=== PATIENT | male | born 1985 | race Caucasian/White ===

== ENCOUNTER 2022-01-20 22:51 | Emergency (ER) | payer MEDICARE, SELFPAY ==
[2022-01-20 23:08] VITALS: BP 113/83; PULSE 111; RESP 20; TEMP 36.9; O2SAT 97; BMI 24.3
--- NOTE | 2022-01-20 23:35 | CRLHL7_ITS ---
For Patients: As a result of the Cures Act, medical imaging exams and procedure reports are released immediately into your electronic medical record. You may view this report before your referring provider. If you have questions, please contact your health care provider. INDICATION: Knee swelling, pain TECHNIQUE: Knee radiograph 3 views COMPARISON: None FINDINGS: Bone: No acute fractures or aggressive bone lesions are identified. Remote fracture deformity of the distal femur with intramedullary mylene and distal interlocking screw are noted. Joint: The medial, lateral, and patellofemoral compartments are unremarkable. Large knee effusion is present. Soft tissue: Unremarkable. No radiopaque foreign bodies are seen. IMPRESSIONS: 1. No acute osseous injuries or abnormalities are noted. 2. Large knee effusion is present. Dictated by Andres Tripathi MD @ 01/21/2022 12:05:58 AM Dictated by: Andres Tripathi MD @ 01/21/2022 00:06:04 (Electronically Signed)
[2022-01-20] MEDS: KETOROLAC 60 MG/2 ML inj IM (23:55)
[2022-01-21 01:10] VITALS: BP 128/87; PULSE 95; RESP 18; O2SAT 98
[2022-01-21] MEDS: KETAMINE HCL 20 MG in 0.9 % SODIUM CHLORIDE 100 ml 100 ML 300.6 MG IVPB (01:12)
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
--- NOTE | 2022-01-21 04:05 | PC.NURSE ---
Patient now reporting poor pain control and is requesting medication for pain. Dr. Norris notified.
[2022-01-21 04:10] VITALS: BP 110/88; PULSE 88; RESP 18; O2SAT 98
[2022-01-21] MEDS: HYDROmorphone 0.5 mg/0.5 ml inj IVP (04:22)
--- NOTE | 2022-01-21 04:29 | PC.NURSE ---
Dilauded given. Patient placed on continuous pulse oximetry.
--- NOTE | 2022-01-21 06:21 | ED.NURSE ---
Patient c/o increasing knee pain. MD notified.
--- NOTE | 2022-01-21 07:00 | PC.NURSE ---
Patient discharged. Patient is in agreement and requests to wait in the waiting room for a taxi to bring him home.
== END 2022-01-21 07:05 | disposition home or self-care (01) ==
PROVIDERS: Emergency Provider Family Medicine
DX: M25.461 Effusion, right knee (principal); M25.561 Pain in right knee
CPT/HCPCS: 73562; 96365; 96372; 96375; 99283; 99284; J1170; J1885; J3490

== ENCOUNTER 2022-02-27 10:19 | Outpatient (CLI) | payer MEDICARE, SELFPAY | END 2022-02-27 10:20 | disposition home or self-care (01) | LOC: AMB 03-29 10:18 | PROVIDERS: Visit Provider Family Medicine | DX: S09.90XA Unspecified injury of head, initial encounter (principal); V49.9XXA Car occupant (driver) (passenger) injured in unspecified traffic accident, initial encounter; Y92.413 State road as the place of occurrence of the external cause | CPT/HCPCS: A0425; A0427 ==

== ENCOUNTER 2022-05-10 03:27 | Emergency (ER) | payer MEDICARE, SELFPAY ==
[2022-05-10 03:33] VITALS: BP 132/78; PULSE 87; RESP 18; TEMP 36.7; O2SAT 99; BMI 24.3
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
[2022-05-10 04:05] VITALS: BP 135/84; PULSE 85; RESP 18; O2SAT 99
[2022-05-10] MEDS: LIDOCAINE 1% MDV 3 ML INJECTION (04:10)
[2022-05-10 04:11] VITALS: BP 132/78; PULSE 87; RESP 18; TEMP 36.7
--- OUTSIDE RECORDS SUMMARY | 2022-05-10 04:12 | XMS_ITS | Encounter Summary ---
:1985 Author Organization [facility] Address [address] [place] [address] Care Team Providers Name Role Phone Meng Conner MD Primary Care Provider Unavailable Reason for Visit Procedure/Equipment (Routine) - Incomplete Specialty Diagnoses / Procedures Referred By Contact Refer red To Contact Diagnoses Effusion of right knee Fidencio Yuen, DO Procedures MR Knee Rt WO IV Cont W Metal Suppression [place] [id number] [place] [address] Referral ID Status Reason Start Date Expiration Date Visits V isits Requested Authorized [id number] Incomplete 01/21/2022 04/22/2023 1 1 Encounter Details Date Type Department Care Team Description 01/21/2022 [facility] [place] Fidencio Benítez Effusion of right Procedure [place] [address] J, DO knee Radiology [place] [address] [address] [place], [place] [address] [address] [place], [place] [phone] (Work) [phone] Social History Tobacco Use Types Packs/Day Years Used Date Smoking Tobacco: Unknown Alcohol Use Standard Drinks/Week Comments No 0 (1 standard drink = 0.6 oz pure alcoho l) Sex Assigned at Date Recorded Not on file documented as of this encounter Plan of Treatment Upcoming Encounters Date Type Specialty Care Team Description 05/16/2022 Appointment Orthopedics Derrell Lei MD [address] [place] [phone] (Wo rk) documented as of this encounter Procedures Procedure Name Priority Date/Time Associated Comments Diagnosis MR KNEE RT WO IV CONT STAT 01/21/2022 8:48 PM Effusion of r ight Results for this W METAL SUPPRESSION CDT knee procedur e are in the results section. documented in this encounter Results MR Knee Rt WO IV Cont W Metal Suppression (01/21/2022 8:48 PM CDT) Anatomical Region Laterality Modality Lower Extremity, Knee, MSK Right Magnetic Reso nance Specimen (Source) Anatomical Collection Method Collection Time Re ceived Time Location / / Volume Laterality 01/21/2022 8:11 PM CDT Impressions 01/22/2022 8:06 AM CDT TECHNIQUE: ??Routine MRI of the right knee was performed without contrast using metal suppression technique. COMPARISON: ??12/16/2021. FINDINGS: MEDIAL COMPARTMENT: ??There are no focal cartilage defects. The medial meniscus is normal without evidence of tear. LATERAL COMPARTMENT: ??There are no foca l cartilage defects. There is subtle blunting and irregularity involving the apical free edge of the mid body of the lateral meniscus on one image only (image 10 of series 6), equivocal for small area o f fraying. 3 mm osteochondral body in the posterior aspect of the lateral compartment is unchanged. PATELLOFEMORAL JOINT: ??Previously seen chondral flap tear in the cartilage of the inferior aspect of the central trochlea is not definitely identified on today's examination. There is minimal superfici al fissuring in the cartilage of the med ial patellar facet. There is a new large joint effusion. There are multiple lobulated areas of intermediate signal intensity throughout the joint which may repres ent hemorrhagic debris. Given that this finding was not present on the previous MRI from one month ago, this is unlikely to represent pigmented villonodular synovitis. LIGAMENTS AND TENDONS: ??The anterior an d posterior cruciate ligaments, medial collateral ligament, iliotibial band, fibular collateral ligament and biceps femoris tendons are intact. The popliteus musc le and tendon are normal. There is no ev idence of injury to the posterolateral corner supporting structures. EXTENSOR MECHANISM: The quadriceps and p atellar tendons are normal. The medial retinaculum, medial patellofemoral ligament, and lateral retinaculum are normal. MARROW AND SOFT TISSUES: ??There is intr amedullary mylene and screw fixation of the distal femur. Moderate soft tissue edema about the joint is likely related to the large joint effusion. IMPRESSION: ?? 1.New large joint effusion with multiple lobulated areas of intermediate signal intensity throughout the joint which may represent proteinaceous or hemorrhagic debris. Given that this is a new finding f rom the prior MRI from one month ago, pi gmented villonodular synovitis wouldn't be less likely. Septic arthritis would not be excluded. 2. Subtle blunting and irregularity invo lving the apical free edge of the mid body of the lateral meniscus on one image only is equivocal for small area of fraying. The meniscus is otherwise intact. 3. No change in 3 mm osteochondral body in the posterior aspect of the lateral compartment. 4. Previously seen chondral flap tear in the central trochlea inferiorly is not definitely identified on today's examination. Procedure Note Orestes Rosa MD - 01/22/2022 IMPRESSION TECHNIQUE: Routine MRI of the right knee was performed without contrast using metal suppression technique. COMPARISON: 12/16/2021. FINDINGS: MEDIAL COMPARTMENT: There are no focal c artilage defects. The medial meniscus is normal without evidence of tear. LATERAL COMPARTMENT: There are no focal cartilage defects. There is subtle blunting and irregularity involving the apical free edge of the mid body of the lateral meniscus on one image only (image 10 of series 6), equivocal for small area of fraying. 3 m m osteochondral body in the posterior aspect of the lateral compartment is unchanged. PATELLOFEMORAL JOINT: Previously seen ch ondral flap tear in the cartilage of the inferior aspect of the central trochlea is not definitely identified on today's examination. There is minimal superficial fissuring in the cartilage of the medial patellar facet. There is a new large joint effusion. There are multiple lobulated areas of intermediate signal intensity throughout the joint which may represent hemorrhagic debris. Given that this finding was not present on the previous MRI from one month ago, this is unlikely to represent pigmented villonodular synovitis. LIGAMENTS AND TENDONS: The anterior and posterior cruciate ligaments, medial collateral ligament, iliotibial band, fibular collateral ligament and biceps femoris tendons are intact. The popliteus muscle and tendon are normal. There is no evidence of injury t o the posterolateral corner supporting structures. EXTENSOR MECHANISM: The quadriceps and p atellar tendons are normal. The medial retinaculum, medial patellofemoral ligament, and lateral retinaculum are normal. MARROW AND SOFT TISSUES: There is intram edullary mylene and screw fixation of the distal femur. Moderate soft tissue edema about the joint is likely related to the large joint effusion. IMPRESSION: 1.New large joint effusion with multiple lobulated areas of intermediate signal intensity throughout the joint which may represent proteinaceous or hemorrhagic debris. Given that this is a new finding from the prior MRI from one month ago, pigmented villonodul ar synovitis wouldn't be less likely. Septic arthritis would not be excluded. 2. Subtle blunting and irregularity invo lving the apical free edge of the mid body of the lateral meniscus on one image only is equivocal for small area of fraying. The meniscus is otherwise intact. 3. No change in 3 mm osteochondral body in the posterior aspect of the lateral compartment. 4. Previously seen chondral flap tear in the central trochlea inferiorly is not definitely identified on today's examination. 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
--- OUTSIDE RECORDS SUMMARY | 2022-05-10 04:12 | XMS_ITS | Encounter Summary ---
:1985 Author Organization Replaced by [facility] Address [address] [place] [address] Care Team Providers Name Role Phone Meng Conner MD Primary Care Provider Unavailable Reason for Visit Procedure/Equipment (Routine) - Incomplete Specialty Diagnoses / Procedures Referred By Contact Refer red To Contact Diagnoses Right knee pain, unspecified chronicity Right knee injury, sequela Demarcus Brunner MD Procedures MR Knee Rt WO IV Cont W Metal Suppression [address] [place] [place] [address] Referral ID Status Reason Start Date Expiration Date Visits V isits Requested Authorized [id number] Incomplete 12/13/2021 03/14/2023 1 1 Encounter Details Date Type Department Care Team Description 12/16/2021 Ancillary [facility] Radiology MRI Demarcus Brunner, Right knee pain, unspecified chronicity; Procedure [address] Right knee injury, sequela Drive [address] [facility] [place] [address] [phone] Social History Tobacco Use Types Packs/Day Years Used Date Smoking Tobacco: Unknown Alcohol Use Standard Drinks/Week Comments No 0 (1 standard drink = 0.6 oz pure alcoho l) Sex Assigned at Date Recorded Not on file documented as of this encounter Plan of Treatment Upcoming Encounters Date Type Specialty Care Team Description 05/16/2022 Appointment Orthopedics Derrell Lei MD [address] [place] [phone] (Wo rk) documented as of this encounter Procedures Procedure Name Priority Date/Time Associated Diagnosis Comme nts MR KNEE RT WO IV STAT 12/16/2021 9:02 AM Right knee pain, R esults for this CONT W METAL CDT unspecified procedure are i n SUPPRESSION chronicity the results Right knee injury, section. sequela documented in this encounter Results MR Knee Rt WO IV Cont W Metal Suppression (12/16/2021 9:02 AM CDT) Anatomical Region Laterality Modality Lower Extremity, Knee, MSK Right Magnetic Reso nance Specimen (Source) Anatomical Collection Method Collection Time Re ceived Time Location / / Volume Laterality 12/16/2021 8:19 AM CDT Impressions 12/16/2021 9:08 AM CDT TECHNIQUE: ??Routine MRI of the right knee was performed without contrast. COMPARISON: ??Radiographs dated FINDINGS: MEDIAL COMPARTMENT: ??There are no focal cartilage defects. The medial meniscus is normal without evidence of tear. LATERAL COMPARTMENT: ??There are no foca l cartilage defects. The lateral meniscus is normal without evidence of tear. PATELLOFEMORAL JOINT: ??There is a 3 mm chondral flap tear at the inferior aspect of the central trochlear groove (series 5 slice 19). There is mild adjacent chondral thinning. There is no significant j oint effusion or popliteal cyst. There i s a 3 mm ossicle cartilaginous body at the posterior aspect of the lateral compartment (sagittal slice 18). LIGAMENTS AND TENDONS: ??The anterior an d [...] normal. MARROW AND SOFT TISSUES: ??There is no e vidence of stress reaction, fracture or avascular necrosis. There is intramedullary mylene with interlocking screw in the distal femur, resulting in susceptibility a rtifact. There is no evidence of a soft tissue mass. There is post surgical scarring in Hoffa's fat. IMPRESSION: ?? 1. Mild chondromalacia of the trochlear groove. 2. 3 mm intra-articular body at the post erior aspect of the lateral compartment. 3. No evidence of a meniscal or ligament tear. Procedure Note Justen Coelho MD - 12/16/2021Fo rmatting of this note might be different from the original. IMPRESSION TECHNIQUE: Routine MRI of the right knee was performed without contrast. COMPARISON: Radiographs dated 11/13/2021 FINDINGS: MEDIAL COMPARTMENT: There are no focal c artilage defects. The medial meniscus is normal without evidence of tear. LATERAL COMPARTMENT: There are no focal cartilage defects. The lateral meniscus is normal without evidence of tear. PATELLOFEMORAL JOINT: There is a 3 mm ch ondral flap tear at the inferior aspect of the central trochlear groove (series 5 slice 19). There is mild adjacent chondral thinning. There is no significant joint effusion or popliteal cyst. There is a 3 mm ossicle cartilaginous body at the posterior aspect of the lateral compartment (sagittal slice 18). LIGAMENTS AND TENDONS: The anterior and posterior [...] normal. MARROW AND SOFT TISSUES: There is no mary carmen dence of stress reaction, fracture or avascular necrosis. There is intramedullary mylene with interlocking screw in the distal femur, resulting in susceptibility artifact. There is no evidence of a soft tissue mass. There is post surgical scarring in Hoffa's fat. IMPRESSION: 1. Mild chondromalacia of the trochlear groove. 2. 3 mm intra-articular body at the post erior aspect of the lateral compartment. 3. No evidence of a meniscal or ligament tear. Demarcus Brunner MD RAD MRI documented in this encounter Visit Diagnoses Diagnosis Right knee pain, unspecified chronicity Right knee injury, sequela documented in this encounter Care Teams Motor Coach Bus Driver Relationship Specialty Start Date End Date Meng Conner MD PCP - General 02/03/[address] [facility], [address] documented as of this encounter
--- OUTSIDE RECORDS SUMMARY | 2022-05-10 04:12 | XMS_ITS | Encounter Summary ---
:1985 Author Organization Formerly [facility], [facility] Address [address], [place] [address] Care Team Providers Name Role Phone Meng Conner MD Primary Care Provider Unavailable Reason for Visit Reason Comments Follow-up Right knee Encounter Details Date Type Department Care Team Description 02/25/2022 Office Visit Sy Goinsart hrosis, right knee (Primary Dx); Orthopedic Urgent Marquita Ceballos MD Pain and swelling of right knee Care [id number] [place] [address] [place] [address] [phone] Social History Tobacco Use Types Packs/Day Years Used Date Smoking Tobacco: Unknown Alcohol Use Standard Drinks/Week Comments No 0 (1 standard drink = 0.6 oz pure alcoho l) Sex Assigned at Date Recorded Not on file documented as of this encounter Last Filed Vital Signs Vital Sign Reading Time Taken Comments Blood Pressure - - Pulse - - Temperature 36.7 ??C (98 ??F) 02/25/2022 3:09 PM CDT Respiratory Rate - - Oxygen Saturation - - Inhaled Oxygen Concentration - - Weight - - Height - - Body Mass Index - - documented in this encounter Patient Instructions Patient InstructionsSchLee Ann lu, ATC - 02/25/2022 2:30 PM CDT Thank you for choosing [facility] for your health care visit today. Sy Beal MD Imaging Bus Attendant: [facility] [id number] [place] [address]. Call [phone] to schedule. Medication Requests: Prescriptions are filled on Weekdays before 3:00PM For all medication refills: Request a refill using [facility] or contact your Pharmacy Paperwork Requests: FMLA or disability paperwork can be faxed to: [phone] Please allow 7-10 business days for completion of all paperwork. [employer] Work[employer]'s [employer] Services: E-mail Address: [email or web address] What is Know Your Cost? Know Your Cost is a service for patients and patient/members to call and receive personalized cost information and estimates across our care group. The phone number is (COST) Sunday - Sunday 8 AM to 5 PM To request copies of your medical records, call: [phone] (option 4) Diagnosis: R knee effusion Plan: Follow Up: With Dr. García. Medications: Your physician has sent a prescription for Hydrocodone- Acetaminophen ([place]) and Indocin to your preferred pharmacy. Take this medication as instructed. Please be sure to review all information provided on your prescription regarding this drug and any potential side effects you may experience. Ask your pharmacist if any questions arise. RICE: - No weight-bearing with the affected limb. - Gentle range of motion. Brace/DME: You were provided a Knee sleeve and Crutches in clinic today. Please use and care according to instructions given today. This item will be billed to your insurance. If insurance does not cover this item, you will be billed for any uncovered amount. You should wear your items as directed in clinic. If you have any questions regarding your visit or next steps, please contact us at [phone]. documented in this encounter Progress Notes Sy Beal MD - 02/25/2022 2:30 PM CDT Clinic Progress Note Patient Name: Landon Lerma : 1985 Date of Service: 02/25/2022 CC: Chief Complaint Patient presents with Follow-up Right knee HPI: Landon Lerma is a 36 y.o. male presenting for follow-up evaluation and treatment of right knee injury. He has been seen multiple at essentially all of our urgent cares and most recently Dr. Darby at the Orthopedic clinic. Note from 01/25/2022 was review. He had hemarthrosis at that time. Notes he took 2 weeks off of work. He was helping his girlfriend move today and exacerbated his knee pain. 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 Looks very uncomfortable. Neuro: Neurovascular status is normal. MSK/Extremities: Right knee: positive for a large effusion, no redness or warmth. Tender on palpation on medial and lateral joint lines. Able to actively extend the knee although guarding because of pain. tenderness onpalpation of the entire knee. range of motion limited to about 30-90 degrees. Gait: antalgic IMAGING: MRI right knee 01/21/2022 IMPRESSION: 1.New large joint effusion with multiple lobulated areas of intermediate signal intensity throughoutthe joint which may represent proteinaceous or hemorrhagic debris. Given that this is a new finding from the prior MRI from one month ago, pigmented villonodular synovitis wouldn't be less likely. Septic arthritis would not be excluded. 2. Subtle blunting and irregularity involving the apical free [...] is not definitely identified on today's examination. ASSESSMENT: 1. Pain and swelling of right knee 2. Hemarthrosis, right knee PLAN: I recommended an aspiration procedure and possibly cortisone injection if the aspirate is not bloody. I also recommended an orthopedic surgery consult. He has seen Dr. Darby in the past. It looks like labs were ordered by Dr. Darby but not completed. There is a question of PVS of his last MRI although the official report was somewhat vague. Pain management: I think opioids at this point is appropriate. On review of his history he has a past history of methamphetamine use. No concerning findings on the PDMP report. Indomethacin was also given. He was also given crutches. I also encouraged range of motion exercises for the knee as tolerated. Landon agrees with the above treatment plan and advised to call the clinic with worsening symptoms or other concerns. All questions answered. PROCEDURE: The risk and benefits of knee joint aspiration was explained to the patient. Verbal informed consentwas obtained. After sterile prep with iodine follow by alcohol wipes, the right knee joint was aspirated and yielded 10 mL of bloody synovial joint fluid. A steroid injection was not given because of this. A sterile compression dressing was applied. Scribe Disclosure: Scribed for Sy Beal MD by elle Caraballo, on 02/26/2022 at 1:42 PM. I, Sy Beal MD, have personally reviewed and agreed with the information entered by the scribe. documented in this encounter Plan of Treatment Upcoming Encounters Date Type Specialty Care Team Description 05/16/2022 Appointment Orthopedics Derrell Lei MD [address] [place], [place] [address] (Wo rk) documented as of this encounter Visit Diagnoses Diagnosis Hemarthrosis, right knee - Primary Pain and swelling of right knee documented in this encounter Care Teams Cod Clerk Relationship Specialty Start Date End Date Meng Conner MD PCP - General 02/03/[address] [facility], [address] documented as of this encounter
--- OUTSIDE RECORDS SUMMARY | 2022-05-10 04:12 | XMS_ITS | Encounter Summary ---
:1985 Author Organization [facility] Address [address] [place] [address] Care Team Providers Name Role Phone Meng oCnner MD Primary Care Provider Unavailable Encounter Details Date Type Department Care Team Description 03/04/2022 Lab Visit [facility] Hemarthrosis [address] [place] [address] Social History Tobacco Use Types Packs/Day Years Used Date Smoking Tobacco: Unknown Alcohol Use Standard Drinks/Week Comments No 0 (1 standard drink = 0.6 oz pure alcoho l) Sex Assigned at Date Recorded Not on file documented as of this encounter Plan of Treatment Upcoming Encounters Date Type Specialty Care Team Description 05/16/2022 Appointment Orthopedics Derrell Lei MD [address] [place] [address] (Wo rk) documented as of this encounter Procedures Procedure Name Priority Date/Time Associated Diagnosis Comme nts CBC AND DIFFERENTIAL Routine 03/04/2022 3:42 Hemarthrosis Resu lts for this PANEL PM CDT procedure are i n the results section. ANTI-CCP AB Routine 03/04/2022 3:42 Hemarthrosis Results for this PM CDT procedure are i n the results section. COMPLETE BLOOD Routine 03/04/2022 3:42 Hemarthrosis Results fo r this COUNT-W/DIFF PM CDT procedure are i n the results section. BASIC METABOLIC PANEL Routine 03/04/2022 3:42 Hemarthrosis Res ults for this PM CDT procedure are i n the results section. APTT (ACTIVATED Routine 03/04/2022 3:42 Hemarthrosis Results f or this PARTIAL THROMBOPLASTIN PM CDT proce dure are in TIME the results section. RHEUMATOID FACTOR, Routine 03/04/2022 3:42 Hemarthrosis Result s for this QUANT PM CDT procedure are i n the results section. C-REACTIVE PROTEIN Routine 03/04/2022 3:42 Hemarthrosis Result s for this PM CDT procedure are i n the results section. MARLINE, QUANT (TITER) Routine 03/04/2022 3:42 Hemarthrosis Result s for this PM CDT procedure are i n the results section. URIC ACID Routine 03/04/2022 3:42 Hemarthrosis Results for this PM CDT procedure are i n the results section. INR/PROTIME Routine 03/04/2022 3:42 Hemarthrosis Results for this PM CDT procedure are i n the results section. ESR Routine 03/04/2022 3:42 Hemarthrosis Results for this PM CDT procedure are i n the results section. documented in this encounter Results Complete Blood Count-W/Diff (03/04/2022 3:42 PM CDT) P athologist Signature WBC 7.8 3.5 - 10.5 03/04/2022 [facility] x10(9)/L 3:47 PM CDT LABORATORY RBC 4.81 4.32 - 03/04/2022 [facility] 5.72 3:47 PM CDT LABORATORY x10(12)/L Hemoglobin 14.0 13.5 - 03/04/2022 [facility] 17.5 g/dL 3:47 PM CDT LABORATORY HCT 43.2 38.8 - 03/04/2022 [facility] 50.0 % 3:47 PM CDT LABORATORY MCV 89.8 80.0 - 03/04/2022 [facility] 100.0 fL 3:47 PM CDT LABORATORY MCH 29.1 27.6 - 03/04/2022 [facility] 33.3 pg 3:47 PM CDT LABORATORY MCHC 32.4 31.5 - 03/04/2022 [facility] 35.2 g/dL 3:47 PM CDT LABORATORY RDW 12.8 11.9 - 03/04/2022 [facility] 15.5 % 3:47 PM CDT LABORATORY Platelets 313 150 - 450 03/04/2022 [facility] x10(9)/L 3:47 PM CDT LABORATORY Automated NRBC 0 <=0 /100 03/04/2022 [facility] WBC 3:47 PM CDT LABORATORY Neutrophil 5.2 1.7 - 7.0 03/04/2022 [facility] Absolute 10(9)/L 3:47 PM CDT LABORATORY Lymphocyte 1.5 1.0 - 4.8 03/04/2022 [facility] Absolute 10(9)/L 3:47 PM CDT LABORATORY Monocytes 0.6 0.2 - 0.9 03/04/2022 [facility] Absolute 10(9)/L 3:47 PM CDT LABORATORY Eosinophil 0.4 0.0 - 0.5 03/04/2022 [facility] Absolute 10(9)/L 3:47 PM CDT LABORATORY Basophil 0.1 0.0 - 0.3 03/04/2022 [facility] Absolute 10(9)/L 3:47 PM CDT LABORATORY Immature Gran % 0.3 0.0 - 0.5 03/04/2022 [facility] % 3:47 PM CDT LABORATORY Specimen Anatomical Collection Method / Collection Time Recei marysol Time (Source) Location / Volume Laterality Blood Venipuncture / 03/04/2022 3:42 03/04/2022 3:44 Unknown PM CDT PM CDT Alonzo García MD LAB_1 Performing Organization Address City/[facility]/ZIP Code Phon e Number [facility] [address] [place] [phone] INR/Protime (03/04/2022 3:42 PM CDT) P athologist Signature Protime 12.8 11.8 - 14.6 03/04/2022 [facility] Seconds 3:57 PM CDT LABORATORY INR 1.0 0.9 - 1.1 03/04/2022 [facility] 3:57 PM CDT LABORATORY Specimen Anatomical Collection Method / Collection Time Recei marysol Time (Source) Location / Volume Laterality Blood Venipuncture / 03/04/2022 3:42 03/04/2022 3:44 Unknown PM CDT PM CDT Narrative [facility] - 03/04/2022 3:57 PM CDT Therapeutic range determined by protocol established by anticoagulation provider. Alonzo García MD LAB_1 Performing Organization Address City/[facility]/ZIP Code Phon e Number [facility] [address] [place] [address] APTT (Activated Partial Thromboplastin Time) (03/04/2022 3:42 PM CDT) P athologist Signature APTT 30.4 22.5 - 36.5 03/05/2022 [facility] Seconds 5:46 PM CDT LABORATORY Specimen Anatomical Collection Method / Collection Time Recei marysol Time (Source) Location / Volume Laterality Blood Venipuncture / 03/04/2022 3:42 03/04/2022 3:44 Unknown PM CDT PM CDT Alonzo García MD LAB_1 Performing Organization Address [facility] Phon e Number [facility] [address] [place] [address] Uric Acid (03/04/2022 3:42 PM CDT) athologist Signature Uric Acid 5.9 3.5 - 7.2 03/04/2022 [facility] mg/dL 4:12 PM CDT LABORATORY Specimen Anatomical Collection Method / Collection Time Recei marysol Time (Source) Location / Volume Laterality Blood Venipuncture / 03/04/2022 3:42 03/04/2022 3:44 Unknown PM CDT PM CDT Alonzo García MD LAB_1 Performing Organization Address [facility] Phon e Number [facility] [address] [place] [address] Rheumatoid Factor, Quant (03/04/2022 3:42 PM CDT) Analysis Performed At Path logist Time Signature Rheumatoid <15 <=30 IU/mL 03/04/2022 [facility] Factor, 8:13 PM CDT LABORATORY Quantitative Specimen Anatomical Collection Method / Collection Time Recei marysol Time (Source) Location / Volume Laterality Blood Venipuncture / 03/04/2022 3:42 03/04/2022 3:44 Unknown PM CDT PM CDT Alonzo García MD LAB_1 Performing Organization Address [facility] Phon e Number [facility] [address] [place] [address] (ABNORMAL) C-Reactive Protein (03/04/2022 3:42 PM CDT) athologist [facility] C-Reactive 1.5 (H) 0.0 - 0.7 03/04/2022 [facility] Protein mg/dL 4:12 PM CDT LABORATORY Specimen Anatomical Collection Method / Collection Time Recei marysol Time (Source) Location / Volume Laterality Blood Venipuncture / 03/04/2022 3:42 03/04/2022 3:44 Unknown PM CDT PM CDT Alonzo García MD LAB_1 Performing Organization Address [facility]/ZIP Code Phon e Number [facility] [address] [place], [place] [phone] ESR (03/04/2022 3:42 PM CDT) [facility] gist Method Time Signature Sedimentation Rate 13 0 - 15 03/04/2022 [facility] mm/hr 4:20 PM CDT LABORATORY Specimen Anatomical Collection Method / Collection Time Recei marysol Time (Source) Location / Volume Laterality Blood Venipuncture / 03/04/2022 3:42 03/04/2022 3:44 Unknown PM CDT PM CDT Alonzo García MD LAB_1 Performing Organization Address City/[facility] Phon e Number [facility] [address] [place] [address] Basic Metabolic Panel (03/04/2022 3:42 PM CDT) athologist [facility] Sodium 142 136 - 145 03/04/2022 [facility] mmol/L 4:12 PM CDT LABORATORY Potassium 4.5 3.5 - 5.1 03/04/2022 [facility] mmol/L 4:12 PM CDT LABORATORY Chloride 107 98 - 109 03/04/2022 [facility] mmol/L 4:12 PM CDT LABORATORY CO2 26 20 - 29 03/04/2022 [facility] mmol/L 4:12 PM CDT LABORATORY Anion Gap 9 7 - 16 03/04/2022 [facility] mmol/L 4:12 PM CDT LABORATORY Calcium 9.6 8.4 - 10.4 03/04/2022 [facility] mg/dL 4:12 PM CDT LABORATORY BUN 13 7 - 26 03/04/2022 [facility] mg/dL 4:12 PM CDT LABORATORY Creatinine 0.90 0.73 - 03/04/2022 [facility] 1.18 mg/dL 4:12 PM CDT LABORATORY GFR, Estimated >60 >60 03/04/2022 [facility] mL/min/1.7 4:12 PM CDT LABORATORY 3m2 Glucose 94 70 - 100 03/04/2022 [facility] mg/dL 4:12 PM CDT LABORATORY Comment: The given reference range is fo r the fasting state. Non-fasting reference range for glucose is 70 - 180 mg/dL. Hours Fasting 19 03/04/2022 4:12 PM CDT [facility] Specimen Anatomical Collection Method / Collection Time Recei marysol Time (Source) Location / Volume Laterality Blood Venipuncture / 03/04/2022 3:42 03/04/2022 3:44 Unknown PM CDT PM CDT Alonzo García MD LAB_1 Performing Organization Address City/[facility]/ZIP Code Phon e Number [facility] [address] [place] [address] CCP Antibody (03/04/2022 3:42 PM CDT) [facility] Method Time Signature Anti-CCP Antibody 3 <7 U/mL 03/06/2022 [facility] 2:20 PM CDT [facility] Anti-CCP Antibody Negative Negative 03/06/2022 [facility] Interpretation 2:20 PM CDT [facility] Specimen Anatomical Collection Method / Collection Time Recei marysol Time (Source) Location / Volume Laterality Blood Venipuncture / 03/04/2022 3:42 03/04/2022 3:44 Unknown PM CDT PM CDT Narrative [facility] - 03/06/2022 2:20 PM CDT This result was obtained with the [employer]hadia 250. Quantitative results cannot be directly compared to other manufacturers' methods . Alonzo García MD LAB_1 Performing Organization Address City/[facility]/ZIP Code Phon e Number [facility] [address] [address] (ABNORMAL) MARLINE by IFA with Pattern (03/04/2022 3:42 PM CDT) P athologist Signature MARLINE Titer 1:160 (A) <1:80 03/06/2022 [facility] 1:26 PM CDT LABORATORY MARLINE Pattern Speckled 03/06/2022 [facility] 1:26 PM CDT LABORATORY Comment: A positive MARLINE in isolation car dali a low specificity for autoimmune rheumatic disease. A positive MARLINE is fou nd in 3-15% of healthy individuals. If MARLINE is positive consider following up with extr actable nuclear antigens and dsDNA antibody testing. MARLINE Interpretation Positive (A) Negative 03/06/2022 1:26 PM [facility] CDT Specimen Anatomical Collection Method / Collection Time Recei marysol Time (Source) Location / Volume Laterality Blood Venipuncture / 03/04/2022 3:42 03/04/2022 3:44 Unknown PM CDT PM CDT Alonzo García MD LAB_1 Performing Organization Address City/State/ZIP Code Phon e Number [facility] [address] [place] [address] documented in this encounter Visit Diagnoses Diagnosis Hemarthrosis Hemarthrosis, site unspecified documented in this encounter Care Teams Floor Worker Relationship Specialty Start Date End Date Meng Conner MD PCP - General 02/03/[address] [facility], [address] documented as of this encounter
--- OUTSIDE RECORDS SUMMARY | 2022-05-10 04:12 | XMS_ITS | Encounter Summary ---
:1985 Author Organization [facility] Address [address] [place] [address] Care Team Providers Name Role Phone Meng Conner MD Primary Care Provider Unavailable Reason for Visit Reason Comments Other Paperwork to be excused for missing work Encounter Details Date Type Department Care Team Description 03/04/2022 Office Visit [facility] Right knee p ain, Orthopedic Urgent Ca re unspecified chronicity [id number] (Primary Dx) [place] [address] Social History Tobacco Use Types Packs/Day Years Used Date Smoking Tobacco: Unknown Alcohol Use Standard Drinks/Week Comments No 0 (1 standard drink = 0.6 oz pure alcoho l) Sex Assigned at Date Recorded Not on file documented as of this encounter Progress Notes Ashley Duffy RN - 03/04/2022 3:50 PM CDT Patient showed to [facility] for work 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 Patient requested to be excused from work for 03/04/22 and 03/05/22. Dr. Yuen wrote and signed the note per patient's request. Ashley Duffy RN documented in this encounter Plan of Treatment Upcoming Encounters Date Type Specialty Care Team Description 05/16/2022 Appointment Orthopedics Derrell Lei MD [address] [place] [address] (Wo rk) documented as of this encounter Visit Diagnoses Diagnosis Right knee pain, unspecified chronicity - Primary documented in this encounter Care Teams Electrical Systems Design Engineer Relationship Specialty Start Date End Date Meng Conner MD PCP - General 02/03/[address] [facility], [address] documented as of this encounter
--- OUTSIDE RECORDS SUMMARY | 2022-05-10 04:12 | XMS_ITS | Encounter Summary ---
:1985 Author Organization [facility] Address [address] [address] Care Team Providers Name Role Phone Meng Conner MD Primary Care Provider Unavailable Reason for Visit Reason Comments Knee Pain or Injury Follow-up Follow up Right Knee Encounter Details Date Type Department Care Team Description 04/14/2022 Office Visit TRIFidencio Amaya Villon odular synovitis Orthopedic Urgent DO (pigmented), right Care [address] DEARY knee (Primary Dx) [id number] [place] [phone] Social History Tobacco Use Types Packs/Day Years Used Date Smoking Tobacco: Unknown Alcohol Use Standard Drinks/Week Comments No 0 (1 standard drink = 0.6 oz pure alcoho l) Sex Assigned at Date Recorded Not on file documented as of this encounter Last Filed Vital Signs Vital Sign Reading Time Taken Comments Blood Pressure - - Pulse - - Temperature 36.8 ??C (98.2 ??F) 04/14/2022 7:06 PM COFFEE MAKER Respiratory Rate - - Oxygen Saturation - - Inhaled Oxygen Concentration - - Weight - - Height - - Body Mass Index - - documented in this encounter Patient Instructions Patient InstructionsClara Flower, ATC - 04/14/2022 7:00 PM CST Thank you for choosing [facility] for your health care visit today. Fidencio Yuen DO Imaging Supervisor Drilling And Shooting: [facility] [address] [place] [address]. Call [phone] to schedule. Medication Requests: Prescriptions are filled on Weekdays before 3:00PM For all medication refills: Request a refill using MyChart or contact your Pharmacy Paperwork Requests: FMLA or disability paperwork can be faxed to: [phone] Please allow 7-10 business days for completion of all paperwork. [facility] Worker's Compensation Services: E-mail Address: [email or web address] What is Know Your Cost? Know Your Cost is a service for patients and patient/members to call and receive personalized cost information and estimates across our care group. The phone number is (COST) Sunday - Sunday 8 AM to 5 PM To request copies of your medical records, call: [phone] (option 4) Diagnosis: Right Knee pain Plan: Follow Up: as scheduled The following medications were prescribed at your visit : Orders Placed This Encounter Medications predniSONE (DELTASONE) 20 MG tablet Sig: Take 2 Tablets (40 mg) by mouth daily for 3 days, THEN 1 Tablet (20 mg) daily for 4 days. Dispense: 10 Tablet Refill: 0 Medication Refill Requests: Prescription Refill Requests are not filled on Weekends or on Weekdays after 3:00PM For all medication refills: Request a refill using MyChart or contact your Pharmacy If you have any questions regarding your visit or next steps, please contact us at [phone]. EE MAKER documented in this encounter Progress Notes Fidencio Yuen, DO - 04/14/2022 12:00 AM CST NAME: MISSY LOVE CSN: [id number] CLINIC NOTE DATE OF SERVICE: 04/14/2022 : 1985 CHIEF COMPLAINT: Acute on chronic right knee pain and swelling. HPI: This is a 37-year-old man, coming in with acute on chronic right knee pain and swelling. He wasseen by me in the past as well as other physicians here including Dr. García and Dr. Emigdio casas last visit. He has ongoing pain. He was wanting a second surgical opinion and he has an appointment next week at [facility] with Dr. Derrell Lei, but he said he was unable to work yesterday ortoday due to the pain, so he feels he needs a work note. He additionally wants the really good anti-inflammatory medications that I got here before. After looking in the chart and more discussing, itsounds like that is prednisone, which had been prescribed by me and possibly someone else in the past. His pain level is 6 to 7/10. He wondered about doing aspiration today as well. PHYSICAL EXAM: GENERAL: This is a pleasant, healthy-appearing 37-year-old man, who is nondistressed.PSYCH: Normal affect. CARDIOVASCULAR: Pulses regular and equal in the lower extremities. NEURO: Sensation preserved in the right leg. RHEUM: No deformities suggesting autoimmune disease. RESPIRATORY: Patient is breathing normally. SKIN: No ecchymosis or lesions visualized. MSK: Exam reveals large suprapatellar effusion, similar to when I saw him in the past. He is nontender at the joint line to palpation. IMAGING: I reviewed MRI done previously in January with findings consistent of villonodular synovitis. I also reviewed laboratory work done by Dr. García including both blood and aspirate workup thatshowed no signs of infection, a positive MARLINE, as well as a positive CRP. Other testing negative. 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 PLAN: I discussed everything with Missy including going over the laboratory work with him. He might benefit from archives specialist referral as well but for now we will leave him with 1 specialist referral and see what Dr. Lei's recommendations would be for him. Additionally, I prescribed him a prednisone taper over 1 week as it helped him before with the pain and swelling. Work note given to beout of work until the visit with Dr. Lei. He is agreeable to the plan and we did discuss aspiration, but given his upcoming visit and the small volume of aspirate that was obtained in the past, wedeferred this for now. He is in agreement with that as well. DO NOLVIA MORAN/VALENT[place] /[id number] EE MAKER documented in this encounter Plan of Treatment Upcoming Encounters Date Type Specialty Care Team Description 05/16/2022 Appointment Orthopedics Derrell Lei MD [address] [place], [place] [address] (Wo rk) documented as of this encounter Visit Diagnoses Diagnosis Villonodular synovitis (pigmented), righ t knee - Primary documented in this encounter Care Teams Transactional Paralegal Relationship Specialty Start Date End Date Meng Conner MD PCP - General 02/03/[address] [facility], [address] documented as of this encounter
--- OUTSIDE RECORDS SUMMARY | 2022-05-10 04:12 | XMS_ITS | Encounter Summary ---
:1985 Author [facility] Address [address] [place] [address] Care Team Providers Name Role Phone Meng Conner MD Primary Care Provider Unavailable Reason for Visit Reason Comments Knee Pain or Injury Encounter Details Date Type Department Care Team Description 05/03/2022 Telephone [facility] Derrell Lei, [facility] [address] [place] [address] [place] [address] [phone] (Wo rk) Social History Tobacco Use Types Packs/Day Years Used Date Smoking Tobacco: Never Smokeless Tobacco: Never Alcohol Use Standard Drinks/Week Comments No 0 (1 standard drink = 0.6 oz pure alcoho l) Sex Assigned at Date Recorded Not on file documented as of this encounter Nursing Notes Derrell Lei MD - 05/05/2022 5:15 PM CST I was able to speak with the patient. We are going to bring him back to clinic on May 16 and will obtain full right femur x-rays. We discussed going ahead with surgery to remove the retrograde nail and 2 take a biopsy of the synovium. I would probably plan to do an arthroscopy at that time as well to evaluate for any loose bodies as these would be easier to identify through an arthroscopy rather than an arthrotomy. Plan for full femur x-rays at follow-up on 05/16. 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 HER EDGER Derrell Lei MD - 05/03/2022 5:05 PM CST Attempted to contact the patient both yesterday and today and got his voicemail both times. He has brody difficult situation. I reviewed his case with 1 of our orthopedic oncologists who do not feel that the MRI has classic appearance for PVNS. If he is continuing to swell, we may need to consider doing a diagnostic arthroscopy with biopsy. We would also take cultures at that time. He had an aspiration previously done in January which did not have any growth. In March his CRP was slightly elevatedhowever he had a normal ESR. I have made the recommendation that he be referred to Rheumatology because he also had a positive MARLINE but I do not see as though this has been completed at least in the [facility] system. HER EDGER documented in this encounter Plan of Treatment Upcoming Encounters Date Type Specialty Care Team Description 05/16/2022 Appointment Orthopedics Derrell Lei MD [address] [place], [place] [phone] (Wo rk) documented as of this encounter Visit Diagnoses Not on filedocumented in this encounter Care Teams Bottom Saw Operator Relationship Specialty Start Date End Date Meng Conner MD PCP - General 02/03/[address] [facility], [address] documented as of this encounter
--- OUTSIDE RECORDS SUMMARY | 2022-05-10 04:12 | XMS_ITS | Encounter Summary ---
:1985 Author Organization [facility] Address [address] [place] [address] Care Team Providers Name Role Phone Meng Conner MD Primary Care Provider Unavailable Reason for Visit Reason Comments Prescription Psych Sales Specialist Encounter Details Date Type Department Care Team Description 02/25/2022 Telephone [facility] Hubbard Prescr iption Psych Sales Specialist [place] [address] [place], [place] [phone] Social History Tobacco Use Types Packs/Day Years Used Date Smoking Tobacco: Unknown Alcohol Use Standard Drinks/Week Comments No 0 (1 standard drink = 0.6 oz pure alcoho l) Sex Assigned at Date Recorded Not on file documented as of this encounter Nursing Notes Ashley Duffy RN - 02/25/2022 6:49 PM CDT Patient notified prescription sent to requested pharmacy. Sy Beal MD - 02/25/2022 6:46 PM CDT Done. Sy Beal MD 02/25/2022, 6:46 PM Ashley Duffy RN - 02/25/2022 6:24 PM CDT Patient called requesting his prescriptions transferred over to [facility] in [place] on [address] Patient will be notified once prescription is transferred over. documented in this encounter Plan of Treatment Upcoming Encounters Date Type Specialty Care Team Description 05/16/2022 Appointment Orthopedics Derrell Lei MD [address] [place], [place] [address] (Wo rk) documented as of this encounter Visit Diagnoses Not on filedocumented in this encounter Care Teams Contemporary Or Modern Dancer Relationship Specialty Start Date End Date Meng Conner MD PCP - General 02/03/[address] [facility], [address] documented as of this encounter
--- OUTSIDE RECORDS SUMMARY | 2022-05-10 04:12 | XMS_ITS | Encounter Summary ---
:1985 Author Organization [facility] Address [address] [place] [address] Care Team Providers Name Role Phone Meng Conner MD Primary Care Provider Unavailable Encounter Details Date Type Department Care Team Description 01/22/2022 Telephone [place] Ethel Meng Barroso MD Urgent Care [address] [place] [address] [phone] Social History Tobacco Use Types [...] Derrell Lei MD [address] [place] [address] (Wo rk) documented as of this encounter Visit Diagnoses Not on filedocumented in this encounter Care Teams Relationship Associate Relationship Specialty Start Date End Date Meng Conner MD PCP - General 02/03/[address] [place] [address] documented as of this encounter
--- OUTSIDE RECORDS SUMMARY | 2022-05-10 04:12 | XMS_ITS | Clinical Summary ---
:[address] [facility] Address [address] [place] [address] Care Team Providers Name Role Phone Meng Conner MD Primary Care Provider Unavailable Source Comments You are receiving this document as you are listed as the primary care provider,follow-up provider, or the patient has been referred to you for consultation.This is in compliance with the Medicare and Medicaid EHR Incentive Program,which states Providers who transition their patient to another setting of careor provider of care or refers their patient to another provider of care shouldprovide summarycare record for each transition of care or referral. [employer] Allergies No known active allergies Medications Medication Sig Dispensed Refills Start Date End Date Status clindamycin (AKA Take 150 mg by 0 Active CLEOCIN) 150 MG capsule mouth three times a day. unknown medication Indications: PN: 0 08/14/2007 Active HYDROcodone-acetaminoph Take 1 Tablet by 15 Tablet 0 2 Active en (NORCO) 5-325 MG mouth every 6 tablet hours as needed for Pain. Additional Information Patient not taking. Reported on 04/18/2022 indomethacin (INDOCIN) 50 MG Take 1 Capsule (50 mg) 30 Capsule 0 02/25/2022 Active capsule by mouth three times a day with meals. As needed for pain Additional Information Patient not taking. Reported on 04/18/2022 celecoxib (CELEBREX) 200 Take 1 Capsule 60 Capsule 1 2 Active MG capsule (200 mg) by mouth two times daily as needed for Pain. predniSONE (DELTASONE) Take 2 Tablets (40 10 Tablet 0 04/14/20 22 04/21/2022 20 MG tabletIndications: mg) by mouth daily Villonodular synovitis for 3 days, THEN 1 (pigmented), right knee Tablet (20 mg) daily for 4 days. Active Problems Problem Noted Date Altered mental status 07/21/2013 Hypotension 07/21/2013 Hypokalemia 07/21/2013 Drug overdose, intentional 07/21/2013 Schizoaffective disorder 07/20/2013 Ingestion of substance 07/20/2013 Suicide attempt by drug ingestion 07/20/2013 OCD (obsessive compulsive disorder) 07/20/2013 Bipolar 1 disorder, mixed 07/20/2013 Depressive disorder 06/23/2013 Anxiety state 12/27/2011 Combinations of drug dependence excluding opioid type drug, in remission 12/27/2011 Abnormal weight gain 09/23/2007 Encounters Date Type Specialty Care Team Description 05/03/2022 Telephone Orthopedics Derrell Lei MD Knee Pa in or Injury 05/02/2022 Notes/Orders Orthopedics Derrell Lei MD 04/18/2022 Office Visit Orthopedics Derrell Lei MD Chronic pain of right knee (Primary Dx); Effusion of rig ht knee 04/14/2022 Office Visit Sports Medicine Fidencio Yuen Villon odular synovitis DO (pigmented), ri ght knee (Primary Dx) 03/04/2022 Office Visit Sports Medicine Right knee p ain, unspecified chr onicity (Primary Dx) 03/04/2022 Lab Visit Laboratory Hemarthrosis 02/25/2022 Office Visit Sports Medicine Sy Beal Hemart hrosis, right knee (Primary Dx); Marquita Ceballos MD Pain and swelli ng of right knee 02/25/2022 Telephone Sports Medicine Sy Beal Prescr iption Trading Specialist Marquita Ceballos MD from Last 3 Months Social History Tobacco Use Types Packs/Day Years Used Date Smoking Tobacco: Never Smokeless Tobacco: Never Tobacco Cessation: Counseling Given: Not Answered Alcohol Use Standard Drinks/Week Comments No 0 (1 standard drink = 0.6 oz pure alcoho l) Sex Assigned at Date Recorded Not on file Last Filed Vital Signs Vital Sign Reading Time Taken Comments Blood Pressure 119/96 03/11/2015 8:04 PM CDT Pulse 89 03/11/2015 8:04 PM CDT Temperature 36.8 ??C (98.2 ??F) 04/14/2022 7:06 PM COLLECTION CORRESPONDENT Respiratory Rate 16 03/11/2015 8:04 PM CDT Oxygen Saturation 98% 03/11/2015 8:04 PM CDT Inhaled Oxygen Concentration - - Weight 70.3 kg (155 lb) 01/21/2022 6:50 PM CDT Height 172.7 cm (5' 8) 01/21/2022 6:50 PM CDT Body Mass Index 23.57 01/21/2022 6:50 PM CDT Plan of Treatment Upcoming Encounters Date Type Specialty Care Team Description 05/16/2022 Appointment Orthopedics Derrell Lei MD [address] [place], [place] [address] (Wo rk) Health Maintenance Due Date Last Done Comments Hep C Screening (Preventive 1985 Services) HepB (1) 1985 Medicare Welcome Visit 1985 COVID-19 Vaccine (#1) 1985 HIV Screening (Preventive 1999 Services) Cholesterol 2018 Influenza (#1) 2022 03/14/2015, 08/22/2013, 04/11/2007 DTaP/Tdap/Td (3 - Tdap) 02/22/2025 02/22/2015, 02/13/2007 Zoster/Shingles (1 of 2) 2033 Pneumococcal Aged Out 08/22/2013 No longer eligib le based on patient's age to complete this to pic HPV Vaccine Aged Out No longer eligib le based on patient's age to complete this to pic HepA Aged Out No longer eligib le based on patient's age to complete this to pic Hib Aged Out No longer eligib le based on patient's age to complete this to pic IPV (Polio) Aged Out No longer eligib le based on patient's age to complete this to pic MCV4 Aged Out No longer eligib le based on patient's age to complete this to pic Procedures Procedure Name Priority Date/Time Associated Diagnosis Comme nts COMPLETE BLOOD Routine 03/04/2022 3:42 Hemarthrosis Results fo r this COUNT-W/DIFF PM CDT procedure are i n the results section. INR/PROTIME Routine 03/04/2022 3:42 Hemarthrosis Results for this PM CDT procedure are i n the results section. APTT (ACTIVATED Routine 03/04/2022 3:42 Hemarthrosis Results f or this PARTIAL THROMBOPLASTIN PM CDT proce dure are in TIME the results section. URIC ACID Routine 03/04/2022 3:42 Hemarthrosis Results for this PM CDT procedure are i n the results section. RHEUMATOID FACTOR, Routine 03/04/2022 3:42 Hemarthrosis Result s for this QUANT PM CDT procedure are i n the results section. C-REACTIVE PROTEIN Routine 03/04/2022 3:42 Hemarthrosis Result s for this PM CDT procedure are i n the results section. ESR Routine 03/04/2022 3:42 Hemarthrosis Results for this PM CDT procedure are i n the results section. CBC AND DIFFERENTIAL Routine 03/04/2022 3:42 Hemarthrosis [...] procedure are i n the results section. from Last 3 Months Results CCP Antibody (03/04/2022 3:42 PM CDT) [facility] Method Time Signature Anti-CCP Antibody 3 <7 U/mL [facility] 2:20 PM CDT CENTRAL LAB Anti-CCP Antibody Negative Negative 03/06/2022 [facility] ERS Interpretation 2:20 PM CDT CENTRAL LAB Specimen Anatomical Collection Method / Collection Time Recei marysol Time (Source) Location / Volume Laterality Blood Venipuncture / 03/04/2022 3:42 03/04/2022 3:44 Unknown PM CDT PM CDT Narrative [facility]AL [facility] - 03/06/2022 2:20 PM CDT This result was obtained with the Virtuixa 250. Quantitative results cannot be directly compared to other manufacturers' methods . Alonzo García MD LAB_1 Performing Organization Address City/State/ZIP Code Phon e Number [facility] [address] [address] Complete Blood Count-W/Diff (03/04/2022 3:42 PM CDT) P athologist Signature WBC 7.8 3.5 - 10.5 03/04/2022 [place] x10(9)/L 3:47 PM CDT LABORATORY RBC 4.81 4.32 - 03/04/2022 [place] 5.72 3:47 PM CDT LABORATORY x10(12)/L Hemoglobin 14.0 13.5 - 03/04/2022 [place] 17.5 g/dL 3:47 PM CDT LABORATORY HCT 43.2 38.8 - 03/04/2022 [place] 50.0 % 3:47 PM CDT LABORATORY MCV 89.8 80.0 - 03/04/2022 [place] 100.0 fL 3:47 PM CDT LABORATORY MCH 29.1 27.6 - 03/04/2022 [place] 33.3 pg 3:47 PM CDT LABORATORY MCHC 32.4 31.5 - 03/04/2022 [place] 35.2 g/dL 3:47 PM CDT LABORATORY RDW 12.8 11.9 - 03/04/2022 [place] 15.5 % 3:47 PM CDT LABORATORY Platelets 313 150 - 450 03/04/2022 [place] x10(9)/L 3:47 PM CDT LABORATORY Automated NRBC 0 <=0 /100 03/04/2022 [place] WBC 3:47 PM CDT LABORATORY Neutrophil 5.2 1.7 - 7.0 03/04/2022 [place] Absolute 10(9)/L 3:47 PM CDT LABORATORY Lymphocyte 1.5 1.0 - 4.8 03/04/2022 [place] Absolute 10(9)/L 3:47 PM CDT LABORATORY Monocytes 0.6 0.2 - 0.9 03/04/2022 [place] Absolute 10(9)/L 3:47 PM CDT LABORATORY Eosinophil 0.4 0.0 - 0.5 03/04/2022 [place] Absolute 10(9)/L 3:47 PM CDT LABORATORY Basophil 0.1 0.0 - 0.3 03/04/2022 [place] Absolute 10(9)/L 3:47 PM CDT LABORATORY Immature Gran % 0.3 0.0 - 0.5 03/04/2022 [place] % 3:47 PM CDT LABORATORY Specimen Anatomical Collection Method / Collection Time Recei marysol Time (Source) Location / Volume Laterality Blood Venipuncture / 03/04/2022 3:42 03/04/2022 3:44 Unknown PM CDT PM CDT Alonzo García MD LAB_1 Performing Organization Address City/State/ZIP Code Phon e Number [place] [facility] [address] [place] [phone] Basic Metabolic Panel (03/04/2022 3:42 PM CDT) P athologist Signature Sodium 142 136 - 145 03/04/2022 [place] mmol/L 4:12 PM CDT LABORATORY Potassium 4.5 3.5 - 5.1 03/04/2022 [place] mmol/L 4:12 PM CDT LABORATORY Chloride 107 98 - 109 03/04/2022 [place] mmol/L 4:12 PM CDT LABORATORY CO2 26 20 - 29 03/04/2022 [place] mmol/L 4:12 PM CDT LABORATORY Anion Gap 9 7 - 16 03/04/2022 [place] mmol/L 4:12 PM CDT LABORATORY Calcium 9.6 8.4 - 10.4 03/04/2022 [place] mg/dL 4:12 PM CDT LABORATORY BUN 13 7 - 26 03/04/2022 [place] mg/dL 4:12 PM CDT LABORATORY Creatinine 0.90 0.73 - 03/04/2022 [place] 1.18 mg/dL 4:12 PM CDT LABORATORY GFR, Estimated >60 >60 03/04/2022 [place] mL/min/1.7 4:12 PM CDT LABORATORY 3m2 Glucose 94 70 - 100 03/04/2022 [place] mg/dL 4:12 PM CDT LABORATORY Comment: The given reference range is fo r the fasting state. Non-fasting reference range for glucose is 70 - 180 mg/dL. Hours Fasting 19 03/04/2022 4:12 PM CDT [facility] Specimen Anatomical Collection Method / Collection Time Recei marysol Time (Source) Location / Volume Laterality Blood Venipuncture / 03/04/2022 3:42 03/04/2022 3:44 Unknown PM CDT PM CDT Alonzo García MD LAB_1 Performing Organization Address [facility]/ZIP Code Phon e Number [place] [facility] [address] [place] [phone] APTT (Activated Partial Thromboplastin Time) (03/04/2022 3:42 PM CDT) P athologist Signature APTT 30.4 22.5 - 36.5 03/05/2022 [facility] 5:46 PM CDT LABORATORY Specimen Anatomical Collection Method / Collection Time Recei marysol Time (Source) Location / Volume Laterality Blood Venipuncture / 03/04/2022 3:42 03/04/2022 3:44 Unknown PM CDT PM CDT Alonzo García MD LAB_1 Performing Organization Address [facility] Code Phon e Number [facility] [address] [place] [address] Rheumatoid Factor, Quant (03/04/2022 3:42 PM CDT) Analysis Performed At Patho logist Time Signature Rheumatoid <15 <=30 IU/mL 03/04/2022 [facility] Factor, 8:13 PM CDT LABORATORY Quantitative Specimen Anatomical Collection Method / Collection Time Recei marysol Time (Source) Location / Volume Laterality Blood Venipuncture / 03/04/2022 3:42 03/04/2022 3:44 Unknown PM CDT PM CDT Alonzo García MD LAB_1 Performing Organization Address [facility] Phon e Number [facility] [address] [place] [address] (ABNORMAL) C-Reactive Protein (03/04/2022 3:42 PM CDT) P athologist Signature C-Reactive 1.5 (H) 0.0 - 0.7 03/04/2022 [place] Protein mg/dL 4:12 PM CDT LABORATORY Specimen Anatomical Collection Method / Collection Time Recei marysol Time (Source) Location / Volume Laterality Blood Venipuncture / 03/04/2022 3:42 03/04/2022 3:44 Unknown PM CDT PM CDT Alonzo García MD LAB_1 Performing Organization Address [facility]/ZIP Code Phon e Number [facility] [address] [place] [address] (ABNORMAL) MARLINE by IFA with Pattern (03/04/2022 3:42 PM CDT) athologist Signature MARLINE Titer 1:160 (A) <1:80 03/06/2022 [facility] 1:26 PM CDT LABORATORY MARLINE Pattern Speckled 03/06/2022 [facility] 1:26 PM CDT LABORATORY Comment: A positive MARLINE in isolation car dali a low specificity for autoimmune rheumatic disease. A positive MARLINE is fou nd in 3-15% of healthy individuals. If MARLINE is positive consider following up with extr actable nuclear antigens and dsDNA antibody testing. [facility] Interpretation Positive (A) Negative 03/06/2022 1:26 PM [facility] CDT Specimen Anatomical Collection Method / Collection Time Recei marysol Time (Source) Location / Volume Laterality Blood Venipuncture / 03/04/2022 3:42 03/04/2022 3:44 Unknown PM CDT PM CDT Alonzo García MD LAB_1 Performing Organization Address City/[facility]/ZIP Code Phon e Number [facility] [address] [place] [address] Uric Acid (03/04/2022 3:42 PM CDT) athologist Signature Uric Acid 5.9 3.5 - 7.2 03/04/2022 [place] mg/dL 4:12 PM CDT LABORATORY Specimen Anatomical Collection Method / Collection Time Recei marysol Time (Source) Location / Volume Laterality Blood Venipuncture / 03/04/2022 3:42 03/04/2022 3:44 Unknown PM CDT PM CDT Alonzo García MD LAB_1 Performing Organization Address City/[facility]/ZIP Code Phon e Number [facility] [address] [place], [place] [phone] INR/Protime (03/04/2022 3:42 PM CDT) athologist Signature Protime 12.8 11.8 - 14.6 03/04/2022 [place] Seconds 3:57 PM CDT LABORATORY INR 1.0 0.9 - 1.1 03/04/2022 [place] 3:57 PM CDT LABORATORY Specimen Anatomical Collection Method / Collection Time Recei marysol Time (Source) Location / Volume Laterality Blood Venipuncture / 03/04/2022 3:42 03/04/2022 3:44 Unknown PM CDT PM CDT Narrative [facility] [facility] - 03/04/2022 3:57 PM CDT Therapeutic range determined by protocol established by anticoagulation provider. Alonzo García MD LAB_1 Performing Organization Address [facility]/ZIP Code Phon e Number [facility] [address] [place], [place] [phone] ESR (03/04/2022 3:42 PM CDT) [facility] gist Method Time Signature Sedimentation Rate 13 0 - 15 03/04/2022 [place] mm/hr 4:20 PM CDT LABORATORY Specimen Anatomical Collection Method / Collection Time Recei marysol Time (Source) Location / Volume Laterality Blood Venipuncture / 03/04/2022 3:42 03/04/2022 3:44 Unknown PM CDT PM CDT Alonzo García MD LAB_1 Performing Organization Address [facility]/ZIP Code Phon e Number [facility] [address] [place] [address] from Last 3 Months Landon Lerma Personal/Famil Self 1985 [address] (Home) [place] [address] Landon Lerma Personal/Famil Self 1985 [address] (Home) [place] [address] Advance Directives Latest Code Status on File Code Status Date Activated Date Inactivated Comments Full Code 12/28/2014 2:27 AM 12/29/2014 5:03 PM Code Status History Code Status Date Activated Date Inactivated Comments Full Code 07/21/2013 12:29 AM 07/22/2013 2:01 PM Care Teams Hand Straightener Relationship Specialty Start Date End Date Meng Conner MD PCP - General 02/03/[address] [facility], [address]
--- OUTSIDE RECORDS SUMMARY | 2022-05-10 04:12 | XMS_ITS | Encounter Summary ---
:1985 Author Organization [facility] Address [address] [place] [address] Care Team Providers Name Role Phone Meng Conner MD Primary Care Provider Unavailable Reason for Visit Reason Comments MRI Results Encounter Details Date Type Department Care Team Description 01/22/2022 Office Visit Fidencio Jiménez Villon odular synovitis (pigmented), right knee (Primary Dx); Orthopedic Urgent DO Effusion of right knee Care [address] [facility] [id number] [place] [phone] Social History Tobacco Use Types Packs/Day Years Used Date Smoking Tobacco: Unknown Alcohol Use Standard Drinks/Week Comments No 0 (1 standard drink = 0.6 oz pure alcoho l) Sex Assigned at Date Recorded Not on file documented as of this encounter Last Filed Vital Signs Vital Sign Reading Time Taken Comments Blood Pressure - - Pulse - - Temperature 36.2 ??C (97.1 ??F) 01/22/2022 11:04 AM CDT Respiratory Rate - - Oxygen Saturation - - Inhaled Oxygen Concentration - - Weight - - Height - - Body Mass Index - - documented in this encounter Patient Instructions Patient InstructionsSchLee Ann lu ATC - 01/22/2022 11:00 AM CDT Thank you for choosing [facility] for your health care visit today. Fidencio Yuen DO Imaging Cashier And Salesperson[facility] [address] [place] [address]. Call [phone] to schedule. Medication Requests: Prescriptions are filled on Weekdays before 3:00PM For all medication refills: Request a refill using MaxVision[employer] or contact your Pharmacy Paperwork Requests: FMLA or disability paperwork can be faxed to: [phone] Please allow 7-10 business days for completion of all paperwork. [facility] Worker's Compensation Services: E-mail Address: [email or web address] What is Know Your Cost? Know Your Cost is a service for patients and patient/members to call and receive personalized cost information and estimates across our care group. The phone number is (COST) Sunday - Sunday 8 AM to 5 PM To request copies of your medical records, call: [phone] (option 4) Diagnosis: Knee effusion Plan: Medications: Your physician has sent a prescription for Prednisone to your preferred pharmacy. Take this medication as instructed. Please be sure to review all information provided on your prescriptionregarding this drug and any potential side effects you may experience. Ask your pharmacist if any questions arise. Brace/DME: You were provided a Knee sleeve in clinic today. Please use and care according to instructions given today. This item will be billed to your insurance. If insurance does not cover this item,you will be billed for any uncovered amount. You should wear your items as directed in clinic. Referral(s): You are being referred to orthopedics for further care. Our office will help coordinatethat appointment. Will call with a detailed plan. Notes: Return to Work: You were provided a copy of a Return to Work letter today detailing recommendations regarding your ability to work. Please provide copies to your employer. If you have any questions regarding your visit or next steps, please contact us at [phone]. documented in this encounter Progress Notes Fidencio Yuen DO - 01/22/2022 12:00 AM CDT NAME: MISSY LOVE CSN: [id number] CLINIC NOTE DATE OF SERVICE: 01/22/2022 : 1985 CHIEF COMPLAINT: Here for right knee MRI results. HISTORY OF PRESENT ILLNESS: This is a 36-year-old man seen by me yesterday for acute right knee swelling. Please see that note for details. Additionally, he had been seen by a few other physicians at [facility] prior to this and had, had a cortisone injection less than 3 months prior. He says his pain levelat rest now is 2, it is an 8/10 with ambulation. Patient continues to deny any fever, chills, nausea, vomiting, or other signs of systemic illness. PHYSICAL EXAM: GENERAL: Healthy-appearing, nondistressed 36-year-old man, seated comfortably in the exam room. RESPIRATORY: Patient is breathing normally. CARDIOVASCULAR: Patient is well perfused. MSK:Patient has swelling of the right knee with Vicente bandage around it. Antalgic gait, utilizing cane forassisted ambulation. IMAGING: MRI report read by Orestes Rosa MD: 1.New large joint effusion with multiple lobulated areas of intermediate signal intensity throughoutthe joint, which may represent proteinaceous or hemorrhagic debris. Given that this is a new findingfrom the prior MRI from 1 month ago, pigmented villonodular synovitis would not be less likely. Septic arthritis would not be excluded. 2.Subtle blunting and irregularity involving the apical free edge of the midbody of the lateral meniscus on 1 image only, is equivocal for small area of fraying. The meniscus is otherwise intact. 3.No change in 3 mm OCD body posterior aspect of the lateral compartment. 4.Previously seen chondral flap tear in the central trochlea inferiorly is not definitely identifiedon today's exam. 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 PLAN: I did go over the MRI report and the images with Missy and talked about treatment from here. He is fitted with a knee sleeve per his request. He is given a work note to reduce standing and walking at work. He is referred to Dr. García for further evaluation. I appreciate his care of this patient. Additionally, a prescription of prednisone is given to potentially reduce swelling within the knee. He is in agreement with the plan. DO NOLVIA MORAN/AQS /[id number] documented in this encounter Plan of Treatment Upcoming Encounters Date Type Specialty Care Team Description 05/16/2022 Appointment Orthopedics Derrell Lei MD [address] [place], [place] [address] (Wo rk) documented as of this encounter Visit Diagnoses Diagnosis Villonodular synovitis (pigmented), righ t knee - Primary Effusion of right knee Effusion of lower leg joint documented in this encounter Care Teams Reinsurance Accountant Relationship Specialty Start Date End Date Meng Conner MD PCP - General 02/03/[address] [facility], [address] documented as of this encounter
--- OUTSIDE RECORDS SUMMARY | 2022-05-10 04:12 | XMS_ITS | Encounter Summary ---
:1985 Author Organization [facility] Address [address] [place] [address] Care Team Providers Name Role Phone Meng Conner MD Primary Care Provider Unavailable Encounter Details Date Type Department Care Team Description 05/02/2022 Notes/Orders [facility] ORTHOPAEDIC Derrell May MD [place] [address] [place] [address] [place], [place] [phone] Social History Tobacco Use Types Packs/Day Years Used Date Smoking Tobacco: Never Smokeless Tobacco: Never Alcohol Use Standard Drinks/Week Comments No 0 (1 standard drink = 0.6 oz pure alcoho l) Sex Assigned at Date Recorded Not on file documented as of this encounter Plan of Treatment Upcoming Encounters Date Type Specialty Care Team Description 05/16/2022 Appointment Orthopedics Derrell Lei MD [address] [place], [place] [address] (Wo rk) documented as of this encounter Visit Diagnoses Not on filedocumented in this encounter Care Teams Bus Company Manager Relationship Specialty Start Date End Date Meng Conner MD PCP - General 02/03/[address] [place], [address] documented as of this encounter
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
--- OUTSIDE RECORDS SUMMARY | 2022-05-10 04:12 | XMS_ITS | Encounter Summary ---
:1985 Author Organization [facility] Address [address], [place] [address] Care Team Providers Name Role Phone Meng Conner MD Primary Care Provider Unavailable Reason for Visit Reason Comments KNEE PAIN Right knee effusion Encounter Details Date Type Department Care Team Description 01/25/[address] [facility] Alonzo Plunkett, Acute pain of right knee (Primary Dx); Orthopaedics & Sports Hemarthrosis Medicine [address] [place] [address] [place] [phone] Social History Tobacco Use Types Packs/Day Years Used Date Smoking Tobacco: Unknown Alcohol Use Standard Drinks/Week Comments No 0 (1 standard drink = 0.6 oz pure alcoho l) Sex Assigned at Date Recorded Not on file documented as of this encounter Progress Notes Alonzo Mcfadden MD - 01/25/2022 3:40 PM CDT Addended by: ALONZO MCFADDEN on: 01/26/2022 09:29 AM Modules accepted: Orders Alonzo Mcfadden MD - 01/25/2022 12:00 AM CDT NAME: MISSY LOVE CSN: [id number] CLINIC NOTE DATE OF SERVICE: 01/25/2022 : 1985 ID: A 36-year-old male, who presents today for a 5-day history of knee swelling and pain. HPI: Missy Love is a pleasant 36-year-old male, who presents today for evaluation of his right knee. The patient states that he was initially having some anterior knee pain and underwent an injection on December 16, 2021. He states this did not provide significant relief. He was using a knee brace while at work. On January 20 after a long day at work, he developed significant swelling and pain in his knee. He had a difficult time bearing weight. He initially presented to the [facility], where they obtained x-rays and sent him home. He then later presented to the [facility]. They attempted an aspiration, but only obtained a small amount of blood. He had an MRI performed concerning for possible PVNS or other inflammatory disease. He was subsequently referred here urgently. The patient states that he has significant pain in his knee. He is unable to bear weight without discomfort and utilizing multiple braces. His pain is localized deep in the joint in the back of the knee. He denies any specific injury that occurred while at work or recently. He denies anyfevers or chills. No systemic illnesses, no history of inflammatory conditions, no rashes, no exposure to ticks. PAST MEDICAL HISTORY, PAST SURGICAL HISTORY, MEDICATIONS, ALLERGIES, FAMILY HISTORY, SOCIAL HISTORY,REVIEW OF SYSTEMS: Documented with the patient today in the new patient questionnaire. The patient has a history of a retrograde femoral mylene for a femur fracture in 2014. No problems with infection during that procedure. History of substance abuse. EXAM: The patient is alert, oriented, in no acute distress. He has nonlabored breathing at rest. On examination of the patient's right knee, he has a large effusion. It is mildly warm, but there is no erythema. He has 2+ medial and lateral patellar glide with a negative patellar grind test. He has generalized tenderness to palpation along the medial and lateral joint lines with no localizing tenderness. Range of motion from 10 degrees to 90 degrees. IMAGING: Previous x-rays and MRI scan were reviewed today with the patient. He has a well-seated retrograde femoral nail, no acute fracture. MRI scan demonstrates a new large joint effusion with hemorrhagic debris. No evidence of clear pigmented villonodular synovitis. The remaining ligaments and menisci appear intact. ASSESSMENT: A 36-year-old male with acute right knee swelling and pain, including difficulty bearingweight. Concern for traumatic hemarthrosis without clear etiology as opposed to septic arthritis. PLAN: I discussed with the patient his above diagnosis and treatment options. I have recommended we first find a diagnosis for his knee. I have recommended a repeat attempted aspiration as well as laboratory tests to better determine the source of his swelling. Based on these lab results, we will further direct care. I have written him a work note to remain off work for the next 7 days while we are evaluating this. He will continue to use Vicente wraps or knee sleeves as needed to help with swelling andpain. ASPIRATION: After verbal consent was obtained, the patient's right knee was sterilely prepped with alcohol and chlorhexidine. I first injected 3 mL of 1% lidocaine into the subcutaneous tissues over the superolateral knee. I then introduced an 18-gauge needle and was able to withdraw 8 mL of bloody fluid. This was sterilely capped and sent to the lab. The patient tolerated the procedure well. The injection site was covered with a Band-Aid. Greater than 30 minutes was spent on this visit including non [id number] time. ALONZO MCFADDEN MD ADDENDUM: Aspirate results reviewed, bloody tap, no acute concern for infection. Pt did not go to lab yesterday, but will today. Will call if concerns based on labs, otherwise will treat as traumatic hemarthrosis with rest, ice, elevation, and compression wraps. QUINTIN/VALENTINA /[id number] cc: CHERELLE DEMPSEY, [address] [address] [place] [address] documented in this encounter Plan of Treatment Upcoming Encounters Date Type Specialty Care Team Description 05/16/2022 Appointment Orthopedics Derrell Lei MD [address] [place] [phone] (Wo rk) documented as of this encounter Procedures Procedure Name Priority Date/Time Associated Comments Diagnosis BODY FLUID CELL COUNT Routine 01/25/2022 4:25 PM Acute pain of right Results for this AND DIFFERENTIAL CDT knee procedure a re in the results section. BODY FLUID, Routine 01/25/2022 4:25 PM Acute pain of right Re sults for this DIFFERENTIAL CDT knee procedure are i n the results section. AEROBIC CULTURE Routine 01/25/2022 4:25 PM Acute pain of right Results for this EXTENDED INCUBATION CDT knee procedur e are in 14 DAYS the results section. CRYSTALS,SYNOVIAL Routine 01/25/2022 4:25 PM Acute pain of rig ht Results for this CDT knee procedure are i n the results section. CELL COUNT & DIFF, Routine 01/25/2022 4:25 PM Acute pain of ri ght Results for this BODY FLUID CDT knee procedure are i n the results section. documented in this encounter Results Body Fluid, Differential (01/25/2022 4:25 PM CDT) athologist Signature Body Fluid 65 % 01/25/2022 [facility] Neutrophils % 10:49 PM CDT LABORATORY Body Fluid 12 % 01/25/2022 [facility] Lymphocytes % 10:49 PM CDT LABORATORY Body Fluid 21 % 01/25/2022 [facility] Mononuclear 10:49 PM CDT LABORATORY Cells % Body Fluid 2 % 01/25/2022 [facility] Eosinophils % 10:49 PM CDT LABORATORY TOTAL CELLS 100 01/25/2022 [facility] COUNTED IN BODY 10:49 PM CDT LABORATORY FLUID Specimen Anatomical Collection Method Collection Time Receive d Time (Source) Location / / Volume Laterality Synovial Fluid ENTIRE KNEE REGION 01/25/2022 4:25 PM 0 01/25/2022 5:19 / Unknown CDT PM CDT Alonzo Mcfadden MD LAB_1 Performing Organization Address City/State/ZIP Code Phon e Number [facility] [address] [place] [address] (ABNORMAL) Cell Count, Body Fluid (01/25/2022 4:25 PM CDT) [facility] gist Method Time Signature Body Fluid Synovial 01/25/2022 [facility] Type Fluid 10:49 PM CDT LABORATORY BF Source Knee, right 01/25/2022 [facility] 10:49 PM CDT LABORATORY Body Fluid Bloody (A) Clear 01/25/2022 [facility] Appearance 10:49 PM CDT LABORATORY Body Fluid RBC 6,075,000 /uL 01/25/2022 [facility] 10:49 PM CDT LABORATORY Comment: The reference interval is unava ilable for this body fluid. Comparison of the result with concentration in the blood i s recommended. Body Fluid WBC 3,775 (H) 0 - 200 /ul 01/25/2022 10:49 PM CDT [facility] Specimen Anatomical Collection Method Collection Time Receive d Time (Source) Location / / Volume Laterality Synovial Fluid ENTIRE KNEE REGION 01/25/2022 4:25 PM 0 01/25/2022 5:19 / Unknown CDT PM CDT Alonzo Mcfadden MD LAB_1 Performing Organization Address City/[facility] Phon e Number [facility] [address] [place] [address] Crystals,Synovial (01/25/2022 4:25 PM CDT) [facility] Method Time Signature Synovial Knee, right 01/25/2022 [facility] Source 11:56 PM LABORATORY CDT Crystals, No Crystals No Crystals 01/25/2022 [facility] Synovial Seen Seen 11:56 PM LABORATORY CDT Specimen Anatomical Collection Method Collection Time Receive d Time (Source) Location / / Volume Laterality Synovial Fluid ENTIRE KNEE REGION 01/25/2022 4:25 PM 0 01/25/2022 5:19 / Unknown CDT PM CDT Alonzo Mcfadden MD LAB_1 Performing Organization Address [facility] Phon e Number [facility] [address] [place] [address] Aerobic Culture Extended Incubation 14 Days (01/25/2022 4:25 PM CDT) [facility] Method Time Signature Aerobic No Growth 02/08/2022 [facility] Culture 7:51 AM CDT HOSPITAL Extended Incubation Gram Smear No PMN's 02/08/2022 [facility] Present 7:51 AM CDT HOSPITAL Gram Smear No Organisms 02/08/2022 [facility] Seen 7:51 AM CDT HOSPITAL Specimen Anatomical Collection Method Collection Time Receive d Time (Source) Location / / Volume Laterality Aspirate ENTIRE KNEE REGION Non-blood 01/25/2022 4:25 PM 5:19 / Unknown Collection / CDT PM CDT Unknown Alonzo Mcfadden MD LAB_1 Performing Organization Address City/State/ZIP Code Phon e Number [address] [address] documented in this encounter Visit Diagnoses Diagnosis Acute pain of right knee - Primary Hemarthrosis Hemarthrosis, site unspecified documented in this encounter Care Teams Cobbler Upper Relationship Specialty Start Date End Date Meng Conner MD PCP - General 02/03/[address] [place], [address] documented as of this encounter
--- OUTSIDE RECORDS SUMMARY | 2022-05-10 04:12 | XMS_ITS | Encounter Summary ---
:1985 Author Organization [facility] Address [address], [place] [address] Care Team Providers Name Role Phone Meng Conner MD Primary Care Provider Unavailable Reason for Visit Reason Comments Knee Pain or Injury BRENDA:Right Knee pain and swel ling began this morning with no known injury Encounter Details Date Type Department Care Team Description 01/21/2022 Office Visit Fidencio Jiménez Effusi on of right Orthopedic Urgent DO knee (Primary Dx) Care [address] [address] [place] [address] [phone] Social History Tobacco Use Types Packs/Day Years Used Date Smoking Tobacco: Unknown Alcohol Use Standard Drinks/Week Comments No 0 (1 standard drink = 0.6 oz pure alcoho l) Sex Assigned at Date Recorded Not on file documented as of this encounter Last Filed Vital Signs Vital Sign Reading Time Taken Comments Blood Pressure - - Pulse - - Temperature 36.7 ??C (98 ??F) 01/21/2022 6:50 PM CDT Respiratory Rate - - Oxygen Saturation - - Inhaled Oxygen Concentration - - Weight 70.3 kg (155 lb) 01/21/2022 6:50 PM CDT Height 172.7 cm (5' 8) 01/21/2022 6:50 PM CDT Body Mass Index 23.57 01/21/2022 6:50 PM CDT documented in this encounter Patient Instructions Patient InstructionsSchLee Ann lu ATC - 01/21/2022 6:30 PM CDT Thank you for choosing [facility] for your health care visit today. Fidencio Yuen DO Imaging Meat Butcher: [place] [address]. Call [phone] to schedule. Medication Requests: Prescriptions are filled on Weekdays before 3:00PM For all medication refills: Request a refill using MyChart or contact your Pharmacy Paperwork Requests: FMLA or disability paperwork can be faxed to: [phone] Please allow 7-10 business days for completion of all paperwork. [facility] Worker's Compensation Services: E-mail Address: [email or web address] What is Know Your Cost? Know Your Cost is a service for patients and patient/members to call and receive personalized cost information and estimates across our care group. The phone number is (COST) Sunday - Sunday 8 AM to 5 PM To request copies of your medical records, call: [phone] (option 4) Diagnosis: R knee effusion Plan: Follow Up: After MRI results. You may walk-in after your MRI scan, or schedule an appointment for follow-up. Medications: Use pain meds from [facility] Injection(s): The right knee was aspirated and injected with Kenalog-40 and lidocaine. Brace/DME: You were provided a VICENTE wrap and crutches in clinic today. Please use and care according to instructions given today. This item will be billed to your insurance. If insurance does not cover this item, you will be billed for any uncovered amount. You should wear your items as directed in clinic. Imaging: You will be scheduled for an MRI of your right knee. - Return to clinic immediately following your imaging exam to obtain results. Reports are generally read within 60 minutes of exam completion. If you have any questions regarding your visit or next steps, please contact us at [phone]. documented in this encounter Progress Notes Fidencio Yuen DO - 01/21/2022 12:00 AM CDT NAME: MISSY LOVE [facility]: [id number] CLINIC NOTE DATE OF SERVICE: 01/21/2022 : 1985 CHIEF COMPLAINT: Right knee swelling and pain. DATE OF INJURY: Non-injurious, started January 20, yesterday. HPI: This is a 36-year-old man complaining of painful, swollen right knee with no known injury. He has a history of right knee cortisone injection done by Dr. Hargrove in mid December. He had been seen a few times in [facility] prior to that and that was an MRI visit. He says he never had any swelling of the knee during that time. This is new to him. He says it hurts to weightbear, but he does not know of any injury that occurred. He works at [employer] in [place] and lives in [place]. Pain level 9/10. 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 He said an x-ray was taken. He was given [place] for pain relief. He was also given indomethacin. He says no laboratory work was done at that point and he came here because he did not feel he got anything treated at the hospital. He was told there was no fracture on the x-ray. The patient denies any history of fever, chills, sick contacts, nausea, or vomiting. He also denies family history of rheumatoid arthritis or gout or personal history of those. PHYSICAL EXAM: VITAL SIGNS: Patient's height 68 inches, weight 155 pounds, temp 98 degrees Fahrenheit. GENERAL: This is an overall healthy-appearing, pleasant 36-year-old man, who is nondistressed. PSYCH: Normal affect. CARDIOVASCULAR: Pulses are normal in the lower extremities. NEURO: Sensation preserved in the right leg. RHEUM: No deformities suggesting autoimmune disease. RESPIRATORY: Patient is breathing normally. SKIN: No ecchymosis or lesions or erythema on the knee. MSK: Exam of the right knee reveals a large ballotable suprapatellar effusion. Extension and flexion are intact, but limited bypain and swelling. Weightbearing is painful. His gait is antalgic. IMAGING: I reviewed MRI report from initial visit. DVD from [place] of x-rays malfunctioned today. ASSESSMENT: Large right knee effusion, hemarthrosis. PLAN: I talked to Srikanth about options today and we agree on an aspiration and potential injection. The procedure note is below. Only 2 mL of grossly bloody fluid were able to be aspirated and then there was some additional bloody seepage after that. Area was bandaged and an MRI is ordered. He plans to do the MRI tomorrow and will follow up for results. Suspect ligament tear, meniscal tear, or occultfracture. PROCEDURE NOTE: Right knee aspiration: Patient is in supine position and the right knee is marked for superior lateral aspiration. The area is cleansed sterilely with chlorhexidine. Then, approximately2 mL of 1% lidocaine were injected in the subcutaneous tissue for local anesthesia. Waiting one minute, then an 18-gauge needle is inserted into the knee and immediately 2 mL of grossly bloody fluid are aspirated. Needle is redirected three times and no additional fluid is aspirated. So, using steriletechnique, the syringe was swapped out for the one containing an additional 2 to 3 mL of 1% lidocaine and that is injected into the suprapatellar space for pain relief. Needle withdrawn. The area is bandaged and Vicente wrapped and patient is discharged home. DO MARITZA MORANH/AQGeovanna /[id number] documented in this encounter Plan of Treatment Upcoming Encounters Date Type Specialty Care Team Description 05/16/2022 Appointment Orthopedics Derrell Lei MD [address] [place] [phone] (Wo rk) documented as of this encounter Visit Diagnoses Diagnosis Effusion of right knee - Primary Effusion of lower leg joint documented in this encounter Care Teams Historic Sites Supervisor Relationship Specialty Start Date End Date Meng Conner MD PCP - General 02/03/[address] [facility], [address] documented as of this encounter
--- OUTSIDE RECORDS SUMMARY | 2022-05-10 04:12 | XMS_ITS | Encounter Summary ---
:1985 Author Organization [facility] Address [address] [place] [address] Care Team Providers Name Role Phone Meng Conner MD Primary Care Provider Unavailable Reason for Referral Procedure/Equipment (Routine) - Incomplete Specialty Diagnoses / Procedures Referred By Contact Refer red To Contact Diagnoses Right knee pain, unspecified chronicity Right knee injury, sequela Jayshree Brunner MD Procedures MR Knee Rt WO IV Cont W Metal Suppression [address] [facility] [address] [place] [address] Referral ID Status Reason Start Date Expiration Date Visits V isits Requested Authorized [id number] Incomplete 12/13/2021 03/14/2023 1 1 Reason for Visit Reason Comments Follow-up Right knee pain Encounter Details Date Type Department Care Team Description 12/13/2021 Office Visit [facility] Jayshree Brunner, Right k nee injury, sequela (Primary Dx); Urgent Care Right knee pain, unspecified chronicity [address] [facility] [address] [place] [phone] (Wo rk) Social History Tobacco Use Types Packs/Day Years Used Date Smoking Tobacco: Unknown Alcohol Use Standard Drinks/Week Comments No 0 (1 standard drink = 0.6 oz pure alcoho l) Sex Assigned at Date Recorded Not on file documented as of this encounter Last Filed Vital Signs Vital Sign Reading Time Taken Comments Blood Pressure - - Pulse - - Temperature 36.6 ??C (97.8 ??F) 12/13/2021 2:29 PM CDT Respiratory Rate - - Oxygen Saturation - - Inhaled Oxygen Concentration - - Weight - - Height - - Body Mass Index - - documented in this encounter Patient Instructions Patient InstructionsTToby rivera ATC - 12/13/2021 3:[address] Jayshree Brunner MD Sports & Orthopaedic Medicine Orthopedic Ur[facility], [place] [facility] Nurse Line: [phone] Please contact Orthopedic Urgent Care line for all requests and questions. Medication Requests: Prescriptions are not filled on Weekends or on Weekdays after 3:00PM For all medication refills: Request a refill using MyChart or contact your Pharmacy To schedule appointments: [phone] Paperwork Requests: FMLA or disability paperwork can be faxed to: [phone] Medical records: [phone] (option 4) [facility] Worker's Compensation Services E-mail Address: [email or web address] MRI Follow up here in [facility] for results about 1 hour after test documented in this encounter Progress Notes Jayshree Brunner MD - 12/13/2021 12:00 AM CDT NAME: MISSY LOVE CSN: [id number] CLINIC NOTE DATE OF SERVICE: 12/13/2021 : 1985 SUBJECTIVE: This is a 36-year-old male, who returns to [facility] for his right knee. He was last seen at [facility] in [place] on 11/13/2021. Please refer to the note from that date for further history and exam findings. He has had persistent pain and limited motion and feelings of giving way in the right knee. X-rays were obtained at his last visit and an MRI was discussed. He is hoping to get his MRI done today and discuss a cortisone injection. He has to work tomorrow and cannot miss any work. He has had previous intramedullary mylene placement of the femur and it was suggested that he see his orthopedic trauma specialist, but the patient brings himself in through the Ortho Urgent Care here at [facility] instead. I had a brief discussion with the patient. As he has had ongoing pain in the right knee with mechanical symptoms concerning for a meniscal tear or chondral injury, I would like him to get a right knee MRI. He will return after the study to review results and discuss his options. I would consider an intra-articular cortisone injection versus followup with one of our knee specialist given his history depending on the MRI results. This is a documentation visit only. JAYSHREE BRUNNER MD SDW/AQS /[id number] documented in this encounter Plan of Treatment Upcoming Encounters Date Type Specialty Care Team Description 05/16/2022 Appointment Orthopedics Derrell Lei MD [address] [place], [place] [address] (Wo rk) documented as of this encounter Results MR Knee Rt WO [...] was performed without contrast. COMPARISON: ??Radiographs dated 2 FINDINGS: MEDIAL COMPARTMENT: ??There are no focal [...] evidence of a meniscal or ligament tear. Jayshree Brunner MD RAD MRI documented in this encounter Visit Diagnoses Diagnosis Right knee injury, sequela - Primary Right knee pain, unspecified chronicity Right knee pain, unspecified chronicity Right knee injury, sequela documented in this encounter Care Teams Occupancy Specialist Relationship Specialty Start Date End Date Meng Conner MD PCP - General 02/03/[address] [facility], [address] documented as of this encounter
--- OUTSIDE RECORDS SUMMARY | 2022-05-10 04:12 | XMS_ITS | Encounter Summary ---
:1985 Author Organization [facility] Address [address] [place] [address] Care Team Providers Name Role Phone Meng Conner MD Primary Care Provider Unavailable Reason for Referral Therapies (Routine) - New Request Specialty Diagnoses / Procedures Referred By Contact Refer red To Contact Physical Therapy Diagnoses Chondromalacia of patellofemoral joint, right Isiah Hargrove DO [facility] Physical [address] [facility] [place] [address] [facility] [address] [address] Phone: Fax: Referral ID Status Reason Start Date Expiration Date Visits V isits Requested Authorized [id number] New Request 12/16/2021 12/16/2022 999 999 Scheduling Instructions Your provider has recommended an appoint ment with [facility]. You can quickly make your appointment online at [employer]/schedule. You can also call [phone] for help scheduling yo ur appointment. We suggest you call your health insurance company about your cove rage and benefits for this appointment. Reason for Visit Reason Comments MRI Results knee Encounter Details Date Type Department Care Team Description 12/16/2021 Office Visit [facility] Orthopedic Isiah Hargrove, Chondro malacia of Urgent Care DO patellofemoral joint, [address] [facility] right (Primary Dx) [place], [place] [address] [facility] [place] [phone] [address] Social History Tobacco Use Types Packs/Day Years Used Date Smoking Tobacco: Unknown Alcohol Use Standard Drinks/Week Comments No 0 (1 standard drink = 0.6 oz pure alcoho l) Sex Assigned at Date Recorded Not on file documented as of this encounter Last Filed Vital Signs Vital Sign Reading Time Taken Comments Blood Pressure - - Pulse - - Temperature 35.8 ??C (96.4 ??F) 12/16/2021 9:18 AM CDT Respiratory Rate - - Oxygen Saturation - - Inhaled Oxygen Concentration - - Weight - - Height - - Body Mass Index - - documented in this encounter Patient Instructions Patient InstructionsThClara osullivan, ATC - 12/16/2021 9:[address] Debbie Hargrove, DO Sports & Orthopaedic Medicine Orthopedic Urgent [facility], [place] [facility] Nurse Line: [phone] Please contact Orthopedic Urgent Care line for all requests and questions. Medication Requests: Prescriptions are not filled on Weekends or on Weekdays after 3:00PM For all medication refills: Request a refill using InstaEDUhart or contact your Pharmacy To schedule appointments: [phone] Paperwork Requests: FMLA or disability paperwork can be faxed to: [phone] Medical records: [phone] (option 4) [facility] Worker's Compensation Services E-mail Address: [email or web address] Diagnosis: Right knee patellofemoral chondromalacia Plan: - Physical therapy to schedule - Follow up as needed - The right knee was injected with Kenalog-40 and lidocaine. Avoid Strenuous Activity for the remainder of the day and avoid activities that cause pain for one to two weeks following the injection. Signs and Symptoms to watch for: If you have any redness, warmth or increasing pain at the site of the injection or develop a fever, please call [phone] - You've just had a steroid (cortisone) injection: Steroid injections are among the most frequently used treatments in orthopedics. Steroid injections are used for a wide range of conditions from arthritis, to bursitis, to tennis elbow, etc. The two most common side-effects of steroid shots called ???steroid flare??? and ???steroid flush. Steroid flare can cause an increase in symptoms in the first 24-48 hours after a steroid injection. This will usually subside within a few days, and is a cause from the additional fluid in your joint, and the trauma to the joint lining from the injection. This pain usually subsides quickly and can be aided with an ice pack and over the counter anti-inflammatory medication. Steroid flush is a flushing sensation and redness of their face. This reaction is more common in women, but can occur in men as well, and is seen into up to 15 percent of patients. This can begin within a few hours of the injection and may last for a few days. It is not dangerous, and will resolve itself. Diabetic patients also can have their blood sugar levels affected. Patients with diabetes should carefully monitor their blood sugar as steroid can cause a temporary rise in their levels. Patients taking insulin should be especially careful, checking their blood sugar often and adjusting the insulin doses, if necessary. Steroid injections can only be repeated every 3 or 4 months. For some conditions there may also be alimited total number of times it is safe to repeat an injection. RISKS: Infection Whenever there is a break in the skin, like when a needle is used to administer steroid, there is a chance of infection this is very unlikely to happen, usually would occur days after the injection. Signs and symptoms to watch for: fever, streaking redness, pus, drainage, foul odor, localized redness that continues to get worse, come to the office if symptoms are recognized during business hours, or proceed to the emergency room if symptoms are recognized after office hours. Skin Pigment Changes Patients should also be aware that steroid may cause skin around the injection site to lighten. Thisis not harmful or long lasting. Loss of Fatty Tissue This is one reason we limit the number of steroid injections administered. High doses of steroid canhave detrimental effects on some tissues in the body, though due to the dosage we use the risk is extremely rare. When injected into fatty tissue, steroid can lead to a problem called fat atrophy. Fat atrophy causes loss of fatty tissue, which can lead to dimpling of the skin or the thinning out of fat. Skin will feel thin. Patients who get steroid injections in the heel to treat plantar fasciitis may find walking painful as fat that usually cushions their steps may thin out. Tendon Rupture Steroid can also cause weakening of tendons. This is one reason to limit the number of steroid injections administered. documented in this encounter Progress Notes Isiah Hargrove, - 12/16/2021 12:00 AM CDT NAME: MISSY LOVE CSN: [id number] CLINIC NOTE DATE OF SERVICE: 12/16/2021 : 1985 HPI: This is a 36-year-old male, who presents for followup regarding a recent MRI. He was last seen by my colleague, Dr. Demarcus Brunner, regarding some ongoing right knee discomfort. He has a history ofa femur fracture and an intramedullary mylene placed back in 2014. He has had some ongoing issues involving his right knee. Given his ongoing discomfort, an MRI of his right knee was ordered. He presents today to discuss his results. MRI report of his right knee is as follows: 1. Mild chondromalacia of the trochlear groove. 2. 3 mm intra-articular body at the posterior aspect of the lateral compartment. 3. No evidence of a meniscal or ligament tear. ASSESSMENT: Right knee patellofemoral chondromalacia. PLAN: We discussed his current findings. We discussed his MRI which shows no evidence of ligament ormeniscal injury and reassurance is provided. He does have some mild chondromalacia to the patellofemoral joint, likely bringing on his anterior knee discomfort with full extension. I did recommend a Physical Therapy referral, and he plans to schedule this in the near future. He was also provided a [employer] knee brace upon patient request. I offered a corticosteroid injection in clinic and he is in favor of this. Risks and benefits were discussed and the patient elected to proceed. Using an aseptic technique, the patient was placed in a seated position. Using an anterolateral approach, he was injected to his right knee using 4 mL of 1% plain lidocaine and 1 mL of 40 mg triamcinolone. He tolerated this well and no immediate complications were noted. He will closely monitor his symptoms over the next few weeks, and he will follow up in our clinic if he is not improving with his course of physical therapy. DO VESTA TEIXEIRA/VALENTINA /[id number] documented in this encounter Plan of Treatment Upcoming Encounters Date Type Specialty Care Team Description 05/16/2022 Appointment Orthopedics Derrell Lei MD [address] [place], [place] [address] (Wo rk) Scheduled Referrals Name Type Priority Associated Diagnoses Order S chedule Physical Therapy Referral Routine Chondromalacia of Ordere d: 12/16/2021 patellofemoral joint, right documented as of this encounter Visit Diagnoses Diagnosis Chondromalacia of patellofemoral joint, right - Primary documented in this encounter Care Teams Admissions Clerk Relationship Specialty Start Date End Date Meng Conner MD PCP - General 02/03/[address] [facility], [address] documented as of this encounter
--- OUTSIDE RECORDS SUMMARY | 2022-05-10 04:13 | XMS_ITS | Encounter Summary ---
:1985 Author Organization [facility]ly [facility] Address [address] [place] [address] Care Team Providers Name Role Phone Unassigned, Provider Primary Care Provider Unavailable Encounter Details Date Type Department Care Team Description 03/01/2003 Office Visit MIANO DIAZ DEFAULT Unassigned, MALAISE AND FATIGUE (OTHER); Provider UNSPECIFIED VIRAL INFECTION [address] [place] [address] Social History Tobacco Use Types Packs/Day Years Used Date Smoking Tobacco: Never Assessed Sex Assigned at Date Recorded Not on file documented as of this encounter ED Notes Chris Bermudez - 03/01/2003 12:00 AM CDTLog Number: [id number] CHIEF COMPLAINT: Weakness. HISTORY OF PRESENT ILLNESS: This is a 18-year-old male with no significant past medical history who reports to the [facility] Emergency Department complaining of weakness. The patient tells me that this all started approximately a week and a half ago. He tells me at that time he started out with rhinorrhea, cough and a sore throat. This continued through approximately a vyqx-miv-q-half duration. He says sometimes he feels better in the morning and sometimes he feels worse. He tells me he is occasionally nauseated and has had 2 to 3 episodes of vomiting within the past week and a half. He also tells me that he has had an episode of diarrhea approximately 3 days ago. He denies any fevers or chills. He denies any sick contacts at home. He is a bwbl-i-nlqg-a-day smoker. PAST MEDICAL HISTORY: None. MEDICATIONS: None. ALLERGIES: NO KNOWN DRUG ALLERGIES. REVIEW OF SYSTEMS/SOCIAL HISTORY/FAMILY HISTORY: Please see emergency department shingle. PHYSICAL EXAMINATION: Vital signs: Blood purse 118/61, pulse 94, respiratory rate 18, temperature 99.0 and O2 sats 98%. General: Patient's alert, oriented x 4 and in no apparent distress. HEENT: Pupils equal, round and reactive to light. Extraocular muscles intact. Oropharynx is clear. Tympanic membranes are translucent. Scalp is atraumatic. Neck: Supple and nontender with no anterior adenopathy to palpation. No cervical spine tenderness to palpation. Cardiovascular: Rate and rhythm regular. No murmurs, rubs or gallops. Pulmonary: Lung alford clear bilateral to auscultation. Abdomen: Patient nontender and nondistended with no organomegaly to palpation. Positive bowel sounds. Neurologic: Cranial nerves II through XII are intact. He displays 5/5 upper and lower extremity strength. EMERGENCY DEPARTMENT COURSE: This patient remained afebrile with stable vital signs while here in the emergency department. Upon completion of the history and physical exam, we did not feel it was appropriate to initiate a workup. I have no findings to suggest that this patient is acutely infected. It does appear that he has had an ongoing viral illness and is having some systemic effects from that pathology. I am suggesting that he orally hydrate aggressively with juices, Gatorade and water. He should also take Tylenol as needed. If he develops any increased fevers, chills, nausea or vomiting, he should return to the emergency department. Otherwise, I will give him a number to primary care with which he can follow up. FINAL IMPRESSION 1. Weakness, not otherwise specified. 2. Viral illness. DISPOSITION: Patient will be discharged home in stable condition. tdm Dictated: 03/01/2003 01:57:05 Chris Bermudez MD Transcribed: 03/02/2003 04:31:47 Staff: Zelda Ibrahim MD Doc #: [id number] Page 2 Patient Name: MISSY LOVE Visit Date: 03/01/2003 EMERGENCY MEDICINE NOTE CONFIDENTIAL MEDICAL RECORD [address] [id number] Page 1 Patient: MISSY LOVE Location: [facility] HPN: Date of : 1985 Visit Date: 03/01/2003 EMERGENCY MEDICINE NOTE documented in this encounter Plan of Treatment Upcoming Encounters Date Type Specialty Care Team Description 05/16/2022 Appointment Orthopedics Derrell Lei MD [address] [phone] (Wo rk) documented as of this encounter Visit Diagnoses Diagnosis Other malaise and fatigue Unspecified viral infection, in conditio ns classified elsewhere and of unspecified site documented in this encounter Care Teams Commercial Credit Lead Relationship Specialty Start Date End Date Unassigned, Provider PCP - General 04/23/01 12/19/10 [address] [place] [address] documented as of this encounter
--- OUTSIDE RECORDS SUMMARY | 2022-05-10 04:13 | XMS_ITS | Encounter Summary ---
:1985 Author Organization [facility] Address [address] [place] [address] Care Team Providers Name Role Phone Meng Conner MD Primary Care Provider Unavailable Reason for Visit Procedure/Equipment (Routine) - Incomplete Specialty Diagnoses / Procedures Referred By Contact Refer red To Contact Diagnoses Right knee pain, unspecified chronicity Franco Juares MD Procedures XR Knee Lt 1-2 Views Comparison [address] [facility] [address] [place] [address] Referral ID Status Reason Start Date Expiration Date Visits V isits Requested Authorized [id number] Incomplete 11/13/2021 02/12/2023 1 1 Encounter Details Date Type Department Care Team Description 11/13/2021 [facility] Franco Gamboa Right kn ee pain, Procedure Specialty Center - MD Geovanna unspecified Radiology [address] [facility] chronicity [address] [place] [address] [phone] Social History Tobacco Use Types Packs/Day Years [...] Name Priority Date/Time Associated Diagnosis Comme nts XR KNEE LT 1-2 VIEWS Routine 11/13/2021 8:56 AM Right knee kenn n, Results for this COMPARISON CDT unspecified procedure are i n chronicity the results section. documented in this encounter Results XR Knee Lt 1-2 Views Comparison (11/13/2021 8:56 AM CDT) Anatomical Region Laterality Modality Lower Extremity, Knee Digital Radiograph y Specimen (Source) Anatomical Collection Method Collection Time Re ceived Time Location / / Volume Laterality 11/13/2021 8:45 AM CDT Impressions 11/13/2021 9:05 AM CDT COMPARISON: ??None. FINDINGS: ??Three views were obtained of the right knee. 2 views of the left knee for comparison purposes. Intramedullary mylene with distal interlock ing screw partially visualized in the distal femur. There is chronic deformity of the distal femoral shaft. The hardware is intact where seen. The joint spaces of the right knee are preserved. No malali gnment. No joint effusion. Well corticated small ossicle just media l to the left medial femoral condyle could be sequela of prior injury or other nonspecific soft tissue ossification. Procedure Note Aureliano Bowling MD - 11/13/2021Formatt ing of this note might be different from the original. IMPRESSION COMPARISON: None. FINDINGS: Three views were obtained of t he right knee. 2 views of the left knee for comparison purposes. Intramedullary mylene with distal interlock ing screw partially visualized in the distal femur. There is chronic deformity of the distal femoral shaft. The hardware is intact where seen. The joint spaces of the right knee are preserved. No malalignment. No joint eff usion. Well corticated small ossicle just media l to the left medial femoral condyle could be sequela of prior injury or other nonspecific soft tissue ossification. Franco Juares MD RAD GD XR Knee Rt 3 Views (11/13/2021 8:55 AM CDT) Anatomical Region Laterality Modality Lower Extremity, Knee Digital Radiograph y Specimen (Source) Anatomical Collection Method Collection Time Re ceived Time Location / / Volume Laterality 11/13/2021 8:45 AM CDT Impressions 11/13/2021 9:05 AM CDT COMPARISON: ??None. FINDINGS: ??Three views were obtained of the right knee. 2 views of the left knee for comparison purposes. Intramedullary mylene with distal interlock ing screw partially visualized in the distal femur. There is chronic deformity of the distal femoral shaft. The hardware is intact where seen. The joint spaces of the right knee are preserved. No malali gnment. No joint effusion. Well corticated small ossicle just media l to the left medial femoral condyle could be sequela of prior injury or other nonspecific soft tissue ossification. Procedure Note Aureliano Bowling MD - 11/13/2021Formatt ing of this note might be different from the original. IMPRESSION COMPARISON: None. FINDINGS: Three views were obtained of t he right knee. 2 views of the left knee for comparison purposes. Intramedullary mylene with distal interlock ing screw partially visualized in the distal femur. There is chronic deformity of the distal femoral shaft. The hardware is intact where seen. The joint spaces of the right knee are preserved. No malalignment. No joint eff usion. Well corticated small ossicle just media l to the left medial femoral condyle could be sequela of prior injury or other nonspecific soft tissue ossification. Franco Juares MD RAD GD documented in this encounter Visit Diagnoses Diagnosis Right knee pain, unspecified chronicity Right knee pain, unspecified chronicity documented in this encounter Care Teams City Sanitarian Relationship Specialty Start Date End Date Meng Conner MD PCP - General 02/03/[address] [facility], [address] documented as of this encounter
--- OUTSIDE RECORDS SUMMARY | 2022-05-10 04:13 | XMS_ITS | Encounter Summary ---
:1985 Author Organization [facility] Address [address] [address] Care Team Providers Name Role Phone Unassigned, Provider Primary Care Provider Unavailable Encounter Details Date Type Department Care Team Description 08/14/2007 Office Visit [facility] [address] [address] [place] [address] [place], [place] [id number] (Wo rk) Social History Tobacco Use Types Packs/Day Years Used Date Smoking Tobacco: Never Assessed Sex Assigned at Date Recorded Not on file documented as of this encounter Last Filed Vital Signs Vital Sign Reading Time Taken Comments Blood Pressure 117/75 08/14/2007 8:42 AM CDT Pulse 83 08/14/2007 8:42 AM CDT Temperature 36.9 ??C (98.4 ??F) 08/14/2007 8:42 AM CDT C: 36 .9 C Respiratory Rate 12 08/14/2007 8:42 AM CDT Oxygen Saturation - - Inhaled Oxygen Concentration - - Weight - - Height - - Body Mass Index - - documented in this encounter Progress Notes Lourdes Sarabia MD - 08/14/2007 12:01 AM CDT Progress Notes signed by Lourdes Sarabia MD at 09/16/07 0805 Author: Lourdes Sarabia MD Service: (none) Author Type: Physician Filed: 09/24/10 0131 Note Time: 08/14/07 0001 Status: Signed Refrigeration Installer: Lourdes Sarabia MD (Physician) NAME: MISSY LOVE MR#: [id number] ACCT: [id number] VISIT: [id number] DICTATING CLINICIAN: LOURDES SARABIA MD JOB: [id number] LOC: 520 CLINIC PROGRESS NOTE DATE OF VISIT: 08/14/2007 SUBJECTIVE: CHIEF COMPLAINT: Sinus pressure. HPI: This is a 22-year-old, comes in with a 1-day history of throat pain and sinus pressure. The patient says he woke up this morning, he had a lot of sinus pressure, a runny nose, sore throat. He looked in the back of his throat and thinks that he seen something growing back there. He feels tired and rundown. He says it is incredibly painful for him. He still can breathe fine. His neck is not so swollen. He has no trouble eating or drinking. He says that it is just very painful for him. Has not eaten anything or scratched his throat as far as he knows. PAST MEDICAL HISTORY: None. PAST SURGICAL HISTORY: None. MEDICATIONS: None. ADR/ALLERGIES: NO KNOWN DRUG ALLERGIES. OBJECTIVE: VS: BP: 117/75. T: 98.5. P: 83. R: 12. GENERAL: Alert and orientated, in no apparent distress, sitting very comfortably. Tympanic membranes and sinuses are nontender. Oropharynx is pink and moist. Both of his tonsils are enlarged and erythematous. There actually looks like there is some swelling between his uvula and his left tonsil. It almost has somewhat of a spiky appearance to it. It is very small, probably less than 1 cm, but when he does say ah, it does come down somewhat. NECK: Reveals no lymphadenopathy. LUNGS: Clear. HEART: Regular. ABDOMEN: Soft, nontender. EXTREMITIES: No rash or cyanosis. Strep screen is negative. ASSESSMENT: 1. Tonsillitis. 2. Abnormal swelling in the back of his throat. PLAN: Augmentin 875 1 p.o. b.i.d. x10 days, ibuprofen 800 mg 1 p.o. t.i.d. x10 days, Vicodin 1 to 2 every 6 hours p.r.n. pain. Patient says that he is in an incredible amount of pain and he says he wants whatever that is cut out immediately. I told him that it is not affecting his breathing, he is able to eat. It may be that this was just always present, and now that everything is swollen, you can see it more prominently. He was quite concerned about the fact that I did not know 100% what it was, and he wanted to go over to ENT immediately and have them cut it out. I told him at this point I think we certainly should try some antibiotic treatments and anti-inflammatories, treat his pain, and he can call me back within 48 hours to let me know how he is doing. If he still is having significant discomfort, with no improvement, I will call ENT for their opinion. It is quite small and it just really looks like it is part of the rest of the pharyngeal tissue, it just looks like it is swollen to me. It obviously is quite distressing to the patient and painful, but I think this is due to the infection, so we will treat this, and then I gave him my number to call me in 48 hours to let me know how he is doing, and if it is not significantly improved, we will refer him to ENT. In the meantime, if it seems like it is growing or if he has trouble eating or breathing, he is to go to the emergency room, and he understands that. KMM:[id number] C: 08/14/07 19:09 DOCUMENT: [id number] documented in this encounter Plan of Treatment Upcoming Encounters Date Type Specialty Care Team Description 05/16/2022 Appointment Orthopedics Derrell Lei MD [address] [phone] (Wo rk) documented as of this encounter Visit Diagnoses Not on filedocumented in this encounter Care Teams Cable Tool Driller Relationship Specialty Start Date End Date Unassigned, Provider PCP - General 04/23/01 12/19/[address] [place] [address] documented as of this encounter
--- OUTSIDE RECORDS SUMMARY | 2022-05-10 04:13 | XMS_ITS | Encounter Summary ---
:1985 Author Organization [facility] Address [address] [place] [address] Care Team Providers Name Role Phone Gene Laws MD Primary Care Provider Reason for Visit Reason Comments CYST--ED Encounter Details Date Type Department Care Team Description 10/31/2014 Emergency [facility] Rell Louie, Cyst of skin of breast, left (Primary Dx); [address] Michel MD Person with feared complaint in whom [place] [address] [address] [phone] [place], [place] [address] (Wo rk) Social History Tobacco Use Types Packs/Day Years Used Date Smoking Tobacco: Never Assessed Sex Assigned at Date Recorded Not on file documented as of this encounter Medications at Time of Discharge Medication Sig Dispensed Refills Start Date End Date unknown medication Indications: PN: 0 08/14/2007 benztropine (AKA Take 0.5 mg by 0 07/11/201312/03 COGENTIN) 0.5 MG tablet mouth. Take 1 tablet (0.5 mg) by mouth 2 times daily escitalopram oxalate (AKA Take 10 mg by mouth. 0 06/26/2013 12/27/2014 LEXAPRO) 10 MG tablet Take 1 tablet (10 mg) by mouth At Bedtime haloperidol (AKA HALDOL) Take 10 mg by mouth. 0 0 07/11/2013 12/27/2014 10 MG tablet Take 1 tablet (10 mg) by mouth 2 times daily hydrOXYzine HCl (AKA Take 50-100 mg by 0 07/11/19 14 12/27/2014 ATARAX) 50 MG tablet mouth. Take 1-2 tablets (50-100 mg) by mouth every 4 hours as needed (Anxiety) RISPERIDONE OR 0 12/27/2014 traZODone (AKA DESYREL) Take 1 Tab by mouth 30 Tab 0 07/201312/27/2014 100 MG tabletIndications: at bedtime as needed Insomnia for Sleep. Indications: Trouble Sleeping documented as of this encounter ED Notes Rell Louie MD - 10/31/2014 2:08 PM CDT Called for patient in triage and no response. Not seen by MD staff. Please see nursing notes. - Rell Louie MD Heidy Sanon RN - 10/31/2014 12:30 PM CDT Pt called in triage, no answer. Heidy Sanon RN - 10/31/2014 12:16 PM CDT Pt called in triage, no answer documented in this encounter Plan of Treatment Upcoming Encounters Date Type Specialty Care Team Description 05/16/2022 Appointment Orthopedics Derrell Lei MD [address] [place] [phone] (Wo rk) documented as of this encounter Visit Diagnoses Diagnosis Cyst of skin of breast, left - Primary Person with feared complaint in whom no diagnosis was made documented in this encounter Care Teams Numerical Control Machine Machinist Relationship Specialty Start Date End Date Gene Laws MD PCP - General Psychiatry 09/02/13 12/25/[address] [place] [address] [place] [address] documented as of this encounter
--- OUTSIDE RECORDS SUMMARY | 2022-05-10 04:13 | XMS_ITS | Encounter Summary ---
:1985 Author Organization [facility] Address [address] [place] [address] Care Team Providers Name Role Phone Unassigned, Provider Primary Care Provider Unavailable Encounter Details Date Type Department Care Team Description 12/20/2005 Office Visit [facility] Ophthalmo logy Adriano Louie, REBECCA [address] [place] [address] [place] [address] [phone] Social History Tobacco Use Types Packs/Day Years Used Date Smoking Tobacco: Never Assessed Sex Assigned at Date Recorded Not on file documented as of this encounter Progress Notes Adriano Louie OD - 12/20/2005 12:01 AM CDT Progress Notes signed by Adriano Louie OD at 12/20/05 1117 Author: Adriano Louie OD Service: (none) Author Type: Precipitator Operator Filed: 09/23/10 1316 Note Time: 12/20/05 0001 Status: Signed Fast Food Delivery Driver: Adriano Louie OD (Precipitator Operator) Ophthalmology / Optometry: Consultation Summary IMPRESSION: Left Eye: Hordeolum, Chief Complaint: Left Eye: Painful eye / eyelid. Evaluation request by: mitch taylor ASSESSMENT/DIAGNOSIS Left Eye: Hordeolum, TREATMENT hot pack QID X 7 days PLAN / RECOMMENDATIONS: Patient is to schedule follow-up visit in the ophthalmology department: PRN. CC: message sent to: mitch taylor *SH~EYE~CONSUM ~[place] Note completed on: 12/20/2005 11:19 AM documented in this encounter Plan of Treatment Upcoming Encounters Date Type Specialty Care Team Description 05/16/2022 Appointment Orthopedics Derrell Lei MD [address] [phone] (Wo rk) documented as of this encounter Visit Diagnoses Not on filedocumented in this encounter Care Teams Benchroom Shop Optician Relationship Specialty Start Date End Date Unassigned, Provider PCP - General 04/23/01 12/19/[address] [place] [address] documented as of this encounter
--- OUTSIDE RECORDS SUMMARY | 2022-05-10 04:13 | XMS_ITS | Encounter Summary ---
:1985 Author Organization [facility] Address [address] [place] [address] Care Team Providers Name Role Phone Meng Conner MD Primary Care Provider Unavailable Encounter Details Date Type Department Care Team Description 12/28/2014 Consent for [facility] Department [facility] INFORM ED CONSENT Procedure/Treatment NEUROLEP TIC MEDICATIONS Social History Tobacco Use Types Packs/Day Years Used Date Smoking Tobacco: Unknown Alcohol Use Standard Drinks/Week Comments No 0 (1 standard drink = 0.6 oz pure alcoho l) Sex Assigned at Date Recorded Not on file documented as of this encounter Plan of Treatment Upcoming Encounters Date Type Specialty Care Team Description 05/16/2022 Appointment Orthopedics Derrell Lei MD [address] [place] [phone] (Wo rk) documented as of this encounter Visit Diagnoses Not on filedocumented in this encounter Care Teams Acquisition Specialist Relationship Specialty Start Date End Date Meng Conner MD PCP - General 02/03/[address] [facility], [address] documented as of this encounter
--- OUTSIDE RECORDS SUMMARY | 2022-05-10 04:13 | XMS_ITS | Encounter Summary ---
:1985 Author Organization [facility] Address [address] [place] [address] Care Team Providers Name Role Phone No Primary/Referring, Phy Primary Care Provider Unavailable Reason for Referral Consult/Transfer Care (Routine) - Closed Specialty Diagnoses / Procedures Referred By Contact Elizabeth orta To Contact Lesia Abbasi DO [address] [place] [address] Referral ID Status Reason Start Date Expiration Date Visits Requ ested Visits Authorized [id number] Closed 12/29/2014 01/29/2015 1 1 Scheduling Instructions Your provider has recommended you to fol low up with your Primary Partner Marketing Manager. If you are currently seeing a [facility] provider for your primary care needs, a rehabilitation aide/scheduler will contact you within the ne xt 3 business days to assist you in setting up this appointment. To schedule your ap pointment you may call [phone]. We suggest you call your [employer] about your coverage and benefits for this service. Procedure/Equipment (Routine) - Incomplete Specialty Diagnoses / Procedures Referred By Contact Elizabeth orta To Contact Lesia Abbasi DO [address] [place] [address] Referral ID Status Reason Start Date Expiration Date Visits V isits Requested Authorized [id number] Incomplete 12/29/2014 1 1 Scheduling Instructions If scheduling assistance is needed, keshav small inquire with the Hospital staff upon discharge. (Routine) Specialty Diagnoses / Procedures Referred By Kevin orta To Contact Lesia Abbasi DO [address] [place] [id number] Referral ID Status Reason Start Date Expiration Date Visits Requ ested Visits Authorized Reason for Visit Reason Comments Suicidal Auth/Cert - Closed Specialty Diagnoses / Procedures Referred By Contact Refer red To Contact Diagnoses Suicidal ideation Suicidal ideation Referral ID Status Reason Start Date Expiration Date Visits Requ ested Visits Authorized [id number] Closed 1 1 Encounter Details Date Type Department Care Team Description 12/26/2014 - Hospital NE8 Martha Coyle MD [address] [place] [id number] Suicidal ideation (Primary Dx); 12/29/[address] [place] [address] Amparo Walker MD [address] [place] [id number] Anxiety state; [place], [place] Anupam Bacon MD [address] [place] [id number] Bipolar 1 disorder, mixed; [id number] Lesia Abbasi DO [address] [place] [id number] 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, in remission; [phone] Schizoaffective disorder, unspecified type; Bipolar disorde r, unspecified; Nondependent am phetamine or related acting sympathomimetic abuse, unspecified; Depressive diso rder; Personal histor y of noncompliance with medical treatment, presenting hazards to health Social History Tobacco Use Types Packs/Day Years Used Date Smoking Tobacco: Unknown Alcohol Use Standard Drinks/Week Comments No 0 (1 standard drink = 0.6 oz pure alcoho l) Sex Assigned at Date Recorded Not on file documented as of this encounter Last Filed Vital Signs Vital Sign Reading Time Taken Comments Blood Pressure 114/79 12/28/2014 2:19 AM CDT Pulse 67 12/28/2014 2:19 AM CDT Temperature 36.4 ??C (97.6 ??F) 12/28/2014 2:19 AM CDT Respiratory Rate 16 12/28/2014 2:19 AM CDT Oxygen Saturation 98% 12/28/2014 2:19 AM CDT Inhaled Oxygen Concentration - - Weight 87.7 kg (193 lb 6.4 oz) 12/28/2014 2:19 AM CDT Height 175.3 cm (5' 9) 12/28/2014 2:19 AM CDT Body Mass Index 28.56 12/28/2014 2:19 AM CDT documented in this encounter Discharge Summaries Lesia Abbasi - 12/29/2014 2:08 PM CDT [facility] PSYCHIATRY DISCHARGE SUMMARY Admit Date: 12/26/2014 7:36 PM Discharge Date: 12/29/2014 Attending Psychiatrist: Lesia Abbasi Discharge Diagnoses Principle DSM V Disorders: 1. Bipolar Disorder Mixed Substance Use Disorders: 1. Methamphetamine Use Disorder Reason for Hospitalization Problem that led to hospitalization: Landon Lerma is a 29 y.o. old male who was admitted for Acute Psychiatric Decompensation. History of Present Illness taken from admission note by Dr. Anupam Bacon 12/28/2014: CHIEF COMPLAINT: Fuck off and let me sleep. HISTORY OF PRESENT ILLNESS per APRIL's note in the Emergency Department, Narrative: The patient is a 29 y.o. male who comes to the ED with medics. Patient called crisis line tonight feeling suicidal. Patient reports he began using meth a few days ago. He reports a bunch of stuff has been going on and building up. Patient states I don't want to live in this world anymore and I wasn't built for this. He reports he would choke himself but that his body won't physically allow himself to do it. Patient reports if he could find a sharp enough knife I would cut myself. He reports he tried kill himself by getting into his car and letting it run, he also tried to OD on pills but that someone got there in the dejon of time. Patient appears angry. He admits to sleeping poorly and waking up often. He reports his thoughts are racing. He also stated he saw a shadow glide out of the room during interview. He also reported that a shadow just waved at me. Patient reports he sees all sorts of weird things and that he is not sure if it is real. Patient admits to auditory hallucinations and seeing shapes and people. Patient reports that shadows at night keep him awake. Denies HI, but states if someone were to get in my way this time...no one needs to stop me. On interview with the patient, This seems to be patient's second hospitalization for suicidal attempt. Last time, he was admitted in 07/2013 for toxic encephalopathy secondary to Risperdal overdose and was admitted to medicine. Today, Patient was irritable on approach. He dismissed interview stating that he is tired and that he willnot be able to answer any questions. However, he confirmed the above [COMPOSITE LAMINATOR's note]. He confirmed that he was using meth and was suicidal. He attempted suicide by carbon monoxide poisoning and overdosing but was not successful. He admitted to seeing shadows occasionally and auditory hallucinations. Hedenies homicidal ideation. Asked him where he was living, he said that he lost his place in [place]. Did not elaborate further. He denied alcohol and other drug use apart from meth. At this time, he reports that he is still suicidal but feels safe in the hospital. He is agreeable to being started on medications in the hospital. Access to Firearms? Yes. Patient states his step-dad [place] guns [place]. Patient states he thinks he is biding time here until step-dad gets back to town. Attending: He was seen the next day and he remains angry and uncooperative. He refused to work with nurses for assessment or orientation. He was approached in his room but faced away and mumbled his replies. He angrily assures me he is still suicidal. He will not try to hurt himself here because we will prevent him, but he has plans for when he leaves. He remains voluntary but is not asking to leave.His behavior is not yet a behavioral emergency. Chemical Dependency History, Past Psychiatric History, Family History and Past Medical History: See Admission Note completed by Dr. Anupam Bacon on 12/16/2014. Lab Studies, EKG & other diagnostic testing Results for orders placed or performed during the hospital encounter of 12/26/14 BASIC METABOLIC PANEL Result Value Ref Range SODIUM 139 135 - 145 mmol/L POTASSIUM 3.5 3.5 - 5.3 mmol/L CHLORIDE 105 95 - 106 mmol/L CO2 25 22 - 30 mmol/L ANION GAP (CALC.) 9 7 - 16 mmol/L GLUCOSE 109 70 - 180 mg/dl CALCIUM 8.5 8.4 - 10.2 mg/dl BUN 10 7 - 20 mg/dl CREATININE 0.89 0.66 - 1.25 mg/dl GFR, ESTIMATED >60 >60 ml/min/1.73m2 GFR EST IF >60 >60 ml/min/1.73m2 HEMOGRAM/PLTS Result Value Ref Range WBC 6.6 4.0 - 11.0 k/ul RBC 4.81 4.5 - 5.9 M/ul HGB 13.7 13.5 - 17.5 g/dl HCT 40.2 (L) 41.0 - 53.0 % MCV 83.6 80 - 100 fl MCH 28.5 26 - 34 pg MCHC 34.1 32 - 36 g/dl RDW 12.8 11.5 - 14.5 % PLTS 243 150 - 450 k/ul MPV 10.9 9.4 - 12.4 fl URINE DRUGS OF ABUSE SCREEN (WITH CONFIRMATION IF POSITIVE) Result Value Ref Range AMPHETAMINES SCREEN Presumptive Positive (A) NEG BARBITURATES SCREEN Negative NEG BENZODIAZEPINES SCREEN Negative NEG COCAINE METABOLITE SCREEN Negative NEG METHADONE SCREEN Negative NEG OPIATES SCREEN Negative NEG OXYCODONE SCREEN Negative NEG PHENCYCLIDINE (PCP) SCREEN Negative NEG THC(MARIJUANA) METAB SCREEN Negative NEG CREATININE URINE,TOX 199.8 mg/dL UA CONDITIONAL UC Result Value Ref Range URINE COLOR Yellow URINE CLARITY Hazy SPECIFIC GRAVITY,UR 1.018 1.005 - 1.030 PH, URINE 6.0 4.5 - 8.0 PROTEIN, URINE QUAL Negative NEG mg/dl GLUCOSE, URINE QUAL Negative NEG mg/dl KETONES, URINE Negative NEG mg/dl UROBIL, URINE QUAL <2.0 <2.0 mg/dl BILIRUBIN, URINE Negative NEG BLOOD, URINE Negative NEG NITRITE, URINE Negative NEG LEUKOCYTE EST., UR Negative NEG RBC'S 1 0 - 3 /hpf WBC'S 3 0 - 5 /hpf EPITH, SQUAMOUS Occ /hpf MUCOUS, URINE Present CRYSTALS, AMORPHOUS Present URINE DRUGS OF ABUSE CONFIRMATION Result Value Ref Range COMMENT Confirmed by Definitive Method AMPHETAMINES CONFIRM (A) NEG Confirmed Positive Amphetamine and Methamphetamine Hospital Course 1. Medication Trials and Changes: Agreed to resume medications, apparently had not taken medicationsfor six months prior to this hospitalization, however, started on nicotine replacement, comfort medications and as needed anti-anxiety medications such as Hydroxyzine which he accepted infrequently. Had zyprexa zydis 10 mg once in the ED. Exceedingly irritable at the beginning of treatment, stating suicide risk, but voluntary, hostile, isolated and slept quite a bit without sleep aides. He was not actually resumed on any prior to admission medications; this may have been inadvertent or planned to start later. He was initially so hostile and not forthcoming with information that the most recent medication list was not certain. There was concern of suicide risk based on his initial presentation. However, after he slept, , and his 2. Legal Status: voluntary 3. Group Attendance: none 4. Level of cooperation and Medication adherence: Initially hostile towards staff. Not violent. Cooperated with medications. He became cooperative, engaged in therapeutic dialogue, demonstrated flexibility and provided his most recent and plausible medication list. 5. 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 States it was a very short-lived relapse, so is confident he is already back on track in terms of relapse prevention skills. Moved out, all belongings in his car, asked to discharge today, and engaged in therapeutic dialogue with psychiatrist and SW re treatment options. He was quite flexible. He has recently conferred with his [place] (orprobation) officer too. Allowed psychiatrist to challenge his psychiatric symptomatology. He is not suicidal. He frequently speaks of hope and future plans. He is very assertive about obtaining necessary placement so he can remain sober. He seemed very honest about his most recent med regimen. He was f lexible about the likelihood he would need to change housing and clinicians a few times in the near future before he obtains his desired outcomes. Demonstrated mood stability, no paranoia, or misperceptions. 6. Discharge planning and coordination of care: Had a lengthy discharge meeting with SW, patient andpsychiatrist to ensure patient's readiness for discharge, assess reduced risks and relapse prevention skills, his medications and other issues described above. The multidisciplinary treatment team met (RN, OT, elementary school social worker, Physician) on a daily basis to discuss patient care and treatment planning. The psychiatric inpatient setting provided close nursing supervision and access to multiple treatment modalities and programming (group therapy, OT, one-to-one therapy.) Patient support systems such as family, caseworker intake, and other care providers were contacted as appropriate for collateral information and treatment planning. At the time of discharge, there appeared to be no evidence that the patient posed an imminent threatto self or others and a reasonable discharge plan was in place, we determined that the patient had achieved optimal medical benefit from hospitalization and was discharged with follow-up as detailed below. Consults none Mental Status Exam on Discharge BP 114/79 mmHg Pulse 67 Temp(Src) 97.6 ??F (36.4 ??C) (Oral) Resp 16 Ht 5' 9 (1.753 m) Wt87.726 kg (193 lb 6.4 oz) BMI 28.55 kg/m2 SpO2 98% Appearance: alert, rested, good eye contact, neatly groomed Behavior: engaged, cooperative Motor: normal Gait and Station: normal Speech: normal in rate and loudness Language: intact Thought process: logical and goal-directed and future oriented Thought content: without delusions, hallucinations or suicidal ideation, conveys hope Associations: intact Mood: neutral Affect: normal range, slightly intense Orientation: intact Attention: intact Memory: intact Fund of Knowledge: avg Insight: limited to fair Judgment: limited to fair Discharge Plans Condition at discharge:fair. Discharge destination: care home with longer term plans for sober living Labs or testing which should be done or considered in the outpatient setting: will need to establishwith psychiatric services at shelters in order to obtain refills and obtain [facility] related testing Appointments and Follow Up: Discharge Procedure Orders Specialty Referral Order Comments: [facility] Adult [facility] Health crisis Mobile crisis teams will respond to crises in [facility], 24 hours a day, 7 days a week. To reach our mobile team, call [phone]. Call Community Outreach for Psychiatric Emergencies (COPE) when a severe disturbance of mood or thinking threatens a person's safety or the safety of others. COPE professionals are available to manage the immediate crisis and provide a clinical assessment. Telephone consultations also are available. This service is available to all adults 18 and older, [place]. [facility]. Rule 25 Assessment Walk-in Hours: M-F 7am-2pm [phone] Scheduling Instructions: If scheduling assistance is needed, please inquire with the Hospital staff upon discharge. Order Specific Question Answer Comments Reason for visit? Crisis Information Appointment Urgency? Non-Urgent Primary Care follow up - [facility] location Order Comments: Thursday January 08, [address] Chambers [facility]: [place]; [phone]; [address] [place] [address] We ask that you bring your insurance card, picture ID and a list of medications and dose are currently taking including vitamins. Scheduling Instructions: Your provider has recommended you to follow up with your Primary Partner Marketing Manager. If you are currently seeing a [facility] provider for your primary care needs, a rehabilitation aide/scheduler will contact you within the next 3 business days to assist you in setting up this appointment. To scheduleyour appointment you may call [phone]. We suggest you call your health insurance company about your coverage and benefits for this service. Order Specific Question Answer Comments What type of follow up? IP Discharge Reason for visit? Hospital Follow up Appointment Urgency? Non-Urgent DISCHARGE MD NAME Order Comments: I, Lesia Abbasi, DO, take responsibility for the discharge of this patient and havereviewed the transfer orders report for accuracy. If any other questions occur regarding this patient's orders or the plan of care, I can be reached at [phone] . DISCHARGE INSTRUCTIONS TO PATIENT Order Comments: No illicit drug use, keep all appointments - should be psychiatric services at the shelters - will need routine lab work for [facility] use, follow instructions and recommendations provided by [employer] Office Technician, call crisis line(s) and/or go to an Emergency room if you experience psychiatric distress and/or suicidal thoughts When to Resume Normal Activities: Order Comments: You may resume normal activities at the time you are discharged Discharge Diagnosis Order Comments: Bipolar Affective disorder Mixed, Methamphetamine Use disorder Regular Diet Discharge Medications Upon discharge, patient is on no antipsychotic medications. Current Discharge Medication List START taking these medications Details hydrOXYzine HCl (AKA ATARAX) 50 MG tablet Take 1 Tab by mouth every 6 hours as needed for Anxiety (anxiety). Qty: 30 Tab, Refills: 0 LITHium carbonate (AKA LITHOBID) 300 MG controlled release tablet Take 2 Tabs by mouth daily at bedtime. Qty: 60 Tab, Refills: 0 mirtazapine (AKA REMERON) 45 MG tablet Take 1 Tab by mouth every evening. Qty: 30 Tab, Refills: 0 STOP taking these medications ARIPiprazole (AKA ABILIFY) 5 MG tablet Comments: Reason for Stopping: benztropine (AKA COGENTIN) 1 MG tablet Comments: Reason for Stopping: fluoxetine (AKA PROZAC) 40 MG capsule Comments: Reason for Stopping: gabapentin (AKA NEURONTIN) 300 MG capsule Comments: Reason for Stopping: prazosin (AKA MINIPRESS) 1 MG capsule Comments: Reason for Stopping: traZODone (AKA DESYREL) 50 MG tablet Comments: Reason for Stopping: Discharge Summary and Discharge Coordination of Care is 50 minutes. Report completed and signed by: Lesia Abbasi DO 12/29/2014, 2:08 PM NE8 . documented in this encounter Discharge Instructions Discharge InstructionsArianNanZelda A - 12/29/2014 2:25 PM CDT General Information Discharging physician: Dr. Abbasi Discharge date: 01/29/15 Discharge Disposition [facility] Immunization There is no immunization history for the selected administration types on file for this patient. There is documentation in the Immunization/Injection section and/or the MAR (NOT in the notes) that the patient: Pneumonia:did not meet the criteria to receive pneumococcal vaccine. Influenza:did not receive the influenza (seasonal flu) vaccine because it is not flu season. Home Medications Do not drink alcohol. Talk to your doctor before taking other medications. Talk to your doctor before taking any herbal medications or supplements. Contact your outpatient doctor with any questions about your medications. This information has been faxed or sent to: ANDREWS Date: NA, Time:NA Home Care Instructions Be sure to keep all of your outpatient appointments. NONE Valuables/Medications Patient and/or family verified that all valuables have been returned: Yes Patient and/or family verified that all valuables removed from room safe: Yes [employer] Symptoms Call your clinic or seek medical help if you have any sudden change in your condition or if you haveany of the following danger signs: Suicidal or homicidal thoughts, increase or decrease in appetitive or sleep pattern, alcohol and/or drug use, increase in anxiety or agitation or paranoia, feelings of depression or hopelessness, voices becoming bothersome, medication side effects that are not tolerable. Resources 1. [employer] [facility] [address], [address], [place] [address] [facility] ([employer]) improves the lives of children and adults with mental illnesses and their families by providing free classes on mental illnesses and support groups for adults with mental illnesses, parents and family members. For more information: Toll free: 3-493-YIMI-ScoreStreak Website: www.[employer].org 2. Online go to: www.[place]Help.info 3 [facility] (serving [facility]) [address] [place] [address] Crisis Line Numbers 1. [facility] [phone] 2. Community Outreach Psychiatric Emergencies (COPE) [phone] 3. [facility] [phone] 4. [facility] [phone] or [phone] Contact Information [address] [address] For questions about your discharge instructions call the nursing unit : [facility], Emergency & Urgently Needed Care: For emergencies call 911 and/or get medical help right away. If you are a [facility] member and have medical needs after clinic hours you may call the CareLineat [phone] or . All medical devices (telemetry/IV/etc) unless otherwise ordered, have been removed before discharge. Smoking and Second-hand Smoke Exposure: Smoking damages blood vessels, reduces the oxygen in your blood and makes your heart beat too fast. If you smoke you should quit. Everyone should avoid second- hand smoke. If you would like further assistance after your discharge, please contact [phone] or visit www.Funinhand and [facility] [employer] can offer further information and assistance. We hope you had a positive experience and that you can definitely recommend [facility] to yourfamily and friends. You may receive a survey in the mail in about 2 weeks and we look forward to hearing your feedback. When leaving your room at discharge, please stop at the nursing unit desk to check out. documented in this encounter Medications at Time of Discharge Medication Sig Dispensed Refills Start Date End Date unknown medication Indications: PN: 0 08/14/2007 hydrOXYzine HCl (AKA Take 1 Tab by mouth 30 Tab 0 201401/21/2022 ATARAX) 50 MG tablet every 6 hours as needed for Anxiety (anxiety). LITHium carbonate (AKA Take 2 Tabs by mouth 60 Tab 0 01/21/2022 LITHOBID) 300 MG daily at bedtime. controlled release tablet mirtazapine (AKA REMERON) Take 1 Tab by mouth 30 Tab 0 0 12/29/2014 01/21/2022 45 MG tablet every evening. documented as of this encounter OR Notes H&P - Anupam Bacon MD - 12/28/2014 2:03 PM CDT [facility] INPATIENT PSYCHIATRIC HISTORY & PHYSICAL Landon Lerma 29 y.o. male ADMISSION DATE/TIME: 12/26/2014 7:36 PM DATE OF SERVICE: 12/28/2014 PRIMARY MENTAL HEALTH PROVIDER: none (he has dropped out of care) INFORMANTS: patient and portions of the medical record CHIEF COMPLAINT: Fuck off and let me sleep. HISTORY OF PRESENT ILLNESS per COMPOSITE LAMINATOR's note in the Emergency Department, Narrative: The patient is a 29 y.o. male who comes to the ED with medics. Patient called crisis line tonight feeling suicidal. Patient reports he began using meth a few days ago. He reports a bunch of stuff has been going on and building up. Patient states I don't want to live in this world anymore and I wasn't built for this. He reports he would choke himself but that his body won't physically allow himself to do it. Patient reports if he could find a sharp enough knife I would cut myself. He reports he tried kill himself by getting into his car and letting it run, he also tried to OD on pills but that someone got there in the dejon of time. Patient appears angry. He admits to sleeping poorly and waking up often. He reports his thoughts are racing. He also stated he saw a shadow glide out of the room during interview. He also reported that a shadow just waved at me. Patient reports he sees all sorts of weird things and that he is not sure if it is real. Patient admits to auditory hallucinations and seeing shapes and people. Patient reports that shadows at night keep him awake. Denies HI, but states if someone were to get in my way this time...no one needs to stop me. On interview with the patient, This seems to be patient's second hospitalization for suicidal attempt. Last time, he was admitted in 07/2013 for toxic encephalopathy secondary to Risperdal overdose and was admitted to medicine. Today, Patient was irritable on approach. He dismissed interview stating that he is tired and that he willnot be able to answer any questions. However, he confirmed the above [COMPOSITE LAMINATOR's note]. He confirmed that he was using meth and was suicidal. He attempted suicide by carbon monoxide poisoning and overdosing but was not successful. He admitted to seeing shadows occasionally and auditory hallucinations. Hedenies homicidal ideation. Asked him where he was living, he said that he lost his place in [place]. Did not elaborate further. He denied alcohol and other drug use apart from meth. At this time, he reports that he is still suicidal but feels safe in the hospital. He is agreeable to being started on medications in the hospital. Access to Firearms? Yes. Patient states his step-dad has guns [place]. Patient states he thinks he is biding time here until step-dad gets back to town. Attending: He was seen the next day and he remains angry and uncooperative. He refused to work with nurses for assessment or orientation. He was approached in his room but faced away and mumbled his replies. He angrily assures me he is still suicidal. He will not try to hurt himself here because we will prevent him, but he has plans for when he leaves. He remains voluntary but is not asking to leave.His behavior is not yet a behavioral emergency. PAST PSYCHIATRIC HISTORY: Inpatient Treatment: [facility], discharged AMA August 2013 Multiple prior psychiatric hospitalizations, previous commitments, and many at [facility] Outpatient Treatment: he has a case maager through [facility] Past Medication Trials: per [facility] records -- Prozac, Paxil, Zoloft, Effexor, Cymbalta, Wellbutrin, Remeron. Seroquel, Abilify, Risperdal, Geodon, Haldol, Zyprexa, Latuda. Xanax, Klonopin, Ativan, Valium, BuSpar, Vistaril, Cogentin. Depakote, Lamictal, lithium. ECT History: multiple series, most recent Aug, finds these helpful SUBSTANCE USE EVALUATION: The patient has a long history of polysubstance dependence and he abused amphetamines particularly. CD treatments: One prior chemical dependency treatment. Drug of choice is methamphetamine. He would not discuss withdrawal problems with me, including nictoine. SOCIAL HISTORY: per [facility] -- The patient was born and raised in [place], [place]. He was kicked out of his house when he was 12 years old and lived with friends. He did not graduate from high school. He has never been able to hold a job. He has a long extensive legal history. Chart says he has 3 children, patient says he only has 2, it is hard to tell which he has. He says he does not see his kids. In previous dictations, he has denied legal history, but the rn field case manager's thorough history indicates he has a long extensive legal history. See dictation. FAMILY HISTORY: Father suicided at age 44. He had multiple sclerosis. Polysubstance PAAT MEDICAL HISTORY Per ED note, He reports having a recent left retinal surgery. He has poor vision in that eye and hisdr is aware. He has an upcoming retinal surgery in Jan 19. No other medical concerns. Past Medical History Diagnosis Date ??? Schizoaffective disorder, chronic condition with acute exacerbation No past surgical history on file. ALLERGIES: No Known Allergies PRIOR MEDICATIONS: Prescriptions prior to admission Medication Sig Dispense Refill ??? ARIPiprazole (AKA ABILIFY) 5 MG tablet Take 5 mg by mouth daily. ??? benztropine (AKA COGENTIN) 1 MG tablet Take 1 mg by mouth two times a day. ??? fluoxetine (AKA PROZAC) 40 MG capsule Take 40 mg by mouth daily. ??? gabapentin (AKA NEURONTIN) 300 MG capsule Take 300 mg by mouth three times a day. ??? prazosin (AKA MINIPRESS) 1 MG capsule Take 2 mg by mouth every evening. ??? traZODone (AKA DESYREL) 50 MG tablet Take 50 mg by mouth daily at bedtime. REVIEW OF SYSTEMS: please see note dated 12/26/2014 by SCOTTIE Villegas CONSTITUTIONAL: 10 point ROS is reviewed and negative aside from what is mentioned in HPI. PSYCHIATRIC ROS: Could not be assessed at this time because of patient's noncooperation, but from the history that weknow from the Emergency Department, Patient seems to be having symptoms of depression such as hopelessness, worthlessness, decreased sleep and active suicidal ideation with a plan. Symptoms of yunier such as racing thoughts, although this could be anxiety Symptoms of psychosis such as auditory or visual hallucinations. ADMISSION PHYSICAL EXAM: Physical Exam: As per [facility]'s note in the Emergency Department: Constitutional: Well-developed, well-nourished. Nondiaphoretic. No distress. HENT: Normocephalic, atraumatic. Nose normal. Eyes: Pupils equal round reactive to light. Conjunctiva normal. No scleral icterus. EOM intact. Neck: Normal, non-tender range of motion. Supple. Cardiovascular: Regular rate and rhythm. No murmurs rubs or gallops appreciated. Radial and dorsalispedis pulses are strong and symmetric. Pulmonology/chest wall: No tenderness to palpation of chest wall. No respiratory distress. Breath sounds equal bilaterally. No wheezes, rales, or crackles noted. Abdominal: Soft, nondistended. Normal active bowel sounds. No tenderness, rebound or guarding. Musculoskeletal: Normal range of motion of all four extremities. No tenderness palpation of any extremities. No edema. Neuro: Alert and oriented x3. No cranial nerve deficits. Tone is normal. Skin: Warm and dry. No rashes. Psych: The patient is alert and dressed in hospital garb. Patient behaved in a cooperative manner during the interview. Mood: depressed. Affect is flat. He is lying on his back with poor eye contact. Speech is soft. Language use is intact. Motor: normal. Gait/Station: lying in bed. Thought processing: linear. LABS & STUDIES: Hospital Encounter on 12/26/14 (from the past 72 hour(s)) BASIC METABOLIC PANEL Result Value Ref Range SODIUM 139 135 - 145 mmol/L POTASSIUM 3.5 3.5 - 5.3 mmol/L CHLORIDE 105 95 - 106 mmol/L CO2 25 22 - 30 mmol/L ANION GAP (CALC.) 9 7 - 16 mmol/L GLUCOSE 109 70 - 180 mg/dl CALCIUM 8.5 8.4 - 10.2 mg/dl BUN 10 7 - 20 mg/dl CREATININE 0.89 0.66 - 1.25 mg/dl GFR, ESTIMATED >60 >60 ml/min/1.73m2 GFR EST IF >60 >60 ml/min/1.73m2 Narrative Performed at [facility], [address] [place] [id number] HEMOGRAM/PLTS Result Value Ref Range WBC 6.6 4.0 - 11.0 k/ul RBC 4.81 4.5 - 5.9 M/ul HGB 13.7 13.5 - 17.5 g/dl HCT 40.2 (L) 41.0 - 53.0 % MCV 83.6 80 - 100 fl MCH 28.5 26 - 34 pg MCHC 34.1 32 - 36 g/dl RDW 12.8 11.5 - 14.5 % PLTS 243 150 - 450 k/ul MPV 10.9 9.4 - 12.4 fl Narrative Performed at [facility], [address] [place] [id number] URINE DRUGS OF ABUSE SCREEN (WITH CONFIRMATION IF POSITIVE) Result Value Ref Range AMPHETAMINES SCREEN Presumptive Positive (A) NEG BARBITURATES SCREEN Negative NEG BENZODIAZEPINES SCREEN Negative NEG COCAINE METABOLITE SCREEN Negative NEG METHADONE SCREEN Negative NEG OPIATES SCREEN Negative NEG OXYCODONE SCREEN Negative NEG PHENCYCLIDINE (PCP) SCREEN Negative NEG THC(MARIJUANA) METAB SCREEN Negative NEG CREATININE URINE,TOX 199.8 mg/dL Narrative Performed at [facility], [address] [place] [id number] UA CONDITIONAL UC Result Value Ref Range URINE COLOR Yellow URINE CLARITY Hazy SPECIFIC GRAVITY,UR 1.018 1.005 - 1.030 PH, URINE 6.0 4.5 - 8.0 PROTEIN, URINE QUAL Negative NEG mg/dl GLUCOSE, URINE QUAL Negative NEG mg/dl KETONES, URINE Negative NEG mg/dl UROBIL, URINE QUAL <2.0 <2.0 mg/dl BILIRUBIN, URINE Negative NEG BLOOD, URINE Negative NEG NITRITE, URINE Negative NEG LEUKOCYTE EST., UR Negative NEG RBC'S 1 0 - 3 /hpf WBC'S 3 0 - 5 /hpf EPITH, SQUAMOUS Occ /hpf MUCOUS, URINE Present CRYSTALS, AMORPHOUS Present Narrative Performed at [facility], [address] [place] [id number] VITAL SIGNS: BP 114/79 mmHg Pulse 67 Temp(Src) 97.6 ??F (36.4 ??C) (Oral) Resp 16 Ht 5' 9 (1.753 m) Wt 87.726 kg (193 lb 6.4 oz) BMI 28.55 kg/m2 SpO2 98% MENTAL STATUS EXAM: Appearance: alert, distressed, reduced eye contact, disheveled with poor hygiene Behavior: dismissive, hostile Motor: normal Gait and Station: lying in bed Speech: normal in rate and loudness Language: intact Thought process: unable to assess Thought content: denies delusions, hallucinations or suicidal ideation Associations: intact Mood: angry Affect: irritable Orientation: intact Attention: intact Memory: intact Fund of Knowledge: intact Insight: poor Judgement: poor RISK ASSESSMENT: Risk factors: psychosis, substance use, previous attempt, plan with lethal intent, anger Protective factors: survivor SUICIDAL/HOMICIDAL IDEATION: he says he is still suicidal but safe on unti ASSESSMENT AND DIAGNOSES: Patient is a 29-year-old male with schizoaffective disorder, recent methamphetamine use, polysubstance dependence, antisocial personality disorder, numerous hospitalizations, numerous previous treatments, numerous medications. He presents with active suicidal ideation with a plan to kill himself usinga knife, gun, or carbon monoxide poisoning or overdosing in context of depression and recent meth use and auditory visual hallucinations . He has been off of his medications for six months and is beingadmitted voluntarily for safety concerns. Patient is agreeable to be started on medications. From [facility] 2014 -- indicated we had to stop the revolving door. The patient was committed in clearly has potential for serious and significant danger to himself. The patient needs inpatient psychiatric treatment for diagnostic assessment and treatment of the following symptoms: suicidal ideation, despair, anger, impulsivity This treatment can reasonably be expected to improve the patient???s condition. Estimated length of stay is 1-2 weeks DSM V DIAGNOSES ?? schizoaffective disorder, bipolar type. ?? Methamphetamine use disorder ?? R/o drug-induced psychosis and mood sx ?? History of previous suicide attempt. ?? Obsessive-compulsive disorder by hx MEDICAL DECISION MAKING: complex TREATMENT PLAN: Admit to: [facility]8 Legal status: Voluntary (recent dangerous behavior but just sleeping on unit so far; please put on hold if he asks to leave) Acuity Level: Red (caution - at risk, monitored for safety) NCF signed? No Diagnostic tests: Urinalysis, UDS, CBC, BMP done in the Emergency Department TREATMENT PLAN: # mood/psychosis A large portion of this is likely related to recent meth use. His severe fatigue and dysphoria should resolve substantially in a few days even without meds. He may request supportive prns for anxiety, sleep, agitation. His underlying diagnosis is unclear because he has not been clean and sober for very long. If he were to have extended sobriety, he may benefit from maintenance mood stabilizers and/or antipsychotics. # substance use disorder This appears to be a primary and fairly intractable problem. I do not see a clear pattern of use, such as self-medication of trauma or mood, enjoying getting high, or avoiding withdrawal. The antisocial PD diagnosis is unreliable until we know what he is like away from drugs and users. # risky behavior He has been struggling with drug use, psychosis, and dysphoria for long periods. When he is able to give consent, get routine tests for health, such as TSH, lipids, Hgb A1c, HIV, HCV # disposition He is unable to participate in discharge planning now. This note completed by attending MD: Anupam Bacon MD H&P - Erika Gutierrez MD - 12/28/2014 2:28 AM CDT [facility] Department of Psychiatry Brief Admission Date/Time of this exam: 12/28/2014 2:29 AM Brief subjective: As per [facility]'s note in the Emergency Department, Narrative: The patient is a 29 y.o. male who comes to the ED with medics. Patient called crisis line tonight feeling suicidal. Patient reports he began using meth a few days ago. He reports a bunch of stuff has been going on and building up. Patient states I don't want to live in this world anymore and I wasn't built for this. He reports he would choke himself but that his body won't physically allow himself to do it. Patient reports if he could find a sharp enough knife I would cut myself. He reports he tried kill himself by getting into his car and letting it run, he also tried to OD on pills but that someone got there in the dejon of time. Patient appears angry. He admits to sleeping poorly and waking up often. He reports his thoughts are racing. He also stated he saw a shadow glide out of the room during interview. He also reported that a shadow just waved at me. Patient reports he sees all sorts of weird things and that he is not sure if it is real. Patient admits to auditory hallucinations and seeing shapes and people. Patient reports that shadows at night keep him awake. Denies HI, but states if someone were to get in my way this time...no one needs to stop me. On interview with the patient, This seems to be patient's second hospitalization for suicidal attempt. Last time, he was admitted in 07/2013 for toxic encephalopathy secondary to Risperdal overdose and was admitted to medicine. Today, Patient was irritable on approach. He dismissed interview stating that he is tired and that he willnot be able to answer any questions. However, he confirmed the above [COMPOSITE LAMINATOR's note]. He confirmed that he was using meth and was suicidal. He attempted suicide by carbon monoxide poisoning and overdosing but was not successful. He admitted to seeing shadows occasionally and auditory hallucinations. Hedenies homicidal ideation. Asked him where he was living, he said that he lost his place in [place]. Did not elaborate further. He denied alcohol and other drug use apart from meth. At this time, he reports that he is still suicidal but feels safe in the hospital. He is agreeable to being started on medications in the hospital. Psychiatric Review of Systems Could not be assessed at this time because of patient's noncooperation, but from the history that weknow from the Emergency Department, Patient seems to be having symptoms of depression such as hopelessness, worthlessness, decreased sleep and active suicidal ideation with a plan. Symptoms of yunier such as racing thoughts, although this could be anxiety Symptoms of psychosis such as auditory or visual hallucinations. Past Medical History: Schizoaffective disorder. History of previous suicide attempt. Obsessive-compulsive disorder. Bipolar. Depression. Anxiety. PAST SURGICAL HISTORY: None. Review of systems: Could not be assessed as patient is not cooperative Current Medications: Current Facility-Administered Medications Medication Dose Route Frequency ??? hydrOXYzine HCl (aka ATARAX) tablet 50 mg 50 mg Oral Q6H PRN ??? nicotine (aka NICODERM) 14 MG/24HR 1 Patch 1 Patch Transdermal Daily ??? nicotine (aka NICORETTE) gum 2 mg 2 mg Oral Q1H PRN Allergies: Review of patient's allergies indicates no known allergies. Exam: Mental Status Exam: Patient is irritable, dismissive although seemed to calm down when I talked him about what I already know. He maintains no eye contact, appears disheveled and dressed in hospital garb. No motor abnormalities were noted. He did not speak much but his speech is fluent and soft. He did not tell me how his mood was and affect seems anxious/subdued/angry. Thought process could not be assessed as he was minimally verbal. Thought content centers around active suicidal ideation. He denies homicidal thoughts. Unknown if he is paranoid or delusional. He was easily distractible. Did not answer orientation questions. Could not assess insight at this time. Judgment is limited. Vitals: Patient Vitals for the past 24 hrs: BP Temp Temp src Pulse Resp SpO2 Height Weight 12/28/14 0219 114/79 mmHg 97.6 ??F (36.4 ??C) Oral 67 16 98 % 5' 9 (1.753 m) 87.726 kg (193 lb 6.4 oz) 12/27/14 1533 101/54 mmHg - - 58 16 98 % - - 12/27/14 1121 106/56 mmHg 98 ??F (36.7 ??C) Oral 63 16 98 % - - 12/27/14 0702 127/88 mmHg 97.8 ??F (36.6 ??C) Oral 50 16 99 % - - Association: Physical Exam: As per [facility]'s note in the Emergency Department: Constitutional: Well-developed, well-nourished. Nondiaphoretic. No distress. HENT: Normocephalic, atraumatic. Nose normal. Eyes: Pupils equal round reactive to light. Conjunctiva normal. No scleral icterus. EOM intact. Neck: Normal, non-tender range of motion. Supple. Cardiovascular: Regular rate and rhythm. No murmurs rubs or gallops appreciated. Radial and dorsalispedis pulses are strong and symmetric. Pulmonology/chest wall: No tenderness to palpation of chest wall. No respiratory distress. Breath sounds equal bilaterally. No wheezes, rales, or crackles noted. Abdominal: Soft, nondistended. Normal active bowel sounds. No tenderness, rebound or guarding. Musculoskeletal: Normal range of motion of all four extremities. No tenderness palpation of any extremities. No edema. Neuro: Alert and oriented x3. No cranial nerve deficits. Tone is normal. Skin: Warm and dry. No rashes. Psych: The patient is alert and dressed in hospital garb. Patient behaved in a cooperative manner during the interview. Mood: depressed. Affect is flat. He is lying on his back with poor eye contact. Speech is soft. Language use is intact. Motor: normal. Gait/Station: lying in bed. Thought processing: linear. Lab results: Component Latest Ref Rng 12/27/2014 COLOR (U) Yellow URINE CLARITY Hazy SPECIFIC GRAVITY, UR REGIONS 1.005 - 1.030 1.018 PH, URINE HP AND R 4.5 - 8.0 6.0 PROTEIN, URINE QUAL REGIONS NEG mg/dl Negative GLUCOSE, URINE QUAL REGIONS NEG mg/dl Negative KETONES, URINE REGIONS NEG mg/dl Negative UROBIL, URINE QUAL <2.0 mg/dl <2.0 BILIRUBIN, URINE NEG Negative BLOOD, URINE NEG Negative NITRITE, URINE NEG Negative LEUKOCYTE EST., UR NEG Negative URBC 0 - 3 /hpf 1 UWBC 0 - 5 /hpf 3 EPITH, SQUAMOUS Occ MUCOUS, URINE Present CRYSTALS, AMORPHOUS Present SODIUM 135 - 145 mmol/L 139 POTASSIUM 3.5 - 5.3 mmol/L 3.5 CHLORIDE 95 - 106 mmol/L 105 CARBON DIOXIDE 22 - 30 mmol/L 25 ANION GAP (CALC.) CENTRAL 7 - 16 mmol/L 9 GLUCOSE 70 - 180 mg/dl 109 CALCIUM, TOTAL 8.4 - 10.2 mg/dl 8.5 BUN 7 - 20 mg/dl 10 CREATININE 0.66 - 1.25 mg/dl 0.89 GFR, ESTIMATED >60 ml/min/1.73m2 >60 GFR EST IF >60 ml/min/1.73m2 >60 WBC 4.0 - 11.0 k/ul 6.6 RBC 4.5 - 5.9 M/ul 4.81 HGB 13.5 - 17.5 g/dl 13.7 HCT 41.0 - 53.0 % 40.2 (L) MCV 80 - 100 fl 83.6 MCH 26 - 34 pg 28.5 MCHC 32 - 36 g/dl 34.1 RDW 11.5 - 14.5 % 12.8 PLTS 150 - 450 k/ul 243 MPV 9.4 - 12.4 fl 10.9 AMPHETAMINES SCREEN NEG Presumptive Positive (A) BARBITURATES SCREEN NEG Negative BENZODIAZEPINES SCREEN NEG Negative COCAINE METABOLITE SCREEN NEG Negative METHADONE SCREEN NEG Negative OPIATES SCREEN NEG Negative OXYCODONE SCREEN NEG Negative PHENCYCLIDINE (PCP) SCREEN NEG Negative THC(MARIJUANA) METAB SCREEN NEG Negative CREATININE URINE, TOX 199.8 Impression: Patient is a 29-year-old male with schizoaffective disorder, methamphetamine use and history of OCD. He presents with active suicidal ideation with a plan to kill himself using a knife or carbon monoxide poisoning or overdosing in context of depression and recent meth use and auditory visual hallucinations . He has been off of his medications for six months and is being admitted voluntarily for safety concerns. Patient is agreeable to be started on medications. History of schizoaffective disorder, bipolar type. Methamphetamine use disorder History of obsessive-compulsive disorder Plan Admit to: NE8 Legal status: Voluntary Acuity Level: Red (caution - at risk, monitored for safety) NCF signed? No Diagnostic tests: Urinalysis, UDS, CBC, BMP done in the Emergency Department Medications: Patient has not been on any medications in the last six months. Ordered PRNs for tonight. He is agreeable to being started on medication. Further medication management defer to the primaryteam. Erika Broussardragini PGY-3 --- End of Report --- Associated attestation - Anupam Bacon MD - 12/28/2014 8:32 AM CDT Date of service: 12/28/2014 I saw and evaluated the patient. I agree with Dr. Gutierrez's (resident) note. documented in this encounter ED Notes Anitha Bloom RN - 12/27/2014 7:24 PM CDT Report given to Kristopher Thakur RN and care assumed by same. Anitha Bloom RN - 12/27/2014 6:28 PM CDT Pt remains asleep on bed, respirations even, breathing non-labored, skin appears warm, dry, pink. Anitha Bloom RN - 12/27/2014 5:48 PM CDT Pt given dinner tray and did wake up to eat this. Anitha Bloom RN - 12/27/2014 3:36 PM CDT Pt resting on bed, cooperative with VS, brief with RN, affect flat, denies any needs at this time. Karen Mccoy PA-C - 12/27/2014 3:13 PM CDT [facility] Emergency Department Sign Out Note Transfer of care from Srikanth Mares PA-C. See separate Emergency Department note. The patient, with a PMH of Bipolar Disorder and Schizoaffective Disorder, was evaluated by the previous provider for increased depression and suicidal ideations. Relapse on methamphetamines 2 corona ago. C/o auditory hallucinations. Off medication for 6 months. Workup Completed: Screening labs wnl. Plan for admission to psychiatry. Status voluntary. ED Shift Course: Stayed in room all shift. Sleeping much of the time. Reevaluated. Continues to have AH. Dose of Risperidone given. Disposition: Pt. on extended stay status. Pending psychiatry bed availability. Signed out to oncoming resident physician. Amparo Stout MD - 12/27/2014 9:47 AM CDT [facility] Emergency Department Sign Out Note Transfer of care from Dr. Slime Lai at 7am. See separate Emergency Department note. Patient has been depressed for the past four months. However, over the past few days it has gotten worse. He has been having suicidal ideation and feels very unsafe at home. Plan is to admit to psychiatry. Please see the mid-level note for further details of his course of treatment. Diagnoses: 1. Suicidal ideation Karen Barnes, RN - 12/27/2014 8:49 AM CDT Recieved report from chairman & chief executive officer nurse. Pt sleeping to this time and now awake for breakfast. Ate all. Up to BR independantly. Calm and cooperative. Srikanth Mares PA-C - 12/27/2014 8:49 AM CDT Signed out to me from overnight team at 0700. Filed Vitals: 12/27/14 0702 BP: 127/88 Pulse: 50 Temp: 97.8 ??F (36.6 ??C) Resp: 16 In brief, Landon Lerma is a 29 y.o. old male with past medical history bipolar disorder, schizoaffective disorder, hypertension here with complaint of increasing depression, suicidal ideation. Off medications for many years. [place] to need hospitalization. He is currently voluntary. He is medically cleared by previous providers for inpatient admission. U tox positive for amphetamines. He is pending bed assignment on sign out. 0910: resting in room. No complaints or questions. No further issues or events during ED course. Signed out to evening team at 1500 pending bed assignment. 1. Suicidal ideation 2. Bipolar 3. Medication non-compliance This note created using speech-recognition software and may contain unintended word substitutions. Anju Petersen RN - 12/27/2014 7:23 AM CDT Report given to Karen MORA. Anju Petersen RN - 12/27/2014 1:57 AM CDT Patient states that he hasn't eaten in 4 days and requested another boxed lunch. He was given crackers and peanut butter. Anju Petersen RN - 12/26/2014 11:35 PM CDT Patient requested another boxed lunch and was given on. Patient did not make any eye contact with this publications writer. He has a very flat affect. Dannielle Mcghee, [facility] - 12/26/2014 11:30 PM CDT [facility] ED Crisis Assessment Current Diagnosis: Schizoaffective Disorder, Bipolar, Drug Use Historical Diagnosis: Bipolar, Schizoaffective, Drug Use, OCD Narrative: The patient is a 29 y.o. male who comes to the ED with medics. Patient called crisis line marlene feeling suicidal. Patient reports he began using meth a few days ago. He reports a bunch of stuff has been going on and building up. Patient states I don't want to live in this world anymore and I wasn't built for this. He reports he would choke himself but that his body won't physically allow himself to do it. Patient reports if he could find a sharp enough knife I would cut myself. He reports he tried kill himself by getting into his car and letting it run, he also tried to OD on pills but that someone got there in the dejon of time. Patient appears angry. He admits to sleeping poorly and waking up often. He reports his thoughts are racing. He also stated he saw a shadow glide out of the room during interview. He also reported that a shadow just waved at me. Patient reports he sees all sorts of weird things and that he is not sure if it is real. Patient admits to auditory hallucinations and seeing shapes and people. Patient reports that shadows at night keep him awake. Denies HI, but states if someone were to get in my way this time...no one needs to stop me. Information from collateral (include names and phone numbers) none Does patient have legal guardian? (include names, phone numbers, and document contact with guardian)no Access to Firearms? Yes. Patient states his step-dad [place]. Patient states he thinks he is biding time here until step-dad gets back to town. Trauma History: unknown Clinical Symptoms: DEPRESSION: Helpless, Hopeless, Worthless and Decreased sleep YUNIER: Racing thoughts PSYCHOSIS: Auditory hallucinations and Visual hallucinations (consider organicty) Dangerousness: Suicidal: Attempt patient has made at least 3 prior attempts Homicidal: Thoughts denies, but does state that if anyone gets in his way this time no one needs to stop me Current Stressors and Relevant History: Patient will only report that a bunch of stuff has been going on and that it has been building up. Family History: unknown Mental Health Care: Hospitalizations ECT treatment at [facility], [facility] Chemical use/abuse: PRIMARY DRUG(S) OF ABUSE: methamphetamines Behavior in ED: Minimally cooperative Mental Status: Appearance: Unremarkable Eye Contact: Intense and Avoidant Mood: Angry Affect: Restricted and Flat Thought Process: Coherent Speech: Slow and Soft Insight: Intact Orientation: Person: Yes , Situation: Yes, Place: Yes and Time: Yes Intellectual Functioning: Within Normal Limits Clinical decision making/rationale: Patient brought to ED with suicidal ideations. Also reports auditory and visual hallucinations. Patient to be admitted to inpatient psychiatry for safety and evaluation. Patient is agreeable to this. Plan: Patient will be admitted to inpatient psychiatry for safety and further evaluation. Legal Status: Voluntary Discussed with: Orestes Nam AND Patient seen with: Dr. Martha Johnson, [facility] 12/26/2014, 11:30 PM Fernando Smith RN - 12/26/2014 11:25 PM CDT Report given to Anju MORA. Orestes Nam MD - 12/26/2014 11:20 PM CDT [facility] Emergency Department Sign Out Note Transfer of care from SCOTTIE Villegas and Martha Coyle MD. See their separate Emergency Department notes for further details. The patient was evaluated by the previous provider for Suicidal Ideation In brief, Mr. Lerma is a 29 y.o. old male with hx of depression. Relapsed 2d ago on meth, feeling depressed and suicidal for months. No trigger today but tonight not feeling safe at home so called the crisis line, and they told him to come here. Feeling hopeless about the relapse. Does have a rn field case manager, but says he doesn't have therapist or psychiatrist. Off of his meds for months. Awaiting DARLENE ruano, but anticipate mental health admission. Current vitals: BP 115/74 mmHg Pulse 66 Temp(Src) 97.5 ??F (36.4 ??C) (Oral) Resp 16 SpO2 99% Workup Completed: - Initial evaluation - Labs: CBC (WBC 6.6, Hgb 13.7, Plts 243), BMP (all WNL), UA (clean), UDS (presumptive positive for amphetamines) Workup Pending (follow-up): Awaiting Social Work evaluation Further Management: Patient was evaluated by social work and felt appropriate for inpatient mental health admission. Placed on the bed board. Patient remained calm and cooperative throughout the night. No further acute concerns. Patient is signed out to the day team for further management pending availability of an inpatient psychiatric bed. Disposition: Anticipate admission to Psychiatry. Signed out to the day team pending bed availability. Orestes Nam MD Emergency Medicine PGY2 Anju Petersen RN - 12/26/2014 11:19 PM CDT Received report and assumed care from Fernando MORA. Martha Coyle MD - 12/26/2014 9:14 PM CDT [facility] Emergency Department Attending Supervision Note [facility] Care under my supervision. Chief Complaint Patient presents with ??? Suicidal Patient is 29 yo male with depression who was sober until relapsed with meth x1 and feels horrible. I threw it all away. Sober for >1 year. Not sleeping. Feels suicidal but won't share plan with me. Patient Vitals for the past 12 hrs: BP Temp Temp src Pulse Resp SpO2 12/26/14 1940 138/92 mmHg - - 81 18 98 % 12/26/14 1931 141/94 mmHg 97.7 ??F (36.5 ??C) Oral 87 16 98 % Alert. Very depressed and poor eye contact and hygiene. Poor judgment. No signs of intoxication or trauma. Plan: Business Office Technician to see. Voluntary admission likely. Signed out to chairman & chief executive officer. Martha Coyle MD Fernando Smith RN - 12/26/2014 7:45 PM CDT Agree with triage note. Pt reports depression and SI, related to recent relapse into using Meth after being sober for one year. Pt states I can't do anything right, I'm not good at anything. When asked about plan r/t SI, pt states no, but I'll figure out a way, I have before. He then references anattempt one year ago, when he attempted suicide using car exhaust. He also reports eloping when being brought in for treatment here at [facility]. He states he has not been taking any medication, and alsostates he has history of multiple ECT treatments at [facility] and [facility]. A/Ox4, denies pain. Provider notified. Marlen Villegas PA-C - 12/26/2014 7:38 PM CDT [facility] Emergency Department Visit Note Chief Complaint: Chief Complaint Patient presents with ??? Suicidal History of Present Illness Patient is a 29 y.o. old male with a PMH of schizoaffective disorder, OCD, bipolar disorder who presents to the ED for evaluation of suicidal ideation. He called the crisis line marlene and they advised him to come here. He reports he doesn't feel safe. He has had suicidal ideation for months. He feels like he cannot function anymore. He states I just really wish there was no way I could . When asked if he had a plan he is stated, whatever I could take. He states he has been trying to fight off depression for weeks. He reports he is been off his medications for a long time. He has a rn field case manager through [facility]. His rn field case manager is not aware that he is not taking his medications. He states he is not taking his medications because I do not have any structure in my life. He denies having an outpatient psychiatrist or therapist. He reports the other day he thought he heard someone that was not there, so he is having auditory hallucinations. He sometimes sees people that are not there. He reports smoking half pack a day. He uses alcohol sparingly. He reports using meth once a few days ago. He was sober for over a year prior to that. He is feeling very hopeless and worthless becausehe relapsed. He reports having a recent left retinal surgery. He has poor vision in that eye and his dr is aware.He has an upcoming retinal surgery in Jan 19. No other medical concerns. No current facility-administered medications for this encounter. Current Outpatient Prescriptions Medication ??? benztropine ??? escitalopram oxalate ??? haloperidol ??? hydrOXYzine HCl ??? RISPERIDONE OR ??? traZODone No Known Allergies Past Medical History Diagnosis Date ??? Schizoaffective disorder, chronic condition with acute exacerbation Patient Active Problem List Diagnosis ??? Schizoaffective disorder ??? Ingestion of substance ??? Suicide attempt by drug ingestion ??? OCD (obsessive compulsive disorder) ??? Bipolar 1 disorder, mixed ??? Abnormal weight gain ??? Anxiety state ??? Combinations of drug dependence excluding opioid type drug, in remission ??? Depressive disorder ??? Altered mental status ??? Hypotension ??? Hypokalemia ??? Drug overdose, intentional No past surgical history on file. History Substance Use Topics ??? Smoking status: Not on file ??? Smokeless tobacco: Not on file ??? Alcohol Use: Not on file Review of Systems 10 point ROS is reviewed and negative aside from what is mentioned in HPI. Physical Exam BP 141/94 mmHg Pulse 87 Temp(Src) 97.7 ??F (36.5 ??C) (Oral) Resp 16 SpO2 98% Vital signs reviewed. Nursing notes reviewed. Physical Exam Constitutional: Well-developed, well-nourished. Nondiaphoretic. No distress. HENT: Normocephalic, atraumatic. Nose normal. Eyes: Pupils equal round reactive to light. Conjunctiva normal. No scleral icterus. EOM intact. Neck: Normal, non-tender range of motion. Supple. Cardiovascular: Regular rate and rhythm. No murmurs rubs or gallops appreciated. Radial and dorsalispedis pulses are strong and symmetric. Pulmonology/chest wall: No tenderness to palpation of chest wall. No respiratory distress. Breath sounds equal bilaterally. No wheezes, rales, or crackles noted. Abdominal: Soft, nondistended. Normal active bowel sounds. No tenderness, rebound or guarding. Musculoskeletal: Normal range of motion of all four extremities. No tenderness palpation of any extremities. No edema. Neuro: Alert and oriented x3. No cranial nerve deficits. Tone is normal. Skin: Warm and dry. No rashes. Psych: The patient is alert and dressed in hospital garb. Patient behaved in a cooperative manner during the interview. Mood: depressed. Affect is flat. He is lying on his back with poor eye contact. Speech is soft. Language use is intact. Motor: normal. Gait/Station: lying in bed. Thought processing: linear. Medical Decision Making & ED Course Patient is a 29 y.o. old male who presents to the ED for evaluation of worsening depression and suicidal ideation. She has been off his medications for a long time. He does not feel safe. Social work evaluation pending. Likely admission. Case discussed with Dr. Coyle. Patient signed out to the oncoming team pending SW eval. Diagnosis & Disposition Diagnosis: Schizoaffective disorder Bipolar disorder Meth use Marlen Villegas PA-C. Gabby Polanco RN - 12/26/2014 7:30 PM CDT Report suicidal thoughts, no specific plan. Hx of suicidal attempt in past. Minimal eye contact. denies any self harm today. documented in this encounter Plan of Treatment Upcoming Encounters Date Type Specialty Care Team Description 05/16/2022 Appointment Orthopedics Derrell Lei MD [address] [place], [place] [phone] (Wo rk) Scheduled Referrals Name Type Priority Associated Diagnoses Order S chedule Referrals already Referral Routine Once today starting now addressed / No for 1 Occurre nces additional referrals startin g 12/29/2014 needed until 5 Specialty Referral Referral Routine Ordered: 12/29/2014 Primary Care follow up Referral Routine Order ed: 12/29/2014 - [facility] [place] location documented as of this encounter Procedures Procedure Name Priority Date/Time Associated Comments Diagnosis URINE DRUGS OF ABUSE Routine 12/27/2014 1:15 AM R esults for this CONFIRMATION CDT procedure are i n the results section. RAPID DRUG PANEL, Routine 12/27/2014 1:15 AM Resu lts for this URINE (WITH CDT procedure are i n CONFIRMATION) the results section. UA CONDITIONAL UC STAT 12/27/2014 1:15 AM Resu lts for this CDT procedure are i n the results section. BASIC METABOLIC PANEL STAT 12/27/2014 12:12 Re sults for this AM CDT procedure are i n the results section. COMPLETE BLOOD STAT 12/27/2014 12:12 Results f or this COUNT-NO DIFF AM CDT procedure are in the results section. documented in this encounter Results (ABNORMAL) URINE DRUGS OF ABUSE CONFIRMATION (12/27/2014 1:15 AM CDT) Component Value Ref Test Analysis Performed Pathologis t Range Method Time At Signature Comment Confirmed by [facility] Definitive Method HOSPITAL Amphetamines Confirmed Positive NEG [facility] Confirm Amphetamine and HOSPITAL Methamphetamine (A) Specimen Anatomical Collection Method Collection Time Receive d Time (Source) Location / / Volume Laterality 12/27/2014 1:15 AM 201 5 1:22 CDT AM CDT [facility] - 12/29/2014 1:59 PM CD T Performed at [facility] , [address] [place] [id number] Martha Coyle MD LAB_1 Performing Organization Address [facility] Phon e Number [address] [address] UA CONDITIONAL UC (12/27/2014 1:15 AM CDT) athologist Signature Urine Color Yellow [facility] HOSPITAL Urine Clarity Hazy [facility] HOSPITAL Specific 1.018 1.005 - [facility] Musella,Ur 1.030 HOSPITAL pH, Urine 6.0 4.5 - 8.0 [facility] Protein, Urine Negative NEG mg/dl [facility] Glucose, Urine Negative NEG mg/dl [facility] Ketones, Urine Negative NEG mg/dl [facility] HOSPITAL Urobil, Urine <2.0 <2.0 mg/dl [facility] Bilirubin, Negative NEG [facility] Urine HOSPITAL Blood, Urine Negative NEG [facility] HOSPITAL Nitrite, Urine Negative NEG [facility] Leukocyte Negative NEG [facility] Est., Ur HOSPITAL RBC'S 1 0 - 3 /hpf [facility] HOSPITAL WBC'S 3 0 - 5 /hpf [facility] HOSPITAL Epith, Occ /hpf [facility] Mucous, Urine Present [facility] Crystals, Present [facility] Amorphous [facility]OSPITAL Specimen Anatomical Collection Method Collection Time Receive d Time (Source) Location / / Volume Laterality Urine specimen 12/27/2014 1:15 AM 2 015 1:22 (specimen) CDT AM CDT [facility] - 12/27/2014 1:38 AM CD T Performed at [facility] , [address] [place] [id number] Martha Coyle MD LAB_1 Performing Organization Address [facility] Phon e Number [address] [id number] (ABNORMAL) URINE DRUGS OF ABUSE SCREEN (WITH CONFIRMATION IF POSITIVE) (12/27/2014 1:15 AM CDT) Component Value Ref Test Analysis Performed At Patholo gist Range Method Time Signature Amphetamines Presumptive NEG [facility] Positive (A) HOSPITAL Barbiturates Negative NEG [facility] Benzodiazepines Negative NEG [facility] Cocaine Metabolite Negative NEG [facility] Methadone Negative NEG [facility] Opiates Negative NEG [facility] Oxycodone, Urine Negative NEG [facility] P.C.P. Negative NEG [facility] THC(Marijuana) Negative NEG [facility] Creatinine 199.8 mg/dL [facility] Urine,Tox HOSPITAL Specimen Anatomical Collection Method Collection Time Receive d Time (Source) Location / / Volume Laterality Urine specimen 12/27/2014 1:15 AM 015 1:22 (specimen) CDT AM CDT [facility] - 12/27/2014 2:17 AM CD T Performed at [facility] , [address] [place] [id number] Martha Coyle MD LAB_1 Performing Organization Address City/State/ZIP Code Phon e Number [address] [address] (ABNORMAL) HEMOGRAM/PLTS (12/27/2014 12:12 AM CDT) P athologist Signature WBC 6.6 4.0 - 11.0 [facility] RBC 4.81 4.5 - 5.9 [facility] Hemoglobin 13.7 13.5 - 17.5 [facility] g/dl [facility] HCT 40.2 (L) 41.0 - 53.0 [facility] MCV 83.6 80 - 100 [facility] MCH 28.5 26 - 34 pg [facility] MCHC 34.1 32 - 36 [facility] g/dl HOSPITAL RDW 12.8 11.5 - 14.5 [facility] Platelets 243 150 - 450 [facility] MPV 10.9 9.4 - 12.4 [facility] Specimen Anatomical Collection Method Collection Time Receive d Time (Source) Location / / Volume Laterality 12/27/2014 12:12 12/27/2014 AM CDT 12:21 AM CDT [facility] - 12/27/2014 12:26 AM C DT Performed at [facility] , [address] [place] [id number] Martha Coyle MD LAB_1 Performing Organization Address [facility]/ZIP [facility] Phon e Number [address] [address] BASIC METABOLIC PANEL (12/27/2014 12:12 AM CDT) athologist Signature Sodium 139 135 - 145 [facility] mmol/L [facility]OSPITAL Potassium 3.5 3.5 - 5.3 [facility] mmol/L [facility] Chloride 105 95 - 106 [facility] mmol/L [facility] CO2 25 22 - 30 [facility] mmol/L [facility] Anion Gap 9 7 - 16 [facility] (calc.) mmol/L [facility] Glucose 109 70 - 180 [facility] mg/dl [facility] Calcium 8.5 8.4 - 10.2 [facility] mg/dl [facility] BUN 10 7 - 20 [facility] mg/dl [facility] Creatinine 0.89 0.66 - [facility] 1.25 mg/dl [facility]OSPITAL GFR, Estimated >60 >60 [facility] ml/min/1.7 [facility] 3m2 GFR, Est., If >60 >60 [facility] Black ml/min/1.7 [facility] 3m2 Specimen Anatomical Collection Method Collection Time Receive d Time (Source) Location / / Volume Laterality 12/27/2014 12:12 12/27/2014 AM CDT 12:21 AM CDT Narrative [facility] - 12/27/2014 12:43 AM C DT Performed at [facility] , [address] [place] [id number] Martha Coyle MD LAB_1 Performing Organization Address [facility]/ZIP [facility] Phon e Number [address] [address] documented in this encounter Visit Diagnoses Diagnosis Schizoaffective disorder (HRC) - Primary Schizoaffective disorder, unspecified co ndition Suicidal ideation Anxiety state (HRC) Anxiety state, unspecified Bipolar 1 disorder, mixed (HRC) Bipolar I disorder, most recent episode (or current) mixed, unspecified 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, in remission (HRC) 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, in remission Schizoaffective disorder, unspecified ty pe (HRC) Bipolar disorder, unspecified (HRC) Bipolar disorder, unspecified Nondependent amphetamine or related acti ng sympathomimetic abuse, unspecified Depressive disorder Depressive disorder, not elsewhere class ified Personal history of noncompliance with m edical treatment, presenting hazards to health Anxiety state (HRC) Anxiety state, unspecified 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, in remission (HRC) 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, in remission Altered mental status Suicide attempt by drug ingestion (HRC) Poisoning by unspecified drug or medicin al substance Plan of Care - Balbina Padron - 12/29/2014 4:30 PM CDT [facility] Social Work Progress Note Data: MD and SW met w pt. Pt reports that he is stable and requests to leave. Pt reports no SI/HI/VH/AH. Pt reports he would like assistance with housing. Pt reports that he is interested in MICD. Discussed cd evaluation needed to refer to MICD tx, pt declined cd assessment. SW met w pt. SW gave pt care home resources. SW left with [employer] [facility] w pt's phone number. Pt also given information of location of [employer] drop in center and how to contact them. DARLENE reviewed that CM can assist pt in housing searches as pt meets LTH criteria. SW offered to also call [employer], pt declined and reports he can call. DARLENE reviewed that Access is at [facility] and pt given information on how to contact them. DARLENE also reviewed w pt where pt can obtain cd assessment, if needed in future. DARLENE unable to make any other IRTS referrals and/or MICD tx options as pt requested to leave and reports stable enough to leave. Per records, pt does not meet CM criteria as pt has not been admitted twice/one year. Collateral Contacts Plan: Primary Disposition: [facility] Alternative Disposition Options: [facility] Action Plan(s) in Place: Pt given resources. Barriers or Problems Identified: N/A Notified the following Staff Regarding Identified Barrier/Problem: N/A ELOS: 1 day Report completed by Balbina Padron, DENTIST ATTENDANT,COMPOSITE LAMINATOR, Pager Number --- End of Report --- Plan of Care - Gutierrez Stafford RN - 12/29/2014 3:13 PM CDT [facility] Discharge Note - Nursing Admission Date/Time: 12/26/2014 7:36 PM Attending MD: Lesia Abbasi Patient discharged: to Home. Discharge Date: 12/29/14 Discharge Time: 1501 Patient accompanied by: self . Transported by: Walked Valuables were taken home by patient: Yes Discharge instructions given and explained to patient: Yes Discharge Patient Education Plan completed, taught, and provided to patient/caregiver at discharge: Yes ?? Discussed medication risks with patient ?? Patient understands medications usage and side effects ?? Patient understands diagnosis ?? Action Plan for management of symptoms/side effects/complications requiring medical attention established and shared with patient/caregiver Was patient discharged on Warfarin? {(Do not delete line; Warfarin documentation is required) No Patients general condition on discharge: Pt is future focused, denies SI, self harm thoughts and is able to contract for safety. Pt is medically stable. Pt acknowledges discharge teaching and states understanding. Pt acknowledges receiving all belongings for discharge. All medical devices (telemetry/IV/etc) unless otherwise ordered, have been removed and stored: N/A Report Completed by: Gutierrez Stafford RN --- End of Report --- Plan of Care - Gutierrez Stafford RN - 12/29/2014 3:12 PM CDT General Plan of Care ??? Plan of Care Review Met ??? Individualization and Mutuality Met ??? Discharge Needs Assessment Met ??? Safety and Fall Prevention Met Thought Process Alteration (Adult, Obstetrics) ??? Identify Signs and Symptoms and Related Risk Factors Met [facility] Plan of Care Note Assessment: Pt isolative to room most of morning; out for meals. Out on unit waiting to see Dr thacker. Encouraged to attend groups without success. Affect appears anxious with periods of being tense and appropriate eye contact. Showered. Plan: Continue to monitor and assess. Maintain safety. Subjective: Pt brief and superficial. Denies auditory or visual hallucinations. Denies current suicidal thoughts. Admits negative thoughts yesterday; gone now. Denies pain. Denies thoughts of self harm or of harming others. States readiness for discharge. Doctor notified. Pt happy after meeting r/t upcoming discharge. Pt is future focused, denies SI, self harm thoughts and is able to contract for safety. Pt is medically stable. Pt acknowledges discharge teaching and states understanding. Pt acknowledges receiving all belongings for discharge. Declined green discharge folder. Objective: Medication compliant. --- End of Report --- Plan of Care - Balbina Padron - 12/29/2014 2:33 PM CDT [facility] Social Work Discharge Note Admission Date/Time: 12/26/2014 7:36 PM Attending MD: Lesia Abbasi Disposition: [facility] Anticipated Discharge Date/Time: 2 pm 12/29 Transportation Arrangements: Pt has car at Discharge Collateral Contact: SW left for [employer] [facility] per pt request, received verbal SUE. Legal Status at Discharge: [facility]: [place] Insurance: Medicare, Discharge letter signed? yes CD Assessment Completed: Pt refused Integrated Treatment Plan: PT Refused Safety Issues: Pt denies SI/HI/AH/VH. Discharge Summary: and DARLENE met w pt prior to d/c. (See notes). Pt verbalized understanding of d/c plan. Report completed by TEENA Sparks,COMPOSITE LAMINATOR, Pager Number --- End of Report --- Initial Assessments - Zelda Don - 12/29/2014 2:25 PM CDT [facility] Programming Discharge Summary Note Stage of Mental Health Treatment: Stage 1: Pre-Contemplation/Pre-Engagement (Engagement, Irregular or no contact with community provider, does not identify as having KS, No readiness to engage in treatment) KS Treatment Recommendations for Inpatient/Outpatient: Invite to educational group (stage 1);Refer to community provider (stage 1) Stage of Substance Use Treatment: Stage 1: Pre-Contemplation/Pre-Engagement, Engagement (Irregular or no contact with community provider, does not identify as having CD, no readiness to engage in treatment) CD Treatment Recommendations for Inpatient/Outpatient: Invite to educational group (stage 1) IM&R topics the patient was introduced to in the programming groups at [facility]: Chemical Health Education/KS/CD - IDDT: No data found. Programming Therapist/Social Work (CBT, DBT, IMR): No data found. Diagnostic Education Group:No data found. Diagnostic Education 1:1:No data found. Nursing Group:No data found. MH OT 1:1 Session: No data found. MH OT IMR, Life Skills Group: No data found. Reasons for not developing patient recovery goals during initial interview: Refused Patient was discharged to the following placement to continue with their IMR and IDDT programming: [facility]. ELOS: (not recorded) Disposition: (not recorded) Services Needed: (not recorded) Stages of Mental Health Treatment Stage 1: Pre-Contemplation/Pre-Engagement (Engagement, Irregular or no contact with community provider, does not identify as having KS, No readiness to engage in treatment) Stage 2: Contemplation/Early Persuasion (Regular contact with community provider, ambivalence about accepting treatment for KS, some readiness to consider impact of KS on quality of life, addressing needs in community has not reduced symptoms in last month) Stage 3: Preparation/Late Persuasion (Engaged in relationship with community provider, willing to participate in discussion about KS, evidence of symptom reduction for at least 2-4 weeks) Stage 4: Action/Active Treatment (Engaged in treatment, active working relationship with a communityprovider, discussed KS symptoms openly with providers, reduction in KS symptoms for 1-6 months) Stage 5: Maintenance/Relapse Prevention (Engaged in treatment, acknowledgement that psychiatric symptoms are problematic, management of KS symptoms for more than six months) Stages of Substance Use Treatment Stage 1: Pre-Contemplation/Pre-Engagement, Engagement (Irregular or no contact with community provider, does not identify as having CD, no readiness to engage in treatment) Stage 2: Contemplation/Early Persuasion (Regular contact with community provider, ambivalence about accepting treatment for CD, some readiness to consider impact of CD on quality of life, addressing needs in community has not reduced substance use in last month) Stage 3:

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
--- OUTSIDE RECORDS SUMMARY | 2022-05-10 04:13 | XMS_ITS | Encounter Summary ---
:1985 [facility] Address [address] [place] [address] Care Team Providers Name Role Phone Unassigned, Provider Primary Care Provider Unavailable Encounter Details Date Type Department Care Team Description 08/14/2007 PN Conversion Only [place] [address] [employer] [address] [place] [address] [place] [address] (Wo rk) Social History Tobacco Use Types Packs/Day Years Used Date Smoking Tobacco: Never Assessed Sex Assigned at Date Recorded Not on file documented as of this encounter Plan of Treatment Upcoming Encounters Date Type Specialty Care Team Description 05/16/2022 Appointment Orthopedics Derrell Lei MD [address] [place] [phone] (Wo rk) documented as of this encounter Procedures Procedure Name Priority Date/Time Associated Diagnosis Comme nts STREP GROUP A Routine 08/14/2007 10:52 AM Results for this ANTIGEN TEST CDT procedure are i n the results section. BETA STREP FOLLOWUP Routine 08/14/2007 10:52 AM R esults for this CDT procedure are i n the results section. documented in this encounter Results Strep Group A Antigen Test (08/14/2007 10:52 AM CDT) Analysis Performed At Patho logist Time Signature Strep Group A Negative Negative HP CONVERSION Antigen Test Comment: Culture to follow. Specimen (Source) Anatomical Collection Method Collection Time Re ceived Time Location / / Volume Laterality 08/14/2007 10:52 AM CDT Pippa Adkins MD LAB_1 Performing Organization Address City/[facility] Code Phon e Number HP CONVERSION Beta Strep Followup (08/14/2007 10:52 AM CDT) P athologist Signature Strep Screen SEE TEXT HP CONVERSION Comment: Patient: MISSY LOVE Rapid Strep Follow up Culture ? Collected: ??[id number] ??[id number] Source: Throat ?Processed: ??[id number] ??[id number] ? V Final Report ------ ?[id number] ??[id number] No beta hemolytic Strep group A isolated . Specimen (Source) Anatomical Collection Method Collection Time Re ceived Time Location / / Volume Laterality 08/14/2007 10:52 AM CDT Pippa Adkins MD LAB_1 Performing Organization Address City/[facility] Phon e Number HP CONVERSION documented in this encounter Visit Diagnoses Not on filedocumented in this encounter Care Teams Electrical Manufacturing Technician Relationship Specialty Start Date End Date Unassigned, Provider PCP - General 04/23/01 12/19/[address] [place] [id number] documented as of this encounter
--- OUTSIDE RECORDS SUMMARY | 2022-05-10 04:13 | XMS_ITS | Encounter Summary ---
:1985 Author Organization [facility] Address [address] [place] [address] Care Team Providers Name Role Phone Unassigned, Provider Primary Care Provider Unavailable Encounter Details Date Type Department Care Team Description 10/05/2010 PN Conversion Only CONVERSION CONVERSION Pippa Adkins MD [address] [place], [place] [phone] (Wo rk) Social History Tobacco Use Types [...] on filedocumented in this encounter Care Teams Magazine Keeper Relationship Specialty Start Date End Date Unassigned, Provider PCP - General 04/23/01 12/19/[address] [place] [id number] documented as of this encounter
--- OUTSIDE RECORDS SUMMARY | 2022-05-10 04:13 | XMS_ITS | Encounter Summary ---
:1985 Author Organization [facility] Address [address] [place] [address] Care Team Providers Name Role Phone Gene Laws MD Primary Care Provider Reason for Visit Reason Comments CRISIS EVALUATION--ED Encounter Details Date Type Department Care Team Description 09/02/2013 - Emergency [facility] Sherwin Henning MD Bipolar disorder (Primary Dx ); 09/03/[address] [place], [place] [address]Sherwin MD [address] [place] [address] Drug use; [place] [address] Schizoaffective disorder, un specified condition; [phone] Amphetamine and other psychostimulant dependence, unspecified; Antisocial pers onality disorder; Suicidal ideati on Social History Tobacco Use Types Packs/Day Years Used Date Smoking Tobacco: Never Assessed Sex Assigned at Date Recorded Not on file documented as of this encounter Last Filed Vital Signs Vital Sign Reading Time Taken Comments Blood Pressure 133/93 09/02/2013 9:52 PM CDT Pulse 118 09/02/2013 9:52 PM CDT Temperature 37 ??C (98.6 ??F) 09/02/2013 9:52 PM CDT Respiratory Rate 18 09/02/2013 9:52 PM CDT Oxygen Saturation 98% 09/02/2013 9:52 PM CDT Inhaled Oxygen Concentration - - Weight - - Height - - Body Mass Index - - documented in this encounter Discharge Instructions Discharge InstructionsAmparo Stout MD - 09/03/2013 12:13 AM CDT Images from the original note were not included. Bipolar Disorder: After Your Visit Your Care Instructions Bipolar disorder is an illness that causes extreme mood changes, from times of very high energy (manic episodes) to times of depression. But many people with bipolar disorder show only the symptoms of depression. These moods may cause problems with your work, school, family life, friendships, and how well you function. This disease is also called manic-depression. There is no cure for bipolar disorder, but it can be helped with medicines. Counseling may also help. It is important to take your medicines exactly as prescribed, even when you feel well. You may needlifelong treatment. Follow-up care is a luis part of your treatment and safety. Be sure to make and go to all appointments, and call your doctor if you are having problems. It's also a good idea to know your test results and keep a list of the medicines you take. How can you care for yourself at home? ?? Be safe with medicines. Take your medicines exactly as prescribed. Do not stop or change a medicine without talking to your doctor first. You and your doctor may need to try different combinations of medicines to find what works for you. ?? Take your medicines on schedule to keep your moods even. When you feel good, you may think that you do not need your medicines. But it is important to keep taking them. ?? Go to your counseling sessions. Call and talk with your counselor if you can't go to a session orif you don't think the sessions are helping. Do not just stop going. ?? Get at least 30 minutes of activity on most days of the week. Walking is a good choice. You also may want to do other things, such as running, swimming, or cycling. ?? Get enough sleep. Keep your room dark and quiet. Try to go to bed at the same time every night. ?? Eat a healthy diet. This includes whole grains, dairy, fruits, vegetables, and protein. Eat foodsfrom each of these groups. ?? Try to lower your stress. Manage your time, build a strong support system, and lead a healthy lifestyle. To lower your stress, try physical activity, slow deep breathing, or getting a massage. ?? Do not use alcohol or illegal drugs. ?? Learn the early signs of your mood changes. You can then take steps to help yourself feel better. ?? Ask for help from friends and family when you need it. You may need help with daily chores when you are depressed. When you are manic, you may need support to control your high energy levels. What should you do if someone in your family has bipolar disorder? ?? Learn about the disease and the signs that it is getting worse. ?? Remind your family member that you love him or her. ?? Make a plan with all family members about how to take care of your loved one when his or her symptoms are bad. ?? Talk about your fears and concerns and those of other family members. Seek counseling if needed. ?? Do not focus attention only on the person who is in treatment. ?? Remind yourself that it will take time for changes to occur. ?? Do not blame yourself for the disease. ?? Know your legal rights and the legal rights of your family member. Support groups or counselors can help you with this information. ?? Take care of yourself. Keep up with your own interests, such as your career, hobbies, and friends. Use exercise, positive self-talk, deep breathing, and other relaxing exercises to help lower your stress. ?? Give yourself time to grieve. You may need to deal with emotions such as anger, fear, and frustration. After you work through your feelings, you will be better able to care for yourself and your family. ?? If you are having a hard time with your feelings or with your relationship with your family member, talk with a counselor. When should you call for help? Call 911 anytime you think you may need emergency care. For example, call if: ?? You feel like hurting yourself or someone else. ?? Someone who has bipolar disorder displays dangerous behavior, and you think the person might hurthimself or herself or someone else. Call your doctor now or seek immediate medical care if: ?? You hear voices. ?? Someone you know has bipolar disorder and talks about suicide. If a suicide threat seems real, with a specific plan and a way to carry it out, stay with the person, or ask someone you trust to stay with the person, until you can get help. ?? Someone you know has bipolar disorder and: ?? Starts to give away possessions. ?? Is using illegal drugs or drinking alcohol heavily. ?? Talks or writes about , including writing suicide notes or talking about guns, knives, or pills. ?? Talks or writes about hurting someone else. ?? Starts to spend a lot of time alone. ?? Acts very aggressively or suddenly appears calm. ?? Talks about beliefs that are not based in reality (delusions). Watch closely for changes in your health, and be sure to contact your doctor if: ?? You cannot go to your counseling sessions. Where can you learn more? Go to [employer]/MyMedMatch and enter K052 in the search box. Last Revised: October 18, 2012 ?? [id number] [employer] . documented in this encounter Medications at Time of Discharge Medication Sig Dispensed Refills Start Date End Date unknown medication Indications: PN: 0 08/14/2007 benztropine (AKA Take 1 Tab by mouth 60 Tab 0 09/03/2013 10/03/2013 COGENTIN) 0.5 MG tablet two times a day for 30 days. haloperidol (AKA HALDOL) Take 1 Tab by mouth 120 Tab 0 10/03/2013 10 MG tablet 4 times a day for 30 days. benztropine (AKA Take 0.5 mg by 0 [...] documented as of this encounter ED Notes Sherwin Shore MD - 09/03/2013 11:58 PM CDT [facility] Emergency Department Sign Out Note Transfer of care from Dr. Henning. See separate Emergency Department note. Assessment and Plan: The patient was evaluated by the previous provider for passive suicidal ideation. Not active and notholdable per social work. Stable for discharge per patient request. Disposition: Home Sherwin Henning MD - 09/03/2013 10:33 AM CDT [facility] Emergency Department Attending Supervision Note PA-C care under my supervision. Katja Guillaume RN - 09/03/2013 12:38 AM CDT [facility] ED Nursing Discharge Note Vital Signs: BP: 133/93 mmHg Temp: 98.6 ??F (37 ??C)Temp src: Oral Pulse: 118 Resp: 18 SpO2: 98 % Pain Scale (0-10): 0 Admission Date/Time: 09/02/2013 9:56 PM Attending MD: Sherwin Shore MD Patient discharged: to Home. Patient accompanied by: self. Transported by: Walked Valuables were taken home by patient: Yes Work/School Slip given: N/A Discharge instructions given and explained to patient: Yes Discharge prescriptions given and explained to patient: Yes: New Prescriptions BENZTROPINE (AKA COGENTIN) 0.5 MG TABLET Take 1 Tab by mouth two times a day for 30 days. HALOPERIDOL (AKA HALDOL) 10 MG TABLET Take 1 Tab by mouth 4 times a day for 30 days. TRAZODONE (AKA DESYREL) 100 MG TABLET Take 1 Tab by mouth at bedtime as needed for Sleep. Indications: Trouble Sleeping Patient verbalized understanding. Yes Patient level of pain on discharge: none Patients condition on discharge related to chief complaint and treatment in ED: stable ---End of Report--- Gerri German - 09/03/2013 12:24 AM CDT [facility] ED Crisis Assessment Current Diagnosis: Schizoaffective Kczbnsay=200.70, Methamphetamine Edvwcjrbce=874.40 & Antisocial Personality Wvxhjakk=810.70 Historical Diagnosis: Per Dr. Longoria from [facility] admission from 08/20/13-09/01/13: [place] I: Schizoaffective disorder, polysubstance dependence. [place] II: Antisocial personality disorder. [place] III: See medical dictation. [place] IV: Psychosocial stressors severe. [place] V: Global Assessment of Functioning currently of 32. Per Care Everywhere, the patient signed a 12 hour intent to leave request and was discharged AMA. The UTOX for his admission was positive for amphetamines. He received ECT Treatments while IP but was not discharged with medication since he left AMA. The patient was informed that he was not to drive for a week after his last ECT Treatment on 09/01/13. Narrative: The patient is a 28 yr old male who comes to the ED alone. The patient reports that he drove to the hospital for preventive maintenance. He states that he was at [facility] in July, after an overdose on his risperdal medication; he was admitted medically but eloped prior to being transferred to [facility]. The patient presents as quite manipulative; he provides limited responses that aren't completely true. When asked how we can help him in the ED, the patient said help fix my head. He reports diagnoses of major depression, schizoaffective, bipolar and said I dabble in drugs. When asked what dabgeo m eans, he states that he used methamphetamines a couple hours ago. He reports that he has been off medications for a couple days. When asked for more information, the patient states that he was just discharged from [facility] on 09/01/13. When asked if his medications were changed and if he was discharged with them, the patient reported that his medications were changed during that admission and he said they probably had prescriptions for me but I didn't take them. He had previously told this public relations writer that he had prescriptions but didn't get them filled. He had not reported that he left [facility] 09/01/13. When asked what had happened since his discharge that made him come back to the hospital, the patient said my kids mom is manipulating them. She is trying to make it so that I can't see them. When asked if he has current visitation with his kids or if there has been any recent changes, the patient said no, he doesn't currently have any visitation. When asked if anything in particular has happened, he said no, I just know that my thought processes aren't where they should be. He was unable to provide any other specific information. When asked if he had contacted [facility] since he wasjust there, he said no. The patient denies SI/HI, plan or intent. No evidence of psychosis. He reports that he sometimes hears whispers. He reports on-going methamphetamine use; last use was a couple hours before driving to the ED. When informed that we don't have any available MH beds, the patient said that it was ok, he would contact a friend. The patient appears to be homeless, he said that he has been bouncing around but he made a call to a friend and said that he can stay there. He states that he continues to see Dr. Gene Laws for psychiatry at [facility]. He denies any current Case Management or therapist. Per Chart Review, the patient is on probation through [facility]. Information from collateral (include names and phone numbers) none Does patient have legal guardian? (include names, phone numbers, and document contact with guardian)no Access to Firearms? no Trauma History: none reported Clinical Symptoms: None identified; the patient denies SI/HI, plan or intent. No evidence of psychosis. Dangerousness: Legal Issues: Probation yes, [place] no [facility], Name and Phone of MARISOL Sosa, gyjhk=[phone]. Current Stressors and Relevant History: Family/children/friends The patient reports that he is upsetthat he can't see his children but nothing has changed recently in regard to visitation. Family History: Mental Health Per Care Everywhere, the pt's father suicided. Mental Health Care: Hospitalizations [facility] from 08/20/13-09/01/13; the pt received ECT while IP and was discharged AMA on 09/01/13. Community Providers: Medication prescriber: Name: Dr. Gene Laws, Clinic: [facility], Psychiatric Medications: Intermittent Chemical use/abuse: PRIMARY DRUG(S) OF ABUSE: Methamphetamines; The patient reports that he used methamphetamines a couple hours before driving to the Hospital. INTERESTED IN PURSUING CD TX AND/OR AA? no Behavior in ED: Cooperative Mental Status: Appearance: Unremarkable Eye Contact: Variable Mood: Euthymic/neutral Affect: Flat Thought Process: Coherent and Vague Speech: Regular rate and rhythm Insight: Intact Orientation: Person: Yes , Situation: Yes, Place: Yes and Time: Yes Clinical decision making/rationale: The patient presents to the ED reporting that he is here for preventive maintenance. He denied SI, plan or intent. He is a limited historian and appears to be quite manipulative. He reported that he was just discharged from [facility] on 09/01/13 and he denies any particular stressors since discharge; he did not report that he was discharged AMA. He reports that he has been off his medications since 09/01/13 but Chart Review indicated that he has historically taken his medications only on an intermittent basis. There is a history of polysubstance abuse and the patient reports using methamphetamines a couple hours before driving to the ED. When informed that we had not available MH beds, the patient said that that was ok and he would call a friend to stay with. He was given information about [facility] Adult MH services; a referral for Crisis Stabilization was not done because the patient stated that his phone is currently turned off due to an unpaid bill. He was vague about wanting to get any specific help and wasn't interested in a CD assessment or treatment. No evidence of psychosis. The patient did not appear altered despite reporting that he had used methamphetamines. Plan: Pt will be discharged to a friends home.. Discussed with: Emmie Arana PA-C AND Patient seen with: Dr. Sherwin Shore Referrals: the pt was given information about [facility] for Adult MH. Gerri German MA,FABRIC SOURCER 09/03/2013, 12:24 AM Katja Guillaume RN - 09/03/2013 12:17 AM CDT Assuming care for Pepe RN while he is on break. Emmie Arana PA-C - 09/02/2013 11:16 PM CDT [facility] Emergency Department Visit Note Chief Complaint: CRISIS EVALUATION--ED History of Present Illness HPI 28 yo M, hx of anxiety, Bipolar DO, depression, drug abuse, OCD, schizoaffective DO. Pt brings self into ER for crisis evaluation. Pt feeling suicidal with thoughts to OD. Reports hx of OD 6 weeks ago that required hospital admission. Pt feeling he is getting close to that point again. Pt sporadically taking medications. I have a hard time dealing with the thought that I need to take medicationsfor the rest of my life, I'm stronger than that. Has been having ECT treatment in the [facility] system. Using meth and THC frequently. Upset with the mother of his children not allowing pt to see them. Has no physical complaints. Used meth today. AH of whispers. Previous Medications BENZTROPINE (AKA COGENTIN) 0.5 MG TABLET Take 0.5 mg by mouth. Take 1 tablet (0.5 mg) by mouth 2 times daily ESCITALOPRAM OXALATE (AKA LEXAPRO) 10 MG TABLET Take 10 mg by mouth. Take 1 tablet (10 mg) by mouthAt Bedtime HALOPERIDOL (AKA HALDOL) 10 MG TABLET Take 10 mg by mouth. Take 1 tablet (10 mg) by mouth 2 times daily HYDROXYZINE HCL (AKA ATARAX) 50 MG TABLET Take 50-100 mg by mouth. Take 1-2 tablets (50-100 mg) by mouth every 4 hours as needed (Anxiety) RISPERIDONE OR Allergies: Review of patient's allergies indicates no known allergies. Patient Active Problem List Diagnosis ??? Schizoaffective disorder ??? Ingestion of substance ??? Suicide attempt by drug ingestion ??? OCD (obsessive compulsive disorder) ??? Bipolar 1 disorder, mixed ??? Abnormal weight gain ??? Anxiety state ??? Combinations of drug dependence excluding opioid type drug, in remission ??? Depressive disorder ??? Altered mental status ??? Hypotension ??? Hypokalemia ??? Drug overdose, intentional History Substance Use Topics ??? Smoking status: Not on file ??? Smokeless tobacco: Not on file ??? Alcohol Use: Not on file Review of Systems Psychiatric/Behavioral: Positive for suicidal ideas, hallucinations, dysphoric mood and decreased concentration. Negative for self-injury. The patient is nervous/anxious. All other systems reviewed and are negative. Physical Exam Vital signs: BP 133/93 Pulse 118 Temp(Src) 98.6 ??F (37 ??C) (Oral) Resp 18 SpO2 98% Physical Exam Vitals reviewed. Constitutional: He is oriented to person, place, and time. He appears well- developed and well-nourished. No distress. HENT: Head: Normocephalic and atraumatic. Cardiovascular: Regular rhythm and normal heart sounds. No murmur heard. Tachycardic, 112 Pulmonary/Chest: Effort normal and breath sounds normal. No respiratory distress. Neurological: He is alert and oriented to person, place, and time. Skin: Skin is warm and dry. Psychiatric: Good eye contact Normal rate and tone of speech Does not appear psychotic or paranoid Intact judgment and insight Medical Decision Making & ED Course 28yo M, hx of anxiety, Bipolar DO, depression, drug abuse, OCD, schizoaffective DO. Here stating he is feeling like he is losing control and needing to be admitted. Sporadically taking medication and does not like the thought of needing to take medications. Cont to abuse street drugs; meth and THC. Ptis tachycardic, but using meth today. No CP, sob. Will ask to see. I dont not know if pt would benefit from inpt care since he is not interested inmedications. Pt will be signed out night staff pending alden. Diagnosis & Disposition Diagnosis: 1. Depression 2. Polysubstance abuse Dispo: pending DARLENE ruano. Amparo Stout MD - 09/02/2013 11:12 PM CDT [facility] Emergency Department Sign Out Note Transfer of care from Emmie Arana PA-C at 11:12 PM. See separate Emergency Department note. The patient was evaluated by the previous provider for feeling anxious and depressed. He has historyof bipolar disorder, anxiety and depression. He has also been using meth and marijuana. He uses an e-cigarette to use these drugs in public. He is feeling passively suicidal but here for preventative m aintenance. Awaiting social services assistant evaluation. Workup Completed: No results found for this or any previous visit (from the past 24 hour(s)). Workup Pending (follow-up): ?? SW evaluation Disposition: Pending Shift Update: Patient was evaluated by the social services assistant. Please see their note for further details of their assessment. He was given resources [facility] adult mental health services and he was not interested inchemical dependency treatment. He did not want to stay in the emergency department as the wait for an inpatient psychiatric bed is going to be quite long. He is not holdable at this point and as he requested discharge, he was sent home with a friend. Discharged in stable condition. Diagnoses: 1. Bipolar disorder 2. Drug use 3. Schizoaffective disorder, unspecified condition 4. Amphetamine and other psychostimulant dependence, unspecified 5. Antisocial personality disorder Mervat Villatoro RN - 09/02/2013 9:46 PM CDT I was here a month to a month and a half ago for overdosing on my meds and I ran from here... I feel it getting to that point again. Denies being suicidal at this time. this is preventative maintenance... I'm not to that point yet. Denies HI. Reports frequent auditory hallucinations, last being 2 days ago. Describes as whispers. Reports history of PTSD, major depressive disorder, bipolar disorder, schizoaffective disorder. Admits to not taking medications on regular basis. documented in this encounter Miscellaneous Notes Media - [facility], PROVIDER - 09/02/2013 12:00 AM CDT documented in this encounter Plan of Treatment Upcoming Encounters Date Type Specialty Care Team Description 05/16/2022 Appointment Orthopedics Derrell Lei MD [address] [phone] (Wo rk) documented as of this encounter Visit Diagnoses Diagnosis Bipolar disorder ([facility]) - Primary Bipolar disorder, unspecified Drug use Other, mixed, or unspecified nondependen t drug abuse, unspecified Schizoaffective disorder, unspecified co ndition Amphetamine and other psychostimulant de pendence, unspecified Antisocial personality disorder ([facility]) Antisocial personality disorder Suicidal ideation documented in this encounter Care Teams Signals Intelligence Analysis Manager Relationship Specialty Start Date End Date Gene Laws MD PCP - General Psychiatry 09/02/13 12/25/[address] [place] [address] [address] [place] [address] documented as of this encounter
--- OUTSIDE RECORDS SUMMARY | 2022-05-10 04:13 | XMS_ITS | Encounter Summary ---
:1985 Author Organization [facility] Address [address] [place] [address] Care Team Providers Name Role Phone Meng Conner MD Primary Care Provider Unavailable Reason for Referral Consult/Transfer Care (Routine) - New Request Specialty Diagnoses / Procedures Referred By Contact Refer red To Contact Diagnoses Right knee pain, unspecified chronicity Franco Juares MD [address] [facility] [place] [address] Referral ID Status Reason Start Date Expiration Date Visits V isits Requested Authorized [id number] New Request 11/13/2021 02/12/2023 1 1 Scheduling Instructions Your provider has recommended an appoint ment with [facility]. You can quickly make your appointment online at [facility]/schedule. You can also call [phone] for help scheduling yo ur appointment. We suggest you call your health insurance company about your cove rage and benefits for this appointment. Procedure/Equipment (Routine) - Incomplete Specialty Diagnoses / Procedures Referred By Contact Refer red To Contact Diagnoses Right knee pain, unspecified chronicity Franco Juares MD Procedures XR Knee Lt 1-2 Views Comparison [address] [facility] [place] [address] Referral ID Status Reason Start Date Expiration Date Visits V isits Requested Authorized [id number] Incomplete 11/13/2021 02/12/2023 1 1 Procedure/Equipment (Routine) - Incomplete Specialty Diagnoses / Procedures Referred By Contact Refer red To Contact Diagnoses Right knee pain, unspecified chronicity Franco Juares MD Procedures XR Knee Rt 3 Views [address] [facility] [address] [place] [address] Referral ID Status Reason Start Date Expiration Date Visits V isits Requested Authorized [id number] Incomplete 11/13/2021 02/12/2023 1 1 Reason for Visit Reason Comments CONSULT Encounter Details Date Type Department Care Team Description 11/13/2021 [place] [facility] [place] Righ t knee pain, Orthopedic Urgent MD unspecified Care [address] [facility] chronicity (Primary [address] [facility] [address] [place] [address]) [place], [place] [phone] (Wo rk) Social History Tobacco Use Types Packs/Day Years Used Date Smoking Tobacco: Unknown Alcohol Use Standard Drinks/Week Comments No 0 (1 standard drink = 0.6 oz pure alcoho l) Sex Assigned at Date Recorded Not on file documented as of this encounter Last Filed Vital Signs Vital Sign Reading Time Taken Comments Blood Pressure - - Pulse - - Temperature 36.2 ??C (97.2 ??F) 11/13/2021 8:34 AM CDT Respiratory Rate - - Oxygen Saturation - - Inhaled Oxygen Concentration - - Weight 72.6 kg (160 lb) 11/13/2021 8:34 AM CDT Height 172.7 cm (5' 8) 11/13/2021 8:34 AM CDT Body Mass Index 24.33 11/13/2021 8:34 AM CDT documented in this encounter Patient Instructions Patient InstructionsRegina Frye MA - 11/13/2021 9:12 AM CDT Sports & Orthopedic Medicine [facility] [place] Please fax all paperwork correspondence to [phone] [facility] Nurse Line: [phone] Please contact Acute Injury Clinic Nurse line for all requests and questions. Medication Requests: Prescriptions are not filled on Weekends or on Weekdays after 3:00PM For all medication refills: Request a refill using [employer] or contact your Pharmacy To schedule appointments: [phone] Medical records: [phone] (option 4) Radiology records: [phone] [facility] Worker's Compensation Services E-mail Address: [email or web address] There was the question of ligamentous issues at the time of your injury. Dr Roger German was your previous orthopedics provider. [place] seeing if he is still in the [facility] system. We can also refer you to an orthopedics provider with us. Dr Choudhury referral placed Wear your knee brace documented in this encounter Progress Notes Franco Juares MD - 11/13/2021 8:30 AM CDT Dictated using medical coding specialist software. There may be kiss setter hand abnormalities. HPI: Landon Lerma is a 36 y.o. male who presents for Chief Complaint Patient presents with ??? CONSULT He has a history of a previous femoral fracture with IM mylene placement in 2014. Over the past few weeks and days he has had a worsening and right knee pain. He describes he feels like something is torn laterally. He will also have paresthesia type sensations along his anterior leg. Allergies: No Known Allergies OBJECTIVE: Vitals: Temp 36.2 ??C (97.2 ??F) Ht 1.727 m (5' 8) Wt 72.6 kg (160 lb) BMI 24.33 kg/m?? General: Alert. Well appearing. No acute distress. Left knee: No erythema edema ecchymosis or increased warmth. Palpable screw of over the lateral knee, he is most tender over this area. Full extension and strength with this. Xray: I independently reviewed and interpreted the imaging studies. IMPRESSION COMPARISON: None. ?? FINDINGS: Three views were obtained of the right knee. 2 views of the left knee for comparison purposes. ?? Intramedullary mylene with distal interlocking screw partially visualized in the distal femur. There ischronic deformity of the distal femoral shaft. The hardware is intact where seen. The joint spaces of the right knee are preserved. No malalignment. No joint effusion. ?? Well corticated small ossicle just medial to the left medial femoral condyle could be sequela of prior injury or other nonspecific soft tissue ossification. ASSESSMENT/PLAN: Landon was seen today for consult. Diagnoses and all orders for this visit: Right knee pain, unspecified chronicity - XR Knee Rt 3 Views; Future - XR Knee Lt 1-2 Views Comparison; Future - Orthopaedic Consult Adult/Peds - Brandon Knee hinged brace(1820) He is a 36-year-old who has had acute worsening chronic knee pain. He has not had any new trauma. Inin EMR review (the discharge summary for the 02/22/2015 admission) it looks like Dr. Roger German inthe [facility] system did his femur IM myelne placement. The patient was also recommended to see Dr. Mitchell due to a multi ligamentous injury however I am not sure if he ever followed up for this. We reviewed x-rays today and although I do not have any previous comparison views I am not convincedthat there is any displacement of his right thigh and knee hardware. Since I am not sure if Dr. German his still in the [facility] system we will have him follow-up with [facility] for further discussion. The patient did ask for a supportive knee brace and a hinged knee brace was provided. He can follow-up with us as needed in the acute injury clinic. Dictated using medical coding specialist software. There may be kiss setter hand abnormalities. Franco Juares MD 11/13/2021 documented in this encounter Plan of Treatment Upcoming Encounters Date Type Specialty Care Team Description 05/16/2022 Appointment Orthopedics Derrell Lei MD [address] [place] [phone] (Wo rk) Scheduled Referrals Name Type Priority Associated Diagnoses Order S chedule Orthopaedic Consult Referral Routine Right knee pain, Orde red: 11/13/2021 Adult/Peds unspecified chronicity documented as of this encounter Results XR Knee Lt 1-2 [...] Right knee pain, unspecified chronicity - Primary Right knee pain, unspecified chronicity Right knee pain, unspecified chronicity documented in this encounter Care Teams Pharmaceutical Sales Specialist Relationship Specialty Start Date End Date Meng Conner MD PCP - General 02/03/[address] [facility], [address] documented as of this encounter
--- OUTSIDE RECORDS SUMMARY | 2022-05-10 04:13 | XMS_ITS | Encounter Summary ---
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 documented in this encounter Care Teams Director Of Agriculture Relationship Specialty Start Date End Date No Primary/Referring, Phy PCP - General 07/20/13 documented as of this encounter
--- OUTSIDE RECORDS SUMMARY | 2022-05-10 04:13 | XMS_ITS | Encounter Summary ---
:1985 Author Organization [facility] Address [address] [place] [address] Care Team Providers Name Role Phone Mneg Conner MD Primary Care Provider Unavailable Reason for Visit Reason Comments Rash Encounter Details Date Type Department Care Team Description 12/20/2010 Emergency [facility] Demarcus Mccoy, He rpes zoster; Center Herpes zoster without mention of complic ation [address] [facility] [address] [address] [facility] [phone] [place] [address] (Wo rk) Social History Tobacco Use Types Packs/Day Years Used Date Smoking Tobacco: Never Assessed Sex Assigned at Date Recorded Not on file documented as of this encounter Last Filed Vital Signs Vital Sign Reading Time Taken Comments Blood Pressure 124/85 12/20/2010 8:35 PM CDT Pulse - - Temperature 36.8 ??C (98.2 ??F) 12/20/2010 8:35 PM CDT Respiratory Rate 18 12/20/2010 8:35 PM CDT Oxygen Saturation 98% 12/20/2010 8:35 PM CDT Inhaled Oxygen Concentration - - Weight - - Height - - Body Mass Index - - documented in this encounter Medications at Time of Discharge Medication Sig Dispensed Refills Start Date End Date unknown medication Indications: PN: 0 08/14/2007 acyclovir (aka ZOVIRAX) Take 1 tablet by 40 tablet 0 201012/30/2010 tablet mouth 4 times daily for 10 days. predniSONE (aka Take 2 tablets by 12 tablet 0 12/20/2010 DELTASONE) tablet mouth daily (every 24 hours) for 6 days. Take with food. documented as of this encounter Progress Notes Sue SherAPRIL - 12/20/2010 9:49 PM CDT This Bag Machine Tender was asked by the Physician to see if the patient would be able to get his prescriptions filled at [facility] as his shingles condition necessitates ongoing treatment as such. I contacted the O/P Pharmacist and she agreed to have him sign a promissory note with his prescriptions. Patient discharged to his home with his medications in hand. documented in this encounter ED Notes Bennie Ponce RN - 12/20/2010 9:49 PM CDT BP 124/85 Temp(Src) 36.8 ??C (98.3 ??F) (Oral) Resp 18 SpO2 98% 1st dose of antivirals and steroids given in EC. Reassured pt on self care. Verbalized an understanding of home care instructions. Will use ice packs and calamine lotion PRN. Will take meds as perscribed. Demarcus Mccoy MD - 12/20/2010 12:00 PM CDT ED Provider Notes signed by Demarcus Mccoy MD at 12/31/102232 Author: Demarcus Mccoy MD Service: (none) Author Type: Physician Filed: 12/31/102232 Note Time: 12/20/102221 Status: Signed Thread Checker: Demarcus Mccoy MD (Physician) NAME: MISSY LOVE MR#: [id number] CSN: [id number] AUTHENTICATING CLINICIAN: Demarcus Mccoy MD CONFIRM #: [id number] LOC: 1 EMERGENCY CENTER REPORT DATE OF SERVICE: 12/20/2010 DATE OF : 1985 CHIEF COMPLAINT: Painful rash. HISTORY OF PRESENT ILLNESS: This 25-year-old male presents to the emergency department complaining of a painful rash that started between his shoulder blades a few days ago. The patient stated that 2 days ago he had a couple of small red bumps and these have been increasing in size and are quite painful. There is now a circular area approximately 2 inches in diameter between the shoulder blades that is quite painful. He has not noticed rash anywhere else on his body. Never had an episode like this before. He has been under a fair amount of stress lately because of economic concerns. He is not currently being treated for HIV or cancer. REVIEW OF SYSTEMS: See HPI. All other systems are negative. PAST MEDICAL HISTORY: No chronic conditions. MEDICATIONS: None. ALLERGIES: None. SOCIAL HISTORY: Patient just started a new job and does not currently have health insurance. PHYSICAL EXAM: VITAL SIGNS: Temperature is 98.3, respirations 18, blood pressure 124/85, pulse ox 98% on room air. GENERAL: This is a very pleasant heavily tattooed 25-year-old white male who is resting comfortably on the gurney, he is not in respiratory distress. Head: Normal. Eyes: Normal. ENT: Normal. CARDIOVASCULAR: Normal. RESPIRATORY: Normal. SKIN: The patient has a circular area of erythema with vesicles consistent with herpes zoster. This is directly between his shoulder blades. The rash does not extend to one side or the other. There is no hyperesthesia of the skin. NEUROLOGIC: Normal. EMERGENCY DEPARTMENT COURSE: The patient was given his first dose of acyclovir and prednisone here in the emergency department. He expressed concern about being able to pay for his prescriptions. ironworker apprentice was contacted. Sue Sher advised the patient that he could add the medications to his bill. The patient was advised of the risk of postherpetic neuralgia if he does not take his medicines. Patient was then discharged to home. IMPRESSION: Herpes zoster. DISPOSITION: Patient will be discharged home with information from [facility]. He got prescriptions for acyclovir and prednisone. He is to follow up with us primary care doctor within 5-7 days. SFM:TRACIE C: CONFIRM #: [id number] documented in this encounter Miscellaneous Notes Medication History - Nakul Etienne MD - 12/20/2010 9:49 PM CDT INPATIENT MEDS Encounter Date: 12/20/10 acyclovir (ZOVIRAX) 400 mg tablet Start Date:12/20/10, End Date:12/30/10, Frequency:4 TIMES DAILY *No Administrations Recorded predniSONE (DELTASONE) 20 mg tablet Start Date:12/20/10, End Date:12/26/10, Frequency:DAILY *No Administrations Recorded acyclovir (ZOVIRAX) capsule 800 mg Start Date:12/20/10, End Date:12/20/10, Frequency:ONCE Taken Dose Action User Route Site Recorded Comment Reason 12/20/10 214 800 mg Given Bennie Ponce RN Oral - 12/20/102144 - - predniSONE (DELTASONE) tablet 60 mg Start Date:12/20/10, End Date:12/20/10, Frequency:ONCE Taken Dose Action User Route Site Recorded Comment Reason 12/20/102142 60 mg Given Bennie Ponce RN Oral - 12/20/102143 - - documented in this encounter Plan of Treatment Upcoming Encounters Date Type Specialty Care Team Description 05/16/2022 Appointment Orthopedics Derrell Lei MD [address] [place], [place] [address] (Wo rk) documented as of this encounter Visit Diagnoses Diagnosis Herpes zoster without mention of complic ation Triage Assessment Note - Kelly Moreno RN - 12/20/2010 8:38 PM CDT 2 days ago noted a couple of small reddened bumps in between scapula. Increasing in size and painful. Now a circular area of approximately 2 x 2 . No drainage. No where else on body. No known exposure. documented in this encounter Care Teams Meeting Coordinator Relationship Specialty Start Date End Date Meng Conner MD PCP - General 12/20/10 07/19/[address] [facility], [address] documented as of this encounter
--- OUTSIDE RECORDS SUMMARY | 2022-05-10 04:13 | XMS_ITS | Encounter Summary ---
:1985 Author Organization [facility] Address [address] [place] [address] Care Team Providers Name Role Phone Unassigned, Provider Primary Care Provider Unavailable Encounter Details Date Type Department Care Team Description 08/15/2006 PN Conversion Only [place] [address] [place] [address] Social History Tobacco Use Types Packs/Day Years Used Date Smoking Tobacco: Never Assessed Sex Assigned at Date Recorded Not on file documented as of this encounter Last Filed Vital Signs Vital Sign Reading Time Taken Comments Blood Pressure 129/80 08/15/2006 5:44 PM CDT Pulse 76 08/15/2006 5:44 PM CDT Temperature 36.4 ??C (97.5 ??F) 08/15/2006 5:44 PM ORAL C: 3 6.4 C CDT Respiratory Rate 20 08/15/2006 5:44 PM CDT Oxygen Saturation - - Inhaled Oxygen Concentration - - Weight - - Height - - Body Mass Index - - documented in this encounter Plan of Treatment Upcoming Encounters Date Type Specialty Care Team Description 05/16/2022 Appointment Orthopedics Derrell Lei MD [address] [place] [address] (Wo rk) documented as of this encounter Visit Diagnoses Not on filedocumented in this encounter Care Teams Fire Equipment Repairer Inspector Relationship Specialty Start Date End Date Unassigned, Provider PCP - General 04/23/01 12/19/10 [address] [place] [address] documented as of this encounter
--- OUTSIDE RECORDS SUMMARY | 2022-05-10 04:13 | XMS_ITS | Encounter Summary ---
:1985 Author Organization [facility] Address [address] [place] [address] Care Team Providers Name Role Phone Unassigned, Provider Primary Care Provider Unavailable Encounter Details Date Type Department Care Team Description 12/19/2005 PN Conversion Only [place] [address] [address] [place] [address] Social History Tobacco Use Types Packs/Day Years Used Date Smoking Tobacco: Never Assessed Sex Assigned at Date Recorded Not on file documented as of this encounter Plan of Treatment Upcoming Encounters Date Type Specialty Care Team Description 05/16/2022 Appointment Orthopedics Derrell eLi MD [address] [place] [address] (Wo rk) documented as of this encounter Visit Diagnoses Not on filedocumented in this encounter Care Teams Threat Analyst Relationship Specialty Start Date End Date Unassigned, Provider PCP - General 04/23/01 12/19/10 [address] [place] [address] documented as of this encounter
--- OUTSIDE RECORDS SUMMARY | 2022-05-10 04:13 | XMS_ITS | Encounter Summary ---
:1985 Author Organization [facility] Address [address] [address] Care Team Providers Name Role Phone Unassigned, Provider Primary Care Provider Unavailable Encounter Details Date Type Department Care Team Description 12/19/2005 Office Visit [facility] [place] [address] [address] [place] [address] [place] [address] [place], [place] [phone] (Wo rk) Social History Tobacco Use Types Packs/Day Years Used Date Smoking Tobacco: Never Assessed Sex Assigned at Date Recorded Not on file documented as of this encounter Last Filed Vital Signs Vital Sign Reading Time Taken Comments Blood Pressure 127/68 12/19/2005 3:21 PM CDT Pulse 73 12/19/2005 3:21 PM CDT Temperature 36.8 ??C (98.2 ??F) 12/19/2005 3:21 PM CDT C: 36 .8 C Respiratory Rate 16 12/19/2005 3:21 PM CDT Oxygen Saturation - - Inhaled Oxygen Concentration - - Weight - - Height - - Body Mass Index - - documented in this encounter Progress Notes Lourdes Sarabia MD - 12/19/2005 12:01 AM CDT Progress Notes signed by Lourdes Sarabia MD at 01/26/06 1301 Author: Lourdes Sarabia MD Service: (none) Author Type: Physician Filed: 09/23/10 1316 Note Time: 12/19/05 0001 Status: Signed Cushion Cover Inspector: Lourdes Sarabia MD (Physician) NAME: MISSY LOVE MR: [id number] ACCT: [id number] VISIT: [id number] DICTATING CLINICIAN: LOURDES SARABIA MD JOB: [id number] CLINIC PROGRESS NOTE DATE OF VISIT: 12/19/2005 SUBJECTIVE: Chief Complaint: Eyelid infection. HPI: This pleasant 20-year-old comes in today complaining of an eyelid infection. Apparently, patient got something in his eye yesterday, and he got it out and his eye is feeling fine, but then he noticed that his upper eyelid on the left-side started to get very swollen. He tried to pinch it today, and a little bit of discharge came out, and now it is very red and swollen. He says it is so painful he cannot take it anymore. He does not have any fevers or chills. His vision is intact. PAST MEDICAL HISTORY: None. PAST SURGICAL HISTORY: None. MEDICATIONS: None. ADR/ALLERGIES: NONE. SOCIAL HISTORY: Patient is a smoker. OBJECTIVE: VS: BP: 127/68. T: 98.2. P: 73. R: 15. Vision: 20/20 on the left, and 20/13 on the right. GENERAL: Alert and oriented. No apparent distress. Extraocular muscles are intact. Pupil equal round and reactive to light accommodation. Conjunctivitis is not present. Patient's left upper eyelid is swollen. There is an area of fluctuance, but there is no evident area where I can see that I can open this up. There is no evidence where if things have come to a head. It is mildly swollen and erythematous. LUNGS: Clear. HEART: Regular. ASSESSMENT: Blepharitis. Possible early stye, left upper eyelid. PLAN: 1. Keflex 500 mg 3 times a day. 2. Tylenol #3, once every 6 hours for pain, ? #15. 3. Patient has a follow up appointment with ophthalmology in approximately 2 days. Patient really wanted me to vincenzo the area, but I was not able to really see an area where we could vincenzo it and drain anything out. I just think, generally, it is swollen and red. I told him to just put hot packs on it, to not squeeze it anymore, as I think he is somewhat irritating it. He understands and will follow up with ophthalmology. He certainly can work. [id number] C: 12/20/05 13:59 DOCUMENT: [id number] documented in this encounter Plan of Treatment Upcoming Encounters Date Type Specialty Care Team Description 05/16/2022 Appointment Orthopedics Derrell Lei MD [address] [place] [phone] (Wo rk) documented as of this encounter Visit Diagnoses Not on filedocumented in this encounter Care Teams Mini Shifter Relationship Specialty Start Date End Date Unassigned, Provider PCP - General 04/23/01 12/19/[address] [place] [id number] documented as of this encounter
--- OUTSIDE RECORDS SUMMARY | 2022-05-10 04:13 | XMS_ITS | Encounter Summary ---
:1985 Author Organization [facility] Address [address] [place] [address] Care Team Providers Name Role Phone Unassigned, Provider Primary Care Provider Unavailable Encounter Details Date Type Department Care Team Description 08/15/2006 PN Conversion Only [place] [address] [address] [place] [address] Social History Tobacco Use Types Packs/Day Years Used Date Smoking Tobacco: Never Assessed Sex Assigned at Date Recorded Not on file documented as of this encounter Plan of Treatment Upcoming Encounters Date Type Specialty Care Team Description 05/16/2022 Appointment Orthopedics Derrell Lei MD [address] [place] [address] (Wo rk) documented as of this encounter Visit Diagnoses Not on filedocumented in this encounter Care Teams Regulator Assembler Relationship Specialty Start Date End Date Unassigned, Provider PCP - General 04/23/01 12/19/10 [address] [place] [address] documented as of this encounter
--- OUTSIDE RECORDS SUMMARY | 2022-05-10 04:13 | XMS_ITS | Encounter Summary ---
:1985 Author Organization [facility] Address [address] [place] [address] Care Team Providers Name Role Phone Unassigned, Provider Primary Care Provider Unavailable Encounter Details Date Type Department Care Team Description 12/26/[address] [facility] [address] Sue Rowley MD Health Testing [address] [place] [address] [place] [address] [place] [address] (Wo rk) Social History Tobacco Use Types [...] on filedocumented in this encounter Care Teams Wash Operator Relationship Specialty Start Date End Date Unassigned, Provider PCP - General 04/23/01 12/19/[address] [place] [address] documented as of this encounter
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
--- OUTSIDE RECORDS SUMMARY | 2022-05-10 04:13 | XMS_ITS | Encounter Summary ---
:1985 Author Organization [facility] Address [address] [place] [address] Care Team Providers Name Role Phone Unassigned, Provider Primary Care Provider Unavailable Encounter Details Date Type Department Care Team Description 12/26/2004 PN Conversion Only CANE PUSHER [address] [place] [address] Social History Tobacco Use Types Packs/Day Years Used Date Smoking Tobacco: Never Assessed Sex Assigned at Date Recorded Not on file documented as of this encounter Plan of Treatment Upcoming Encounters Date Type Specialty Care Team Description 05/16/2022 Appointment Orthopedics Derrell Lei MD [address] [place] [address] (Wo rk) documented as of this encounter Visit Diagnoses Not on filedocumented in this encounter Care Teams Sole Rounder Relationship Specialty Start Date End Date Unassigned, Provider PCP - General 04/23/01 12/19/[address] [place] [address] documented as of this encounter
--- OUTSIDE RECORDS SUMMARY | 2022-05-10 04:13 | XMS_ITS | Encounter Summary ---
:1985 Author Organization [facility] Address [address] [place] [address] Care Team Providers Name Role Phone No Primary/Referring, Phy Primary Care Provider Unavailable Reason for Visit Reason Comments FOLLOW-UP,HOSPITAL Encounter Details Date Type Department Care Team Description 12/30/2014 Telephone NE8 Aarti Conway RN FOLLOW-UP,[id number] [place] [address] [phone] (Wo rk) Social History Tobacco Use Types [...] on filedocumented in this encounter Care Teams Radius Grinder Relationship Specialty Start Date End Date No Primary/Referring, Miranda PCP - General 12/26/14 documented as of this encounter
--- OUTSIDE RECORDS SUMMARY | 2022-05-10 04:13 | XMS_ITS | Encounter Summary ---
:1985 Author Organization [facility] Address [address] [place] [address] Care Team Providers Name Role Phone Meng Conner MD Primary Care Provider Unavailable Reason for Visit Procedure/Equipment (Routine) - Incomplete Specialty Diagnoses / Procedures Referred By Contact Refer red To Contact Diagnoses Right knee pain, unspecified chronicity Franco Juares MD Procedures XR Knee Rt 3 Views [address] [place] [address] Referral ID Status Reason Start Date Expiration Date Visits V isits Requested Authorized [id number] Incomplete 11/13/2021 02/12/2023 1 1 Encounter Details Date Type Department Care Team Description 11/13/2021 Ancillary Franco Forman Right kn ee pain, Procedure Specialty Center - MD Geovanna unspecified Radiology [address] chronicity [address] [place] [address] [phone] Social History Tobacco Use Types Packs/Day Years [...] Date/Time Associated Diagnosis Comme nts XR KNEE RT 3 VIEWS STAT 11/13/2021 8:55 AM Right knee pain, Results for this CDT unspecified procedure are i n chronicity [...] injury or other nonspecific soft tissue ossification. Frnaco Juares MD RAD GD XR Knee Rt [...] chronicity documented in this encounter Care Teams Snow Ranger Relationship Specialty Start Date End Date Meng Conner MD PCP - General 02/03/[address] [facility], [address] documented as of this encounter
--- OUTSIDE RECORDS SUMMARY | 2022-05-10 04:14 | XMS_ITS | Encounter Summary ---
:1985 Author Organization [facility] Address [address] [place] [address] Care Team Providers Name Role Phone Unavailable Primary Care Provider Unavailable Encounter Details Date Type Department Care Team Description 09/24/2000 Office Visit HOSPITALIST PROGRAM Carlos, CELLULITIS NOS; [address] [place] MD Vivek ASTHMA W/O STATUS ASTHMATICUS; [address] [place] [address] [place] [address] [facility] N [id number] Social History Tobacco Use Types Packs/Day Years Used Date Smoking Tobacco: Never Assessed Sex Assigned at Date Recorded Not on file documented as of this encounter Plan of Treatment Upcoming Encounters Date Type Specialty Care Team Description 05/16/2022 Appointment Orthopedics Derrell Lei MD [address] [place] [address] (Wo rk) documented as of this encounter Visit Diagnoses Diagnosis Cellulitis and abscess of unspecified si te Unspecified asthma(493.90) (C) Unspecified asthma Hypopotassemia documented in this encounter
--- OUTSIDE RECORDS SUMMARY | 2022-05-10 04:14 | XMS_ITS | Encounter Summary ---
:1985 Author Organization [facility] Address [address] [place] [address] Care Team Providers Name Role Phone No Primary/Referring, Phy Primary Care Provider Unavailable Encounter Details Date Type Department Care Team Description 04/11/2001 Orders Only Cj Fox MD [address] [place], [place] [address] [place] [address] (Wo rk) Social History Tobacco Use Types Packs/Day Years Used Date Smoking Tobacco: Never Assessed Sex Assigned at Date Recorded Not on file documented as of this encounter Plan of Treatment Upcoming Encounters Date Type Specialty Care Team Description 05/16/2022 Appointment Orthopedics Derrell Lei MD [address] [place] [address] (Wo rk) documented as of this encounter Procedures Procedure Name Priority Date/Time Associated Comments Diagnosis DIFFERENTIAL Waiting 04/11/2001 7:35 AM Results f or this MANAGER FUNCTIONAL procedure are i n the results section. COMPLETE BLOOD Waiting 04/11/2001 7:35 AM Results for this COUNT-NO DIFF MANAGER FUNCTIONAL procedure are in the results section. documented in this encounter Results DIFFERENTIAL (04/11/2001 7:35 AM MANAGER FUNCTIONAL) P athologist Signature PMN/Band 65 43 - 72 % [facility] Lymph 21 17 - 43 % [facility] Lucas 8 4 - 12 % [facility] Eos 5 0 - 8 % [facility] Baso 1 0 - 1 % [facility] Neutrophil 5.3 1.8 - 8.0 [facility] Absolute k/ul Lymph Absolute 1.7 1.2 - 5.2 [facility] k/ul Lucas Absolute 0.6 0.1 - 0.7 [facility] k/ul Eos Absolute 0.4 0.0 - 0.5 [facility] k/ul Baso Absolute 0.1 0.0 - 0.2 [facility] k/ul Specimen Anatomical Collection Method Collection Time Receive d Time (Source) Location / / Volume Laterality 04/11/2001 7:35 AM 1 7:36 MANAGER FUNCTIONAL AM MANAGER FUNCTIONAL Cj Delarosa MD LAB_1 Performing Organization Address City/[facility] Phon e Number [facility] [phone] [address] HEMOGRAM/PLTS (04/11/2001 7:35 AM MANAGER FUNCTIONAL) P athologist Signature WBC 8.2 3.6 - 11.0 [facility] k/ul RBC 5.22 4.5 - 5.9 [facility] M/ul Hemoglobin 15.8 13.5 - 17.5 [facility] g/dl HCT 45.4 41.0 - 53.0 [facility] % MCV 86.9 80 - 100 fl [facility] MCH 30.3 26 - 34 pg [facility] MCHC 34.8 32 - 36 % [facility] RDW 13.1 11.5 - 14.5 [facility] % Platelets 354 150 - 450 [facility] k/ul Specimen Anatomical Collection Method Collection Time Receive d Time (Source) Location / / Volume Laterality 04/11/2001 7:35 AM 1 7:36 MANAGER FUNCTIONAL AM MANAGER FUNCTIONAL Cj Delarosa MD LAB_1 Performing Organization Address [facility] Phon e Number [facility] [phone] [address] documented in this encounter Visit Diagnoses Not on filedocumented in this encounter Care Teams Contract Technical Writer Relationship Specialty Start Date End Date No Primary/Referring, Phy PCP - General 12/26/14 documented as of this encounter
--- OUTSIDE RECORDS SUMMARY | 2022-05-10 04:14 | XMS_ITS | Encounter Summary ---
:1985 Author Organization [facility] Address [address] [place] [address] Care Team Providers Name Role Phone Unassigned, Provider Primary Care Provider Unavailable Encounter Details Date Type Department Care Team Description 04/09/2001 Office Visit [facility] Cj Delarosa, NONSP ECIF SKIN ERUPT Medicine [facility] [address] [facility] [address] [place] [address] [place], [place] [phone] Social History Tobacco Use Types Packs/Day Years Used Date Smoking Tobacco: Never Assessed Sex Assigned at Date Recorded Not on file documented as of this encounter Progress Notes Cj Delarosa - 04/09/2001 12:00 AM CSTS: The patient reports that since 04/02/01 he has had an occasionally pruritic rash. The area of involvement includes his upper extremities, back, chest, abdomen, and lower extremities with patient reporting that the rash is worsening. He tells me he is generally healthy. He's on no prescription or oubg-iki-gbbiwsf medications and he denies use of street drugs. He reports that he works in [employer] and has not been exposed to dust or chemicals. The patient has a dog and two cats and a snake, but these are not new pets. We discussed a long list of possible new exposures, but this was unrevealing. He denies a prior history of similar problems. O: BP: 106/80. P: 108. Skin: The patient has a diffuse but not confluent palpable mildly erythematous rash which involves the areas described above. Between the fourth and fifth toe on his left foot there is mild maceration of the skin without signs of secondary infection and on the plantar aspect of the foot near the fourth and fifth toe there are changes present suggestive of dyshidrotic eczema. A/P: Rash, etiology is not clear. I discussed the case with Dr. Dominique from Dermatology. She requests that the patient have CBC with differential checked and she is going to see him on , 04/11/01. The patient was advised to call sooner with any questions or problems he might have. cc: IN SUMMARY: Rash, etiology is not clear. 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
--- OUTSIDE RECORDS SUMMARY | 2022-05-10 04:14 | XMS_ITS | Encounter Summary ---
:1985 Author Organization [facility] Address [address] [place] [address] Care Team Providers Name Role Phone Unassigned, Provider Primary Care Provider Unavailable Reason for Visit Reason Comments RASH Encounter Details Date Type Department Care Team Description 04/09/2001 Telephone Careline Nirmal Sanon RN RASH 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 Contact: Pt is calling and stating he has a rash to whole body for a week and he has had chicken pox in past. Red and slightly raised to whole body with some itching. No new foods, so aps , detergents or meds recently. PT did have a st earlier this week. Pt has [employer] insurance and won dering about having sx looked at. TRIAGE REFERENCE: RASH - Adult CNG (b)2000 STAT SX: none per guideline ASSESSMENT: location (body), duration (1 week), description (red rasied), itching (yes), fever (no), other symptoms (no), st (had one), behavior (pesistent rash), history (no), current medication (notasked ). Home Treatment: not discussed. documented in this encounter Plan of Treatment Upcoming Encounters Date Type Specialty Care Team Description 05/16/2022 Appointment Orthopedics Derrell Lei MD [address] [place] [phone] (Wo rk) documented as of this encounter Visit Diagnoses Not on filedocumented in this encounter Care Teams Interstate Bus Dispatcher Relationship Specialty Start Date End Date Unassigned, Provider PCP - General 10/26/00 04/22/[address] [place] [id number] documented as of this encounter
--- OUTSIDE RECORDS SUMMARY | 2022-05-10 04:14 | XMS_ITS | Encounter Summary ---
:1985 Author Organization Count includes the [facility] Address [address] [place] [address] Care Team Providers Name Role Phone Unassigned, Provider Primary Care Provider Unavailable Encounter Details Date Type Department Care Team Description 01/20/2002 Office Visit [facility] MENDEZ CHRONIC SINUSITIS NOS; ASTHMA, UNSPECI FIED; RESPIRATORY ABN ORM NOS Social History Tobacco Use Types Packs/Day Years Used Date Smoking Tobacco: Never Assessed Sex Assigned at Date Recorded Not on file documented as of this encounter ED Notes Jo Kellogg - 01/20/2002 12:00 AM CDTLog Number: [id number] COMPLAINT: Short of breath and lightheaded. HISTORY OF PRESENT ILLNESS: The patient is an 16-year-old who has been out of his inhalers for about a month. He's here with complaints of head congestion, headache, lightheadedness and some nausea. He has also had some shortness of breath. He's not had any the fevers. He does have some sore throat and has some chest pain with deep inspiration. REVIEW OF SYSTEMS, PAST MEDICAL HISTORY, MEDICATIONS, ALLERGIES, SOCIAL HISTORY, FAMILY HISTORY: Please see her shingle. PHYSICAL EXAMINATION: Vitals; blood pressure 109/64, pulse 88, respiratory rate 22, temp 97.5, oxygen saturations 99% on room air. In general the patient is alert, oriented. He is currently having a nap when I entered the room. His pupils are round equal and reactive to light. His extraocular movements intact. He has tenderness over the frontal and bilateral maxillary sinuses. Nasal mucosa appears boggy. Oropharynx is clear. There is no anterior-posterior cervical adenopathy. Lungs are clear to auscultation with equal breath sounds bilaterally and good air movement. Cardiac: Regular rate and rhythm. No murmur, gallop, rub. The patient has good pulses. Abdomen is soft and nontender. Bowel sounds are present. The patient has no rashes noted. He has full range of motion of all his extremities. He is good strength throughout. His mental status is intact. MEDICAL DECISION MAKING EMERGENCY DEPARTMENT COURSE: Patient received albuterol neb here. He also received 2 puffs from albuterol metered dose inhaler and this was sent home with the patient. He was treated with Flonase nasal spray. This was also sent home with the patient. He is to use this until his sinus headaches have resolved. IMPRESSION: Sinusitis. Asthma. DISPOSITION: Home. Condition stable. glt Dictated: 01/20/2002 05:58:27 Jo Kellogg MD Transcribed: 01/21/2002 08:13:10 Doc #: [id number] cc: Page 1 Patient Name: MISSY LOVE Visit Date: 01/20/2002 EMERGENCY MEDICINE NOTE CONFIDENTIAL MEDICAL RECORD [address] [phone] Page 1 Patient: MISSY LOVE Location: [facility] HPN: Date of : 1985 Visit Date: 01/20/2002 EMERGENCY MEDICINE NOTE documented in this encounter Plan of Treatment Upcoming Encounters Date Type Specialty Care Team Description 05/16/2022 Appointment Orthopedics Derrell Lei MD [address] [place] [phone] (Wo rk) documented as of this encounter Visit Diagnoses Diagnosis Unspecified sinusitis (chronic) Unspecified asthma(493.90) ([facility]) Unspecified asthma Respiratory abnormality, unspecified documented in this encounter Care Teams Miniature Set Designer Relationship Specialty Start Date End Date Unassigned, Provider PCP - General 04/23/01 12/19/[address] [place] [phone] documented as of this encounter
--- OUTSIDE RECORDS SUMMARY | 2022-05-10 04:14 | XMS_ITS | Encounter Summary ---
:1985 Author Organization [facility] Address [address] [place] [address] Care Team Providers Name Role Phone Unassigned, Provider Primary Care Provider Unavailable Encounter Details Date Type Department Care Team Description 04/11/2001 Office Visit [facility] Mason Dominique MD ERYTHEMATOUS COND NOS [address] [place] [address] Social History Tobacco Use Types Packs/Day Years Used Date Smoking Tobacco: Never Assessed Sex Assigned at Date Recorded Not on file documented as of this encounter Progress Notes Sabrina Dominique - 04/11/2001 12:00 AM CSTS: The patient is an 16-year-old boy who is a consult from Dr. Delarosa. The patient has an eight-day history of a mildly pruritic red scaly rash that is over much of his body, especially the arms and back. The patient has had no treatment for it. He can't think of anything that triggered this, and it's been persistent. Two days ago, he had some symptoms of what he calls a cold with some chest discomfort, but no sore throat. He takes no medications and apparently no street drugs. He is unemployed and lives at home with his family. REVIEW OF SYSTEMS: He has no additional skin problems. He has had no fevers or chills. He has had no rash on his penis or no ulcers. He had a CBC and diff today and they were within normal limits. O: The patient has a faintly erythematous slightly scaly eruption on his proximal upper arms, some scattered areas on the chest that are both discrete and confluent. His palms, face and neck and oral cavity are clear, and his legs are clear. A: Diagnostic possibilities would include a reactive erythema, possibly secondary to food or a viral infection, slight possibility of pityriasis rosea. P: The patient can take Benadryl 25 mg at night as needed for itching. He will apply 0.1% Triamcinolone cream bid to the rash. Since he is having some problem with chest discomfort, I suggested he follow up with primary care physician. If his rash doesn't not completely clear within one to two weeks, he will contact me. IN SUMMARY: RASH cc: Cj Delarosa MD CIATE DIRECTOR QA documented in this encounter Plan of Treatment Upcoming Encounters Date Type Specialty Care Team Description 05/16/2022 Appointment Orthopedics Derrell Lei MD [address] [place] [phone] (Wo rk) documented as of this encounter Visit Diagnoses Diagnosis Unspecified erythematous condition documented in this encounter Care Teams Tube Room Supervisor Relationship Specialty Start Date End Date Unassigned, Provider PCP - General 10/26/00 04/22/[address] [place] [phone] documented as of this encounter
--- OUTSIDE RECORDS SUMMARY | 2022-05-10 04:14 | XMS_ITS | Encounter Summary ---
:1985 [address] [facility] Address [address] [place] [address] Care Team Providers Name Role Phone Unavailable Primary Care Provider Unavailable Encounter Details Date Type Department Care Team Description 05/27/2000 Office Visit [facility] INSECT BITE FOREARM-INFEC; [address] [place] [address] Social History Tobacco Use Types Packs/Day Years Used Date Smoking Tobacco: Never Assessed Sex Assigned at Date Recorded Not on file documented as of this encounter Plan of Treatment Upcoming Encounters Date Type Specialty Care Team Description 05/16/2022 Appointment Orthopedics Derrell Lei MD [address] [place] [phone] (Wo rk) documented as of this encounter Visit Diagnoses Diagnosis Elbow, forearm, and wrist, insect bite, nonvenomous, infected(913.5) Elbow, forearm, and wrist, insect bite, nonvenomous, infected Bite of nonvenomous arthropod(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
--- OUTSIDE RECORDS SUMMARY | 2022-05-10 04:14 | XMS_ITS | Encounter Summary ---
:1985 Author Organization [facility] Address [address] [place] [address] Care Team Providers Name Role Phone Unavailable Primary Care Provider Unavailable Encounter Details Date Type Department Care Team Description 05/30/2000 Office Visit [facility] Price Kellogg, CELLULITIS OF ARM; [address] Michel MD FOLLOW-UP EXAM NOS [place], [place] [id number] Social History Tobacco Use Types Packs/Day Years Used Date Smoking Tobacco: Never Assessed Sex Assigned at Date Recorded Not on file documented as of this encounter Plan of Treatment Upcoming Encounters Date Type Specialty Care Team Description 05/16/2022 Appointment Orthopedics Derrell Lei MD [address] [place] [phone] (Wo rk) documented as of this encounter Visit Diagnoses Diagnosis Cellulitis and abscess of upper arm and forearm Unspecified follow-up examination documented in this encounter
--- OUTSIDE RECORDS SUMMARY | 2022-05-10 04:14 | XMS_ITS | Encounter Summary ---
:1985 Author Organization [facility] Address [address] [place] [address] Care Team Providers Name Role Phone Unassigned, Provider Primary Care Provider Unavailable Reason for Visit Reason Comments BREATHING PROBLEM Encounter Details Date Type Department Care Team Description 01/20/2002 Telephone Careline Aureliano Rao, RN BREATHING PROBLEM [address] [place], [place] [address] [phone] [place] [address] Social History Tobacco Use Types Packs/Day Years Used Date Smoking Tobacco: Never Assessed Sex Assigned at Date Recorded Not on file documented as of this encounter Nursing Notes 01/20/2002 11:59 PM CDT >> AURELIANO RAO Mon Jan 20, 2002 1:13 AM >> CALL RECEIVED. Contact: self TRIAGE REFERENCE: SORE THROAT - ADULT CNG (c) 2001 CONCERN: ST. Sx x2 hrs, feeling light headaed and passing out, chest and throat is painful with lanette thing. SOB heard over the phone, speech is broken. Plan: call 911 documented in this encounter Plan of Treatment Upcoming Encounters Date Type Specialty Care Team Description 05/16/2022 Appointment Orthopedics Derrell Lei MD [address] [phone] (Wo rk) documented as of this encounter Visit Diagnoses Not on filedocumented in this encounter Care Teams Stock Layer Relationship Specialty Start Date End Date Unassigned, Provider PCP - General 04/23/01 12/19/10 [address] [place] [address] documented as of this encounter
--- OUTSIDE RECORDS SUMMARY | 2022-05-10 04:14 | XMS_ITS | Encounter Summary ---
:1985 Author Organization [facility] Address [address] [place] [address] Care Team Providers Name Role Phone No Primary/Referring, Phy Primary Care Provider Unavailable Encounter Details Date Type Department Care Team Description 09/24/2000 Orders Only [facility], Internal [address] [place] [place] [address] [facility] [phone] [place] [address] Social History Tobacco Use Types Packs/Day Years Used Date Smoking Tobacco: Never Assessed Sex Assigned at Date Recorded Not on file documented as of this encounter Plan of Treatment Upcoming Encounters Date Type Specialty Care Team Description 05/16/2022 Appointment Orthopedics Derrell Lei MD [address] [place] [phone] (Wo rk) documented as of this encounter Procedures Procedure Name Priority Date/Time Associated Diagnosis Comme nts MR ORBIT FACE NECK Routine 09/24/2000 9:03 AM Res ults for this W/O CONTRAST CDT procedure are i n the results section. MR ORBIT FACE NECK Routine 09/24/2000 9:03 AM Res ults for this W/O CONTRAST CDT procedure are i n the results section. CT SPECIAL MIDFACE Routine 09/23/2000 11:06 PM Re sults for this CDT procedure are i n the results section. CT SPECIAL MIDFACE Routine 09/23/2000 11:06 PM Re sults for this CDT procedure are i n the results section. ORTHOPANTOMOGRAM/PA Routine 09/23/2000 9:15 PM Re sults for this NOREX CDT procedure are i n the results section. documented in this encounter Results MR ORBIT FACE NECK W/O CONTRAST (09/24/2000 9:03 AM CDT) Anatomical Region Laterality Modality Other Specimen (Source) Anatomical Collection Method Collection Time Re ceived Time Location / / Volume Laterality 09/24/2000 9:03 AM CDT Narrative 09/24/2000 11:04 PM CDT Ordered by DONNA LAMBERT MD PATIENT DOES SPEAK ENGLISHCLINICAL HX:-P AIN AND SWELLING LET LOWER JAW MRI NECK 09/24/00: INDICATIONS: ??Pain and swelling of the left lower jaw. ??Evaluate for abscess. TECHNIQUE: ??T1 weighted and fast spin e cho T2 axial and coronal images were obtained through the mandibl e. ??T1 weighted fat sat axial and coronal images were obtained f ollowing the intravenous administration of 14 ml Magnevist. COMPARISONS: ??None. FINDINGS: ??There is abnormal signal and enhancement in the subcutaneous fat in the region of the le ft mandibular angle. ??A linear area of low signal is seen extending to the skin surface consistent with a surgical drain. ??No drainable fl uid collection is identified. No abnormal signal in adjacent muscles. ??No abnormal marrow signal. Retention cyst versus polyp in sphenoid sinus. IMPRESSION: ??Cellulitis adjacent to lef t mandibular angle. ??No evidence of abscess or osteomyelitis. Internal Processing [facility] MRI/ MR ORBIT FACE NECK (09/24/2000 9:03 AM CDT) Component Value Ref Test Analysis Performed Pathologis t Range Method Time At Signature MR MRI NECK 09/24/00: [facility] ORBIT,FACE, INDICATIONS: Pain and swelling of the left lower jaw. RADIOLOGY NECK Evaluatefor abscess. TECHNIQUE: T1 weighted and fast spin echo T2 axial and coronalimages were obtained through the mandible. T1 weighted fat sat axial and coronal images were obtained following the intravenousadministration of 14 ml Magnevist. COMPARISONS: None. FINDINGS: There is abnormal signal and enhancement in thesubcutaneous fat in the region of the left mandibular angle. A linear area of low signal is seen extending to the skin surface consistent with a surgical drain. No drainable fluid collection is identified. No abnormal signal in adjacent muscles. No abnormal marrow signal. Retention cyst versus polyp in sphenoid sinus. IMPRESSION: Cellulitis adjacent to left mandibular angle. No evidence of abscess or osteomyelitis. 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 PROCEDURE: ??1 mm thick axial images wer e obtained at 1 mm intervals through the mandible. Coronal reconstruc tions performed. FINDINGS: ??No evidence for a mandibular fracture. There is diffuse soft tissue swelling noted on the left, but no focal abscess. The diffuse soft tissue swelling could be se condary to trauma, or could represent inflammation (cellulitis). The re is a minimal amount of gas/air immediately adjacent to the oute r margin of the mandible and teeth, which more likely represents minimal normal air in the mouth as opposed to gas in the subcutane ous soft tissues. CONCLUSION: ?? No fractures seen. There is diffuse soft tissue swelling along the left side of the cherry ible, but no focal soft tissue mass/abscess. Gerda Osei MD RAD CT/RH CT SPECIAL MIDFACE (09/23/2000 11:06 PM CDT) Component Value Ref Test Analysis Performed At [facility] Range Method Time Signature CT Special CT OF THE MANDIBLE 09/23/00, 2240 HOURS: [facility] Max Face WO INDICATIONS: Patient fell on stairs yesterday, and now RADIOLOGY IV has pain and swelling along the left side of the jaw. PROCEDURE: 1 mm thick axial images were obtained at 1 mm intervals through the mandible. Coronal reconstructions performed.FINDINGS: No evidence for a mandibular fracture. There is diffuse soft tissue swelling noted on the left, but no focal abscess. The diffuse soft tissue swelling could be secondary to trauma, or could represent inflammation (cellulitis). There is a minimal amount of gas/air immediately adjacent to the outer margin of the mandible and teeth, which more likely represents minimal normal air in the mouth as opposed to gas in the subcutaneous soft tissues.CONCLUSION: No fractures seen. There is diffuse soft tissue swelling along the left side of the mandible, but no focal soft tissue mass/abscess. Anatomical Region Laterality Modality Other Specimen (Source) Anatomical Collection Method Collection Time Re ceived Time Location / / Volume Laterality 09/23/2000 11:06 PM CDT Narrative 09/25/2000 2:08 AM CDT Ordered by GERDA OSEI Internal Processing Epic RAD CT/RH ORTHOPANTOMOGRAM/PANOREX (09/23/2000 9:15 PM CDT) Component Value Ref Test Analysis Performed Pathologis t Range Method Time At Signature ORTHOPANTOMOGRAM ORTHOPANTOMOGRAM MANDIBLE 09/23/00: [facility] INDICATIONS: Pain. Fall. RADIO LOGY FINDINGS: Panorex views of the mandible are normal. No evidence of fracture. Anatomical Region Laterality Modality Other Specimen (Source) Anatomical Collection Method Collection Time Re ceived Time Location / / Volume Laterality 09/23/2000 9:15 PM CDT Narrative 09/25/2000 5:17 PM CDT Ordered by GERDA OSEI Internal Processing [employer] RAD GENERAL DIAGNOSTIC/RH documented in this encounter Visit Diagnoses Not on filedocumented in this encounter Care Teams Tube Cleaner Relationship Specialty Start Date End Date No Primary/Referring, Phy PCP - General 12/26/14 documented as of this encounter
--- OUTSIDE RECORDS SUMMARY | 2022-05-10 04:14 | XMS_ITS | Encounter Summary ---
:1985 Author Organization [facility] Address [address] [place] [address] Care Team Providers Name Role Phone Unavailable Primary Care Provider Unavailable Encounter Details Date Type Department Care Team Description 09/23/2000 Office Visit Emergency Dept Vivek Gonzalez, CELLULITIS OF FACE; [facility] Andres Michel MD UNSPECIFIED ASTHMA, WITH ACUTE EXACERBAT ION; [place] [address] [address] FROM SLIPPING, TRIPPING, OR STUMBLI [phone] [place], [place] [address] Social History Tobacco Use Types Packs/Day Years Used Date Smoking Tobacco: Never Assessed Sex Assigned at Date Recorded Not on file documented as of this encounter Discharge Summaries Unmatched, Results - 09/23/2000 12:00 AM CDTPRIMARY DIAGNOSIS: Left mandibular cellulitis. ADVERSE DRUG REACTION CEFAZOLIN-WHEEZING. PROCEDURES PERFORMED DURING THIS ADMISSION: 1. CT scan of head in emergency room 09/23/2000. 2. Incision and drainage of left mandibular area of fluctuation with no pus return. 3. MRI of neck 09/24/2000 demonstrating no fluid pockets and left mandibular cellulitis. HISTORY OF PRESENT ILLNESS: The patient is a 15-year-old male with a past medical history significant for asthma, who was in his usual state of health until 1 day prior to admission when he slipped running up some stairs and fell onto the left side of his face. He immediately had pain over the left mandible and noticed some swelling. The pain has progressed over time and has been associated with increased swelling, warmth and erythema. He describes the pain as being throbbing and rated as a 9/10. There is some relief with morphine. He has minimal pain in the maxillary area on the left, as well as the inframandibular area and left side of his neck. He has not noticed any lymph nodes, nor has he noted any fevers, chills, night sweats, shortness of breath or chest pain. Mandibular pain is worse with any palpation. For details of the patient's past medical history, medications, allergies, family history, social history, review of systems, admission physical and admission laboratory data, please see the dictated history and physical. HOSPITAL COURSE: 1. Facial cellulitis. The patient was afebrile with a normal white count, but his physical exam was concerning for infection given his pronounced tenderness. The CT scan initially gave a suggestion of air and subcutaneous tissue. Despite being performed before the incision and drainage. He did undergo incision and drainage which was unremarkable and had only blood return. He subsequently was treated with Ancef in the emergency department. HE DID HAVE WHEEZING IN ASSOCIATION WITH ANCEF. The patient had an MRI which was unremarkable, except for the possibility of left mandibular cellulitis. THE PATIENT IS DISCHARGED ON A TREATMENT COURSE OF AZITHROMYCIN GIVEN HIS POSSIBLE REACTION TO CEFAZOLIN. 2. Asthma. The patient did have an episode of wheezing in association with antibiotics; however, during the rest of his course, he did not have any evidence of wheezing. Moreover, his asthma had been quiescent for several years prior to the dose of antibiotics. 3. Hypokalemia. The patient did have an initial potassium of 2.8; however, this was felt to be due to the nebulizers that he received. 4. Discharge. The patient is discharged with instructions to follow up with his regular MD in 2 weeks. Activities ad. lolis. Azithromycin 250 mg p.o. q.d. x 4 days. Initially the patient has albuterol MDIs, 2 puffs q.4h. p.r.n. mgd Dictated: 09/25/2000 13:50:00 Justen Zuniga MD Transcribed: 09/26/2000 16:12:40 Doc #: [id number] cc: Vivek Gonzalez MD, Attending 1 Page 1 Patient Name: MISSY LOVE DISCHARGE SUMMARY CONFIDENTIAL MEDICAL RECORD [address] [address] Page 1 Patient: MISSY LOVE [id number] Admit Date: 09/23/2000 Date of : 1985 Discharge Date: 09/25/2000 DISCHARGE SUMMARY documented in this encounter OR Notes H&P - Unmatched, Results - 09/23/2000 12:00 AM CDTCHIEF COMPLAINT: Pain in the left lower jaw. HISTORY OF PRESENT ILLNESS: This is a 15-year-old male with a history of asthma whose condition started 1 day prior to admission when patient was running to a trailer home, where he suddenly slipped and hit his left lower jaw on the steel doorsteps of the trailer home. The patient did not have any wound on the injury site, either outside the left lower jaw or inside the mouth, because he did not feel any wounds inside his mouth. No other injuries were sustained at this time. The patient's left jaw then swelled and on the morning of admission, the patient had some fever, running around 99.3, and had nausea and vomiting x 1. His left jaw continued to swell so that his foster father decided to bring him to the emergency room for further treatment. In the emergency room, the patient's left jaw was checked out and showed some fluctuation in the area and so they did incision and drainage if there was pus in there, but only blood came out. X-ray of the jaw was also done which showed no fractures and CT of the left lower jaw was also done. The patient was then given Ancef 1 gram IV x 1 and then patient experienced some wheezing, wherein the patient was given nebulizers and wheezing went away. The patient was then admitted to medicine for observation of the left lower jaw and there was an incision and drainage done on the left lower jaw with drain on the left lower jaw. The patient will have an MRI in the morning to check for any possible seepage of pus in the soft tissues. PAST MEDICAL HISTORY: Asthma. MEDICATIONS: None. ALLERGIES: NO KNOWN DRUG ALLERGIES. REVIEW OF SYSTEMS: The patient generally feels fine other than left jaw pain. On the heart, denies any chest pains at the moment, but earlier had some tightness in his chest when he had the IV antibiotic Ancef. Lungs: Had some shortness of breath, but this was relieved by his nebulizer treatment and feels fine at the moment of interview. Abdomen: No pain. Extremities: Has pain on the right knee, graded 3/10, which he had because of wrestling in high school. Neurological: The patient has no focal weakness in any part of his body. SOCIAL HISTORY: The patient has tobacco use of [id number] of smoking. Denies any alcohol or drug use. The patient is a student and in the 12th grade. FAMILY HISTORY: Father is still known by the patient and has MS. Mother has hypertension. PHYSICAL EXAMINATION: VITAL SIGNS: Temperature 96.4, pulse 78, respiratory rate 24, oxygen saturation 100% on room air and blood pressure of 124/67. GENERAL: The patient is awake, alert, no in any respiratory distress. HEENT: Pupils are reactive to light and accommodation. The left jaw has swelling and tenderness on palpation. There is incision on the left lower jaw with a drain coming out. There is no purulent discharge coming from the or the drain. Inside of the buccal cavity, there are no signs of lacerations in the mouth-either in the cheek area or in the floor of the tongue area. No wounds were seen. NECK: Nontender, supple. There are no palpable nodes. HEART: Regular rate and rhythm, no murmurs, no gallops. LUNGS: Clear to auscultation. ABDOMEN: Positive for bowel sounds, no tenderness, no organomegaly. KIDNEYS: No flank tenderness. EXTREMITIES: There is no edema on any extremities and there is no tenderness also in the knee areas. NEUROLOGIC: The patient is alert and oriented x 3. Cranial nerves II-XII are all intact and symmetrical. Motor is 5/5 in all extremities. Sensory is intact and symmetrical. Reflexes are +2 in all extremities. The patient was able to do [id number] quite well and patient can walk with good balance. Negative Babinski. LABORATORY DATA: X-ray of the jaw showed no signs of fracture. CT scan of lower jaw is still pending. Sodium 139, potassium 2.8, chloride 108, bicarb 25, BUN 9, creatinine 0.9, glucose 92, calcium 7.7, anion gap 6, WBC 8.4, hemoglobin 13.5, hematocrit of 39.3, and platelets of 250,000. MCV of 86.1. ASSESSMENT AND PLAN: This is a 15-year-old male who incurred trauma on the left lower jaw, causing some inflammation and tenderness with possibility of cellulitis in the area. THE PATIENT ALSO HAD SOME SIGNS OF ASTHMA DURING IV ADMINISTRATION OF ANCEF. 1. Cellulitis. The patient will be shifted to azithromycin p.o. for his infection of the left lower jaw and the patient will have an MRI in the morning to check for any seepage of pus in the soft tissues in the lower jaw and in the neck area as suggested by radiology. 2. Asthma. The patient has no signs of asthma right now, but will be put on albuterol MDI p.r.n. to relieve him of his asthma. 3. Electrolyte imbalance. The patient's potassium is 2.8 and will replace this with p.o. potassium chloride. mgd Dictated: 09/24/2000 02:43:02 Edy Barragan MD Transcribed: 09/24/2000 04:19:57 Patient seen with: Vivek Gonzalez MD Doc #: [id number] cc: Vivek Gonzalez MD, Attending 2 Page 2 Patient Name: MISSY LOVE HISTORY ~ PHYSICAL CONFIDENTIAL MEDICAL RECORD [address] [address] Page 1 Patient: MISSY LOVE Location: HPN: [id number] Admit Date: 09/23/2000 Date of : 1985 HISTORY ~ PHYSICAL Lillian - Vivek Gonzalez - 09/23/2000 12:00 AM CDTThe patient was seen and examined by me with Dr Edy Barragan. Please refer to his dictated history and physical dated 09/24/2000 for details. Nava components were repeated and are as follows: CHIEF COMPLAINT: Left jaw pain. HISTORY OF PRESENT ILLNESS: The patient is a 15-year-old male with a past medical history most significant for asthma, who was in his usual state of health until one day prior to admission when he slipped running up some stairs and fell onto the left side of his face. He immediately had pain over the left mandible and noticed some swelling. The pain has progressed over time and has been associated with increased swelling, warmth and erythema. He describes the pain as being throbbing and rated as a 9/10. There is some relief with morphine. He has minimal pain in the maxillary area on the left, as well as the inframandibular area and left side of his neck. He has not noticed any lymph nodes, nor has he noted any fevers, chills, nightsweats, shortness of breath, or chest pain. The mandibular pain is worse with any palpation. REVIEW OF SYSTEMS: Positive only for some shortness of breath after receiving Ancef in the emergency department. He also has chronic right knee pain from high school wrestling. Otherwise, a complete systems review negative. For details regarding past medical history, medications, allergies, social history, family history, physical examination, laboratory data: Please refer to Dr Barragan's note. PHYSICAL EXAMINATION: Nava components of physical examination performed with Dr Barragan: GENERAL: He is a young, healthy-appearing male who was nontoxic. VITAL SIGNS: Blood pressure is 124/67, pulse 78, temperature 96.4. HEENT: There is marked erythema, warmth and swelling over the inferior aspect of the left mandible. There was also soft tissue swelling without much erythema extending superiorly to the mandibular angle. It is tender to palpation but not fluctuant. There are no tender lymph nodes in the cervical region, and there is no fluctuans over the maxillary area. There is a drain in place from an incision and drainage performed in the emergency department. There is no purulent drainage from the area. CARDIOVASCULAR: Regular rate and rhythm without murmurs, gallops or rubs. LUNGS: Clear to auscultation without wheezes, rhonchi or rales. LABORATORY DATA: Potassium 2.8, creatinine 0.9, white blood cell count 8.4. X-ray of the mandible did not reveal any fractures (per report). CT scan of the mandible did not reveal any mandibular fractures but showed diffuse soft tissue swelling without any focal abscess. There was minimal gas adjacent to the mandible that most likely represents normal air pattern in the mouth and not gas in the subcutaneous tissue (discussed with performing radiologist). IMPRESSION 1. Possible facial cellulitis. The patient is afebrile with a normal white blood cell count, but the physical exam is concerning for infection. The CT scan gives a suggestion of air in the subcutaneous tissue and we will follow this finding up with an MRI to obtain better definition. He was treated with a dose of Ancef in the emergency department but had some wheezing afterward and thus the Ancef was discontinued. He was started on azithromycin last evening and seems to be tolerating it just fine. There are no other signs of systemic illness at this time. He is still in a considerable amount of pain which has been controlled with intravenous morphine. We will be careful to watch his respiratory status with him on intravenous morphine. Another possibility with regard to etiology is a hematoma. Hopefully, the MRI will help clarify our diagnostic dilemma. 2. Asthma. It currently appears to be quiescent. The episode in the emergency department sounds like an allergic reaction to Ancef and will be noted in his chart. He will be given beta agonist p.r.n. 3. Hypokalemia. May be related to beta agonist received in the emergency department. Will replace with 40 mEq of KCl. PLAN: As above. [facility] Dictated: 09/24/2000 12:32:08 Vivek Gonzalez MD Transcribed: 09/24/2000 16:10:53 Doc #: [id number] Page 2 Patient Name: MISSY LOVE HISTORY ~ PHYSICAL CONFIDENTIAL MEDICAL RECORD [address] [address] Page 1 Patient: MISSY LOVE Location: HPN: [id number] Admit Date: 09/23/2000 Date of : 1985 HISTORY ~ PHYSICAL documented in this encounter ED Notes James Villegas - 09/23/2000 12:00 AM CDTLog Number: [id number] CHIEF COMPLAINT: My jaw hurts. This 15-year-old boy comes in via himself. He is complaining of left jaw pain. He says approximately 2 mornings ago he slipped in the rain and he fell the height of his own height which is approximately 5 feet 6 inches. He struck his left jaw on some stairs. He had no loss of consciousness. He did go to bed after this and when he awoke his face was swollen and red in his lower jaw. He comes in today because it has become increasingly difficult for him to open his mouth. He does complain of one episode where he felt slightly short of breath but this passed on his own. He has had no vomiting but he has been slightly nauseated. He is able to swallow well and still is breathing well but he says it is very hard to open his mouth primarily because of pain. He denies any previous episodes like this. He has had no further headache, no change in vision or hearing. He denies having any fevers, he says he felt slightly warm but has not been chilled or sweaty since this happened. He did have some acne in this area with an old scab being present but the redness and swelling is all new. He says his teeth are fine, they fit together normally. He has no sensations that any are loose and no known dental problems. He specifically denies any other rashes, chest pain, shortness of breath, back pain, abdominal pain, changes in bowel or bladder, joint pains or any other significant changes in his health recently. The patient states his last tetanus shot was the beginning of 8th grade which was within 5 years. PAST MEDICAL HISTORY: Asthma as a child that has since resolved, he is currently on no medications, otherwise unremarkable. MEDICATIONS: None. ALLERGIES: NONE. REVIEW OF SYSTEMS: Unremarkable except for above. SOCIAL SITUATION: He denied any drug use, drinking or smoking. He goes to high school and is in a stable living condition. FAMILY HISTORY: Noncontributory. PHYSICAL EXAMINATION: Please see ED anie. VITAL SIGNS: He is afebrile. GENERAL: In no acute distress, alert and oriented times 3. HEENT: Normal TMs bilaterally and equal and reactive pupils. Extraocular movements intact, no conjunctival pallor. Nose is unremarkable. Mid face is stable. Mouth is unable to be assessed well because the patient has trismus and is unable to open slightly more than 1 finger with wide. He has obvious left mandible swelling and erythema just lateral to the chin. On the left side there is a scab there, it does not appear to be a sinus tract. He has an area of fluctuants anterior to the jaw here. There is no obvious swelling or redness in the neck or behind the teeth. He is slightly tender below the mandible. It dos not clearly involve the neck at this point. NECK: Supple, range of motion is intact. LUNGS: Clear initially. HEART: Normal sounding. ABDOMEN: Soft. SKIN: Unremarkable. Rest of exam is unremarkable. EMERGENCY ROOM COURSE: This gentleman presents with what appears to be, by visual exam, a cellulitis but what sounds like by history may be a fracture. To this end, I give him a Percocet for some pain control and send him over for Panorex which shows no fracture. I then proceed with a CT of his mandible that shows a large area of inflammation that corresponds to physical exam. There are no obvious abscesses present, however. I do give him IV antibiotics, 1 gram of Ancef and some IV morphine which helps him with his pain and in preparation for an I~D, I take him over to the East side for monitoring. Once we are there, he does become wheezy, this corresponds roughly to a couple minutes after the end of his Ancef, also associated with some slight tightness in his chest similar to his previous breathing difficulty. It responds very nicely to an albuterol neb and afterwards he is complaining of no further respiratory problems and his wheezing is absolutely gone. His sats throughout this are 100%. He is placed on an O2 cannula and given approximately 50 mcg of fentanyl and 2 mg of versed. His left chin is then sterilely prepped and draped, using a #11 blade, I stab from the lower line of the mandible up into the area of fluctuans resulting in bleeding. I then, with curved Slime, introduced this into the area in attempt to break up any fluctuans, I am not able to express any pus or find any distinct areas with exploration. I do place a wick in there without packing and then hold some direct pressure to control bleeding. This was all done after the area was anesthetized with 1% lidocaine. The patient tolerated the procedure well with no problems. Given his trismus which improved slightly with pain medication, however, not normal by any means, I feel that this patient would be best served by admission for close observation and follow up in the morning. I discussed with his team and with maxillofacial surgeons who agree to see him in the morning. After reviewing his CT scan with radiology, they do recommend an MRI of his mandible and upper neck tomorrow to further elucidate if there are any hidden pockets that are not obvious on CT scan. Discussed with the patient and he has no questions at the time of discharge. He is admitted to the floor. FINAL DIAGNOSIS: Left jaw cellulitis, possible Shane's angina. Dr. Gonzales was present for nava parts of the I~D. [facility] Dictated: 09/24/2000 02:23:51 James Villegas MD Transcribed: 09/24/2000 14:48:06 Patient seen with Aunpam Gonzales MD Doc #: [id number] cc: Vivek Gonzalez MD, Attending Physician 2 Page 2 Patient Name: MISSY LOVE Visit Date: 09/23/2000 EMERGENCY MEDICINE NOTE CONFIDENTIAL MEDICAL RECORD [address] [address] Page 1 Patient: MISSY LOVE Location: HPN: [id number] Date of : 1985 Visit Date: 09/23/2000 EMERGENCY MEDICINE NOTE documented in this encounter Plan of Treatment Upcoming Encounters Date Type Specialty Care Team Description 05/16/2022 Appointment Orthopedics Derrell Lei MD [address] [place] [phone] (Wo rk) documented as of this encounter Visit Diagnoses Diagnosis Cellulitis and abscess of face Asthma with acute exacerbation ([facility]) Unspecified asthma, with exacerbation Fall from other slipping, tripping, or s tumbling documented in this encounter
--- OUTSIDE RECORDS SUMMARY | 2022-05-10 04:14 | XMS_ITS | Encounter Summary ---
:1985 Author Organization [facility] Address [address] [place] [address] Care Team Providers Name Role Phone Unavailable Primary Care Provider Unavailable Encounter Details Date Type Department Care Team Description 09/25/2000 Office Visit HOSPITALIST PROGRAM Vivek Gonzalez MD CELLULITIS NOS [address] [place] [id number] [address] [place] [address] (Wo rk) Social History Tobacco Use Types [...] Cellulitis and abscess of unspecified si te documented in this encounter
== END 2022-05-10 04:11 | disposition home or self-care (01) ==
LOC: ED 04:09
PROVIDERS: Emergency Provider Family Medicine
DX: S61.211A Laceration without foreign body of left index finger without damage to nail, initial encounter (principal); W23.0XXA Caught, crushed, jammed, or pinched between moving objects, initial encounter; Y93.9 Activity, unspecified; Y92.9 Unspecified place or not applicable; Y99.9 Unspecified external cause status
CPT/HCPCS: 12001; 99281

== ENCOUNTER 2023-10-14 12:33 | Emergency (ER) | payer MEDICARE, SELFPAY ==
[2023-10-14 12:36] VITALS: BP 117/84; PULSE 75; RESP 18; TEMP 36.6; O2SAT 96; BMI 29.8
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
[2023-10-14] MEDS: NAPROXEN 250 MG TABLET 500 MG PO (13:12)
--- OUTSIDE RECORDS SUMMARY | 2023-10-14 13:16 | XMS_ITS | Clinical Summary ---
[facility] Address [address] [place] [address] Care Team Providers Care Self Sealing Fuel Tank Builder Name Role Phone Meng Conner MD Primary Care Provider Unavailab le Source Comments You are receiving this document as you are listed as the primary care provider,follow-up provider, or the patient has been referred to you for consultation.This is in compliance with the Medicare and[facility] EHR Incentive Program,which states Providers who transition their patient to another setting of careor provider of care or refers their patient to another provider of care shouldprovide summary care record for each transition of care or referral. [facility] Active Allergy Reactions Criticality Noted Date Comments Cefazolin Other, see comments,Unknown 03/10/2015 Childhood rx- pt does not remember Medications Medication Sig Dispensed Refills Start Date End Date Status levETIRAcetam (KEPPRA) 500 MG tablet Take 1 Tablet (500 mg) by mouth daily. 12/26/2022 Active escitalopram oxalate (LEXAPRO) 20 MG tablet Take 1 Tablet (20 mg) by mouth daily. 12/26/2022 Active varenicline (CHANTIX) 1 MG tablet Take 1 Tablet (1 mg) by mouth. 10/19/2022 Active ketorolac (TORADOL) 10 MG tablet Take 1 Tablet (10 mg) by mouth every 6 hours as needed for Pain. 9 Tablet 01/15/2023 Active oxyCODONE-acetaminoph en (PERCOCET) 5-325 MG tablet Take 1-2 Tablets by mouth every 4 hours as needed for Pain (severe pain). 20 Tablet 01/24/2023 Active carisoprodol (SOMA) 350 MG tablet Take 1 Tablet (350 mg) by mouth 4 times daily as needed for Muscle Spasms. 28 Tablet 01/24/2023 Active Active Problems Problem Noted Date Diagnosed Date Loose body in knee, right knee 07/26/2022 Overview: Added automatically from request for surgery [id number] Chronic pain of right knee 05/24/2022 Overview: Added automatically from request for surgery [id number] Effusion of right knee 05/24/2022 Overview: Added automatically from request for surgery [id number] Painful orthopaedic hardware 05/24/2022 Overview: Added automatically from request for surgery [id number] Multiple fractures of pelvis with stable disruption of pelvic eyak with routine healing 03/13/2015 Femur fracture, right 02/22/2015 Stimulant use disorder 01/11/2015 Cough 01/08/2015 Tobacco use disorder 01/08/2015 Psychopathic personality (disorder) 09/21/2013 Hyperlipidemia 09/10/2013 Methamphetamine addiction 07/24/2013 Alcohol dependence 07/24/2013 Nicotine dependence 07/24/2013 Altered mental status 07/21/2013 Hypotension 07/21/2013 Hypokalemia 07/21/2013 Drug overdose, intentional 07/21/2013 Schizoaffective disorder 07/20/2013 Ingestion of substance 07/20/2013 Suicide attempt by drug ingestion 07/20/2013 OCD (obsessive compulsive disorder) 07/20/2013 Bipolar 1 disorder, mixed 07/20/2013 Depressive disorder 06/23/2013 Anxiety state 12/27/2011 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, in remission 12/27/2011 Drug-induced mood disorder 06/11/2011 Major depression, recurrent 06/11/2011 Polysubstance dependence 06/11/2011 Major depressive disorder, recurrent episode, mo derate 04/11/2011 Adjustment disorder with disturbance of conduct 02/15/2011 Attention or concentration deficit 02/15/2011 Esophagitis 11/19/2009 Overview: EGD 11/2008 esophageal ulcer Abnormal weight gain 09/23/2007 Immunizations Name Administration Dates Next Due 9vHPV (Gardasil 9) 06/08/2022 Flu Vac (3+ yrs) 04/11/2007 Fluzone Qiv Multidose Vial 0.25 (6-35 Mos) 04/29 Influenza IIV4 (Quadrivalent) 0.5mL (26761) 03/04,08/22/2013 PPSV23 (Pneumovax) 08/22/2013 Tdap 02/22/2015,02/13/2007 Social History Tobacco Use Types Packs/Day Years Used Date Smoking Tobacco: Former Cigarettes Q uit: 01/2023 Smokeless Tobacco: Never Alcohol Use Standard Drinks/Week Comments No 0 (1 standard drink = 0.6 oz pur e alcohol) Sex and Gender Information Value Date Recorded Sex Assigned at Not on file Gender Identity Not on file Sexual Orientation Not on file Last Filed Vital Signs Vital Sign Reading Time Taken Comments Blood Pressure 109/67 01/15/2023 3:00 PM CDT Pulse 72 01/15/2023 3:00 PM CDT Temperature 36.1 ??C (97 ??F) 01/15/2023 2:4 5 PM CDT Respiratory Rate 19 01/15/2023 3:00 PM CDT Oxygen Saturation 99% 01/15/2023 3:1 5 PM CDT pt took off BP cuff and refused another BP before leaving Inhaled Oxygen Concentration - - Weight 75.6 kg (166 lb 9.6 oz) 01/03/2023 3:36 PM CDT Height 172.7 cm (5' 8) 01/12/2023 2:14 PM CDT Body Mass Index 25.33 06/26/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 Plan of Treatment Health Maintenance Due Date Last Done Comments Hep C Screening (Preventive Services) 1983 Medicare Annual Wellness Visit 1983 HIV Screening (Preventive Services) 1999 HepB (1) 2002 Cholesterol 2018 HPV Vaccine (2 - 3-dose SCDM series) 07/06/2022 06/08/2022 COVID-19 Vaccine (1 - season) 2023 Influenza (Season Ended) 2024 022, 03/14/2015, 08/22/2013, Additional history exists DTaP/Tdap/Td (3 - Tdap) 02/22/2025 02/22/2015, 02/13 Diabetes Screening- (based on age and BMI) 01/03/2026 01/03/2023, 06/26/2022, 03/04/2022 Zoster/Shingles (1 of 2) 2033 Pneumococcal Aged Out 08/22/2013 No longer eligi ble based on patient's age to complete this topic HepA Aged Out No longer eligi ble based on patient's age to complete this topic Hib Aged Out No longer eligi ble based on patient's age to complete this topic IPV (Polio) Aged Out No longer eligi ble based on patient's age to complete this topic MCV4 Aged Out No longer eligi ble based on patient's age to complete this topic Advance Directives * Full Code (Latest Code Status on File) Date Activated Date Inactivated Comments 08/02/2022 10:12 AM 08/02/2022 2:09 PM * Full Code Date Activated Date Inactivated Comments 12/28/2014 2:27 AM 12/29/2014 5:03 PM * Full Code Date Activated Date Inactivated Comments 07/21/2013 12:29 AM 07/22/2013 2:01 PM Care Teams Self Sealing Fuel Tank Builder Relationship Specialty Start Date End Date Meng Conner MD [address] [facility], [address] PCP - General 02/03/16
--- OUTSIDE RECORDS SUMMARY | 2023-10-14 13:17 | XMS_ITS | Encounter Summary ---
Author Name Unknown Organization [facility] Address [address] [place] [address] Care Team Providers Care Under Seal Operator Name Role Phone Meng Conner MD Primary Care Provider Unavailab le Encounter Details Date Type Department Care Team (Late st Contact Info) Description 12/28/2014 Consent for Procedure/Treatme nt [facility] INFORMED CONSENT NEUROLEPTIC MEDICATIONS Social History Tobacco Use Types Packs/Day Years Used Date Smoking Tobacco: Unknown Alcohol Use Standard Drinks/Week Comments No 0 (1 standard drink = 0.6 oz pur e alcohol) Sex and Gender Information Value Date Recorded Sex Assigned at Not on file Gender Identity Not on file Sexual Orientation Not on file documented as of this encounter Plan of Treatment Not on file documented as of this encounter Visit Diagnoses Not on filedocumented in this encounter Care Teams Under Seal Operator Relationship Specialty Start Date End Date Meng Conner MD [address] [place], [address] PCP - General 02/03/16 documented as of this encounter
--- OUTSIDE RECORDS SUMMARY | 2023-10-14 13:17 | XMS_ITS | Clinical Summary ---
Author Name Unknown Organization [facility] Address [place], [place] [address] Care Team Providers Care Planner Chief Name Role Phone Pcp, No Primary Care Provider Unavailabl e Allergies Active Allergy Reactions Criticality Noted Date Comments Cefazolin *Unknown - Childhood Rxn 03/10/2015 Medications Medication Sig Dispensed Refills Start Date End Date Status varenicline (CHANTIX DOSEPAK) 0.5 mg (11)- 1 mg (42) tabletIndications:Abhilash otine dependence due to vaping tobacco product Days 1-3 take 0.5mg once daily; Days 4-7 take 0.5mg twice daily; then increase to 1mg twice daily. Take with meals. 1 Packet 09/28/2022 Active varenicline (CHANTIX) 1 mg tabletIndications:Abhilash otine dependence due to vaping tobacco product Take 1 mg by mouth two times daily with meals. 84 Tablet 1 10/19/2022 Active ibuprofen (ADVIL; MOTRIN) 600 mg tabletIndications:Dane k pain, unspecified back location, unspecified back pain laterality, unspecified chronicity Take 1 Tablet (600 mg) by mouth every 6 hours if needed for Pain. Maximum of 3200 mg in 24 hours. 40 Tablet 12/09/2022 Active Active Problems Problem Noted Date Diagnosed Date Schizoaffective disorder, unspecified type 10/20 Stimulant use disorder 01/11/2015 Tobacco use disorder 01/08/2015 Cough 01/08/2015 Unspecified episodic mood disorder 06/11/2011 Polysubstance dependence 06/11/2011 Drug-induced mood disorder(292.84) 06/11/2011 Depressive disorder, not elsewhere classified Major depression, recurrent 06/11/2011 Unspecified psychosis 06/11/2011 Esophagitis, unspecified 11/19/2009 Overview: EGD 11/2008 esophageal ulcer Immunizations Name Administration Dates Next Due HPV 9 (Gardasil 9) 06/08/2022 Influenza, IIV3 (Age >=3 years) 04/11/2007 Influenza, IIV4 03/14/2015,08/22/2013 Influenza, IIV4 (=>6mos) MDV 04/29/2022 Pneumococcal Poly,23-Valent (Pneumovax) 08/23/19 14 Tdap 02/22/2015,02/13/2007 Family History Medical History Relation Name Comments Other Father muscular dystro phy Unknown Maternal Grandfather Unknown Maternal Grandmother Other Mother Unknown Paternal Grandmother Relation Name Status Comments Brother Alive Daughter 1 Alive Daughter 2 Alive Father Maternal Grandfather Maternal Grandmother Mother Paternal Grandfather Alive Paternal Grandmother Son Alive Social History Tobacco Use Types Packs/Day Years Used Date Smoking Tobacco: Former Cigarettes Q uit: 02/02/2013 Passive Smoke Exposure: Never Smokeless Tobacco: Never Tobacco Cessation:Counseling Given: Not Answered Comments:now smokes E-cigs Alcohol Use Standard Drinks/Week Comments Not Currently 0.8 (1 standard drink = 0.6 oz p ure alcohol) occ PHQ-2 Answer Date Recorded PHQ-2 TOTAL SCORE 0 09/28/2022 Social Connections Answer Date Recorded Frequency of Communication with Friends and Fami ly Not on file 08/03/2023 Financial Resource Strain Answer Date R ecorded Difficulty of Paying Living Expenses 3 09/28/2022 Difficulty of Paying Living Expenses Not on file 09/28/2022 Food Insecurity Answer Date Recorded Worried About Running Out of Food in the Last Ye ar 1 09/28/2022 Transportation Needs Answer Date Record ed Lack of Transportation (Medical) 1 09/28/2022 Housing Stability Answer Date Recorded Unable to Pay for Housing in the Last Year 1 09/28/2022 Sex and Gender Information Value Date Recorded Sex Assigned at Not on file Gender Identity Not on file Sexual Orientation Not on file Obstetrics History Last Filed Vital Signs Vital Sign Reading Time Taken Comments Blood Pressure 122/82 01/19/2023 1:53 AM CDT Pulse 82 01/19/2023 1:53 AM CDT Temperature 36.3 ??C (97.3 ??F) 01/19/2023 1:53 AM CD T Respiratory Rate 14 01/19/2023 1:53 AM CDT Oxygen Saturation 98% 01/19/2023 1:53 AM CDT Inhaled Oxygen Concentration - - Weight 74.8 kg (165 lb) 01/19/2023 1:52 AM CDT Height 170.2 cm (5' 7) 01/19/2023 1:52 AM CDT Body Mass Index 25.84 01/19/2023 1:52 AM CDT Plan of Treatment Health Maintenance Due Date Last Done Comments COVID-19 vaccine series ( season) 2023 BMI (ht and wt on same day) for age 18+ 09/29/2023 09/28/2022, 07/05/2022 Depression screening for age 12+ 09/29/2023 09/28/2022 Influenza for age 9-49 02/03/2024 , 03/14/2015, 08/22/2013, Additional history exists Tetanus booster 02/22/2025 02/22/2015, 02/13/2007 Lipids for age 35-44 09/29/2027 09/28/2022 Pneumococcal series for age 6-64 Aged Out 08/22/2013 No longer eligible based on patient's age to complete this topic Tdap Completed 02/22/2015, 02/13/2007 HIV for age 15-65 Completed 09/28/2022 Hepatitis C screening for age 18-79 Completed 09/28/2022 Procedures Procedure Name Priority Date/Time Associated Diagnosis Comments LC HIV-1/O/2, 4TH GENERATION Routine 09/28/2022 8:27 AM CDT Screening for HIV (human immunodeficiency virus) LC HCV ANTIBODY RFX TO QUANT PCR Routine 09/28/2022 8:27 AM CDT Need for hepatitis C screening test LC LIPID PANEL AND CHOL/HDL RATIO Routine 09/28/2022 8:27 AM CDT Screening for lipid disorders from Last 3 Months or Most Recently Relevant to Health Maintenance Results * (ABNORMAL) LC LIPID PANEL AND CHOL/HDL RATIO (09/28/2022 8:27 AM [facility]) [facility] Cholesterol, Total 182 100 - 199 mg/dL 09/30/2022 10:09 AM [facility] Triglycerides 69 0 - 149 mg/dL 09/30/2022 10:09 AM [facility] HDL Cholesterol 56 >39 mg/dL 10:09 AM [facility] VLDL Cholesterol Markel 13 5 - 40 mg/dL 09/30/2022 10:09 AM [facility] LDL Chol Calc ([facility]) 113(H) 0 - 99 mg/dL 09/30/2022 10:09 AM [facility] T. Chol/HDL Ratio 3.3 0.0 - 5.0 ratio 09/30/2022 10:09 AM [facility] Comment: ?T. Chol/HDL Ratio ?Men ??Women ?1/2 Avg.Risk ??3.4 ?3.3 ?Avg.Risk ??5.0 ?4.4 ? 2X Avg.Risk ??9.6 ?7.1 ? 3X Avg.Risk 23.4 ?? 11.0 Blood BLOOD SPECIMEN / Unknown Venipuncture / Unknown 09/28/2022 8:27 AM CDT 09/28/2022 8:[address] [facility]) - 09/30/2022 10:09 AM CDT Performed at: ??[address] ??[id number] Artificial Breeding Distributor: Vin Hensley MD, Phone: ??[phone] Lamont Mccoy MD SEND OUTS Performing Organization Address [facility] de Phone Number [facility] ([facility]) [address] [place] [address], * LC HCV ANTIBODY RFX TO QUANT PCR (09/28/2022 8:27 AM CDT) Pathologist [facility] HCV Ab Non Reactive Non Reactive 09/30/2022 2:[address] [facility] ([facility]) Blood BLOOD SPECIMEN / Unknown Venipuncture / Unknown 09/28/2022 8:27 AM CDT 09/28/2022 8:29 AM CDT Narrative [facility] ([facility]) - 09/30/2022 2:08 PM CDT Performed at: ??[address] ??[id number] Artificial Breeding Distributor: Vin Hensley MD, Phone: ??[phone] Lamont Mccoy MD LABORATORY Performing Organization Address [facility] de Phone Number [facility] [address] [place] [address] * LC HIV-1/O/2, 4TH GENERATION (09/28/2022 8:27 AM CDT) Pathologist [facility] HIV Scr 4th Gen Non Reactive Non Reactive 09/30/2022 12:[address] [facility] Comment: HIV Negative HIV-1/HIV-2 antibodies and HIV-1 p24 antigen were NOT detected. There is no laboratory evidence of HIV infection. Blood BLOOD SPECIMEN / Unknown Venipuncture / Unknown 09/28/2022 8:27 AM CDT 09/28/2022 8:29 AM CDT Narrative [facility] - 09/30/2022 12:07 PM CDT Performed at: ??01 - [facility] [place] [address] ??[id number] Artificial Breeding Distributor: Vin Hensley MD, Phone: ??[phone] Lamont Mccoy MD LABORATORY [facility] [address] [place] [address] from Last 3 Months or Most Recently Relevant to Health Maintenance Advance Directives * Full Code (Latest Code Status on File) Date Activated Date Inactivated Comments 01/08/2015 2:10 AM 01/11/2015 4:08 PM Question Answer Comments Code Status Discussion: Not Discussed * Full Code Date Activated Date Inactivated Comments 06/10/2011 10:53 PM 06/13/2011 3:00 PM Care Teams Planner Chief Relationship Specialty Start Date End Date Pcp, No . PCP - General 06/15/13
== END 2023-10-14 13:31 | disposition home or self-care (01) ==
LOC: ED 13:15
PROVIDERS: Emergency Provider Family Medicine
DX: S60.221A Contusion of right hand, initial encounter (principal); S60.222A Contusion of left hand, initial encounter; W23.0XXA Caught, crushed, jammed, or pinched between moving objects, initial encounter
CPT/HCPCS: 73130; 99283; 99284; A9270

== ENCOUNTER 2023-11-01 21:31 | Emergency (ER) | payer MEDICARE, SELFPAY ==
[2023-11-01 21:49] VITALS: BP 105/68; PULSE 83; RESP 18; TEMP 36.8; O2SAT 99; BMI 29.6
--- NOTE | 2023-11-01 22:11 | CRLHL7_ITS ---
For Patients: As a result of the Century Cures Act, medical imaging exams and procedure reports are released immediately into your electronic medical record. You may view this report before your referring provider. If you have questions, please contact your health care provider. INDICATION: Right lower quadrant abdominal pain, history of blood in stool. TECHNIQUE: CT of the abdomen and pelvis acquired with 95 cc Isovue 370 IV contrast. Coronal and sagittal reconstructions. COMPARISON: None. FINDINGS: There is a 1.0 cm subcapsular lesion in the posterior right hepatic lobe with focus of internal enhancement (series 2, image 23). This may represent a hemangioma. The gallbladder, spleen, pancreas, and adrenal glands are negative. No biliary dilation. Hepatic and portal veins are patent. Symmetric enhancement of the kidneys. Small right renal cyst. No hydronephrosis or ureteral dilation. No obstructing urinary calculi identified. Mild circumferential bladder wall thickening. Nonenlarged prostate gland. No small bowel dilation. There is mild wall thickening of proximal to mid small bowel loops which may represent a nonspecific enteritis. Moderate amount of stool throughout the colon. Redundant sigmoid colon. No signs of colonic inflammation. Negative appendix. No intraperitoneal free air or fluid. No lymphadenopathy. Multiple calcified granulomas in the lung bases. Calcified distal paraesophageal lymph node likely related to prior granulomatous disease. Linear atelectasis or scarring right lower lobe. Old fracture deformity of the right pubic bone. Prior screw tract in the right femur. IMPRESSION: 1. Findings suggestive of a nonspecific enteritis. 2. Mild bladder wall thickening. Correlate with urinalysis. 3. Small indeterminate liver lesion. This could be further evaluated with nonemergent ultrasound or MRI. Please note that all CT scans at this facility use dose modulation, iterative reconstruction, and/or weight-based dosing when appropriate to reduce radiation dose to as low as reasonably achievable. Dictated by Florencia Conn MD @ 11/01/2023 11:03:29 PM (Electronically Signed)
[2023-11-01 22:15] VITALS: O2SAT 99
[2023-11-01 22:25] LABS: Basophils Absolute Auto 0.01 K/uL (0.00-0.30); Basophils Percent Auto 0.1 % (0.0-3.0); Eosinophils Absolute Auto 0.18 K/uL (0.00-0.50); Eosinophils Percent Auto 2.5 % (0.0-7.0); Hemoglobin* 13.3 gm/dL (13.5-17.5); Immature Granulocytes Abs Auto 0.02 K/uL (0.00-0.30); Immature Granulocytes Pct Auto 0.3 %; Lymphocytes Absolute Auto 1.66 K/uL (0.90-2.90); Lymphocytes Percent Auto 23.4 % (20-44); Mean Corpuscular HGB Conc 32 gm/dL (32-36); Mean Corpuscular Hemoglobin 29 pg (26-34); Mean Corpuscular Volume 88 fL (80-100); Monocytes Percent Auto 11.8 % (0.0-11.0); Neutrophils Absolute Auto 4.38 K/uL (1.7-7.0); Neutrophils Percent Auto 61.9 % (42.0-72.0); Platelet Count* 276 K/uL (140-440); RDW Coefficient of Variation % 12.1 % (11.5-15.5); Red Blood Count 4.67 m/uL (4.30-5.90); White Blood Count* 7.09 K/uL (4.50-11.00)
[2023-11-01 22:27] LABS: Slide Review Reflex No
[2023-11-01 22:34] LABS: Appearance Urine Cloudy (Clear); Bilirubin Urine Negative (Negative); Blood Urine Trace-intact (Negative); Color Urine Yellow (Yellow); Glucose Urine Negative (Negative); Ketones Urine Trace (Negative); Leukocyte Esterase Urine Negative (Negative); Nitrite Urine Negative (Negative); Protein Urine Negative (Negative); Specific Gravity Urine 1.025 (1.000-1.030); Urobilinogen Urine 0.2 (0.2-1.0)
[2023-11-01 22:37] LABS: Albumin* 4.1 g/dL (3.3-5.0); Chloride* 108 mmol/L (96-114); Potassium* 4.3 mmol/L (3.6-5.1); Sodium* 144 mmol/L (135-149)
[2023-11-01 22:39] LABS: Creatinine* 1.1 mg/dL (0.5-1.5); Est. Creatinine Clearance* 86.36; Estimated Glomerular Filt Rate 87 ml/min
[2023-11-01 22:40] LABS: Alanine Aminotransferase* 17 U/L (4-50); Alkaline Phosphatase* 54 U/L (40-150); Anion Gap 4 mEq/L (7-15); Aspartate Amino Transferase* 23 U/L (12-35); Bilirubin Total* 0.5 mg/dL (0.1-1.5); Blood Urea Nitrogen* 20 mg/dL (5-24); Calcium* 9.6 mg/dL (8.4-10.6); Carbon Dioxide* 32 mmol/L (20-32); Glucose* 100 mg/dL (60-115); Total Protein* 7.4 g/dL (6.0-8.3)
[2023-11-01 22:43] LABS: Amorphous Sediment Urine Moderate; Bacteria Urine Few; RBC Urine 0-2 (0-2); Squamous Epithelial Cell Urine Few (None-Few); WBC Urine 0-2 (0-5)
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
[2023-11-01 23:53] VITALS: BP 110/70; PULSE 89; RESP 18; TEMP 36.8; O2SAT 99
[2023-11-01] MEDS: LIDOCAINE 1% 5 ml (pf) 5 ML VIAL 1 ML IM (23:54)
[2023-11-01] MEDS: cefTRIAXone 500 MG VIAL IM (23:54)
[2023-11-01] MEDS: DOXYCYCLINE HYCLATE 100 MG PO (23:54)
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
--- OUTSIDE RECORDS SUMMARY | 2023-11-01 23:56 | XMS_ITS | Encounter Summary ---
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 Content: Denies SI or thoughts of SIB currently. Reports AH are improved. Denies CAH. Insight: Limited Judgment: Limited Oriented to: Person, place, and time Attention Span and Concentration: Limited Recent and Remote Memory: Limited Language: Turkish with appropriate syntax and vocabulary Fund of Knowledge: Average Muscle Strength and Tone: Grossly normal Gait and Station: Grossly normal LABS No results found for this or any previous visit (from the past 24 hour(s)). IMPRESSION This is a 38 year old male with a PMH of schizoaffective disorder, bipolar type, MDD, PTSD, and polysubstance abuse (THC, meth, possibly others) who presents with psychosis occurring in the setting of general stressors. The patient has a history of hospitalization in 2007. He has a previous diagnosis of a schizophrenia spectrum disorder but validity questioned while in custodial. He has not been engaged in treatment recently. He is signs of dissociation and quite graphic visual hallucinations likefaces in toast with him making contradictory statements at times with some concern there may be an element of malingering. He does report being depressed with him struggling currently. He would benefit from hospitalization for further evaluation and treatment. In terms of treatment, will further evaluate to determine most appropriate coarse. The patient doesa pronounced family history of neurological conditions with his father dying of suicide with MS in his 40s. He is at higher risk of this condition so will determine if additional testing is needed. In addition, the graphic natures of his hallucinations call into question whether the patient is withdrawing from Soma or abusing this agent. No other signs seen right now with the medication being held with careful monitoring. High suspicion he might have been misusing Soma with this not being continued as could have contributed, especially to dissociation. Diagnosing schizoaffective disorder given his history of this diagnosis and psychotic symptoms apart from a mood episode over the last few months with it being possible that muscle relaxants contributed although not sufficient enough to rule out this diagnosis. Patient interested in ECT but not recommending at this time, given medications will likely be sufficient. Today: Patient's psychosis has improved with continued mood symptoms. Optimizing Depakote with the patient tolerating. Adding prn Risperdal to further address agitation. DIAGNOSES #. Schizoaffective disorder, bipolar type, current episode depressed #. Stimulant (meth) use disorder, in sustained remission #. 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 LINUX VMWARE ADMINISTRATOR psychotropic medications held: -None, as not on any LINUX VMWARE ADMINISTRATOR psychotropic medications continued/changed: -None, as not on any New psychotropic medications initiated: - Risperdal 3 mg at bedtime-> 4 mg at bedtime on 10/20 - Lexapro 10 mg daily-20 mg daily on 10/20 - Depakote ER 500 mg at bedtime -> 1,500 mg on 10/25 - Standard unit prn agents, including Risperdal 1 mg every 6 hours prn agitation, 1st choice and Zyprexa 10 mg PO/IM every 6 hours prn agitation, 2nd choice. Today's Changes: - Increase Depakote to 1,500 mg at bedtime - Start Risperdal prn Programming: Patient will be treated in a therapeutic milieu with appropriate individual and group therapies. Education will be provided on diagnoses, medications, and treatments. Medical diagnoses: Per medicine #. Seasonal allergies - Claritin 10 mg daily Consult: None Tests: none Anticipated LOS: 3-5 additional days Disposition: Home with outpatient services ATTESTATION Jay Garcia DO, MA Psychiatrist Video Visit: Patient has given verbal consent for video visit?: Yes Type of Service: video visit for mental health treatment Reason for Video Visit: [place] Originating Site (patient location): [facility] Distant Site (provider location): Remote Location Mode of Communication: Video Conference via [employer] Time of Service: Date: 10/26/2023 Start: 830 end: 900 * Stefanie Loving NP - 10/25/2023 12:[address] [facility] PSYCHIATRY PROGRESS NOTE SUBJECTIVE Prior to interviewing the patient, I met with nursing and reviewed patient's clinical condition. Wediscussed clinical care both before and after the interview. I have reviewed the patient's clinicalcourse by review of records including previous notes, labs, and vital signs. Per nursing, the patient had the following behavioral events over the last 24- hours: none. On psychiatric interview, the patient is found in his room. He reports sleeping really well last night. States that he is trying to nap as he got too spun from the nicotine and needed to take an emergency medication for agitation. He would like to stop the nicotine patches and just continue with the lozenges. He has been attending groups and being sociable on the unit. Less use of PRNs since yesterday. Reviewed that we would look at stopping PRN Thorazine tomorrow. He denies any side effects since starting the Depakote. We discussed discharge plans and he asked about placement, we let him know that outpatient case management can help him do this, he understood. He is still in agreement to go back to [place] to stay with his mother and potentially receive outpatient services in [place]. Patient was cooperative throughout conversation. He has been medication complaint and denies any side effects. Denies SI/VH, reports that his voices are not so negative today and there aren't so many. MEDICATIONS Scheduled Meds: Current Facility-Administered Medications Medication Dose Route Frequency Provider Last Rate Last Admin divalproex sodium extended-release (DEPAKOTE ER) 24 hr tablet 500 mg 500 mg Oral At Bedtime Stefanie Loving SUPERVISOR CABINETMAKER 500 mg at 10/24/23 1905 escitalopram (LEXAPRO) tablet 20 mg 20 mg Oral Daily Jay Garcia, DO 20 mg at 10/25/23 0824 loratadine (CLARITIN) tablet 10 mg 10 mg Oral Daily Jay Garcia, DO 10 mg at 10/25/23 0836 nicotine (NICODERM CQ) 14 MG/24HR 24 hr patch 1 patch 1 patch Transdermal Daily Stefanie Loving NP 1 patch at 10/24/23 0831 risperiDONE (risperDAL) tablet 4 mg 4 mg Oral At Bedtime Jay Garcia, DO 4 mg at 10/24/23 1906 PRN Meds:. Current Facility-Administered Medications Medication Dose Route Frequency Provider Last Rate Last Admin acetaminophen (TYLENOL) tablet 650 mg 650 mg Oral Q4H PRN Jose R Manzanares APRN WALLPAPER PRINTER 650 mg at 10/21/23 1330 alum & mag hydroxide-simethicone (MAALOX) suspension 30 mL 30 mL Oral Q4H PRN Jose R Manzanares APRN CNP chlorproMAZINE (THORAZINE) tablet 25 mg 25 mg Oral TID PRN Granberg, Stefanie, SUPERVISOR CABINETMAKER 25 mg at 10/25/23 1229 And benztropine (COGENTIN) tablet 0.5 mg 0.5 mg Oral TID PRN Granberg, Stefanie, SUPERVISOR CABINETMAKER 0.5 mg at 10/25/23 1229 cloNIDine (CATAPRES) tablet 0.1 mg 0.1 mg Oral TID PRN Granberg, Stefanie, SUPERVISOR CABINETMAKER 0.1 mg at 10/25/23 0948 hydrOXYzine HCl (ATARAX) tablet 50 mg 50 mg Oral Q4H PRN Granberg, Stefanie, SUPERVISOR CABINETMAKER 50 mg at 10/25/23 0948 melatonin tablet 3 mg 3 mg Oral At Bedtime PRN Jose R Manzanares APRN WALLPAPER PRINTER 3 mg at 10/24/23 1906 nicotine (COMMIT) lozenge 2 mg 2 mg Buccal Q1H PRN Grancarlitos, Stefanie, SUPERVISOR CABINETMAKER 2 mg at 10/25/23 1153 OLANZapine (zyPREXA) tablet 10 mg 10 mg Oral TID PRN Jay Garcia, DO 10 mg at 10/25/23 1102 Or OLANZapine (zyPREXA) injection 10 mg 10 mg Intramuscular TID PRN Jay Garcia, DO ALLERGIES Allergies Allergen Reactions Ancef [Cefazolin] MENTAL STATUS EXAM Vitals: BP 136/74 Pulse 96 Temp 98.5 ??F (36.9 ??C) (Temporal) Resp 18 Ht 1.702 m (5' 7) Wt 84.1 kg (185 lb 8 oz) SpO2 98% BMI 29.05 kg/m?? Appearance: Alert, oriented, dressed in hospital scrubs, casually groomed Attitude: Cooperative, pleasant Eye Contact: good Mood: good Affect: anxious Speech: Normal range. Normal rhythm Psychomotor Behavior: No tremor, rigidity, akathisia, or psychomotor retardation Thought Process: Logical, goal directed Associations: No loose associations Thought Content: Denies SI or thoughts of SIB currently. Reports AH are improved. Denies CAH. Insight: Limited Judgment: Limited Oriented to: Person, place, and time Attention Span and Concentration: Limited Recent and Remote Memory: Limited Language: Turkish with appropriate syntax and vocabulary Fund of Knowledge: Average Muscle Strength and Tone: Grossly normal Gait and Station: Grossly normal LABS No results found for this or any previous visit (from the past 24 hour(s)). IMPRESSION This is a 38 year old male with a PMH of schizoaffective disorder, bipolar type, MDD, PTSD, and polysubstance abuse (THC, meth, possibly others) who presents with psychosis occurring in the setting of general stressors. The patient has a history of hospitalization in 2007. He has a previous diagnosis of a schizophrenia spectrum disorder but validity questioned while in custodial. He has not been engaged in treatment recently. He is signs of dissociation and quite graphic visual hallucinations likefaces in toast with him making contradictory statements at times with some concern there may be an element of malingering. He does report being depressed with him struggling currently. He would benefit from hospitalization for further evaluation and treatment. In terms of treatment, will further evaluate to determine most appropriate coarse. The patient doesa pronounced family history of neurological conditions with his father dying of suicide with MS in his 40s. He is at higher risk of this condition so will determine if additional testing is needed. In addition, the graphic natures of his hallucinations call into question whether the patient is withdrawing from Soma or abusing this agent. No other signs seen right now with the medication being held with careful monitoring. High suspicion he might have been misusing Soma with this not being continued as could have contributed, especially to dissociation. Diagnosing schizoaffective disorder given his history of this diagnosis and psychotic symptoms apart from a mood episode over the last few months with it being possible that muscle relaxants contributed although not sufficient enough to rule out this diagnosis. Patient interested in ECT but not recommending at this time, given medications will likely be sufficient. DIAGNOSES #. Schizoaffective disorder, bipolar type, current episode depressed #. Stimulant (meth) use disorder, in sustained remission #. 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 LINUX VMWARE ADMINISTRATOR psychotropic medications held: -None, as not on any LINUX VMWARE ADMINISTRATOR psychotropic medications continued/changed: -None, as not on any New psychotropic medications initiated: - Risperdal 3 mg at bedtime-> 4 mg at bedtime on 10/20 - Lexapro 10 mg daily-20 mg daily on 10/20 - Standard unit prn agents, including Zyprexa prn agitation - Depakote ER 500 mg at bedtime Today's Changes: - stop nicotine patch -VPA level this weekend Programming: Patient will be treated in a therapeutic milieu with appropriate individual and group therapies. Education will be provided on diagnoses, medications, and treatments. Medical diagnoses: Per medicine #. Seasonal allergies - Claritin 10 mg daily Consult: None Tests: none Anticipated LOS: 5-7 days Disposition: Home with outpatient services ATTESTATION MASTER [employer]son Student Provider Attestation Tracy, Stefanie Loving APRN, CNP, have reviewed the documentation by the psychiatry SUPERVISOR CABINETMAKER student. I agree with the luis elements of documentation and I have edited and added as needed. Stefanie Loving APRN WALLPAPER PRINTER * Stefanie Loving NP - 10/24/2023 2:[address] [facility] PSYCHIATRY PROGRESS NOTE SUBJECTIVE Prior to interviewing the patient, I met with nursing and reviewed patient's clinical condition. Wediscussed clinical care both before and after the interview. I have reviewed the patient's clinicalcourse by review of records including previous notes, labs, and vital signs. Per nursing, the patient had the following behavioral events over the last 24- hours: none. Using multiple PRN medications. On psychiatric interview, the patient is found in his room. He has been wandering outside the nurses station, they report he has been waiting for his next dose of nicotine gum. Upon entering his roomhe inquires about starting Chantix, we discussed that we would stick with the nicotine replacement he currently has ordered. He reports continuing racing/manic thoughts. He states that he has been told he has bipolar and needs something for this manic phase. We discussed his PRNs with him and apossible mood stabilizer. He than asked about cogentin as he doesn't want to acquire TD, we discussed the use of cogentin and hydroxyzine together and their anticholinergic affects, he verbalized understanding. Overall, he discusses that he wants to go back in time and be with family, which he is calling his delusional thoughts. He did report pain in his lower back from a fall that happened weeks ago and wanted an MRI done, we did let him know that he can follow up outpatient for this once he leaves the hospital. We discussed that his insurance won't cover an IRTS stay, but he did report hewill go back to his moms in [place], [place] and would like services in the [place] area, I want every service that is available. Patient was cooperative throughout conversation. He has been medication complaint and denies any side effects. MEDICATIONS Scheduled Meds: Current Facility-Administered Medications Medication Dose Route Frequency Provider Last Rate Last Admin escitalopram (LEXAPRO) tablet 20 mg 20 mg Oral Daily Jay Garcia DO 20 mg at 10/24/23 0830 loratadine (CLARITIN) tablet 10 mg 10 mg Oral Daily Jay Garcia DO 10 mg at 10/24/23 0830 nicotine (NICODERM CQ) 14 MG/24HR 24 hr patch 1 patch 1 patch Transdermal Daily Stefanie Loving NP 1 patch at 10/24/23 0831 risperiDONE (risperDAL) tablet 4 mg 4 mg Oral At Bedtime Jay Garcia DO 4 mg at 10/23/23 1900 PRN Meds:. Current Facility-Administered Medications Medication Dose Route Frequency Provider Last Rate Last Admin acetaminophen (TYLENOL) tablet 650 mg 650 mg Oral Q4H PRN Jose R Manzanares APRN WALLPAPER PRINTER 650 mg at 10/21/23 1330 alum & mag hydroxide-simethicone (MAALOX) suspension 30 mL 30 mL Oral Q4H PRN Jose R Manzanares APRN WALLPAPER PRINTER chlorproMAZINE (THORAZINE) tablet 25 mg 25 mg Oral TID PRN Stefanie Loving NP 25 mg at 10/24/23 1000 cloNIDine (CATAPRES) tablet 0.1 mg 0.1 mg Oral TID PRN Stefanie Loving NP 0.1 mg at 10/24/23 1401 hydrOXYzine HCl (ATARAX) tablet 50 mg 50 mg Oral Q4H PRN Stefanie Loving NP 50 mg at 10/24/23 1157 melatonin tablet 3 mg 3 mg Oral At Bedtime PRN Jose R Manzanares APRN WALLPAPER PRINTER 3 mg at 10/23/23 1900 nicotine (COMMIT) lozenge 2 mg 2 mg Buccal Q1H PRN Stefanie Loving NP OLANZapine (zyPREXA) tablet 10 mg 10 mg Oral TID PRN Jay Garcia, DO 10 mg at 10/24/23 1302 Or OLANZapine (zyPREXA) injection 10 mg 10 mg Intramuscular TID PRN Jay Garcia, DO ALLERGIES Allergies Allergen Reactions Ancef [Cefazolin] MENTAL STATUS EXAM Vitals: BP 93/50 Pulse 65 Temp 97 ??F (36.1 ??C) (Temporal) Resp 16 Ht 1.702 m (5' 7) Wt84.1 kg (185 lb 8 oz) SpO2 97% BMI 29.05 kg/m?? Appearance: Alert, oriented, dressed in hospital scrubs, casually groomed Attitude: Cooperative Eye Contact: good Mood: okay Affect: anxious Speech: Normal range. Normal rhythm Psychomotor Behavior: No tremor, rigidity, akathisia, or psychomotor retardation Thought Process: Logical, goal directed Associations: No loose associations Thought Content: Denies SI or thoughts of SIB currently. Reports AVH. Denies CAH. Insight: Limited Judgment: Limited Oriented to: Person, place, and time Attention Span and Concentration: Limited Recent and Remote Memory: Limited Language: Turkish with appropriate syntax and vocabulary Fund of Knowledge: Average Muscle Strength and Tone: Grossly normal Gait and Station: Grossly normal LABS No results found for this or any previous visit (from the past 24 hour(s)). IMPRESSION This is a 38 year old male with a PMH of schizoaffective disorder, bipolar type, MDD, PTSD, and polysubstance abuse (THC, meth, possibly others) who presents with psychosis occurring in the setting of general stressors. The patient has a history of hospitalization in 2007. He has a previous diagnosis of a schizophrenia spectrum disorder but validity questioned while in custodial. He has not been engaged in treatment recently. He is signs of dissociation and quite graphic visual hallucinations likefaces in toast with him making contradictory statements at times with some concern there may be an element of malingering. He does report being depressed with him struggling currently. He would benefit from hospitalization for further evaluation and treatment. In terms of treatment, will further evaluate to determine most appropriate coarse. The patient doesa pronounced family history of neurological conditions with his father dying of suicide with MS in his 40s. He is at higher risk of this condition so will determine if additional testing is needed. In addition, the graphic natures of his hallucinations call into question whether the patient is withdrawing from Soma or abusing this agent. No other signs seen right now with the medication being held with careful monitoring. High suspicion he might have been misusing Soma with this not being continued as could have contributed, especially to dissociation. Diagnosing schizoaffective disorder given his history of this diagnosis and psychotic symptoms apart from a mood episode over the last few months with it being possible that muscle relaxants contributed although not sufficient enough to rule out this diagnosis. Patient interested in ECT but not recommending at this time, given medications will likely be sufficient. DIAGNOSES #. Schizoaffective disorder, bipolar type, current episode depressed #. Stimulant (meth) use disorder, in sustained remission #. 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 LINUX VMWARE ADMINISTRATOR psychotropic medications held: -None, as not on any LINUX VMWARE ADMINISTRATOR psychotropic medications continued/changed: -None, as not on any New psychotropic medications initiated: - Risperdal 3 mg at bedtime-> 4 mg at bedtime on 10/20 - Lexapro 10 mg daily-20 mg daily on 10/20 - Standard unit prn agents, including Zyprexa prn agitation Today's Changes: -start Depakote ER 500 mg at bedtime Programming: Patient will be treated in a therapeutic milieu with appropriate individual and group therapies. Education will be provided on diagnoses, medications, and treatments. Medical diagnoses: Per medicine #. Seasonal allergies - Claritin 10 mg daily Consult: None Tests: none Anticipated LOS: 5-7 days Disposition: Home with outpatient services ATTESTATION MASTER [employer]son Student Provider Attestation I, Stefanie Loving APRN, CNP, have reviewed the documentation by the psychiatry SUPERVISOR CABINETMAKER student. I agree with the luis elements of documentation and I have edited and added as needed. Stefanie Loving APRN WALLPAPER PRINTER * Anel Ritter LSW - 10/24/2023 11:59 AM CDT 1:1 with pt. SW talked to pt about how his insurance will not cover IRTS. Pt asked if he could signup for different insurance. Discussed Pt financial could come chat with him but insurance can take up to 45 days and we will need to figure out other discharge plans still. Pt stated well I won't beready to leave here for at least a couple of months. I won't be stable for a couple of months at least. I have this delusion that I am going to wake up from a coma. Referral sent to [facility] for [facility], Therapy and med management in [place]. * Anel Ritter LSW - 10/24/2023 11:47 AM CDT Resource for Crisis Bed given to pt. [address] [place] [address] Complete a phone screening call [phone]. Walk in anytime. Open daily from 9 a.m. to 9 pm. After 5 p.m., use the buzzer at the [facility] entrance. [address] [place] [address] * Stefanie Loving NP - 10/23/2023 1:[address] [facility] PSYCHIATRY PROGRESS NOTE SUBJECTIVE Prior to interviewing the patient, I met with nursing and reviewed patient's clinical condition. Wediscussed clinical care both before and after the interview. I have reviewed the patient's clinicalcourse by review of records including previous notes, labs, and vital signs. Per nursing, the patient had the following behavioral events over the last 24- hours: none. Continues to report AH. Using multiple PRN medications. On psychiatric interview, the patient is found in his room. He is woken from a nap. He notes that he feels okay today. He states he does not find Hydroxyzine to be very helpful for anxiety, asks about trying something else. He had brought up in conversation that Xanax has helped in the past, though we reviewed that this type of medication would not be ordered while in the hospital. After discussion, patient is in agreement to discontinue the Haldol, Benadryl, Ativan combination and will try Thorazine PRN for any severe agitation. He notes that this has helped in the past. Will add ClonidinePRN for anxiety and have him try this to see if more effective than current PRN medications. Patient has been noted to be frequently asking for PRN medications for agitation or anxiety even when staff have reported him sleeping in bed or smiling and socializing with peers. Did encourage patient to continue to attend groups and work on building nonpharmacologic coping skills to manage his anxiety.He does state that he will try though notes that he struggles as this usually does not work. Did also review with patient what kind of services he would need at discharge. Patient notes that he is interested in considering an IRTS program for more intensive MH treatment. Will see what options mightbe available as patient is willing to consider going anywhere in the state. Throughout the interview, patient appears calm and relaxed while lying in bed. Does not appear agitated or to be respondingto internal stimuli. MEDICATIONS Scheduled Meds: Current Facility-Administered Medications Medication Dose Route Frequency Provider Last Rate Last Admin escitalopram (LEXAPRO) tablet 20 mg 20 mg Oral Daily Jay Garcia, DO 20 mg at 10/23/23 0845 loratadine (CLARITIN) tablet 10 mg 10 mg Oral Daily Jay Garcia DO 10 mg at 10/23/23 0844 nicotine (NICODERM CQ) 14 MG/24HR 24 hr patch 1 patch 1 patch Transdermal Daily Stefanie Loving NP 1 patch at 10/23/23 0847 risperiDONE (risperDAL) tablet 4 mg 4 mg Oral At Bedtime Jay Garcia, DO 4 mg at 10/22/23 1900 PRN Meds:. Current Facility-Administered Medications Medication Dose Route Frequency Provider Last Rate Last Admin acetaminophen (TYLENOL) tablet 650 mg 650 mg Oral Q4H PRN Jose R Manzanares APRN WALLPAPER PRINTER 650 mg at 10/21/23 1330 alum & mag hydroxide-simethicone (MAALOX) suspension 30 mL 30 mL Oral Q4H PRN Jose R Manzanares APRN WALLPAPER PRINTER chlorproMAZINE (THORAZINE) tablet 25 mg 25 mg Oral TID PRN Stefanie Loving SUPERVISOR CABINETMAKER 25 mg at 10/23/23 1542 cloNIDine (CATAPRES) tablet 0.1 mg 0.1 mg Oral TID PRN Stefanie Loving SUPERVISOR CABINETMAKER 0.1 mg at 10/23/23 1545 hydrOXYzine HCl (ATARAX) tablet 50 mg 50 mg Oral Q4H PRN Stefanie Loving SUPERVISOR CABINETMAKER 50 mg at 10/23/23 1641 melatonin tablet 3 mg 3 mg Oral At Bedtime PRN Jose R Manzanares APRN WALLPAPER PRINTER 3 mg at 10/22/23 1900 nicotine polacrilex (NICORETTE) gum 4 mg 4 mg Buccal Q1H PRN Stefanie Loving SUPERVISOR CABINETMAKER 4 mg at 10/23/23 1542 OLANZapine (zyPREXA) tablet 10 mg 10 mg Oral TID PRN Jay Garcia, DO 10 mg at 10/23/23 1745 Or OLANZapine (zyPREXA) injection 10 mg 10 mg Intramuscular TID PRN Jay Garcia, DO ALLERGIES Allergies Allergen Reactions Ancef [Cefazolin] MENTAL STATUS EXAM Vitals: BP 129/85 Pulse 98 Temp 98.4 ??F (36.9 ??C) (Temporal) Resp 14 Ht 1.702 m (5' 7) Wt 84.1 kg (185 lb 8 oz) SpO2 96% BMI 29.05 kg/m?? Appearance: Alert, oriented, dressed in hospital scrubs, casually groomed Attitude: Cooperative Eye Contact: good Mood: okay Affect: mood congruent, appears relaxed Speech: Normal range. Normal rhythm Psychomotor Behavior: No tremor, rigidity, akathisia, or psychomotor retardation Thought Process: Logical, goal directed Associations: No loose associations Thought Content: Denies SI or thoughts of SIB currently. Reports AVH. Denies CAH. Insight: Limited Judgment: Limited Oriented to: Person, place, and time Attention Span and Concentration: Limited Recent and Remote Memory: Limited Language: Turkish with appropriate syntax and vocabulary Fund of Knowledge: Average Muscle Strength and Tone: Grossly normal Gait and Station: Grossly normal LABS No results found for this or any previous visit (from the past 24 hour(s)). IMPRESSION This is a 38 year old male with a PMH of schizoaffective disorder, bipolar type, MDD, PTSD, and polysubstance abuse (THC, meth, possibly others) who presents with psychosis occurring in the setting of general stressors. The patient has a history of hospitalization in 2007. He has a previous diagnosis of a schizophrenia spectrum disorder but validity questioned while in custodial. He has not been engaged in treatment recently. He is signs of dissociation and quite graphic visual hallucinations likefaces in toast with him making contradictory statements at times with some concern there may be an element of malingering. He does report being depressed with him struggling currently. He would benefit from hospitalization for further evaluation and treatment. In terms of treatment, will further evaluate to determine most appropriate coarse. The patient doesa pronounced family history of neurological conditions with his father dying of suicide with MS in his 40s. He is at higher risk of this condition so will determine if additional testing is needed. In addition, the graphic natures of his hallucinations call into question whether the patient is withdrawing from Soma or abusing this agent. No other signs seen right now with the medication being held with careful monitoring. High suspicion he might have been misusing Soma with this not being continued as could have contributed, especially to dissociation. Diagnosing schizoaffective disorder given his history of this diagnosis and psychotic symptoms apart from a mood episode over the last few months with it being possible that muscle relaxants contributed although not sufficient enough to rule out this diagnosis. Patient interested in ECT but not recommending at this time, given medications will likely be sufficient. DIAGNOSES #. Schizoaffective disorder, bipolar type, current episode depressed #. Stimulant (meth) use disorder, in sustained remission #. 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 LINUX VMWARE ADMINISTRATOR psychotropic medications held: -None, as not on any LINUX VMWARE ADMINISTRATOR psychotropic medications continued/changed: -None, as not on any New psychotropic medications initiated: - Risperdal 3 mg at bedtime-> 4 mg at bedtime on 10/20 - Lexapro 10 mg daily-20 mg daily on 10/20 - Standard unit prn agents, including Zyprexa prn agitation Today's Changes: - stop Haldol/Benadryl/Ativan combination (pt seems focused on receiving Ativan). Will add Thorazine 25 mg PO TID prn agitation as 2nd choice. - add Clonidine 0.1 mg TID prn anxiety/restlessness Programming: Patient will be treated in a therapeutic milieu with appropriate individual and group therapies. Education will be provided on diagnoses, medications, and treatments. Medical diagnoses: Per medicine #. Seasonal allergies - Claritin 10 mg daily Consult: None Tests: none Anticipated LOS: 5-7 days Disposition: Home with outpatient services ATTESTATION Stefanie Loving CNP * Anel Ritter LSW - 10/23/2023 1:02 PM CDT 1:1 with pt. SW saw pt in room laying in bed. SW asked pt about his interest in case management. Ptstate he was interested in resources on were he can get it as he does not know where to go. SW mentioned that [place] has [facility] that offers CM , therapy, and med management in the same spot if he was interested. Pt asked of there was any other closer here as he might want to stay in this area. SW gave him a few in the area and stated it can be discussed more when pt is readyto discharge and knows were he is going. * Anel Ritter LSW - 10/22/2023 2:29 PM CDT 1:1 with pt. Pt was out of his room today. He stated he was okay and was looking for someone to play cards with. * Stefanie Loving NP - 10/22/2023 12:[address] [facility] PSYCHIATRY PROGRESS NOTE SUBJECTIVE Prior to interviewing the patient, I met with nursing and reviewed patient's clinical condition. Wediscussed clinical care both before and after the interview. I have reviewed the patient's clinicalcourse by review of records including previous notes, labs, and vital signs. Per nursing, the patient had the following behavioral events over the last 24- hours: none. Continues to report AH. Using multiple PRN medications. On psychiatric interview, the patient is found in his room. He had just taken a shower. He notes that he intends on staying out of his room a little more this afternoon. He states that he is still struggling today. When asked to elaborate he states that it is when the mental attacks come. He has a hard time describing what this means. He notes that he has intrusive thoughts at times.He notes that he slept fine last night. Did discuss his PRN use, he is encouraged to monitor how he feels after taking Zyprexa versus the Haldol as needed to see which helps more with his intrusive thoughts. He is encouraged to spend more time up and to attend groups today to find other ways of managing his anxiety versus relying on medication. MEDICATIONS Scheduled Meds: Current Facility-Administered Medications Medication Dose Route Frequency Provider Last Rate Last Admin escitalopram (LEXAPRO) tablet 20 mg 20 mg Oral Daily Jay Garcia DO 20 mg at 10/22/23 0815 loratadine (CLARITIN) tablet 10 mg 10 mg Oral Daily Jay Garcia DO 10 mg at 10/22/23 0815 nicotine (NICODERM CQ) 14 MG/24HR 24 hr patch 1 patch 1 patch Transdermal Daily Stefanie Loving, NICOLE 1 patch at 10/22/23 1454 risperiDONE (risperDAL) tablet 4 mg 4 mg Oral At Bedtime Jay Garcia DO 4 mg at 10/22/23 1900 PRN Meds:. Current Facility-Administered Medications Medication Dose Route Frequency Provider Last Rate Last Admin acetaminophen (TYLENOL) tablet 650 mg 650 mg Oral Q4H PRN Jose R Manzanares APRN WALLPAPER PRINTER 650 mg at 10/21/23 1330 alum & mag hydroxide-simethicone (MAALOX) suspension 30 mL 30 mL Oral Q4H PRN Jose R Manzanares APRN WALLPAPER PRINTER haloperidol (HALDOL) tablet 5 mg 5 mg Oral Q8H PRN Jay Garcia DO 5 mg at 10/22/23 1554 And LORazepam (ATIVAN) tablet 2 mg 2 mg Oral Q8H PRN Jay Garcia DO 2 mg at 10/22/23 1554 And diphenhydrAMINE (BENADRYL) capsule 50 mg 50 mg Oral Q8H PRN Jay Garcia, DO 50 mg at 10/22/23 1554 haloperidol lactate (HALDOL) injection 5 mg 5 mg Intramuscular Q8H PRN Jay Garcia, DO 5 mg at 10/18/231901 And LORazepam (ATIVAN) injection 2 mg 2 mg Intramuscular Q8H PRN Jay Garcia, DO 2 mg at 10/18/231901 And diphenhydrAMINE (BENADRYL) injection 50 mg 50 mg Intramuscular Q8H PRN Jay Garcia, DO 50 mgat 10/18/231900 hydrOXYzine HCl (ATARAX) tablet 50 mg 50 mg Oral Q4H PRN Jay Garcia, DO 50 mg at 10/22/23 190 melatonin tablet 3 mg 3 mg Oral At Bedtime PRN Jose R Manzanares APRN WALLPAPER PRINTER 3 mg at 10/22/23 190 nicotine (NICORETTE) gum 2 mg 2 mg Buccal Q1H PRN Jose R Manzanares APRN WALLPAPER PRINTER 2 mg at 10/22/23 1818 OLANZapine (zyPREXA) tablet 10 mg 10 mg Oral TID PRN Jay Garcia, DO 10 mg at 10/22/23 1726 Or OLANZapine (zyPREXA) injection 10 mg 10 mg Intramuscular TID PRN Jay Garcia, DO ALLERGIES Allergies Allergen Reactions Ancef [Cefazolin] MENTAL STATUS EXAM Vitals: BP 135/86 Pulse 108 Temp 98.9 ??F (37.2 ??C) (Temporal) Resp 18 Ht 1.702 m (5' 7) Wt 84.1 kg (185 lb 8 oz) SpO2 96% BMI 29.05 kg/m?? Appearance: Alert, oriented, dressed in hospital scrubs, casually groomed Attitude: Cooperative Eye Contact: good Mood: okay Affect: Restricted range of affect, mood congruent Speech: Normal range. Normal rhythm Psychomotor Behavior: No tremor, rigidity, akathisia, or psychomotor retardation Thought Process: Logical, goal directed Associations: No loose associations Thought Content: Denies SI or thoughts of SIB currently. Reports AVH. Denies CAH. Elements of dissociation. Insight: Poor Judgment: Poor Oriented to: Person, place, and time Attention Span and Concentration: Limited Recent and Remote Memory: Limited Language: Turkish with appropriate syntax and vocabulary Fund of Knowledge: Average Muscle Strength and Tone: Grossly normal Gait and Station: Grossly normal LABS No results found for this or any previous visit (from the past 24 hour(s)). IMPRESSION This is a 38 year old male with a PMH of schizoaffective disorder, bipolar type, MDD, PTSD, and polysubstance abuse (THC, meth, possibly others) who presents with psychosis occurring in the setting of general stressors. The patient has a history of hospitalization in 2007. He has a previous diagnosis of a schizophrenia spectrum disorder but validity questioned while in custodial. He has not been engaged in treatment recently. He is signs of dissociation and quite graphic visual hallucinations likefaces in toast with him making contradictory statements at times with some concern there may be an element of malingering. He does report being depressed with him struggling currently. He would benefit from hospitalization for further evaluation and treatment. In terms of treatment, will further evaluate to determine most appropriate coarse. The patient doesa pronounced family history of neurological conditions with his father dying of suicide with MS in his 40s. He is at higher risk of this condition so will determine if additional testing is needed. In addition, the graphic natures of his hallucinations call into question whether the patient is withdrawing from Soma or abusing this agent. No other signs seen right now with the medication being held with careful monitoring. Today: Patient continues to report psychosis with Risperdal being further increased. High suspicionhe might have been misusing Soma with this not being continued as could have contributed, especially to dissociation. Diagnosing schizoaffective disorder given his history of this diagnosis and psychotic symptoms apart from a mood episode over the last few months with it being possible that muscle relaxants contributed although not sufficient enough to rule out this diagnosis. Patient interested in ECT but not recommending at this time, given medications will likely be sufficient. DIAGNOSES #. Schizoaffective disorder, bipolar type, current episode depressed #. Stimulant (meth) use disorder, in sustained remission #. 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 LINUX VMWARE ADMINISTRATOR psychotropic medications held: -None, as not on any LINUX VMWARE ADMINISTRATOR psychotropic medications continued/changed: -None, as not on any New psychotropic medications initiated: - Risperdal 3 mg at bedtime-> 4 mg at bedtime on 10/20 - Lexapro 10 mg daily-20 mg daily on 10/20 - Standard unit prn agents, including Zyprexa prn agitation Today's Changes: - will add nicotine patch 14 mg daily - Orthostatic vitals x 1 Programming: Patient will be treated in a therapeutic milieu with appropriate individual and group therapies. Education will be provided on diagnoses, medications, and treatments. Medical diagnoses: Per medicine #. Seasonal allergies - Claritin 10 mg daily Consult: None Tests: MARLINE, Lyme pending Anticipated LOS: 5-7 days Disposition: Home with outpatient services TREATMENT TEAM CARE PLAN Progress: Continued symptoms. Continued Stay Criteria/Rationale: Continued symptoms without sufficient improvement/resolution. Medical/Physical: See above. Precautions: See above. Plan: Continue inpatient care with unit support and medication management. Rationale for change in precautions or plan: NA due to no change. Participants: Stefanie Loving NP, Nursing, SW, OT. The patient's care was discussed with the treatment team and chart notes were reviewed. ATTESTATION Stefanie Loving WALLPAPER PRINTER * Jay Garcia, - 10/21/2023 7:[address] [facility] PSYCHIATRY PROGRESS NOTE SUBJECTIVE Prior to interviewing the patient, I met with nursing and reviewed patient's clinical condition. Wediscussed clinical care both before and after the interview. I have reviewed the patient's clinicalcourse by review of records including previous notes, labs, and vital signs. Per nursing, the patient had the following behavioral events over the last 24- hours: none. Continues to report AH. Used 30 mg of Zyprexa prn in the last 24 hours in addition to 10 mg Haldol/100 mg Benadryl/4 mg of Ativan. On psychiatric interview, the patient notes that he is doing alright today. He notes that he wants to do ECT. He notes that he talked to one of the nurses about this treatment. He notes that he has done it before. He notes that he did it before for depression. Discussed this treatment and this recommendation. He notes having psychosis apart from mood episode and substance use over the last 6 months. He consents to increasing Lexapro and Risperdal. He notes that he is tolerating them well. He notes that his allergies have been bad the last couple of days. He notes that he would like to take Claritin. MEDICATIONS Scheduled Meds: Current Facility-Administered Medications Medication Dose Route Frequency Provider Last Rate Last Admin ??? escitalopram (LEXAPRO) tablet 10 mg 10 mg Oral Daily Jay Garcia, DO 10 mg at 10/20/23 0852 ??? loratadine (CLARITIN) tablet 10 mg 10 mg Oral Daily Jay Garcia, DO 10 mg at 10/20/23 1611 ??? risperiDONE (risperDAL) tablet 3 mg 3 mg Oral At Bedtime Jay Garcia, DO 3 mg at 10/20/232008 PRN Meds:. Current Facility-Administered Medications Medication Dose Route Frequency Provider Last Rate Last Admin ??? acetaminophen (TYLENOL) tablet 650 mg 650 mg Oral Q4H PRN Jose R Manzanares, ESA WALLPAPER PRINTER ? ? alum & mag hydroxide-simethicone (MAALOX) suspension 30 mL 30 mL Oral Q4H PRN Jose R Manzanares, ESA WALLPAPER PRINTER ??? haloperidol (HALDOL) tablet 5 mg 5 mg Oral Q8H PRN Jay Garcia, DO 5 mg at 10/20/23 1637 And ??? LORazepam (ATIVAN) tablet 2 mg 2 mg Oral Q8H PRN Jay Garcia, DO 2 mg at 10/20/23 1637 And ??? diphenhydrAMINE (BENADRYL) capsule 50 mg 50 mg Oral Q8H PRN Jay Garcia, DO 50 mg at 10/20/23 1637 ??? haloperidol lactate (HALDOL) injection 5 mg 5 mg Intramuscular Q8H PRN Jay Garcia, DO 5mg at 10/18/23 1902 And ??? LORazepam (ATIVAN) injection 2 mg 2 mg Intramuscular Q8H PRN Jay Garcia, DO 2 mg at 10/18/23 190 And ??? diphenhydrAMINE (BENADRYL) injection 50 mg 50 mg Intramuscular Q8H PRN Jay Garcia, DO 50 mg at 10/18/23 1901 ??? hydrOXYzine HCl (ATARAX) tablet 50 mg 50 mg Oral Q4H PRN Jay Garcia, DO 50 mg at 10/21/23453 ??? melatonin tablet 3 mg 3 mg Oral At Bedtime PRN Jose R Manzanares APRN WALLPAPER PRINTER 3 mg at 10/20/232008 ??? nicotine (NICORETTE) gum 2 mg 2 mg Buccal Q1H PRN Jose R Manzanares APRN WALLPAPER PRINTER 2 mg at 10/21/23453 ??? OLANZapine (zyPREXA) tablet 10 mg 10 mg Oral TID PRN Jay Garcia, DO 10 mg at 10/21/23453 Or ??? OLANZapine (zyPREXA) injection 10 mg 10 mg Intramuscular TID PRN Jay Garcia, DO ALLERGIES Allergies Allergen Reactions ??? Ancef [Cefazolin] MENTAL STATUS EXAM Vitals: BP 105/53 Pulse 60 Temp 97.7 ??F (36.5 ??C) (Temporal) Resp 16 Ht 1.702 m (5' 7) Wt 84.1 kg (185 lb 8 oz) SpO2 95% BMI 29.05 kg/m?? Appearance: Alert, oriented, dressed in hospital scrubs Attitude: Cooperative to an extent Eye Contact: Poor Mood: Down Affect: Restricted range of affect, mood congruent Speech: Normal range. Normal rhythm Psychomotor Behavior: No tremor, rigidity, akathisia, or psychomotor retardation Thought Process: Logical, goal directed Associations: No loose associations Thought Content: Denies SI or thoughts of SIB currently. Reports AVH. Denies CAH. Elements of dissociation. Insight: Poor Judgment: Poor Oriented to: Person, place, and time Attention Span and Concentration: Limited Recent and Remote Memory: Limited Language: Turkish with appropriate syntax and vocabulary Fund of Knowledge: Average Muscle Strength and Tone: Grossly normal Gait and Station: Grossly normal LABS No results found for this or any previous visit (from the past 24 hour(s)). IMPRESSION This is a 38 year old male with a PMH of schizoaffective disorder, bipolar type, MDD, PTSD, and polysubstance abuse (THC, meth, possibly others) who presents with psychosis occurring in the setting of general stressors. The patient has a history of hospitalization in 2007. He has a previous diagnosis of a schizophrenia spectrum disorder but validity questioned while in custodial. He has not been engaged in treatment recently. He is signs of dissociation and quite graphic visual hallucinations likefaces in toast with him making contradictory statements at times with some concern there may be an element of malingering. He does report being depressed with him struggling currently. He would benefit from hospitalization for further evaluation and treatment. ?? In terms of treatment, will further evaluate to determine most appropriate coarse. The patient doesa pronounced family history of neurological conditions with his father dying of suicide with MS in his 40s. He is at higher risk of this condition so will determine if additional testing is needed. In addition, the graphic natures of his hallucinations call into question whether the patient is withdrawing from Soma or abusing this agent. No other signs seen right now with the medication being held with careful monitoring. Today: Patient continues to report psychosis with Risperdal being further increased. High suspicionhe might have been misusing Soma with this not being continued as could have contributed, especially to dissociation. Diagnosing schizoaffective disorder given his history of this diagnosis and psychotic symptoms apart from a mood episode over the last few months with it being possible that muscle relaxants contributed although not sufficient enough to rule out this diagnosis. Patient interested in ECT but not recommending at this time, given medications will likely be sufficient. DIAGNOSES #. Schizoaffective disorder, bipolar type, current episode depressed #. Stimulant (meth) use disorder, in sustained remission #. R/O sedative-hypnotic (Soma) use disorder PLAN Location: Unit 5 Legal Status: Orders Placed This Encounter Voluntary Safety Assessment: Behavioral Orders Procedures ??? Code 1 - Restrict to Unit ??? Routine Programming As clinically indicated ??? Status 15 Every 15 minutes. LINUX VMWARE ADMINISTRATOR psychotropic medications held: ?? -None, as not on any ?? LINUX VMWARE ADMINISTRATOR psychotropic medications continued/changed: ?? -None, as not on any ?? New psychotropic medications initiated: - Risperdal 3 mg at bedtime - Lexapro 10 mg daily - Standard unit prn agents, including Zyprexa prn agitation Today's Changes: - Increase Risperdal to 4 mg - Increase Lexapro to 20 mg - Start Claritin for allergies - Orthostatic vitals Programming: Patient will be treated in a therapeutic milieu with appropriate individual and group therapies. Education will be provided on diagnoses, medications, and treatments. Medical diagnoses: Per medicine #. Seasonal allergies - Claritin 10 mg daily Consult: None Tests: MARLINE, Lyme pending Anticipated LOS: 5-7 days Disposition: Home with outpatient services ATTESTATION Dr. Jay Garcia Psychiatrist Video Visit: Patient has given verbal consent for video visit?: Yes Type of Service: video visit for mental health treatment Reason for [place] Visit: [place] Originating Site (patient location): [facility] Distant Site (provider location): Remote Location Mode of Communication: Video Conference via [employer] Time of Service: Date: 10/21/2023 Start:700 end: 730 * Jay Garcia DO - 10/20/2023 7:[address] [facility] PSYCHIATRY PROGRESS NOTE SUBJECTIVE Prior to interviewing the patient, I met with nursing and reviewed patient's clinical condition. Wediscussed clinical care both before and after the interview. I have reviewed the patient's clinicalcourse by review of records including previous notes, labs, and vital signs. Per nursing, the patient had the following behavioral events over the last 24- hours: none. Taking multiple prn agents, including Zyprexa and Haldol/Benadryl/Ativan. Frequent requests for prn agents. Spending most of the day in bed. On psychiatric interview, the patient notes that he is doing alright today. He notes that the voices continue to be bad. He notes that they are little better, but every time it gets a little better it comes back. He notes voices saying fucker, joker. He denies any problems with Risperdal. He consent to further increasing this medication. He denies any dizziness or feeling like he is going to fall. MEDICATIONS Scheduled Meds: Current Facility-Administered Medications Medication Dose Route Frequency Provider Last Rate Last Admin ??? escitalopram (LEXAPRO) tablet 10 mg 10 mg Oral Daily Jay Garcia DO 10 mg at 10/19/23 0846 ??? risperiDONE (risperDAL) tablet 3 mg 3 mg Oral At Bedtime Jay Garcia DO PRN Meds:. Current Facility-Administered Medications Medication Dose Route Frequency Provider Last Rate Last Admin ??? acetaminophen (TYLENOL) tablet 650 mg 650 mg Oral Q4H PRN Jose R Manzanares APRN WALLPAPER PRINTER ? ? alum & mag hydroxide-simethicone (MAALOX) suspension 30 mL 30 mL Oral Q4H PRN Jose R Manzanares APRN CNP ??? haloperidol (HALDOL) tablet 5 mg 5 mg Oral Q8H PRN Jay Garcia, DO 5 mg at 10/20/23 0654 And ??? LORazepam (ATIVAN) tablet 2 mg 2 mg Oral Q8H PRN Jay Garcia, DO 2 mg at 10/20/23 0654 And ??? diphenhydrAMINE (BENADRYL) capsule 50 mg 50 mg Oral Q8H PRN Jay Garcia, DO 50 mg at 10/20/23 0654 ??? haloperidol lactate (HALDOL) injection 5 mg 5 mg Intramuscular Q8H PRN Jay Garcia, DO 5mg at 10/18/231901 And ??? LORazepam (ATIVAN) injection 2 mg 2 mg Intramuscular Q8H PRN Jay Garcia, DO 2 mg at 10/18/231901 And ??? diphenhydrAMINE (BENADRYL) injection 50 mg 50 mg Intramuscular Q8H PRN Jay Garcia, DO 50 mg at 10/18/23 190 ??? hydrOXYzine HCl (ATARAX) tablet 50 mg 50 mg Oral Q4H PRN Jay Garcia, DO ??? melatonin tablet 3 mg 3 mg Oral At Bedtime PRN Jose R Manzanares APRN CNP 3 mg at 10/19/232005 ??? nicotine (NICORETTE) gum 2 mg 2 mg Buccal Q1H PRN Jose R Manzanares APRN CNP 2 mg at 10/20/23 0520 ??? OLANZapine (zyPREXA) tablet 10 mg 10 mg Oral TID PRN Jay Garcia, DO 10 mg at 10/20/23 0519 Or ??? OLANZapine (zyPREXA) injection 10 mg 10 mg Intramuscular TID PRN Jay Garcia, DO ALLERGIES Allergies Allergen Reactions ??? Ancef [Cefazolin] MENTAL STATUS EXAM Vitals: BP 119/83 Pulse 72 Temp 97.9 ??F (36.6 ??C) (Temporal) Resp 16 Ht 1.702 m (5' 7) Wt 84.1 kg (185 lb 8 oz) SpO2 97% BMI 29.05 kg/m?? Appearance: Alert, oriented, dressed in hospital scrubs Attitude: Cooperative to an extent Eye Contact: Poor Mood: Fine Affect: Restricted range of affect, mood congruent Speech: Normal range. Normal rhythm Psychomotor Behavior: No tremor, rigidity, akathisia, or psychomotor retardation Thought Process: Logical, goal directed Associations: No loose associations Thought Content: Denies SI or thoughts of SIB currently. Reports AVH. Denies CAH. Elements of dissociation. Insight: Poor Judgment: Poor Oriented to: Person, place, and time Attention Span and Concentration: Limited Recent and Remote Memory: Limited Language: Turkish with appropriate syntax and vocabulary Fund of Knowledge: Average Muscle Strength and Tone: Grossly normal Gait and Station: Grossly normal LABS Recent Results (from the past 24 hour(s)) Extra Green Top (Bellflower Heparin) Tube Collection Time: 10/19/23 11:11 AM Result Value Ref Range Hold Specimen JIC IMPRESSION This is a 38 year old male with a PMH of schizoaffective disorder, bipolar type, MDD, PTSD, and polysubstance abuse (THC, meth, possibly others) who presents with psychosis occurring in the setting of general stressors. The patient has a history of hospitalization in 2007. He has a previous diagnosis of a schizophrenia spectrum disorder but validity questioned while in custodial. He has not been engaged in treatment recently. He is signs of dissociation and quite graphic visual hallucinations likefaces in toast with him making contradictory statements at times with some concern there may be an element of malingering. He does report being depressed with him struggling currently. He would benefit from hospitalization for further evaluation and treatment. ?? In terms of treatment, will further evaluate to determine most appropriate coarse. The patient doesa pronounced family history of neurological conditions with his father dying of suicide with MS in his 40s. He is at higher risk of this condition so will determine if additional testing is needed. In addition, the graphic natures of his hallucinations call into question whether the patient is withdrawing from Soma or abusing this agent. No other signs seen right now with the medication being held with careful monitoring. Today: Patient continues to report psychosis with Risperdal being further increased. High suspicionhe might have been misusing Soma with this not being continued as could have contributed, especially to dissociation. There could be some element of primary gain being in the hospital with some of the patient's reports being inconsistent. Will continue to treat regardless and further evaluate. DIAGNOSES #. Unspecified psychotic disorder #. Unspecified mood disorder #. Stimulant (meth) use disorder, in sustained remission PLAN Location: Unit 5 Legal Status: Orders Placed This Encounter Voluntary Safety Assessment: Behavioral Orders Procedures ??? Code 1 - Restrict to Unit ??? Routine Programming As clinically indicated ??? Status 15 Every 15 minutes. LINUX VMWARE ADMINISTRATOR psychotropic medications held: ?? -None, as not on any ?? LINUX VMWARE ADMINISTRATOR psychotropic medications continued/changed: ?? -None, as not on any ?? New psychotropic medications initiated: - Risperdal 2 mg at bedtime - Lexapro 10 mg daily - Standard unit prn agents, including Zyprexa prn agitation Today's Changes: - Increase Risperdal to 3 mg at bedtime Programming: Patient will be treated in a therapeutic milieu with appropriate individual and group therapies. Education will be provided on diagnoses, medications, and treatments. Medical diagnoses: Per medicine Consult: None Tests: A1c, Lipid, B12, Folic Acid, MARLINE, Lyme Anticipated LOS: 5-7 days Disposition: Home with outpatient services ATTESTATION Dr. Jay Garcia Psychiatrist Video Visit: Patient has given verbal consent for video visit?: Yes Type of Service: video visit for mental health treatment Reason for Video Visit: [place] Originating Site (patient location): [facility] Distant Site (provider location): Remote Location Mode of Communication: Video Conference via [employer] Time of Service: Date: 10/20/2023 Start:930 end: 945 * Anel Ritter LSW - 10/19/2023 2:10 PM CDT 1:1 with pt. Pt stated that he was doing okay and did not want to talk as he wanted to go back to sleep. * Jay Garcia DO - 10/19/2023 8:[address] [facility] PSYCHIATRY PROGRESS NOTE SUBJECTIVE Prior to interviewing the patient, I met with nursing and reviewed patient's clinical condition. Wediscussed clinical care both before and after the interview. I have reviewed the patient's clinicalcourse by review of records including previous notes, labs, and vital signs. Per nursing, the patient had the following behavioral events over the last 24- hours: none. Taking multiple prn agents. Spending most of the day in bed. On psychiatric interview, the patient notes that he has been trying to get out of bed during the day. He notes that he recognizes some people here. He notes that they are his watches and followers.He notes that they are his shape shifters. He notes that he has no plans to do anything to these people. He notes that he is tolerating the medications alright. He consents to further increasing the Risperdal. He notes that he feels a little better in terms of his mind. He denies any dizziness, excess sedation, or feeling like he is going to pass out. He denies any muscle rigidity. He denies any acute concerns. MEDICATIONS Scheduled Meds: Current Facility-Administered Medications Medication Dose Route Frequency Provider Last Rate Last Admin ??? escitalopram (LEXAPRO) tablet 10 mg 10 mg Oral Daily Jay Garcia, DO 10 mg at 10/18/23 1052 ??? risperiDONE (risperDAL) tablet 1 mg 1 mg Oral At Bedtime Jay Garcia, DO 1 mg at 10/18/232005 PRN Meds:. Current Facility-Administered Medications Medication Dose Route Frequency Provider Last Rate Last Admin ??? acetaminophen (TYLENOL) tablet 650 mg 650 mg Oral Q4H PRN Jose R Manzanares APRN WALLPAPER PRINTER ? ? alum & mag hydroxide-simethicone (MAALOX) suspension 30 mL 30 mL Oral Q4H PRN Jose R Manzanares APRN WALLPAPER PRINTER ??? haloperidol (HALDOL) tablet 5 mg 5 mg Oral Q8H PRN Jay Garcia, DO And ??? LORazepam (ATIVAN) tablet 2 mg 2 mg Oral Q8H PRN Jay Garcia, DO And ??? diphenhydrAMINE (BENADRYL) capsule 50 mg 50 mg Oral Q8H PRN Jay Garcia, DO ??? haloperidol lactate (HALDOL) injection 5 mg 5 mg Intramuscular Q8H PRN Jay Garcia, DO 5mg at 10/18/231901 And ??? LORazepam (ATIVAN) injection 2 mg 2 mg Intramuscular Q8H PRN Jay Garcia, DO 2 mg at 10/18/231901 And ??? diphenhydrAMINE (BENADRYL) injection 50 mg 50 mg Intramuscular Q8H PRN Jay Garcia, DO 50 mg at 10/18/231900 ??? hydrOXYzine HCl (ATARAX) tablet 25 mg 25 mg Oral Q4H PRN Jose R Manzanares APRN WALLPAPER PRINTER 25 mg at 10/19/2338 ??? melatonin tablet 3 mg 3 mg Oral At Bedtime PRN Jose R Manzanares APRN WALLPAPER PRINTER 3 mg at 10/18/232005 ??? nicotine (NICORETTE) gum 2 mg 2 mg Buccal Q1H PRN Jose R Manzanares APRN WALLPAPER PRINTER 2 mg at 10/18/231758 ??? OLANZapine (zyPREXA) tablet 10 mg 10 mg Oral TID PRN Jay Garcia, DO 10 mg at 10/19/2338 Or ??? OLANZapine (zyPREXA) injection 10 mg 10 mg Intramuscular TID PRN Jay Garcia, DO ALLERGIES Allergies Allergen Reactions ??? Ancef [Cefazolin] MENTAL STATUS EXAM Vitals: BP 106/63 Pulse 57 Temp 97.3 ??F (36.3 ??C) (Temporal) Resp 17 Ht 1.702 m (5' 7) Wt 84.1 kg (185 lb 8 oz) SpO2 96% BMI 29.05 kg/m?? Appearance: Alert, oriented, dressed in hospital scrubs Attitude: Cooperative to an extent Eye Contact: Poor Mood: Fine Affect: Restricted range of affect, mood congruent Speech: Normal range. Normal rhythm Psychomotor Behavior: No tremor, rigidity, akathisia, or psychomotor retardation Thought Process: Logical, goal directed Associations: No loose associations Thought Content: Denies SI or thoughts of SIB currently. Reports AVH. Denies CAH. Elements of dissociation. Insight: Poor Judgment: Poor Oriented to: Person, place, and time Attention Span and Concentration: Limited Recent and Remote Memory: Limited Language: Turkish with appropriate syntax and vocabulary Fund of Knowledge: Average Muscle Strength and Tone: Grossly normal Gait and Station: Grossly normal LABS Recent Results (from the past 24 hour(s)) Extra Green Top (Bellflower Heparin) Tube Collection Time: 10/18/23 5:41 PM Result Value Ref Range Hold Specimen JIC Extra Purple Top Tube Collection Time: 10/18/23 5:41 PM Result Value Ref Range Hold Specimen JIC Lipid Profile Collection Time: 10/18/23 5:41 PM Result Value Ref Range Cholesterol 183 <200 mg/dL Triglycerides 279 (H) <150 mg/dL Direct Measure HDL 37 (L) >=40 mg/dL LDL Cholesterol Calculated 90 <=100 mg/dL Non HDL Cholesterol 146 (H) <130 mg/dL Hemoglobin A1c Collection Time: 10/18/23 5:41 PM Result Value Ref Range Estimated Average Glucose 111 mg/dL Hemoglobin A1C 5.5 <5.7 % IMPRESSION This is a 38 year old male with a PMH of schizoaffective disorder, bipolar type, MDD, PTSD, and polysubstance abuse (THC, meth, possibly others) who presents with psychosis occurring in the setting of general stressors. The patient has a history of hospitalization in 2007. He has a previous diagnosis of a schizophrenia spectrum disorder but validity questioned while in custodial. He has not been engaged in treatment recently. He is signs of dissociation and quite graphic visual hallucinations likefaces in toast with him making contradictory statements at times with some concern there may be an element of malingering. He does report being depressed with him struggling currently. He would benefit from hospitalization for further evaluation and treatment. ?? In terms of treatment, will further evaluate to determine most appropriate coarse. The patient doesa pronounced family history of neurological conditions with his father dying of suicide with MS in his 40s. He is at higher risk of this condition so will determine if additional testing is needed. In addition, the graphic natures of his hallucinations call into question whether the patient is withdrawing from Soma or abusing this agent. No other signs seen right now with the medication being held with careful monitoring. Today: Patient continues to report psychosis with Risperdal being further increased. High suspicionhe might have been misusing Soma with this not being continued as could have contributed, especially to dissociation. There could be some element of primary gain being in the hospital with some of the patient's reports being inconsistent. Will continue to treat regardless and further evaluate. DIAGNOSES #. Unspecified psychotic disorder #. Unspecified mood disorder #. Stimulant (meth) use disorder, in sustained remission PLAN Location: Unit 5 Legal Status: Orders Placed This Encounter Voluntary Safety Assessment: Behavioral Orders Procedures ??? Code 1 - Restrict to Unit ??? Routine Programming As clinically indicated ??? Status 15 Every 15 minutes. LINUX VMWARE ADMINISTRATOR psychotropic medications held: ?? -None, as not on any ?? LINUX VMWARE ADMINISTRATOR psychotropic medications continued/changed: ?? -None, as not on any ?? New psychotropic medications initiated: - Risperdal 1 mg at bedtime - Lexapro 10 mg daily - Standard unit prn agents, including Zyprexa prn agitation Today's Changes: - Increase Risperdal to 2 mg at bedtime Programming: Patient will be treated in a therapeutic milieu with appropriate individual and group therapies. Education will be provided on diagnoses, medications, and treatments. Medical diagnoses: Per medicine Consult: None Tests: A1c, Lipid, B12, Folic Acid, MARLINE, Lyme Anticipated LOS: 5-7 days Disposition: Home with outpatient services TREATMENT TEAM CARE PLAN Progress: Continued symptoms. Continued Stay Criteria/Rationale: Continued symptoms without sufficient improvement/resolution. Medical/Physical: See above. Precautions: See above. Plan: Continue inpatient care with unit support and medication management. Rationale for change in precautions or plan: NA due to no change. Participants: Jay Garcia DO, Nursing, SW, OT. The patient's care was discussed with the treatment team and chart notes were reviewed. ATTESTATION Dr. Jay Garcia Psychiatrist Video Visit: Patient has given verbal consent for video visit?: Yes Type of Service: video visit for mental health treatment Reason for Video Visit: [place] Originating Site (patient location): [facility] Distant Site (provider location): Remote Location Mode of Communication: Video Conference via [employer] Time of Service: Date: 10/19/2023 Start: 900 end: 930 * Jay Garcia DO - 10/18/2023 9:[address] [facility] PSYCHIATRY PROGRESS NOTE SUBJECTIVE Prior to interviewing the patient, I met with nursing and reviewed patient's clinical condition. Wediscussed clinical care both before and after the interview. I have reviewed the patient's clinicalcourse by review of records including previous notes, labs, and vital signs. Per nursing, the patient had the following behavioral events over the last 24- hours: none. Taking multiple prn agents. On psychiatric interview, the patient notes that he continues to hear voices. He notes that they are problematic. He notes that they are annoying. He notes that he would like to use medication to help treat these symptoms and depression. The patient consents to taking Risperdal, after discussing the benefits/risks/side effects/alternatives, including sedation, appetite changes, weight gain, metabolic syndrome, akathisia, dystonia, and movement disorders such as tardive dyskinesia. He consents to starting Lexapro after discussing B/R/SE, including sleep changes, GI side effects, headache, and sexual side effects. The patient denies chest pain or SOB. MEDICATIONS Scheduled Meds: Current Facility-Administered Medications Medication Dose Route Frequency Provider Last Rate Last Admin PRN Meds:. Current Facility-Administered Medications Medication Dose Route Frequency Provider Last Rate Last Admin ??? acetaminophen (TYLENOL) tablet 650 mg 650 mg Oral Q4H PRN Jose R Manzanares, ESA WALLPAPER PRINTER ? ? alum & mag hydroxide-simethicone (MAALOX) suspension 30 mL 30 mL Oral Q4H PRN Jose R Manzanares, ESA WALLPAPER PRINTER ??? haloperidol (HALDOL) tablet 5 mg 5 mg Oral Q8H PRN Jay Garcia, DO And ??? LORazepam (ATIVAN) tablet 2 mg 2 mg Oral Q8H PRN Jay Garcia, DO And ??? diphenhydrAMINE (BENADRYL) capsule 50 mg 50 mg Oral Q8H PRN Jay Garcia, DO ??? haloperidol lactate (HALDOL) injection 5 mg 5 mg Intramuscular Q8H PRN Jay Garcia, DO And ??? LORazepam (ATIVAN) injection 2 mg 2 mg Intramuscular Q8H PRN Jay Garcia, DO And ??? diphenhydrAMINE (BENADRYL) injection 50 mg 50 mg Intramuscular Q8H PRN Jay Garcia, DO ??? hydrOXYzine HCl (ATARAX) tablet 25 mg 25 mg Oral Q4H PRN Jose R Manzanares APRN WALLPAPER PRINTER 25 mg at 10/18/23 0819 ??? melatonin tablet 3 mg 3 mg Oral At Bedtime PRN Jose R Manzanares APRN WALLPAPER PRINTER 3 mg at 10/17/232004 ??? nicotine (NICORETTE) gum 2 mg 2 mg Buccal Q1H PRN Jose R Manzanares APRN WALLPAPER PRINTER 2 mg at 10/17/237 ??? OLANZapine (zyPREXA) tablet 10 mg 10 mg Oral TID PRN Jay Garcia, DO 10 mg at 10/18/23 0818 Or ??? OLANZapine (zyPREXA) injection 10 mg 10 mg Intramuscular TID PRN Jay Garcia, DO ALLERGIES Allergies Allergen Reactions ??? Ancef [Cefazolin] MENTAL STATUS EXAM Vitals: BP 104/62 Pulse 52 Temp 98.3 ??F (36.8 ??C) (Temporal) Resp 16 Ht 1.702 m (5' 7) Wt 84.1 kg (185 lb 8 oz) SpO2 96% BMI 29.05 kg/m?? Appearance: Alert, oriented, dressed in hospital scrubs Attitude: Cooperative to an extent Eye Contact: Poor Mood: Down, irritable Affect: Restricted range of affect, mood congruent Speech: Normal range. Normal rhythm Psychomotor Behavior: No tremor, rigidity, akathisia, or psychomotor retardation Thought Process: Logical, goal directed Associations: No loose associations Thought Content: Denies SI or thoughts of SIB currently. Reports AVH. Denies CAH. Elements of dissociation. Insight: Poor Judgment: Poor Oriented to: Person, place, and time Attention Span and Concentration: Limited Recent and Remote Memory: Limited Language: Turkish with appropriate syntax and vocabulary Fund of Knowledge: Average Muscle Strength and Tone: Grossly normal Gait and Station: Grossly normal LABS No results found for this or any previous visit (from the past 24 hour(s)). IMPRESSION This is a 38 year old male with a PMH of schizoaffective disorder, bipolar type, MDD, PTSD, and polysubstance abuse (THC, meth, possibly others) who presents with psychosis occurring in the setting of general stressors. The patient has a history of hospitalization in 2007. He has a previous diagnosis of a schizophrenia spectrum disorder but validity questioned while in custodial. He has not been engaged in treatment recently. He is signs of dissociation and quite graphic visual hallucinations likefaces in toast with him making contradictory statements at times with some concern there may be an element of malingering. He does report being depressed with him struggling currently. He would benefit from hospitalization for further evaluation and treatment. ?? In terms of treatment, will further evaluate to determine most appropriate coarse. The patient doesa pronounced family history of neurological conditions with his father dying of suicide with MS in his 40s. He is at higher risk of this condition so will determine if additional testing is needed. In addition, the graphic natures of his hallucinations call into question whether the patient is withdrawing from Soma or abusing this agent. No other signs seen right now with the medication being held with careful monitoring. DIAGNOSES #. Unspecified psychotic disorder #. Unspecified mood disorder #. Stimulant (meth) use disorder, in sustained remission PLAN Location: Unit 5 Legal Status: Orders Placed This Encounter Voluntary Safety Assessment: Behavioral Orders Procedures ??? Code 1 - Restrict to Unit ??? Routine Programming As clinically indicated ??? Status 15 Every 15 minutes. LINUX VMWARE ADMINISTRATOR psychotropic medications held: ?? -None, as not on any ?? LINUX VMWARE ADMINISTRATOR psychotropic medications continued/changed: ?? -None, as not on any ?? New psychotropic medications initiated: ?? -Standard unit prn agents, including Zyprexa prn agitation Today's Changes: - Start Risperdal 1 mg at bedtime - Start Lexapro 10 mg daily - Multiple labs below for neuropathy, psychosis, and starting neuroleptic Programming: Patient will be treated in a therapeutic milieu with appropriate individual and group therapies. Education will be provided on diagnoses, medications, and treatments. Medical diagnoses: Per medicine Consult: None Tests: A1c, Lipid, B12, Folic Acid, MARLINE, Lyme Anticipated LOS: 5-7 days Disposition: Home with outpatient services TREATMENT TEAM CARE PLAN Progress: Continued symptoms. Continued Stay Criteria/Rationale: Continued symptoms without sufficient improvement/resolution. Medical/Physical: See above. Precautions: See above. Plan: Continue inpatient care with unit support and medication management. Rationale for change in precautions or plan: NA due to no change. Participants: Jay Garcia, DO, Nursing, SW, OT. The patient's care was discussed with the treatment team and chart notes were reviewed. ATTESTATION Dr. Jay Garcia Psychiatrist Video Visit: Patient has given verbal consent for video visit?: Yes Type of Service: video visit for mental health treatment Reason for Video Visit: [place] Originating Site (patient location): [facility] Distant Site (provider location): Remote Location Mode of Communication: Video Conference via [employer] Time of Service: Date: 10/18/2023 Start: 800 end: 830 * Leana King - 10/16/2023 7:05 PM CDT 10/16/23 388 Patient Belongings Did you bring any home meds/supplements to the hospital? Yes Disposition of meds Sent to security/pharmacy per site process (gave to nurse) Patient Belongings locker;sent to security per site process Patient Belongings Put in Hospital Secure Location (Security or Locker, etc.) clothing;shoes;wallet;mu-ism item;bracelet;other (see comments) Belongings Search Yes Clothing Search Yes Second Staff Bambi Comment black high top shoes, jeans, button up shirt, hooded shirt, 4 t-shirts, 2 shorts, orange scrub top and pants, sweatpants, 7 pairs of socks, target bag, flushable wipes, white vape device, head men's tennis coach cable and block, henderson backpack, old spice spray, toothbrush and toothpaste in clear pouch, black and brown marker, receipts, empty gum pack, two magnets, new testament, small purple and henderson flashlight, black flashlight, powerbank box with yellow pump machine operator in it, powerbank, wireless earbuds with charging cord, black sunglasses, miscellaneous papers, envelope, and red bracelet inside a yellow manilla envelope, comic book inside a silver envelope, inside a manilla envelop, small black wallet wit cardboard and receipts. List items sent to safe: black motorola smart phone with no case, silver color ring with snake shape, and silver color bracelet with feather shape. All other belongings put in assigned cubby in belongings room. Contraband sent down to security I have reviewed my belongings list on admission and verify that it is correct. Patient signature Second staff witness (if patient unable to sign) I have received all my belongings at discharge. Patient signature Leana 10/16/2023 7:05 PM documented in this encounter H&P Notes * Jay Garcia DO - 10/17/2023 8:[address] [facility] PSYCHIATRY HISTORY AND PHYSICAL ADMISSION DATA Landon Lerma Age: [age] year old Date of : 1985 Date of Admission: 10/16/2023 Primary Physician: Nil[facility] CHIEF COMPLAINT Psychosis. HISTORY OF PRESENT ILLNESS Per ED: Landon Lerma is a 38 year old male who presents for mental health evaluation. He reports that he was in the hospital in 2007 for overdose of muscle relaxants. He states that he is currently convinced he is still in 2007, and feels similar now to how he felt then with increased thoughts of selfharm, paranoia and delusions of seeing demons. Patient also notes that these past few days were not good for his mental health. He wasn't able to get a job and afterward wanted to hurt himself. He hurt his left hand by burning himself with a devils trap. He endorses hallucinations of demons. Hedoes not want to hurt others. He does not smoke, use marijuana, or any other street drugs. He denies any recent alcohol use. He denies having taken any medications currently with the intent to overdose. He takes soma for back spasms but otherwise does not take any other regular medications for mental health. Per DEC: Landon Lerma presents to the ED by self. Patient is presenting to the ED for the following concerns: Worsening psychosocial stress. Factors that make the mental health crisis life threatening orcomplex are: Pt presents for worsening psychological distress. Pt reports that he has been experiencing worsenging visual and auditory hallucinations over the past 6 months. Pt reports that he sees faces and hears dozens of people talking at once in his head, it started out with my seeing faces onobjects, and it's just gotten worse. Pt appears to be responding to internal stimuli during interveiw, I see human animal hybrids. Like people with beaks or tusks. Pt reports these voices tell himto harm himself, never other people. Pt reports he was not abusing substances when these started.Pt reports he is now suicidal, but does not have a current plan to kill himself, not yet. Pt reports he has access to weapons in his community, but denies direct access to them at home. Pt reports no supports in his life, I bottle things up. Pt reportshe has no family and friends. Pt reports hehas not told anyone about these issues, I don't trust anybody. Pt reports he struggles with sleepand does not recall when he last slept through the night. Pt reports an inconsistent appetite. Pt believes it is 2007. Per Patient: The patient notes that he is being convinced he lived the live he didn't live. The patient notes feeling like a fugitive soul. He notes that he has been having auditory and visual hallucinations. He notes feeling like he has been dissociating. He notes that this has been progressing and intensifying since June. He notes that it started out with seeing faces in toasts and hackett. He used to use substances- meth and THC when younger. He denies any use in the last few years. The patient notes that he has felt empty inside much of his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 well as Risperidone and Hydroxyzine. Pt took medications and immediately asked for PRN Zyprexa. Informed him he would not be getting that and heargued Fine I'll be back in 10 minutes. Pt again was told no and he attempted to argue different times to come back for the Zyprexa. Again, informed pt he would not be getting the medication this morning. He was accepting of this and did go to the lounge. Social with peers. Pt scab on left hand is closed today. No s/s of infection. Encouraged pt to continue using proper hand hygiene and to not pick at the scab. Behaviors remained appropriate for the shift. Continues to seek out multiple PRNs.Encouraged to use coping skills. Pt declined stating I will use my coping skills when I am outsideof here like disc golfing, four wheeling, doing outside stuff. When I am here I am going to take all the drugs I can get. He napped some this afternoon. He is able to make his needs known. Steady gait- no falls. Frequent rounding. Problem: Adult Behavioral Health Plan of Care Goal: Patient-Specific Goal (Individualization) Description: Patient will sleep 6-8 hours per night. Patient will attend 50% or more of groups. Patient will eat 50% or more of meals. Patient will remain medication compliant. Patient will follow the recommendations of treatment team. Outcome: Progressing Problem: Suicide Risk Goal: Absence of Self-Harm Description: Patient will be free of self-harm and thoughts of self-harm by discharge. Outcome: Progressing Problem: Thought Process Alteration Goal: Optimal Thought Clarity Description: Patient will be able to have a linear, reality based conversation by discharge. Outcome: Progressing Juana Luis RN 10/28/2023 8:45 AM * Plan of Care - Juanpablo Chavez RN - 10/28/2023 2:10 AM CDT Problem: Adult Behavioral Health Plan of Care Goal: Patient-Specific Goal (Individualization) Description: Patient will sleep 6-8 hours per night. Patient will attend 50% or more of groups. Patient will eat 50% or more of meals. Patient will remain medication compliant. Patient will follow the recommendations of treatment team. Outcome: Progressing Goal Outcome Evaluation: Face to face shift report received from RN. Rounding completed, pt observed.Client rested in room for 7 hours with eyes closed and respirations noted.Face to face report will be communicated to oncoming RN. Juanpablo Chavez RN 10/28/2023 6:25 AM * Plan of Care - Juana Luis RN - 10/27/2023 11:50 AM CDT Face to face end of shift report received from Milagros Jimenez RN. Rounding completed. Patient observed inlounge. Pt has been calm, cooperative this shift. He reports high anxiety today and requests PRNs throughout the morning. Pt has a bright affect and is pleasant with staff/peers. He has participated in the unit's milieu with appropriate behaviors. He has attended groups throughout the day. After Propanolol administration pt came to the nurse's station stating I don't know what it is, but I feel so calm.Whatever you just gave me is working. Well, maybe its that or it might be the combination of all ofthem. Pt continues to report that she feels much calmer and did not require any PRNs until eveningshift. Continued care of pt through evening shift. Pt behaviors continue to remain appropriate. He does request several PRNs throughout the evening aswell. Pt did report that he feels that the Propanolol does work very well, but not all the way. Pt did not attend any groups this shift. He is social with peers/staff. He denied any SI/HI and AH/VH. Denied pain. Pt left hand scab is now open and bleeding. Encouraged pt to wash with soap and water. Triple antibiotic ointment and large bandaid applied as it continues to bleed and pt will not leave it alone. There doesn't appear to be any s/s of infection at this time. Encouraged pt to stop picking at the scab and let it heal. Problem: Adult Behavioral Health Plan of Care Goal: Patient-Specific Goal (Individualization) Description: Patient will sleep 6-8 hours per night. Patient will attend 50% or more of groups. Patient will eat 50% or more of meals. Patient will remain medication compliant. Patient will follow the recommendations of treatment team. Outcome: Progressing Problem: Suicide Risk Goal: Absence of Self-Harm Description: Patient will be free of self-harm and thoughts of self-harm by discharge. Outcome: Progressing Problem: Thought Process Alteration Goal: Optimal Thought Clarity Description: Patient will be able to have a linear, reality based conversation by discharge. Outcome: Progressing Juana Luis RN 10/27/2023 11:23 AM * Plan of Care - Milagros Vieyra RN - 10/27/2023 2:20 AM CDT Face to face end of shift report will be communicated to oncoming RN. Problem: Adult Behavioral Health Plan of Care Goal: Patient-Specific Goal (Individualization) Description: Patient will sleep 6-8 hours per night. Patient will attend 50% or more of groups. Patient will eat 50% or more of meals. Patient will remain medication compliant. Patient will follow the recommendations of treatment team. Outcome: Progressing Problem: Suicide Risk Goal: Absence of Self-Harm Description: Patient will be free of self-harm and thoughts of self-harm by discharge. Outcome: Progressing Problem: Thought Process Alteration Goal: Optimal Thought Clarity Description: Patient will be able to have a linear, reality based conversation by discharge. Outcome: Progressing Face to face end of shift report obtained from MORGAN Azul. Pt observed resting in bed. Pt appears to be sleeping in bed with eyes closed. 15 minutes and PRN safety checks completed with no noted complains. No self harm or delusional comments noted or reported so far this shift. 0600-Pt appeared to had slept all night. Around 0630 pt requested his morning meds. Staff told patient is too early. 5 minutes later he asked for Zyprexa because his dream caused him to get agitated. Staff mentioned different copying skills. Pt stated he has no copying skills and that is why he is here. Minutes later, pt sates his agitation is feeling worse and his anxiety is increasing. Atarax 50 mg and Risperdal 1 mg given. 07-Pt in lobby watching TV with peers. * Plan of Care - Latha Otto RN - 10/26/2023 4:02 PM CDT Face to face end of shift report received from Bhumi Hernández RN. Rounding completed and patient observed lying in bed with eyes closed, breathing regular and unlabored. Goal Outcome Evaluation: Patient was sleeping at the start of shift and slept until 7pm. He woke upand asked for his dinner. He reported he felt wonderful and had slept well. Patient requested his HS meds at 19:50. He requested to have zyprexa with his HS meds. This sports writer informed him he would not be getting 2 neuroleptics at the same time. He then asked for 50mg Atarax and melatonin. He requested to know how long he had to wait to get the zyprexa. He reported high anxiety and his affect had changed since waking up. He seemed tense and had a look on his face that he was stressed. He did received 10mg Zyprexa at 20:37. Patient is clean and neatly dressed. Face to face end of shift report communicated to choco MORA. Plan of Care Reviewed With: patient Problem: Adult Behavioral Health Plan of Care Goal: Patient-Specific Goal (Individualization) Description: Patient will sleep 6-8 hours per night. Patient will attend 50% or more of groups. Patient will eat 50% or more of meals. Patient will remain medication compliant. Patient will follow the recommendations of treatment team. Outcome: Not Progressing Problem: Thought Process Alteration Goal: Optimal Thought Clarity Description: Patient will be able to have a linear, reality based conversation by discharge. Outcome: Not Progressing Problem: Suicide Risk Goal: Absence of Self-Harm Description: Patient will be free of self-harm and thoughts of self-harm by discharge. Outcome: Progressing * Plan of Care - Bhumi Heredia RN - 10/26/2023 9:04 AM CDT Problem: Adult Behavioral Health Plan of Care Goal: Patient-Specific Goal (Individualization) Description: Patient will sleep 6-8 hours per night. Patient will attend 50% or more of groups. Patient will eat 50% or more of meals. Patient will remain medication compliant. Patient will follow the recommendations of treatment team. Outcome: Progressing Note: Face to face start of shift report received from RN. Rounding complete, patient in room at this time. Bhumi Heredia RN 10/26/2023 8:00 AM Patient up on unit for breakfast, patient eats 100%. Patient takes all medications as prescribed. PRN: Atarax 50 mg @ 0819 for agitation. I woke up again feeling scared PRN: Risperdal 1 mg @ 0925 for continued agitation. Nothing seems to be working PRN: Clonidine 0.1 mg @ 1036 I just need something nothing seems to be helping, I feel so restless Patient spends time in lounge, social with peers. PRN: Zyprexa 10 mg @ 1138 agitation PRN: hydroxyzine 50 mg @ 1317 anxiety Patient utilizes all PRN medications, requests times available for next PRN medications. Patient does not attend groups. Patient went down to smudge with security and staff. Goal Outcome Evaluation: Face to face end of shift report communicated to oncoming shift. Bhumi Heredia RN 10/26/2023 3:10 PM * Plan of Care - Milagros Vieyra RN - 10/26/2023 12:24 AM CDT Face to face end of shift report will be communicated to oncoming RN. Problem: Adult Behavioral Health Plan of Care Goal: Patient-Specific Goal (Individualization) Description: Patient will sleep 6-8 hours per night. Patient will attend 50% or more of groups. Patient will eat 50% or more of meals. Patient will remain medication compliant. Patient will follow the recommendations of treatment team. Outcome: Progressing Problem: Suicide Risk Goal: Absence of Self-Harm Description: Patient will be free of self-harm and thoughts of self-harm by discharge. Outcome: Progressing Problem: Thought Process Alteration Goal: Optimal Thought Clarity Description: Patient will be able to have a linear, reality based conversation by discharge. Outcome: Progressing Face to face end of shift report obtained from MORGAN Azul. Pt observed resting in bed. Pt appears to be sleeping in bed with eyes closed. 15 minutes and PRN safety checks completed with no noted complains. No self harm or delusional comments noted or reported so far this shift. 0543-Pt c/o waking up from a nightmare that he was getting hit in the back of his head. Pt appears tense and reports feeling agitated. Zyprexa 10 mg PO given per request. Pt appeared to had slept 6.5hours this shift. * Plan of Care - Latha Otto RN - 10/25/2023 4:00 PM CDT Face to face end of shift report received from Chrissy Jyoner RN. Rounding completed and patient observed in the lounge. Requested meds. See additional note below. Goal Outcome Evaluation: Patient had requested many meds and wanted to review his meds so he could know what his options were. Patient was educated this sports writer did not feel comfortable giving multiple neuroleptic medications at one time. Patient reported he was having an emergency like situation and was given 10mg zyprexa and 50mg atarax at 15:55. He did not fall asleep after this and did not report relief. He did not appear to be having an emergency but did seem uncomfortable. He was polite and he was redirectable. He asked if he could have his HS meds early. He was given 0.1 Clonidine at 18:35 and was not given his HS meds early. Patient denied pain. He is clean and neatly dressed. He attended some groups and participates in unit milieu. At HS med pass patient requested to have thorazine but he was denied. He went to bed after this and did not wake up for more meds. Face to face end of shift report communicated to oncoming RN. Problem: Adult Behavioral Health Plan of Care Goal: Patient-Specific Goal (Individualization) Description: Patient will sleep 6-8 hours per night. Patient will attend 50% or more of groups. Patient will eat 50% or more of meals. Patient will remain medication compliant. Patient will follow the recommendations of treatment team. Outcome: Not Progressing Problem: Thought Process Alteration Goal: Optimal Thought Clarity Description: Patient will be able to have a linear, reality based conversation by discharge. Outcome: Not Progressing Problem: Suicide Risk Goal: Absence of Self-Harm Description: Patient will be free of self-harm and thoughts of self-harm by discharge. Outcome: Progressing * Plan of Care - Chrissy Riley RN - 10/25/2023 7:48 AM CDT Problem: Adult Behavioral Health Plan of Care Goal: Patient-Specific Goal (Individualization) Description: Patient will sleep 6-8 hours per night. Patient will attend 50% or more of groups. Patient will eat 50% or more of meals. Patient will remain medication compliant. Patient will follow the recommendations of treatment team. Outcome: Progressing Problem: Suicide Risk Goal: Absence of Self-Harm Description: Patient will be free of self-harm and thoughts of self-harm by discharge. Outcome: Progressing Problem: Thought Process Alteration Goal: Optimal Thought Clarity Description: Patient will be able to have a linear, reality based conversation by discharge. Outcome: Progressing Goal Outcome Evaluation: Pt in his room at the start of the shift. Pt ate his breakfast in his room. Pt took his morning medications. Pt reported high anxiety and asked for clonidine 0.1mg and hydroxyzine 50mg at 0948. 1102-pt requested and was given zyprexa 10mg for agitation. 1229-pt requested thorazine 25mg. Pt reminded that his provider discussed that thorazine can be used for emergencies. Pt stated that this is an emergency and that he was increasingly agitated. Plan of Care Reviewed With: patient Face to face end of shift report communicated to evening shift RN. Reported that pt is a risk for suicide. Chrissy Riley RN 10/25/2023 7:48 AM * Plan of Care - Milagros Vieyra RN - 10/25/2023 3:58 AM CDT Face to face end of shift report will be communicated to oncoming RN. Problem: Adult Behavioral Health Plan of Care Goal: Patient-Specific Goal (Individualization) Description: Patient will sleep 6-8 hours per night. Patient will attend 50% or more of groups. Patient will eat 50% or more of meals. Patient will remain medication compliant. Patient will follow the recommendations of treatment team. Outcome: Progressing Problem: Suicide Risk Goal: Absence of Self-Harm Description: Patient will be free of self-harm and thoughts of self-harm by discharge. Outcome: Progressing Problem: Thought Process Alteration Goal: Optimal Thought Clarity Description: Patient will be able to have a linear, reality based conversation by discharge. Outcome: Progressing Face to face end of shift report obtained from MORGAN Arias. Pt observed resting in bed. Pt appears to be sleeping in bed with eyes closed. 15 minutes and PRN safety checks completed with no noted complains. No self harm or delusional comments noted or reported so far this shift. 0600-Pt appeared to had slept all night. * Plan of Care - Juana Luis RN - 10/24/2023 4:47 PM CDT Face to face end of shift report received from Estefany Joyner RN. Rounding completed. Patient observed in lounge. Pt immediately to the nurse's station once this sports writer was out of report. When you have a minute.This sports writer requested to have a few minutes to get organized. Pt requesting PRNs stating You don'tunderstand what is going on in my head. It's a back and forth pelaez in my head. Especially being here. Nobody gets it. I just need something to knock these thoughts out.. Pt does not seem agitated, anxious, or appear to be responding to any internal stimuli. Pt is social with peers and staff witha bright affect. Pt reports poor results from all PRNs administered. Pt went to groups throughout the evening. He is able to make his needs known. Steady gait- no falls. Frequent rounding. Problem: Adult Behavioral Health Plan of Care Goal: Patient-Specific Goal (Individualization) Description: Patient will sleep 6-8 hours per night. Patient will attend 50% or more of groups. Patient will eat 50% or more of meals. Patient will remain medication compliant. Patient will follow the recommendations of treatment team. Outcome: Progressing Problem: Suicide Risk Goal: Absence of Self-Harm Description: Patient will be free of self-harm and thoughts of self-harm by discharge. Outcome: Progressing Problem: Thought Process Alteration Goal: Optimal Thought Clarity Description: Patient will be able to have a linear, reality based conversation by discharge. Outcome: Progressing Juana Luis RN 10/24/2023 4:16 PM * Plan of Care - Bhumi Heredia RN - 10/24/2023 8:44 AM CDT PRN: Zyprexa 10 mg @ 0843 For agitation. 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 Patient will attend 50% or more of groups. Patient will eat 50% or more of meals. Patient will remain medication compliant. Patient will follow the recommendations of treatment team. Outcome: Progressing Problem: Suicide Risk Goal: Absence of Self-Harm Description: Patient will be free of self-harm and thoughts of self-harm by discharge. Outcome: Progressing Problem: Thought Process Alteration Goal: Optimal Thought Clarity Description: Patient will be able to have a linear, reality based conversation by discharge. Outcome: Progressing Goal Outcome Evaluation: Pt in bed at the start of the shift. Pt ate breakfast in the lounge, walked in the halls and spent the rest of the morning in the lounge. Pt declined groups this morning. Pt complained of bad hallucinations and delusions and requested zyprexa 10mg at 0843, thorazine 25mg at 1000, hydroxyzine 50mg at 1157, zyprexa 10mg at 1302 and clonidine 0.1mg at 1401. Plan of Care Reviewed With: patient Face to face end of shift report communicated to evening shift RN. Reported that pt is a risk for suicide. Chrissy Riley RN 10/24/2023 7:37 AM * Plan of Care - Milagros Vieyra RN - 10/24/2023 12:20 AM CDT Face to face end of shift report will be communicated to oncoming RN. Problem: Adult Behavioral Health Plan of Care Goal: Patient-Specific Goal (Individualization) Description: Patient will sleep 6-8 hours per night. Patient will attend 50% or more of groups. Patient will eat 50% or more of meals. Patient will remain medication compliant. Patient will follow the recommendations of treatment team. Outcome: Progressing Problem: Suicide Risk Goal: Absence of Self-Harm Description: Patient will be free of self-harm and thoughts of self-harm by discharge. Outcome: Progressing Problem: Thought Process Alteration Goal: Optimal Thought Clarity Description: Patient will be able to have a linear, reality based conversation by discharge. Outcome: Progressing Face to face end of shift report obtained from MORGAN Arias. Pt observed resting in bed. Pt appears to be sleeping in bed with eyes closed. 15 minutes and PRN safety checks completed with no noted complains. No self harm or delusional comments noted or reported so far this shift. 0600-Pt appeared to had slept all night. * Plan of Care - Juana Luis RN - 10/23/2023 4:11 PM CDT Face to face end of shift report received from Estefany Joyner RN. Rounding completed. Patient observed in [facility]. Upon introduction, pt instantly requesting PRN medications stating that his anxiety was very high and was starting to feel agitated. Educated pt on Thorazine and pt requested to have it. AdministeredThorazine at 1542. While taking medications pt requesting Tahmina to go with Thorazine. Informed him he did not have that ordered, but Clonidine was. Educated pt on this medication as well and he requested to have it as well. Pt allowed VS and medication was administered. Pt did not appear agitated and was calm speaking to this sports writer. He was very bright and made jokes. He did not appear preoccupied and did not make any awkward hand gestures like he did yesterday. Pt would not directly answer assessment questions and frequently stated there's a lot going on up there. Pt did attend groups afterwards without any behaviors. Pt stated shortly afterwards What's my break through I'm going to break the glass PRN. Informed him that he needs to allow the other medications to work prior to administering more. Pt continued to ask for PRNs and HS medications early throughout the evening. Upsetwith this sports writer stating You don't know what's going on in my head. Just give me my meds. This sports writer firmly stated that they are scheduled for a reason and he wouldn't be receiving them beforehand. Pt was accepting of this. Behaviors remained appropriate. He was social with peers/staff. Able to m wayne his needs known. Steady gait- no falls. Frequent rounding. Problem: Adult Behavioral Health Plan of Care Goal: Patient-Specific Goal (Individualization) Description: Patient will sleep 6-8 hours per night. Patient will attend 50% or more of groups. Patient will eat 50% or more of meals. Patient will remain medication compliant. Patient will follow the recommendations of treatment team. Outcome: Progressing Problem: Suicide Risk Goal: Absence of Self-Harm Description: Patient will be free of self-harm and thoughts of self-harm by discharge. Outcome: Progressing Problem: Thought Process Alteration Goal: Optimal Thought Clarity Description: Patient will be able to have a linear, reality based conversation by discharge. Outcome: Progressing Juana Luis RN 10/23/2023 4:03 PM * Plan of Care - Chrissy Riley RN - 10/23/2023 10:35 AM CDT Problem: Adult Behavioral Health Plan of Care Goal: Patient-Specific Goal (Individualization) Description: Patient will sleep 6-8 hours per night. Patient will attend 50% or more of groups. Patient will eat 50% or more of meals. Patient will remain medication compliant. Patient will follow the recommendations of treatment team. Outcome: Progressing Problem: Suicide Risk Goal: Absence of Self-Harm Description: Patient will be free of self-harm and thoughts of self-harm by discharge. Outcome: Progressing Problem: Suicide Risk Goal: Absence of Self-Harm Description: Patient will be free of self-harm and thoughts of self-harm by discharge. Intervention: Promote Psychosocial Wellbeing Recent Flowsheet Documentation Taken 10/23/2023 1024 by Chrissy Riley, RN Supportive Measures: active listening utilized self-care encouraged Family/Support System Care: self-care encouraged Problem: Thought Process Alteration Goal: Optimal Thought Clarity Description: Patient will be able to have a linear, reality based conversation by discharge. Outcome: Progressing Goal Outcome Evaluation: Pt in bed at the start of the shift. Pt ate his breakfast in the lounge but has been in his room for the first few hours of the shift. Pt requested something for anxiety after breakfast. Pt given hydroxyzine 25mg at 0919. Pt started asking for the B52 at 1000. Pt told that he just had a prn for anxiety and he hasn't given it enough time to work. Pt states that he is hearing voices and assures staff that he is very agitated although pt does not appear agitated. Discussed using coping skills for his anxiety, pt given zyprexa 10mg for agitation and voices. Pt agreed to attend a group this shift and journal a gratitude list. Pt attended group in the morning for a short time. Pt up in the lounge after group. Pt requested the B52 throughout the shift stating he is agitated but not showing any signs of agitation. Pt given hydroxyzine 50mg at 1328. Plan of Care Reviewed With: patient * Plan of Care - Mickey Muir RN - 10/23/2023 6:03 AM CDT Problem: Adult Behavioral Health Plan of Care Goal: Patient-Specific Goal (Individualization) Description: Patient will sleep 6-8 hours per night. Patient will attend 50% or more of groups. Patient will eat 50% or more of meals. Patient will remain medication compliant. Patient will follow the recommendations of treatment team. Outcome: Progressing Goal Outcome Evaluation: Face to face end of shift report received from RN. Patient rounding completed. October 22, 2023 11:47 PM At nurse's station requesting a snack and prn oral B52. Provided banana and medications, pt returned back to his room. October 23, 2023 3:15 AM Patient requesting prn hydroxyzine, this sports writer suggested to wait for previous prn to take effect before trying more medication, but patient wants to take hydroxyzine now, pt returned back to room after taking medication. October 23, 2023 3:35 AM Patient resting in bed for approximately 5.5 hours, respirations noted. October 23, 2023 6:04 AM * Plan of Care - Juana Luis RN - 10/22/2023 6:27 PM CDT Face to face end of shift report received from Estefany V. RN. Rounding completed. Patient observed in [facility]. Pt has been calm, cooperative this shift. He frequently seeks out staff requesting medications. Pt utilized all of his PRNs this shift and reported that they were not effective. Pt reports that he'sgot things going on upstairs that need to go away. Pt denied any SI/HI/VH. He has gone to groups throughout the shift. Behaviors have been appropriate. He is social with peers/staff. Pt requested tohave HS medications sooner. Agreed to wait until 1900. He is able to make his needs known. Steady gait- no falls. Frequent rounding. Problem: Adult Behavioral Health Plan of Care Goal: Patient-Specific Goal (Individualization) Description: Patient will sleep 6-8 hours per night. Patient will attend 50% or more of groups. Patient will eat 50% or more of meals. Patient will remain medication compliant. Patient will follow the recommendations of treatment team. Outcome: Progressing Problem: Suicide Risk Goal: Absence of Self-Harm Description: Patient will be free of self-harm and thoughts of self-harm by discharge. Outcome: Progressing Problem: Thought Process Alteration Goal: Optimal Thought Clarity Description: Patient will be able to have a linear, reality based conversation by discharge. Outcome: Progressing Juana Luis RN 10/22/2023 6:12 PM * Plan of Care - Chrissy Riley RN - 10/22/2023 7:55 AM CDT Problem: Adult Behavioral Health Plan of Care Goal: Patient-Specific Goal (Individualization) Description: Patient will sleep 6-8 hours per night. Patient will attend 50% or more of groups. Patient will eat 50% or more of meals. Patient will remain medication compliant. Patient will follow the recommendations of treatment team. Outcome: Progressing Problem: Suicide Risk Goal: Absence of Self-Harm Description: Patient will be free of self-harm and thoughts of self-harm by discharge. Outcome: Progressing Problem: Thought Process Alteration Goal: Optimal Thought Clarity Description: Patient will be able to have a linear, reality based conversation by discharge. Outcome: Progressing Goal Outcome Evaluation: Pt came to the nurses station as soon as day shift got on the floor, pt stated I did not have a good night, I need all my prns. Nursing told pt that we need to get into our computers and will get him meds. Pt came to the nurses station before nursing could look up his medications and stated justgive me the gum then. Pt given zyprexa 10mg and nicotine gum at 0750. Pt stated if this doesn't work I'm going for the shots referring to the B52 he has been asking for. Pt states he just wants togo to sleep. Discussed that being over medicated and sleeping doesn't always help and it may be beneficial to learn some coping skills by going to groups. Pt stated he isn't going to get better and will probably not leave here. Pt came to nurses station at 0800 and asked for atarax. Pt reminded that he had just taken the zyprexa and it hadn't even had a chance to work. Discussed that we don't know if the zyprexa works for him if he uses it with all of the other medications all at one time. Pt came back to the nurses station at 0930 stating the zyprexa didn't work. Pt asked for the hydroxyzine 50mg at this time. Pt encouraged to talk to provider about his prns. Pt continued to tell nursing he needs the B52 shot lara it is getting to critical state. When asked what he means by critical state, pt stated I need some respite from the war in my head. Pt askedwhat other medications are available. SUPERVISOR CABINETMAKER called and will talk to pt regarding prn use. Plan of Care Reviewed With: patient Face to face end of shift report communicated to evening shift. Reported that pt is a risk for suicide. Chrissy Riley RN 10/22/2023 7:55 AM * Plan of Care - Margareth Mcarthur RN - 10/22/2023 1:03 AM CDT Face to face end of shift report received from Rhys Jimenez RN. Pt observed laying on right side in bed and appears to be sleeping. Problem: Adult Behavioral Health Plan of Care Goal: Patient-Specific Goal (Individualization) Description: Patient will sleep 6-8 hours per night. Patient will attend 50% or more of groups. Patient will eat 50% or more of meals. Patient will remain medication compliant. Patient will follow the recommendations of treatment team. Outcome: Progressing Problem: Suicide Risk Goal: Absence of Self-Harm Description: Patient will be free of self-harm and thoughts of self-harm by discharge. Outcome: Progressing Problem: Thought Process Alteration Goal: Optimal Thought Clarity Description: Patient will be able to have a linear, reality based conversation by discharge. Outcome: Progressing Goal Outcome Evaluation: Pt appeared to sleep 7 hours through the night with a normal breathing pattern and noted position changes. 15 min checks completed. Pt did c/o or exhibit any signs of SI/SIB. Pt makes needs known. Face to face end of shift report communicated to oncoming RN. . Margareth Mcarthur RN 10/22/2023 * Plan of Care - Rhys Christensen RN - 10/21/2023 7:39 PM CDT Problem: Suicide Risk Goal: Absence of Self-Harm Description: Patient will be free of self-harm and thoughts of self-harm by discharge. Intervention: Promote Psychosocial Wellbeing Recent Flowsheet Documentation Taken 10/21/2023 1600 by Rhys Christensen RN Supportive Measures: active listening utilized positive reinforcement provided self-care encouraged self-reflection promoted self-responsibility promoted verbalization of feelings encouraged Family/Support System Care: self-care encouraged Pt continues to have vague SI with no plan Problem: Thought Process Alteration Goal: Optimal Thought Clarity Description: Patient will be able to have a linear, reality based conversation by discharge. Outcome: Progressing PT continues to say that he is hearing voices Problem: Adult Behavioral Health Plan of Care Goal: Patient-Specific Goal (Individualization) Description: Patient will sleep 6-8 hours per night. Patient will attend 50% or more of groups. Patient will eat 50% or more of meals. Patient will remain medication compliant. Patient will follow the recommendations of treatment team. Outcome: Progressing Goal Outcome Evaluation: Plan of Care Reviewed With: patient 1530 Face to face rounding complete. Pt introduced to nursing for the shift. Pt was up and active at the beginning of the shift and for about an hour after supper. He complained of having intrusive voices and wanted more PRN's when he had maximum PRN's just before shift change. I had him wait until after supper to get his last dose of Zyprexa. PT then fell asleep within an hour of taking the Zyprexa. He told me that he is interested in getting a [facility] manger and possibly going to a [facility]. He told me that he still feels that his depression is terrible and he still has vague SI. Pt appeared more irritable this evening. Pt slept until about 5 when I woke him to give him his HS medications with his usual bedtime medication requests. A half hour after taking his HS medications he asked for Benadryl, Ativan, and Haldol. He was told that he did not appear agitated and his HS medications had not even started working yet. PT fell asleep soon after. 2300 Face to face end of shift report communicated to physical integration practitioner RN's along with Pt's fall risk. Rhys Christensen RN 10/21/2023 * Plan of Care - Chrissy Riley RN - 10/21/2023 1:48 PM CDT Problem: Adult Behavioral Health Plan of Care Goal: Patient-Specific Goal (Individualization) Description: Patient will sleep 6-8 hours per night. Patient will attend 50% or more of groups. Patient will eat 50% or more of meals. Patient will remain medication compliant. Patient will follow the recommendations of treatment team. Outcome: Progressing Problem: Suicide Risk Goal: Absence of Self-Harm Description: Patient will be free of self-harm and thoughts of self-harm by discharge. Outcome: Progressing Problem: Thought Process Alteration Goal: Optimal Thought Clarity Description: Patient will be able to have a linear, reality based conversation by discharge. Outcome: Progressing Goal Outcome Evaluation: Pt in bed at the start of the shift. Pt stayed in bed this morning with ear plugs in his ears. Pt had to be woken up to take his morning medications. Pt was woken up to eat lunch after several attempts to wake him. Pt came to the nurses station after lunch and asked for hydroxyzine and zyprexa. Pt states he would rather sleep through it and let the voices in his head argue it out. Pt pleasant andcooperative with staff and peers. Pt reports pain at 5/10 and given tylenol 650mg at 1330 along with hydroxyzine 50mg and zyprexa 10mg. Plan of Care Reviewed With: patient Face to face end of shift report communicated to evening shift RN. Chrissy Riley RN 10/21/2023 1:48 PM * Plan of Care - Slime Abbott RN - 10/21/2023 12:09 AM CDT Problem: Adult Behavioral Health Plan of Care Goal: Patient-Specific Goal (Individualization) Description: Patient will sleep 6-8 hours per night. Patient will attend 50% or more of groups. Patient will eat 50% or more of meals. Patient will remain medication compliant. Patient will follow the recommendations of treatment team. Outcome: Progressing Problem: Suicide Risk Goal: Absence of Self-Harm Description: Patient will be free of self-harm and thoughts of self-harm by discharge. Outcome: Progressing Problem: Thought Process Alteration Goal: Optimal Thought Clarity Description: Patient will be able to have a linear, reality based conversation by discharge. Outcome: Progressing Face to face shift report received from Rhys. Rounding completed, patient laying in bed, appeared to be sleeping, respirations noted. Patient appeared to be sleeping for approximately 7.5 hours since 2200 last shift. 0454 - Patient requested & received PRN hydroxyzine 50mg & Zyprexa 10mg PO. Patient had no reported or observed suicidal behavior or self harm this shift. Face to face report will be communicated to oncoming RN. Slime Abbott RN 10/21/2023 6:52 AM * Plan of Care - Rhys Christensen RN - 10/20/2023 7:56 PM CDT Problem: Suicide Risk Goal: Absence of Self-Harm Description: Patient will be free of self-harm and thoughts of self-harm by discharge. Intervention: Promote Psychosocial Wellbeing Recent Flowsheet Documentation Taken 10/20/2023 1700 by Rhys Christensen RN Supportive Measures: active listening utilized decision-making supported goal-setting facilitated guided imagery facilitated positive reinforcement provided verbalization of feelings encouraged self-responsibility promoted self-reflection promoted self-care encouraged Family/Support System Care: self-care encouraged Pt states that he still has SI with no plan Problem: Thought Process Alteration Goal: Optimal Thought Clarity Description: Patient will be able to have a linear, reality based conversation by discharge. 10/20/20231954 by Rhys Christensen RN Outcome: Progressing PT states that he is still hearing voices though does not appear preoccupied Problem: Adult Behavioral Health Plan of Care Goal: Patient-Specific Goal (Individualization) Description: Patient will sleep 6-8 hours per night. Patient will attend 50% or more of groups. Patient will eat 50% or more of meals. Patient will remain medication compliant. Patient will follow the recommendations of treatment team. 10/20/20231954 by Rhys Christensen RN Outcome: Progressing Goal Outcome Evaluation: Plan of Care Reviewed With: patient 1530 Face to face rounding complete. Pt introduced to nursing for the shift. Pt was up most of the shift in the dayroom in the rocker looking out of the window or watched TV. He told me that he feels like he has nothing to live for and has not had a period in his life where he has had regla since around 2011. He discussed past treatment options that he has tried for depression and his mental illness and said that he did have ECT long ago and had some benefits. I encourage him to talk to his provider about this. He asked for PRN's for severe agitation and hearing voices and received Haldol, Benadryl, and Ativan at 1637. PT said this helped some. He received Atarax with his HS mediations for his anxiety. Pt has a very flat affect though does appear irritable at times. 2300 Face to face end of shift report communicated to Paint Grinder RN's along with Pt's fall risk. Rhys Christensen RN 10/20/2023 * Plan of Care - Chrissy Riley RN - 10/20/2023 10:42 AM CDT Problem: Adult Behavioral Health Plan of Care Goal: Patient-Specific Goal (Individualization) Description: Patient will sleep 6-8 hours per night. Patient will attend 50% or more of groups. Patient will eat 50% or more of meals. Patient will remain medication compliant. Patient will follow the recommendations of treatment team. Outcome: Progressing Problem: Suicide Risk Goal: Absence of Self-Harm Description: Patient will be free of self-harm and thoughts of self-harm by discharge. Outcome: Progressing Problem: Thought Process Alteration Goal: Optimal Thought Clarity Description: Patient will be able to have a linear, reality based conversation by discharge. Outcome: Progressing Goal Outcome Evaluation: Pt in bed at the start of the shift. Pt took his medications when offered and answered all of the nursing questions. Pt denied pain, depression, SI, HI. Pt does report anxiety and hallucinations. Pt states he is having a hard time ignoring the voices telling him to do things. Pt slept most of the morning. Pt ate his lunch in his room, pt given zyprexa 10mg at 1150. * Plan of Care - Slime Abbott RN - 10/20/2023 12:14 AM CDT Problem: Adult Behavioral Health Plan of Care Goal: Patient-Specific Goal (Individualization) Description: Patient will sleep 6-8 hours per night. Patient will attend 50% or more of groups. Patient will eat 50% or more of meals. Patient will remain medication compliant. Patient will follow the recommendations of treatment team. Outcome: Progressing Problem: Suicide Risk Goal: Absence of Self-Harm Description: Patient will be free of self-harm and thoughts of self-harm by discharge. Outcome: Progressing Problem: Thought Process Alteration Goal: Optimal Thought Clarity Description: Patient will be able to have a linear, reality based conversation by discharge. Outcome: Progressing Face to face shift report received from Ivelisse. Rounding completed, patient laying in bed, appeared to be sleeping, respirations noted. Patient appeared to be sleeping for approximately 8.5 hours since 2099 last shift. Patient requested & received PRN; hydrOXYzine HCl (ATARAX) tablet 25 mg at 10/20/23 0519 for 10/10 anxiety. OLANZapine (zyPREXA) tablet 10 mg at 10/20/23 0519 for feeling agitated. 0635 - Patient came to nursing and asked to get haldol injection stating that he still feels anxious and agitated. Informed patient that it has only been about an hour since he received his other PRNs and asked him to wait a bit longer to see if they kick in. Patient stated ok and went back to his room. 0654 - Patient back to nurse desk stating that it's bad and the other meds didn't help and he needssomething else, explained that it'll be at least another 3 hours before he will be able to have anyother PRNs, patient stated he didn't care and he received PRN haloperidol (HALDOL) tablet 5 mg AND LORazepam (ATIVAN) tablet 2 mg AND diphenhydrAMINE (BENADRYL) capsule 50 mg. Patient then stated that when he takes mental health meds (in reference to the haldol) that he will sleep for at least 3 hours. He then requested his blinds to be closed. Patient had no reported or observed suicidal behavior or self harm this shift. Face to face report will be communicated to oncoming RN. Slime Abbott RN 10/20/2023 7:00 AM * Plan of Care - Ivelisse Masters RN - 10/19/2023 8:33 PM CDT Problem: Adult Behavioral Health Plan of Care Goal: Patient-Specific Goal (Individualization) Description: Patient will sleep 6-8 hours per night. Patient will attend 50% or more of groups. Patient will eat 50% or more of meals. Patient will remain medication compliant. Patient will follow the recommendations of treatment team. Outcome: Progressing Problem: Suicide Risk Goal: Absence of Self-Harm Description: Patient will be free of self-harm and thoughts of self-harm by discharge. Outcome: Progressing Problem: Thought Process Alteration Goal: Optimal Thought Clarity Description: Patient will be able to have a linear, reality based conversation by discharge. Outcome: Progressing Patient isolated to his room much of the day. He took all medications as prescribed. Does not want to talk with staff. Says he is doing fine and denies all mental health concerns. Taking PRN medications frequently. Please see MAR for medications times. Requested IM Ativan multiple times this evening but was agreeable to try other medications first. Ate 100% of meals. No complaints of pain. VS WNL. Face to face end of shift report communicated to substation operator apprentice RN. Ivelisse Masters RN 10/19/2023 8:38 PM * Plan of Care - Melissa Corley RN - 10/19/2023 11:21 AM CDT Problem: Adult Behavioral Health Plan of Care Goal: Patient-Specific Goal (Individualization) Description: Patient will sleep 6-8 hours per night. Patient will attend 50% or more of groups. Patient will eat 50% or more of meals. Patient will remain medication compliant. Patient will follow the recommendations of treatment team. Outcome: Progressing Note: 0830 Patient is in bed after eating breakfast meal. Patient requested and given Zyprexa 10 mg po for complaints of anxiety. Patient does not participate in unit or groups. Patient states that he slept ok. Patient denies physical problems and pain. Patient steady on his feet. No current evidence of a/v hallucinations. Patient denies suicidal thoughts. 1430 Patient received Hydroxyzine 25 mg po for anxiety. Patient has slept most of the day and up for meals only. Face to face end of shift report communicated to 3-11 shift RN. Melissa Corley RN 10/19/2023 2:53 PM Problem: Suicide Risk Goal: Absence of Self-Harm Description: Patient will be free of self-harm and thoughts of self-harm by discharge. Outcome: Progressing Problem: Thought Process Alteration Goal: Optimal Thought Clarity Description: Patient will be able to have a linear, reality based conversation by discharge. Outcome: Progressing Goal Outcome Evaluation: Plan of Care Reviewed With: patient * Plan of Care - Juanpablo Chavez RN - 10/19/2023 12:15 AM CDT Problem: Adult Behavioral Health Plan of Care Goal: Patient-Specific Goal (Individualization) Description: Patient will sleep 6-8 hours per night. Patient will attend 50% or more of groups. Patient will eat 50% or more of meals. Patient will remain medication compliant. Patient will follow the recommendations of treatment team. Outcome: Progressing Goal Outcome Evaluation: Face to face shift report received from RN. Rounding completed, pt observed.Client rested in room for 6 hours with eyes closed and respirations noted.Client received Vistaril 25 mg po for anxiety andZyprexa for feelings of agitation at 0039.Face to face report will be communicated to oncoming RN. Juanpablo Chavez RN 10/19/2023 5:58 AM * Plan of Care - Melissa Corley RN - 10/18/2023 5:08 PM CDT Problem: Adult Behavioral Health Plan of Care Goal: Patient-Specific Goal (Individualization) Description: Patient will sleep 6-8 hours per night. Patient will attend 50% or more of groups. Patient will eat 50% or more of meals. Patient will remain medication compliant. Patient will follow the recommendations of treatment team. 10/18/2023 1701 by Melissa Corley RN Outcome: Progressing Note: 1700 Patient is alert and up on the unit. Patient is flat and irritable. Requested and given Zyprexa 10 mg po and hydroxyzine 25 mg po at this time. Patient denies having physical problems or pain. Steady on his feet. Returned to room after medication. 1899 Patient presents to nurses station and states that he really needs some more medication as he is so anxious and is feeling uncomfortable. Patient given Haldol 5 mg IM with Ativan 2 mg IM and Benadryl 50 mg IM at this time. 2031 Patient remains up and had a HS snack. Requested and given Melatonin 3 mg po, Hydroxyzine 25 mg with HS medications. Tells sports writer, Im trying to not take as many of these a day. Face to face end of shift report communicated to 11-7 shift RN. Melissa Corley RN 10/18/2023 8:38 PM Problem: Suicide Risk Goal: Absence of Self-Harm Description: Patient will be free of self-harm and thoughts of self-harm by discharge. Outcome: Progressing Problem: Thought Process Alteration Goal: Optimal Thought Clarity Description: Patient will be able to have a linear, reality based conversation by discharge. 10/18/2023 1701 by Melissa Corley RN Outcome: Progressing Goal Outcome Evaluation: Plan of Care Reviewed With: patient * Plan of Care - Melissa Corley RN - 10/18/2023 8:56 AM CDT Problem: Adult Behavioral Health Plan of Care Goal: Patient-Specific Goal (Individualization) Description: Patient will sleep 6-8 hours per night. Patient will attend 50% or more of groups. Patient will eat 50% or more of meals. Patient will remain medication compliant. Patient will follow the recommendations of treatment team. Outcome: Progressing Note: 0815 Patient is alert and up on the unit for breakfast meal. Requested and given Zyprexa 10 mg po and Hydroxyzine 25 mg po for complaints of anxiety. Patient also states that he does not have currentpain. Affect is flat and patient does not make eye contact with sports writer. Ate well for breakfast meal. 1430 Patient has remained in bed throughout the day. Refused lab draw earlier. Patient is flat and irritable. Ate well for lunch meal. Face to face end of shift report communicated to 3-11 shift RN. Melissa Corley RN 10/18/2023 2:34 PM Problem: Thought Process Alteration Goal: Optimal Thought Clarity Description: Patient will be able to have a linear, reality based conversation by discharge. Outcome: Progressing Goal Outcome Evaluation: Plan of Care Reviewed With: patient * Plan of Care - Juanpablo Chavez RN - 10/17/2023 11:50 PM CDT Problem: Adult Behavioral Health Plan of Care Goal: Patient-Specific Goal (Individualization) Description: Patient will sleep 6-8 hours per night. Patient will attend 50% or more of groups. Patient will eat 50% or more of meals. Patient will remain medication compliant. Patient will follow the recommendations of treatment team. Outcome: Progressing Goal Outcome Evaluation: Face to face report will be communicated to oncoming RN.Client rested in room for 7 hours with eyesclosed and respirations noted.Face to face report will be communicated to oncoming RN. Juanpablo Chavez RN 10/18/2023 6:30 AM * Plan of Care - Ivelisse Masters RN - 10/17/2023 5:23 PM CDT SHIFT NOTE: 0700 to 2330 Problem: Thought Process Alteration Goal: Optimal Thought Clarity Description: Patient will be able to have a linear, reality based conversation by discharge. Outcome: Progressing Problem: Adult Behavioral Health Plan of Care Goal: Patient-Specific Goal (Individualization) Description: Patient will sleep 6-8 hours per night. Patient will attend 50% or more of groups. Patient will eat 50% or more of meals. Patient will remain medication compliant. Patient will follow the recommendations of treatment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 CDT 10 mg OLANZapine (zyPREXA) tablet 10 mg 10 mg, Oral, 3 TIMES DAILY PRN, agitation, 1st choice., Starting on Sun10/17/23 at 1726, Not to exceed 30 mg in 24 hours. Doses should be at least 2 hours apart. Olanzapine to be used first line for agitation, unless otherwise specified. Combined IM and PO doses may significantly increase the risk of orthostatic hypotension at 30 mg per day or higher. $Given 10/26/2023 5:26 AM CDT 10 mg $Given 10/25/2023 3:55 PM CDT 10 mg $Given 10/25/2023 11:02 AM CDT 10 mg OLANZapine (zyPREXA) tablet 10 mg 10 mg, Oral, EVERY 6 HOURS PRN, agitation, PO 2nd chioce., Starting on Sun10/26/23 at 0918, Not to exceed 30 mg in 24 hours. Doses should be at least 2 hours apart. Combined IM and PO doses may significantly increase the risk of orthostatic hypotension at 30 mg per day or higher. $Given 10/30/2023 12:30 PM CDT 10 mg $Given 10/29/2023 7:34 PM CDT 10 mg $Given 10/29/2023 1:35 PM CDT 10 mg propranolol (INDERAL) tablet 10 mg 10 mg, Oral, 3 TIMES DAILY, First dose on Sun10/27/23 at 1030 $Given 10/29/2023 9:34 AM CDT 10 mg $Given 10/28/2023 7:08 PM CDT 10 mg $Given 10/28/2023 1:19 PM CDT 10 mg propranolol (INDERAL) tablet 10 mg 10 mg, Oral, 3 TIMES DAILY, First dose (after last modification) on Sun10/29/23 at 1400, For 2 doses $Given 10/29/2023 7:34 PM CDT 10 mg $Given 10/29/2023 2:27 PM CDT 10 mg propranolol ER (INDERAL LA) 24 hr capsule 60 mg 60 mg, Oral, DAILY, First dose on Sun10/30/23 at 0900, DO NOT CRUSH. $Given 10/30/2023 8:40 AM CDT 60 mg risperiDONE (risperDAL) tablet 0.5 mg 0.5 mg, Oral, EVERY 6 HOURS PRN, other, agitation PO 1st choice., Starting on 10/27/23 at 1008 $Given 10/29/2023 5:51 PM CDT 0.5 mg $Given 10/29/2023 7:39 AM CDT 0.5 mg $Given 10/28/2023 5:57 PM CDT 0.5 mg risperiDONE (risperDAL) tablet 1 mg 1 mg, Oral, AT BEDTIME, First dose on [place]by 10/18/23 at 2100 $Given 10/18/2023 8:06 PM CDT 1 mg risperiDONE (risperDAL) tablet 1 mg 1 mg, Oral, EVERY 6 HOURS PRN, other, agitation PO 1st choice., Starting on Sun10/26/23 at 0916 $Given 10/27/2023 6:40 AM CDT 1 mg $Given 10/26/2023 9:25 AM CDT 1 mg risperiDONE (risperDAL) tablet 2 mg 2 mg, Oral, AT BEDTIME, First dose (after last modification) on Sun10/19/23 at 2100 $Given 10/19/2023 8:06 PM CDT 2 mg risperiDONE (risperDAL) tablet 3 mg 3 mg, Oral, AT BEDTIME, First dose (after last modification) on 10/20/23 at 2100 $Given 10/20/2023 8:09 PM CDT 3 mg risperiDONE (risperDAL) tablet 4 mg 4 mg, Oral, AT BEDTIME, First dose (after last modification) on Sun10/21/23 at 2100 $Given 10/29/2023 7:34 PM CDT 4 mg $Given 10/28/2023 7:08 PM CDT 4 mg $Given 10/27/2023 7:00 PM CDT 4 mg documented in this encounter Active and Recently Administered Medications Times are shown in CDT. Scheduled Medication Order 10/28/2023 10/29/2023 10/30/2023 divalproex sodium extended-release (DEPAKOTE ER) 24 hr tablet 1,500 mg 1,500 mg, Oral, AT BEDTIME, First dose (after last modification) on Sun10/26/23 at 2100, DO NOT CRUSH. 190 ($Given - Provider: Latha Otto RN) 1933 ($Given - Provider: Amparo Sanon RN) escitalopram (LEXAPRO) tablet 20 mg 20 mg, Oral, DAILY, First dose (after last modification) on Sun10/21/23 at 0900 0756 ($Given - Provider: Juana Luis RN)0805 (Canceled Entry - Provider: Juana Luis RN) 0802 ($Given - Provider: Margareth Mcarthur, MORGAN) 0836 ($Given - Provider: Cinthia Hardy, MORGAN) loratadine (CLARITIN) tablet 10 mg 10 mg, Oral, DAILY, First dose on 10/20/23 at 1400 0802 ($Given - Provider: Juana Luis RN) 0804 ($Given - Provider: Margareth Mcarthur RN) 0836 ($Given - Provider: Cinthia Hardy RN) propranolol (INDERAL) tablet 10 mg (CANCELED) 10 mg, Oral, 3 TIMES DAILY, First dose on 10/27/23 at 1030 0802 ($Given - Provider: Juana Luis RN)1319 ($Given - Provider: Juana Luis RN)1908 ($Given - Provider: Latha Otto RN) 0934 ($Given - Provider: Margareth Mcarthur RN) propranolol (INDERAL) tablet 10 mg (COMPLETED) 10 mg, Oral, 3 TIMES DAILY, First dose (after last modification) on Sun10/29/23 at 1400, For 2 doses 1427 ($Given - Provider: Margareth Mcarthur RN)1934 ($Given - Provider: Amparo Sanon RN) propranolol ER (INDERAL LA) 24 hr capsule 60 mg 60 mg, Oral, DAILY, First dose on Sun10/30/23 at 0900, DO NOT CRUSH. 0840 ($Given - Provider: Cinthia Hardy RN) risperiDONE (risperDAL) tablet 4 mg 4 mg, Oral, AT BEDTIME, First dose (after last modification) on Sun10/21/23 at 2100 1908 ($Given - Provider: Latha Otto RN) 1934 ($Given - Provider: Amparo Sanon RN) PRN Medication Order 10/28/2023 10/29/2023 10/30/2023 acetaminophen (TYLENOL) tablet 650 mg 650 mg, Oral, EVERY 4 HOURS PRN, mild pain, to moderate pain, Starting on Sun10/16/23 at 1800, Do not use if the patient has significant liver disease. MAX acetaminophen = 4000 mg/24 hrs. MAX acetaminophen LESS than 3000 mg/24 hrs for patients GREATER than or EQUAL to 65 years old. Maximum acetaminophen dose from all sources = 75 mg/kg/day not to exceed 4 grams/day. alum & mag hydroxide-simethicone (MAALOX) suspension 30 mL 30 mL, Oral, EVERY 4 HOURS PRN, indigestion, Starting on Sun10/16/23 at 1800, Shake well. cloNIDine (CATAPRES) tablet 0.1 mg 0.1 mg, Oral, 3 TIMES DAILY PRN, anxiety/restlessness, Starting on Sun10/23/23 at 1520, 2nd choice anxiety Hold for SBP < 100 and/or pulse < 60 0948 ($Given - Provider: Juana Luis RN)1756 ($Given - Provider: Jhon Thomson RN) 0739 ($Given - Provider: Margareth Mcarthur RN) 1037 ($Given - Provider: Cinthia Hardy, MORGAN) hydrOXYzine HCl (ATARAX) tablet 50 mg 50 mg, Oral, EVERY 4 HOURS PRN, anxiety, Starting on Sun10/20/23 at 0748, 1st choice anxiety 0802 ($Given - Provider: Juana Luis RN)1624 ($Given - Provider: Latha Otto RN) 0754 (Canceled Entry - Provider: Margareth Mcarthur RN)0913 ($Given - Provider: Margareth Mcarthur RN)1751 ($Given - Provider: Amparo Sanon RN) 1037 ($Given - Provider: Cinthia Hardy, MORGAN) melatonin tablet 3 mg 3 mg, Oral, AT BEDTIME PRN, sleep, Starting on Sun10/16/23 at 1800, If multiple medications are ordered PRN sleep/insomnia, offer melatonin first, unless otherwise specified. 1908 ($Given - Provider: Latha Otto, MORGAN) nicotine polacrilex (NICORETTE) gum 4 mg 4 mg, Buccal, EVERY 1 HOUR PRN, nicotine withdrawal symptoms, Starting on Sun10/26/23 at 1145, Gum should be chewed slowly until it tingles, then placed between cheek and gum: when tingle gone, repeat process until tingle gone (about 30 minutes). 0802 ($Given - Provider: Juana Luis RN)0906 ($Given - Provider: Juana Luis, MORGAN)1008 ($Given - Provider: Juana Luis, MORGAN)1108 ($Given - Provider: Juana Luis RN)1223 ($Given - Provider: Juana Luis, RN)1319 ($Given - Provider: Juana Luis, RN)1624 ($Given - Provider: Latha Otto RN)1758 ($Given - Provider: Jhon Thomson RN) 0708 ($Given - Provider: Juanpablo Chavez RN)0828 ($Given - Provider: Margareth Mcarthur RN)1014 ($Given - Provider: Margareth Mcarthur RN)1126 ($Given - Provider: Margareth Mcarthur RN)1246 ($Given - Provider: Margareth Mcarthur RN)1351 ($Given - Provider: Sybil Pires RN)1742 ($Given - Provider: Amparo Sanon RN)1847 ($Given - Provider: Slime Herman RN)2050 ($Given - Provider: Mary Hancock RN) 0806 ($Given - Provider: Sybil Pires RN)0932 ($Given - Provider: Sybil Pires, MORGAN)1037 ($Given - Provider: Cinthia Hardy RN)1230 ($Given - Provider: Cinthia Hardy RN) OLANZapine (zyPREXA) injection 10 mg(Linked Group 1) 10 mg, Intramuscular, EVERY 6 HOURS PRN, agitation, if patient unable to take PO.IM 1st choice., Starting on Sun10/26/23 at 0918, Max of 30 mg in a 24 hour period. Doses should be at least 2 hours apart. At least 1 hour is recommended between administration of IM olanzapine and an IV/IM benzodiazepine to minimize risk of excessive sedation and cardiorespiratory depression. Dissolve the contents of the 10 mg vial using 2.1 mL of Sterile Water for Injection to provide a solution containing 5 mg/mL of olanzapine. Withdraw the ordered dose from vial. Use immediately (within 1 hour) after reconstitution. Discard any unused portion. 1058 (See Alternative - Provider: Juana Luis RN)1624 (See Alternative - Provider: Latha Otto RN) 0913 (See Alternative - Provider: Margareth Mcarthur RN)1335 (See Alternative - Provider: Sybil Pires RN)1934 (See Alternative - Provider: Amparo Sanon RN) 1230 (See Alternative - Provider: Cinthia Hardy RN) OLANZapine (zyPREXA) tablet 10 mg(Linked Group 1) 10 mg, Oral, EVERY 6 HOURS PRN, agitation, PO 2nd chioce., Starting on Sun10/26/23 at 0918, Not to exceed 30 mg in 24 hours. Doses should be at least 2 hours apart. Combined IM and PO doses may significantly increase the risk of orthostatic hypotension at 30 mg per day or higher. 1058 ($Given - Provider: Juana Luis RN)1624 ($Given - Provider: Latha Otto RN) 0913 ($Given - Provider: Margareth Mcarthur RN)1335 ($Given - Provider: Sybil Pires RN)1934 ($Given - Provider: Amparo Sanon RN) 1230 ($Given - Provider: Cinthia Hardy RN - Comment: per pt. request for agitation.) risperiDONE (risperDAL) tablet 0.5 mg 0.5 mg, Oral, EVERY 6 HOURS PRN, other, agitation PO 1st choice., Starting on 10/27/23 at 1008 0802 ($Given - Provider: Juana Luis RN)1439 (Not Given - Provider: Juana Luis RN - Reason: Patient sleeping)1757 ($Given - Provider: Jhon Thomson RN) 0739 ($Given - Provider: Margareth Mcarthur RN)1751 ($Given - Provider: Amparo Sanon RN) Linked Groups Order Group 1: OLANZapine (zyPREXA) tablet 10 mgJump to med 10 mg, Oral, EVERY 6 HOURS PRN, agitation, PO 2nd chioce., Starting on Sun10/26/23 at 0918, Not to exceed 30 mg in 24 hours. Doses should be at least 2 hours apart. Combined IM and PO doses may significantly increase the risk of orthostatic hypotension at 30 mg per day or higher. Or OLANZapine (zyPREXA) injection 10 mgJump to med 10 mg, Intramuscular, EVERY 6 HOURS PRN, agitation, if patient unable to take PO.IM 1st choice., Starting on Sun10/26/23 at 0918, Max of 30 mg in a 24 hour period. Doses should be at least 2 hours apart. At least 1 hour is recommended between administration of IM olanzapine and an IV/IM benzodiazepine to minimize risk of excessive sedation and cardiorespiratory depression. Dissolve the contents of the 10 mg vial using 2.1 mL of Sterile Water for Injection to provide a solution containing 5 mg/mL of olanzapine. Withdraw the ordered dose from vial. Use immediately (within 1 hour) after reconstitution. Discard any unused portion. documented in this encounter Care Teams Machine Sizer Relationship Specialty Start Date End Date [facility] - [address] [address] PCP - General Internal Medicine 10/15/23 documented as of this encounter
--- OUTSIDE RECORDS SUMMARY | 2023-11-01 23:56 | XMS_ITS | Encounter Summary ---
Author Organization [place] Address [address] [place] [address] Care Team Providers Care Storm Chaser Name Role Phone Clinic - [facility] Primary Care Provider Reason for Visit * Reason Onset Date Comments MH/CD Inpatient 10/16/2023 Encounter Details Date Type Department Care Team ([facility] st Contact Info) Description 10/16/2023 Telephone [facility] Behavioral Health Intake [address] [place] [address] Generic, Behavioral Intake, MH/CD Inpatient Social History Tobacco Use Types Packs/Day Years [...] on file documented as of this encounter Miscellaneous Notes * Telephone Encounter - Maria Elena Aguilar - 10/16/2023 8:10 AM CDT R: 8:05 AM Received a call from Mo[facility] from [facility] reporting that pt has been accepted for admission to [address] [place] [address]. RN can call for report at [phone]. 8:35 AM Called [facility] ED and provided placement info. Pt placed in queue, added to admit board, indicia completed. documented in this encounter Plan of Treatment Not on file documented as of this encounter Visit Diagnoses Not on filedocumented in this encounter Additional Health Concerns Infection Onset Date Last Indicated Resolved Time MRSA 06/23/2021 06/23/2021 10/16/2023 9:21 AM CDT documented as of this encounter Care Teams Storm Chaser Relationship Specialty Start Date End Date Clinic - [address] [address] PCP - General Internal Medicine 10/15/23 documented as of this encounter
--- OUTSIDE RECORDS SUMMARY | 2023-11-01 23:56 | XMS_ITS | Encounter Summary ---
Author Organization [place] Address [address] [place] [address] Care Team Providers Care Watch Band Assembler Name Role Phone Clinic - [facility] Primary Care Provider Encounter Details Date Type Department Care Team (Late st Contact Info) Description 10/31/2023 Telephone [facility] [address] [address] Jay Garcia, DO [address] [address] Social History Tobacco Use Types Packs/Day Years [...] encounter Miscellaneous Notes * Telephone Encounter - Ivelisse Masters RN - 10/31/2023 2:37 PM CDT [facility]: Post-Hospital Discharge Note Situation Post hospital discharge call placed 10/31/23. This typewriter mechanic spoke with N/A. Wrong number. No other number for patient available. Landon did not answer. Phone number in chart is not patient's number. A message was not left. Messages are left with a call back number should they need to reach staff with any questions, need foradditional resources, or need assistance setting up a post hospitalization follow up appointments, if unable to do so independently. Inpatient Mental Health Admission Information: Admission Date: 10/16/2023 Admission Reason: This is a 38 year old male with a PMH of schizoaffective disorder, bipolar type, MDD, PTSD, and polysubstance abuse (THC, meth, possibly others) who presents with psychosis occurring in the setting of general stressors. The patient has a history of hospitalization in 2007. He has a previous diagnosis of a schizophrenia spectrum disorder but validity questioned while in intermediate. He has not been engaged in treatment recently. He is signs of dissociation and quite graphic visual hallucinations like faces in toast with him making contradictory statements [...] time, given medications will likely be sufficient. Inpatient Mental Health Discharge Information: Discharge Date: 10/30/2023 Discharged to: Home or Self Care Discharge Diagnosis: #. Schizoaffective disorder, bipolar type, current episode depressed #. Stimulant (meth and cocaine) use disorder, severe #. Sedative-hypnotic (Soma) use disorder Background The following information is obtained from the hospital after visit summary and inpatient provider notes. Legal status: Orders Placed This Encounter Voluntary [...] to the patient's psychotropic medications were made: INFORMATION COORDINATOR psychotropic medications held: -None, as not on any INFORMATION COORDINATOR psychotropic medications continued/changed: -None, as not on [...] medically stable at the time of discharge. Post Discharge Assessment How have your symptoms been since being discharged from the hospital? N/A Do you have your discharge instructions/after visit summary? N/A Do you have any questions related to your discharge instructions? N/A Discharge Medication Assessment Medications were reviewed in full on discharge, including: Medications to be started, medications to be stopped, medications to be continued from preadmission and any side effects. Prescriptions were e-scribed or sent to their preferred pharmacy at discharge and were able to be filled: NA Do you have any questions about your medications? N/A Outpatient Plan/Future Appointments Discharge follow up appointment scheduled within 14 days of discharging from hospital? Yes Health Care Follow-up: [facility]- November 04 @ 12:30pm with Obe [address], [address] [place] [address] F: [phone] Further information, barriers, or follow up this typewriter mechanic has addressed: N/A documented in this encounter Plan of Treatment Not on file documented as of this encounter Visit Diagnoses Not on filedocumented in this encounter Care Teams Watch Band Assembler Relationship Specialty Start Date End Date Clinic - [address] [address] PCP - General Internal Medicine 10/15/23 documented as of this encounter
--- OUTSIDE RECORDS SUMMARY | 2023-11-01 23:56 | XMS_ITS | Encounter Summary ---
Author Organization [place] Address [address] [place] [address] Care Team Providers Care Dough Mixer Operator Name Role Phone Clinic - [facility] Primary Care Provider Reason for Visit * Reason Onset Date Comments MH/CD Inpatient 10/16/2023 Encounter Details Date Type Department Care Team ([facility] st Contact Info) Description 10/16/2023 Telephone [facility] Behavioral Health Intake [address] [place] [id number] Generic, Behavioral Intake, MH/CD Inpatient (/) Social History Tobacco Use Types Packs/Day Years [...] encounter Miscellaneous Notes * Telephone Encounter - YungisaacMary swann Yoly - 10/16/2023 12:46 AM CDT 00:45 - Called [facility] BRITT Raymundo to request review 04:44 - [facility] CRN requesting CBC and CMP 04:47 - Called ED MORGAN Le to request CBC and CMP 06:43 - [facility] BRITT Raymundo called, he will pass case to oncoming shift to complete review as CMP is still processing. Awaiting CB R: [facility] Access Inpatient Bed Call Log 10/16/2023 @ 12:00 AM: Intake has called facilities that have not updated their bed status within the last 12 hours. *Statewide* [facility] is posting 0 beds. [facility] is posting 0 beds. [phone]. Per Lora @ 12:03AM, they are full [facility] is posting 0 beds. [phone] [facility] is posting 0 beds. [phone] [facility] is posting 0 beds. [phone] [facility] (These are Young Adult beds, 18-28) is posting 0 beds. Negative COVID test required, no recent or significant aggression, violence, or sexual assault. [facility] is posting 0 beds. [phone] [facility] is posting 0 beds. [facility] through [facility] is posting 0 beds. [facility] is posting 2 beds. Mixed unit 12+. Low acuity only. DIRECT: [phone] [facility] is posting 2 beds. No aggression. [facility] is posting 0 beds. [facility] is posting 0 beds. Low acuity only. [phone] [facility] is posting 0 beds. Low acuity. No current aggression. [phone] [facility] is posting 0 beds. Low acuity. [phone] [facility] is posting 0 beds. 72 HH preferred. Low acuity. [facility] is posting 0 beds. Low acuity. [phone] [facility] is posting 4 beds. Vol only, No Hx of aggression, violence, or assault. Nosexual offenders. No 72 hr holds. [phone] [facility] is posting 5 beds. (Must have the cognitive ability to do programming. No aggressive or violent behavior or recent HX in the last 2 yrs. MH must be primary.) [facility] is posting 0 beds. Low acuity only. Violence and aggression capped. [facility] is posting 2 beds. Low acuity, Neg Covid. . Per Payam @ 12:04AM, they are full [place] [facility] [place] posting 6 beds. Negative covid. Per Yadi @ 11:38PM, few beds available [facility] is posting 1 bed. no wounds, lines, drains, C-paps, tubes and must be able to care for themselves; no heavy hx of aggression. Pt also needs a confirmed ride from facility upon d/c. [facility] is posting 6 beds. Call for details. [phone] OUT OF STATE [facility] is posting 3 beds. Mixed unit. . Per Mary @ 12:05AM, no high acuity beds available tonight, only low acuity beds on general unit (ages 13+) Pt remains on work list pending appropriate bed availability. documented in this encounter Plan of Treatment Not on file documented as of this encounter Visit Diagnoses Not on filedocumented in this encounter Additional Health Concerns Infection Onset Date Last Indicated Resolved Time MRSA 06/23/2021 06/23/2021 10/16/2023 9:21 AM CDT documented as of this encounter Care Teams Dough Mixer Operator Relationship Specialty Start Date End Date [facility] - [address] [address] PCP - General Internal Medicine 10/15/23 documented as of this encounter
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
--- OUTSIDE RECORDS SUMMARY | 2023-11-01 23:57 | XMS_ITS | Encounter Summary ---
Author Organization [place] Address [address] [facility] [place] [address] Care Team Providers Care Spiral Winder Name Role Phone No Ref-Primary, Physician Primary Care Provider Leah Dale APRN BIOMEDICAL EQUIPMENT SPECIALIST Primary Care Provider Meng Conner MD Primary Care Provider [phone] [facility] Primary Care Provide r [facility] Primary Care Provider Reason for Visit * Reason Onset Date Comments MH/CD Inpatient 07/22/2013 Encounter Details Date Type Department Care Team ([facility] st Contact Info) Description 07/22/2013 [facility] Behavioral Health Intake [address] [place] [address] Generic, Behavioral Intake, MH/CD Inpatient Social History Tobacco Use Types Packs/Day Years Used Date Smoking Tobacco: Every Day Cigarettes 0.5 1 Comments:e cig Alcohol Use Standard Drinks/Week Comments No 0 (1 standard drink = 0.6 oz pure alcohol) Not drinking any more, sober about 1 year Sex and Gender Information Value Date Recorded Sex Assigned at Not on file Gender Identity Not on file Sexual Orientation Not on file documented as of this encounter Miscellaneous Notes * Telephone Encounter - Wale Archibald - 07/22/2013 2:51 PM CST S; Patient presents to [facility] dropped off. Melissa provides clinical. B: Patient was discharged from this facility on the 11 of July. Patient has a history of schizoaffective disorder. Patient has been using methamphetamine today. Patient was supposed to follow upwith 9 sessions of ECT since discharge. Patient has not done these treatments because no one was available to supervise him following the treatment. Patient has not filled his medications since discha rge. Patient presents today saying he is an informant and that this place is the only safe place tomeet with someone. Patient denies hallucinations at this time. Patient believes his phone is tapped. Patient believes he is a drug informant and that someone may have set him up to see if he would snitch. Patient denies suicidal and homicidal at this time. Patient does have a history of suicide atte mpt by hanging himself. A: Patient has been medically assessed and cleared for admission. Patient has been somewhat agitated in ED but is directable. Patient has not required medication in ED. Patient is voluntary at this time. R: Admit to station 20, [place] accepts. OGRAPHER documented in this encounter Plan of Treatment Not on file documented as of this encounter Visit Diagnoses Not on filedocumented in this encounter Additional Health Concerns Infection Onset Date Last Indicated Resolved Time MRSA-Contact Isolation Comment:MRSA: 8-02 skin and sputum Infection erroneous 06/06/2021 11 :03 AM VIDEOGRAPHER MRSA 06/23/2021 06/23/2021 10/16/2023 9:21 AM CDT documented as of this encounter Care Teams Spiral Winder Relationship Specialty Start Date End Date No Ref-Primary, Physician PCP - General 06/23/13 09/19/13 Leah Dale APRN CNP PCP - General Nurse Practitioner - Adult Health 09/20/13 01/10/15 Meng Conner MD PCP - General Internal Medicine 12/13/15 07/12/[address] [address] PCP - General 10/16/22 10/14/23 Clinic - [address] [address] PCP - General Internal Medicine 10/15/23 documented as of this encounter
--- OUTSIDE RECORDS SUMMARY | 2023-11-01 23:57 | XMS_ITS | Encounter Summary ---
Author Organization [place] Address [facility] [place] [address] Care Team Providers Care Ebay Reseller Name Role Phone No Ref-Primary, Physician Primary Care Provider Leah Dale APRN TRANSMISSION OPERATOR Primary Care Provider Meng Conner MD Primary Care Provider [phone] [facility] Primary Care Provide r [facility] Primary Care Provider Reason for Visit * Reason Onset Date Comments MH/CD Inpatient 08/20/2013 Encounter Details Date Type Department Care Team ([facility] st Contact Info) Description 08/20/2013 [facility] Behavioral Health Intake [address] [place] [address] Generic, Behavioral Intake, MH/CD Inpatient [...] encounter Miscellaneous Notes * Telephone Encounter - Anupam Irwin - 08/20/2013 3:09 PM CDT Pt [facility] in [facility] psychosis. B: pt worsening psychosis of hearing voices of Negative content. Inc paranoid Delusions of people watching him and predicting his Behaviors. ptbelieves people are after him. A: inc psychosis. Calm, cooperative,vol. R: winegarden/77 documented in this encounter Plan of Treatment Not on file documented as of this encounter Visit Diagnoses Not on filedocumented in this encounter Additional Health Concerns Infection Onset Date Last Indicated Resolved Time MRSA-Contact Isolation Comment:MRSA: 01-21-02 skin and sputum Infection erroneous 06/06/2021 11 :03 AM ONLINE TUTOR MRSA 06/23/2021 06/23/2021 10/16/2023 9:21 AM CDT documented as of this encounter Care Teams Ebay Reseller Relationship Specialty Start Date End Date No Ref-Primary, Physician PCP - General 06/23/13 09/19/13 Leah Dale APRN TRANSMISSION OPERATOR PCP - General Nurse Practitioner - Adult Health 09/20/13 01/10/15 Meng Conner MD PCP - General Internal Medicine 12/13/15 07/12/[address] [address] PCP - General 10/16/22 10/14/[address] [address] PCP - General Internal Medicine 10/15/23 documented as of this encounter
--- OUTSIDE RECORDS SUMMARY | 2023-11-01 23:57 | XMS_ITS | Encounter Summary ---
Author Organization [place] Address [address] [place] [address] Care Team Providers Care Internal Recruiter Name Role Phone No Ref-Primary, Physician Primary Care Provider Leah Dale APRN MICROWAVE REMOTE SENSING SCIENTIST Primary Care Provider Meng Conner MD Primary Care Provider [phone] [facility][Note 3] Primary Care Provide r [facility] Primary Care Provider Reason for Visit * Reason Onset Date Comments MH/CD Inpatient 06/23/2013 Encounter Details Date Type Department Care Team ([facility] st Contact Info) Description 06/23/2013 Telephone [facility] Behavioral Health Intake [address] [place] [address] Generic, Behavioral Intake, MH/CD Inpatient Social History Tobacco Use Types Packs/Day Years Used Date Smoking Tobacco: Every Day Cigarettes 0.5 1 Alcohol Use Standard Drinks/Week Comments No 0 (1 standard drink = 0.6 oz pure alcohol) Not drinking any more, sober about 1 year Sex and Gender Information Value Date Recorded Sex Assigned at Not on file Gender Identity Not on file Sexual Orientation Not on file documented as of this encounter Miscellaneous Notes * Telephone Encounter - Franca Phan - 06/23/2013 9:14 PM CST S: pt in [facility] er. Pt states he is not functioning, cant sleep, cant concentrate. Pt feels hopeless but is not suicidal. B:Pt recently inpt. Pt went off meds at that time, was depressed, paranoid, and hearing voices. A: Pt has not taken meds in the past week. Pt is on probation but will not crow anyone why. Pt lays in bed int he ER, back to integrity assessor, selectivly answers questions. Pt is vol. R: admit st 10/ Dr Hogan OTIONS ASSISTANT SALES MARKETING documented in this encounter Plan of Treatment Not on file documented as of this encounter Visit Diagnoses Not on filedocumented in this encounter Additional Health Concerns Infection Onset Date Last Indicated Resolved Time MRSA-Contact Isolation Comment:MRSA: 01-21-02 skin and sputum Infection erroneous 06/06/2021 11 :03 AM PROMOTIONS ASSISTANT SALES MARKETING MRSA 06/23/2021 06/23/2021 10/16/2023 9:21 AM CDT documented as of this encounter Care Teams Internal Recruiter Relationship Specialty Start Date End Date No Ref-Primary, Physician PCP - General 06/23/13 09/19/13 Leah Dale APRN MICROWAVE REMOTE SENSING SCIENTIST PCP - General Nurse Practitioner - Adult Health 09/20/13 01/10/15 Meng Conner MD PCP - General Internal Medicine 12/13/15 07/12/[address] [id number] PCP - General 10/16/22 10/14/[address] [address] PCP - General Internal Medicine 10/15/23 documented as of this encounter
--- OUTSIDE RECORDS SUMMARY | 2023-11-01 23:57 | XMS_ITS | Encounter Summary ---
Author Organization [facility] Address [address] [place] [address] Care Team Providers Care Java Jsf Developer Name Role Phone Meng Conner MD Primary [...] on filedocumented in this encounter Care Teams Java Jsf Developer Relationship Specialty Start Date End Date Meng Conner MD [address] [place], [address] PCP - General 02/03/16 documented as of this encounter
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
--- OUTSIDE RECORDS SUMMARY | 2023-11-01 23:57 | XMS_ITS | Encounter Summary ---
Author Organization [place] Address [address] [place] [id number] Care Team Providers Care Tire Shop Manager Name Role Phone Nilay Mary [facility] Primary Care Provider Encounter Details Date Type Department Care Team (Latest Contact Info) Description 10/15/2023 Travel Social History Tobacco Use Types Packs/Day Years [...] documented as of this encounter Care Teams Tire Shop Manager Relationship Specialty Start Date End Date Nilay Mary [address] [address] PCP - General Internal Medicine 10/15/23 documented as of this encounter
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
--- OUTSIDE RECORDS SUMMARY | 2023-11-01 23:57 | XMS_ITS | Encounter Summary ---
Author Organization [place] Address [address] [facility] [place] [address] Care Team Providers Care Mushroom Cultivator Name Role Phone Avani Flowers Md Primary Care Provider Gene Mcgregor MD Primary Care Provider [phone] No Ref-Primary, Physician Primary Care Provider Leah Dale APRN [facility] Primary Care Provider Meng Conner MD Primary Care Provider [phone] [facility] Primary Care Provide r [facility] Primary Care Provider Encounter Details Date Type Department Care Team (Late st Contact Info) Description 11/17/[address] [place] [address] Meng Conner MD XXX RESIGNED XXX [address] [place] [address] [facility] SUMMARY Social History Tobacco Use Types Packs/Day Years [...] as of this encounter Visit Diagnoses Diagnosis [facility]- Primary documented in this encounter Additional Health Concerns Infection Onset Date Last Indicated Resolved Time MRSA-Contact Isolation Comment:MRSA: 01-21-02 skin and sputum Infection erroneous 06/06/2021 11 :03 AM BOND WRITER MRSA 06/23/2021 06/23/2021 10/16/2023 9:21 AM CDT documented as of this encounter Care Teams Mushroom Cultivator Relationship Specialty Start Date End Date Avani Flowers Md PCP - General 03/07/12 05/29/13 Gene Laws MD [address] [place] [address] PCP - General Psychiatry 05/30/13 05/30/13 No Ref-Primary, Physician PCP - General 06/23/13 09/19/13 Leah Dale APRN POULTRY PICKER PCP - General Nurse Practitioner - Adult Health 09/20/13 01/10/15 Meng Conner MD PCP - General Internal Medicine 12/13/15 07/12/[address] [address] PCP - General 10/16/22 10/14/[address] [address] PCP - General Internal Medicine 10/15/23 documented as of this encounter
--- OUTSIDE RECORDS SUMMARY | 2023-11-01 23:57 | XMS_ITS | Encounter Summary ---
Author Organization [facility] Address [address] [place] [address]. [place] [address] Care Team Providers Care Sap Business Intelligence Consultant Name Role Phone Leah Dale APRN, CNP Primary Care Provider Meng Conner MD Primary Care Provider [phone] [facility] Primary Care Provide r [facility] Primary Care Provider Reason for Visit * Reason Onset Date Comments Mental Health Problem 11/01/2013 Encounter Details Date Type Department Care Team (Late st Contact Info) Description 11/01/2013 Telephone [facility] Behavioral Health Intake [address] [place] [address] Generic, Behavioral IntakeMD Mental Health Problem Social History Tobacco Use Types Packs/Day Years Used Date Smoking Tobacco: Former Cigarettes 0.5 1 Smokeless Tobacco: Former Quit: 09/02/2013 Comments:e [...] encounter Miscellaneous Notes * Telephone Encounter - Brittany Thao - 11/01/2013 1:33 PM CDT Resident (Carol Pelayo) called to request pt [facility] [address] [facility]; per Carol, case was discussed w/ Dr. Thakkar, and [place] accepts for [facility] documented in this encounter Plan of Treatment Not on file documented as of this encounter Visit Diagnoses Not on filedocumented in this encounter Additional Health Concerns Infection Onset Date Last Indicated Resolved Time MRSA-Contact Isolation Comment:MRSA: 8--02 skin and sputum Infection erroneous 06/06/2021 11 :03 AM AGRONOMY SUPERVISOR MRSA 06/23/2021 06/23/2021 10/16/2023 9:21 AM CDT documented as of this encounter Care Teams Sap Business Intelligence Consultant Relationship Specialty Start Date End Date Leah Dale APRN SOLE EDGE INKER MACHINE PCP - General Nurse Practitioner - Adult Health 09/20/13 01/10/15 Meng Conner MD PCP - General Internal Medicine 12/13/15 07/12/[address] [id number] PCP - General 10/16/22 10/14/[address] [address] PCP - General Internal Medicine 10/15/23 documented as of this encounter
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
--- OUTSIDE RECORDS SUMMARY | 2023-11-01 23:57 | XMS_ITS | Encounter Summary ---
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 Name Role Phone Clinic - [facility] Primary Care Provider Reason for Visit * Reason Comments Self Harm - Deliberate Encounter Details Date Type Department Care Team (Late st Contact Info) Description 10/15/2023 7:33 PM CDT - 10/16/2023 2:04 PM CDT Emergency [facility] Emergency Dept [address] [place] [id number] [phone] Lamont Jordan MD Matthews, Jeremiah R, MD [facility] [address] [place] [address] Jacob Shah MD [address] [facility] [address] [id number] Thoughts of self harm; Partial thickness burn of back of left hand, initial encounter; Paranoid delusion (H) Discharge Disposition: [facility] Social History Tobacco Use Types Packs/Day Years [...] Sign Reading Time Taken Comments Blood Pressure 125/88 10/16/2023 2:02 PM CDT Pulse 77 10/16/2023 2:02 PM CDT Temperature 36.5 ??C (97.7 ??F) 10/16/2023 8:41 AM CD T Respiratory Rate 20 10/15/2023 7:28 PM CDT Oxygen Saturation 97% 10/16/2023 2:02 PM CDT Inhaled Oxygen Concentration - - Weight 86.4 kg (190 lb 7.6 oz) 10/15/2023 7:26 P M CDT Height 170.2 cm (5' 7) 10/15/2023 7:26 PM CDT Body Mass Index 29.83 10/15/2023 7:26 PM CDT documented in this encounter Medications at Time of Discharge Medication Sig Dispensed Refills Start Date End Date divalproex sodium extended-release (DEPAKOTE ER) 500 MG 24 hr tabletIndications:Schiz oaffective disorder, bipolar type (H) Take 3 tablets (1,500 mg) by mouth at bedtime 180 tablet 10/30/2023 escitalopram (LEXAPRO) 20 MG tabletIndications:Schiz oaffective disorder, bipolar type (H) Take 1 tablet (20 mg) by mouth daily 60 tablet 10/31/2023 loratadine (CLARITIN) 10 MG tabletIndications:Seaso nal allergic rhinitis, unspecified trigger Take 1 tablet (10 mg) by mouth daily 60 tablet 10/31/2023 propranolol ER (INDERAL LA) 60 MG 24 hr capsuleIndications:Schi zoaffective disorder, bipolar type (H) Take 1 capsule (60 mg) by mouth daily 60 capsule 10/31/2023 risperiDONE (RISPERDAL) 4 MG tabletIndications:Schiz oaffective disorder, bipolar type (H) Take 1 tablet (4 mg) by mouth at bedtime 60 tablet 10/30/2023 carisoprodol (SOMA) 350 MG tablet Take 350 mg by mouth 3 times daily as needed for muscle spasms 09/28/2022 10/30/2023 Melatonin 10 MG TABS tablet Take 10-50 mg by mouth at bedtime 10/17/2023 documented as of this encounter Progress Notes * Jessica Rojas, APRIL - 10/16/2023 1:38 PM CDT Triage & Transition Services, Extended Care Therapy Progress Note Patient: Landon goes by Landon, uses he/him pronouns Date of Service: October 16, 2023 Site of Service: [facility] ED04 Patient was seen yes Mode of Assessment: Virtual: AmWell Presentation Summary: Exchanged greeting with patient. Patient was laying in bed throughout session. Introduced self and role to patient. Pt reported suicidal ideations without plans. Patient reported no change in symptoms. Pt did not answer questions about psychosis. Pt did not open his eyes and the room was dark. Discussed recommendation and pending transfer. Patient is agreeable and stated he is voluntary. Pt complains of back pain and hand pain. Asking for medication. Therapeutic Intervention(s) Provided: Current Symptoms: anxious difficulty concentrating, negativistic, crying or feels like crying, thoughts of /suicide, hoplessness, helplessness, impaired decision making, low self esteem anxious impulsive loss of appetite Mental Status Exam Affect: Appropriate Appearance: Appropriate Attention Span/Concentration: Attentive Eye Contact: Variable Fund of Knowledge: Appropriate Language /Speech Content: Fluent Language /Speech Volume: Normal Language /Speech Rate/Productions: Normal Recent Memory: Variable Remote Memory: Variable Mood: Depressed Orientation to Person: Yes Orientation to Place: Yes Orientation to Time of Day: Yes Orientation to Date: Yes Situation (Do they understand why they are here?): Yes Psychomotor Behavior: Underactive Thought Content: Suicidal Thought Form: Intact Treatment Objective(s) Addressed: rapport building, orienting the patient to therapy, identifying and practicing coping strategies, assessing safety, processing feelings Patient Response to Interventions: verbalizes understanding Progress Towards Goals: Patient Reports Symptoms Are: ongoing Patient Progress Toward Goals: is not making progress Comment: Pt continues to have suicidal ideation and hopelessness. Next Step to Work Toward Discharge: symptom stabilization Symptom Stabilization Comment: Pt will be ready for discharge when he is able to demonstrate ability to keep himself safe in the community and utilize coping skills. Case Management: Case Management Included: collaborating with patient's support system Details on Collaborating with Patient's Support System: Spoke with RN: Renu Moreno. Summary of Interaction: Per RN: Patient has been sleeping all day, wakes up only to use bathroom, no behavioral concerns. Plan: inpatient mental health yes provider Dr. Shah yes Clinical Substantiation: Recommendation for inpatient mental health does not change at this time. Patient reported suicidal ideations without plans but intent. Patient is voluntary for services and has been accepted to [facility] unit pending transfer. 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, predominantly inattentive type F90.0 Major depressive disorder, recurrent episode, moderate (H) F33.1 Schizoaffective disorder, bipolar type (H) F25.0 Nicotine dependence F17.200 Methamphetamine abuse (H) F15.10 OCD (obsessive compulsive disorder) F42.9 Alcohol dependence (H) F10.20 Affective disorder, psychotic (H24) F39 Hyperlipidemia with target LDL less than 130 E78.5 Antisocial personality disorder (H) F60.2 Primary Problem This Admission: Active Hospital Problems Major depressive disorder, recurrent episode, moderate (H) *Affective disorder, psychotic (H24) APRIL Thakur Licensed Mental Health Professional (LMHP), [facility] [phone] documented in this encounter Consult Notes * Nela Cagle APRN CNP - 10/16/2023 8:56 AM CDTAssociated Order(s): PSYCHIATRY IP CONSULT Images from the original note were not included. Initial Psychiatric Consult Consult date: October 16, 2023 Reason for Consult, requesting source: Patient has been accepted to [address] [place] [address] prior to psych consult being completed. Will defer additional treatment to inpatient team. Nela Cagle APRN CNP Consult/Liaison Psychiatry [facility] Contact information available via [facility] Paging/Directory If I am not available, then [facility] CL line ([phone]) should know who is covering our consult service. * Marilin Nugent LPCC - 10/15/2023 10:45 PM CDTAssociated Order(s): DIAGNOSTIC EVALUATION CENTER (DEC) ASSESSMENT ORDER Diagnostic Evaluation Consultation Crisis Assessment Patient Name: Landon Lerma Age: [age] year old Legal Sex: male Gender Identity: male Pronouns: Race: White Ethnicity: Not or Language: Peruvian Patient was assessed: Virtual: PowerReviews Crisis Assessment Start Time: 2244 Crisis Assessment Stop Time: 2300 Patient location: [facility] ED04 Referral Data and Chief Complaint Landon Lerma presents to the ED by [...] an inconsistent appetite. Pt believes it is 2008.. Informed Consent and Assessment Methods Explained the crisis assessment process, including applicable information disclosures and limits toconfidentiality, assessed understanding of the process, and obtained consent to proceed with the assessment. Assessment methods included conducting a formal interview with patient, review of medical records, collaboration with medical staff, and obtaining relevant collateral information from familyand community providers when available. : done Patient response to interventions: acceptance expressed, verbalizes understanding Coping skills were attempted to reduce the crisis: none History of the Crisis Pt denies historical nor current mental health or chemical health issues, including: hospitalizations, inpatient stays, programmatic care, treatment, therapy, or medication management. Pt denies history of SI/SIB/SA/HI and denies plans, means, or intent to harm himself or others. Pt reports historyof visual hallucinations and auditory hallucinations. Per chart review, pt has a history of substance abuse issues, specifically methamphetamine, and has a history of antisocial personality disorder,schizoaffective disorder, and suicide ideation. Per chart review, pt was also seen for an overdose on muscle relaxors in 2007. Brief Psychosocial History Family: Lives with Significant Other, Children yes Support System: None Employment Status: unemployed Source of Income: unemployment Financial Environmental Concerns: unable to afford food, unable to afford medication(s), insurance,none, unemployed Current Hobbies: other (see comments) (I don't know anymore) Barriers in Personal Life: financial concerns, lack of motivation, mental health concerns Significant Clinical History Current Anxiety Symptoms: Current Depression/Trauma: thoughts of /suicide Current Somatic Symptoms: Current Psychosis/Thought Disturbance: visual hallucinations, auditory hallucinations, high risk behavior, forgetful Current Eating Symptoms: Chemical Use History: Alcohol: Social Last Use:: (does not recall) Benzodiazepines: None Opiates: None Cocaine: None Marijuana: None Other Use: None Past diagnosis: No known past diagnosis Family history: No known history of mental health or chemical health concerns Past treatment: No known formal treatment attempts Details of most recent treatment: Pt denies historical nor current involvement in mental health services. Other relevant history: Pt reports he lives with his children, the mother of his children, and her other children. Pt reports they live in a townhouse. Pt denies history of trauma, legal issues, or involvement. Collateral Information Is there collateral information: No (Pt reports he has no supports) Collateral information name, relationship, phone number: What happened today: What is different about patient's functioning: Concern about alcohol/drug use: What do you think the patient needs: Has patient made comments about wanting to kill themselves/others: If d/c is recommended, can they take part in safety/aftercare planning: Additional collateral information: Risk Assessment Stonewall Suicide Severity Rating Scale Full Clinical Version: Suicidal Ideation Q1 Wish to be (Lifetime): Yes Q2 Non-Specific Active Suicidal Thoughts (Lifetime): Yes 3. Active Suicidal Ideation with any Methods (Not Plan) Without Intent to Act (Lifetime): Yes Q4 Active Suicidal Ideation with Some Intent to Act, Without Specific Plan (Lifetime): Yes Q5 Active Suicidal Ideation with Specific Plan and Intent (Lifetime): No Q6 Suicide Behavior (Lifetime): no Suicidal Behavior (Lifetime) Actual Attempt (Lifetime): No Has subject engaged in non-suicidal self-injurious behavior? (Lifetime): Yes Interrupted Attempts (Lifetime): No Aborted or Self-Interrupted Attempt (Lifetime): No Preparatory Acts or Behavior (Lifetime): No Stonewall Suicide Severity Rating Scale Recent: Suicidal Ideation (Recent) Q1 Wished to be (Past Month): yes Q2 Suicidal Thoughts (Past Month): yes Q3 Suicidal Thought Method: yes Q4 Suicidal Intent without Specific Plan: yes Q5 Suicide Intent with Specific Plan: no Within the Past 3 Months?: no Level of Risk per Screen: high risk Intensity of Ideation (Recent) Most Severe Ideation Rating (Past 1 Month): 3 Frequency (Past 1 Month): 2-5 times in week Duration (Past 1 Month): 1-4 hours/a lot of time Controllability (Past 1 Month): Can control thoughts with some difficulty Deterrents (Past 1 Month): Uncertain that deterrents stopped you Reasons for Ideation (Past 1 Month): Mostly to end or stop the pain (You couldn't go on living withthe pain or how you were feeling) Suicidal Behavior (Recent) Actual Attempt (Past 3 Months): No Has subject engaged in non-suicidal self-injurious behavior? (Past 3 Months): Yes Interrupted Attempts (Past 3 Months): No Aborted or Self-Interrupted Attempt (Past 3 Months): No Preparatory Acts or Behavior (Past 3 Months): No Environmental or Psychosocial Events: excessive debt, poor finances, other life stressors, helplessness/hopelessness, challenging interpersonal relationships, neither working nor attending school, social isolation Protective Factors: Protective Factors: help seeking Does the patient have thoughts of harming others? Feels Like Hurting Others: no Previous Attempt to Hurt Others: no Is the patient engaging in sexually inappropriate behavior?: no Is the patient engaging in sexually inappropriate behavior? no Mental Status Exam Affect: Labile Appearance: Appropriate Attention Span/Concentration: Attentive Eye Contact: Engaged Fund of Knowledge: Appropriate Language /Speech Content: Fluent Language /Speech Volume: Normal Language /Speech Rate/Productions: Normal Recent Memory: Poor Remote Memory: Poor Mood: Anxious Orientation to Person: Yes Orientation to Place: Yes Orientation to Time of Day: Yes Orientation to Date: No (Pt believes it is 2007) Situation (Do they understand why they are here?): Yes Psychomotor Behavior: Normal Thought Content: Hallucinations, Suicidal Thought Form: Intact Mini-Cog Assessment Number of Words Recalled: Clock-Drawing Test: Three Item Recall: Mini-Cog Total Score: Medication Psychotropic medications: Medication Orders - Psychiatric (From admission, onward) Start Dose/Rate Route Frequency Ordered Stop 10/15/23 2312 OLANZapine zydis (zyPREXA) ODT tab 10 mg 10 mg Oral 2 TIMES DAILY PRN 10/15/23 2313 10/15/23 2312 LORazepam (ATIVAN) tablet 1 mg 1 mg Oral EVERY 8 HOURS PRN 10/15/23 2313 Current Care Team Patient Care Team: [facility] as PCP - General (Internal Medicine) Diagnosis Patient Active Problem List Diagnosis Code Adjustment disorder with disturbance 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, predominantly inattentive type F90.0 Major depressive disorder, recurrent episode, moderate (H) F33.1 Schizoaffective disorder, bipolar type (H) F25.0 Nicotine dependence F17.200 Methamphetamine abuse (H) F15.10 OCD (obsessive compulsive disorder) F42.9 Alcohol dependence (H) F10.20 Affective disorder, psychotic (H24) F39 Hyperlipidemia with target LDL less than 130 E78.5 Antisocial personality disorder (H) F60.2 Primary Problem This Admission Active Hospital Problems *Affective disorder, psychotic (H24) F39 Clinical Summary and Substantiation of Recommendations It is the recommendation of this clinician that pt admit to IP for safety and stabilization. Pt displays the following risk factors that support IP admission: Pt presents with worsening psychological distress, including commanding auditory hallucinations telling him to kill himself, visaul hallucinations of animal- human hybrids, and suicide ideation with no plans, however, reports access to weapons in his community. Pt appears to be disoriented and believes it is 2008. Although he denies mental health or MOHAN history, pt appears to be a poor historian based upon chart review. Per provider, pt recently burned himself as a form of self-harm. Pt does not feel safe with himself. Pt is unable to engage in safety planning to mitigate risk level in a non-secure setting. Lower levels of care are not sufficient. Due to this IP is the least restrictive option of care for pt. Pt should remain inIP until deemed safe to return to the community and engage in OP MH supports. Pt would benefit fromoutpatient therapy and medication management appointments upon discahrge. Pt would benefit from IRTS referral, if pt desires. Imminent risk of harm: Suicidal Behavior Severe psychiatric, behavioral or other comorbid conditions are appropriate for management at inpatient mental health as indicated by at least one of the following: Psychiatric Symptoms, Impaired impulse control, judgement, or insight Severe dysfunction in daily living is present as indicated by at least one of the following: Complete withdrawal from all social interactions, Other evidence of severe dysfunction Situation and expectations are appropriate for inpatient care: Biopsychosocial stresses potentiallycontributing to clinical presentation (co morbidities) have been assessed and are absent or manageable at proposed level of care Inpatient mental health services are necessary to meet patient needs and at least one of the following: Specific condition related to admission diagnosis is present and judged likely to further improve at proposed level of care, Specific condition related to admission diagnosis is present and judged likely to deteriorate in absence of treatment at proposed level of care Patient coping skills attempted to reduce the crisis: none Disposition Recommended disposition: Inpatient Mental Health Reviewed case and recommendations with attending provider. Attending Name: Dr. Jordan Attending concurs with disposition: yes Patient and/or validated legal guardian concurs with disposition: yes Final disposition: inpatient mental health Legal status on admission: Voluntary/Patient has signed consent for treatment Assessment Details Total duration spent with the patient: 16 min CPT code(s) utilized: Non-Billable CARINA Galicia, Psychotherapist [facility] - Triage & Transition Services Callback: [phone] documented in this encounter ED Notes * Renu Moreno RN - 10/16/2023 2:08 PM CDT Pt left via EMS transport. Pt VSS and reports less pain in LB and hand. Pt given another lunch tray and belongings returned to pt/ EMS. * Renu Moreno RN - 10/16/2023 12:47 PM CDT Pt speaking with DEC * Renu Moreno RN - 10/16/2023 8:49 AM CDT Pt amb to bathroom Breakfast delivered. Pt took a few bites and laid back down. Pt reporting chronic LBP. Asking for something for pain- MD notified. * Renu Moreno RN - 10/16/2023 8:37 AM CDT Pt amb to bathroom- Breakfast tray given * Ana Adkins RN - 10/16/2023 6:31 AM CDT MAKEUP EDITOR Mental Health Handoff Note Voluntary Does patient require 1:1? No Hold and rights been given and documented for patient: No Is the patient in scrubs? Yes Has the patient been searched? Yes Is the 15 minute observation tool up to date? Yes Was patient issued a welcome folder? Yes Room check completed this shift: Yes PSS3 and Stonewall Assessment/Reassessment this shift: C-SSRS (Stonewall) Date and Time Q1 Wished to be (Past Month) Q2 Suicidal Thoughts (Past Month) Q3 Suicidal Thought Method Q4 Suicidal Intent without Specific Plan Q5 Suicide Intent with Specific Plan Q6 Suicide Behavior (Lifetime) Within the Past 3 Months? Level of Risk per Screen Level of Risk per Screen User 10/15/23 9071 1-->yes 1-->yes 1-->yes 1-->yes 0-->no -- 0-->no -- high risk LF 10/15/23 4698 -- -- -- -- -- 0-->no -- -- -- LF 10/15/232 1-->yes 1-->yes 1-->yes 1-->yes 0-->no 1-->yes 0-->no -- high risk EAD Behavioral status of patient: Green Code 21 called this shift? No Use of restraints/seclusion this shift? No Most recent vital signs: Temp: 98.7 ??F (37.1 ??C) BP: 134/88 Pulse: 75 Resp: 20 SpO2: 100 % O2 Device: None (Room air) Medications: Scheduled medication compliance? No PRN Meds administered this shift? No Medications LORazepam (ATIVAN) tablet 1 mg (has no administration in time range) OLANZapine zydis (zyPREXA) ODT tab 10 mg (has no administration in time range) ADLs Meal Provided this shift? Yes Hygiene items provided? No ADLs completed? Yes Date of last shower: unknown Any significant events this shift? No Any information that would be helpful in caring for this patient? Pt calm and cooperative Family present/updated? No Location of patient's belongings: [facility] office, pt phone in room with pt Critical Care Minutes: Does the patient need critical care minutes documented? No * Rojas Rojas RN - 10/16/2023 2:55 AM CDT MAKEUP EDITOR Mental Health Handoff Note Voluntary Does patient require 1:1? No Hold and rights been given and documented for patient: No Is the patient in scrubs? Yes Has the patient been searched? Yes Is the 15 minute observation tool up to date? Yes Was patient issued a welcome folder? Yes Room check completed this shift: Yes PSS3 and [place]wall Assessment/Reassessment this shift: C-SSRS ([place]wall) Date and Time Q1 Wished to be (Past Month) Q2 Suicidal Thoughts (Past Month) Q3 Suicidal Thought Method Q4 Suicidal Intent without Specific Plan Q5 Suicide Intent with Specific Plan Q6 Suicide Behavior (Lifetime) Within the Past 3 Months? Level of Risk per Screen Level of Risk per Screen User 10/15/23 2359 1-->yes 1-->yes 1-->yes 1-->yes 0-->no -- 0-->no -- high risk LF 10/15/23 2358 -- -- -- -- -- 0-->no -- -- -- LF 10/15/23 1932 1-->yes 1-->yes 1-->yes 1-->yes 0-->no 1-->yes 0-->no -- high risk EAD Behavioral status of patient: Green Code 21 called this shift? No Use of restraints/seclusion this shift? No Most recent vital signs: Temp: 98.7 ??F (37.1 ??C) BP: 134/88 Pulse: 75 Resp: 20 SpO2: 100 % O2 Device: None (Room air) Medications: Scheduled medication compliance? No PRN Meds administered this shift? No Medications LORazepam (ATIVAN) tablet 1 mg (has no administration in time range) OLANZapine zydis (zyPREXA) ODT tab 10 mg (has no administration in time range) ADLs Meal Provided this shift? Yes Hygiene items provided? No ADLs completed? Yes Date of last shower: unknown Any significant events this shift? No Any information that would be helpful in caring for this patient? Pt calm and cooperative Family present/updated? No Location of patient's belongings: [facility] office, pt phone in room with pt Critical Care Minutes: Does the patient need critical care minutes documented? No * Marilin Nugent [facility] - 10/15/2023 11:30 PM CDT IP MH Referral Acuity Rating Score (RARS) LMHP complete at referral to IP MH, with DEC; and, daily while awaiting IP MH placement. Call scoreto PPS. CRITERIA SCORING New 70 HH and Involuntary for IP MH (not adolescent) 0/1 Boarding over 24 hours 0/1 Vulnerable adult at least 55+ with multiple co morbidities; or, Patient age 11 or under 0/1 Suicide ideation without relief of precipitating factors 1/1 Current plan for suicide 0/1 Current plan for homicide 0/1 Imminent risk or actual attempt to seriously harm another without relief of factors precipitating the attempt 1/1 Severe dysfunction in daily living (ex: complete neglect for self care, extreme disruption in vegetative function, extreme deterioration in social interactions) 1/1 Recent (last 2 weeks) or current physical aggression in the ED 0/1 Restraints or seclusion episode in ED 0/1 Verbal aggression, agitation, yelling, etc., while in the ED 0/1 Active psychosis with psychomotor agitation or catatonia 0/1 Need for constant or near constant redirection (from leaving, from others, etc). 0/1 Intrusive or disruptive behaviors 1/ TOTAL Acuity Total Score: 4 * Renu Rudolph RN - 10/15/2023 9:18 PM CDT Patient reported to RN some minor belly cramps both before and after eating a lunch box meal. Patient resting comfortably in bed. * Rojas Rojas RN - 10/15/2023 9:12 PM CDT Pt requested for food. Standard food tray and apple juice given. * Rojas Rojas RN - 10/15/2023 8:11 PM CDT Pt states that patient has been hurting himself over and over again. When asked if there was a reason for self-harm, patient didn't give a definite answer but stated that he feels it is 2007 and he'sin a coma from a muscle relaxer overdose and the hospital is about to take him off life support. Ptdenies SI but endorses self-harm. Pt did have an episode of yelling out WAKE UP. Pt let us know be sonia that he was going to yell. * Rojas Rojas RN - 10/15/2023 7:38 PM CDT Pt given behavior scrubs, wand down by security, and 3 bags of belongings labeled and placed in DECoffice. Pt allowed to have phone unless interfering with care, informed we will have to take it away. Pt verbalized understanding. Pt resting comfortably in bed. Respirations equal and easy. Monitored on camera by security. * Elias Holley RN - 10/15/2023 7:33 PM CDT Bed: ED04 Expected date: Expected time: Means of arrival: Comments: MH only * Monica James RN - 10/15/2023 7:27 PM CDT Patient reports intentionally cutting and burning himself. Small wound to left hand. Patient reports having increased suicidal thoughts without a plan for the last 2 weeks. * Lamont Jordan MD - 10/15/2023 7:23 PM CDT Emergency Department Note History of Present Illness Chief Complaint Self Harm - Deliberate HPI Landon Lerma is a 38 year old [...] any other regular medications for mental health. Independent Historian None Review of External Notes None Past Medical History Medical History and Problem List Past Medical History: Diagnosis Date Abnormal weight gain 09/23/2007 Anxiety Anxiety state, unspecified 12/27/2011 Depressive disorder Polysubstance abuse (H) Psychosis (H) PTSD (post-traumatic stress disorder) Schizoaffective disorder (H) SPRAIN OF HAND NOS 05/01/2007 Medications Soma Physical Exam Patient Vitals for the past 24 hrs: BP Temp Pulse Resp SpO2 Height Weight 10/15/231929 -- 98.7 ??F (37.1 ??C) -- -- -- -- -- 10/15/231927 134/88 -- 75 20 100 % -- -- 10/15/231925 -- -- -- -- -- 1.702 m (5' 7) 86.4 kg (190 lb 7.6 oz) Physical Exam General: Well appearing, nontoxic. Resting comfortably Head: Scalp, face, and head appear normal Eyes: Pupils are equal, round Conjunctivae non-injected and sclerae white ENT: The external nose is normal Pinnae are normal Neck: Normal range of motion There is no rigidity noted Trachea is in the midline CV: Regular rate and rhythm Normal S1/S2, no S3/S4 No murmur or rub. Radial pulses 2+ bilaterally. Resp: Lungs are clear and equal bilaterally There is no tachypnea No increased work of breathing No rales, wheezing, or rhonchi GI: Abdomen is soft, no rigidity or guarding No distension, or mass No tenderness or rebound tenderness MS: Normal muscular tone Symmetric motor strength No lower extremity edema Skin: Healing wound to the dorsum of the left hand without erythema, swelling, induration or purulence. No rash or acute skin lesions noted Neuro: Awake and alert Speech is normal and fluent Moves all extremities spontaneously Psych: Flat affect. Endorses thoughts of self harm. Denies HI. + visual hallucinations and delusions of being in the wrong time, seeing demons. Endorses anxious mood. No psychomotor agitation. Diagnostics Lab Results Labs Ordered and Resulted from Time of ED Arrival to Time of ED Departure URINE DRUG SCREEN PANEL - Normal Result Value Amphetamines Urine Screen Negative Barbituates Urine Screen Negative Benzodiazepine Urine Screen Negative Cannabinoids Urine Screen Negative Cocaine Urine Screen Negative Fentanyl Qual Urine Screen Negative Opiates Urine Screen Negative PCP Urine Screen Negative Imaging No orders to display Independent Interpretation None ED Course Medications Administered Medications - No data to display Procedures Procedures Discussion of Management None Social Determinants of Health adding to complexity of care None ED Course ED Course as of 10/15/232201October 15, 2023 2100 I obtained history and examined the patient as noted above. Medical Decision Making / Diagnosis [facility] Diagnoses: None MIPS None MDM Landon Lerma is a 38 year old male who presents to the emergency department for mental health evaluation. Patient reports increasing thoughts of self-harm and paranoid delusions with reports of visual hallucinations seeing demons. He recently burn to the dorsum of his left hand to harm himself. Burn appears to be healing well without any complication. No evidence for infection. Patient may continue local wound cares, with topical antibiotic ointment and bandage. He denies any substance use complicating his presentation. He is calm and cooperative and voluntary at this time. No physicalhealth concerns. Patient not currently on any psychotropic medications. Plan is for DEC evaluation to determine need for psychiatry admission. Patient wishes to pursue admission at this time given his worsening symptoms and fear that he may do something else to harm himself. He has overdosed on medications in the past. Patient signed out to my partner Dr. Chavez pending DEC evaluation. Disposition Care of the patient was transferred to my colleague Dr. Chavez pending DEC evaluation. ICD-10 Codes: ICD-10-CM 1. Thoughts of self harm R45.89 2. Partial thickness burn of back of left hand, initial encounter T23.262A 3. Paranoid delusion (H) F22 Scribe Disclosure: I, Christian Bermudez, am serving as a scribe at 8:00 PM on 10/15/2023 to document services personally performed by Lamont Jordan MD, based on my observations and the provider's statements to me. [employer] Lamont Jordan MD 10/15/232201 * Jacob Shah MD - 10/15/2023 7:23 PM CDT This patient was taken in signout. He has remained overall stable without psychiatric or hemodynamic decompensation. He has been accepted for inpatient psychiatric care. Jacob Shah MD 10/16/23 1256 documented in this encounter Miscellaneous Notes * Pharmacy-Admission Medication History - Carol Napoles RP - 10/16/2023 9:37 AM CDT Pharmacist Admission Medication History Admission medication history is complete. The information provided in this note is only as accurateas the sources available at the time of the update. Information Source(s): Patient and CareEverywhere/SureScripts via in-person Pertinent Information: Denied any other RX medications Carisoprodol: Last filled in Mar 2023, pt reports to me he still take as needed. Has filled other muscle relaxants in past, most recently filled methocarbamol 750mg tablets in Jun 2023 #120 tablets. Melatonin: States she usually takes a handful most nights but does use every night. Changes made to PROCESS SERVER medication list: Added: melatonin Deleted: cyclobenzaprine, varenicline Changed: None Medication History Completed By: Carol Napoles, PharmD, [facility] Emergency Medicine Pharmacist [phone] or Hi[employer]ot October 16, 2023 PROCESS SERVER Med List Medication Sig Last Dose carisoprodol (SOMA) 350 MG tablet Take 350 mg by mouth 3 times daily as needed for muscle spasms More than a month at - Melatonin 10 MG TABS tablet Take 10-50 mg by mouth at bedtime Past Week at - * Plan of Care - Marilin Nugent LPCC - 10/16/2023 12:13 AM CDT Landon Lerma October 16, 2023 Plan of Care Hand-off Note Patient Care Path: inpatient mental health Plan for Care: It is the recommendation of this clinician that pt admit to IP MH for safety and stabilization. Pt displays the following risk factors that support IP admission: Pt presents with worsening psychological distress, including commanding auditory hallucinations telling him to kill himself, visaul hallucinations of animal- human hybrids, and suicide ideation with no plans, however, reports access to weapons in his community. Pt appears to be disoriented and believes it is 2007. Although he denies mental health or MOHAN history, pt appears to be a poor historian based upon chart review. Per provider, pt recently burned himself as a form of self-harm. Pt does not feel safe with himself. Pt is unable to engage in safety planning to mitigate risk level in a non-secure setting. Lower levels of care are not sufficient. Due to this IP is the least restrictive option of care for pt. Pt should remain inIP until deemed safe to return to the community and engage in OP MH supports. Pt would benefit fromoutpatient therapy and medication management appointments upon discahrge. Pt would benefit from IRTS referral, if pt desires. Identified Goals and Safety Issues: Stabilize mental health Overview: Pt denies supports. Legal Status: Legal Status at Admission: Voluntary/Patient has signed consent for treatment Psychiatry Consult: no Updated regarding plan of care. CARINA Galicia documented in this encounter Plan of Treatment Not on file documented as of this encounter Procedures Procedure Name Priority Date/Time Associated Diagnosis Comments EXTRA TUBE STAT 10/16/2023 6:22 AM CDT EXTRA RED TOP TUBE STAT 10/16/2023 6: 22 AM CDT EXTRA BLUE TOP TUBE STAT 10/16/2023 6 :22 AM CDT CBC WITH PLATELETS AND DIFFERENTIAL STAT 10/16/2023 6:22 AM CDT CBC WITH PLATELETS & DIFFERENTIAL STAT 10/16/2023 6:22 AM CDT COMPREHENSIVE METABOLIC PANEL STAT 10/16/2023 6:22 AM CDT COVID-19 VIRUS (CORONAVIRUS) BY PCR STAT 10/15/2023 11:22 PM CDT URINE DRUG SCREEN STAT 10/15/2023 7:4 3 PM CDT URINE DRUG SCREEN PANEL STAT 10/15/2023 7:43 PM CDT documented in this encounter Results * Extra Red Top Tube (10/16/2023 6:22 AM CDT) Hold Specimen [facility] 10/16/2023 7:48 AM CDT LABORATORY Blood STRUCTURE OF LEFT UPPER LIMB / Unknown Venipuncture / Unknown 10/16/2023 6:22 AM CDT 10/16/2023 6:36 AM CDT Andrews Chavez MD LAB - BLOOD ORDER TOMMY [facility] [address] Lab (1st floor, no room number) [address] * Extra Blue Top Tube (10/16/2023 6:22 AM CDT) Hold Specimen [facility] 10/16/2023 7:48 AM CDT LABORATORY Blood STRUCTURE OF LEFT UPPER LIMB / Unknown Venipuncture / Unknown 10/16/2023 6:22 AM CDT 10/16/2023 6:36 AM CDT Andrews Chavez MD LAB - BLOOD ORDER TOMMY [facility] [address] Lab (1st floor, no room number) [address] * CBC with platelets and differential (10/16/2023 [...] MD LAB - BLOOD ORDER TOMMY LABORATORY [facility] [address] [facility] Lab (1st floor, no room number) [place] [address] * (ABNORMAL) Comprehensive metabolic panel (10/16/2023 6:22 AM CDT) Sodium 137 135 - 145 mmol/L 10/16/2023 [...] MD LAB - BLOOD ORDER TOMMY LABORATORY [facility] [address] [facility] Lab (1st floor, no room number) [place] [address], [facility] * Asymptomatic COVID-19 Virus (Coronavirus) by PCR Nose (10/15/2023 11:22 PM CDT) SARS CoV2 PCR Negative Negative 10/16/2023 12:03 AM CDT LABORATORY Comment:NEGATIVE: SARS-CoV-2 (COVID-19) RNA not detected, presumed negative. Swab NASAL STRUCTURE / Unknown Non-blood Collection / Unknown 10/15/2023 11:22 PM CDT 10/15/2023 11:30 PM CDT [facility] LABORATORY - 10/16/2023 12:03 AM CDT Testing was performed using the Xpert Xpress SARS-CoV-2 Assay on the [employer]. Additional information about this Emergency [...] COVID-19. This test was validated by the [facility]. This laboratory is certified under the Clinical Laboratory Improvement Amendments (CLIA) as qualified to perform high complexity laboratory testing. Lamont Jordan MD LAB - MICRO GENERAL ORDERABLES [facility] [address] [facility] Lab (1st floor, no room number) [place] [address], [facility] * Urine Drug Screen Panel (10/15/2023 7:43 PM CDT) Pathologist [facility] [place] Amphetamines Urine Screen Negative Screen Negative 10/15/2023 8:05 PM CDT LABORATORY Comment:Cutoff for a negativ e amphetamine is less than 500 ng/mL. Barbituates Urine Screen Negative Screen Negative 10/15/2023 8:05 PM CDT LABORATORY Comment:Cutoff for a negativ e barbiturate is less than 200 ng/mL. Benzodiazepine Urine Screen Negative Screen Negative 10/15/2023 8:05 PM CDT LABORATORY Comment:Cutoff for a negativ e benzodiazepine is less than 100 ng/mL. Cannabinoids Urine Screen Negative Screen Negative 10/15/2023 8:05 PM CDT LABORATORY Comment:Cutoff for a negativ e cannabinoid is less than 50 ng/mL. Cocaine Urine Screen Negative Screen Negative 10/15/2023 8:05 PM CDT LABORATORY Comment:Cutoff for a negativ e cocaine is less than 300 ng/mL. Fentanyl Qual Urine Screen Negative Screen Negative 10/15/2023 8:05 PM CDT LABORATORY Comment:Cutoff for negative fentanyl is less than 5 ng/mL. Opiates Urine Screen Negative Screen Negative 10/15/2023 8:05 PM CDT LABORATORY Comment:Cutoff for a negativ e opiate is less than 300 ng/mL. PCP Urine Screen Negative Screen Negative 10/15/2023 8:05 PM CDT LABORATORY Comment:Cutoff for a negativ e PCP is less than 25 ng/mL. Urine MID-STREAM URINE SPECIMEN / Unknown Non-blood Collection / Unknown 10/15/2023 7:43 PM CDT 10/15/2023 7:45 PM CDT Lamont Jordan MD LAB - URINE ORDERABL ES LABORATORY [facility] [address] [facility], no room number) [place] [address], [facility] documented in this encounter Visit Diagnoses Diagnosis Affective disorder, psychotic (H24)- Primary Unspecified episodic mood disorder Thoughts of self harm Partial thickness burn of back of left hand, initial encounter Paranoid delusion (H) Unspecified paranoid state Major depressive disorder, recurrent episode, moderate (H) Major depressive disorder, recurrent episode, moderate documented in this encounter Administered Medications Inactive Administered Medications - up to 3 most recent administrations Medication Order MAR Action Action Date Dose Rate Site ibuprofen (ADVIL/MOTRIN) tablet 600 mg 600 mg, Oral, ONCE, On Sun10/16/23 at 1300, For 1 dose, Give with food. $Given 10/16/2023 12:58 PM CDT 600 mg LORazepam (ATIVAN) tablet 1 mg 1 mg, Oral, EVERY 8 HOURS PRN, anxiety, Starting on Sun10/15/23 at 2312 $Given 10/16/2023 3:00 AM CDT 1 mg OLANZapine zydis (zyPREXA) ODT tab 10 mg 10 mg, Oral, 2 TIMES DAILY PRN, agitation, associated with psychosis or yunier., Starting on Sun10/15/23 at 2312, Doses should be at least 2 hours apart. With dry hands, peel back foil backing and gently remove tablet. Do not push oral disintegrating tablet through foil backing. Administer immediately on tongue and oral disintegrating tablet dissolves in seconds, then swallow with saliva. Liquid not required. documented in this encounter Active and Recently Administered Medications Times are shown in CDT. Scheduled Medication Order 10/14/2023 10/15/2023 10/16/2023 ibuprofen (ADVIL/MOTRIN) tablet 600 mg (COMPLETED) 600 mg, Oral, ONCE, On Sun10/16/23 at 1300, For 1 dose, Give with food. 1258 ($Given - Provi amie: Renu Moreno RN) PRN Medication Order 10/14/2023 10/15/2023 10/16/2023 LORazepam (ATIVAN) tablet 1 mg 1 mg, Oral, EVERY 8 HOURS PRN, anxiety, Starting on Sun10/15/23 at 2312 0300 ($Given - Provi amie: Ana Adkins RN) OLANZapine zydis (zyPREXA) ODT tab 10 mg 10 mg, Oral, 2 TIMES DAILY PRN, agitation, associated with psychosis or yunier., Starting on Sun10/15/23 at 2312, Doses should be at least 2 hours apart. With dry hands, peel back foil backing and gently remove tablet. Do not push oral disintegrating tablet through foil backing. Administer immediately on tongue and oral disintegrating tablet dissolves in seconds, then swallow with saliva. Liquid not required. documented in this encounter Additional Health Concerns Infection Onset Date Last Indicated Resolved Time MRSA 06/23/2021 06/23/2021 10/16/2023 9:21 AM CDT documented as of this encounter Care Teams Ballast Cleaning Operator Relationship Specialty Start Date End Date [facility] - [address] [address] PCP - General Internal Medicine 10/15/23 documented as of this encounter
--- OUTSIDE RECORDS SUMMARY | 2023-11-01 23:57 | XMS_ITS | Encounter Summary ---
Author Organization [facility] Address [address] [facility] [place] [address] Care Team Providers Care Take Up Supervisor Name Role Phone Avani Flowers Md Primary Care Provider Gene Mcgregor MD Primary Care Provider [phone] No Ref-Primary, Physician Primary Care Provider Leah Dale APRN [facility] Primary Care Provider Meng Conner MD Primary Care Provider [phone] [facility] Primary Care Provide r [facility] Primary Care Provider Encounter Details Date Type Department Care Team (Late st Contact Info) Description 03/12/2012 Telephone [facility] Behavioral Health Intake [address] [place] [id number] Generic, Behavioral Intake, Social History Tobacco Use Types Packs/Day Years Used Date Smoking Tobacco: Every Day Cigarettes 0.5 1 Alcohol Use Standard Drinks/Week Comments Yes 0 (1 standard drink = 0.6 oz pur e alcohol) Not drinking any more Sex and Gender Information Value Date Recorded Sex Assigned at Not on file Gender Identity Not on file Sexual Orientation Not on file documented as of this encounter Miscellaneous Notes * Telephone Encounter - Anupam Irwin - 03/12/2012 6:40 PM CDT Pt presents in fv bec si. B: pt states inc anxiety, depression several wks, stopped meds 1 wk ago. States No dinkey operator to bec but stated to er staff friends stealing from him. 3 inpt admits in past yr, 1x sx att by hanging 1 yr ago. Pt has hx hallucinations and delusions but Denies any recently, dec sleep, panic attacks. A: dx psychotic d/ nos, depresion, anxiety, ptsd. Cooperative, vol. R: admit cancelled, pt d/c home documented in this encounter Plan of Treatment Not on file documented as of this encounter Visit Diagnoses Not on filedocumented in this encounter Additional Health Concerns Infection Onset Date Last Indicated Resolved Time MRSA-Contact Isolation Comment:MRSA: 01-21-02 skin and sputum Infection erroneous 06/06/2021 11 :03 AM DENIAL RESOLUTION SPECIALIST MRSA 06/23/2021 06/23/2021 10/16/2023 9:21 AM CDT documented as of this encounter Care Teams Take Up Supervisor Relationship Specialty Start Date End Date Avani Flowers Md PCP - General 03/07/12 05/29/13 Gene Laws MD [address] [facility] [address] [place] [address] PCP - General Psychiatry 05/30/13 05/30/13 No Ref-Primary, Physician PCP - General 06/23/13 09/19/13 Leah Dale APRN TECHNICAL ADJUSTER PCP - General Nurse Practitioner - Adult Health 09/20/13 01/10/15 Meng Conner MD PCP - General Internal Medicine 12/13/15 07/12/[address] [id number] PCP - General 10/16/22 10/14/[address] [address] PCP - General Internal Medicine 10/15/23 documented as of this encounter
--- OUTSIDE RECORDS SUMMARY | 2023-11-01 23:57 | XMS_ITS | Encounter Summary ---
Author Organization [facility] Address [address] [place] [address] Care Team Providers Care Pet Adoption Counselor Name Role Phone No Ref-Primary, Physician Primary Care Provider Leah Dale APRN ESL INSTRUCTOR Primary Care Provider Meng Conner MD Primary Care Provider [phone] [facility] Primary Care Provide r [facility] Primary Care Provider Reason for Visit * Reason Onset Date Comments MH/CD Inpatient 06/27/2013 Encounter Details Date Type Department Care Team ([facility] st Contact Info) Description 06/27/2013 Telephone [facility] Behavioral Health Intake [address] [place] [address] Generic, Behavioral Intake, MH/CD Inpatient [...] encounter Miscellaneous Notes * Telephone Encounter - Renu Taylor - 06/27/2013 11:45 AM CST Transfer from 3b to 10/maya [address] Dr's order. #10 notified. ETING LEAD documented in this encounter Plan of Treatment Not on file documented as of this encounter Visit Diagnoses Not on filedocumented in this encounter Additional Health Concerns Infection Onset Date Last Indicated Resolved Time MRSA-Contact Isolation Comment:MRSA: 01-21-02 skin and sputum Infection erroneous 06/06/2021 11 :03 AM MARKETING LEAD MRSA 06/23/2021 06/23/2021 10/16/2023 9:21 AM CDT documented as of this encounter Care Teams Pet Adoption Counselor Relationship Specialty Start Date End Date No Ref-Primary, Physician PCP - General 06/23/13 09/19/13 Leah Dale APRN ESL INSTRUCTOR PCP - General Nurse Practitioner - Adult Health 09/20/13 01/10/15 Meng Conner MD PCP - General Internal Medicine 12/13/15 07/12/[address] [id number] PCP - General 10/16/22 10/14/[address] [address] PCP - General Internal Medicine 10/15/23 documented as of this encounter
--- OUTSIDE RECORDS SUMMARY | 2023-11-01 23:57 | XMS_ITS | Clinical Summary ---
Author Organization [employer] Address [place] [address] Care Team Providers Care Gaming Director Name Role Phone Pcp, No Primary Care [...] PANEL AND CHOL/HDL RATIO (09/28/2022 8:27 AM [facility]) [facility] Cholesterol, Total 182 100 - 199 mg/dL 09/30/2022 10:[address] [facility]) Triglycerides 69 0 - 149 mg/dL 09/30/2022 10:[address] [facility] ([facility]) HDL Cholesterol 56 >39 mg/dL 10:[address] [facility] ([facility]) VLDL Cholesterol Markel 13 5 - 40 mg/dL 09/30/2022 10:[address] [facility] ([facility]) LDL Chol Calc ([facility]) 113(H) 0 - 99 mg/dL 09/30/2022 10:[address] [facility] ([facility]) T. Chol/HDL Ratio 3.3 0.0 - 5.0 ratio 09/30/2022 10:[address] [facility] ([facility]) Comment: ?T. Chol/HDL Ratio ?Men ??Women ?1/2 Avg.Risk ??3.4 ?3.3 ?Avg.Risk ??5.0 ?4.4 ? 2X Avg.Risk ??9.6 ?7.1 ? 3X Avg.Risk 23.4 ?? 11.0 Blood BLOOD SPECIMEN / Unknown Venipuncture / Unknown 09/28/2022 8:27 AM CDT 09/28/2022 8:29 AM CDT Narrative [facility] ([facility]) - 09/30/2022 10:09 AM CDT Performed at: ??01 - [address] ??[id number] Fur Nailer: Vin Hensley MD, Phone: ??[phone] Lamont Mccoy MD SEND OUTS Performing Organization Address [facility] de Phone Number [facility] ([facility]) [address] [place] [address], * LC HCV ANTIBODY RFX TO QUANT PCR (09/28/2022 8:27 AM CDT) Pathologist [facility] HCV Ab Non Reactive Non Reactive 09/30/2022 2:[address] [facility] ([facility]) Blood BLOOD SPECIMEN / Unknown Venipuncture / Unknown 09/28/2022 8:27 AM CDT 09/28/2022 8:29 AM CDT Narrative [facility] ([facility]) - 09/30/2022 2:08 PM CDT Performed at: ??01 - [address] ??[id number] Fur Nailer: Vin Hensley MD, Phone: ??[phone] Lamont Mccoy MD LABORATORY Performing Organization Address [facility] Co de Phone Number [facility] ([facility]) [address] [place] [address] * LC HIV-1/O/2, 4TH GENERATION (09/28/2022 8:27 AM CDT) HIV Scr 4th Gen Non Reactive Non Reactive 09/30/2022 12:07 PM CDT [facility] ([facility]) Comment: HIV Negative HIV-1/HIV-2 antibodies and HIV-1 p24 antigen were NOT detected. There is no laboratory evidence of HIV infection. Blood BLOOD SPECIMEN / Unknown Venipuncture / Unknown 09/28/2022 8:27 AM CDT 09/28/2022 8:29 AM CDT Narrative [facility] ([facility]) - 09/30/2022 12:07 PM CDT Performed at: ??01 - [facility] [employer] [place] [address] ??[id number] Fur Nailer: Vin Hensley MD, Phone: ??[phone] Lamont Mccoy MD LABORATORY [facility] ([facility]) [address] [place] [address] from Last 3 Months or Most Recently Relevant to Health Maintenance Advance Directives * Full Code (Latest Code Status on File) Date Activated Date Inactivated Comments 01/08/2015 2:10 AM 01/11/2015 4:08 PM Question Answer Comments Code Status Discussion: Not Discussed * Full Code Date Activated Date Inactivated Comments 06/10/2011 10:53 PM 06/13/2011 3:00 PM Care Teams Gaming Director Relationship Specialty Start Date End Date Pcp, No . PCP - General 06/15/13
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
--- OUTSIDE RECORDS SUMMARY | 2023-11-01 23:57 | XMS_ITS | Encounter Summary ---
Author Organization [facility] Address [address] [facility] [place] [address] Care Team Providers Care Center Medical Director Name Role Phone Avani Flowers Md Primary Care Provider Gene Mcgregor MD Primary Care Provider [phone] No Ref-Primary, Physician Primary Care Provider Leah Dale APRN [facility] Primary Care Provider Meng Conner MD Primary Care Provider [phone] [facility] Primary Care Provide r [facility] Primary Care Provider Reason for Visit * Reason Comments Other Encounter Details Date Type Department Care Team ([facility] st Contact Info) Description 03/01/2012 Telephone [facility] Behavioral Health Intake [address] [place] [address] Generic, Behavioral IntakeMD Social History Tobacco Use Types Packs/Day Years [...] encounter Miscellaneous Notes * Telephone Encounter - Saurabh Rocha - 03/04/2012 9:49 AM CDT Message copied by SAURABH ROCHA on SunMar 04, 2012 9:49 AM ------ Message from: ANT DOUGHERTY Created: SunMar 04, 2012 9:34 AM Regarding: SWITCH IN SCHEDULES ADULT DAY [place] WAS IN 3A AND NOW GOING TO DHEERAJ 3C WILL GO M, T, TH DR. MIMS * Telephone Encounter - Prerna Cartwright - 03/01/2012 2:37 PM CDT Message copied by PRERNA CARTWRIGHT on SunMar 01, 2012 2:37 PM ------ Message from: TRAVIS COLLADO Created: SunMar 01, 2012 2:06 PM Effective Sunday--switch ADTx pt from 3A track to the 3C track, M, T, Th documented in this encounter Plan of Treatment Not on file documented as of this encounter Visit Diagnoses Not on filedocumented in this encounter Additional Health Concerns Infection Onset Date Last Indicated Resolved Time MRSA-Contact Isolation Comment:MRSA: 01-21-02 skin and sputum Infection erroneous 06/06/2021 11 :03 AM 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 MRSA 06/23/2021 06/23/2021 10/16/2023 9:21 AM CDT documented as of this encounter Care Teams Center Medical Director Relationship Specialty Start Date End Date Avani Flowers Md PCP - General 03/07/12 05/29/13 Geen Laws MD [address] [facility] [address] [place] [address] PCP - General Psychiatry 05/30/13 05/30/13 No Ref-Primary, Physician PCP - General 06/23/13 09/19/13 Leah Dale APRN CNP PCP - General Nurse Practitioner - Adult Health 09/20/13 01/10/15 Meng Conner MD PCP - General Internal Medicine 12/13/15 07/12/17 [facility], [facility] [place] [address] [place] [address] PCP - General 10/16/22 10/14/23 [facility] - [address] [address] PCP - General Internal Medicine 10/15/23 documented as of this encounter
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
[2023-11-02 00:02] VITALS: BP 110/70; PULSE 89; RESP 18; TEMP 36.8
[2023-11-02 00:35] LABS: Chlamydia DNA Amplified* NOT DETECTED (No Detected); GC DNA Amplified* NOT DETECTED (No Detected)
== END 2023-11-02 00:02 | disposition home or self-care (01) ==
LOC: ED 23:54
PROVIDERS: Emergency Provider Student in an Organized Health Care Education/Training Program
DX: K52.9 Noninfective gastroenteritis and colitis, unspecified (principal); A74.9 Chlamydial infection, unspecified
CPT/HCPCS: 36415; 74177; 80053; 81001; 85025; 87086; 87491; 87591; 94761; 96372; 99283; 99284; A9270; J0696; Q9967

== ENCOUNTER 2024-10-06 00:11 | Emergency (ER) | payer MEDICARE, SELFPAY ==
[2024-10-06 00:24] VITALS: BP 129/92; PULSE 85; TEMP 37.2; O2SAT 94; BMI 33.5
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
--- OUTSIDE RECORDS SUMMARY | 2024-10-06 00:37 | XMS_ITS | Encounter Summary ---
Author Organization [place] Address [address] [place] [address] Care Team Providers Care Client Application Support Engineer Name Role Phone [facility] Primary Care Provider Encounter Details Date Type Department Care Team (Late st Contact Info) Description 01/08/2024 [facility] [address] 4th [place] [address] Millie Dennis Social History Tobacco Use Types Packs/Day Years Used Date Smoking Tobacco: Former Cigarettes 0.3 1 Smokeless Tobacco: Former Quit: 09/02/2013 Comments:e cig Alcohol Use Standard Drinks/Week Comments No 0 (1 standard drink = 0.6 oz pur e alcohol) AUDIT-C Answer Date Recorded Q1: How often do you have a drink containing alcohol? Never 11/20/2023 Q2: How many drinks containi ng alcohol do you have on a typical day when you are drinking? Patient does not drink Q3: How often do you have si x or more drinks on one occasion? 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
--- OUTSIDE RECORDS SUMMARY | 2024-10-06 00:37 | XMS_ITS | Encounter Summary ---
Author Organization [place] Address [address] [place] [address] Care Team Providers Care Mission Commander Name Role Phone Avani Flowers Md Primary Care Provider Gene Mcgregor MD Primary Care Provider [phone] No Ref-Primary, Physician Primary Care Provider Leah Dale APRN CORPORATE COMMUNICATIONS ASSOCIATE Primary Care Provider Meng Conner MD Primary Care Provider [phone] [facility] Primary Care Provide r [facility] Primary Care Provider Encounter Details Date Type Department Care Team (Late st Contact Info) Description 11/17/2009 [place] [address] [place] [address] Meng Conner MD XXX RESIGNED XXX [address] [place] [address] [facility] SUMMARY Social History Tobacco Use Types Packs/Day Years Used Date Smoking Tobacco: Former Cigarettes 0.3 1 Smokeless Tobacco: Former Quit: 09/02/2013 Comments:e cig Alcohol Use Standard Drinks/Week Comments No 0 (1 standard drink = 0.6 oz pur e alcohol) Sex and Gender Information Value Date Recorded Sex Assigned at Not on file 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 Gender Identity Not on file Sexual Orientation Not on file documented as of this encounter Plan of Treatment Not on file documented as of this encounter Visit Diagnoses Diagnosis [facility]- Primary documented in this encounter Additional Health Concerns Infection Onset Date Last Indicated Resolved Time MRSA-Contact Isolation Comment:MRSA: 01-21-02 skin and sputum Infection erroneous 06/06/2021 11 :03 AM FIREWALL SECURITY ENGINEER MRSA 06/23/2021 06/23/2021 10/16/2023 9:21 AM CDT COVID-19 05/10/2024 05/10/2024 05/21/2024 11:4 1 PM FIREWALL SECURITY ENGINEER documented as of this encounter Care Teams Mission Commander Relationship Specialty Start Date End Date Avani Flowers Md PCP - General 03/07/12 05/29/13 Gene Laws MD [address] [facility] [address] [place], [place] [id number] PCP - General Psychiatry 05/30/13 05/30/13 No Ref-Primary, Physician PCP - General 06/23/13 09/19/13 Leah Dale APRN CORPORATE COMMUNICATIONS ASSOCIATE PCP - General Nurse Practitioner - Adult Health 09/20/13 01/10/15 Meng Conner MD PCP - General Internal Medicine 12/13/15 07/12/[address] [address] PCP - General 10/16/22 10/14/[address] [id number] PCP - General Internal Medicine 10/15/23 documented as of this encounter
--- OUTSIDE RECORDS SUMMARY | 2024-10-06 00:37 | XMS_ITS | Encounter Summary ---
Author Organization [place] Address [address] [place] [address]. [place] [address] Care Team Providers Care Bus And Trolley Dispatcher Name Role Phone No Ref-Primary, Physician Primary Care Provider Leah Dale APRN, CNP Primary Care Provider Meng Conner MD Primary Care Provider [phone] [facility] Primary Care Provide r 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 Pt is vol. R: admit st 10/ Dr Hogan ER HAND documented in this encounter Plan of Treatment Not on file documented as of this encounter Visit Diagnoses Not on filedocumented in this encounter Additional Health Concerns Infection Onset Date Last Indicated Resolved Time MRSA-Contact Isolation Comment:MRSA: 01-21-02 skin and sputum Infection erroneous 06/06/2021 11 :03 AM BASTER HAND MRSA 06/23/2021 06/23/2021 10/16/2023 9:21 AM CDT COVID-19 05/10/2024 05/10/2024 05/21/2024 11:4 1 PM BASTER HAND documented as of this encounter Care Teams Bus And Trolley Dispatcher Relationship Specialty Start Date End Date No Ref-Primary, Physician PCP - General 06/23/13 09/19/13 Leah Dale APRN ARTISTIC DIRECTOR PCP - General Nurse Practitioner - Adult Health 09/20/13 01/10/15 Meng Conner MD PCP - General Internal Medicine 12/13/15 07/12/[address] [address] PCP - General 10/16/22 10/14/[address] [address] PCP - General Internal Medicine 10/15/23 documented as of this encounter
--- OUTSIDE RECORDS SUMMARY | 2024-10-06 00:38 | XMS_ITS | Encounter Summary ---
Author Organization [place] Address [address] [place] [address]. [place] [address] Care Team Providers Care Revenue Accountant Name Role Phone [facility] Primary Care Provider Reason for Visit * Reason Onset Date Comments MH/CD Inpatient 07/08/2024 Encounter Details Date Type Department Care Team ([facility] st Contact Info) Description 07/08/2024 Telephone [facility] Behavioral Health Intake [address] [place] [address] Generic, Behavioral Intake, MH/CD Inpatient [...] Answer Date Recorded Do you have housing? 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 [facility] is posting 0 beds. [facility] is posting 7 beds. [phone]: Per RN @ 12:19PM, they are already reviewing otherreferrals. She suggests calling back after 5PM [facility] is posting 0 beds. Negative covid required. [facility] is posting 0 beds. Neg covid. No high school/Kemi-psych. [phone]. Per Brittany @ 12:20PM, they are full today but Intake can call back tomorrow [facility] is posting 0 beds. [phone]. [facility] is posting 0 beds. [phone]. [facility] is posting 6 beds. (Ages 18-35) Negative covid, no aggression, physical or sexual assault, violence hx or drug abuse, or psychosis. [phone]; Per Nav @ 3:15PM, no YA beds [facility] is posting 0 beds. [facility] is posting 0 beds [phone]. Per Yoselin @ 12:22PM, [facility] is at full capacity until tomorrow after 8AM TAL MARKETING STRATEGIST documented in this encounter Plan of Treatment Not on file documented as of this encounter Visit Diagnoses Not on filedocumented in this encounter Care Teams Revenue Accountant Relationship Specialty Start Date End Date Clinic - [address] [address] PCP - General Internal Medicine 10/15/23 documented as of this encounter
--- OUTSIDE RECORDS SUMMARY | 2024-10-06 00:38 | XMS_ITS ---
Author Organization [facility] Address [address] [place] [address] Care Team Providers Care Tire Duster Name Role Phone PlacidoFranco mosquera Unavailable [phone] Alonzo Gannon Unavailable [phone] REASON FOR VISIT Dx Code Tramadol Medications Medication SIG (Take, Route, Frequency, Duration) Notes Start Date End Date Status traMADol HCl 50 MG 1 tablet as needed Orally TID for 7 days M54.16 Lumbar Radiculopathy 04/19/2023 Active Encounters Encounter Location Date Provider Diagnosis [id number] - [facility] [address] [facility] [address] [place] [address] 04/19/2023 Alonzo Gannon Plan Of Treatment Medication Medication Name Sig Start Date Stop Date Notes traMADol HCl 50 MG 1 tablet as needed Orally TID for 7 days 04/19/2023 M54.16 Lumbar Radiculopathy Progress Notes * Landon LOVE SDOB:1984 (38 yo M)Acc No.[id number]:04/19/2023 Patient: Landon Fallon :1985 A ge:38 Y S ex:Male Address:[address] [place] [address] * Refills Start traMADol HCl Tablet, 50 MG, Orally, 21 Tablet, 1 tablet as needed, TID, 7 days, Refills=0 * true * Date: Generated for Printi ng/Faxing/eTransmitting on: 0 10/06/2024 12:37 AM CDT
--- OUTSIDE RECORDS SUMMARY | 2024-10-06 00:38 | XMS_ITS | Encounter Summary ---
Author Organization [facility] Address [address] [place] [address]. [place] [address] Care Team Providers Care Dried Fruit Washer Name Role Phone Meng Conner MD Primary Care Provider [phone] [facility] Primary Care Provide r [facility] Primary Care Provider Reason for Visit * Reason Onset Date Comments MH/CD Inpatient 08/23/2015 Encounter Details Date Type Department Care Team ([facility] Contact Info) Description 08/23/2015 Telephone [facility] Behavioral Health Intake [address] [place] [phone] Generic, Behavioral Intake, MH/CD Inpatient Social History Tobacco Use Types Packs/Day Years Used Date Smoking Tobacco: Every Day Cigarettes 0.5 1 Smokeless Tobacco: Former Quit: 09/02/2013 Comments:e cig Alcohol Use Standard Drinks/Week Comments Yes 0 (1 standard drink = 0.6 oz pur e alcohol) occationally AUDIT-C Answer Date Recorded Q1: How often [...] in an abandoned building, in an overnight retirement, or couch-surfing.) No 07/09/2024 Are you worried [...] on file 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 Pt states he is receiving binary and universal codes that he should not bereceiving. Pt thinks they are being projected into his eye and has that he has decodements on hisUSB at home. B: Pt has hx of inpt at [place] with dx schizoaffective and personality d/o. Hx [...] pt left the ER declined admission to [facility] documented in this encounter Plan of Treatment Not on file documented as of this encounter Visit Diagnoses Not on filedocumented in this encounter Additional Health Concerns Infection Onset Date Last Indicated Resolved Time MRSA-Contact Isolation Comment:MRSA: 8-20-02 skin and sputum Infection erroneous 06/06/2021 11 :03 AM FRONT END SOFTWARE ENGINEER MRSA 06/23/2021 06/23/2021 10/16/2023 9:21 AM CDT COVID-19 05/10/2024 05/10/2024 05/21/2024 11:4 1 PM FRONT END SOFTWARE ENGINEER documented as of this encounter Care Teams Dried Fruit Washer Relationship Specialty Start Date End Date Meng Conner MD PCP - General Internal Medicine 12/13/15 07/12/[address] [address] PCP - General 10/16/22 10/14/[address] [address] PCP - General Internal Medicine 10/15/23 documented as of this encounter
--- OUTSIDE RECORDS SUMMARY | 2024-10-06 00:38 | XMS_ITS | Encounter Summary ---
Author Organization [place] Address [address] [place] [address]. [place] [address] Care Team Providers Care Rock Crusher Operator Name Role Phone No Ref-Primary, Physician Primary Care Provider Leah Dale APRN, CNP Primary Care Provider Meng Conner MD Primary Care Provider [phone] [facility] Primary Care Provide r [facility] Primary Care Provider Reason for Visit * Reason Onset Date Comments MH/CD Inpatient 08/20/2013 Encounter Details Date Type Department Care Team ([facility] st Contact Info) Description 08/20/2013 Telephone [facility] Behavioral Health Intake [address] [place] [address] Generic, Behavioral Intake, MH/CD Inpatient [...] in an abandoned building, in an overnight skilled nursing, or couch-surfing.) No 07/09/2024 Are you worried [...] on file Legal Sex Male 3:10 AM DOUGH PANNER Gender Identity Not on file Sexual Orientation [...] 08/20/2013 3:09 PM CDT [facility] psychosis. B: pt worsening [...] sputum Infection erroneous 06/06/2021 11 :03 AM DOUGH PANNER MRSA 06/23/2021 06/23/2021 10/16/2023 9:21 AM CDT COVID-19 05/10/2024 05/10/2024 05/21/2024 11:4 1 PM DOUGH PANNER documented as of this encounter Care Teams Rock Crusher Operator Relationship Specialty Start Date End Date No Ref-Primary, Physician PCP - General 06/23/13 09/19/13 Leah Dale APRN COLLIERY CLERK PCP - General Nurse Practitioner - Adult Health 09/20/13 01/10/15 Meng Conner MD PCP - General Internal Medicine 12/13/15 07/12/[address] [address] PCP - General 10/16/22 10/14/[address] [address] PCP - General Internal Medicine 10/15/23 documented as of this encounter
--- OUTSIDE RECORDS SUMMARY | 2024-10-06 00:38 | XMS_ITS ---
Author Organization [facility] Address [address] [place] [address] Care Team Providers Care Wellness Coach Name Role Phone Placido Franco Unavailable [phone] Alonzo Gannon Unavailable [phone] REASON FOR VISIT Pain medication Medications Medication SIG (Take, Route, Frequency, Duration) Notes Start Date End Date Status traMADol HCl 50 MG 1 tablet as needed Orally TID for 7 days Lumbar Radiculopathy M54.16 05/08/2023 Active Diclofenac Sodium 75 MG 1 tablet as needed Orally Twice a day for 30 days Active Encounters Encounter Location Date Provider Diagnosis [id number] - [facility] [address] [facility] [place] [address] 05/08/2023 Alonzo Gannon Lumbar radiculopathy M54.16 Assessments Encounter Date Diagnosis (ICD Code) Assessment Notes Treat ment Notes Treatment Clinical Notes 05/08/2023 Lumbar radiculopathy (ICD-10 - M54.16) Plan Of Treatment Medication Medication Name Sig Start Date Stop Date Notes traMADol HCl 50 MG 1 tablet as needed Orally TID for 7 days 05/08/2023 Lumbar Radiculopathy M54.16 Diclofenac Sodium 75 MG 1 tablet as needed Orally Twice a day for 30 days Progress Notes * Landon LOVE SDOB:1984 (38 yo M)Acc No.[id number]:05/08/2023 Patient: Landon Fallon :1985 A ge:38 Y S ex:Male Address:[address] [place] [address] * Refills Refill traMADol HCl Tablet, 50 MG, Orally, 21 Tablet, 1 tablet as needed, TID, 7 days, Refills=0 Refill Diclofenac Sodium Tablet Delayed Release, 75 MG, Orally, 60 Tablet, 1 tablet as needed, Twice a day, 30 days * true * Date: Generated for Terry owusu/Lorrie/Christal on: 0 10/06/2024 12:38 AM CDT
--- OUTSIDE RECORDS SUMMARY | 2024-10-06 00:38 | XMS_ITS | Clinical Summary ---
Author Organization [facility] Address [address] [place] [id number] Care Team Providers Care Senior Service Technician Name Role Phone [facility] Primary Care Provider Allergies Active Allergy Reactions Criticality Noted Date Comments Cefazolin 12/12/2015 Medications * This document contains information received from the source organization and may not represent a complete record from that organization. MELATONIN PO Take by mouth nightly as needed. Active QUEtiapine (SEROQUEL) 100 MG tabletIndicatio ns:Schizoaffect mary disorder, bipolar type (H) Take 1 tablet (100 mg) by mouth at bedtime. 30 tablet 1 07/16/2024 Active QUEtiapine (SEROQUEL) 50 MG tabletIndicatio ns:Schizoaffect mary disorder, bipolar type (H) Take 1 tablet (50 mg) by mouth 2 times daily. 60 tablet 1 07/16/2024 Active QUEtiapine (SEROQUEL) 50 MG tabletIndicatio ns:Schizoaffect mary disorder, bipolar type (H) Take 1 tablet (50 mg) by mouth 3 times daily as needed (psychosis). 60 tablet 1 07/16/2024 Active buPROPion (WELLBUTRIN XL) 150 MG 24 hr tabletIndicatio ns:Schizoaffect mary disorder, bipolar type (H) Take 1 tablet (150 mg) by mouth daily. 30 tablet 1 07/17/2024 Active hydrOXYzine HCl (ATARAX) 25 MG tabletIndicatio ns:Affective disorder, psychotic Take 1 tablet (25 mg) by mouth every 4 hours as needed for anxiety. 60 tablet 1 07/16/2024 Active melatonin 10 MG TABS tabletIndicatio ns:Other insomnia Take 1 tablet (10 mg) by mouth nightly as needed for sleep (use first for sleep). 30 tablet 07/16/2024 Active Active Problems Problem Noted Date Diagnosed Date Auditory hallucinations 07/09/2024 Suicide ideation 07/09/2024 Schizoaffective disorder, unspecified type 07/09 Psychosis 10/16/2023 Antisocial personality disorder 09/21/2013 Hyperlipidemia with target LDL less than 130 02/2014 Overview (04/05/2015): Diagnosis updated by automated process. Provider to review and confirm. 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 Behavioral Health Intake [address] [place] [address] Generic Behavioral IntakeMD MH/CD Inpatient 07/09/2024 Telephone [facility] Health Intake [address] [place] [phone] Generic Behavioral Intake, MH/CD Inpatient 07/06/2024 11:26 PM OFFICE MAIL CLERK - 07/16/2024 1:48 PM OFFICE MAIL CLERK Hospital Encounter [facility] [address] [place] [phone] Dee Zuniga MD Christianson, MD Nilsa Gomez, MD Michael Gupta David, MD Kholomyansky, Jonathan Mclaughlin MD Cigarette nicotine dependence with nicotine-induced disorder (Primary Dx); Schizoaffective disorder, unspecified type (H); Auditory hallucinations; Suicide ideation; Hyperlipidemia with target LDL less than 130; Affective disorder, psychotic; Other insomnia; Schizoaffective disorder, bipolar type (H) Discharge Disposition: Home or Self Care from Last 3 Months Immunizations Name Administration Dates Next Due Influenza (IIV3) PF 04/11/2007 Influenza Vaccine >6 months,quad, PF 08/22/2013 Pneumococcal 23 valent 08/22/2013 TDAP (Adacel,Boostrix) 11/15/2023 TDAP Vaccine (Adacel) 02/13/2007 Family History Medical History Relation Comments Family History Negative Brother 1 1/2//2/ 2 Neurologic Disorder Brother 2 muscular dis trophy ramona Family History Negative Daughter Neurologic Disorder Father 44y o MS -suicide Heart Disease Maternal Grandfather 79 yo Family History Negative Maternal Grandmother dec eased 65yo liver (non-drinker) Crohn's Disease Mother Family History Negative Sister 1/2 Relation Status [...] in an abandoned building, in an overnight senior care, or couch-surfing.) No 07/09/2024 Are you worried [...] on file Legal Sex Male 3:10 AM OFFICE MAIL CLERK Gender Identity Not on file Sexual Orientation Not on file Last Filed Vital Signs Vital Sign Reading Time Taken Comments Blood Pressure 136/82 07/15/2024 5:41 PM OFFICE MAIL CLERK Pulse 76 07/15/2024 5:41 PM OFFICE MAIL CLERK Temperature 36.6 C (97.8 F) 07/16/2024 8:46 AM OFFICE MAIL CLERK Respiratory Rate 16 07/15/2024 5:41 PM OFFICE MAIL CLERK Oxygen Saturation 97% 07/16/2024 8:46 AM OFFICE MAIL CLERK Inhaled Oxygen Concentration - - Weight 99.8 kg (220 lb) 07/15/2024 7:00 AM OFFICE MAIL CLERK Height 172.7 cm (5' 8) 07/09/2024 8:01 PM OFFICE MAIL CLERK Body Mass Index 33.45 07/09/2024 8:01 PM OFFICE MAIL CLERK Plan of Treatment Health Maintenance Due Date Last Done Comments ADVANCE CARE PLANNING 1985 ANNUAL REVIEW OF HM ORDERS 1985 HEPATITIS A IMMUNIZATION (1 of 2 - Risk 2-dose series) 2002 HEPATITIS B IMMUNIZATION (1 of 3 - 19+ 3-dose series) 2002 Pneumococcal Vaccine: Pediatrics (0 to 5 Years) and At-Risk Patients (6 to 49 Years) (2 of 2 - PCV) 08/22/2014 08/22/2013 HPV IMMUNIZATION (2 - 3-dose SCDM series) 07/06/2022 06/08/2022 MEDICARE ANNUAL WELLNESS VISIT 09/29/2023 09/28/2022 COVID-19 Vaccine ( season) 2024 INFLUENZA VACCINE (Season Ended) 2025 04/29/2022, 03/14/2015, 08/22/2013, Additional history exists LIPID 07/10/2025 07/10/2024, 10/18/2023 DIABETES SCREENING 07/10/2027 07/10/2024, 0 07/10/2024, 11/15/2023, Additional history exists ZOSTER IMMUNIZATION (1 of 2) 2033 DTAP/TDAP/TD IMMUNIZATION (4 - Td or Tdap) 11/14/2033 11/15/2023, 02/22/2015, 02/13/2007 HEPATITIS C SCREENING Completed 09/28/2022, 014 HIV SCREENING Completed 09/28/2022 MENINGITIS IMMUNIZATION Aged Out No l onger eligible based on patient's age to complete this topic Procedures Procedure Name Priority Date/Time Associated Diagnosis Comments CT HEAD W/O CONTRAST Routine 07/15/2024 9:49 AM OFFICE MAIL CLERK EKG 12-LEAD, TRACING ONLY Routine 07/15/2024 8:38 AM OFFICE MAIL CLERK EKG CARDIAC - HIM SCAN 12:00 AM OFFICE MAIL CLERK XR HAND RIGHT G/E 3 VIEWS Routine 07/14/2024 12:34 PM OFFICE MAIL CLERK XR HAND LEFT G/E 3 VIEWS Routine 07/13/2024 5:29 PM OFFICE MAIL CLERK CBC WITH PLATELETS & DIFFERENTIAL Routine 07/10/2024 7:54 AM OFFICE MAIL CLERK CBC WITH PLATELETS AND DIFFERENTIAL Routine 07/10/2024 7:54 AM OFFICE MAIL CLERK TSH WITH FREE T4 REFLEX Routine 07/10/2024 7:54 AM OFFICE MAIL CLERK LIPID PROFILE Routine 07/10/2024 7:54 AM OFFICE MAIL CLERK HEMOGLOBIN A1C Routine 07/10/2024 7:54 AM OFFICE MAIL CLERK COMPREHENSIVE METABOLIC PANEL Routine 07/10/2024 7:54 AM OFFICE MAIL CLERK HEPATITIS C ANTIBODY Routine 07/03/2013 4:59 PM OFFICE MAIL CLERK from Last 3 Months or Most Recently Relevant to Health Maintenance Results * CT Head w/o contrast* (07/15/2024 9:49 AM OFFICE MAIL CLERK) Anatomical Region Laterality Modality Head, SUBRAD CT NEURO, SUBRA D CT NEURO, UMP CT NEURO, RAD CT Computed Tomography Impressions 07/15/2024 10:37 AM OFFICE MAIL CLERK Impression: No acute intracranial pathology. THERON PAL MD Narrative 07/15/2024 10:37 AM OFFICE MAIL CLERK Head CT without contrast History: obtain prior to ECT. Comparison: 12/12/2015 Technique: Axial images through the brain obtained without intravenous contrast, reviewed in bone, brain, and subdural windows. Findings: There is no evidence of intracranial hemorrhage. There is no mass-effect or midline shift. The ventricles do not appear enlarged out of proportion to the cerebral sulci. The visualized portions of the paranasal sinuses and mastoid air cells are unremarkable on bone windows. Procedure Note Theron Pal MD - 07/15/[address] without contrast History: obtain prior to ECT. Comparison: 12/12/2015 Technique: Axial images through the brain obtained without intravenous contrast, reviewed in bone, brain, and subdural windows. Findings: There is no evidence of intracranial hemorrhage. There is no mass-effect or midline shift. The ventricles do not appear enlarged out of proportion to the cerebral sulci. The visualized portions of the paranasal sinuses and mastoid air cells are unremarkable on bone windows. Impression: No acute intracranial pathology. THERON PAL MD us Myah Cifuentes PA-C IMG CT ORDERABLES Final Re sult * EKG 12-lead, complete (07/15/2024 8:38 AM OFFICE MAIL CLERK) Systolic Blood Pressure mmHg RADIOLOGY RESULTS Diastolic Blood Pressure mmHg RADIOLOGY RESULTS Ventricular Rate 65 BPM RAD IOLOGY RESULTS Atrial Rate 65 BPM RADIOLOG Y RESULTS HI Interval 148 ms RADIOLOG Y RESULTS QRS Duration 104 ms RADIOLO GY RESULTS QT 370 ms RADIOLOGY RESULTS QTc 384 ms RADIOLOGY RESULTS P [place] 58 degrees RADIOLOGY RESULTS R AXIS 69 degrees RADIOLOGY RESULTS T [place] 55 degrees RADIOLOGY RESULTS Interpretation ECG Sinus rhythm When compared with ECG of 30-Nov-2023 10:40, No significant change was found Confirmed by MD LUDMILA, RENE ([id number]) on 07/15/2024 3:41:55 PM RADIOLOGY RESULTS 07/15/2024 8:38 AM OFFICE MAIL CLERK 07/15/2024 3:41 PM OFFICE MAIL CLERK us Myah Cifuentes PA-C ECG ORDERABLES Edited Res ult - Final RADIOLOGY RESULTS * EKG Cardiac - HIM Scan (07/15/2024 12:00 AM OFFICE MAIL CLERK) 07/15/2024 Provider Outside ECG ORDERABLES Final Result * XR Hand Right G/E 3 Views (07/14/2024 12:34 PM OFFICE MAIL CLERK) Anatomical Region Laterality Modality Hand, Wrist Right Radio Fluoroscop y 07/14/2024 12:3 4 PM OFFICE MAIL CLERK Impressions 07/14/2024 3:08 PM OFFICE MAIL CLERK IMPRESSION: The right hand is negative for fracture or dislocation. Narrative 07/14/2024 3:08 PM OFFICE MAIL CLERK EXAM: XR HAND RIGHT G/E 3 VIEWS LOCATION: [facility] DATE: 07/14/2024 INDICATION: right hand pain following trauma from punching wall with right hand, tenderness over MCP of second digit COMPARISON: None. Procedure Note BlockSrikanth MD - 07/14/2024 EXAM: XR HAND RIGHT G/E 3 VIEWS LOCATION: [facility] DATE: 07/14/2024 INDICATION: right hand pain following trauma from punching wall with righthand, tenderness over MCP of second digit COMPARISON: None. IMPRESSION: The right hand is negative for fracture or dislocation. us Myah Cifuentes PA-C IM DIAGNOSTIC IMAGING ORD ERAGELY Final Result * XR Hand Left G/E 3 Views (07/13/2024 5:29 PM OFFICE MAIL CLERK) Anatomical Region Laterality Modality Hand, Wrist Left Computed Radiogr aphy 07/13/2024 5:29 PM OFFICE MAIL CLERK Impressions 07/13/2024 6:29 PM OFFICE MAIL CLERK IMPRESSION: 1. Absence of the scaphoid and trapezium. Chronic deformity of the capitate and trapezoid. Small chronic ossicles and numerous tiny metallic foreign bodies in and adjacent to the wrist. These findings are all likely related to old trauma. 2. There is proximal and dorsal migration of the carpal bones in relation to the distal radius, probably chronic. Clinical correlation needed. 3. Otherwise, negative. There is no evidence of an acute fracture. There is no evidence of hand pathology. Narrative 07/13/2024 6:29 PM OFFICE MAIL CLERK EXAM: XR HAND LEFT G/E 3 VIEWS LOCATION: [facility] DATE: 07/13/2024 INDICATION: Punched a wall, hand trauma and pain. COMPARISON: None. Procedure Note Theron Fuchs MD - 07/13/2024 EXAM: XR HAND LEFT G/E 3 VIEWS LOCATION: [facility] DATE: 07/13/2024 INDICATION: Punched a wall, hand trauma and pain. COMPARISON: None. IMPRESSION: 1. Absence of the scaphoid and trapezium. Chronic deformity of thecapitate and trapezoid. Small chronic ossicles and numerous tiny metallicforeign bodies in and adjacent to the wrist. These findings are all likelyrelated to old trauma. 2. There is proximal and dorsal migration of the carpal bones in relationto the distal radius, probably chronic. Clinical correlation needed. 3. Otherwise, negative. There is no evidence of an acute fracture. Thereis no evidence of hand pathology. Mickey Domingo PA-C IMSiddhartha DIAGNOSTIC IMAGING ORDSiri FINE Final Result * CBC with platelets and differential (07/10/2024 7:54 AM OFFICE MAIL CLERK) [facility] WBC Count 6.2 4.0 - 11.0 10e3/uL 07/10/2024 8:58 AM OFFICE MAIL CLERK UR LABORATORY RBC Count 5.00 4.40 - 5.90 10e6/uL 07/10/2024 8:58 AM OFFICE MAIL CLERK UR LAB[facility]ORY Hemoglobin 14.4 13.3 - 17.7 g/dL 07/10/2024 8:58 AM OFFICE MAIL CLERK UR LAB[facility]ATORY Hematocrit 42.7 40.0 - 53.0 % 07/10/2024 8:58 AM OFFICE MAIL CLERK UR LAB[facility]ORY MCV 85 78 - 100 fL 07/10/2024 8:58 AM OFFICE MAIL CLERK UR [facility]ORY MCH 28.8 26.5 - 33.0 pg 07/10/2024 8:58 AM OFFICE MAIL CLERK UR [facility]ORY MCHC 33.7 31.5 - 36.5 g/dL 07/10/2024 8:58 AM OFFICE MAIL CLERK UR [facility] RDW 12.8 10.0 - 15.0 % 07/10/2024 8:58 AM OFFICE MAIL CLERK UR [facility] Platelet Count 296 150 - 450 10e3/uL 07/10/2024 8:58 AM OFFICE MAIL CLERK UR [facility] % Neutrophils 54 % 07/10/2024 8:58 AM OFFICE MAIL CLERK UR [facility] % Lymphocytes 28 % 07/10/2024 8:58 AM OFFICE MAIL CLERK UR [facility] % Monocytes 12 % 07/10/2024 8:58 AM OFFICE MAIL CLERK UR [facility] % Eosinophils 6 % 07/10/2024 8:58 AM OFFICE MAIL CLERK UR [facility] % Basophils 1 % 07/10/2024 8:58 AM OFFICE MAIL CLERK UR [facility] % Immature Granulocytes 0 % 07/10/2024 8:58 AM OFFICE MAIL CLERK UR [facility] NRBCs per 100 WBC 0 <1 /100 025 8:58 AM OFFICE MAIL CLERK UR [facility] Absolute Neutrophils 3.3 1.6 - 8.3 10e3/uL 07/10/2024 8:58 AM OFFICE MAIL CLERK UR [facility] Absolute Lymphocytes 1.7 0.8 - 5.3 10e3/uL 07/10/2024 8:58 AM OFFICE MAIL CLERK UR [facility] Absolute Monocytes 0.7 0.0 - 1.3 10e3/uL 07/10/2024 8:58 AM OFFICE MAIL CLERK UR [facility] Absolute Eosinophils 0.4 0.0 - 0.7 10e3/uL 07/10/2024 8:58 AM OFFICE MAIL CLERK UR [facility] Absolute Basophils 0.0 0.0 - 0.2 10e3/uL 07/10/2024 8:58 AM OFFICE MAIL CLERK UR [facility] Absolute Immature Granulocytes 0.0 <=0.4 10e3/uL 07/10/2024 8:58 AM OFFICE MAIL CLERK UR [facility] Absolute NRBCs 0.0 10e3/uL 07/10/2024 8:58 AM OFFICE MAIL CLERK UR [facility] Blood STRUCTURE OF RIGHT UPPER LIMB / Unknown Venipuncture / Unknown 07/10/2024 7:54 AM OFFICE MAIL CLERK 07/10/2024 8:52 AM OFFICE MAIL CLERK Jonathan Johnson MD LAB - BLOOD ORDERABLES F inal Result UR LABORATORY [facility] [address] [place] [address], Room [address] * TSH with free T4 reflex and/or T3 as indicated (07/10/2024 7:54 AM OFFICE MAIL CLERK) TSH 2.13 0.30 - 4.20 uIU/mL 07/10/2024 9:38 AM OFFICE MAIL CLERK UR LAB[facility]ATORY Blood STRUCTURE OF RIGHT UPPER LIMB / Unknown Venipuncture / Unknown 07/10/2024 7:54 AM OFFICE MAIL CLERK 07/10/2024 8:52 AM OFFICE MAIL CLERK Jonathan Johnson MD LAB - BLOOD ORDERABLES F inal Result UR LABORATORY [facility] [address] [place] [address], Room [address] * (ABNORMAL) Lipid panel (07/10/2024 7:54 AM OFFICE MAIL CLERK) Cholesterol 194 <200 mg/dL 07/10/2024 9:52 AM OFFICE MAIL CLERK UR LAB[facility]ATORY Triglycerides 598(H) <150 mg/dL 07/10/2024 9:52 AM OFFICE MAIL CLERK UR LAB[facility]ATORY Direct Measure HDL 39(L) >=40 mg/dL 07/10/2024 9:52 AM OFFICE MAIL CLERK UR LAB[facility]ATORY LDL Cholesterol Calculated 07/10/2024 9:52 AM OFFICE MAIL CLERK UR [facility] Comment:Cannot estimate LDL when triglyceride exceeds 400 mg/dL Non HDL Cholesterol 155(H) <130 mg/dL 07/10/2024 9:52 AM OFFICE MAIL CLERK UR LAB[facility]ATORY Blood STRUCTURE OF RIGHT UPPER LIMB / Unknown Venipuncture / Unknown 07/10/2024 7:54 AM OFFICE MAIL CLERK 07/10/2024 8:52 AM OFFICE MAIL CLERK Narrative UR LABORATORY - 07/10/2024 9:52 AM OFFICE MAIL CLERK Cholesterol Desirable: < 200 mg/dL Borderline High: 200 - 239 mg/dL High: >= 240 mg/dL Triglycerides Normal: < 150 mg/dL Borderline High: 150 - 199 mg/dL High: 200-499 mg/dL Very High: >= 500 mg/dL Direct Measure HDL Female: >= 50 mg/dL Male: >= 40 mg/dL LDL Cholesterol Desirable: < 100 mg/dL Above Desirable: 100 - 129 mg/dL Borderline High: 130 - 159 mg/dL High: 160 - 189 mg/dL Very High: >= 190 mg/dL Non HDL Cholesterol Desirable: < 130 mg/dL Above Desirable: 130 - 159 mg/dL Borderline High: 160 - 189 mg/dL High: 190 - 219 mg/dL Very High: >= 220 mg/dL Jonathan Johnson MD LAB - BLOOD ORDERABLES F inal Result UR LABORATORY [facility] [address] [facility], [address] [place] [address] * Hemoglobin A1c (07/10/2024 7:54 AM OFFICE MAIL CLERK) Estimated Average Glucose 108 <117 mg/dL 07/10/2024 9:30 AM OFFICE MAIL CLERK UR LABORATORY Hemoglobin A1C 5.4 <5.7 % 07/10/2024 9:30 AM OFFICE MAIL CLERK UR LABORATORY Comment: Normal <5.7% Prediabetes 5.7-6.4% Diabetes 6.5% or higher Note: Adopted from ADA consensus guidelines. Blood STRUCTURE OF RIGHT UPPER LIMB / Unknown Venipuncture / Unknown 07/10/2024 7:54 AM OFFICE MAIL CLERK 07/10/2024 8:52 AM OFFICE MAIL CLERK us Jonathan L Kholomyansky MD LAB - BLOOD ORDERABLES F inal Result UR LABORATORY [facility] [address] [facility], [address] [place] [address], [facility] * (ABNORMAL) Comprehensive metabolic panel (07/10/2024 7:54 AM OFFICE MAIL CLERK) Sodium 138 135 - 145 mmol/L 07/10/2024 9:38 AM OFFICE MAIL CLERK UR LAB[facility]ATORY Potassium 4.2 3.4 - 5.3 mmol/L 07/10/2024 9:38 AM OFFICE MAIL CLERK UR LAB[facility]ATORY Carbon Dioxide (CO2) 23 22 - 29 mmol/L 07/10/2024 9:38 AM OFFICE MAIL CLERK UR LAB[facility]ORY Anion Gap 13 7 - 15 mmol/L 07/10/2024 9:38 AM OFFICE MAIL CLERK UR LAB[facility]ATORY Urea Nitrogen 28.5(H) 6.0 - 20.0 mg/dL 07/10/2024 9:38 AM OFFICE MAIL CLERK UR LAB[facility]ATORY Creatinine 0.89 0.67 - 1.17 mg/dL 07/10/2024 9:38 AM OFFICE MAIL CLERK UR LAB[facility]ATORY GFR Estimate >90 >60 mL/min/1.7 3m2 07/10/2024 9:38 AM OFFICE MAIL CLERK UR LAB[facility]ORY Comment:eGFR calculated us2020 CKD-EPI equation. Calcium 9.4 8.8 - 10.4 mg/dL 07/10/2024 9:38 AM OFFICE MAIL CLERK UR LAB[facility]ATORY Chloride 102 98 - 107 mmol/L 07/10/2024 9:38 AM OFFICE MAIL CLERK UR LAB[facility]ORY Glucose 96 70 - 99 mg/dL 07/10/2024 9:38 AM OFFICE MAIL CLERK UR LAB[facility]ORY Alkaline Phosphatase 62 40 - 150 U/L 07/10/2024 9:38 AM OFFICE MAIL CLERK UR LAB[facility]ORY AST 28 0 - 45 U/L 07/10/2024 9:38 AM OFFICE MAIL CLERK UR LAB[facility]ORY ALT 26 0 - 70 U/L 07/10/2024 9:38 AM OFFICE MAIL CLERK UR LAB[facility]ORY Protein Total 6.9 6.4 - 8.3 g/dL 07/10/2024 9:38 AM OFFICE MAIL CLERK UR LAB[facility]ORY Albumin 3.8 3.5 - 5.2 g/dL 07/10/2024 9:38 AM OFFICE MAIL CLERK UR LAB[facility]ATORY Bilirubin Total 0.2 <=1.2 mg/dL 07/10/2024 9:38 AM OFFICE MAIL CLERK UR LAB[facility]ATORY Blood STRUCTURE OF RIGHT UPPER LIMB / Unknown Venipuncture / Unknown 07/10/2024 7:54 AM OFFICE MAIL CLERK 07/10/2024 8:52 AM OFFICE MAIL CLERK us Jonathan Johnson MD LAB - BLOOD ORDERABLES F inal Result UR LABORATORY [facility] [address] [facility], [address] * Hepatitis C antibody (07/03/2013 4:59 PM OFFICE MAIL CLERK) Hepatitis C Antibody Negative NEG [facility] Blood specimen (specimen) 07/03/2013 4:59 PM OFFICE MAIL CLERK 07/03/2013 5:00 PM OFFICE MAIL CLERK us Cinthia Arias PA-C LAB - BLOOD ORDERAB LES Final Result [facility] [address] from Last 3 Months or Most Recently Relevant to Health Maintenance Insurance [address] [place] [address] MEDICARE OUT OF STATE [place] Member Subscriber Plan / Payer ( fective 2020-Present) Name:Landon Lerma Relation to Subscriber:Self Name:Landon Lerma Payer ID:[id number] Group ID:Not on file Type:Medicaid Address: [place] [id number] MEDICARE OUT OF [place] Member Subscriber Plan / Payer ( fective 2020-Present) Name:Landon Lerma Relation to Subscriber:Self Name:Landon Lerma Payer ID:[id number] Group ID:Not on file Type:Medicaid Address: [place] [id number] OUT OF STATE [place] MEDICARE Advance Directives For more information, please contact: [phone] * Full Code (Latest Code Status on File) Date Activated Date Inactivated Comments 07/09/2024 7:59 PM 07/16/2024 3:53 PM All basic and advanced life-sustaining interventions are performed as appropriate Question Answer Comments Code status determined by: Discussion with patie nt/ legal decision maker * Full Code Date Activated Date Inactivated Comments 11/20/2023 12:24 PM 12/07/2023 4:40 PM All basic an d advanced life-sustaining interventions are performed as appropriate Question Answer Comments Code status determined by: Unable to dis cuss and no AD/POLST on file; continue PREVIOUSLY ORDERED code status * Full Code Date Activated Date Inactivated Comments 10/16/2023 6:00 [...] Comments 08/20/2013 4:56 PM 09/01/2013 1:40 PM Care Teams Senior Service Technician Relationship Specialty Start Date End Date [facility] - [address] [address] PCP - General Internal Medicine 10/15/23
--- OUTSIDE RECORDS SUMMARY | 2024-10-06 00:38 | XMS_ITS | Encounter Summary ---
Author Organization [facility] Address [address] [place] [address]. [place] [address] Care Team Providers Care Hat Renovator Name Role Phone Leah Dale APRN, CNP Primary Care Provider Meng Conner MD Primary Care Provider [phone] [facility] Primary Care Provide r [facility] Primary Care Provider Reason for Visit * Reason Onset Date Comments Mental Health Problem 11/01/2013 Encounter Details Date Type Department Care Team ([facility] st Contact Info) Description 11/01/2013 Telephone [facility] Behavioral Health Intake [address] [place] [address] Generic, Behavioral Intake, Mental Health Problem Social History Tobacco Use [...] in an abandoned building, in an overnight snf, or couch-surfing.) No 07/09/2024 Are you worried [...] on file Legal Sex Male 3:10 AM MANAGER [place] Gender Identity Not on file Sexual Orientation [...] [facility] Carol, case was discussed w/ Dr. Thakkar, and Bijan accepts for [place] 20/[place] documented in this encounter Plan of Treatment Not on file documented as of this encounter Visit Diagnoses Not on filedocumented in this encounter Additional Health Concerns Infection Onset Date Last Indicated Resolved Time MRSA-Contact Isolation Comment:MRSA: 01-21-02 skin and sputum Infection erroneous 06/06/2021 11 :03 AM MANAGER [place] MRSA 06/23/2021 06/23/2021 10/16/2023 9:21 AM CDT COVID-19 05/10/2024 05/10/2024 05/21/2024 11:4 1 PM MANAGER [place] documented as of this encounter Care Teams Hat Renovator Relationship Specialty Start Date End Date Leah Dale APRN CLINICIAN ONCOLOGY PCP - General Nurse Practitioner - Adult Health 09/20/13 01/10/15 Meng Conner MD PCP - General Internal Medicine 12/13/15 07/12/[address] [id number] PCP - General 10/16/22 10/14/[address] [address] PCP - General Internal Medicine 10/15/23 documented as of this encounter
--- OUTSIDE RECORDS SUMMARY | 2024-10-06 00:38 | XMS_ITS | Clinical Summary ---
Author Organization [facility] Address [address] [place] [address] Care Team Providers Care Inside Trucker Name Role Phone Meng Conner MD Primary Care Provider Unavailab le Source Comments You are receiving this document as you are listed as the primary care provider,follow-up provider, or the patient has been referred to you for consultation.This is in compliance with the Medicare and[facility] EHR Incentive Program,which states Providers who transition their patient to another setting of careor provider of care or refers their patient to another provider of care shouldprovide summary care record for each transition of care or referral. Pushkart Allergies Active Allergy Reactions Criticality Noted Date Comments Cefazolin Other, see comments,Unknown,Respira tory Distress High 03/10/2015 Childhood rx- pt does not remember Medications gabapentin (NEURONTIN) 300 MG capsule Take 1 capsule (300 mg) by mouth three times a day as needed for anxiety or sleep. 60 Capsule 1 01/04/2024 10:03 AM CDT 4 01/04/20 25 Active lithium carbonate ER (LITHOBID) 300 MG extended release tabletIndicatio ns:Depressive Phase Bipolar Mood Disorder Take 4 Tablets (1,200 mg) by mouth daily at bedtime. Indications: Depressive Phase of Manic-Depressio n 120 Tablet 1 01/04/2024 10:03 AM CDT 4 01/04/20 25 Active melatonin 3 MG tabletIndicatio ns:Insomnia Take 1 Tablet (3 mg) by mouth daily at bedtime. Indications: Trouble Sleeping 30 Tablet 1 01/04/2024 10:03 AM CDT 4 Active OLANZapine (ZYPREXA) 20 MG tabletIndicatio ns:SCAD Take 1 Tablet (20 mg) by mouth daily at bedtime. Indications: SCAD 30 Tablet 1 01/04/2024 10:03 AM CDT 4 Active propranolol (INDERAL) 10 MG tabletIndicatio ns:Neuroleptic- Induced Akathisia Take 1 tablet (10 mg) by mouth 4 times daily as needed for akithisia or anxiety. Indications: Neuroleptic-Ind uced Akathisia 60 Tablet 1 01/04/2024 10:03 AM CDT 4 01/04/20 25 Active QUEtiapine (SEROQUEL) 50 MG tabletIndicatio ns:SCAD Take 1 tablet (50 mg) by mouth two times daily as needed for insomnia or agitation. Indications: SCAD 30 Tablet 1 01/04/2024 10:03 AM CDT 4 Active traZODone (DESYREL) 50 MG tabletIndicatio ns:Insomnia Take 1 Tablet (50 mg) by mouth at bedtime as needed for Sleep. Indications: Trouble Sleeping 30 Tablet 1 01/04/2024 10:03 AM CDT 4 01/04/20 25 Active OLANZapine (ZYPREXA) 20 MG tablet Take 1 Tablet (20 mg) by mouth daily at bedtime. 14 Tablet 4 Active gabapentin (NEURONTIN) 300 MG capsule Take 1 capsule (300 mg) by mouth three times a day as needed for anxiety or sleep for up to 12 doses. 12 Capsule 4 Active Active Problems Problem Noted Date Diagnosed Date Methamphetamine use disorder, severe, dependence 12/25/2023 Loose body in knee, right knee 07/26/2022 Overview (07/26/2022): Added automatically from request for surgery [id number] Chronic pain of right knee 05/24/2022 Overview (05/24/2022): Added automatically from request for surgery [id number] Effusion of right knee 05/24/2022 Overview (05/24/2022): Added automatically from request for surgery [id number] Painful orthopaedic hardware 05/24/2022 Overview (05/24/2022): Added automatically from request for surgery [id number] Multiple fractures of pelvis with stable disruption of pelvic k[place] with routine healing 03/13/2015 Femur fracture, right [...] Attention or concentration deficit 02/15/2011 Esophagitis 11/19/2009 Overview (07/28/2022): EGD 11/2008 esophageal ulcer Abnormal weight gain 09/23/2007 Immunizations Immunization Administration Dates Next Due 9vHPV (Gardasil 9) 06/08/2022 Flu Vac (3+ yrs) 04/11/2007 Fluzone Qiv Multidose Vial 0.25 (6-35 Mos) 04/29 Influenza IIV4 (Quadrivalent) 0.5mL (69937) 03/04,08/22/2013 PPSV23 (Pneumovax) 08/22/2013 Tdap 02/22/2015,02/13/2007 Social History Tobacco Use Types Packs/Day Years Used Date Smoking Tobacco: Former Cigarettes Q uit: 01/2023 Smokeless Tobacco: Never Alcohol Use Standard Drinks/Week Comments No 0 (1 standard drink = 0.6 oz pur e alcohol) [facility] Utilities Answer Date Recorded In the past 12 months has th e [email or web address], gas, oil, or water company threatened to shut off services in your home? Yes 12/23/2023 Humiliation, Afraid, Rape, and Kick questionnair e Answer Date Recorded Within the last year, have y ou been afraid of your partner or ex-partner? No 03/30/2024 Within the last year, have y ou been humiliated or emotionally abused in other ways by your partner or ex-partner? No Within the last year, have y ou been kicked, hit, slapped, or otherwise physically hurt by your partner or ex-partner? No 03/30/2024 Within the last year, have y ou been raped or forced to have any kind of sexual activity by your partner or ex-partner? No 03/30/2024 Hunger Vital Sign Answer Date Recorded Within the past 12 months, y ou worried that your food would run out before you got the money to buy more. Often true 12/23/19 Within the past 12 months, t he food you bought just didn't last and you didn't have money to get more. Often true 12/23/2023 PRAPARE - Transportation Answer Date Re corded In the past 12 months, has l ack of transportation kept you from medical appointments or from getting medications? Yes 12/03 In the past 12 months, has l ack of transportation kept you from meetings, work, or from getting things needed for daily living? Yes 12/23/2023 Housing Stability Vital Sign Answer Mauricio e Recorded In the last 12 months, was t here a time when you were not able to pay the mortgage or rent on time? No 12/23/2023 In the last 12 months, how many places have you lived? Not on file 12/23/2023 In the last 12 months, was t here a time when you did not have a steady place to sleep or slept in a custodial (including now)? Yes 12/23/2023 Sex and Gender Information Value Date Recorded Sex Assigned at Not on file Legal Sex Male 7:12 AM CDT Gender Identity Not on file Sexual Orientation Not on file Last Filed Vital Signs Vital Sign Reading Time Taken Comments Blood Pressure 117/75 03/30/2024 10:58 AM CDT Pulse 59 03/30/2024 10:58 AM CDT Temperature 36.9 C (98.4 F) 03/30/2024 10:58 AM CDT Respiratory Rate 18 03/30/2024 10:58 AM CDT Oxygen Saturation 100% 03/30/2024 10:58 AM CDT Inhaled Oxygen Concentration - - Weight 93 kg (205 lb 1.6 oz) 12/30/2023 8:45 AM CDT Height 172.7 cm (5' 8) 12/23/2023 7:00 PM CDT Body Mass Index 31.19 12/23/2023 7:00 PM CDT Plan of Treatment Health Maintenance Due Date Last Done Comments Hep C Screening (Preventive Services) 1985 Medicare Annual Wellness Visit 1985 HepB Vaccine (1) 2002 Cholesterol 2018 HPV Vaccine (2 - 3-dose SCDM series) 07/06/2022 06/08/2022 COVID-19 Vaccine ( - season) 2024 Influenza Vaccine (Season Ended) 2025 04/29/2022, 03/14/2015, 08/22/2013, Additional history exists DTaP/Tdap/Td Vaccine (3 - Tdap) 02/22/2025 02/22/2015, 02/13/2007 Diabetes Screening- (based on age and BMI) 10/17/2026 10/18/2023, 01/03/2023, 06/26/2022, Additional history exists Zoster/Shingles Vaccine (1 of 2) 2033 Pneumococcal Vaccine Aged Out 08/22/2013 No long er eligible based on patient's age to complete this topic HIV Screening (Preventive Services) Completed 06/08/2022 HepA Vaccine Aged Out No longer eligi ble based on patient's age to complete this topic Hib Vaccine Aged Out No longer eligi ble based on patient's age to complete this topic IPV (Polio) Vaccine Aged Out No longe r eligible based on patient's age to complete this topic MCV4 Vaccine Aged Out No longer eligi ble based on patient's age to complete this topic Meningococcal B Vaccine Aged Out No l onger eligible based on patient's age to complete this topic Insurance MEDICARE MEDICARE MEDICARE MEDICARE MEDICARE Advance Directives * Full Code (Latest Code Status on File) Date Activated Date Inactivated Comments 12/23/2023 6:39 PM 01/04/2024 12:31 PM * Full Code Date Activated Date Inactivated Comments 08/02/2022 10:12 AM 08/02/2022 2:09 PM * Full Code Date Activated Date Inactivated Comments 12/28/2014 2:27 AM 12/29/2014 5:03 PM * Full Code Date Activated Date Inactivated Comments 07/21/2013 12:29 AM 07/22/2013 2:01 PM Care Teams Inside Trucker Relationship Specialty Start Date End Date Meng Conner MD [address] [facility], [address] PCP - General 02/03/16
--- OUTSIDE RECORDS SUMMARY | 2024-10-06 00:38 | XMS_ITS | Encounter Summary ---
Author Organization [facility] Address [address] [place] [address]. [place] [address] Care Team Providers Care Corporate Travel Agent Name Role Phone No Ref-Primary, Physician Primary Care Provider Leah Dale APRN, CNP Primary Care Provider Meng Conner MD Primary Care Provider [phone] [facility] Primary Care Provide r [facility] Primary Care Provider Reason for Visit * Reason Onset Date Comments MH/CD Inpatient 07/22/2013 Encounter Details Date Type Department Care Team ([facility] st Contact Info) Description 07/22/2013 Telephone [facility] Behavioral Health Intake [address] [place] [address] Generic, Behavioral Intake, MH/CD Inpatient [...] in an abandoned building, in an overnight care home, or couch-surfing.) No 07/09/2024 Are you worried [...] on file Legal 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 Melissa provides clinical. B: [...] this time. R: Admit to station 20, Barbara accepts. AGE MACHINE OPERATOR documented in this encounter Plan of Treatment Not on file documented as of this encounter Visit Diagnoses Not on filedocumented in this encounter Additional Health Concerns Infection Onset Date Last Indicated Resolved Time MRSA-Contact Isolation Comment:MRSA: 8-20-02 skin and sputum Infection erroneous 06/06/2021 11 :03 AM SELVAGE MACHINE OPERATOR MRSA 06/23/2021 06/23/2021 10/16/2023 9:21 AM CDT COVID-19 05/10/2024 05/10/2024 05/21/2024 11:4 1 PM SELVAGE MACHINE OPERATOR documented as of this encounter Care Teams Corporate Travel Agent Relationship Specialty Start Date End Date No Ref-Primary, Physician PCP - General 06/23/13 09/19/13 Leah Dale APRN CNP PCP - General Nurse Practitioner - Adult Health 09/20/13 01/10/15 Meng Conner MD PCP - General Internal Medicine 12/13/15 07/12/[address] [address] PCP - General 10/16/22 10/14/23 [facility] - [address] [address] PCP - General Internal Medicine 10/15/23 documented as of this encounter
--- OUTSIDE RECORDS SUMMARY | 2024-10-06 00:38 | XMS_ITS | Encounter Summary ---
Author Organization [facility] Address [address] [facility] [place] [address] Care Team Providers Care Senior Contracts Manager Name Role Phone Avani Flowers Md Primary Care Provider Gene Mcgregor MD Primary Care Provider [phone] No Ref-Primary, Physician Primary Care Provider Leah Dale APRN WAREHOUSING TECHNICIAN Primary Care Provider Meng Conner MD Primary Care Provider [phone] [facility] Primary Care Provide r [facility] Primary Care Provider Reason for Visit * Reason Onset Date Comments Outpatient 12/29/2011 Other Encounter Details Date Type Department Care Team (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 No / Unsure 10/16/2022 9:06 AM CDT documented as of this encounter Miscellaneous Notes * Telephone Encounter - Teresita Solis - 01/22/2012 9:22 AM CDT Scheduled. Teresita Solis * Telephone Encounter - Teresita [...] Note: He has a change of address: [facility] [address] , [address] [place] [address] Thanks, from , Sandy SOTO * Telephone [...] - 12/29/2011 10:49 AM CDT REF TO AR/CD OP TR BY KAIN JACOBSON FROM [facility] [phone]. PT CAME IN TO ESTABLISH A CLIENT [...] sputum Infection erroneous 06/06/2021 11 :03 AM MASTER CONTROL ENGINEER MRSA 06/23/2021 06/23/2021 10/16/2023 9:21 AM CDT COVID-19 05/10/2024 05/10/2024 05/21/2024 11:4 1 PM MASTER CONTROL ENGINEER documented as of this encounter Care Teams Senior Contracts Manager Relationship Specialty Start Date End Date Avani Flowers Md PCP - General 03/07/12 05/29/13 Gene Laws MD [address] [place] [address] PCP - General Psychiatry 05/30/13 05/30/13 No Ref-Primary, Physician PCP - General 06/23/13 09/19/13 Leah Dale APRN CNP PCP - General Nurse Practitioner - Adult Health 09/20/13 01/10/15 Meng Conner MD PCP - General Internal Medicine 12/13/15 07/12/[address] [id number] PCP - General 10/16/22 10/14/23 [facility] - [address] [address] PCP - General Internal Medicine 10/15/23 documented as of this encounter
--- OUTSIDE RECORDS SUMMARY | 2024-10-06 00:38 | XMS_ITS | Patient Health Record ---
Author Organization [facility] Address [address] [place] [address] Care Team Providers Care Fishing Floats Assembler Name Role Phone Franco Cummins [phone] Allergies No Known Allergies Reason For Referral No Information Medications Medication SIG (Take, Route, Frequency, Duration) Notes Start Date End Date Status Methocarbamol 750 MG 1 tablet Orally every 8 hrs for 30 04/30/2023 Active Carisoprodol 250 MG 1 tablet as needed Orally Four times a day Active Methocarbamol 750 MG 1 tablet Orally every 8 hrs for 30 days 04/16/2023 Active traMADol HCl 50 MG 1 tablet as needed Orally TID for 7 days Lumbar Radiculopathy M54.16 05/08/2023 Active traMADol HCl 50 MG 1 tablet as needed Orally TID for 7 04/19/2023 Active Diclofenac Sodium 75 MG 1 tablet as needed Orally Twice a day for 30 days Active Meloxicam 15 MG 1 tablet Orally Once a day Active traMADol HCl 50 MG 1 tablet as needed Orally TID for 7 days M54.16 Lumbar Radiculopathy 04/19/2023 Active Plan Of Treatment No Information Insurance Providers Payer Name Payer Address Payer Phone Subscriber Number Group Number Insured Name Patient Relationship to Insured Coverage Start Date Coverage End Date AN[employer] 1 [place] [address] [id number] Landon Lerma Self - patient is the insured Medications Administered Medication Instructions Date of Administration Dosage Notes dexAMETHasone Sod Phos (PF) 04/13/2023 2 mL Medical (General) History Medical History History ICD Code None Listed Surgical History Surgery Date(Month/Year) Shoulder Surgery 2022
--- OUTSIDE RECORDS SUMMARY | 2024-10-06 00:38 | XMS_ITS | Encounter Summary ---
Author Organization [facility] Address [address] [place] [address] Care Team Providers Care Oil Prospecting Observer Name Role Phone No Ref-Primary, Physician Primary Care Provider Leah Dale APRN, CNP Primary Care Provider Meng Conner MD Primary Care Provider [phone] [facility] Primary Care Provide r [facility] Primary Care Provider Reason for Visit * Reason Onset Date Comments MH/CD Inpatient 06/26/2013 Encounter Details Date Type Department Care Team ([facility] st Contact Info) Description 06/26/2013 Telephone [facility] Behavioral Health Intake [address] [place] [address] Generic, Behavioral Intake, MH/CD Inpatient [...] on file 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 Yvrose provides clinical. B: [...] when asked about it. Patient showed an tube coremaker a sara on his hand where he used a long needle he stuck in his hand. Patient planned to bleed out when he did this, but nothing came out. A: Patient has been medically assessed and cleared for admission. Patient has been cooperative and voluntary in [facility]. R: Admit to station 3B under Cleve Hogan accepts. BARREL FINISHER BARREL FINISHER documented in this encounter Plan of Treatment Not on file documented as of this encounter Visit Diagnoses Not on filedocumented in this encounter Additional Health Concerns Infection Onset Date Last Indicated Resolved Time MRSA-Contact Isolation Comment:MRSA: 8--02 skin and sputum Infection erroneous 06/06/2021 11 :03 AM GUN BARREL FINISHER MRSA 06/23/2021 06/23/2021 10/16/2023 9:21 AM CDT COVID-19 05/10/2024 05/10/2024 05/21/2024 11:4 1 PM GUN BARREL FINISHER documented as of this encounter Care Teams Oil Prospecting Observer Relationship Specialty Start Date End Date No Ref-Primary, Physician PCP - General 06/23/13 09/19/13 Leah Dale APRN ACCOUNT RECEIVABLE CLERK PCP - General Nurse Practitioner - Adult Health 09/20/13 01/10/15 Meng Conner MD PCP - General Internal Medicine 12/13/15 07/12/17 [address] [place] [address] PCP - General 10/16/22 10/14/23 Clinic - [address] [address] PCP - General Internal Medicine 10/15/23 documented as of this encounter
--- OUTSIDE RECORDS SUMMARY | 2024-10-06 00:38 | XMS_ITS | Encounter Summary ---
Author Organization [facility] Address [address] [facility] [place] [address] Care Team Providers Care Manager Of Care Name Role Phone Avani Flowers Md Primary Care Provider Gene Mcgregor MD Primary Care Provider [phone] No Ref-Primary, Physician Primary Care Provider Leah Dale APRN BOX NAILER Primary Care Provider Meng Conner MD Primary Care Provider [phone] [facility] Primary Care Provide r 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 No / Unsure 10/16/2022 9:06 AM CDT documented as of this encounter Miscellaneous Notes * Telephone Encounter - Gloria Rocha - 03/04/2012 9:49 AM CDT Message copied by GLORIA ROCHA on SunMar 04, 2012 9:49 AM [...] Last Indicated Resolved Time MRSA-Contact Isolation Comment:MRSA: 8 skin and sputum Infection erroneous 06/06/2021 11 :03 AM FRUIT LOADER MACHINE OPERATOR MRSA 06/23/2021 06/23/2021 10/16/2023 9:21 AM CDT COVID-19 05/10/2024 05/10/2024 05/21/2024 11:4 1 PM FRUIT LOADER MACHINE OPERATOR documented as of this encounter Care Teams Manager Of Care Relationship Specialty Start Date End Date Avani Flowers Md PCP - General 03/07/12 05/29/13 Gene Laws MD [address] [facility] [address] [place] [address] PCP - General Psychiatry 05/30/13 05/30/13 No Ref-Primary, Physician PCP - General 06/23/13 09/19/13 Leah Dale APRN BOX NAILER PCP - General Nurse Practitioner - Adult Health 09/20/13 01/10/15 Meng Conner MD PCP - General Internal Medicine 12/13/15 07/12/17 [place] [address] [address] [place], [place] [id number] PCP - General 10/16/22 10/14/23 Clinic - [address] [address] PCP - General Internal Medicine 10/15/23 documented as of this encounter
--- OUTSIDE RECORDS SUMMARY | 2024-10-06 00:38 | XMS_ITS | Encounter Summary ---
Author Organization [facility] Address [address] [place] [address] Care Team Providers Care Embalmer Apprentice Name Role Phone No Ref-Primary, Physician Primary Care Provider Leah Dale APRN, CNP Primary Care Provider Meng Conner MD Primary Care Provider [phone] [facility] Primary Care Provide r [facility] Primary Care Provider Reason for Visit * Reason Onset Date Comments MH/CD Inpatient 06/27/2013 Encounter Details Date Type Department Care Team ([facility] st Contact Info) Description 06/27/2013 Telephone [facility] Behavioral Health Intake [address] [place] [address] Generic, Behavioral Intake, MH/CD Inpatient [...] in an abandoned building, in an overnight long term, or couch-surfing.) No 07/09/2024 Are you worried [...] on file Legal Sex Male 3:10 AM TOOTH INSPECTOR Gender Identity Not on file Sexual Orientation [...] to 10/maya [address] Dr's order. #10 notified. H INSPECTOR documented in this encounter Plan of Treatment Not on file documented as of this encounter Visit Diagnoses Not on filedocumented in this encounter Additional Health Concerns Infection Onset Date Last Indicated Resolved Time MRSA-Contact Isolation Comment:MRSA: 8 skin and sputum Infection erroneous 06/06/2021 11 :03 AM TOOTH INSPECTOR MRSA 06/23/2021 06/23/2021 10/16/2023 9:21 AM CDT COVID-19 05/10/2024 05/10/2024 05/21/2024 11:4 1 PM TOOTH INSPECTOR documented as of this encounter Care Teams Embalmer Apprentice Relationship Specialty Start Date End Date No Ref-Primary, Physician PCP - General 06/23/13 09/19/13 Leah Dale APRN COAL MINE INSPECTOR PCP - General Nurse Practitioner - Adult Health 09/20/13 01/10/15 Meng Conner MD PCP - General Internal Medicine 12/13/15 07/12/[address] [id number] PCP - General 10/16/22 10/14/[address] [address] PCP - General Internal Medicine 10/15/23 documented as of this encounter
--- OUTSIDE RECORDS SUMMARY | 2024-10-06 00:39 | XMS_ITS | Clinical Summary ---
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 Take with meals. 1 Packet 3 Active varenicline (CHANTIX) 1 mg tabletIndication s:Nicotine dependence due to vaping tobacco product Take 1 mg by mouth two times daily with meals. 84 Tablet 1 3 Active ibuprofen (ADVIL; MOTRIN) 600 mg tabletIndication s:Back pain, unspecified back location, unspecified back pain laterality, unspecified chronicity Take 1 Tablet (600 mg) by mouth every 6 hours if needed for Pain. Maximum of 3200 mg in 24 hours. 40 Tablet 3 Active Active Problems Problem Noted Date Diagnosed Date Schizoaffective disorder, unspecified type 10/20 Stimulant use disorder 01/11/2015 Tobacco use disorder 01/08/2015 Cough 01/08/2015 Unspecified episodic mood disorder 06/11/2011 Polysubstance dependence 06/11/2011 Drug-induced mood disorder(292.84) 06/11/2011 Depressive disorder, not elsewhere classified Major depression, recurrent 06/11/2011 Unspecified psychosis 06/11/2011 Esophagitis, unspecified 11/19/2009 Overview (11/19/2009): EGD 11/2008 esophageal ulcer Immunizations Immunization Administration Dates Next Due HPV 9 (Gardasil [...] of Communication with Friends and Fami ly 0 09/28/2022 Financial Resource Strain Answer Date R ecorded [...] at Not on file Legal Sex Male 6:25 AM [employer] Gender Identity Not on file Sexual Orientation Not on file Obstetrics History Last Filed Vital Signs Vital Sign Reading Time Taken Comments Blood Pressure 122/82 01/19/2023 1:53 AM CDT Pulse 82 01/19/2023 1:53 AM CDT Temperature 36.3 C (97.3 F) 01/19/2023 1:53 AM CDT Respiratory Rate 14 01/19/2023 1:53 AM CDT Oxygen Saturation 98% 01/19/2023 1:53 AM CDT Inhaled Oxygen Concentration - - Weight 74.8 kg (165 lb) 01/19/2023 1:52 AM CDT Height 170.2 cm (5' 7) 01/19/2023 1:52 AM CDT Body Mass Index 25.84 01/19/2023 1:52 AM CDT Plan of Treatment Health Maintenance Due Date Last Done Comments BMI (ht and wt on same day) for age 18+ 09/29/2023 09/28/2022, 07/05/2022 Depression screening for age 12+ 09/29/2023 09/28/2022 COVID-19 vaccine series ( season) 2024 Influenza Vaccine (Season Ended) 2025 04/29/2022, 03/14/2015, 08/22/2013, Additional history exists Tetanus booster 02/22/2025 02/22/2015, 02/13/2007 Lipids for age 35-44 09/29/2027 09/28/2022 Pneumococcal series for age 6-49 Aged Out 08/22/2013 No longer eligible based [...] PANEL AND CHOL/HDL RATIO (09/28/2022 8:27 AM CDT) [facility] Cholesterol, Total 182 100 - 199 mg/dL 09/30/2022 10:09 AM T [facility] Triglycerides 69 0 - 149 mg/dL 09/30/2022 10:09 AM T [facility] ([facility] HDL Cholesterol 56 >39 mg/dL 10:09 AM CDT [facility] VLDL Cholesterol Markel 13 5 - 40 mg/dL 09/30/2022 10:09 AM T [facility] LDL Chol Calc ([facility]) 113(H) 0 - 99 mg/dL 09/30/2022 10:09 AM T [facility] T. Chol/HDL Ratio 3.3 0.0 - 5.0 ratio 09/30/2022 10:09 AM T [facility] Comment: T. Chol/HDL Ratio Men Women 1/2 Avg.Risk 3.4 3.3 Avg.Risk 5.0 4.4 2X Avg.Risk 9.6 7.1 3X Avg.Risk 23.4 11.0 Blood BLOOD SPECIMEN / Unknown Venipuncture / Unknown 09/28/2022 8:27 AM CDT 09/28/2022 8:29 AM CDT Narrative [facility]) - 09/30/2022 10:09 AM CDT Performed at: [address] [place] [address] [address] [place], [place] [id number] Hand Rounder: Vin Hensley MD, Phone: [phone] us Lamont Mccoy MD SEND OUTS Final R esult [facility]) [facility] [place] [address], * LC HCV ANTIBODY RFX TO QUANT PCR (09/28/2022 8:27 AM CDT) HCV Ab Non Reactive Non Reactive 09/30/2022 2:08 PM CDT [facility] ([facility]) Blood BLOOD SPECIMEN / Unknown Venipuncture / Unknown 09/28/2022 8:27 AM CDT 09/28/2022 8:29 AM CDT Narrative [facility] - 09/30/2022 2:08 PM CDT Performed at: [address] [place] [id number] Hand Rounder: Vin Hensley MD, Phone: [phone] Laomnt Mccoy MD LABORATORY Final R esult Performing Organization Address City/[facility]/ZIP Co de Phone Number [facility] ([facility]) [address] [place] [address], * HIV-1/O/2, 4TH GENERATION (09/28/2022 8:27 AM CDT) Pathologist [facility] HIV Scr 4th Gen Non Reactive Non Reactive 09/30/2022 12:07 PM CDT [facility] ([facility]) Comment: HIV Negative HIV-1/HIV-2 antibodies and HIV-1 p24 antigen were NOT detected. There is no laboratory evidence of HIV infection. Blood BLOOD SPECIMEN / Unknown Venipuncture / Unknown 09/28/2022 8:27 AM CDT 09/28/2022 8:29 AM CDT Narrative [facility] - 09/30/2022 12:07 PM CDT Performed at: [address] [place] [id number] Hand Rounder: Vin Hensley MD, Phone: [phone] Lamont Mccoy MD LABORATORY Final R esult Performing Organization Address City/[facility]/ZIP Co de Phone Number [facility]) [address] [place] [address], from Last 3 Months or Most Recently Relevant to Health Maintenance Insurance [employer] MEDICARE [place] ONLY MEDICARE PART B [place] ONLY MEDICARE PART A [place] ONLY MEDICAID Advance Directives * Full Code (Latest Code Status on File) Date Activated Date Inactivated Comments 01/08/2015 2:10 AM 01/11/2015 4:08 PM Question Answer Comments Code Status Discussion: Not Discussed * Full Code Date Activated Date Inactivated Comments 06/10/2011 10:53 PM 06/13/2011 3:00 PM Care Teams Tea Tree Farm Worker Relationship Specialty Start Date End Date Pcp, No . PCP - General 06/15/13
--- OUTSIDE RECORDS SUMMARY | 2024-10-06 00:39 | XMS_ITS | Continuity of Care Document ---
Author Organization [facility] Address [address] [place] [address] Phone Care Team Providers Care Java [email or web address] Architect Name Role Phone Unavailable Unavailable Unavailable Allergies, Adverse Reactions, Alerts Substance Reaction Status Criticality No Known Allergies Active No Inform ation Medications Medication Instructions Dosage Effective Dates (start - stop) Status Comments clonazepam 0.5 mg tablet take 1 tablet by oral route every day as needed 0.5 MG - Active unsure exact dose Procedures Procedure Date Behavioral Health Screening SBIRT Depression Negative Screen OFFICE O/P NEW, LOW LEVEL MDM 30-44 MIN Advance Directives Directive Yes / No Effective Date File Name No Information Encounters Encounter Description Practice Location Reason(s) For Visit Diagnoses Date Provider Providers Copied on Encounter [facility] , [address] [facility], [place], [place], [id number] , tel:[phone] Fabian Edward Schizoaffecti ve disorder (chief complaint) Schizoaffecti ve disorder, unspecified typeTardive dyskinesia 1 No Information OFFICE O/P NEW, LOW LEVEL MDM 30-44 MIN [facility] , [address] [facility], [place], [place], [id number] , [place] tel:[phone] Fabian Edward Establish care (chief complaint)tar dive dyskinesia (chief complaint) Schizoaffecti ve disorder, unspecified typeBenzodiaz epine dependenceTar dive dyskinesia 1 Sonya Malin. [address] [place] [address] [address], [id number] [address] [place] [address], [id number], [place]. tel:[phone] Family History Family Member Type Diagnosis Age At Onset No Information Payers Payer name Insurance type Covered green party ID Douglas kumar(s) Ruben KAUFFMAN [id number] Social History Type Description Quantity Date Captured Comments Alcohol Use Details Unknown Caffeine Use Details Unknown Tobacco Use Status No Information Smoking Status No Information Sex Male Chief Complaint And Reason For Visit From encounter dated 03/23/2021 10:11'. Schizoaffective disorder (chief complaint). Description: [facility] reached out to pt per PCP request to discuss referral to [facility]. [facility] also noted that SBIRT was not completed, so P administered SBIRT with pt today. Pt consented to receive telehealth visit today. P reviewed confidentiality (and limits to confidentiality), duty to warn/mandatory reporting, and credentials. Pt acknowledged understanding. Today's visit primarily focused on BEHAVIORAL HEALTH SCREENINGPt reports that he turned inhis intake packet to [facility] yesterday and is now awaiting a phone call to schedule intake. He reports that he has tardive dyskinesia likely caused by a previous medication but he doesn't remember which. Reports that it worsens when he is stressed or agitated. Pt reports staying calm by going to work. 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 Denies any drugs. PHQ 8/ yesterday.Pt denies SI/HI. Unknown family hx of MH or MOHAN issues. [facility] advised of services at Clinic and pt states understanding. Reason For Referral Reason For Referral No Information Plan Of Treatment Date Type Action Status Goal Well Visit. Due on due Goal Depression screening. Due on due Goal Td vaccine. Due on due Goal Diet and Activity Counseling . Due on due Goal Influenza vaccine. Due on Oc due Goal Tdap. Due on due Goal Well Visit. Due on due Goal Depression screening. Due on due Goal Td vaccine. Due on due Goal Diet and Activity Counseling . Due on due Goal Influenza vaccine. Due on Oc due Goal Tdap. Due on due History Of Present Illness Encounter Date Complaint History Of Prese nt Illness Schizoaffective disorder P chasity ched out to pt per PCP request to discuss referral to [facility]. [facility] also noted that SBIRT was not completed, so [facility] administered SBIRT with pt today. Pt consented to receive telehealth visit today. [facility] reviewed confidentiality (and limits to confidentiality), duty to warn/mandatory reporting, and credentials. Pt acknowledged understanding. Today's visit primarily focused on BEHAVIORAL HEALTH SCREENINGPt reports that he turned in his intake packet to [facility] yesterday and is now awaiting a phone call to schedule intake. He reports that he has tardive dyskinesia likely caused by a previous medication but he doesn't remember which. Reports that it worsens when he is stressed or agitated. Pt reports staying calm by going to work. 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 Denies any drugs. PHQ 8/ yesterday.Pt denies SI/HI. Unknown family hx of MH or MOHAN issues. P advised of services at Clinic and pt states understanding. Establish care Chief complaint today: pt has TD and needs to be on medication Chronic medical problems/diagnoses: TDLast saw a medical provider and where: correctional [facility] September 2020 Prior Surgeries: knees and clavicula 2015Current Meds: clonazepam 1.5 am 1.5 night Allergies (add to template): unsure what medication but he is allergic to medication that caused TD SBIRT:Smoker? former smoker Tetanus status: unsure Flu vaccine: no Covid vaccine: yes tardive dyskinesia states other medications have made TD worse, clonazepam has only been the one that helps-interested in a medication called austerdol? Functional Status Date Functional Assessmen t No Information Instructions Date Instruction Additional Infor alexis Dx obtained from PCP chart. Rela vaibhav to Schizoaffective disorder, unspecified type Work on engaging [facility], call in 2 weeks if no response yet Related to Schizoaffective disorder, unspecified type F/U with PCP/[facility] as needed. Rela vaibhav to Schizoaffective disorder, unspecified type Per patient report, [facility] December [facility]-saw psychiatrist at [facility] who told him they don't prescribe benzos and was working on a taper. -Established with [facility] today (intake paperwork only) -Abnormal PHQ - no safety concerns todayPlan:-discussed with patient that we are not a psychiatric/mental health care facility. We have pyschiatry only available for consult, not for management. Due to his complexity of condition with side effects to medications, would be better served with psychiatry and advanced psychiatric team care (such as at [facility]). -will come to clinic to complete S[facility] for [facility]-discussed s/sx of benzo withdrawal and potential complications of untreated withdrawal, advised to go to ED if experiencing any symptoms-Reviewed crisis contact information and plan to call crisis number if having active thoughts of self harm Related to Schizoaffective disorder, unspecified type Per patient this is the reason he is not on antipsychotics for his schizoaffective disorder-would benefit from ongoing psychiatry care for medication management Related to Tardive dyskinesia Assessments Type Assessment Date assessment Schizoaffective disorder, unspec ified type assessment Tardive dyskinesia Patient Care Teams Name Effective Dates (start - stop) Status Members No Information
--- OUTSIDE RECORDS SUMMARY | 2024-10-06 00:39 | XMS_ITS | Encounter Summary ---
Author Organization [facility] Address [address] [place] [address] Care Team Providers Care Basket Weaver Name Role Phone Meng Conner MD Primary [...] on filedocumented in this encounter Care Teams Basket Weaver Relationship Specialty Start Date End Date Meng Conner MD [address] [place] [address] PCP - General 02/03/16 documented as of this encounter
--- OUTSIDE RECORDS SUMMARY | 2024-10-06 00:39 | XMS_ITS ---
Author Organization [facility] Address [address] [place] [address] Care Team Providers Care Material Flow Analyst Name Role Phone PlacidoFranco mosquera Unavailable [phone] TeressaAlonzo Unavailable [phone] Allergies No Known Allergies Reason For Referral Reason Landon is a 38-ye ar-old gentleman presenting with right-sided lumbar radicular pain in L5 dermatomal pattern. On MRI there is a large disc herniation at L5-S1 causing lateral recess stenosis and neural foraminal stenosis with impingement of the L5 nerve root. He recently underwent a right L5/S1, S1 transforaminal epidural steroid injection with short-term benefit. He would like to discuss with neurosurgery possibility of surgery. Diagnosis 1 Lumbar radiculopathy (M54.16) Referral Organization [id number] Referring Provider First Name Alonzo Referring Provider Last Name Teressa Referring Provider Speciality Physical M edicine and Rehabilitation Referred Provider Anupam Moreno Referred Provider Specialty Neurosurgery Referral Priority Routine REASON FOR VISIT LUMBAR RECHECK Medications Medication SIG (Take, Route, Frequency, Duration) Notes Start Date End Date Status Carisoprodol 250 MG 1 tablet as needed Orally Four times a day Active Methocarbamol 750 MG 1 tablet Orally every 8 hrs for 30 days 04/16/2023 Active traMADol HCl 50 MG 1 tablet as needed Orally TID for 7 04/19/2023 Active traMADol HCl 50 MG 1 tablet as needed Orally TID for 7 days Lumbar Radiculopathy M54.16 04/30/2023 Active traMADol HCl 50 MG 1 tablet as needed Orally TID for 7 days M54.16 Lumbar Radiculopathy 04/19/2023 Active Methocarbamol 750 MG 1 tablet Orally every 8 hrs for 30 04/30/2023 Active Diclofenac Sodium 75 MG 1 tablet as needed Orally Twice a day Active Meloxicam 15 MG 1 tablet Orally Once a day Active Encounters Encounter Location Date Provider Diagnosis [id number] [address] [place] [address] 04/30/2023 Alonzo Gannon Lumbar radiculopathy M54.16 Assessments Encounter Date Diagnosis (ICD Code) Assessment Notes Treat ment Notes Treatment Clinical Notes 04/30/2023 Lumbar radiculopathy (ICD-10 - M54.16) 1. Refer to neurosurgical associates for surgical evaluation. 2. Follow-up p.r.n.. 3. Will give short course of tramadol and methocarbamol until he is able follow-up with Neurosurgery. Plan Of Treatment Medication Medication Name Sig Start Date Stop Date Notes traMADol HCl 50 MG 1 tablet as needed Orally TID for 7 days 04/30/2023 Lumbar Radiculopathy M54.16 Methocarbamol 750 MG 1 tablet Orally every 8 hrs for 30 04/30/2023 Treatment Notes Assessment Notes Lumbar radiculopathy 1. Refer to neurosurgical associates for surgical evaluation. 2. Follow-up p.r.n.. 3. Will give short course of tramadol and methocarbamol until he is able follow-up with Neurosurgery. Referrals Referral Date Details 04/30/2023 04/30/2023Frederick is a 38-year-old gentleman presenting with right-sided lumbar radicular pain in L5 dermatomal pattern. On MRI there is a large disc herniation at L5-S1 causing lateral recess stenosis and neural foraminal stenosis with impingement of the L5 nerve root. He recently underwent a right L5/S1, S1 transforaminal epidural steroid injection with short-term benefit. He would like to discuss with neurosurgery possibility of surgery. Anupam Next Appt Details Follow Up: prn, Reason: Progress Notes * Landon LOVE SDOB:1984 (38 yo M)Acc No.[id number]:04/30/2023 Progress Notes Patient: Landon Fallon Provider: Brandt Gannon DO :1985 A ge:38 Y S ex:Male Date:04/30/2023 Address:[address] [place], [place] Subjective: * Chief Complaints: * L UMBAR RECHECK * HPI: * *SUBJECTIVE: Patient returns for a recheck of the lumbar spine. He says he had relief for about 24 hours then his pain returned. He denies any adverse reactions. He says he went to [place] last weeka and recieved a Toradol injection which gave him some relief. He states he continues having room right-sided low back pain radiating into the leg. With any physical activity or ambulation pain is severe. He denies any significant weakness in the right lower extremity. He denies any adverse reactions to the injection. He denies any new neurologic deficits such as saddle anesthesia or bowel/ bladder incontinence. He states he does get some mild relief with tramadol and methocarbamol. * ROS: G eneral/Constitutional: Decreased appetite d enies. F atigue d enies. F ever d enies. W eight loss d enies. O phthalmologic: Vision Loss d enies. D ouble Vision d enies. B lurry vision d enies. E NT: Hearing Loss d enies. S inus problems d enies. D ifficulty in swallowing d enies. H oarseness d enies. E ndocrine: Night Sweats d enies. C old intolerance d enies.?Heat intolerance d enies. R espiratory: Chronic Cough d enies. P neumonia d enies. S hortness of breath d enies. C ardiovascular: Leg Swelling d enies. C hest pressure d enies. C hest pain d enies. P alpitations d enies. G astrointestinal: Gastrointestinal Ulcers d enies. B lood in stool d enies. C onstipation d enies. D iarrhea d enies. H eartburn d enies. N ausea d enies. V omiting d enies. H ematology: Anemia d enies. B leeding problems d enies. E asy bruising d enies. G enitourinary: Kidney problems d enies. B lood in urine d enies.?Painful urination d enies. M usculoskeletal: Bone pain d enies. J oint pain d enies. F ractures d enies. M uscle spasms d enies. N eurologic: Frequent Falls d enies. L oss of coordination d enies. C hange in bowel function d enies. C hange in bladder function d enies. S lurred speech d enies. D izziness d enies. S eizures d enies. T ingling/Numbness d enies. P sychiatric: Drug or alcohol addiction d enies. S leeping disorders?denies. A nxiety d enies. D epressed mood d enies. * Medical History: * Surgical History: S [facility] Surgery 2022 * Hospitalization/Major Diagno stic Procedure: D enies Past Hospitalization * Family History: N o Family History documented.. * Medications: T akingCarisoprodol 250 MG Tablet 1 tablet as needed Orally Four times a dayDiclofenac Sodium 75 MG Tablet Delayed Release 1 tablet as needed Orally Twice a dayMeloxicam 15 MG Tablet 1 tablet Orally Once a dayMethocarbamol 750 MG Tablet 1 tablet Orally every 8 hrstraMADol HCl 50 MG Tablet 1 tablet as needed Orally TIDtraMADol HCl 50 MG Tablet 1 tablet as needed Orally TID, Notes: M54.16 Lumbar RadiculopathyMedication List reviewed and reconciled with the patientTaking Carisoprodol 250 MG Tablet 1 tablet as needed Orally Four times a dayTaking Diclofenac Sodium 75 MG Tablet Delayed Release 1 tablet as needed Orally Twice a dayTaking Meloxicam 15 MG Tablet 1 tablet Orally Once a dayTaking Methocarbamol 750 MG Tablet 1 tablet Orally every 8 hrsTaking traMADol HCl 50 MG Tablet 1 tablet as needed Orally TIDTaking traMADol HCl 50 MG Tablet 1 tablet as needed Orally TID, Notes: M54.16 Lumbar RadiculopathyMedication List reviewed and reconciled with the patient * Allergies: N .K.D.A.no[Allergies Verified] Objective: * Examination: G eneral Examination: DOCUMENT REVIEW: P atient Chart Reviewed. GENERAL APPEARANCE: w ell developed, well nourished, in no acute distress. HEAD: n ormocephalic, without signs of trauma. EYES: p upils equal, round, reactive to light and accommodation. EARS: n ormal. NOSE: n o lesions. THROAT: n ormal. LYMPH NODES: n o lymphadenopathy. SKIN: w arm and dry, intact epidermal layer with no lesions. VASCULAR EXAM: d istal pulses are intact, 2+ and capillary bedrefill less than 2 seconds,bilateral lower extremities. LUNGS: g ood air movement. ABDOMEN: s oft, nontender, nondistended. PSYCH: c ooperative with exam. SENSATION: i ntact sensation, good motor function. ? L umbar Spine: LOWER BACK: n ormal sacroiliac joint mobility bilaterally.? INSPECTION: n o swelling , normal curvature of spine , normal lumbar lordosis. PALPATION: n o vertebral spine tenderness , no paraspinal tenderness. RANGE OF MOTION: f ull R OM and pain noted with lumbar flexion. STRAIGHT LEG RAISING TEST: , positive on the right. STABILITY: n ormal. STRENGTH: w ithin normal limits bilaterally , 5/5 Strength throughout bilateral lower extremities. , no focal motor deficits were noted , no postural weakness demonstrated. MOTOR SYSTEM: 5 /5 bilateral lower extremities. SENSORY EXAM: n ormal bilateral lower extremities , sensation intact to light touch throughout bilateral lower extremities. DEEP TENDON REFLEXES: n ormal , bilaterally symmetrical?, 2+ and symmetrical throughout the upper and lower extremities. GAIT: n ormal , able to toe walk and heel walk with good strength. FACET LOADING: n egative BILATERALLY. HIPS: n on-tender , ROM is WNL. Assessment: * Assessment: 1. L umbar radiculopathy - M54.16 (Primary) Cari Love is a 38-year -old gentleman presenting with right-sided low back pain that radiates into the right lower extremity in L5 dermatomal pattern. MRI lumbar spine showing a right lateral recess/right foraminal disc protrusion at L5-S1 which is contacting exiting right L5 nerve root. On exam he continues having pain with lumbar flexion and a positive straight leg raise on the right. he is unable tolerate PT due to the severity of pain. He states with the right L5/S1 and S1 transforaminal epidural steroid injection with dexamethasone he received about 1-2 Days of pain relief and then it returned. We discussed considering a 2nd injection with triamcinolone to see if this would give him more long sustained relief. However at this time he would like to discuss with Neurosurgery the possibility of a microdiskectomy. Will refer to neurosurgical associates. Plan: * Treatment: * Procedure Codes: * Follow Up: p rn * * ARCH NUTRITIONIST Sign off status: Completed true * Provider: Brandt Gannon, DO Date: 06/30/2022 Generated for Arnulfoi umer/Lorrie/eTransmitting on: 0 10/06/2024 12:38 AM CDT History and Physical Notes * Examination Category Sub-Category Detail Notes General Examination GENERAL APPEARANCE: well dev eloped, well nourished, in no acute distress HEAD: normocephalic, witho ut signs of trauma EYES: pupils equal, round, reactive to light and accommodation EARS: normal NOSE: no lesions THROAT: normal LUNGS: good air movement ABDOMEN: soft, nontender, non distended SKIN: warm and dry, intact epidermal layer with no lesions LYMPH NODES: no lymphadenopathy PSYCH: cooperative with jailyna m DOCUMENT REVIEW: Patient Chart Review ed VASCULAR EXAM: distal pulses are intact, 2+ and capillary bed refill less than 2 seconds, bilateral lower extremities SENSATION: intact sensation, go od motor function Lumbar Spine INSPECTION: no swelling , no rmal curvature of spine , normal lumbar lordosis PALPATION: no vertebral spine t enderness , no paraspinal tenderness RANGE OF MOTION: full ROM and pain no vaibhav with lumbar flexion STRAIGHT LEG RAISING TEST: , positive on the right STABILITY: normal STRENGTH: within normal limits bilaterally , 5/5 Strength throughout bilateral lower extremities. , no focal motor deficits were noted , no postural weakness demonstrated MOTOR SYSTEM: 5/5 bilateral lower extremities SENSORY EXAM: normal bilateral low er extremities , sensation intact to light touch throughout bilateral lower extremities DEEP TENDON REFLEXES: normal , bilateral ly symmetrical , 2+ and symmetrical throughout the upper and lower extremities GAIT: normal , able to toe walk and heel walk with good strength LOWER BACK: normal sacroiliac rosey int mobility bilaterally FACET LOADING: negative BILATERALLY HIPS: non-tender , ROM is WNL Consultation Request Notes Referral Date Referring Provider Referred Provider Not pia 04/30/2023 Teressa, Anupam Gant i s a 38-year-old gentleman presenting with right-sided lumbar radicular pain in L5 dermatomal pattern. On MRI there is a large disc herniation at L5-S1 causing lateral recess stenosis and neural foraminal stenosis with impingement of the L5 nerve root. He recently underwent a right L5/S1, S1 transforaminal epidural steroid injection with short-term benefit. He would like to discuss with neurosurgery possibility of surgery.
[2024-10-06] MEDS: 0.9 % SODIUM CHLORIDE 1000 ml 1,000 ML IV (01:14)
== END 2024-10-06 01:41 | disposition home or self-care (01) ==
PROVIDERS: Emergency Provider Family Medicine
DX: R10.10 Upper abdominal pain, unspecified (principal)
CPT/HCPCS: 74177; 99284; J7030; Q9967

== ENCOUNTER 2025-02-10 22:38 | Outpatient (CLI) | payer MEDICARE, SELFPAY | END 2025-02-10 22:39 | disposition home or self-care (01) | LOC: AMB 02-12 16:24 | PROVIDERS: Visit Provider Family Medicine | DX: R55 Syncope and collapse (principal); R41.82 Altered mental status, unspecified | CPT/HCPCS: A0425; A0433 ==

== ENCOUNTER 2025-02-10 23:08 | Emergency (ER) | payer MEDICARE, SELFPAY ==
--- OUTSIDE RECORDS SUMMARY | 2025-01-14 11:30 | XMS_ITS | Encounter Summary ---
Author Organization [facility] Address [address] [place] [address] Care Team Providers Care Compensation Vice President Name Role Phone Stefanie Donis APRN, C.N.P. Primary Care Provi amie Reason for Visit * Reason Comments Post Ed Visit Follow-up * Appointment Request (Routine) - Closed Specialty Diagnoses / Procedures Referred By Dallin t Referred To Contact Family Medicine Referral ID Status Reason Start Date Expiration Date Visits Re quested Visits Authorized [id number] Closed 01/06/2025 04/08/2026 1 1 Encounter Details Date Type Department Care Team (Late st Contact Info) Description 01/14/2025 11:30 AM CDT Office Visit Department of Family Medicine, [facility], in [place], [place] [address] [address] Stefanie Donis APRN, C.N.P. [address] [address] Obesity Body Mass Index 30-39.9 Adult (Primary Dx); Schizoaffective Disorder (HCC) Social History Tobacco Use Types Packs/Day Years Used Date Smoking Tobacco: Former Cigarettes 1 21.3 0 1998 - 06/04/2019 Smokeless Tobacco: Never Tobacco Cessation:Counseling Given: Not Answered Alcohol Use Standard Drinks/Week Comments Yes 0 (1 standard drink = 0.6 oz pure alcohol) 1-1.5 bottles of wine daily x3wks Humiliation, Afraid, Rape, and Kick questionnair e Answer Date Recorded Within the last year, have y ou been afraid of your partner or ex-partner? Patient declined 12/26/2024 Within the last year, have y ou been humiliated or emotionally abused in other ways by your partner or ex-partner? Patient declined 12/26/2024 Within the last year, have y ou been kicked, hit, slapped, or otherwise physically hurt by your partner or ex-partner? Patient declined 12/26/2024 Within the last year, have y ou been raped or forced to have any kind of sexual activity by your partner or ex-partner? Patient declined 12/26/2024 Hunger Vital Sign Answer Date Recorded Within the past 12 months, y ou worried that your food would run out before you got the money to buy more. Patient declined Within the past 12 months, t he food you bought just didn't last and you didn't have money to get more. Patient declined PRAPARE - Transportation Answer Date Re corded In the past 12 months, has l ack of transportation kept you from medical appointments or from getting medications? Patient declined 12/26/2024 In the past 12 months, has l ack of transportation kept you from meetings, work, or from getting things needed for daily living? Patient declined 12/26/2024 [facility] Utilities Answer Date Recorded In the past 12 months has e electric, gas, oil, or water company threatened to shut off services in your home? Patient declined 12/26/2024 Depression Answer Date Recor ded PHQ-9 Total Score (max 27) 13 01/06 Housing Stability Answer Date Recorded What is your living situatio n today? I do not have a steady place to live (I am temporarily staying with others, in a hotel, in a mcc, living outside on the street, on a beach, in a car, abandoned building, bus or train station, or in a park) 12/26/2024 Sex and Gender Information Value Date Recorded Sex Assigned at Not on file Legal Sex Male 10:34 PM [employer] Gender Identity Not on file Sexual Orientation Not on file documented as of this encounter Last Filed Vital Signs Vital Sign Reading Time Taken Comments Blood Pressure 130/87 01/14/2025 10:18 AM CDT Pulse 93 01/14/2025 10:18 AM CDT Temperature 36.3 C (97.4 F) 01/14/2025 10:18 AM CDT Respiratory Rate - - Oxygen Saturation - - Inhaled Oxygen Concentration - - Weight 112 kg (246 lb 11.1 oz) 01/14/2025 10:18 AM CDT Height 170 cm (5' 6.93) 01/14/2025 10:18 AM CDT Body Mass Index 38.72 01/14/2025 10:18 AM CDT documented in this encounter Patient Instructions * Patient Instructions* Stefanie Donis APRN, C.N.P. - 01/14/2025 11:30 AM CDT 1. Follow up with Psychiatry as previously scheduled, make sure you mentioned that the Strattera has not been very helpful, and do an overview of your current medications. 2. Start Ozempic if covered, increase dose monthly. Prior to refill monthly, update Stefanie via portal or phone call with report on your weight, how your feeling, and if you are tolerating this okay and ready for a dose increase. documented in this encounter Progress Notes * Stefanie Donis APRN, C.N.P. - 01/14/2025 11:30 AM CDT DATE OF VISIT: 01/14/2025 SUBJECTIVE CHIEF COMPLAINT / REASON FOR VISIT Landon Lerma is a 39 y.o. male who presents for evaluation of Post Ed Visit Follow-up. Dr. Elvie Grant, Psychiatry in [facility], he attends [facility]. The patient verbally consented to an audio recording of their visit to assist with the completion of documentation. History of Present Illness Landon Lerma is a 39 year old male with schizoaffective disorder and antisocial personality disorder who presents for follow-up on mental health and weight management. He was recently diagnosed with schizoaffective disorder and antisocial personality disorder following an ER visit on January 25, 2025. He is under the care of a psychiatrist in [place], with whomhe had an appointment on the of this year. He is taking Lexapro 10 mg, Strattera 40 mg, Zyprexa, and Trileptal (oxcarbazepine). Trileptal is particularly helpful for managing his internal dialogue and slowing his thoughts. Strattera has not been as effective for his focus as he had hoped. He has been taking metformin for approximately two to three weeks. He does not have diabetes, and his A1c levels have been normal. Despite regular exercise, he has difficulty losing weight and wants to switch to Ozempic to manage weight gain. He has a history of alcohol abuse but did not discuss current use. He is currently staying with a friend in [place] while looking for a place to live in the [facility]. His family history includes colon cancer. He has no known family history of thyroid cancer. OBJECTIVE VITAL SIGNS BP 130/87 (BP Location: Right arm, Patient Position: Sitting, Cuff Size: Large) Pulse 93 Temp 36.3 ??C (Temporal) Ht 170 cm Wt 112 kg BMI 38.72 kg/m?? PHYSICAL EXAMINATION General: Well-nourished, well-developed 39 y.o. in no apparent distress. Awake, alert, age appropriate. HEENT: Head is normocephalic, atraumatic. Neck: Neck is supple without lymphadenopathy. Skin: Warm, pink, and dry. No rashes or lesions. Extremities: No peripheral edema. Musculoskeletal: Normal range of motion in all extremities. Neurologic: Alert and oriented x3. ASSESSMENT/ PLAN Obesity Body Mass Index 30-39.9 Adult Difficulty losing weight, possibly due to olanzapine. Interested in Ozempic for weight management. Aware of potential gastrointestinal side effects and understands dosing strategy. - Start Ozempic if covered by insurance, increase dose monthly. - Update provider monthly on weight, overall feeling, and medication tolerance. - Encourage continued exercise and muscle strengthening. - Contact insurance for Ozempic coverage and alternatives. Orders: semaglutide (Ozempic) 0.25 mg or 0.5 mg (2 mg/3 mL) injection; Inject 0.25 mg under the skin every 7 (seven) days for 28 days, THEN inject 0.5 mg every 7 (seven) days. Schizoaffective Disorder (HCC) Under psychiatric care with Dr. Elvie Grant. Current medications include Lexapro, Zyprexa, and Trileptal. Strattera ineffective for focus. - Follow up with psychiatry as scheduled. - Discuss Strattera's ineffectiveness and review medications with psychiatrist. Follow-up plan in place with psychiatry and weight management. - Follow up with provider in six months. - Send monthly updates on weight management progress. Stefanie Donis APRN, C.N.P. documented in this encounter Miscellaneous Notes * Assessment & Plan Note - Stefanie Donis APRN, C.N.P. - 01/14/2025 11:30 AM CDTAssociated Problem(s): Schizoaffective Disorder (HCC) Under psychiatric care with Dr. Elvie Grant. Current medications include Lexapro, Zyprexa, and Trileptal. Strattera ineffective for focus. - Follow up with psychiatry as scheduled. - Discuss Strattera's ineffectiveness and review medications with psychiatrist. Follow-up plan in place with psychiatry and weight management. - Follow up with provider in six months. - Send monthly updates on weight management progress. documented in this encounter Plan of Treatment Not on file documented as of this encounter Visit Diagnoses Diagnosis Obesity Body Mass Index 30-39.9 Adult- Primary Schizoaffective Disorder (HCC) documented in this encounter Additional Health Concerns Assessment Noted Time PHQ-9 Depression Total Score: 13 025 5:34 PM CDT documented as of this encounter Care Teams Compensation Vice President Relationship Specialty Start Date End Date Stefanie Dnois APRN, C.N.P. [address] [facility] [place] [address] PCP - General Family Medicine 08/20/24 documented as of this encounter
--- OUTSIDE RECORDS SUMMARY | 2025-01-14 11:30 | XMS_ITS | Encounter Summary ---
Author Organization [facility] Address [address] [place] [address] Care Team Providers Care Psychological Anthropologist Name Role Phone Stefanie Donis APRN, C.N.P. Primary Care Provi amie Reason for Visit * Reason Comments Post Ed Visit Follow-up * Appointment Request (Routine) - Closed Specialty Diagnoses / Procedures Referred By Dallin t Referred To Contact Family Medicine Referral ID Status Reason Start Date Expiration Date Visits Re quested Visits Authorized [id number] Closed 01/06/2025 04/08/2026 1 1 Encounter Details Date Type Department Care Team (Late st Contact Info) Description 01/14/2025 11:30 AM CDT Office Visit Department of Family Medicine, [facility], in [place], [place] [address] [address] Stefanie Donis APRN, C.N.P. [address] [address] Obesity Body Mass Index 30-39.9 [...] needed for daily living? 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 Dr. Elvie Grant, Psychiatry in [facility], he attends [facility]. The patient verbally consented to an audio [...] under the care of a psychiatrist in [place], with whomhe had an appointment on the [...] is currently staying with a friend in [place] while looking for a place to live in the [facility]. His family history includes colon cancer. He [...] documented as of this encounter Care Teams Psychological Anthropologist Relationship Specialty Start Date End Date Stefanie Donis APRN, C.N.P. [address] [place] [address] PCP - General Family Medicine 08/20/24 documented as of this encounter
--- OUTSIDE RECORDS SUMMARY | 2025-01-14 12:00 | XMS_ITS | Encounter Summary ---
Author Organization [facility] Address [address] [place] [address] Care Team Providers Care Gut Dropper Name Role Phone Stefanie Donis APRN, C.N.P. Primary Care Provi amie Reason for Referral * Outpatient (Routine) - Authorized Specialty Diagnoses / Procedures Referred By Dallin serrato Referred To Contact Sierra Fair M.D. [address] [place] [address] Phone: tel: fax: [facility] Region Referral ID Status Reason Start Date Expiration Date V isits Requested Visits Authorized [id number] Authorized 01/14/2025 07/16/2026 1 1 Scheduling Instructions 12-Month Medicare Visit Reason for Visit * Reason Comments Medicare Annual Wellness Visit Subsequen t * Outpatient (Routine) - Closed Specialty Diagnoses / Procedures Referred By Dallin serrato Referred To Contact Stefanie Donis APRN, C.N.P. [address] [place] [address] Phone: tel: fax: [facility] Region Referral ID Status Reason Start Date Expiration Date Visits Re quested Visits Authorized [id number] Closed 10/07/2024 04/08/2026 1 1 Encounter Details Date Type Department Care Team (Late st Contact Info) Description 01/14/2025 12:00 PM CDT Office Visit Department of Family Medicine, [facility], in [place], [place] [address], [place] [address] Stefanie Donis, DENTAL EQUIPMENT INSTALLER AND SERVICER, C.N.P. [address] [place] [address] Benji Hoang R.N. [address] [place] [address] Annual Medicare Examination Return (Primary Dx) Social History Tobacco Use Types Packs/Day Years Used Date Smoking Tobacco: Former Cigarettes 1 21.3 0 1998 - 06/04/2019 Smokeless Tobacco: Never Alcohol Use Standard Drinks/Week Comments Yes 0 [...] needed for daily living? Patient declined 12/26/2024 [facility] Utilities Answer Date Recorded In the past 12 months has [employer] electric, gas, oil, or water [employer] threatened to shut off services in your home? Patient declined 12/26/2024 Depression Answer Date Recor ded PHQ-9 Total Score (max 27) 13 01/06 Housing Stability Answer Date Recorded What is your living situatio n today? 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 - 01/14/2025 12:00 PM CDT HEALTH ASSESSMENT Reason For Visit Patient presents with Medicare Annual Wellness Visit Subsequent Face to Face The following portions of the patient's history were reviewed and updated as appropriate: allergies, medications, family history, social history, surgical history and care team/suppliers. VITALS Blood Pressure: 130/87 (01/14/2025 10:18 AM) Temperature: 36.3 ??C (01/14/2025 10:18 AM) Temp Source: Temporal (01/14/2025 10:18 AM) Heart Rate: 68 (12/25/2024 1:00 PM) Pulse Rate: 93 (01/14/2025 10:18 AM) Pulse Rate Source: Pulse oximetry (01/07/2025 8:30 AM) Resp Rate: 18 (01/07/2025 8:30 AM) BMI (Calculated): 38.7 kg/m?? (01/14/2025 10:18 AM) SpO2: 99 % (01/07/2025 8:30 AM) Height: 170 cm (01/14/2025 10:18 AM) Weight: 112 kg (01/14/2025 10:18 AM) Health Risk Assessment and Social Drivers of Health Health Risk Assessment (HRA) completed and reviewed: Yes Social Drivers of Health (SDOH) questionnaires were reviewed during this visit. The following concerns were prioritized to be addressed: No concerns identified. Spent 0 minutes reviewing the SDIA questionnaire responses with the patient. Depression Screening PHQ-2 Score: 2 PHQ-9 Total Score (max 27): 13 Cognitive Assessment Cognitive function assessed by direct observation without concerns. Current Opioid Use None Education regarding non-opioid options for pain management not applicable at this time. FUNCTIONAL/HOME ENVIRONMENT History of falls: Have you fallen within the last year or do you fear you might fall?: No (12/25/2024 1:46 PM) Do you use an assisted device to walk? (Walker, cane, wheelchair, crutch): No (12/25/2024 1:46 PM) Today, do you feel any of the following? Weak, dizzy, shaky, or unsteady?: No (12/25/2024 1:46 PM) Have you taken any medication within the last 6 hours which may make you feel drowsy? Such as sleep, pain, or anxiety medication: Yes (12/25/2024 1:46 PM) Home Safety Patient's home contains the following: Throw Rugs No. Adequate lighting: Yes. Slippery bathtub and/or shower surfaces: No. Grab bars installed in the bathroom: No. Discussed that these may help to reduce the risk of falls and patient will consider installing them as appropriate. Handrails on steps/stairs: Yes. Functional smoke/carbon monoxide alarms: Yes. Patient is reminded to change the batteries every 6 months if device is not A/C powered or hard-wired into the home. Advance Directive Advance Directives: Not Received Information declined Preventive Services Schedule Health Maintenance Topic Date Due Visit: Medicare Annual Wellness Never done HIV Screening Never done Hepatitis C Screening Never done Hepatitis B Vaccines (1 of 3 - 19+ 3-dose series) Never done Pneumococcal vaccine (0-49 years) (2 of 2 - PCV) 08/22/2014 HPV Vaccines (2 - 3-dose SCDM series) 07/06/2022 COVID-19 Vaccine (1 - 2023- season) Never done Depression Screening (Annual PHQ-2) Never done Influenza Vaccine (1) 03/04/2025 Glucose Test for Med Monitoring 12/25/2025 Lipid (Cholesterol) Screening 01/05/2030 DTaP,Tdap,and Td Vaccines (4 - Td or Tdap) 11/14/2033 IPV Vaccines Aged Out After Visit Summary (AVS) reviewed and patient will access via patient online services documented in this encounter Plan of Treatment Scheduled Referrals Name Type Priority Associated Diagnoses Orde r Schedule Primary Care nurse visit (clinic) - [facility] Region; Medicare Annual Wellness Outpatient Referral Routine Expected: 01/14/2026 (Approximate), Expires: 04/16/2026 documented as of this encounter Visit Diagnoses Diagnosis Annual Medicare Examination Return- Primary documented in this encounter Additional Health Concerns Assessment Noted Time PHQ-9 Depression Total Score: 025 5:34 PM CDT documented as of this encounter Care Teams Gut Dropper Relationship Specialty Start Date End Date Stefanie Donis, ESA, C.N.P. [address] [place] [address] PCP - General Family Medicine 08/20/24 documented as of this encounter
--- OUTSIDE RECORDS SUMMARY | 2025-01-14 12:00 | XMS_ITS | Encounter Summary ---
Author Organization [facility] Address [address] [place] [address] Care Team Providers Care Equipment Installation Professional Name Role Phone Stefanie Donis APRN, C.N.P. Primary Care Provi amie Reason for Referral * Outpatient (Routine) - Authorized Specialty Diagnoses / Procedures Referred By Dallin serrato Referred To Contact Sierra Fair M.D. [address] [place] [address] Phone: tel: fax: [facility] Region Referral ID Status Reason Start Date Expiration Date V isits Requested Visits Authorized [id number] Authorized 01/14/2025 07/16/2026 1 1 Scheduling Instructions 12-Month Medicare Visit Reason for Visit * Reason Comments Medicare Annual Wellness Visit Subsequen t * Outpatient (Routine) - Closed Specialty Diagnoses / Procedures Referred By Dallin serrato Referred To Contact Stefanie Donis APRN, C.N.P. [address] [place] [address] Phone: tel: fax: [facility] Region Referral ID Status Reason Start Date Expiration Date Visits Re quested Visits Authorized [id number] Closed 10/07/2024 04/08/2026 1 1 Encounter Details Date Type Department Care Team (Late st Contact Info) Description 01/14/2025 12:00 PM CDT Office Visit Department of Family Medicine, [facility], in [place], [place] [address] [address] Stefanie Donis, DIGITAL TECHNICIAN, C.N.P. [address] [place] [address] Benji Hoang R.N. [address] [place] [address] Annual Medicare Examination Return (Primary Dx) Social [...] needed for daily living? Patient declined 12/26/2024 [facility] Utilities Answer Date Recorded In the past 12 months has [employer] electric, gas, oil, or water [employer] threatened to shut off services in your home? Patient declined 12/26/2024 Depression Answer Date Recor ded PHQ-9 Total Score (max 27) 13 01/06 Housing Stability Answer Date Recorded What is your living situatio n today? 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 Spent 0 minutes reviewing the SDID questionnaire responses with the patient. Depression Screening [...] Schedule Primary Care nurse visit (clinic) - [facility] Region; Medicare Annual Wellness Outpatient Referral Routine Expected: 01/14/2026 (Approximate), Expires: 04/16/2026 documented as of this encounter Visit Diagnoses Diagnosis Annual Medicare Examination Return- Primary documented in this encounter Additional Health Concerns Assessment Noted Time PHQ-9 Depression Total Score: 025 5:34 PM CDT documented as of this encounter Care Teams Equipment Installation Professional Relationship Specialty Start Date End Date Stefanie Donis, ESA, C.N.P. [address] [place] [address] PCP - General Family Medicine 08/20/24 documented as of this encounter
--- OUTSIDE RECORDS SUMMARY | 2025-01-27 11:57 | XMS_ITS | Encounter Summary ---
Author Organization [facility] Address [address] [place] [address] Care Team Providers Care Produce Buyer Name Role Phone Stefanie Donis APRN C.N.P. 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 30 capsule 01/07/2025 9:28 AM CDT 01/07/2025 OLANZapine (ZyPREXA) 15 mg tablet Take 1 tablet (15 mg total) by mouth 2 (two) times a day. 60 tablet 01/14/2025 9:08 AM CDT 01/10/2025 semaglutide (Ozempic) 0.25 mg or 0.5 mg (2 mg/3 mL) injectionIndicati ons:Obesity Body Mass Index 30-39.9 Adult Inject 0.25 mg under the skin every 7 (seven) days for 28 days, THEN inject 0.5 mg every 7 (seven) days. 3 mL 02/04/2025 9:50 AM CDT 01/24/2025 varenicline tartrate (Chantix) 1 mg tabletIndications :smoking cessation Take 1 tablet (1 mg total) by mouth 2 (two) times a day Indications: stop smoking. 60 tablet 01/23/2025 5:29 PM CDT 01/22/2025 varenicline tartrate (Chantix) 1 mg tablet Take 1 tablet (1 mg total) by mouth 2 (two) times a day for 60 days. Take with full glass of water. 60 tablet 01/23/2025 03/24/2025 escitalopram (Lexapro) 10 mg tablet Take 1 tablet (10 mg total) by mouth daily. 30 tablet 01/07/2025 9:28 AM CDT 01/07/2025 02/01/2025 hydrOXYzine (Atarax) 50 mg tablet Take 1 tablet (50 mg total) by mouth 4 (four) times a day as needed for anxiety. 60 tablet 01/23/2025 5:29 PM CDT 01/22/2025 02/01/2025 OXcarbazepine (TrileptaL) 600 mg tablet Take 1 tablet (600 mg total) by mouth 2 (two) times a day. 60 tablet 01/07/2025 9:28 AM CDT 01/07/2025 02/01/2025 documented as of this encounter Plan of Treatment Not on file documented as of this encounter Visit Diagnoses Not on filedocumented in this encounter Additional Health Concerns Assessment Noted Time PHQ-9 Depression Total Score: 13 025 5:34 PM CDT documented as of this encounter Care Teams Produce Buyer Relationship Specialty Start Date End Date Stefanie Donis APRN, C.N.P. [address] [place] [address] PCP - General Family Medicine 08/20/24 documented as of this encounter
--- OUTSIDE RECORDS SUMMARY | 2025-01-27 11:57 | XMS_ITS | Encounter Summary ---
Author Organization [facility] Address [address] [place] [address] Care Team Providers Care Ecommerce Manager Name Role Phone Stefanie Donis APRN C.N.P. Primary Care Provi amie Encounter Details Date Type Department Care Team (Late st Contact Info) Description 01/27/2025 11:57 AM CDT - 01/27/2025 11:59 PM CDT Emergency [facility] [address] [place] [address] Discharge Disposition: Home or Self [...] needed for daily living? 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 [address] [place] [address] PCP - General Family Medicine 08/20/24 documented as of this encounter
--- OUTSIDE RECORDS SUMMARY | 2025-02-07 21:27 | XMS_ITS | Encounter Summary ---
Author Organization [facility] Address [address] [place] [id number] Care Team Providers Care Dental Technology Advisor Name Role Phone Stefanie Donis APRN C.N.P. Primary Care Provi amie Reason for Visit * Reason Comments Black or Bloody Stool Encounter Details Date Type Department Care Team ([facility] st Contact Info) Description 02/07/2025 9:27 PM CDT - 02/07/2025 11:43 PM CDT Emergency [facility] Emergency Department [address] [place] [id number] Justen Bergman D.O. [address] [place] [phone] Other Esophagitis Without Bleeding (Primary Dx); Other Dysphagia Discharge Disposition: Home or Self Care Social [...] needed for daily living? Patient declined 12/26/2024 [facility] Utilities Answer Date Recorded In the past 12 months has e [employer], gas, oil, or water company threatened to shut off services in your home? Patient declined 12/26/2024 Depression Answer Date Recor ded PHQ-9 Total Score (max 27) 13 01/06 Housing Stability Answer Date Recorded What is your living situatio n today? I do not have a steady place to live (I am temporarily staying with others, in a hotel, in a nursing home, living outside on the street, on a beach, in a car, abandoned building, bus or train station, or in a park) 12/26/2024 Sex and Gender Information Value Date Recorded Sex Assigned at Not on file Legal Sex Male 10:34 PM [employer] Gender Identity Not on file Sexual Orientation Not on file documented as of this encounter Last Filed Vital Signs Vital Sign Reading Time Taken Comments Blood Pressure 137/96 02/07/2025 11:30 PM CDT Pulse 94 02/07/2025 9:31 PM CDT Temperature 36.8 C (98.2 F) 02/07/2025 9:31 PM CDT Respiratory Rate 18 02/07/2025 9:31 PM CDT Oxygen Saturation 95% 02/07/2025 9:31 PM CDT Inhaled Oxygen Concentration - - Weight 115 kg (253 lb 8.5 oz) 02/07/2025 9:28 PM CDT Height 172.7 cm (5' 8) 02/07/2025 9:28 PM CDT Body Mass Index 38.55 02/07/2025 9:28 PM CDT documented in this encounter Discharge Instructions * Discharge Instructions* Justen Bergman D.O. - 02/07/2025 11:17 PM CDT Use the medication as directed. GI will call you for your follow up appointment. documented in this encounter Medications at Time of Discharge atomoxetine (Strattera) 40 mg capsule Take 1 capsule (40 mg total) by mouth daily. 30 capsule 01/07/2025 9:28 AM CDT 01/07/2025 escitalopram (Lexapro) 10 mg tablet Take 1 tablet (10 mg total) by mouth daily. 30 tablet 02/02/2025 11:54 AM CDT 02/02/2025 hydrOXYzine (Atarax) 50 mg tablet Take 1 tablet (50 mg total) by mouth 4 (four) times a day as needed for anxiety. 60 tablet 02/04/2025 9:50 AM CDT 02/02/2025 OLANZapine (ZyPREXA) 15 mg tablet Take 1 tablet (15 mg total) by mouth 2 (two) times a day. 60 tablet 01/14/2025 9:08 AM CDT 01/10/2025 OXcarbazepine (TrileptaL) 600 mg tablet Take 1 tablet (600 mg total) by mouth 2 (two) times a day. 60 tablet 02/04/2025 9:50 AM CDT 02/02/2025 pantoprazole (Protonix) 40 mg EC tablet Take 1 tablet (40 mg total) by mouth daily before morning meal for 10 days. 10 tablet 02/07/2025 02/17/2025 semaglutide (Ozempic) 0.25 mg or 0.5 mg [...] glass of water. 60 tablet 01/23/2025 03/24/2025 documented as of this encounter ED Notes * Justen Bergman D.O. - 02/07/2025 9:48 PM CDT The patient verbally consented to an audio recording of their visit to assist with the completion of documentation. SUBJECTIVE CHIEF COMPLAINT/REASON FOR VISIT Black or Bloody Stool HISTORY OF PRESENT ILLNESS History of Present Illness Landon Lerma is a 39 year old male who presents with bloody stools and difficulty swallowing solid foods. Hematochezia - Intermittent bloody stools for approximately one year - Stools described as resembling 'a pie made of blood' with dark clotted blood - First episode of such a significant amount of blood today - No known history of diverticulitis or diverticulosis - No fever - No recent travel - Family history of colon cancer in two aunts - Missed scheduled colonoscopy in July due to fatigue from the preparation process Dysphagia and regurgitation - Difficulty swallowing solid foods for the past 1.5 to 2 weeks - Unable to keep solid food down; solid food 'wants to come back up' - Needs to reposition himself to prevent vomiting - No history of esophageal strictures, severe reflux disease, or ulcers - No prior endoscopic evaluations Weight changes and metabolic concerns - No weight loss despite inability to eat solid foods; instead, weight gain is present - Currently taking Ozempic, prescribed for weight gain concerns - Able to gain weight rapidly, such as 4-5 pounds after eating ice cream - Recent discussion regarding thyroid function; blood work performed, results unknown REVIEW OF SYSTEMS Bloody stool, vomiting, unable to swallow solids, reported weight gain OBJECTIVE Initial Vitals Temperature 02/07/25 2131 36.8 ??C Pulse Rate 02/07/25 2131 94 Heart Rate -- Resp Rate 09/06/25 2131 18 Blood Pressure 02/07/252132 135/70 SpO2 02/07/252130 95 % Pain Score 02/07/252132 5 - Moderate pain PHYSICAL EXAMINATION Physical Exam MEASUREMENTS: Weight- 254. ABDOMEN: Abdomen soft. No evidence of peritonitis ASSESSMENT/PLAN Medical Decision Making 39-year-old male with a family history of colon cancer presented with a year- long history of intermittent melena, recently described as dark clotted blood, and a two-week history of dysphagia with regurgitation of solid food. He reports weight gain despite reduced intake, no prior esophageal scope,and no history of diverticulitis, diverticulosis, or severe reflux disease. Abdominal exam was soft, and there was no fever or recent travel. He missed a previously scheduled colonoscopy and has not had prior GI evaluation for these symptoms. Differential diagnosis includes, but is not limited to: - Esophageal stricture or motility disorder: Dysphagia with regurgitation of solids and inability to tolerate solid food raises concern for esophageal stricture or a motility disorder, especially in the absence of prior esophageal evaluation or severe reflux history. - Lower gastrointestinal bleeding (possible malignancy or other colonic pathology): Chronic intermittent melena with a family history of colon cancer and missed colonoscopy raises concern for lower GI bleeding from malignancy or other colonic pathology; absence of diverticulitis or diverticulosis noted. Dysphagia with regurgitation of solid food and chronic intermittent melena - Discussed potential need for hospitalization if unable to eat - Consult Gastroenterology for esophagogastroduodenoscopy (EGD) and colonoscopy ED Course as of 02/08/25 1338 Sat Feb 07, 2025 2221 Thyroid Function [place] 2314 CTs are reassuring. He has some thickness to the esophagus I have concerns that he has had ongoing reflux disease, possibly ulcerations. No previous diagnosis of H pylori but given this will plan for an outpatient endoscopy. I will start him on a proton pump inhibitor as well. Final Diagnoses: as of 02/08/25 1338 Other Esophagitis Without Bleeding Other Dysphagia Justen Bergman D.O. 02/08/25 1338 * Alexander Foreman, RPaolaN. - 02/07/2025 9:31 PM CDT Pt presents to ED c/o dark stools x1 week. Endorses RLQ pain and N/V. States when I eat it feels like the food can't go down all the way. Not on thinners. Alexander Foreman, RPaolaN. 02/07/252132 documented in this encounter Plan of Treatment Not on file documented as of this encounter Procedures Procedure Name Priority Date/Time Associated Diagnosis Comments CT ABDOMEN PELVIS WITH IV CONTRAST RAD - Semiurgent (Fast; most ED patients; some inpatients) 02/07/2025 10:[address] CHEST WITH IV CONTRAST RAD - Semiurgent (Fast; most ED patients; some inpatients) 02/07/2025 10:24 PM CDT PROTHROMBIN TIME (PT), P STAT 02/07/2025 9:44 PM CDT TYPE AND SCREEN STAT 02/07/2025 9:44 PM CDT LACTATE, B/P STAT 02/07/2025 9:44 PM CDT CBC WITH DIFFERENTIAL, B STAT 02/07/2025 9:43 PM CDT BASIC METABOLIC PANEL, S/P STAT 02/07/2025 9:43 PM CDT documented in this encounter Results * CT Abdomen Pelvis with IV Contrast (02/07/2025 10:24 PM CDT) Anatomical Region Laterality Modality Abdomen, Pelvis, Abdominal R ST LOS, Abdominal ARZ LOS, Abdominal FLA LOS N/A Computed Tomograp hy, Computed Tomography 02/07/2025 10:1 7 PM CDT Impressions 02/08/2025 7:50 AM CDT 1. Mildly patulous esophagus with mild wall thickening and surrounding fat stranding at the gastroesophageal junction, could be due to esophagitis. Endoscopic evaluation beneficial for further evaluation. 2. No evidence of acute bleed in the abdomen or pelvis. Narrative 02/08/2025 7:50 AM CDT EXAM: CT CHEST WITH IV CONTRAST, CT ABDOMEN PELVIS WITH IV CONTRAST COMPARISON: Radiograph performed 08/21/2024. FINDINGS: CHEST: Patent central airways. Mild lower lobe predominant bronchial wall thickening. Scattered endobronchial mucous plugging. Mild centrilobular emphysema. Extensive bilateral calcified pulmonary granulomas. Lower lobe atelectasis/scarring. No pulmonary consolidation, pleural effusion, pneumothorax. Calcified mediastinal and hilar lymph nodes, as well as a retrocrural lymph node. No thoracic lymphadenopathy by size criteria. No pericardial effusion. No acute osseous abnormalities. Mild degenerative spondylotic changes. ABDOMEN/PELVIS: Mildly patulous esophagus with mild wall thickening of the distal esophagus is near the gastroesophageal junction. There is also subtle soft tissue fat stranding surrounding the GEJ with prominent subcentimeter lymph nodes. No evidence of contrast extravasation suggestive of active bleeding. No abdominopelvic fluid collections. Normal appearance of the rectum, terminal ileum, appendix. No bowel dilatation and mural thickening. No worrisome hepatic lesions. Normal appearance of the gallbladder, pancreas, spleen, adrenal glands. Right renal cyst. Symmetric nephrograms. No hydroureteronephrosis. Normal bladder. No abdominopelvic lymphadenopathy or free fluid. Patent aortobiiliac portal venous vasculature. Postoperative changes of the right femur. No acute osseous abnormalities. Mild degenerative spondylotic changes. Procedure Note Francine Huertas M.D. - 02/08/2025 EXAM: CT CHEST WITH IV CONTRAST, CT ABDOMEN PELVIS WITH IV CONTRAST COMPARISON: Radiograph performed 08/21/2024. FINDINGS: CHEST: Patent central airways. Mild lower lobe predominant bronchial wallthickening. Scattered endobronchial mucous plugging. Mild centrilobularemphysema. Extensive bilateral calcified pulmonary granulomas. Lower lobeatelectasis/scarring. No pulmonary consolidation, pleural effusion, pneumothorax. Calcified mediastinal and hilar lymph nodes, as well as a retrocrurallymph node. No thoracic lymphadenopathy by size criteria. No pericardialeffusion. No acute osseous abnormalities. Mild degenerative spondyloticchanges. ABDOMEN/PELVIS: Mildly patulous esophagus with mild wall thickening of the distalesophagus is near the gastroesophageal junction. There is also subtle softtissue fat stranding surrounding the GEJ with prominent subcentimeterlymph nodes. No evidence of contrast extravasation suggestive of active bleeding. Noabdominopelvic fluid collections. Normal appearance of the rectum,terminal ileum, appendix. No bowel dilatation and mural thickening. No worrisome hepatic lesions. Normal appearance of the gallbladder,pancreas, spleen, adrenal glands. Right renal cyst. Symmetric nephrograms.No hydroureteronephrosis. Normal bladder. No abdominopelviclymphadenopathy or free fluid. Patent aortobiiliac portal venous vasculature. Postoperative changes of the right femur. Noacute osseous abnormalities. Mild degenerative spondylotic changes. IMPRESSION: 1. Mildly patulous esophagus with mild wall thickening and surrounding fatstranding at the gastroesophageal junction, could be due to esophagitis.Endoscopic evaluation beneficial for further evaluation. 2. No evidence of acute bleed in the abdomen or pelvis. Justen Bergman D.O. [facility] CT PROCEDURES Final Result * CT Chest with IV Contrast (02/07/2025 10:24 PM CDT) Anatomical Region Laterality Modality Chest, Thoracic RST LOS, Tho racic ARZ LOS, Thoracic ARZ LOS, Thoracic FLA LOS N/A Computed Tomography, Compute d Tomography 02/07/2025 10:2 2 PM CDT Impressions 02/08/2025 7:50 AM CDT 1. Mildly patulous esophagus with mild wall thickening and surrounding fat stranding at the gastroesophageal junction, could be due to esophagitis. Endoscopic evaluation beneficial for further evaluation. 2. No evidence of acute bleed in the abdomen or pelvis. Narrative 02/08/2025 7:50 AM CDT EXAM: CT CHEST WITH IV CONTRAST, CT ABDOMEN PELVIS WITH IV CONTRAST COMPARISON: Radiograph performed 08/21/2024. FINDINGS: CHEST: Patent central airways. Mild lower lobe predominant bronchial wall thickening. Scattered endobronchial mucous plugging. Mild centrilobular emphysema. Extensive bilateral calcified pulmonary granulomas. Lower lobe atelectasis/scarring. No pulmonary consolidation, pleural effusion, pneumothorax. Calcified mediastinal and hilar lymph nodes, as well as a retrocrural lymph node. No thoracic lymphadenopathy by size criteria. No pericardial effusion. No acute osseous abnormalities. Mild degenerative spondylotic changes. ABDOMEN/PELVIS: Mildly patulous esophagus with mild wall thickening of the distal esophagus is near the gastroesophageal junction. There is also subtle soft tissue fat stranding surrounding the GEJ with prominent subcentimeter lymph nodes. No evidence of contrast extravasation suggestive of active bleeding. No abdominopelvic fluid collections. Normal appearance of the rectum, terminal ileum, appendix. No bowel dilatation and mural thickening. No worrisome hepatic lesions. Normal appearance of the gallbladder, pancreas, spleen, adrenal glands. Right renal cyst. Symmetric nephrograms. No hydroureteronephrosis. Normal bladder. No abdominopelvic lymphadenopathy or free fluid. Patent aortobiiliac portal venous vasculature. Postoperative changes of the right femur. No acute osseous abnormalities. Mild degenerative spondylotic changes. Procedure Note Francine Huertas M.D. - 02/08/2025 EXAM: CT CHEST WITH IV CONTRAST, CT ABDOMEN PELVIS WITH IV CONTRAST COMPARISON: Radiograph performed 08/21/2024. FINDINGS: CHEST: Patent central airways. Mild lower lobe predominant bronchial wallthickening. Scattered endobronchial mucous plugging. Mild centrilobularemphysema. Extensive bilateral calcified pulmonary granulomas. Lower lobeatelectasis/scarring. No pulmonary consolidation, pleural effusion, pneumothorax. Calcified mediastinal and hilar lymph nodes, as well as a retrocrurallymph node. No thoracic lymphadenopathy by size criteria. No pericardialeffusion. No acute osseous abnormalities. Mild degenerative spondyloticchanges. ABDOMEN/PELVIS: Mildly patulous esophagus with mild wall thickening of the distalesophagus is near the gastroesophageal junction. There is also subtle softtissue fat stranding surrounding the GEJ with prominent subcentimeterlymph nodes. No evidence of contrast extravasation suggestive of active bleeding. Noabdominopelvic fluid collections. Normal appearance of the rectum,terminal ileum, appendix. No bowel dilatation and mural thickening. No worrisome hepatic lesions. Normal appearance of the gallbladder,pancreas, spleen, adrenal glands. Right renal cyst. Symmetric nephrograms.No hydroureteronephrosis. Normal bladder. No abdominopelviclymphadenopathy or free fluid. Patent aortobiiliac portal venous vasculature. Postoperative changes of the right femur. Noacute osseous abnormalities. Mild degenerative spondylotic changes. IMPRESSION: 1. Mildly patulous esophagus with mild wall thickening and surrounding fatstranding at the gastroesophageal junction, could be due to esophagitis.Endoscopic evaluation beneficial for further evaluation. 2. No evidence of acute bleed in the abdomen or pelvis. us Justen Bergman D.O. IMG CT PROCEDURES Final Result * Type and Screen (with Reflex Antibody ID) (02/07/2025 9:44 PM CDT) Pathologist [facility] ABORh A Pos Not applicable 02/07/2025 10:16 PM CDT STRM Antibody Screen Negative Negative 02/07/2025 10:32 PM CDT STRM Type & Screen Expiration 02/10/2025 23:59 02/07/2025 10:16 PM CDT STRM Testing Location [place] DEFAULT 02/07/2025 9:52 PM CDT STRM Blood (Blood, Venous) 02/07/2025 9:44 PM CDT 02/07/2025 9:52 PM CDT Justen Bergman D.O. LAB BLOOD BANK TEST ORD ERABLES Final Result Performing Organization Address City/[facility]/ZIP Co de Phone Number [facility] [address] STRM [facility] [address] [place] [address] * Lactate (02/07/2025 9:44 PM CDT) [facility] Lactate, P 2.1 0.5 - 2.2 mmol/L 02/07/2025 10:03 PM CDT STMA Blood (Blood, Venous) 02/07/2025 9:44 PM CDT 02/07/2025 9:49 PM CDT Justen Bergman D.O. LAB BLOOD NON ADD-ON Fi nal Result [facility] [address] [place] [address], [facility] STMA [facility] [address] [place] [address] * Prothrombin Time (PT) (02/07/2025 9:44 PM CDT) Pathologist [facility] Prothrombin Time, P 10.8 9.4 - 12.5 sec 02/07/2025 9:55 PM CDT STMA INR 1.0 0.9 - 1.1 02/07/2025 9:55 PM CDT STMA Comment: ----ADDITIONAL INFORMATION---- Standard intensity warfarin therapeutic range: 2.0 to 3.0 High intensity warfarin therapeutic range: 2.5 to 3.5 Blood (Blood, Venous) 02/07/2025 9:44 PM CDT 02/07/2025 9:49 PM CDT Justen Bergman D.O. LAB BLOOD ADD-ON Final Result [facility] [address] [place] [address], [facility] [address] [place] [address] * (ABNORMAL) CBC with Differential, Blood (02/07/2025 9:43 PM CDT) Pathologist [facility] Hemoglobin 14.3 13.2 - 16.6 g/dL 02/07/2025 9:52 PM CDT STMA Hematocrit 43.1 38.3 - 48.6 % 02/07/2025 9:52 PM CDT [facility]MA Erythrocytes 4.98 4.35 - 5.65 x10(12)/L 02/07/2025 9:52 PM CDT [facility] MCV 86.5 78.2 - 97.9 fL 02/07/2025 9:52 PM CDT [facility] RBC Distrib Width 13.0 11.8 - 14.5 % 02/07/2025 9:52 PM CDT [facility] Platelet Count 346(H) 135 - 317 x10(9)/L 02/07/2025 9:52 PM CDT [facility] Leukocytes 9.0 3.4 - 9.6 x10(9)/L 02/07/2025 9:52 PM CDT [facility] Neutrophils 5.46 1.56 - 6.45 x10(9)/L 02/07/2025 9:51 PM CDT [facility] Lymphocytes 2.21 0.95 - 3.07 x10(9)/L 02/07/2025 9:52 PM CDT [facility] Monocytes 1.05(H) 0.26 - 0.81 x10(9)/L 02/07/2025 9:52 PM CDT [facility] Eosinophils 0.21 0.03 - 0.48 x10(9)/L 02/07/2025 9:52 PM CDT [facility] Basophils 0.07 0.01 - 0.08 x10(9)/L 02/07/2025 9:52 PM CDT STMA Blood (Blood, Venous) 02/07/2025 9:43 PM CDT 02/07/2025 9:50 PM CDT us Justen Bergman D.O. LAB BLOOD ADD-ON Final Result [facility] [address] [place] [address], [facility] STMA [facility] [address] [place] [address] * (ABNORMAL) Basic Metabolic Panel (02/07/2025 9:43 PM CDT) Potassium, P 3.9 3.6 - 5.2 mmol/L 02/07/2025 10:05 PM CDT STMA Sodium, P 135 135 - 145 mmol/L 02/07/2025 10:05 PM CDT STMA Chloride, P 101 98 - 107 mmol/L 02/07/2025 10:05 PM CDT STMA Bicarbonate, P 19(L) 22 - 29 mmol/L 02/07/2025 10:05 PM CDT [facility] Anion Gap, P 15 7 - 15 02/07/2025 10:05 PM CDT [facility] BUN (Blood Urea Nitrogen), P 19 8 - 24 mg/dL 02/07/2025 10:05 PM CDT STMA Creatinine 0.95 0.74 - 1.35 mg/dL 02/07/2025 10:05 PM CDT STMA Estimated GFR (eGFR) >90 >=60 mL/min/BSA 02/07/2025 10:05 PM CDT STMA Comment: Estimated GFR calculated using the 2020 CKD_EPI creatinine equation. Calcium, Total, P 9.4 8.6 - 10.0 mg/dL 02/07/2025 10:05 PM CDT STMA Glucose, P 118 70 - 140 mg/dL 02/07/2025 10:05 PM CDT ST[facility] Blood (Blood, Venous) 02/07/2025 9:43 PM CDT 02/07/2025 9:49 PM CDT us Justen Bergman D.O. LAB BLOOD ADD-ON Final Result [facility] [address] [place] [address], [facility] [address] [place] [address] documented in this encounter Visit Diagnoses Diagnosis Other Esophagitis Without Bleeding- Primary Other Dysphagia documented in this encounter Administered Medications Inactive Administered Medications - up to 3 most recent administrations Medication Order MAR Action Action Date Dose Rate Site iohexoL 350 mg iodine/mL solution 1-200 mL (Omnipaque) 1-200 mL, intravenous, Once in imaging, contrast, Starting on 02/07/25 at 2210, For 1 dose, Imaging Protocol Orders, Dose per Radiant Medication Guidelines Given 02/07/2025 10:16 PM CDT 115 mL NaCl 0.9 % bolus 1,000 mL 1,000 mL, intravenous, at 1,000 mL/hr, Administer over 1 Hours, Once, On 02/07/25 at 2135, For 1 dose, If patient is actively bleeding or has a systolic blood pressure less than 90 mmHg. New Bag 02/07/2025 9:49 PM CDT 1,000 mL 1000 mL/hr ondansetron (PF) injection 4 mg (Zofran) 4 mg, intravenous, Once as needed, nausea, vomiting, Starting on 02/07/25 at 2134, For 1 dose, Select antiemetic if IV access obtained. ondansetron ODT disintegrating tablet 4 mg (Zofran-ODT) 4 mg, oral, Once as needed, nausea, vomiting, Starting on 02/07/25 at 2134, For 1 dose, Select antiemetic if no IV access. When splitting ODT at bedside, handle with gloves and a pill splitter to prevent moisture contact. sodium chloride (PF) 0.9 % injection 1-100 mL 1-100 mL, intravenous, Once, On 02/07/25 at 2211, For 1 dose, Imaging Protocol Orders, Dose per Radiant Medication Guidelines Given 02/07/2025 10:16 PM CDT 50 mL sodium chloride 0.9 % injection 10 mL 10 mL, intravenous, As needed, line care, Starting on 02/07/25 at 2134, Peripheral Intravenous Catheter and Rapid Infusion Catheter, prior to blood sampling, post blood transfusion or post blood sampling sodium chloride 0.9 % injection 3 mL 3 mL, intravenous, As needed, line care, Starting on 02/07/25 at 2134, Prior to and following infusion and between multiple consecutive infusions: sodium chloride 0.9 % injection sodium chloride 0.9 % injection 3 mL 3 mL, intravenous, Every 12 hours scheduled, First dose on 02/08/25 at 0900, Peripheral Intravenous Catheter and Rapid Infusion Catheter, when no infusion to maintain patency documented in this encounter Active and Recently Administered Medications Times are shown in CDT. Scheduled Medication Order 02/05/2025 02/06/2025 02/07/2025 NaCl 0.9 % bolus 1,000 mL (COMPLETED) 1,000 mL, intravenous, at 1,000 mL/hr, Administer over 1 Hours, Once, On 02/07/25 at 2135, For 1 dose, If patient is actively bleeding or has a systolic blood pressure less than 90 mmHg. 2148 (New Bag - Prov ider: Amparo Edwards R.N.)2341 (Stopped - Provider: Amparo Edwards R.N.) sodium chloride (PF) 0.9 % injection 1-100 mL (COMPLETED) 1-100 mL, intravenous, Once, On 02/07/25 at 2211, For 1 dose, Imaging Protocol Orders, Dose per Radiant Medication Guidelines 2216 (Given - Provid er: Nilay Richardson.P.Jordy., R.N.) sodium chloride 0.9 % injection 3 mL 3 mL, intravenous, Every 12 hours scheduled, First dose on 02/08/25 at 0900, Peripheral Intravenous Catheter and Rapid Infusion Catheter, when no infusion to maintain patency PRN Medication Order 02/05/2025 02/06/2025 02/07/2025 iohexoL 350 mg iodine/mL solution 1-200 mL (Omnipaque) (COMPLETED) 1-200 mL, intravenous, Once in imaging, contrast, Starting on 02/07/25 at 2210, For 1 dose, Imaging Protocol Orders, Dose per Radiant Medication Guidelines 2216 (Given - Provid er: Nilay Richardson.P.H., R.N.) ondansetron (PF) injection 4 mg (Zofran)(Linked Group 1) 4 mg, intravenous, Once as needed, nausea, vomiting, Starting on 02/07/25 at 2134, For 1 dose, Select antiemetic if IV access obtained. ondansetron ODT disintegrating tablet 4 mg (Zofran-ODT)(Linked Group 1) 4 mg, oral, Once as needed, nausea, vomiting, Starting on 02/07/25 at 2134, For 1 dose, Select antiemetic if no IV access. When splitting ODT at bedside, handle with gloves and a pill splitter to prevent moisture contact. sodium chloride 0.9 % injection 10 mL 10 mL, intravenous, As needed, line care, Starting on 02/07/25 at 2134, Peripheral Intravenous Catheter and Rapid Infusion Catheter, prior to blood sampling, post blood transfusion or post blood sampling sodium chloride 0.9 % injection 3 mL 3 mL, intravenous, As needed, line care, Starting on 02/07/25 at 2134, Prior to and following infusion and between multiple consecutive infusions: sodium chloride 0.9 % injection Linked Groups Order Group 1: ondansetron ODT disintegrating tablet 4 mg (Zofran-ODT)Jump to med 4 mg, oral, Once as needed, nausea, vomiting, Starting on 02/07/25 at 2134, For 1 dose, Select antiemetic if no IV access. When splitting ODT at bedside, handle with gloves and a pill splitter to prevent moisture contact. Or ondansetron (PF) injection 4 mg (Zofran)Jump to med 4 mg, intravenous, Once as needed, nausea, vomiting, Starting on 02/07/25 at 2134, For 1 dose, Select antiemetic if IV access obtained. documented in this encounter Additional Health Concerns Assessment Noted Time PHQ-9 Depression Total Score: 13 025 5:34 PM CDT documented as of this encounter Care Teams Dental Technology Advisor Relationship Specialty Start Date End Date Stefanie Donis APRN, C.N.P. [address] [phone] PCP - General Family Medicine 08/20/24 documented as of this encounter
--- OUTSIDE RECORDS SUMMARY | 2025-02-07 21:27 | XMS_ITS | Encounter Summary ---
Author Organization [facility] Address [address] [place] [address] Care Team Providers Care Sewage Disposal Engineer Name Role Phone Stefanie Donis APRN C.N.P. Primary Care Provi amie Reason for Visit * Reason Comments Black or Bloody Stool Encounter Details Date Type Department Care Team ([facility] st Contact Info) Description 02/07/2025 9:27 PM CDT - 02/07/2025 11:43 PM CDT Emergency [facility] Emergency Department [address] [place] [phone] Justen Bergman D.O. [address] [place] [phone] Other Esophagitis Without Bleeding (Primary Dx); Other [...] needed for daily living? Patient declined 12/26/[address] [facility] Utilities Answer Date Recorded In the past 12 months has e [employer], gas, oil, or water company threatened to shut off services in your home? Patient declined 12/26/2024 Depression Answer Date Recor ded PHQ-9 Total Score (max 27) 13 01/06 Housing Stability Answer Date Recorded What is your living situatio n today? 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 He has some [...] the abdomen or pelvis. Justen Bergman D.O. [facility] CT PROCEDURES Final Result * CT Chest [...] Antibody ID) (02/07/2025 9:44 PM CDT) Pathologist [facility] ABORh A Pos Not applicable 02/07/2025 10:16 PM CDT STRM Antibody Screen Negative Negative 02/07/2025 10:32 PM CDT STRM Type & Screen Expiration 02/10/2025 23:59 02/07/2025 10:16 PM CDT STRM Testing Location [place] DEFAULT 02/07/2025 9:52 PM CDT STRM Blood (Blood, Venous) 02/07/2025 9:44 PM CDT 02/07/2025 9:52 PM CDT Justen Bergman D.O. LAB BLOOD BANK TEST ORD ERABLES Final Result Performing Organization Address City/[facility]/ZIP Co de Phone Number [facility] [address] STRM [facility] [address] [place] [address] * Lactate (02/07/2025 9:44 PM CDT) [facility] Lactate, P 2.1 0.5 - 2.2 mmol/L 02/07/2025 10:03 PM CDT [facility] Blood (Blood, Venous) 02/07/2025 9:44 PM CDT 02/07/2025 9:49 PM CDT Justen Bergman D.O. LAB BLOOD NON ADD-ON Fi nal Result [facility] [address] [place] [address], [facility] STMA [facility] [address] [place] [address] * Prothrombin Time (PT) (02/07/2025 9:44 PM CDT) Pathologist [facility] Prothrombin Time, P 10.8 9.4 - 12.5 sec 02/07/2025 9:55 PM CDT [facility] INR 1.0 0.9 - 1.1 02/07/2025 9:55 PM CDT [facility] Comment: ----ADDITIONAL INFORMATION---- Standard intensity warfarin therapeutic range: 2.0 to 3.0 High intensity warfarin therapeutic range: 2.5 to 3.5 Blood (Blood, Venous) 02/07/2025 9:44 PM CDT 02/07/2025 9:49 PM CDT Justen Bergman D.O. LAB BLOOD ADD-ON Final Result [facility] [address] [place] [address], [facility] [address] [place] [address] * (ABNORMAL) CBC with Differential, Blood (02/07/2025 9:43 PM CDT) Pathologist [facility] Hemoglobin 14.3 13.2 - 16.6 g/dL 02/07/2025 [...] Bergman D.O. LAB BLOOD ADD-ON Final Result [facility] [address] [place] [address], [facility] STMA [facility] [address] [place] [address] * (ABNORMAL) Basic Metabolic Panel (02/07/2025 9:43 [...] Bergman D.O. LAB BLOOD ADD-ON Final Result [facility] [address] [place] [address], [facility] [address] [place] [address] documented in this encounter Visit Diagnoses Diagnosis [...] documented as of this encounter Care Teams Sewage Disposal Engineer Relationship Specialty Start Date End Date Stefanie Donis APRN, C.N.P. [address] [phone] PCP - General Family Medicine 08/20/24 documented as of this encounter
--- NOTE | 2025-02-10 | CRLHL7_ITS ---
For Patients: As a result of the Cures Act, medical imaging exams and procedure reports are released immediately into your electronic medical record. You may view this report before your referring provider. If you have questions, please contact your health care provider. INDICATION: Chest pain, post cardiac arrest. TECHNIQUE: Chest 1 view. COMPARISON: 11/17/2009. FINDINGS: Cardiovascular and mediastinum: Cardiomediastinal silhouette is within normal limits. Lungs and pleural spaces: Again demonstrated multiple bilateral calcified granulomas. No consolidation. No pleural effusions or pneumothorax. Bones and soft tissues: No significant findings. IMPRESSION: No evidence of acute pulmonary process. Dictated by Casey Mai MD @ 02/11/2025 12:11:52 AM (Electronically Signed)
[2025-02-10 23:08] VITALS: BP 128/105; PULSE 98; RESP 24; TEMP 36.4; O2SAT 92; BMI 36.9
--- OUTSIDE RECORDS SUMMARY | 2025-02-10 23:10 | XMS_ITS | Clinical Summary ---
Author Organization [facility] Address [address] [place] [address] Care Team Providers Care Physical Science Professor Name Role Phone [facility] Primary Care Provider Allergies Active Allergy Reactions Criticality Noted Date Comments Cefazolin 12/12/2015 Medications * This document contains information received from the source organization and may not represent a complete record from that organization. 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 No 10/20/2024 Within the past 12 months, d id the food you bought just not last and you didn t have money to get more? No 10/20/2024 Housing Stability Answer Date Recorded Do you have housing? (Housin g is defined as stable permanent housing and does not include staying outside in a car, in a tent, in an abandoned building, in an overnight prison, or couch-surfing.) Yes 10/20/2024 Are you worried about losing your housing? No 10/20/2024 Financial Resource Strain Answer Date R ecorded Within the past 12 months, h ave you or your family members you live with been unable to get utilities (heat, electricity) when it was really needed? No 10/20/2024 Transportation Needs Answer Date Record ed Within the past 12 months, h as lack of transportation kept you from medical appointments, getting your medicines, non-medical meetings or appointments, work, or from getting things that you need? No 10/20/2024 Interpersonal Safety Answer Date Record ed Do you feel physically and e motionally safe where you currently live? Yes 10/20/2024 Within the past 12 months, h ave you been hit, slapped, kicked or otherwise physically hurt by someone? No 10/20/2024 Within the past 12 months, h ave you been humiliated or emotionally abused in other ways by your partner or ex-partner? No 10/20/2024 Sex and Gender Information Value Date Recorded Sex Assigned at Not on file Legal Sex Male 3:10 AM SAS ARCHITECT Gender Identity Not on file Sexual Orientation Not on file Last Filed Vital Signs Vital Sign Reading Time Taken Comments Blood Pressure 108/67 10/22/2024 8:54 AM CDT Pulse 65 10/22/2024 8:54 AM CDT Temperature 36.7 C (98 F) 10/22/2024 8:54 AM CDT Respiratory Rate 16 10/22/2024 8:54 AM CDT Oxygen Saturation 97% 10/22/2024 8:54 AM CDT Inhaled Oxygen Concentration - - Weight 99.8 kg (220 lb) 07/15/2024 7:00 AM SAS ARCHITECT Height 172.7 cm (5' 8) 07/09/2024 8:01 PM SAS ARCHITECT Body Mass Index 33.45 07/09/2024 8:01 PM SAS ARCHITECT Plan of Treatment Health Maintenance Due Date Last Done Comments ADVANCE CARE PLANNING 1983 ANNUAL REVIEW OF HM ORDERS 1983 HEPATITIS B VACCINE (1 of 3 - 19+ 3-dose series) 2002 PNEUMOCOCCAL VACCINE: PEDIATRICS (0 to 5 YEARS) AND AT-RISK PATIENTS (6 to 49 YEARS) (2 of 2 - PCV) 08/22/2014 08/22/2013 HPV VACCINE (2 - 3-dose SCDM series) 07/06/2022 06/08/2022 MEDICARE ANNUAL WELLNESS VISIT 09/29/2023 09/28/2022 COVID-19 VACCINE ( - season) 2025 INFLUENZA VACCINE (#1) 2025 , 03/14/2015, 08/22/2013, Additional history exists LIPID 07/10/2025 07/10/2024, 10/18/2023 DIABETES SCREENING 10/21/2027 10/20/2024, 0 07/10/2024, 07/10/2024, Additional history exists ZOSTER VACCINE (1 of 2) 2033 DTAP/TDAP/TD VACCINE (4 - Td or Tdap) 11/14/2033 11/15/2023, 02/22/2015, 02/13/2007 HEPATITIS C SCREENING Completed 09/28/2022, 014 HIV SCREENING Completed 09/28/2022 MENINGITIS VACCINE Aged Out No longer eligible based on patient's age to complete this topic Procedures Procedure Name Priority Date/Time Associated Diagnosis Comments COMPREHENSIVE METABOLIC PANEL STAT 10/20/2024 2:50 AM CDT LIPID PROFILE Routine 07/10/2024 7:54 AM SAS ARCHITECT HEPATITIS C ANTIBODY Routine 07/03/2013 4:59 PM SAS ARCHITECT from Last 3 Months or Most Recently Relevant to Health Maintenance Results * Comprehensive metabolic panel (10/20/2024 2:50 AM CDT) Sodium 138 135 - 145 mmol/L 10/20/2024 3:12 AM CDT [facility] Potassium 4.4 3.4 - 5.3 mmol/L 10/20/2024 3:12 AM CDT [facility] Carbon Dioxide (CO2) 24 22 - 29 mmol/L 10/20/2024 3:12 AM CDT [facility] Anion Gap 12 7 - 15 mmol/L 10/20/2024 3:12 AM CDT [facility] Urea Nitrogen 12.9 6.0 - 20.0 mg/dL 10/20/2024 3:12 AM CDT [facility] Creatinine 1.04 0.67 - 1.17 mg/dL 10/20/2024 3:12 AM CDT [facility] GFR Estimate >90 >60 mL/min/1.7 3m2 10/20/2024 3:12 AM CDT [facility] Comment:eGFR calculated usin 2020 CKD-EPI equation. Calcium 9.4 8.8 - 10.4 mg/dL 10/20/2024 3:12 AM CDT [facility] Chloride 102 98 - 107 mmol/L 10/20/2024 3:12 AM CDT [facility] Glucose 91 70 - 99 mg/dL 10/20/2024 3:12 AM CDT [facility] Alkaline Phosphatase 74 40 - 150 U/L 10/20/2024 3:12 AM CDT [facility] AST 24 0 - 45 U/L 10/20/2024 3:12 AM CDT [facility] ALT 18 0 - 70 U/L 10/20/2024 3:12 AM CDT [facility] Protein Total 7.5 6.4 - 8.3 g/dL 10/20/2024 3:12 AM CDT [facility] Albumin 4.1 3.5 - 5.2 g/dL 10/20/2024 3:12 AM CDT [facility] Bilirubin Total <0.2 <=1.2 mg/dL 10/20/2024 3:12 AM CDT [facility] Blood STRUCTURE OF RIGHT UPPER LIMB / Unknown Venipuncture / Unknown 10/20/2024 2:50 AM CDT 10/20/2024 2:53 AM CDT Kailey Jarquin MD LAB - BLOOD ORDERABLES F inal Result [facility] Acute Care Lab [address] Room [address] [place] [id number] * (ABNORMAL) Lipid panel (07/10/2024 7:54 AM SAS ARCHITECT) Cholesterol 194 <200 mg/dL 07/10/2024 9:52 AM SAS ARCHITECT [facility] Triglycerides 598(H) <150 mg/dL 07/10/2024 9:52 AM SAS ARCHITECT [facility] Direct Measure HDL 39(L) >=40 mg/dL 07/10/2024 9:52 AM SAS ARCHITECT [facility] LDL Cholesterol Calculated 07/10/2024 9:52 AM SAS ARCHITECT [facility] Comment:Cannot estimate LDL when triglyceride exceeds 400 mg/dL Non HDL Cholesterol 155(H) <130 mg/dL 07/10/2024 9:52 AM SAS ARCHITECT [facility] Blood STRUCTURE OF RIGHT UPPER LIMB / Unknown Venipuncture / Unknown 07/10/2024 7:54 AM SAS ARCHITECT 07/10/2024 8:52 AM SAS ARCHITECT Narrative [facility] - 07/10/2024 9:52 AM SAS ARCHITECT Cholesterol Desirable: < 200 mg/dL Borderline High: [...] 219 mg/dL Very High: >= 220 mg/dL us Jonathan Johnson MD LAB - BLOOD ORDERABLES F inal Result [facility] Acute Care Lab [address] [place] [address], [address] * Hepatitis C antibody (07/03/2013 4:59 PM SAS ARCHITECT) Hepatitis C Antibody Negative [facility]G [facility] Blood specimen (specimen) 07/03/2013 4:59 PM SAS ARCHITECT 07/03/2013 5:00 PM SAS ARCHITECT us Cinthia Arias PA-C LAB - BLOOD ORDERAB LES Final Result [facility] [address] from Last 3 Months or Most Recently Relevant to Health Maintenance Insurance MEDICARE MEDICARE MEDICARE Advance Directives For more information, please contact: [phone] * Full Code (Latest Code Status on File) Date Activated Date Inactivated Comments 10/20/2024 5:34 AM 10/22/2024 2:45 PM All basic an d advanced life-sustaining interventions are performed as appropriate Question Answer Comments Code status determined by: Discussion with patie nt/ legal decision maker * Full Code Date Activated Date Inactivated Comments 07/09/2024 7:59 [...] Comments 09/20/2013 12:59 PM 11/07/2013 4:01 PM Care Teams Physical Science Professor Relationship Specialty Start Date End Date [facility] - [address] [address] PCP - General Internal Medicine 10/15/23
--- OUTSIDE RECORDS SUMMARY | 2025-02-10 23:10 | XMS_ITS | Encounter Summary ---
Author Organization [facility] Address [address] [place] [address] Care Team Providers Care Trade Mark Examiner Name Role Phone [facility] Primary Care Provider Encounter Details Date Type Department Care Team (Late st Contact Info) Description 01/08/2024 [facility] [address] [place] [address] Millie Dennis Social History Tobacco [...] on file Legal Sex Male 3:10 AM OUTSIDE PLANT FIELD ENGINEER Gender Identity Not on file Sexual Orientation Not on file documented as of this encounter Plan of Treatment Not on file documented as of this encounter Visit Diagnoses Not on filedocumented in this encounter Additional Health Concerns Infection Onset Date Last Indicated Resolved Time COVID-19 05/10/2024 05/10/2024 05/21/2024 11:4 1 PM OUTSIDE PLANT FIELD ENGINEER documented as of this encounter Care Teams Trade Mark Examiner Relationship Specialty Start Date End Date Clinic - [place], [address] [address] PCP - General Internal Medicine 10/15/23 documented as of this encounter
--- OUTSIDE RECORDS SUMMARY | 2025-02-10 23:10 | XMS_ITS | Encounter Summary ---
Author Organization [facility] Address [address] [place] [address]. [place] [address] Care Team Providers Care Lead Printer Name Role Phone Clinic - [facility] Primary Care Provider Reason for Visit * Reason Onset Date Comments MH/CD Inpatient 07/08/2024 Encounter Details Date Type Department Care Team ([facility] st Contact Info) Description 07/08/2024 Telephone [facility] Behavioral Health Intake [address] [place] [address] Generic, Behavioral Intake, MH/CD Inpatient [...] on file Legal Sex Male 3:10 AM DEBONER Gender Identity Not on file Sexual Orientation Not on file documented as of this encounter Functional Status documented as of this encounter Miscellaneous Notes * Telephone Encounter - [place]Josuechristian Mclaughlin - 07/08/2024 7:19 PM CST R: [facility] Access Inpatient Bed Call Log 07/08/2024 @3:11 PM: Intake has called facilities that have not updated their bed status within the last 12 hours. [facility] is posting 0 beds. [facility] is posting 7 beds. [phone]: Per RN @ 12:19PM, they are already reviewing otherreferrals. She suggests calling back after 5PM [facility] is posting 0 beds. Negative covid required. [facility] is posting 0 beds. Neg covid. No high school/Kemi-psych. [phone]. Per Brittany @ 12:20PM, they are full today but Intake can call back tomorrow [facility] is posting 0 beds. [phone]. [facility] is posting 0 beds. [phone]. [facility] is posting 6 beds. (Ages 18-35) Negative covid, no aggression, physical or sexual assault, violence hx or drug abuse, or psychosis. [phone]; Per Nav @ 3:15PM, no Y[facility] beds [facility] is posting 0 beds. [facility] is posting 0 beds [phone]. Per Yoselin @ 12:22PM, [facility] is at full capacity until tomorrow after 8AM NER documented in this encounter Plan of Treatment Not on file documented as of this encounter Visit Diagnoses Not on filedocumented in this encounter Care Teams Lead Printer Relationship Specialty Start Date End Date Clinic - [address] [address] PCP - General Internal Medicine 10/15/23 documented as of this encounter
--- OUTSIDE RECORDS SUMMARY | 2025-02-10 23:10 | XMS_ITS | Clinical Summary ---
Author Organization [facility] Address [address] [place] [address] Care Team Providers Care [employer] Analyst Name Role Phone Meng Conner MD Primary [...] for each transition of care or referral. [employer] Allergies Active Allergy Reactions Criticality Noted Date Comments Cefazolin Other, see comments,Unknown,Respira tory Distress High 03/10/2015 Childhood rx- pt does not remember Medications gabapentin (NEURONTIN) 300 MG capsule Take 1 capsule (300 mg) by mouth three times a day as needed for anxiety or sleep. 60 Capsule 1 01/04/2024 10:03 AM CDT 4 Active lithium carbonate ER (LITHOBID) 300 MG extended release tabletIndications :Depressive Phase Bipolar Mood Disorder Take 4 Tablets (1,200 mg) by mouth daily at bedtime. Indications: Depressive Phase of Manic-Depressi on 120 Tablet 1 01/04/2024 10:03 AM CDT 4 Active melatonin 3 MG tabletIndications :Insomnia Take 1 Tablet (3 mg) by mouth daily at bedtime. Indications: Trouble Sleeping 30 Tablet 1 01/04/2024 10:03 AM CDT 4 Active OLANZapine (ZYPREXA) 20 MG tabletIndications :SCAD Take 1 Tablet (20 mg) by mouth daily at bedtime. Indications: SCAD 30 Tablet 1 01/04/2024 10:03 AM CDT 4 Active propranolol (INDERAL) 10 MG tabletIndications :Neuroleptic-Donita david Akathisia Take 1 tablet (10 mg) by mouth 4 times daily as needed for akithisia or anxiety. Indications: Neuroleptic-In duced Akathisia 60 Tablet 1 01/04/2024 10:03 AM CDT 4 Active QUEtiapine (SEROQUEL) 50 MG tabletIndications :SCAD Take 1 tablet (50 mg) by mouth two times daily as needed for insomnia or agitation. Indications: SCAD 30 Tablet 1 01/04/2024 10:03 AM CDT 4 Active traZODone (DESYREL) 50 MG tabletIndications :Insomnia Take 1 Tablet (50 mg) by mouth at bedtime as needed for Sleep. Indications: Trouble Sleeping 30 Tablet 1 01/04/2024 10:03 AM CDT 4 Active OLANZapine (ZYPREXA) 20 MG tablet Take 1 Tablet (20 mg) by mouth daily at bedtime. 14 Tablet 4 Active gabapentin (NEURONTIN) 300 MG capsule Take 1 capsule (300 mg) by mouth three times a day as needed for anxiety or sleep for up to 12 doses. 12 Capsule 4 Active methylPREDNISolon e (MEDROL 21 TABLET DOSEPACK) 4 MG tabletIndications :Impingement of right shoulder,Lumbar radiculopathy Take as directed for 6 days 21 Tablet 5 Active Active Problems Problem Noted Date Diagnosed Date Methamphetamine use disorder, severe, dependence 12/25/2023 Loose body in knee, right knee 07/26/2022 Overview (07/26/2022): Added automatically from request for surgery [id number] Chronic pain of right knee 05/24/2022 Overview (05/24/2022): Added automatically from request for surgery [id number] Effusion of right knee 05/24/2022 Overview (05/24/2022): Added automatically from request for surgery [id number] Painful orthopaedic hardware 05/24/2022 Overview (05/24/2022): Added automatically from request for surgery [id number] Multiple fractures of pelvis with stable disruption of pelvic chinik with routine healing 03/13/2015 Femur fracture, right [...] 11/2008 esophageal ulcer Abnormal weight gain 09/23/2007 Encounters Date Type Department Care Team Description 11/20/2024 6:50 PM CDT Ancillary Procedure [facility] [address] [place] [id number] Jordon Brito MD 11/20/2024 6:00 PM CDT Ancillary Procedure [facility] [address] [address] [address] [place] [address] Jordon Brito MD Acute pain of right shoulder 11/20/2024 5:55 PM CDT Ancillary Procedure [facility] [address] [address] [address] [place] [phone] Jordon Brito MD Chronic right-sided low back pain with right-sided sciatica (HRC) 11/20/2024 5:40 PM CDT Office Visit [facility] [address] [address] [address] [place] [address] Jordon Brito MD Acute pain of right shoulder (Primary Dx); Chronic right-sided low back pain with right-sided sciatica (HRC); Impingement of right shoulder; Lumbar radiculopathy; Osteoarthritis of right AC (acromioclavicular) joint from Last 3 Months Immunizations Immunization Administration Dates Next Due 9vHPV (Gardasil 9) 06/08/2022 Flu Vac (3+ yrs) 04/11/2007 Fluzone Qiv Multidose Vial 0.25 (6-35 Mos) 04/29 Influenza IIV4 (Quadrivalent) 0.5mL (15783) 03/04,08/22/2013 PPSV23 (Pneumovax) 08/22/2013 Tdap 02/22/2015,02/13/2007 Social History Tobacco Use Types Packs/Day Years Used Date Smoking Tobacco: Former Cigarettes Q uit: 01/2023 Smokeless Tobacco: Never Alcohol Use Standard Drinks/Week Comments No 0 (1 standard drink = 0.6 oz pur e alcohol) [facility] Utilities Answer Date Recorded In the past 12 months has [facility] [employer], gas, oil, or water [employer] threatened to shut off services in your [...] money to buy more. Often true 12/23/19 24 Within the past 12 months, t he [...] place to sleep or slept in a residential (including now)? Yes 12/23/2023 Sex and Gender [...] - - Weight 99.8 kg (220 lb) 11/20/2024 5:43 PM CDT Height 172.7 cm (5' 8) 11/20/2024 5:43 PM CDT Body Mass Index 33.45 11/20/2024 5:43 PM CDT Plan of Treatment Health Maintenance Due Date Last Done Comments Hep C Screening (Preventive Services) 1985 Medicare Annual Wellness Visit 1985 HepB Vaccine (1) 2002 Cholesterol 2018 HPV Vaccine (2 - 3-dose SCDM series) 07/06/2022 06/08/2022 COVID-19 Vaccine ( season) 2025 Influenza Vaccine (#1) 2025 2, 03/14/2015, 08/22/2013, Additional history exists Diabetes Screening- (based on age and BMI) 07/10/2027 07/10/2024, 10/18/2023, 01/03/2023, Additional history exists Zoster/Shingles Vaccine (1 of 2) 2033 DTaP/Tdap/Td Vaccine (5 - Tdap) 11/14/2033 11/15/2023, 09/16/2023, 02/22/2015, Additional history exists Pneumococcal Vaccine Aged Out 08/22/2013 No long [...] Procedure Name Priority Date/Time Associated Diagnosis Comments ORTHO ULTRASOUND Routine 11/20/2024 6:46 PM CDT XR SHOULDER RT 2+ VIEWS Routine 11/20/2024 6:16 PM CDT Acute pain of right shoulder XR LUMBAR SPINE AP/LAT VIEWS Routine 11/20/2024 6:16 PM CDT Chronic right-sided low back pain with right-sided sciatica (HRC) from Last 3 Months Results * Ortho Ultrasound (11/20/2024 6:46 PM CDT) Anatomical Region Laterality Modality Ultrasound Narrative 11/20/2024 6:46 PM CDT This imaging has been performed by the ordering department and is not read by a Radiologist, see notes in encounter for details on study. Jordon Brito MD RAD US Final Result * XR Shoulder Rt 2+ Views (11/20/2024 6:16 PM CDT) Anatomical Region Laterality Modality Upper Extremity, Shoulder Digita l Radiography Narrative 11/20/2024 6:45 PM CDT EXAM: XR SHOULDER RT 2+ VIEWS INDICATION: new onset pain, no known injury, limited ROM COMPARISON: None. FINDINGS: Bony structures appear unremarkable. Joint spaces are within normal limits. There is no dislocation or significant degenerative change. Numerous calcified granulomata incidentally noted within the visualized right lung. Signed by: Madeleine Garces 11/20/2024 6:45 PM Procedure Note Madeleine Garces MD - 11/20/2024 EXAM: XR SHOULDER RT 2+ VIEWS INDICATION: new onset pain, no known injury, limited ROM COMPARISON: None. FINDINGS: Bony structures appear unremarkable. Joint spaces are within normallimits. There is no dislocation or significant degenerative change. Numerous calcified granulomata incidentally noted within thevisualized right lung. Signed by: Madeleine Garces 11/20/2024 6:45 PM Jordon Brito MD RAD GD Final Result * XR Lumbar Spine AP/Lat Views (11/20/2024 6:16 PM CDT) Anatomical Region Laterality Modality Spine, L-Spine Digital Radiogra phy Narrative 11/20/2024 6:34 PM CDT EXAM: XR LUMBAR SPINE AP/LAT VIEWS INDICATION: chronic low back pain, numbness/tingling down right leg COMPARISON: None. FINDINGS: There are 5 lumbar type vertebral bodies. No fracture or subluxation of the lumbosacral vertebral bodies is identified. Vertebral disk space height and alignment appear normal. Signed by: Renu Oconnell 11/20/2024 6:34 PM Procedure Note Renu Oconnell MD - 11/20/2024 EXAM: XR LUMBAR SPINE AP/LAT VIEWS INDICATION: chronic low back pain, numbness/tingling down right leg COMPARISON: None. FINDINGS: There are 5 lumbar type vertebral bodies. No fracture or subluxation ofthe lumbosacral vertebral bodies is identified. Vertebral disk space height and alignment appear normal. Signed by: Renu Oconnell 11/20/2024 6:34 PM Jordon Brito MD RAD GD Final Result from Last 3 Months Insurance MEDICARE MEDICARE MEDICARE MEDICARE MEDICARE Advance [...] 12:29 AM 07/22/2013 2:01 PM Care Teams [employer] Analyst Relationship Specialty Start Date End Date Meng Conner MD [address] [facility], [address] PCP - General 02/03/16
--- OUTSIDE RECORDS SUMMARY | 2025-02-10 23:10 | XMS_ITS | Clinical Summary ---
Author Organization [facility] Address [address] [place] [address] Care Team Providers Care Dragline Operator Helper Name Role Phone Stefanie Donis APRN C.N.PPaola Primary Care Provi amie Source Comments Patient records contain information from all sites at [facility]. For routine questions regarding patient records, call [phone] during business hours, M-F 8:00 AM - 5:00 PM Central Time. Record requests for emergency care only can be directed to [phone] at any time.[facility] Allergies No known active allergies Medications * This document contains information received from the source organization and may not represent a complete record from that organization. atomoxetine (Strattera) 40 mg capsule Take 1 capsule (40 mg total) by mouth daily. 30 capsule 01/07/2025 9:28 AM CDT 5 Active OLANZapine (ZyPREXA) 15 mg tablet Take 1 tablet (15 mg total) by mouth 2 (two) times a day. 60 tablet 01/14/2025 9:08 AM CDT 5 Active varenicline tartrate (Chantix) 1 mg tabletIndicatio ns:smoking cessation Take 1 tablet (1 mg total) by mouth 2 (two) times a day Indications: stop smoking. 60 tablet 01/23/2025 5:29 PM CDT 5 Active varenicline tartrate (Chantix) 1 mg tablet Take 1 tablet (1 mg total) by mouth 2 (two) times a day for 60 days. Take with full glass of water. 60 tablet 5 03/24/20 25 Active semaglutide (Ozempic) 0.25 mg or 0.5 mg (2 mg/3 mL) injectionIndica tions:Obesity Body Mass Index 30-39.9 Adult Inject 0.25 mg under the skin every 7 (seven) days for 28 days, THEN inject 0.5 mg every 7 (seven) days. 3 mL 02/04/2025 9:50 AM CDT 5 Active escitalopram (Lexapro) 10 mg tablet Take 1 tablet (10 mg total) by mouth daily. 30 tablet 02/02/2025 11:54 AM CDT 5 Active OXcarbazepine (TrileptaL) 600 mg tablet Take 1 tablet (600 mg total) by mouth 2 (two) times a day. 60 tablet 02/04/2025 9:50 AM CDT 5 Active hydrOXYzine (Atarax) 50 mg tablet Take 1 tablet (50 mg total) by mouth 4 (four) times a day as needed for anxiety. 60 tablet 02/04/2025 9:50 AM CDT 5 Active pantoprazole (Protonix) 40 mg EC tablet Take 1 tablet (40 mg total) by mouth daily before morning meal for 10 days. 10 tablet 5 02/18/20 25 Active escitalopram (Lexapro) 10 mg tablet Take 1 tablet (10 mg total) by mouth daily. 30 tablet 01/07/2025 9:28 AM CDT 5 02/02/20 25 Discontinu ed(Reorder ) hydrOXYzine (Atarax) 50 mg tablet Take 1 tablet (50 mg total) by mouth 4 (four) times a day as needed for anxiety. 60 tablet 01/07/2025 9:28 AM CDT 5 01/23/20 25 Discontinu ed(Reorder ) metFORMIN (Glucophage) 500 mg tablet Take 1 tablet (500 mg total) by mouth daily with morning meal. 30 tablet 01/07/2025 9:28 AM CDT 5 01/15/20 25 Discontinu ed(Therapy Ineffectiv e) varenicline tartrate (Chantix) 1 mg tabletIndicatio ns:smoking cessation Take 0.5 tablets (0.5 mg total) by mouth 2 (two) times a day with meals for 3 days, THEN 1 tablet (1 mg total) 2 (two) times a day for 27 days. Take with full glass of water. 28 tablet 01/07/2025 9:28 AM CDT 5 01/23/20 25 Discontinu ed(Reorder ) OXcarbazepine (TrileptaL) 600 mg tablet Take 1 tablet (600 mg total) by mouth 2 (two) times a day. 60 tablet 01/07/2025 9:28 AM CDT 5 02/02/20 25 Discontinu ed(Reorder ) semaglutide (Ozempic) 0.25 mg or 0.5 mg (2 mg/3 mL) injectionIndica tions:Obesity Body Mass Index 30-39.9 Adult Inject 0.25 mg under the skin every 7 (seven) days for 28 days, THEN inject 0.5 mg every 7 (seven) days. 3 mL 01/14/2025 6:56 PM CDT 5 01/24/20 25 Discontinu ed(Reorder ) hydrOXYzine (Atarax) 50 mg tablet Take 1 tablet (50 mg total) by mouth 4 (four) times a day as needed for anxiety. 60 tablet 01/23/2025 5:29 PM CDT 5 02/02/20 25 Discontinu ed(Reorder ) Hospital, Clinic, or Other Facility Administered Medication Ordered Dose Route Frequency Start Date End Date Status sodium chloride 0.9 % injection 10 mLIndications:Uveitis Posterior Bilateral 10 mL IV As needed 08/20/2024 Activ e tetracaine (PF) 0.5 % ophthalmic solution 1 drop (Altacaine)Indications:U veitis Posterior Bilateral 1 drop left eye As needed 08/25/2024 08/24/2025 Active balanced salt solution ophthalmic irrigation 30 mL (BSS)Indications:Uveitis Posterior Bilateral 30 mL left eye As needed 08/25/2024 08/24/2025 Activ e carboxymethylcellulose 1 % ophthalmic solution 1 drop (TheraTears)Indications: Uveitis Posterior Bilateral 1 drop left eye As needed 08/25/2024 08/24/2025 Active povidone-iodine 5 % ophthalmic solution 1 drop (Betadine)Indications:Uv eitis Posterior Bilateral 1 drop left eye As needed 08/25/2024 08/24/2025 Active proparacaine 0.5 % ophthalmic solution 1 drop (Alcaine)Indications:Uve itis Posterior Bilateral 1 drop left eye As needed 08/25/2024 08/24/2025 Active bevacizumab intraocular injection 1.25 mg (Avastin)Indications:Uve itis Posterior Bilateral,Edema Retina 1.25 mg vtre As needed 11/04/2024 Ac tive Active Problems Problem Noted Date Diagnosed Date Schizoaffective Disorder 12/25/2024 Assessment & Plan (01/20/2025 6:37 AM CDT): Under psychiatric care with Dr. Elvie Grant. Current medications include Lexapro, Zyprexa, and Trileptal. Strattera ineffective for focus. - Follow up with psychiatry as scheduled. - Discuss Strattera's ineffectiveness and review medications with psychiatrist. Follow-up plan in place with psychiatry and weight management. - Follow up with provider in six months. - Send monthly updates on weight management progress. Antisocial Personality Disorder 12/25/2024 Abuse Alcohol Continuous Drinking 12/25/2024 Nicotine Dependence Other Tobacco Product 2024 Resolved Problems Problem Noted Date Diagnosed Date Resolved Date Suicide Ideation 12/25/2024 01/07/2025 Encounters * This document contains information received from the source organization and may not represent a complete record from that organization. Date Type Department Care Team Description 02/07/2025 9:27 PM CDT - 02/07/2025 11:43 PM CDT Emergency [facility] Emergency Department [address] [place] [address] Justen Bergman D.O. Other Esophagitis Without Bleeding (Primary Dx); Other Dysphagia Discharge Disposition: Home or Self Care 01/27/2025 11:57 AM CDT - 01/27/2025 11:59 PM CDT Emergency [facility] [address] [place] [address] Discharge Disposition: Home or Self Care 01/23/2025 Refill Department of Family Medicine, [facility], in [place], [place] [address] [place] [phone] Stefanie Donis, ARMATURE WINDER HELPER REPAIR, C.N.P. Med Refill 01/23/2025 Orders Only Department of [facility], [facility], in [place], [place] [address] [place] [phone] Stefanie Donis APRN, C.N.P. 01/14/2025 12:00 PM CDT Office Visit Department [facility], [facility], in [place], [place] [address] [place] [phone] Stefanie Donis APRN, C.N.P. Benji Hoang R.N. Annual Medicare Examination Return (Primary Dx) 01/14/2025 11:30 AM CDT Office Visit Department of [facility], [facility], in [place], [place] [address] [place] [phone] Stefanie Donis APRN, C.N.P. Obesity Body Mass Index 30-39.9 Adult (Primary Dx); Schizoaffective Disorder (HCC) 01/06/2025 Clinical Communication [facility] [address] [place] [phone] Mikki Ballard M.D. Post Hospital Follow-up 01/06/2025 Orders Only [facility] PCP [facility] MNT Stefanie Donis APRN, C.N.P. 12/25/2024 Clinical Communication Department of Nicotine Dependence, [facility], in [place], [place] [address] [place] [phone] Brigid Marx M.S., L.A.Gabriel.C., C.T.T.S. [place] med request 11/18/2024 Clinical Communication Department of Ophthalmology in [place], [place] [address] [place] [phone] Anel Vale from Last 3 Months Immunizations Immunization Administration Dates Next Due 9vHPV 06/08/2022 Influenza, Injectable, Quadrivalent 04/29/2022 Influenza, Unspecified 04/11/2007 PPSV23 08/22/2013 Tdap 11/15/2023,02/22/2015,02/13/2007 influenza vaccine quad (FLUZ ONE/FLUARIX) (6 months and older)(PF) 03/14/2015,08/22/2013 Social History Tobacco Use Types Packs/Day Years [...] needed for daily living? Patient declined 12/26/2024 [facility] Utilities Answer Date Recorded In the past 12 months has e [employer], gas, oil, or water company threatened to shut off services in your home? Patient declined 12/26/2024 Depression Answer Date Recor ded PHQ-9 Total Score (max 27) 13 01/06 Housing Stability Answer Date Recorded What is your living situatio n today? 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 Gender Identity Not on file Sexual Orientation [...] Mass Index 38.55 02/07/2025 9:28 PM CDT Plan of Treatment Health Maintenance Due Date Last Done Comments HIV Screening 1983 Hepatitis C Screening 1983 Hepatitis B Vaccines (1 of 3 - 19+ 3-dose series) 2002 Pneumococcal vaccine (0-49 years) (2 of 2 - PCV) 08/22/2014 08/22/2013 HPV Vaccines (2 - 3-dose SCDM series) 07/06/2022 06/08/2022 COVID-19 Vaccine ( - season) 2025 Influenza Vaccine (#1) 2025 2, 03/14/2015, 08/22/2013, Additional history exists Visit: Medicare Annual Wellness 01/15/2026 01/14/2025 Glucose Test for Med Monitoring 02/07/2026 02/07/2025, 12/25/2024, 10/20/2024, Additional history exists Lipid (Cholesterol) Screening 01/05/2030 01/05/2025, 07/10/2024, 10/18/2023 DTaP,Tdap,and Td Vaccines (4 - Td or Tdap) 11/14/2033 11/15/2023, 02/22/2015, 02/13/2007 Depression Screening (Annual PHQ-2) Completed 01/14/2025 IPV Vaccines Aged Out No longer eligi ble based on patient's age to complete this topic Procedures Procedure Name Priority Date/Time Associated Diagnosis Comments CT ABDOMEN PELVIS WITH IV CONTRAST RAD - Semiurgent (Fast; most ED patients; some inpatients) 02/07/2025 10:[address] CHEST WITH IV CONTRAST RAD - Semiurge nt (Fast; most ED patients; some inpatients) 02/07/2025 10:24 PM CDT TYPE AND SCREEN STAT 02/07/2025 9:44 PM CDT LACTATE, B/P STAT 02/07/2025 9:44 PM CDT PROTHROMBIN TIME (PT), P STAT 9:44 PM CDT CBC WITH DIFFERENTIAL, B STAT 025 9:43 PM CDT BASIC METABOLIC PANEL, S/P STAT 02/07/2025 9:43 PM CDT LIPID PANEL, S Routine 01/05/2025 9:02 AM CDT SODIUM, S/P Routine 01/05/2025 9:02 AM CDT DRUG SCREEN URINE Routine 01/02/2025 8:48 AM CDT PHOSPHATIDYLETHANOL CONFIRMATION, B Routine 01/01/2025 2:41 PM CDT ETHANOL, S STAT 12/25/2024 7:36 AM CDT SALICYLATE LEVEL, S STAT 12/25/2024 7:36 AM CDT ACETAMINOPHEN LEVEL, S STAT 7:36 AM CDT THYROID-STIMULATING HORMONE-SENSITIVE (S-TSH) STAT 12/25/2024 7:36 AM CDT BASIC METABOLIC PANEL, S/P STAT 12/25/2024 7:36 AM CDT CBC WITH DIFFERENTIAL, B STAT 025 7:36 AM CDT ECG Routine 12/25/2024 7:17 AM CDT from Last 3 Months Results * CT Abdomen Pelvis with IV [...] abdomen or pelvis. us Justen Bergman D.O. IMSiddhartha CT PROCEDURES Final Result * CT Chest [...] the abdomen or pelvis. Justen Bergman D.O. Siddhartha CT PROCEDURES Final Result * Prothrombin Time (PT) (02/07/2025 9:44 PM CDT) Prothrombin Time, P 10.8 9.4 - 12.5 sec 02/07/2025 9:55 PM CDT STMA INR 1.0 0.9 - 1.1 02/07/2025 9:55 PM CDT STMA Comment: ----ADDITIONAL INFORMATION---- Standard intensity warfarin therapeutic range: 2.0 to 3.0 High intensity warfarin therapeutic range: 2.5 to 3.5 Blood (Blood, Venous) 02/07/2025 9:44 PM CDT 02/07/2025 9:49 PM CDT us Justen Bergman D.O. LAB BLOOD ADD-ON Final Result [facility] [address] [place] [address], [facility] STMA [facility] [address] [place] [address] * Type and Screen (with Reflex Antibody ID) (02/07/2025 9:44 PM CDT) Pathologist [facility] ABORh A Pos Not applicable 02/07/2025 10:16 PM CDT STRM Antibody Screen Negative Negative 02/07/2025 10:32 PM CDT STRM Type & Screen Expiration 02/10/2025 23:59 02/07/2025 10:16 PM CDT STRM Testing Location [place] DEFAULT 02/07/2025 9:52 PM CDT STRM Blood (Blood, Venous) 02/07/2025 9:44 PM CDT 02/07/2025 9:52 PM CDT Justen Bergman D.O. LAB BLOOD BANK TEST ORD ERABLES Final Result Performing Organization Address City/[facility]/ZIP Co de Phone Number [facility] [address] [place] [address], [facility] STRM [facility] [address] [place] [address] * Lactate (02/07/2025 9:44 PM CDT) Lactate, P 2.1 0.5 - 2.2 mmol/L 02/07/2025 10:03 PM CDT STMA Blood (Blood, Venous) 02/07/2025 9:44 PM CDT 02/07/2025 9:49 PM CDT Justen Bergman D.O. LAB BLOOD NON ADD-ON Fi nal Result [facility] [address] [place] [address], [facility] STMA [facility] [address] [place] [address] * (ABNORMAL) CBC with Differential, Blood (02/07/2025 9:43 PM CDT) Only the most recent of2 resultswithin the time period is included. Hemoglobin 14.3 13.2 - 16.6 g/dL 02/07/2025 [...] 9:43 PM CDT 02/07/2025 9:50 PM CDT Justen Bergman D.O. LAB BLOOD ADD-ON Final Result [facility] [address] [place] [address], [facility] STMA [facility] [address] [place] [address] DHPM [facility] [address] [place] [address] * (ABNORMAL) Basic Metabolic Panel (02/07/2025 9:43 PM CDT) Only the most recent of2 resultswithin the time period is included. Potassium, P 3.9 3.6 - 5.2 mmol/L [...] Bergman D.O. LAB BLOOD ADD-ON Final Result [facility] [address] [place] [address], [facility] [address] [place] [address] * (ABNORMAL) Lipid Panel (01/05/2025 9:02 AM CDT) Triglycerides 360(H) mg/dL 01/05/2025 10:14 AM CDT DTL Comment: ----REFERENCE VALUE---- Normal: <150 mg/dL Borderline High: 150-199 mg/dL High: 200-499 mg/dL Very High: > or =500 mg/dL Cholesterol, Total 219(H) mg/dL 2024 10:14 AM CDT DTL Comment: ----REFERENCE VALUE---- Desirable: < 200 mg/dL Borderline High: 200 - 239 mg/dL High: > or = 240 mg/dL Cholesterol, LDL, Calculated 108 mg/dL 01/05/2025 10:14 AM CDT DTL Comment: ----REFERENCE VALUE---- Desirable: <100 mg/dL Above Desirable: 100-129 mg/dL Borderline High: 130-159 mg/dL High: 160-189 mg/dL Very High: >=190 mg/dL ----ADDITIONAL INFORMATION---- LDL cholesterol calculated using the Shahid/NIH equation. Cholesterol, HDL, S 50 >=40 mg/dL 01/05/2025 10:14 AM CDT DTL Cholesterol, Non-HDL, Calculated 169(H) mg/dL 01/05/2025 10:14 AM CDT DTL Comment: ----REFERENCE VALUE---- Desirable: <130 mg/dL Above Desirable: 130-159 mg/dL Borderline High: 160-189 mg/dL High: 190-219 mg/dL Very High: > or =220 mg/dL Fasting (8 HR or more) Yes 01/05/2025 9:02 AM CDT DTL Blood (Blood, Venous) 01/05/2025 9:02 AM CDT 01/05/2025 9:53 AM CDT us Mikki Ballard M.D. LAB BLOOD ADD-ON Final Res ult Performing Organization Address City/[facility]/ZIP Co de Phone Number [facility] [address] [place] [address] * (ABNORMAL) Sodium (01/05/2025 9:02 AM CDT) Sodium, S 134(L) 135 - 145 mmol/L 01/05/2025 10:14 AM CDT DTL Blood (Blood, Venous) 01/05/2025 9:02 AM CDT 01/05/2025 9:53 AM CDT Mikki Ballard M.D. LAB BLOOD ADD-ON Final Res ult Performing Organization Address City/[facility] [place] [address], [place] [address] * Drug Screen Urine (01/02/2025 8:48 AM CDT) Ethanol, Screen U Negative NEGATIVE 01/02/2025 9:34 AM CDT DTL Amphetamines, U Negative NEGATIVE 01/02/2025 9:34 AM CDT DTL Barbiturates, Screen, U Negative NEGATIVE 01/02/2025 9:34 AM CDT DTL Benzodiazepine s, Screen, U Negative NEGATIVE 01/02/2025 9:34 AM CDT DTL Cocaine, Screen, U Negative NEGATIVE 01/02/2025 9:34 AM CDT DTL Opiates, Screen, U Negative NEGATIVE 01/02/2025 9:34 AM CDT DTL Phencyclidine, Screen, U Negative NEGATIVE 01/02/2025 9:34 AM CDT DTL Tetrahydrocann abinol, U Negative NEGATIVE 01/02/2025 9:34 AM CDT DTL Urine (Urine, Midstream) 01/02/2025 8:48 AM CDT 01/02/2025 8:48 AM CDT Mikki Ballard M.D. LAB URINE ORDERABLES Final Result [facility] [address] [place] [address], [place] DTL [facility] [address] [place] [address] * Phosphatidylethanol Confirmation (01/01/2025 2:41 PM CDT) PEth 16:0/18:1 (POPEth) by LC-MS/MS 152 Cutoff: 10 ng/mL 01/02/2025 10:34 AM CDT [facility] Comment: Phosphatidylethanol (PEth) homologues result interpretation PEth 16:0/18:1 (POPEth) Less than 10 ng/mL: Not detected 10 - 19 ng/mL: Abstinence or light alcohol consumption (<2 drinks per day for several days a week) 20 - 200 ng/mL: Moderate alcohol consumption (up to 4 drinks per day for several days a week) Greater than 200 ng/mL: Heavy alcohol consumption or chronic alcohol use (at least 4 drinks per day several days a week) (Reference: Tiesha Ariza and Yoly Del Rosario 2018 J. Forensic Sci) PEth 16:0/18:2 (PLPEth) by LC-MS/MS 89 Cutoff: 10 ng/mL 01/02/2025 10:34 AM CDT [facility] Comment: PEth 16:0/18:2 (PLPEth) Reference ranges are not well established PEth Interpretation Positive. 01/02 10:34 AM CDT [facility] Comment: ----ADDITIONAL INFORMATION---- This report is intended for use in clinical monitoring and management of patients. It is not intended for use in employment-related testing. This test was developed and its performance characteristics determined by [facility] in a manner consistent with CLIA requirements. This test has not been cleared or approved by the U.S. Food and Drug Administration. Blood (Blood, Venous) 01/01/2025 2:41 PM CDT 01/01/2025 7:22 PM CDT Mikki Ballard M.D. LAB BLOOD ADD-ON Final Res ult [facility] [address] [place] [address] [facility] [address] [place] [address] [place] [address] * Ethanol Level, Serum (12/25/2024 7:36 AM CDT) Ethanol, S <10 <10 mg/dL 12/25/2024 8:5 4 AM CDT DTL Blood (Blood, Venous) 12/25/2024 7:36 AM CDT 12/25/2024 8:07 AM CDT Yvrose Rios P.A.-C. LAB BLOOD NON ADD-ON Cristina l Result Performing Organization Address City/[facility]/[place] [address] * S-TSH (Thyroid-Stimulating Hormone - Sensitive) (12/25/2024 7:36 AM CDT) Pathologist [facility] TSH, Sensitive 0.5 0.3 - 4.2 mIU/L 12/25/2024 8:54 AM CDT DTL Blood (Blood, Venous) 12/25/2024 7:36 AM CDT 12/25/2024 8:07 AM CDT Yvrose SorianoCPaola LAB BLOOD ADD-ON Final Re sult Performing Organization Address City/[facility]/[place] [address] * Acetaminophen Level (12/25/2024 7:36 AM CDT) Acetaminophen, S <7 Therapeutic Range: 10-30 mcg/mL 12/25/2024 8:54 AM CDT DTL Blood (Blood, Venous) 12/25/2024 7:36 AM CDT 12/25/2024 8:07 AM CDT Yvrose Rios P.A.-C. LAB BLOOD ADD-ON Final Re sult Performing Organization Address [facility] Co de Phone Number [facility] [address] [place] [address] * Salicylate Level (12/25/2024 7:36 AM CDT) Salicylate, S <0.3 <30.0 mg/dL 12/25/2024 8:54 AM CDT DTL Blood (Blood, Venous) 12/25/2024 7:36 AM CDT 12/25/2024 8:07 AM CDT Yvrose Rios P.A.-C. LAB BLOOD ADD-ON Final Re sult Performing Organization Address [facility] de Phone Number [facility] [address] [place] [address] * ECG 12 Lead (12/25/2024 7:17 AM CDT) Ventricular Rate ECG/Min 73 BPM MUSE [place] Interval 148 ms MUSE QRSD Interval 100 ms MUSE QT Interval 370 ms MUSE QTC Interval 407 ms MUSE P [place] 61 degrees MUSE R [place] 63 degrees MUSE T Wave [place] 48 degrees MUSE 12/25/2024 7:17 AM CDT 12/25/2024 12:09 PM CDT Impressions MUSE - 12/25/2024 7:19 AM CDT Normal sinus rhythm Normal ECG When compared with ECG of 03-Sep-2013 17:11, No significant change was found Reviewed by SAKSHI Prater Narrative Procedure Note Chino Harley M.B.B.S., M.S. - 12/25/2024 IMPRESSION: Normal sinus rhythm Normal ECG When compared with ECG of 03-Sep-2013 17:11, No significant change was found Reviewed by SAKSHI Prater us Yvrose Rios P.A.-C. ECG ORDERABLES Edited Re karsten - Final MUSE NA from Last 3 Months Insurance MEDICARE Advance Directives For more information, please contact: [phone] * Full Code (Latest Code Status on File) Date Activated Date Inactivated Comments 12/25/2024 1:31 PM 01/07/2025 12:13 PM Question Answer Comments Full Code: Not Discussed Due to: Not medically appropriate Care Teams Dragline Operator Helper Relationship Specialty Start Date End Date Stefanie Donis APRN, C.N.P. [address] [place] [address] PCP - General Family Medicine 08/20/24
--- OUTSIDE RECORDS SUMMARY | 2025-02-10 23:10 | XMS_ITS | Encounter Summary ---
Author Organization [facility] Address [address] [place] [address] Care Team Providers Care Trawl Net Maker Name Role Phone Avani Flowers Md Primary Care Provider Gnee Mcgregor MD Primary Care Provider [phone] No Ref-Primary, Physician Primary Care Provider Leah Dale APRN PRIMARY CARE PHYSICIAN Primary Care Provider Meng Conner MD Primary Care Provider [phone] [facility] Primary Care Provide r [facility] [place][Note 2] Primary Care Provider Encounter Details Date Type Department Care Team (Late st Contact Info) Description 11/17/2009 [place] [address] [place] [address] Meng Conner MD XXX RESIGNED XXX [address] [place] [address] [facility] SUMMARY Social History Tobacco Use Types Packs/Day Years Used Date Smoking Tobacco: Former Cigarettes 0.3 1 Smokeless Tobacco: Former Quit: 09/02/2013 Comments:e cig Alcohol Use Standard Drinks/Week Comments No 0 (1 standard drink = 0.6 oz pur e alcohol) Sex and Gender Information Value Date Recorded Sex Assigned at Not on file 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 Gender Identity Not on file Sexual Orientation Not on file documented as of this encounter Plan of Treatment Not on file documented as of this encounter Visit Diagnoses Diagnosis [facility] SUMMARY- Primary documented in this encounter Additional Health Concerns Infection Onset Date Last Indicated Resolved Time MRSA-Contact Isolation Comment:MRSA: 01-21-02 skin and sputum Infection erroneous 06/06/2021 11 :03 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 MRSA 06/23/2021 06/23/2021 10/16/2023 9:21 AM CDT COVID-19 05/10/2024 05/10/2024 05/21/2024 11:4 1 PM SCORING 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 OPERATOR documented as of this encounter Care Teams Trawl Net Maker Relationship Specialty Start Date End Date Avani Flowers Md PCP - General 03/07/12 05/29/13 Gene Laws MD [address] [facility] [address] [place], [place] [address] PCP - General Psychiatry 05/30/13 05/30/13 No Ref-Primary, Physician PCP - General 06/23/13 09/19/13 Leah Dale APRN PRIMARY CARE PHYSICIAN PCP - General Nurse Practitioner - Adult Health 09/20/13 01/10/15 Meng Conner MD PCP - General Internal Medicine 12/13/15 07/12/[address] [address] PCP - General 10/16/22 10/14/[address] [address] PCP - General Internal Medicine 10/15/23 documented as of this encounter
--- OUTSIDE RECORDS SUMMARY | 2025-02-10 23:11 | XMS_ITS | Encounter Summary ---
Author Organization [facility] Address [address] [place] [address] Care Team Providers Care Sewer Inspector Name Role Phone Stefanie Donis APRN, C.N.P. Primary Care Provi amie Encounter Details Date Type Department Care Team (Late st Contact Info) Description 01/23/2025 Orders Only Department of Family Medicine, [facility], in [place], [place] [address] [phone] Stefanie Donis APRN, C.N.P. [address] [phone] Social History Tobacco Use Types Packs/Day Years [...] needed for daily living? Patient declined 12/26/2024 [facility] Utilities Answer Date Recorded In the past 12 months has th e electric, gas, oil, or water company threatened to shut off services in your home? Patient declined 12/26/2024 Depression Answer Date Recor ded PHQ-9 Total Score (max 27) 13 01/06 Housing Stability Answer Date Recorded What is your living situatio n today? 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 [address] [place] [phone] PCP - General Family Medicine 08/20/24 documented as of this encounter
--- OUTSIDE RECORDS SUMMARY | 2025-02-10 23:11 | XMS_ITS | Encounter Summary ---
Author Organization [facility] Address [address] [place] [address] Care Team Providers Care Bereavement Coordinator Name Role Phone Stefanie Donis APRN, C.N.P. Primary Care Provi amie Reason for Visit * Reason Comments Med Refill Encounter Details Date Type Department Care Team (Late st Contact Info) Description 01/23/2025 Refill Department of Family Medicine, [facility], in [place], [place] [address] [phone] Stefanie Donis APRN, C.N.P. [address] [place] [address] Med Refill Social History Tobacco Use Types Packs/Day Years [...] needed for daily living? 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 - 01/24/2025 7:46 AM CDT Your requested refill has been sent to your pharmacy. documented in this encounter Plan of Treatment Not on file documented as of this encounter Visit Diagnoses Diagnosis Obesity Body Mass Index 30-39.9 Adult documented in this encounter Additional Health Concerns Assessment Noted Time PHQ-9 Depression Total Score: 13 025 5:34 PM CDT documented as of this encounter Care Teams Bereavement Coordinator Relationship Specialty Start Date End Date Stefanie Donis APRN, C.N.P. [address] [place] [address] PCP - General Family Medicine 08/20/24 documented as of this encounter
--- OUTSIDE RECORDS SUMMARY | 2025-02-10 23:11 | XMS_ITS | Encounter Summary ---
Author Organization [facility] Address [address] [place] [address] Care Team Providers Care Paper Folding Machine Operator Name Role Phone Stefanie Donis APRN C.N.PPaola Primary Care Provi amie Reason for Visit * Reason Onset Date Comments Post Hospital Follow-up 01/06/2025 Encounter Details Date Type Department Care Team (Latest Contact Info) Description 01/06/2025 Clinical Communication [facility] [address] [place] [phone] Mikki Ballard M.D. [address] [place] [phone] Post Hospital Follow-up Social History Tobacco Use Types Packs/Day Years [...] needed for daily living? 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 Gender Identity Not on file Sexual Orientation Not on file documented as of this encounter Plan of Treatment Scheduled Orders Name Type Priority Associated Diagnoses Orde r Schedule Sodium Lab Routine Schizoaffective Disorder (HCC) Expected: 01/12/2025, Expires: 04/08/2026 documented as of this encounter Visit Diagnoses Diagnosis Schizoaffective Disorder (HCC)- Primary documented in this encounter Additional Health Concerns Assessment Noted Time PHQ-9 Depression Total Score: 13 025 5:34 PM CDT documented as of this encounter Care Teams Paper Folding Machine Operator Relationship Specialty Start Date End Date Stefanie Donis APRN, C.N.P. [address] [place] [address] PCP - General Family Medicine 08/20/24 documented as of this encounter
--- OUTSIDE RECORDS SUMMARY | 2025-02-10 23:11 | XMS_ITS | Encounter Summary ---
Author Organization [facility] Address [address] [place] [address] Care Team Providers Care Loss Prevention Operations Manager Name Role Phone Stefanie Donis APRN, C.N.P. Primary Care Provi amie Encounter Details Date Type Department Care Team (Late st Contact Info) Description 01/06/2025 Orders Only [facility] Stefanie Donis APRN, C.N.P. [address] [place] [address] Social History Tobacco Use Types Packs/Day [...] needed for daily living? 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 [address], [place] [address] PCP - General Family Medicine 08/20/24 documented as of this encounter
--- OUTSIDE RECORDS SUMMARY | 2025-02-10 23:12 | XMS_ITS | Encounter Summary ---
Author Organization [facility] Address [address] [place] [address] Care Team Providers Care Director Of Flight Operations Name Role Phone Meng Conner MD Primary [...] on filedocumented in this encounter Care Teams Director Of Flight Operations Relationship Specialty Start Date End Date Meng Conner MD [address] [place] [address] PCP - General 02/03/16 documented as of this encounter
--- OUTSIDE RECORDS SUMMARY | 2025-02-10 23:12 | XMS_ITS | Clinical Summary ---
Author Organization [facility] Address [address] [place] [address] Care Team Providers Care Auxiliary Equipment Operator Name Role Phone Pcp, No Primary Care [...] 11/19/2009 Overview (11/19/2009): EGD 11/2008 esophageal ulcer Encounters Date Type Department Care Team Description 01/27/2025 11:59 AM CDT - 01/27/2025 1:05 PM CDT Emergency [facility] [address] [place] [address] Salvador Cochran PA Epigastric pain (Primary Dx); Intermittent abdominal pain Discharge Disposition: Home Self Care 01/27/2025 Travel from Last 3 Months Immunizations Immunization Administration Dates Next Due HPV [...] Housing in the Last Year 1 09/28/2022 Interpersonal Safety Answer Date Record ed Are you being hit, kicked, p ushed or yelled at (see row info)? No 01/27/2025 Interpersonal Safety Abuse 12 - 18 Not on file 01/27/2025 Interpersonal Safety Ambulatory Vulnerability No t on file 01/27/2025 Sex and Gender Information Value Date Recorded Sex Assigned at Not on file Legal Sex Male 6:25 AM DIRECT CARE SPECIALIST Gender Identity Not on file Sexual Orientation Not on file Obstetrics History Last Filed Vital Signs Vital Sign Reading Time Taken Comments Blood Pressure 136/98 01/27/2025 12:07 PM CDT Pulse 97 01/27/2025 12:07 PM CDT Temperature 36.7 C (98 F) 01/27/2025 12:07 PM CDT Respiratory Rate 19 01/27/2025 12:07 PM CDT Oxygen Saturation 98% 01/27/2025 12:07 PM CDT Inhaled Oxygen Concentration - - Weight 113.4 kg (250 lb) 01/27/2025 12:07 PM CDT Height 172.7 cm (5' 8) 01/27/2025 12:07 PM CDT Body Mass Index 38.01 01/27/2025 12:07 PM CDT Plan of Treatment Health Maintenance Due Date Last Done Comments Hepatitis B series for 19+ (1 of 3 - 19+ 3-dose series) 2002 HPV series for age 9-45 (2 - 3-dose SCDM series) 07/06/2022 06/08/2022 BMI (ht and wt on same day) for age 18+ 09/29/2023 09/28/2022, 07/05/2022 Depression screening for age 12+ 09/29/2023 09/28/2022 COVID-19 vaccine series ( season) 2025 Influenza Vaccine (#1) 2025 , 03/14/2015, 08/22/2013, Additional history exists Tetanus booster 02/22/2025 02/22/2015, 02/13/2007 Lipids for age 35-44 09/29/2027 09/28/2022 RSV vaccine for adults or (1 - 1-dose 75+ series) 2058 Pneumococcal series for age 6-49 Aged Out 08/22/2013 No longer eligible based on patient's age to complete this topic HIV for age 15-65 Completed 09/28/2022 Hepatitis C screening for age 18-79 Completed 09/28/2022 Procedures Procedure Name Priority Date/Time Associated Diagnosis Comments CBC WITH AUTO DIFFERENTIAL STAT 01/27/2025 12:24 PM CDT ETHANOL SERUM OR PLASMA STAT 01/27/2025 12:24 PM CDT MAGNESIUM STAT 01/27/2025 12:24 PM CDT LIPASE STAT 01/27/2025 12:24 PM CDT HEPATIC FUNCTION PANEL STAT 01/27/2025 12:24 PM CDT BASIC METABOLIC PANEL STAT 01/27/2025 12:24 PM CDT CBC WITH AUTO DIFFERENTIAL STAT 01/27/2025 12:24 PM CDT UA W/ SEDIMENT EXAM REFLEXED PER CRITERIA STAT 01/27/2025 12:12 PM CDT LC HIV-1/O/2, 4TH GENERATION Routine 09/28/2022 8:27 AM CDT Screening for HIV (human immunodeficiency virus) LC HCV ANTIBODY RFX TO QUANT PCR Routine 09/28/2022 8:27 AM CDT Need for hepatitis C screening test LC LIPID PANEL AND CHOL/HDL RATIO Routine 09/28/2022 8:27 AM CDT Screening for lipid disorders from Last 3 Months or Most Recently Relevant to Health Maintenance Results * CBC WITH AUTO DIFFERENTIAL (01/27/2025 12:24 PM CDT) WHITE BLOOD COUNT 8.7 4.5 - 11.0 thou/cu mm 01/27/2025 12:31 PM [facility] RED BLOOD COUNT 4.84 4.30 - 5.90 mil/cu mm 01/27/2025 12:31 PM [facility] HEMOGLOBIN 14.0 13.5 - 17.5 g/dL 01/27/2025 12:31 PM [facility] HEMATOCRIT 43.4 37.0 - 53.0 % 01/27/2025 12:31 PM [facility] MCV 90 80 - 100 fL 01/27/2025 12:31 PM [facility] MCH 28.9 26.0 - 34.0 pg 01/27/2025 12:31 PM [facility] MCHC 32.3 32.0 - 36.0 g/dL 01/27/2025 12:31 PM [facility] RDW 13.7 11.5 - 15.5 % 01/27/2025 12:31 PM [facility] PLATELET COUNT 278 140 - 440 thou/cu mm 01/27/2025 12:31 PM [facility] MPV 9.4 6.5 - 11.0 fL 01/27/2025 12:31 PM [facility] % NEUT 77.1 % 01/27/2025 12:31 PM [facility] % LYMPH 13.4 % 01/27/2025 12:31 PM [facility] % MONO 8.0 % 01/27/2025 12:31 PM [facility] % EOS 0.9 % 01/27/2025 12:31 PM [facility] % BASO 0.6 % 01/27/2025 12:31 PM [facility] ABSOLUTE NEUTROPHILS 6.7 1.7 - 7.0 thou/cu mm 01/27/2025 12:31 PM [facility] ABSOLUTE LYMPHOCYTES 1.2 0.9 - 2.9 thou/cu mm 01/27/2025 12:31 PM [facility] ABSOLUTE MONOCYTES 0.7 <0.9 thou/cu mm 01/27/2025 12:31 PM [facility] ABSOLUTE EOSINOPHILS 0.1 <0.5 thou/cu mm 01/27/2025 12:31 PM CDT [facility] ABSOLUTE BASOPHILS 0.1 <0.3 thou/cu mm 01/27/2025 12:31 PM CDT [facility] Blood BLOOD SPECIMEN / Unknown Venipuncture / Unknown 01/27/2025 12:24 PM CDT 01/27/2025 12:27 PM CDT Salvador RUBIN HEMATOLOGY Fin al Result Performing Organization Address [facility] Co de Phone Number [facility] [address] [address] * ETHANOL SERUM OR PLASMA (01/27/2025 12:24 PM CDT) ETHANOL <0.010 <0.010 g/dL 01/27/2025 12:49 PM CDT [facility] Blood BLOOD SPECIMEN / Unknown Venipuncture / Unknown 01/27/2025 12:24 PM CDT 01/27/2025 12:27 PM CDT Salvador RUBIN CHEMISTRY Fin al Result Performing Organization Address [facility] Phone Number [facility] [address] [phone] * MAGNESIUM (01/27/2025 12:24 PM CDT) MAGNESIUM 2.0 1.6 - 2.6 mg/dL 01/27/2025 12:52 PM CDT [facility] Blood BLOOD SPECIMEN / Unknown Venipuncture / Unknown 01/27/2025 12:24 PM CDT 01/27/2025 12:27 PM CDT Salvador RUBIN CHEMISTRY Fin al Result Performing Organization Address [facility] Phone Number [facility] [address] [phone] * LIPASE (01/27/2025 12:24 PM CDT) LIPASE 32.6 13.0 - 60.0 IU/L 01/27/2025 12:52 PM CDT [facility] Blood BLOOD SPECIMEN / Unknown Venipuncture / Unknown 01/27/2025 12:24 PM CDT 01/27/2025 12:27 PM CDT us Salvador RUBIN CHEMISTRY Fin al Result Performing Organization Address City/State/[facility] Co de Phone Number [facility] [address] [address] * HEPATIC FUNCTION PANEL (01/27/2025 12:24 PM CDT) ALBUMIN 4.0 4.0 - 4.9 g/dL 01/27/2025 12:52 PM CDT [facility] PROTEIN,TOTAL 7.1 6.0 - 8.0 g/dL 01/27/2025 12:52 PM T [facility] BILIRUBIN,TOTAL <0.2 0.0 - 1.2 mg/dL 01/27/2025 12:52 PM T [facility] BILIRUBIN,DIRECT <0.1 0.0 - 0.2 mg/dL 01/27/2025 12:52 PM T [facility] BILIRUBIN,INDIRE CT 01/27/2025 12:52 PM T [facility] Comment:Unable to calculate, Direct Bili <0.1 ALK PHOSPHATASE 70 40 - 129 IU/L 01/27/2025 12:52 PM T [facility] ALT (SGPT) 18 10 - 50 IU/L 01/27/2025 12:52 PM T [facility] AST (SGOT) 19 10 - 50 IU/L 01/27/2025 12:52 PM T [facility] Blood BLOOD SPECIMEN / Unknown Venipuncture / Unknown 01/27/2025 12:24 PM CDT 01/27/2025 12:27 PM CDT us Salvador RUBIN CHEMISTRY Fin al Result [facility] [address] [phone] * (ABNORMAL) BASIC METABOLIC PANEL (01/27/2025 12:24 PM CDT) SODIUM 138 136 - 145 mmol/L 01/27/2025 12:52 PM [facility] POTASSIUM 4.3 3.5 - 5.1 mmol/L 01/27/2025 12:52 PM [facility] CHLORIDE 102 98 - 107 mmol/L 01/27/2025 12:52 PM [facility] CO2,TOTAL 23 22 - 29 mmol/L 01/27/2025 12:52 PM [facility] ANION GAP 13 5 - 18 01/27/2025 12:52 PM [facility] GLUCOSE 129(H) 70 - 99 mg/dL 01/27/2025 12:52 PM [facility] CALCIUM 9.4 8.8 - 10.4 mg/dL 01/27/2025 12:52 PM [facility] Comment: Reference ranges for this test were updated on 04/08/2024 to reflect our healthy population more accurately. Reference range changes are not retroactively applied to results, but previous results using the same methodology can be interpreted in the context of the new reference range. BUN 23(H) 6 - 20 mg/dL 01/27/2025 12:52 PM [facility] CREATININE 1.07 0.70 - 1.20 mg/dL 01/27/2025 12:52 PM [facility] BUN/CREAT RATIO 21(H) 10 - 20 12:52 PM [facility] eGFR 89(L) >90 mL/min/1.7 3m2 01/27/2025 12:52 PM [facility] Comment:As of 2021, eG FR is calculated by the CKD-EPI creatinine equation without race adjustment. eGFR can be influenced by muscle mass, exercise, and diet. The reported eGFR is an estimation only and is only applicable if the renal function is stable. Blood BLOOD SPECIMEN / Unknown Venipuncture / Unknown 01/27/2025 12:24 PM CDT 01/27/2025 12:27 PM T us Salvador RUBIN CHEMISTRY Fin al Result [facility] [address] [place] [phone] * UA W/ SEDIMENT EXAM REFLEXED PER CRITERIA (01/27/2025 12:12 PM CDT) COLOR Yellow Yellow Color 01/27/2025 12:19 PM T [facility] CLARITY Clear Clear Clarity 01/27/2025 12:19 PM [facility] SPECIFIC GRAVITY,URINE 1.020 1.010, 1.015, 1.020, 1.025 01/27/2025 12:19 PM [facility] PH,URINE 6.0 6.0, 7.0, 8.0, 5.5, 6.5, 7.5, 8.5 01/27/2025 12:19 PM [facility] UROBILINOGEN,Q UALITATIVE Normal Normal EU/dl 01/27/2025 12:19 PM [facility] PROTEIN, URINE Negative Negative mg/dL 01/27/2025 12:19 PM [facility] GLUCOSE, URINE Negative Negative mg/dL 01/27/2025 12:19 PM [facility] KETONES,URINE Negative Negative mg/dL 01/27/2025 12:19 PM [facility] BILIRUBIN,URIN E Negative Negative 01/27/2025 12:19 PM [facility] OCCULT BLOOD,URINE Negative Negative 01/27/2025 12:19 PM [facility] NITRITE Negative Negative 01/27/2025 12:19 PM [facility] LEUKOCYTE ESTERASE Negative Negative 01/27/2025 12:19 PM [facility] Urine URINE SPECIMEN / Unknown Non-Blood / Unknown 01/27/2025 12:12 PM CDT 01/27/2025 12:16 PM CDT us Salvador Cochran PA URINE Fin al Result [facility] [address] [phone] * (ABNORMAL) LC LIPID PANEL AND CHOL/HDL RATIO (09/28/2022 8:27 AM CDT) [facility] Cholesterol, Total 182 100 - 199 mg/dL 09/30/2022 10:09 AM CDT [facility] Triglycerides 69 0 - 149 mg/dL 09/30/2022 10:09 AM CDT [facility] ([facility]) HDL Cholesterol 56 >39 mg/dL 10:09 AM T [facility] VLDL Cholesterol Markel 13 5 - 40 mg/dL 09/30/2022 10:09 AM CDT [facility] ([facility] LDL Chol Calc ([facility]) 113(H) 0 - 99 mg/dL 09/30/2022 10:09 AM T [facility] ([facility]) T. Chol/HDL Ratio 3.3 0.0 - 5.0 ratio 09/30/2022 10:09 AM T [facility] ([facility]) Comment: T. Chol/HDL Ratio Men Women 1/2 Avg.Risk 3.4 3.3 Avg.Risk 5.0 4.4 2X Avg.Risk 9.6 7.1 3X Avg.Risk 23.4 11.0 Blood BLOOD SPECIMEN / Unknown Venipuncture / Unknown 09/28/2022 8:27 AM CDT 09/28/2022 8:29 AM CDT Narrative [facility] ([facility]) - 09/30/2022 10:09 AM CDT Performed at: [address] [place] [address] [address] [place], [place] [id number] Brim Flexer: Vin Hensley MD, Phone: [phone] Lamont Mccoy MD SEND OUTS Final R esult Performing Organization Address City/[facility]/ZIP Co de Phone Number [facility] ([facility]) [address] [place] [address], * LC HCV ANTIBODY RFX TO QUANT PCR (09/28/2022 8:27 AM CDT) HCV Ab Non Reactive Non Reactive 09/30/2022 2:08 PM CDT [facility] ([facility]) Blood BLOOD SPECIMEN / Unknown Venipuncture / Unknown 09/28/2022 8:27 AM CDT 09/28/2022 8:29 AM CDT Narrative [facility] ([facility]) - 09/30/2022 2:08 PM CDT Performed at: [facility] [address] [place], [place] [id number] Brim Flexer: Vin Hensley MD, Phone: [phone] Lamont Mccoy MD LABORATORY Final R esult Performing Organization Address City/[facility]/ZIP Co de Phone Number [facility] ([facility]) [address] [place] [address], * HIV-1/O/2, 4TH GENERATION (09/28/2022 8:27 AM CDT) Pathologist [facility] HIV Scr 4th Gen Non Reactive Non Reactive 09/30/2022 12:07 PM CDT [facility] ([facility]) Comment: HIV Negative HIV-1/HIV-2 antibodies and HIV-1 p24 antigen were NOT detected. There is no laboratory evidence of HIV infection. Blood BLOOD SPECIMEN / Unknown Venipuncture / Unknown 09/28/2022 8:27 AM CDT 09/28/2022 8:29 AM CDT Narrative [facility] ([facility]) - 09/30/2022 12:07 PM CDT Performed at: [address] [place], [place] [address] [id number] Brim Flexer: Vin Hensley MD, Phone: [phone] Lamont Mccoy MD LABORATORY Final R esult [facility] ([facility]) [facility] [place] [address], from Last 3 Months or Most Recently [...] 10:53 PM 06/13/2011 3:00 PM Care Teams Auxiliary Equipment Operator Relationship Specialty Start Date End Date Pcp, No . PCP - General 06/15/13
--- NOTE | 2025-02-10 23:19 | ED_ITS ---
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 mmol/L Calcium 9.1 (8.4-10.6) mg/dL Total Creatine Kinase 651 H (54-186) U/L Troponin I < 0.01 (0.01-0.04) ng/mL Salicylates < 1.0 L (1.0-10) mg/dL Acetaminophen < 10.0 (10.0-30.0) ug/mL Ethyl Alcohol < 0.01 (0.01-0.03) % POC Troponin I 0.01 (0.01-0.04) ng/ml <Mildred Tripathi MD - Last Filed: 02/11/25 06:34> Imaging Data Chest x-ray: Attestation: I have reviewed the pertinent imaging results. <Mildred Tripathi MD - Last Filed: 02/11/25 06:34> My impression: No severe rib fractures, no pneumothorax. No severe pulmonary edema or signs of major cardiac enlargement. Surprisingly good chest x-ray <Mildred Tripathi MD - Last Filed: 02/11/25 06:34> Radiologist's impression: FINDINGS: Cardiovascular and mediastinum: Cardiomediastinal silhouette is within normal limits. Lungs and pleural spaces: Again demonstrated multiple bilateral calcified granulomas. No consolidation. No pleural effusions or pneumothorax. Bones and soft tissues: No significant findings. IMPRESSION: No evidence of acute pulmonary process. Dictated by Casey Mai MD @ 02/11/2025 12:11:52 AM <Mildred Tripathi MD - Last Filed: 02/11/25 06:34> ECG Data Attestation: I personally reviewed and interpreted this ECG as follows: <Mildred Tripathi MD - Last Filed: 02/11/25 06:34> Prior ECG tracings: not available for review <Mildred Tripathi MD - Last Filed: 02/11/25 06:34> Interpretation: Sinus tachycardia with a rate of 102. Normal intervals, slight leftward axis. QRS is very mildly widened but certainly not diagnostic for in type of septal injury. Normal T-waves. Overall fairly normal-appearing EKG <Mildred Tripathi MD - Last Filed: 02/11/25 06:34> Critical Care Time Critical Care Time Critical Care Time: Yes Attestation: The patient required my highest level preparedness to intervene emergently and I personally spent this critical care time directly and personally managing the patient. This critical care time included: Obtaining a history; Examining the patient; Pulse oximetry; Ordering and reviewing of studies; Arranging urgent treatment with development of a management plan; Evaluation of patients response to treatment; Frequent reassessment discussions with other providers. This critical care time was performed to assess and manage the high probability of imminent life-threatening deterioration that could result in multiorgan failure. It was exclusive of separate billable procedures and treating other patients and teaching time. <Gene Pugh MD - Last Filed: 02/11/25 00:01> Total Critical Care Time in Minutes: 50 <Gene Pugh MD - Last Filed: 02/11/25 00:01> Discharge Plan Discharge Clinical Impression: Opiate overdose, Cardiac arrest <Gene Pugh MD - Last Filed: 02/11/25 00:01> Patient Disposition: Home w/ Parent or Adult <Gene Pugh MD - Last Filed: 02/11/25 00:01> Condition: Improved <Gene Pugh MD - Last Filed: 02/11/25 00:01> Instructions: Polysubstance Use Disorder (ED) <Gene Pugh MD - Last Filed: 02/11/25 00:01> Additional Instructions: As we discussed, the episode that you had tonight was most likely triggered by an overdose of opiate medication. Your heart had completely stopped as result of you stopping breathing. You were given CPR and Narcan to help revive you. You were clinically . I am thankful that you were able to get help so quickly. The most important factor after these episodes is restoring blood flow to the brain, heart, kidneys and other vital organs. But we may not know the full extent of any damage initially. There does not appear to be any large neurological or cardiac deficits. But subtle things may not fully declare themselves for a few days. I would like for you to take it easy for the next [address] drugs, alcohol or other toxins for the next 2 weeks. Drink plenty of fluids and get adequate sleep. I would like few to consider making a follow-up appointment with a primary care provider in about a week to get a repeat EKG, recheck of kidney function, liver function and electrolytes. This may help us detect any more subtle damage that was not apparent initially. Please keep the opiate reversal packets that were given to you by law enforcement. Please teach anyone in your house hold about them with the instructions provided in the packet. You never know whose life you may save by having these in your possession. You may resume all of your other prescription medications exactly as you typically take them. Your chest will be sore from the CPR but there does not seem to be any evidence of a sternal fracture or major rib fractures on x-ray. It is safe for you to use Tylenol 1000 mg every 6 hours and or ibuprofen 600 mg every 6 hours for discomfort. <Gene Pugh MD - Last Filed: 02/11/25 00:01> Activity Level: No strenuous activity <Gene Pugh MD - Last Filed: 02/11/25 00:01> No strenuous activity <Mildred Tripathi MD - Last Filed: 02/11/25 06:34> Discharge Diet: Regular <Gene Pugh MD - Last Filed: 02/11/25 00:01> Regular <Mildred Tripathi MD - Last Filed: 02/11/25 06:34> Prescriptions: No Action risperidone 4 mg tablet 4 mg PO QPM propranolol 60 mg capsule,extended release 24 hr 60 mg PO DAILY divalproex 500 mg tablet extended release 24 hr 500 mg PO 3XD loratadine 10 mg tablet 10 mg PO DAILY escitalopram oxalate 20 mg tablet 20 mg PO DAILY omeprazole 20 mg capsule,delayed release(DR/EC) 20 mg PO DAILY Qty: 90 2RF varenicline tartrate [Chantix] 1 mg tablet 1 mg PO BID oxcarbazepine 600 mg tablet 600 mg PO BID escitalopram oxalate 10 mg tablet 10 mg PO DAILY Ozempic 0.25 mg or 0.5 mg (2 mg/3 mL) pen injector 0.25 mg subcut QWEEK Rx Instructions: inject 0.25mg under the skin every 7 days for 28 days, THEN inject 0.5mg every 7 days. <Gene Pugh MD - Last Filed: 02/11/25 00:01> Follow Up/Referrals: Provider,Not a Local [Primary Care Provider, Family Practice] <Gene Pugh MD - Last Filed: 02/11/25 00:01> Stand Alone Forms: [facility] Info Instructions <Gene Pugh MD - Last Filed: 02/11/25 00:01>
[2025-02-10 23:34] LABS: Lactate* 5.8 mmol/L (0.5-1.9)
[2025-02-10 23:35] LABS: Hematocrit* 43.0 % (37.0-53.0); Hemoglobin* 13.8 gm/dL (13.5-17.5); Immature Granulocytes Abs Auto 0.09 K/uL (0.00-0.30); Immature Granulocytes Pct Auto 1.0 %; Lymphocytes Absolute Auto 2.63 K/uL (0.90-2.90); Mean Corpuscular HGB Conc 32 gm/dL (32-36); Mean Corpuscular Hemoglobin 29 pg (26-34); Mean Corpuscular Volume 89 fL (80-100); RDW Coefficient of Variation % 13.0 % (11.5-15.5); Red Blood Count* 4.83 m/uL (4.30-5.90); White Blood Count* 8.67 K/uL (4.50-11.00)
[2025-02-10 23:37] LABS: Slide Review Reflex No
[2025-02-10] MEDS: ONDANSETRON 2 MG/ML inj 4 MG IVP (23:46)
[2025-02-10 23:49] LABS: Chloride* 100 mmol/L (96-114); Potassium* 3.8 mmol/L (3.6-5.1); Sodium* 134 mmol/L (135-149)
[2025-02-10 23:51] LABS: Blood Urea Nitrogen* 24 mg/dL (5-24); Creatine Kinase* 651 U/L (54-186); Creatinine* 1.6 mg/dL (0.5-1.5); Estimated Glomerular Filt Rate 55 ml/min
[2025-02-10 23:52] LABS: Anion Gap 12 mEq/L (7-15); Calcium* 9.1 mg/dL (8.4-10.6); Carbon Dioxide* 22 mmol/L (20-32); Glucose* 241 mg/dL (60-115)
[2025-02-10 23:53] LABS: Acetaminophen* < 10.0 ug/mL (10.0-30.0); Ethanol* < 0.01 % (0.01-0.03); Salicylate* < 1.0 mg/dL (1.0-10)
[2025-02-10 23:54] VITALS: PULSE 94; RESP 16; O2SAT 92
[2025-02-11] VITALS (51 sets, daily range): BP systolic 91–137; BP diastolic 59–97; PULSE 88–98; RESP 12–25; O2SAT 89–98
[2025-02-11 00:07] LABS: Troponin, Point-of-Care* 0.01 ng/ml (0.01-0.04)
--- OUTSIDE RECORDS SUMMARY | 2025-02-11 01:48 | XMS_ITS | Encounter Summary ---
Author Organization [facility] Address [address] [place] [address] Care Team Providers Care Sql Developer Dba Name Role Phone Stefanie Donis APRN, C.N.P. Primary Care Provi amie Encounter Details Date Type Department Care Team (Late st Contact Info) Description 01/06/2025 Orders Only [facility] PCP TH MNT Stefanie Donis APRN, C.N.P. [address] [place] [address] Social History Tobacco Use Types [...] needed for daily living? 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 [address], [place] [address] PCP - General Family Medicine 08/20/24 documented as of this encounter
--- OUTSIDE RECORDS SUMMARY | 2025-02-11 01:48 | XMS_ITS | Encounter Summary ---
Author Organization [facility] Address [address] [place] [address] Care Team Providers Care Marketing Operations Consultant Name Role Phone Stefanie Donis APRN, C.N.P. Primary Care Provi amie Reason for Visit * Reason Comments Med Refill Encounter Details Date Type Department Care Team (Late st Contact Info) Description 01/23/2025 Refill Department of Family Medicine, [facility], in [place], [place] [address] [address] Stefanie Donis APRN, C.N.P. [address] [place] [address] Med Refill Social History Tobacco [...] for daily living? 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 [address] [place] [address] PCP - General Family Medicine 08/20/24 documented as of this encounter
--- OUTSIDE RECORDS SUMMARY | 2025-02-11 01:48 | XMS_ITS | Encounter Summary ---
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
--- OUTSIDE RECORDS SUMMARY | 2025-02-11 01:48 | XMS_ITS | Clinical Summary ---
Author Organization [facility] Address [address] [place] [address] Care Team Providers Care Central Supply Assistant Name Role Phone Meng Conner MD Primary [...] for each transition of care or referral. [employer] Allergies Active Allergy Reactions Criticality Noted Date [...] (07/26/2022): Added automatically from request for surgery [id number] Chronic pain of right knee 05/24/2022 Overview (05/24/2022): Added automatically from request for surgery [id number] Effusion of right knee 05/24/2022 Overview (05/24/2022): Added automatically from request for surgery [id number] Painful orthopaedic hardware 05/24/2022 Overview (05/24/2022): Added automatically from request for surgery [id number] Multiple fractures of pelvis with stable disruption of pelvic chenega with routine healing 03/13/2015 Femur fracture, right [...] 11/20/2024 6:50 PM CDT Ancillary Procedure [facility] [address] [place] [phone] Jordon Brito MD 11/20/2024 6:00 PM CDT Ancillary Procedure [facility] [address] [address] [address] [place] [address] Jordon Brito MD Acute pain of right shoulder 11/20/2024 5:55 PM CDT Ancillary Procedure [facility] [address] [address] [address] [place] [phone] Jordon Brito MD Chronic right-sided low back pain with right-sided sciatica (HRC) 11/20/2024 5:40 PM CDT Office Visit [facility] [address] [address] [address] [place] [address] Jordon Brito MD Acute pain of right shoulder (Primary Dx); Chronic right-sided low back pain with right-sided sciatica (HRC); Impingement of right shoulder; Lumbar radiculopathy; Osteoarthritis of right AC (acromioclavicular) joint from Last 3 Months Immunizations Immunization Administration Dates Next Due 9vHPV (Gardasil 9) 06/08/2022 Flu Vac (3+ yrs) 04/11/2007 Fluzone Qiv Multidose Vial 0.25 (6-35 Mos) 04/29 Influenza IIV4 (Quadrivalent) 0.5mL (90330) 03/04,08/22/2013 PPSV23 (Pneumovax) 08/22/2013 Tdap 02/22/2015,02/13/2007 Social History Tobacco Use Types Packs/Day Years Used Date Smoking Tobacco: Former Cigarettes Q uit: 01/2023 Smokeless Tobacco: Never Alcohol Use Standard Drinks/Week Comments No 0 (1 standard drink = 0.6 oz pur e alcohol) [facility] Utilities Answer Date Recorded In the past [address] [facility] Datical, gas, oil, or water [employer] threatened to shut off services in your [...] place to sleep or slept in a group home (including now)? Yes 12/23/2023 Sex and Gender [...] 12:29 AM 07/22/2013 2:01 PM Care Teams Central Supply Assistant Relationship Specialty Start Date End Date Meng Conner MD [address] [facility], [address] PCP - General 02/03/16
--- OUTSIDE RECORDS SUMMARY | 2025-02-11 01:48 | XMS_ITS | Encounter Summary ---
Author Organization [facility] Address [address] [place] [address] Care Team Providers Care Interpreter Deaf Name Role Phone Stefanie Donis APRN C.N.PPaola Primary Care Provi amie Reason for Visit * Reason Onset Date Comments Post Hospital Follow-up 01/06/2025 Encounter Details Date Type Department Care Team (Latest Contact Info) Description 01/06/2025 Clinical Communication [facility] [address] [place] [phone] Mikki Ballard M.D. [address] [place] [phone] Post Hospital Follow-up Social History Tobacco Use [...] needed for daily living? 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 [address] [place] [address] PCP - General Family Medicine 08/20/24 documented as of this encounter
--- OUTSIDE RECORDS SUMMARY | 2025-02-11 01:48 | XMS_ITS | Encounter Summary ---
Author Organization [facility] Address [address] [place] [address] Care Team Providers Care Copy Center Specialist Name Role Phone Avani Flowers Md Primary Care Provider Gene Mcgregor MD Primary Care Provider [phone] No Ref-Primary, Physician Primary Care Provider Leah Dale APRN IT HELP DESK ASSOCIATE Primary Care Provider Meng Conner MD Primary Care Provider [phone] [facility] Primary Care Provide r [facility] Primary Care Provider Encounter Details Date Type Department Care Team (Late st Contact Info) Description 11/17/2009 [place] [address] [place] [address] Meng Conner MD XXX RESIGNED XXX [address] [place] [address] [facility] SUMMARY Social History Tobacco Use Types Packs/Day Years Used Date Smoking Tobacco: Former Cigarettes 0.3 1 Smokeless Tobacco: Former Quit: 09/02/2013 Comments:e cig Alcohol Use Standard Drinks/Week Comments No 0 (1 standard drink = 0.6 oz pur e alcohol) Sex and Gender Information Value Date Recorded Sex Assigned at Not on file 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 Gender Identity Not on file Sexual Orientation Not on file documented as of this encounter Plan of Treatment Not on file documented as of this encounter Visit Diagnoses Diagnosis [facility] SUMMARY- Primary documented in this encounter Additional Health Concerns Infection Onset Date Last Indicated Resolved Time MRSA-Contact Isolation Comment:MRSA: 01-21-02 skin and sputum Infection erroneous 06/06/2021 11 :03 AM FOUNTAIN ROLLER ASSEMBLER MRSA 06/23/2021 06/23/2021 10/16/2023 9:21 AM CDT COVID-19 05/10/2024 05/10/2024 05/21/2024 11:4 1 PM FOUNTAIN ROLLER ASSEMBLER documented as of this encounter Care Teams Copy Center Specialist Relationship Specialty Start Date End Date Avani Flowers Md PCP - General 03/07/12 05/29/13 Gene Laws MD [address] [facility] [address] [place], [place] [address] PCP - General Psychiatry 05/30/13 05/30/13 No Ref-Primary, Physician PCP - General 06/23/13 09/19/13 Leah Dale APRN IT HELP DESK ASSOCIATE PCP - General Nurse Practitioner - Adult Health 09/20/13 01/10/15 Meng Conner MD PCP - General Internal Medicine 12/13/15 07/12/[address] [address] PCP - General 10/16/22 10/14/[address] [address] PCP - General Internal Medicine 10/15/23 documented as of this encounter
--- OUTSIDE RECORDS SUMMARY | 2025-02-11 01:48 | XMS_ITS | Clinical Summary ---
Author Organization [facility] Address [address] [place] [address] Care Team Providers Care Asp Developer Name Role Phone [facility] Primary Care Provider Allergies Active Allergy Reactions [...] in an abandoned building, in an overnight custodial, or couch-surfing.) Yes 10/20/2024 Are you worried [...] on file Legal Sex Male 3:10 AM ACTUARIAL ASSISTANT Gender Identity Not on file Sexual Orientation [...] 99.8 kg (220 lb) 07/15/2024 7:00 AM ACTUARIAL ASSISTANT Height 172.7 cm (5' 8) 07/09/2024 8:01 PM ACTUARIAL ASSISTANT Body Mass Index 33.45 07/09/2024 8:01 PM ACTUARIAL ASSISTANT Plan of Treatment Health Maintenance Due Date [...] CDT LIPID PROFILE Routine 07/10/2024 7:54 AM ACTUARIAL ASSISTANT HEPATITIS C ANTIBODY Routine 07/03/2013 4:59 PM ACTUARIAL ASSISTANT from Last 3 Months or Most Recently [...] - 99 mg/dL 10/20/2024 3:12 AM CDT [facility] Alkaline Phosphatase 74 40 - 150 U/L 10/20/2024 3:12 AM CDT [facility] AST 24 0 - 45 U/L 10/20/2024 3:12 AM CDT [facility] ALT 18 0 - 70 U/L 10/20/2024 3:12 AM CDT [facility] Protein Total 7.5 6.4 - 8.3 g/dL 10/20/2024 3:12 AM CDT [facility] Albumin 4.1 3.5 - 5.2 g/dL 10/20/2024 3:12 AM CDT [facility] Bilirubin Total <0.2 <=1.2 mg/dL 10/20/2024 3:12 AM CDT [facility] LAB[facility] Blood STRUCTURE OF RIGHT UPPER LIMB / Unknown Venipuncture / Unknown 10/20/2024 2:50 AM CDT 10/20/2024 2:53 AM CDT Kailey Jarquin MD LAB - BLOOD ORDERABLES F inal Result OR LABORATORY [facility] Acute [facility] Lab [address] Room [address] [place] [phone] * (ABNORMAL) Lipid panel (07/10/2024 7:54 AM ACTUARIAL ASSISTANT) Cholesterol 194 <200 mg/dL 07/10/2024 9:52 AM ACTUARIAL ASSISTANT [facility] LAB[facility]ORY Triglycerides 598(H) <150 mg/dL 07/10/2024 9:52 AM ACTUARIAL ASSISTANT [facility] Direct Measure HDL 39(L) >=40 mg/dL 07/10/2024 9:52 AM ACTUARIAL ASSISTANT [facility] LAB[facility] LDL Cholesterol Calculated 07/10/2024 9:52 AM ACTUARIAL ASSISTANT [facility] Comment:Cannot estimate LDL when triglyceride exceeds 400 mg/dL Non HDL Cholesterol 155(H) <130 mg/dL 07/10/2024 9:52 AM ACTUARIAL ASSISTANT UR LAB[facility] Blood STRUCTURE OF RIGHT UPPER LIMB / Unknown Venipuncture / Unknown 07/10/2024 7:54 AM ACTUARIAL ASSISTANT 07/10/2024 8:52 AM ACTUARIAL ASSISTANT Narrative UR LAB[facility]ATORY - 07/10/2024 9:52 AM ACTUARIAL ASSISTANT Cholesterol Desirable: < 200 mg/dL Borderline High: [...] BLOOD ORDERABLES F inal Result UR LABORATORY [facility] Lab [address] [place] [address], [address] * Hepatitis C antibody (07/03/2013 4:59 PM ACTUARIAL ASSISTANT) Hepatitis C Antibody Negative NEG [facility] Blood specimen (specimen) 07/03/2013 4:59 PM ACTUARIAL ASSISTANT 07/03/2013 5:00 PM ACTUARIAL ASSISTANT us Cinthia Arias PA-C LAB - BLOOD ORDERAB LES Final Result [facility] [address] from Last 3 Months or Most Recently Relevant to Health Maintenance Insurance MEDICARE MEDICARE MEDICARE Advance Directives For more information, please contact: [phone] * Full Code (Latest Code Status on [...] 12:59 PM 11/07/2013 4:01 PM Care Teams Asp Developer Relationship Specialty Start Date End Date [facility] - [address] [address] PCP - General Internal Medicine 10/15/23
--- OUTSIDE RECORDS SUMMARY | 2025-02-11 01:48 | XMS_ITS | Encounter Summary ---
Author Organization [facility] Address [address] [place] [address]. [place] [address] Care Team Providers Care Senior Graphic Designer Name Role Phone Clinic - [facility] Primary Care Provider Reason for Visit * Reason Onset Date Comments MH/CD Inpatient 07/08/2024 Encounter Details Date Type Department Care Team ([facility] st Contact Info) Description 07/08/2024 Telephone [facility] Behavioral Health Intake [address] [place] [address] Generic, Behavioral Intake, MH/CD Inpatient [...] in an abandoned building, in an overnight half-way, or couch-surfing.) No 07/09/2024 Are you worried [...] file Legal Sex Male 3:10 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 [facility] is posting 0 beds. [facility] is posting 7 beds. [phone]: Per RN @ 12:19PM, they are already reviewing otherreferrals. She suggests calling back after 5PM [facility] is posting 0 beds. Negative covid required. [facility] is posting 0 beds. Neg covid. No high school/Kemi-psych. [phone]. Per Brittany @ 12:20PM, they are full today but Intake can call back tomorrow [facility] is posting 0 beds. [phone]. [facility] is posting 0 beds. [phone]. [facility] is posting 6 beds. (Ages 18-35) Negative covid, no aggression, physical or sexual assault, violence hx or drug abuse, or psychosis. [phone]; Per Nav @ 3:15PM, no YA beds [facility] is posting 0 beds. [facility] is posting 0 beds [phone]. Per Yoselin @ 12:22PM, [facility] is at full capacity until tomorrow after 8AM TAL MEDIA INTERN documented in this encounter Plan of Treatment Not on file documented as of this encounter Visit Diagnoses Not on filedocumented in this encounter Care Teams Senior Graphic Designer Relationship Specialty Start Date End Date Clinic - [address] [address] PCP - General Internal Medicine 10/15/23 documented as of this encounter
--- OUTSIDE RECORDS SUMMARY | 2025-02-11 01:48 | XMS_ITS | Clinical Summary ---
Author Organization [facility] Address [address] [place] [address] Care Team Providers Care Carcass Splitter Name Role Phone Stefanie Donis APRN C.N.PPaola Primary Care Provi amie Source Comments Patient records contain information from all sites at [facility]. For routine questions regarding patient records, call [phone] during business hours, M-F 8:00 AM - 5:00 PM Central Time. Record requests for emergency care only can be directed to [phone] at any time.[facility] Allergies No known active allergies Medications * [...] CDT - 02/07/2025 11:43 PM CDT Emergency [facility] Emergency Department [address] [place] [address] Justen Bergman D.O. Other Esophagitis Without Bleeding (Primary Dx); Other Dysphagia Discharge Disposition: Home or Self Care 01/27/2025 11:57 AM CDT - 01/27/2025 11:59 PM CDT Emergency [facility] [address] [place] [address] Discharge Disposition: Home or Self Care 01/23/2025 Refill Department of Family Medicine, [facility], in [place], [place] [address] [place] [phone] Stefanie Donis, ROAD MANAGER, C.N.P. Med Refill 01/23/2025 Orders Only Department of [facility], [facility], in [place], [place] [address] [place] [phone] Stefanie Donis APRN, C.N.P. 01/14/2025 12:00 PM CDT Office Visit Department [facility], [facility], in [place], [place] [address] [place] [phone] Stefanie Donis APRN, C.N.P. Benji Hoang R.N. Annual Medicare Examination Return (Primary Dx) 01/14/2025 11:30 AM CDT Office Visit Department of [facility], [facility], in [place], [place] [address] [place] [phone] Stefanie Donis APRN, C.N.P. Obesity Body Mass Index 30-39.9 Adult (Primary Dx); Schizoaffective Disorder (HCC) 01/06/2025 Clinical Communication [facility] [address] [place] [phone] Mikki Ballard M.D. Post Hospital Follow-up 01/06/2025 Orders Only [facility] PCP [facility] MNT Stefanie Donis APRN, C.N.P. 12/25/2024 Clinical Communication Department of Nicotine Dependence, [facility], in [place], [place] [address] [place] [phone] Brigid Marx M.S., L.A.Gabriel.C., C.T.T.S. ND med request 11/18/2024 Clinical Communication Department of Ophthalmology in [place], [place] [address] [place] [phone] Anel Vale from Last 3 Months Immunizations [...] needed for daily living? Patient declined 12/26/2024 [facility] Utilities Answer Date Recorded In the past 12 months has e [employer], gas, oil, or water company threatened to shut off services in your home? Patient declined 12/26/2024 Depression Answer Date Recor ded PHQ-9 Total Score (max 27) 13 01/06 Housing Stability Answer Date Recorded What is your living situatio n today? 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 LAB BLOOD ADD-ON Final Result [facility] [address] [place] [address], [facility] STMA [facility] 200 [place] [address] * Type and Screen (with Reflex Antibody ID) (02/07/2025 9:44 PM CDT) Pathologist [facility] ABORh A Pos Not applicable 02/07/2025 10:16 PM CDT STRM Antibody Screen Negative Negative 02/07/2025 10:32 PM CDT STRM Type & Screen Expiration 02/10/2025 23:59 02/07/2025 10:16 PM CDT STRM Testing Location Izzy DEFAULT 02/07/2025 9:52 PM CDT STRM Blood (Blood, Venous) 02/07/2025 9:44 PM CDT 02/07/2025 9:52 PM CDT Justen Bergman D.O. LAB BLOOD BANK TEST ORD ERABLES Final Result Performing Organization Address City/[facility]/ZIP Co de Phone Number [facility] [address] [place] [address], [facility] STRM [facility] [address] [place] [address] * Lactate (02/07/2025 9:44 PM CDT) Lactate, P 2.1 0.5 - 2.2 mmol/L 02/07/2025 10:03 PM CDT STMA Blood (Blood, Venous) 02/07/2025 9:44 PM CDT 02/07/2025 9:49 PM CDT Justen Bergman D.O. LAB BLOOD NON ADD-ON Fi nal Result [facility] [address] [place] [address], [facility] ST[facility] [address] [place] [address] * (ABNORMAL) CBC with Differential, Blood (02/07/2025 [...] Bergman D.O. LAB BLOOD ADD-ON Final Result [facility] [address] [place] [address], [facility] ST[facility] [address] [place] [address] DHPM [facility] [address] [place] [address] * (ABNORMAL) Basic Metabolic Panel (02/07/2025 9:43 [...] Bergman D.O. LAB BLOOD ADD-ON Final Result [facility] [address] [place] [address], [facility] [address] [place] [address] * (ABNORMAL) Lipid Panel (01/05/2025 9:02 AM [...] ADD-ON Final Res ult Performing Organization Address City/[facility]/ZIP Co de Phone Number [facility] [address] [place] [address] * (ABNORMAL) Sodium (01/05/2025 9:02 AM CDT) Sodium, S 134(L) 135 - 145 mmol/L 01/05/2025 10:14 AM CDT DTL Blood (Blood, Venous) 01/05/2025 9:02 AM CDT 01/05/2025 9:53 AM CDT Mikki Ballard M.D. LAB BLOOD ADD-ON Final Res ult Performing Organization Address City/[facility] [place] [address], [place] [address] * Drug Screen Urine (01/02/2025 8:48 AM [...] Ballard M.D. LAB URINE ORDERABLES Final Result [facility] [address] [place] [address], [place] DTL [facility] [address] [place] [address] * Phosphatidylethanol Confirmation (01/01/2025 2:41 PM CDT) PEth 16:0/18:1 (POPEth) by LC-MS/MS 152 Cutoff: 10 ng/mL 01/02/2025 10:34 AM CDT [facility] Comment: Phosphatidylethanol (PEth) homologues result interpretation [...] Cutoff: 10 ng/mL 01/02/2025 10:34 AM CDT [facility] Comment: PEth 16:0/18:2 (PLPEth) Reference ranges are not well established PEth Interpretation Positive. 01/02 10:34 AM CDT [facility] Comment: ----ADDITIONAL INFORMATION---- This report is intended for use in clinical monitoring and management of patients. It is not intended for use in employment-related testing. This test was developed and its performance characteristics determined by [facility] in a manner consistent with CLIA requirements. This test has not been cleared or approved by the U.S. Food and Drug Administration. Blood (Blood, Venous) 01/01/2025 2:41 PM CDT 01/01/2025 7:22 PM CDT Mikki Ballard M.D. LAB BLOOD ADD-ON Final Res ult [facility] [address] [place] [address] [facility] [address] [place] [address] [place] [address] * Ethanol Level, Serum (12/25/2024 7:36 AM CDT) Ethanol, S <10 <10 mg/dL 12/25/2024 8:5 4 AM CDT DTL Blood (Blood, Venous) 12/25/2024 7:36 AM CDT 12/25/2024 8:07 AM CDT Yvrose Rios P.A.-C. LAB BLOOD NON ADD-ON Cristina l Result Performing Organization Address City/[facility]/[place] [address] * S-TSH (Thyroid-Stimulating Hormone - Sensitive) (12/25/2024 7:36 AM CDT) Pathologist [facility] TSH, Sensitive 0.5 0.3 - 4.2 mIU/L 12/25/2024 8:54 AM CDT DTL Blood (Blood, Venous) 12/25/2024 7:36 AM CDT 12/25/2024 8:07 AM CDT Yvrose SorianoCPaola LAB BLOOD ADD-ON Final Re sult Performing Organization Address City/[facility]/[place] [address] * Acetaminophen Level (12/25/2024 7:36 AM CDT) Acetaminophen, S <7 Therapeutic Range: 10-30 mcg/mL 12/25/2024 8:54 AM CDT DTL Blood (Blood, Venous) 12/25/2024 7:36 AM CDT 12/25/2024 8:07 AM CDT Yvrose Rios P.A.-C. LAB BLOOD ADD-ON Final Re sult Performing Organization Address [facility] Co de Phone Number [facility] [address] [place] [address] * Salicylate Level (12/25/2024 7:36 AM CDT) Salicylate, S <0.3 <30.0 mg/dL 12/25/2024 8:54 AM CDT DTL Blood (Blood, Venous) 12/25/2024 7:36 AM CDT 12/25/2024 8:07 AM CDT Yvrose Rios P.A.-C. LAB BLOOD ADD-ON Final Re sult Performing Organization Address [facility] de Phone Number [facility] [address] [place] [address] * ECG 12 Lead (12/25/2024 7:17 AM CDT) Ventricular Rate ECG/Min 73 BPM MUSE SD Interval 148 ms MUSE QRSD Interval 100 ms MUSE QT Interval 370 ms MUSE QTC Interval 407 ms MUSE P [place] 61 degrees MUSE R [place] 63 degrees MUSE T Wave [place] 48 degrees MUSE 12/25/2024 7:17 AM CDT [...] Advance Directives For more information, please contact: [phone] * Full Code (Latest Code Status on File) Date Activated Date Inactivated Comments 12/25/2024 1:31 PM 01/07/2025 12:13 PM Question Answer Comments Full Code: Not Discussed Due to: Not medically appropriate Care Teams Carcass Splitter Relationship Specialty Start Date End Date Stefanie Donis APRN, C.N.P. [address] [place] [address] PCP - General Family Medicine 08/20/24
--- OUTSIDE RECORDS SUMMARY | 2025-02-11 01:48 | XMS_ITS | Encounter Summary ---
Author Organization [facility] Address [address] [place] [address] Care Team Providers Care Fur Dry Cleaner Name Role Phone Stefanie Donis APRN, C.N.P. Primary Care Provi amie Encounter Details Date Type Department Care Team (Late st Contact Info) Description 01/23/2025 Orders Only Department of Family Medicine, [facility], in [place], [place] [address] [phone] Stefanie Donis APRN, C.N.P. 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 [address] [place] [phone] PCP - General Family Medicine 08/20/24 documented as of this encounter
--- OUTSIDE RECORDS SUMMARY | 2025-02-11 01:49 | XMS_ITS | Clinical Summary ---
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 Gender Identity Not on file Sexual Orientation [...] - 11.0 thou/cu mm 01/27/2025 12:31 PM [facility] RED BLOOD COUNT 4.84 4.30 - 5.90 mil/cu mm 01/27/2025 12:31 PM [facility] HEMOGLOBIN 14.0 13.5 - 17.5 g/dL 01/27/2025 12:31 PM [facility] HEMATOCRIT 43.4 37.0 - 53.0 % 01/27/2025 12:31 PM [facility] MCV 90 80 - 100 fL 01/27/2025 12:31 PM [facility] MCH 28.9 26.0 - 34.0 pg 01/27/2025 12:31 PM [facility] MCHC 32.3 32.0 - 36.0 g/dL 01/27/2025 12:31 PM [facility] RDW 13.7 11.5 - 15.5 % 01/27/2025 12:31 PM [facility] PLATELET COUNT 278 140 - 440 thou/cu mm 01/27/2025 12:31 PM [facility] MPV 9.4 6.5 - 11.0 fL 01/27/2025 12:31 PM [facility] % NEUT 77.1 % 01/27/2025 12:31 PM [facility] % LYMPH 13.4 % 01/27/2025 12:31 PM [facility] % MONO 8.0 % 01/27/2025 12:31 PM [facility] % EOS 0.9 % 01/27/2025 12:31 PM [facility] % BASO 0.6 % 01/27/2025 12:31 PM [facility] ABSOLUTE NEUTROPHILS 6.7 1.7 - 7.0 thou/cu mm 01/27/2025 12:31 PM [facility] ABSOLUTE LYMPHOCYTES 1.2 0.9 - 2.9 thou/cu mm 01/27/2025 12:31 PM [facility] ABSOLUTE MONOCYTES 0.7 <0.9 thou/cu mm 01/27/2025 12:31 PM [facility] ABSOLUTE EOSINOPHILS 0.1 <0.5 thou/cu mm 01/27/2025 12:31 PM CDT [facility] ABSOLUTE BASOPHILS 0.1 <0.3 thou/cu mm 01/27/2025 12:31 PM CDT [facility] Blood BLOOD SPECIMEN / Unknown Venipuncture / Unknown 01/27/2025 12:24 PM CDT 01/27/2025 12:27 PM CDT Salvador RUBIN HEMATOLOGY Fin al Result Performing Organization Address [facility] Co de Phone Number [facility] [address] [phone] * ETHANOL SERUM OR PLASMA (01/27/2025 12:24 PM CDT) ETHANOL <0.010 <0.010 g/dL 01/27/2025 12:49 PM CDT [facility] Blood BLOOD SPECIMEN / Unknown Venipuncture / Unknown 01/27/2025 12:24 PM CDT 01/27/2025 12:27 PM CDT Salvador RUBIN CHEMISTRY Fin al Result Performing Organization Address [facility] Phone Number [facility] [address] [phone] * MAGNESIUM (01/27/2025 12:24 PM CDT) MAGNESIUM 2.0 1.6 - 2.6 mg/dL 01/27/2025 12:52 PM CDT [facility] Blood BLOOD SPECIMEN / Unknown Venipuncture / Unknown 01/27/2025 12:24 PM CDT 01/27/2025 12:27 PM CDT Salvador RUBIN CHEMISTRY Fin al Result Performing Organization Address [facility] de Phone Number [facility] [address] [address] * LIPASE (01/27/2025 12:24 PM CDT) LIPASE 32.6 13.0 - 60.0 IU/L 01/27/2025 12:52 PM CDT [facility] Blood BLOOD SPECIMEN / Unknown Venipuncture / Unknown 01/27/2025 12:24 PM CDT 01/27/2025 12:27 PM CDT us Salvador RUBIN CHEMISTRY Fin al Result Performing Organization Address City/State/[facility] Co de Phone Number [facility] [address] [phone] * HEPATIC FUNCTION PANEL (01/27/2025 12:24 PM CDT) ALBUMIN 4.0 4.0 - 4.9 g/dL 01/27/2025 12:52 PM CDT [facility] PROTEIN,TOTAL 7.1 6.0 - 8.0 g/dL 01/27/2025 12:52 PM T [facility] BILIRUBIN,TOTAL <0.2 0.0 - 1.2 mg/dL 01/27/2025 12:52 PM T [facility] BILIRUBIN,DIRECT <0.1 0.0 - 0.2 mg/dL 01/27/2025 12:52 PM T [facility] BILIRUBIN,INDIRE CT 01/27/2025 12:52 PM T [facility] Comment:Unable to calculate, Direct Bili <0.1 ALK PHOSPHATASE 70 40 - 129 IU/L 01/27/2025 12:52 PM T [facility] ALT (SGPT) 18 10 - 50 IU/L 01/27/2025 12:52 PM T [facility] AST (SGOT) 19 10 - 50 IU/L 01/27/2025 12:52 PM T [facility] Blood BLOOD SPECIMEN / Unknown Venipuncture / Unknown 01/27/2025 12:24 PM CDT 01/27/2025 12:27 PM CDT us Salvador RUBIN CHEMISTRY Fin al Result [facility] [address] [place] [phone] * (ABNORMAL) BASIC METABOLIC PANEL (01/27/2025 12:24 PM CDT) SODIUM 138 136 - 145 mmol/L 01/27/2025 12:52 PM [facility] POTASSIUM 4.3 3.5 - 5.1 mmol/L 01/27/2025 12:52 PM [facility] CHLORIDE 102 98 - 107 mmol/L 01/27/2025 12:52 PM [facility] CO2,TOTAL 23 22 - 29 mmol/L 01/27/2025 12:52 PM [facility] ANION GAP 13 5 - 18 01/27/2025 12:52 PM [facility] GLUCOSE 129(H) 70 - 99 mg/dL 01/27/2025 12:52 PM [facility] CALCIUM 9.4 8.8 - 10.4 mg/dL 01/27/2025 12:52 PM [facility] Comment: Reference ranges for this test were updated on 04/08/2024 to reflect our healthy population more accurately. Reference range changes are not retroactively applied to results, but previous results using the same methodology can be interpreted in the context of the new reference range. BUN 23(H) 6 - 20 mg/dL 01/27/2025 12:52 PM [facility] CREATININE 1.07 0.70 - 1.20 mg/dL 01/27/2025 12:52 PM [facility] BUN/CREAT RATIO 21(H) 10 - 20 12:52 PM [facility] eGFR 89(L) >90 mL/min/1.7 3m2 01/27/2025 12:52 PM [facility] Comment:As of 2021, eG FR [...] us Salvador RUBIN CHEMISTRY Fin al Result [facility] [address] [place] [phone] * UA W/ SEDIMENT EXAM REFLEXED PER CRITERIA (01/27/2025 12:12 PM CDT) COLOR Yellow Yellow Color 01/27/2025 12:19 PM T [facility] CLARITY Clear Clear Clarity 01/27/2025 12:19 PM [facility] SPECIFIC GRAVITY,URINE 1.020 1.010, 1.015, 1.020, 1.025 01/27/2025 12:19 PM [facility] PH,URINE 6.0 6.0, 7.0, 8.0, 5.5, 6.5, 7.5, 8.5 01/27/2025 12:19 PM [facility] UROBILINOGEN,Q UALITATIVE Normal Normal EU/dl 01/27/2025 12:19 PM [facility] PROTEIN, URINE Negative Negative mg/dL 01/27/2025 12:19 PM [facility] GLUCOSE, URINE Negative Negative mg/dL 01/27/2025 12:19 PM [facility] KETONES,URINE Negative Negative mg/dL 01/27/2025 12:19 PM [facility] BILIRUBIN,URIN E Negative Negative 01/27/2025 12:19 PM [facility] OCCULT BLOOD,URINE Negative Negative 01/27/2025 12:19 PM [facility] NITRITE Negative Negative 01/27/2025 12:19 PM [facility] LEUKOCYTE ESTERASE Negative Negative 01/27/2025 12:19 PM [facility] Urine URINE SPECIMEN / Unknown Non-Blood / Unknown 01/27/2025 12:12 PM CDT 01/27/2025 12:16 PM CDT us Salvador Cochran PA URINE Fin al Result [facility] [address] [phone] * (ABNORMAL) LC LIPID PANEL AND CHOL/HDL RATIO (09/28/2022 8:27 AM CDT) [facility] Cholesterol, Total 182 100 - 199 mg/dL 09/30/2022 10:09 AM CDT [facility] Triglycerides 69 0 - 149 mg/dL 09/30/2022 10:[address] [facility] ([facility]) HDL Cholesterol 56 >39 mg/dL 10:[address] [facility] ([facility]) VLDL Cholesterol Markel 13 5 - 40 mg/dL 09/30/2022 10:[address] [facility] ([facility]) LDL Chol Calc ([facility]) 113(H) 0 - 99 mg/dL 09/30/2022 10:[address] [facility] ([facility]) T. Chol/HDL Ratio 3.3 0.0 - 5.0 ratio 09/30/2022 10:[address] [facility] ([facility]) Comment: T. Chol/HDL Ratio Men Women 1/2 Avg.Risk 3.4 3.3 Avg.Risk 5.0 4.4 2X Avg.Risk 9.6 7.1 3X Avg.Risk 23.4 11.0 Blood BLOOD SPECIMEN / Unknown Venipuncture / Unknown 09/28/2022 8:27 AM CDT 09/28/2022 8:[address] [facility] ([facility]) - 09/30/2022 10:09 AM CDT Performed at: [address] [place] [address] [address] [place], [place] [id number] Hedge Fund Manager: Vin Hensley MD, Phone: [phone] Lamont Mccoy MD SEND OUTS Final R esult Performing Organization Address City/[facility]/ZIP Co de Phone Number [facility] ([facility]) [address] [place] [address], * LC HCV ANTIBODY RFX TO QUANT PCR (09/28/2022 8:27 AM CDT) HCV Ab Non Reactive Non Reactive 09/30/2022 2:[address] [facility] ([facility]) Blood BLOOD SPECIMEN / Unknown Venipuncture / Unknown 09/28/2022 8:27 AM CDT 09/28/2022 8:[address] [facility] ([facility]) - 09/30/2022 2:08 PM CDT Performed at: [facility] [address] [place], [place] [id number] Hedge Fund Manager: Vin Hensley MD, Phone: [phone] Lamont Mccoy MD LABORATORY Final R esult Performing Organization Address City/[facility]/ZIP Co de Phone Number [facility] ([facility]) [address] [place] [address], * HIV-1/O/2, 4TH GENERATION (09/28/2022 8:27 AM CDT) Pathologist [facility] HIV Scr 4th Gen Non Reactive Non Reactive 09/30/2022 12:[address] [facility] ([facility]) Comment: HIV Negative HIV-1/HIV-2 antibodies and HIV-1 p24 antigen were NOT detected. There is no laboratory evidence of HIV infection. Blood BLOOD SPECIMEN / Unknown Venipuncture / Unknown 09/28/2022 8:27 AM CDT 09/28/2022 8:[address] [facility] ([facility]) - 09/30/2022 12:07 PM CDT Performed at: [address] [place], [place] [address] [address] [id number] Hedge Fund Manager: Vin Hensley MD, Phone: [phone] Lamont Mccoy MD LABORATORY Final R esult [facility] ([facility]) [facility] [place] [address], from Last 3 Months or Most Recently [...] 10:53 PM 06/13/2011 3:00 PM Care Teams In Flight Refueling Manager Relationship Specialty Start Date End Date Pcp, No . PCP - General 06/15/13
--- OUTSIDE RECORDS SUMMARY | 2025-02-11 01:49 | XMS_ITS | Encounter Summary ---
Author Organization [facility] Address [address] [place] [address] Care Team Providers Care Silverware Cleaner Name Role Phone Meng Conner MD Primary [...] on filedocumented in this encounter Care Teams Silverware Cleaner Relationship Specialty Start Date End Date Meng Conner MD [address] [place] [address] PCP - General 02/03/16 documented as of this encounter
[2025-02-11] MEDS: KETOROLAC 10 MG TABLET PO (03:24)
== END 2025-02-11 06:11 | disposition home or self-care (01) ==
PROVIDERS: Family Medicine; Emergency Provider Family Medicine
DX: I46.9 Cardiac arrest, cause unspecified (principal); T40.411A Poisoning by fentanyl or fentanyl analogs, accidental (unintentional), initial encounter
CPT/HCPCS: 36415; 71045; 80048; 80143; 80179; 80306; 82077; 82550; 83605; 84484; 85025; 94761; 99284; 99291; A9270; J2405; J7030

== ENCOUNTER 2025-03-30 00:10 | Emergency (ER) | payer MEDICARE, SELFPAY ==
--- OUTSIDE RECORDS SUMMARY | 2025-02-23 07:46 | XMS_ITS | Encounter Summary ---
Author Organization [facility] Address [address] [place] [address] Care Team Providers Care Corporate Quality Engineer Name Role Phone Stefanie Donis APRN C.N.P. Primary Care Provi amie Reason for Visit * Reason Comments Chest Pain From bar jaramillo luz g chest Encounter Details Date Type Department Care Team (Late st Contact Info) Description 02/23/2025 7:46 AM CDT - 02/23/2025 10:00 AM CDT Emergency [facility] Emergency Department [address] [place] [phone] Enrique Griffith M.D. [address] [place] [phone] Contusion Front Chest Wall Initial Right (Primary [...] needed for daily living? 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 * Chest Contusion Adult (Chinese) documented in this encounter Medications at Time [...] off as he was benching without a axminster rug setter or railings. Pain right now is localized [...] off as he was benching without a axminster rug setter or railings. Pain right now is localized [...] Prothrombin Time (PT) (02/23/2025 8:13 AM CDT) [facility] Prothrombin Time, P 13.0(H) 9.4 - 12.5 sec 02/23/2025 8:25 AM CDT [facility] 1.2 0.9 - 1.1 02/23/2025 8:25 AM CDT [facility] Comment: ----ADDITIONAL INFORMATION---- Standard intensity warfarin therapeutic range: 2.0 to 3.0 High intensity warfarin therapeutic range: 2.5 to 3.5 Blood (Blood, Venous) 02/23/2025 8:13 AM CDT 02/23/2025 8:18 AM CDT Enrique Griffith M.D. LAB BLOOD ADD-ON Final Result Performing Organization Address City/[facility]/ZIP Co de Phone Number [facility] [address] [place] [address] * Troponin T, Baseline with 2 Hour/6 Hour Reflex Biomarker Panel (02/23/2025 8:13 AM CDT) [facility] Troponin T, Baseline, 5th gen 7 <=15 ng/L 02/23/2025 8:35 AM CDT [facility] Blood (Blood, Venous) 02/23/2025 8:13 AM CDT 02/23/2025 8:18 AM CDT Enrique Griffith M.D. LAB BLOOD TROPONIN Final Resul t Performing Organization Address City/[facility]/ZIP Co de Phone Number [facility] [address] [place] [address] * (ABNORMAL) CBC with Differential, Blood (02/23/2025 8:13 AM CDT) [facility] Hemoglobin 13.4 13.2 - 16.6 g/dL 02/23/2025 [...] Griffith M.D. LAB BLOOD ADD-ON Final Result [facility] [address] [place] [address], [facility] [address] [place], [place] [id number] [place] [address] [address] [place] [address] * Basic Metabolic Panel (02/23/2025 8:13 AM [...] Griffith M.D. LAB BLOOD ADD-ON Final Result [facility] [address] [place] [address], [facility] [address] [place] [address] * ECG 12 Lead (02/23/2025 7:51 AM CDT) Ventricular Rate ECG/Min 80 BPM MUSE AR Interval 140 ms MUSE QRSD Interval 86 ms MUSE QT Interval 338 ms MUSE QTC Interval 389 ms MUSE P [place] 28 degrees MUSE R [place] -2 degrees MUSE T Wave [place] 35 degrees MUSE 02/23/2025 7:51 AM CDT [...] as of this encounter Care Teams Corporate Quality Engineer Relationship Specialty Start Date End Date Stefanie Donis APRN, C.N.P. [address] [place] [phone] PCP - General Family Medicine 08/20/24 documented as of this encounter
--- OUTSIDE RECORDS SUMMARY | 2025-03-30 00:12 | XMS_ITS | Encounter Summary ---
Author Organization [facility] Address [address] [place] [address]. 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 [facility] is posting 0 beds. [facility] is posting 7 beds. [phone]: Per RN @ 12:19PM, they are already reviewing otherreferrals. She suggests calling back after 5PM [facility] is posting 0 beds. Negative covid required. [facility] is posting 0 beds. Neg covid. No high school/Kemi-psych. [phone]. Per Brittany @ 12:20PM, they are full today but Intake can call back tomorrow [facility] is posting [phone] [facility] is posting 0 beds. [phone]. [facility] is posting 6 beds. (Ages 18-35) Negative covid, no aggression, physical or sexual assault, violence hx or drug abuse, or psychosis. [phone]; Per Nav @ 3:15PM, no YA beds [facility] is posting 0 beds. [facility] is posting 0 beds [phone]. Per Yoselin @ 12:22PM, [facility] is at full capacity until tomorrow after 8AM NICAL PHOTOGRAPHER documented in this encounter Plan of Treatment Not on file documented as of this encounter Visit Diagnoses Not on filedocumented in this encounter Care Teams Publications Designer Relationship Specialty Start Date End Date Clinic - [address] [address] PCP - General Internal Medicine 10/15/23 documented as of this encounter
--- OUTSIDE RECORDS SUMMARY | 2025-03-30 00:12 | XMS_ITS | Encounter Summary ---
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
--- OUTSIDE RECORDS SUMMARY | 2025-03-30 00:12 | XMS_ITS | Encounter Summary ---
Author Organization [facility] Address [address] [place] [address] Care Team Providers Care Redrawer Name Role Phone Avani Flowers Md Primary Care Provider Gene Mcgregor MD Primary Care Provider [phone] No Ref-Primary, Physician Primary Care Provider Leah Dale APRN BENEFITS CONSULTANT Primary Care Provider Meng Conner MD Primary Care Provider [phone] [facility] Primary Care Provide r [facility] Primary Care Provider Encounter Details Date Type Department Care Team (Late st Contact Info) Description 11/17/2009 [place] [address] [place] [address] Meng Conner MD XXX RESIGNED XXX [address] [place] [address] [facility] SUMMARY Social History Tobacco Use Types Packs/Day Years Used Date Smoking Tobacco: Former Cigarettes 0.3 1 Smokeless Tobacco: Former Quit: 09/02/2013 Comments:e cig Alcohol Use Standard Drinks/Week Comments No 0 (1 standard drink = 0.6 oz pur e alcohol) Sex and Gender Information Value Date Recorded Sex Assigned at Not on file 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 Sex 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 Gender Identity Not on file Sexual Orientation Not on file documented as of this encounter Plan of Treatment Not on file documented as of this encounter Visit Diagnoses Diagnosis [facility] SUMMARY- Primary documented in this encounter Additional Health Concerns Infection Onset Date Last Indicated Resolved Time MRSA-Contact Isolation Comment:MRSA: 01-21-02 skin and sputum Infection erroneous 06/06/2021 11 :03 AM BUTTON INSPECTOR MRSA 06/23/2021 06/23/2021 10/16/2023 9:21 AM CDT COVID-19 05/10/2024 05/10/2024 05/21/2024 11:4 1 PM BUTTON INSPECTOR documented as of this encounter Care Teams Redrawer Relationship Specialty Start Date End Date Avani Flowers Md PCP - General 03/07/12 05/29/13 Gene Laws MD [address] [place], [place] [address] PCP - General Psychiatry 05/30/13 05/30/13 No Ref-Primary, Physician PCP - General 06/23/13 09/19/13 Leah Dale APRN BENEFITS CONSULTANT PCP - General Nurse Practitioner - Adult Health 09/20/13 01/10/15 Meng Conner MD PCP - General Internal Medicine 12/13/15 07/12/[address] [address] PCP - General 10/16/22 10/14/[address] [id number] PCP - General Internal Medicine 10/15/23 documented as of this encounter
--- OUTSIDE RECORDS SUMMARY | 2025-03-30 00:12 | XMS_ITS | Encounter Summary ---
Author Organization [facility] Address [address] [place] [address] Care Team Providers Care Manager Night Name Role Phone Stefanie Donis APRN C.N.P. Primary Care Provi amie Reason for Visit * Reason Comments Med Refill Encounter Details Date Type Department Care Team (Late st Contact Info) Description 02/18/2025 Refill Department of Family Medicine, [facility], in [place], [place] [address] [address] Stanislav Leyva M.D. [address] [place] [address] Med Refill Social History Tobacco Use [...] for daily living? 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 The patient stated he is currently on the 0.5 mg dose. He is not having any side effects. He does not know his exact weight, but he stated that he knows he is losing weight. He is okay with increasing the dose if Stefanie recommends it. He would like this sent to the [facility] pharmacy. PLAN Disposition/Recommendation: notified provider and awaiting recommendations Information/Education: patient/caller able to teach back Caller agreeable to plan of care: yes The following references were used: Stefanie Donis APRN, C.N.PPaola documented in this encounter Plan of Treatment Not on file documented as of this encounter Visit Diagnoses Diagnosis Obesity Body Mass Index 30-39.9 Adult documented in this encounter Additional Health Concerns Assessment Noted Time PHQ-9 Depression Total Score: 13 025 5:34 PM CDT documented as of this encounter Care Teams Manager Night Relationship Specialty Start Date End Date Stefanie Donis APRN, C.N.P. [address] [address] PCP - General Family Medicine 08/20/24 documented as of this encounter
--- OUTSIDE RECORDS SUMMARY | 2025-03-30 00:12 | XMS_ITS | Encounter Summary ---
Author Organization [facility] Address [address] [place] [address] Care Team Providers Care Fertilizer Applicator Name Role Phone Stefanie Donis APRN, C.N.P. Primary Care Provi amie Reason for Visit * Reason Comments Med Refill Encounter Details Date Type Department Care Team (Late st Contact Info) Description 03/06/2025 Refill Department of Family Medicine, [facility], in [place], [place] [address] [address] Stefanie Donis APRN, C.N.P. [address] [place] [address] Med Refill Social History Tobacco [...] daily living? 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 [address] [place] [address] PCP - General Family Medicine 08/20/24 documented as of this encounter
--- OUTSIDE RECORDS SUMMARY | 2025-03-30 00:12 | XMS_ITS | Encounter Summary ---
Author Organization [facility] Address [address], [place] [address] Care Team Providers Care Go Go Dancer Name Role Phone Meng Conner MD Primary Care Provider Unavailab le Encounter Details Date Type Department Care Team (Late st Contact Info) Description 03/12/2025 Notes/Orders [facility] Orthopedic [facility] [address] [place], [place] [id number] Derrell Lei MD [address] [place] [address] Social History Tobacco Use Types Packs/Day Years Used Date Smoking Tobacco: Former Cigarettes Q uit: 01/2023 Smokeless Tobacco: Never Alcohol Use Standard Drinks/Week Comments No 0 (1 standard drink = 0.6 oz pur e alcohol) [facility] Utilities Answer Date Recorded In the past 12 months has [facility] [employer], gas, oil, or water [employer] threatened to shut off services in your [...] place to sleep or slept in a prison (including now)? Yes 12/23/2023 Sex and Gender Information Value Date Recorded Sex Assigned at Not on file Legal Sex Male 7:12 AM CDT Gender Identity Not on file Sexual Orientation Not on file documented as of this encounter Plan of Treatment Not on file documented as of this encounter Visit Diagnoses Not on filedocumented in this encounter Care Teams Go Go Dancer Relationship Specialty Start Date End Date Meng Conner MD [address] [facility], [address] PCP - General 02/03/16 documented as of this encounter
--- OUTSIDE RECORDS SUMMARY | 2025-03-30 00:12 | XMS_ITS | Encounter Summary ---
Author Organization [facility] Address [address] [place] [address] Care Team Providers Care Special Certificate Dictator Name Role Phone Stefanie Donis APRN, C.N.P. Primary Care Provi amie Reason for Visit * Reason Comments Med Refill Encounter Details Date Type Department Care Team (Late st Contact Info) Description 03/06/2025 Refill Department of Family Medicine, , in [place], [place] [address] [address] Stefanie Donis APRN, C.N.P. [address] [place] [address] Med Refill Social History Tobacco [...] needed for daily living? 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 Stefanie wanted an update prior to getting a refill sent in for you. This was filled 02/24/2025, is this for the next month? Is you losing weight? Tolerating the medication? Do you want to stay on the 1 mg dose or would you like to increase this? The patient stated that he is tolerating the medication well. He says he is lowing weight. He wouldlike to increase the dose of Ozempic if able to. The refill is for the next month. PLAN Disposition/Recommendation: notified provider and awaiting recommendations Information/Education: patient/caller able to teach back Caller agreeable to plan of care: yes The following references were used: Stefanie Donis APRN, C.N.P. documented in this encounter Plan of Treatment Not on file documented as of this encounter Visit Diagnoses Diagnosis Obesity Body Mass Index 30-39.9 Adult documented in this encounter Additional Health Concerns Assessment Noted Time PHQ-9 Depression Total Score: 13 01/06/ 025 5:34 PM CDT documented as of this encounter Care Teams Special Certificate Dictator Relationship Specialty Start Date End Date Stefanie Donis APRN, C.N.P. [address] [phone] PCP - General Family Medicine 08/20/24 documented as of this encounter
--- OUTSIDE RECORDS SUMMARY | 2025-03-30 00:12 | XMS_ITS | Clinical Summary ---
Author Organization [facility] Address [address] [place] [address] Care Team Providers Care Advertising Manager Name Role Phone [facility] [...] in an abandoned building, in an overnight group home, or couch-surfing.) Yes 10/20/2024 Are you worried [...] on file Legal Sex Male 3:10 AM RESIN FILTERER Gender Identity Not on file Sexual Orientation [...] 99.8 kg (220 lb) 07/15/2024 7:00 AM RESIN FILTERER Height 172.7 cm (5' 8) 07/09/2024 8:01 PM RESIN FILTERER Body Mass Index 33.45 07/09/2024 8:01 PM RESIN FILTERER Plan of Treatment Health Maintenance Due Date [...] ANNUAL WELLNESS VISIT 09/29/2023 09/28/2022 COVID-19 VACCINE (1 - season) 2025 INFLUENZA VACCINE (#1) 2025 2, 03/14/2015, 08/22/2013, Additional history exists LIPID 07/10/2025 [...] CDT LIPID PROFILE Routine 07/10/2024 7:54 AM RESIN FILTERER HEPATITIS C ANTIBODY Routine 07/03/2013 4:59 PM RESIN FILTERER from Last 3 Months or Most Recently [...] - 99 mg/dL 10/20/2024 3:12 AM CDT [facility] Alkaline Phosphatase 74 40 - 150 U/L 10/20/2024 3:12 AM CDT [facility] AST 24 0 - 45 U/L 10/20/2024 3:12 AM CDT [facility] ALT 18 0 - 70 U/L 10/20/2024 3:12 AM CDT [facility] Protein Total 7.5 6.4 - 8.3 g/dL 10/20/2024 3:12 AM CDT [facility] Albumin 4.1 3.5 - 5.2 g/dL 10/20/2024 3:12 AM CDT [facility] Bilirubin Total <0.2 <=1.2 mg/dL 10/20/2024 3:12 AM CDT [facility] Blood STRUCTURE OF RIGHT UPPER LIMB / Unknown Venipuncture / Unknown 10/20/2024 2:50 AM CDT 10/20/2024 2:53 AM CDT Kailey Jarquin MD LAB - BLOOD ORDERABLES F inal Result [facility] [address] Room [address] [place] [id number] * (ABNORMAL) Lipid panel (07/10/2024 7:54 AM RESIN FILTERER) Cholesterol 194 <200 mg/dL 07/10/2024 9:52 AM RESIN FILTERER [facility] Triglycerides 598(H) <150 mg/dL 07/10/2024 9:52 AM RESIN FILTERER [facility] Direct Measure HDL 39(L) >=40 mg/dL 07/10/2024 9:52 AM RESIN FILTERER [facility] LDL Cholesterol Calculated 07/10/2024 9:52 AM RESIN FILTERER [facility] Comment:Cannot estimate LDL when triglyceride exceeds 400 mg/dL Non HDL Cholesterol 155(H) <130 mg/dL 07/10/2024 9:52 AM RESIN FILTERER [facility] Blood STRUCTURE OF RIGHT UPPER LIMB / Unknown Venipuncture / Unknown 07/10/2024 7:54 AM RESIN FILTERER 07/10/2024 8:52 AM RESIN FILTERER Narrative [facility] - 07/10/2024 9:52 AM RESIN FILTERER Cholesterol Desirable: < 200 mg/dL Borderline High: [...] [facility] [address] [place] [address], [address] * Hepatitis C antibody (07/03/2013 4:59 PM RESIN FILTERER) Hepatitis C Antibody Negative [facility] Blood specimen (specimen) 07/03/2013 4:59 PM RESIN FILTERER 07/03/2013 5:00 PM RESIN FILTERER us Cinthia Arias PA-C LAB - BLOOD ORDERAB LES Final Result [facility] [address] from Last 3 Months or Most Recently Relevant to Health Maintenance Insurance MEDICARE MEDICARE MEDICARE Advance Directives For more information, please contact: [phone] * Full Code (Latest Code Status on [...] 12:59 PM 11/07/2013 4:01 PM Care Teams Advertising Manager Relationship Specialty Start Date End Date [employer] - [address] [address] PCP - General Internal Medicine 10/15/23
--- OUTSIDE RECORDS SUMMARY | 2025-03-30 00:13 | XMS_ITS | Clinical Summary ---
Author Organization [facility] Address [address] [place] [address] Care Team Providers Care Natural Fabricator Name Role Phone Pcp, No Primary Care [...] CDT - 01/27/2025 1:05 PM CDT Emergency [facility] [address] [place] [address] Salvador Cochran PA Epigastric pain (Primary Dx); [...] on file Legal Sex Male 6:25 AM DISPLAY MECHANIC Gender Identity Not on file Sexual Orientation [...] - 11.0 thou/cu mm 01/27/2025 12:[address] [facility] RED BLOOD COUNT 4.84 4.30 - 5.90 mil/cu mm 01/27/2025 12:[address] [facility] HEMOGLOBIN 14.0 13.5 - 17.5 g/dL 01/27/2025 12:[address] [facility] HEMATOCRIT 43.4 37.0 - 53.0 % 01/27/2025 12:[address] [facility] MCV 90 80 - 100 fL 01/27/2025 12:[address] [facility] MCH 28.9 26.0 - 34.0 pg 01/27/2025 12:[address] [facility] MCHC 32.3 32.0 - 36.0 g/dL 01/27/2025 12:[address] [facility] RDW 13.7 11.5 - 15.5 % 01/27/2025 12:[address] [facility] PLATELET COUNT 278 140 - 440 thou/cu mm 01/27/2025 12:[address] [facility] MPV 9.4 6.5 - 11.0 fL 01/27/2025 12:[address] [facility] % NEUT 77.1 % 01/27/2025 12:[address] [facility] % LYMPH 13.4 % 01/27/2025 12:[address] [facility] % MONO 8.0 % 01/27/2025 12:[address] [facility] % EOS 0.9 % 01/27/2025 12:[address] [facility] % BASO 0.6 % 01/27/2025 12:[address] [facility] ABSOLUTE NEUTROPHILS 6.7 1.7 - 7.0 thou/cu mm 01/27/2025 12:[address] [facility] ABSOLUTE LYMPHOCYTES 1.2 0.9 - 2.9 thou/cu mm 01/27/2025 12:[address] [facility] ABSOLUTE MONOCYTES 0.7 <0.9 thou/cu mm 01/27/2025 12:[address] [facility] ABSOLUTE EOSINOPHILS 0.1 <0.5 thou/cu mm 01/27/2025 12:[address] [facility] ABSOLUTE BASOPHILS 0.1 <0.3 thou/cu mm 01/27/2025 12:[address] [facility] Blood BLOOD SPECIMEN / Unknown Venipuncture / Unknown 01/27/2025 12:24 PM CDT 01/27/2025 12:27 PM CDT Salvador RUBIN HEMATOLOGY Fin al Result Performing Organization Address [facility] Co de Phone Number [facility] [address] [phone] * ETHANOL SERUM OR PLASMA (01/27/2025 12:24 PM CDT) ETHANOL <0.010 <0.010 g/dL 01/27/2025 12:[address] [facility] Blood BLOOD SPECIMEN / Unknown Venipuncture / Unknown 01/27/2025 12:24 PM CDT 01/27/2025 12:27 PM CDT Salvador RUBIN CHEMISTRY Fin al Result Performing Organization Address [facility] Phone Number [facility] [address] [address] * MAGNESIUM (01/27/2025 12:24 PM CDT) MAGNESIUM 2.0 1.6 - 2.6 mg/dL 01/27/2025 12:[address] [facility] Blood BLOOD SPECIMEN / Unknown Venipuncture / Unknown 01/27/2025 12:24 PM CDT 01/27/2025 12:27 PM CDT Salvador RUBIN CHEMISTRY Fin al Result Performing Organization Address [facility] de Phone Number [facility] [address] [phone] * LIPASE (01/27/2025 12:24 PM CDT) LIPASE 32.6 13.0 - 60.0 IU/L 01/27/2025 12:[address] [facility] Blood BLOOD SPECIMEN / Unknown Venipuncture / Unknown 01/27/2025 12:24 PM CDT 01/27/2025 12:27 PM CDT us Salvador RUBIN CHEMISTRY Fin al Result Performing Organization Address City/State/[facility] Co de Phone Number [facility] [address] [phone] * HEPATIC FUNCTION PANEL (01/27/2025 12:24 PM CDT) ALBUMIN 4.0 4.0 - 4.9 g/dL 01/27/2025 12:[address] [facility] PROTEIN,TOTAL 7.1 6.0 - 8.0 g/dL 01/27/2025 12:[address] [facility] BILIRUBIN,TOTAL <0.2 0.0 - 1.2 mg/dL 01/27/2025 12:[address] [facility] BILIRUBIN,DIRECT <0.1 0.0 - 0.2 mg/dL 01/27/2025 12:[address] [facility] BILIRUBIN,INDIRE CT 01/27/2025 12:[address] [facility] Comment:Unable to calculate, Direct Bili <0.1 ALK PHOSPHATASE 70 40 - 129 IU/L 01/27/2025 12:[address] [facility] ALT (SGPT) 18 10 - 50 IU/L 01/27/2025 12:[address] [facility] AST (SGOT) 19 10 - 50 IU/L 01/27/2025 12:[address] [facility] Blood BLOOD SPECIMEN / Unknown Venipuncture / Unknown 01/27/2025 12:24 PM CDT 01/27/2025 12:27 PM CDT us Salvador RUBIN CHEMISTRY Fin al Result [facility] [address] [place] [phone] * (ABNORMAL) BASIC METABOLIC PANEL (01/27/2025 12:24 PM CDT) SODIUM 138 136 - 145 mmol/L 01/27/2025 12:[address] [facility] POTASSIUM 4.3 3.5 - 5.1 mmol/L 01/27/2025 12:[address] [facility] CHLORIDE 102 98 - 107 mmol/L 01/27/2025 12:[address] [facility] CO2,TOTAL 23 22 - 29 mmol/L 01/27/2025 12:[address] [facility] ANION GAP 13 5 - 18 01/27/2025 12:[address] [facility] GLUCOSE 129(H) 70 - 99 mg/dL 01/27/2025 12:[address] [facility] CALCIUM 9.4 8.8 - 10.4 mg/dL 01/27/2025 12:[address] [facility] Comment: Reference ranges for this test were updated on 04/08/2024 to reflect our healthy population more accurately. Reference range changes are not retroactively applied to results, but previous results using the same methodology can be interpreted in the context of the new reference range. BUN 23(H) 6 - 20 mg/dL 01/27/2025 12:[address] [facility] CREATININE 1.07 0.70 - 1.20 mg/dL 01/27/2025 12:[address] [facility] BUN/CREAT RATIO 21(H) 10 - 20 12:[address] [facility] eGFR 89(L) >90 mL/min/1.7 3m2 01/27/2025 12:[address] [facility] Comment:As of 2021, eG FR is calculated [...] us Salvador RUBIN CHEMISTRY Fin al Result [facility] [address] [place] [phone] * UA W/ SEDIMENT EXAM REFLEXED PER CRITERIA (01/27/2025 12:12 PM CDT) COLOR Yellow Yellow Color 01/27/2025 12:[address] [facility] CLARITY Clear Clear Clarity 01/27/2025 12:[address] [facility] SPECIFIC GRAVITY,URINE 1.020 1.010, 1.015, 1.020, 1.025 01/27/2025 12:[address] [facility] PH,URINE 6.0 6.0, 7.0, 8.0, 5.5, 6.5, 7.5, 8.5 01/27/2025 12:[address] [facility] UROBILINOGEN,Q UALITATIVE Normal Normal EU/dl 01/27/2025 12:[address] [facility] PROTEIN, URINE Negative Negative mg/dL 01/27/2025 12:[address] [facility] GLUCOSE, URINE Negative Negative mg/dL 01/27/2025 12:[address] [facility] KETONES,URINE Negative Negative mg/dL 01/27/2025 12:[address] [facility] BILIRUBIN,URIN E Negative Negative 01/27/2025 12:[address] [facility] OCCULT BLOOD,URINE Negative Negative 01/27/2025 12:[address] [facility] NITRITE Negative Negative 01/27/2025 12:[address] [facility] LEUKOCYTE ESTERASE Negative Negative 01/27/2025 12:[address] [facility] Urine URINE SPECIMEN / Unknown Non-Blood / Unknown 01/27/2025 12:12 PM CDT 01/27/2025 12:16 PM CDT us Salvador Cochran PA URINE Fin al Result [facility] [address] [phone] * (ABNORMAL) LC LIPID PANEL AND CHOL/HDL RATIO (09/28/2022 8:27 AM CDT) [facility] Cholesterol, Total 182 100 - 199 mg/dL 09/30/2022 10:09 AM CDT [facility] Triglycerides 69 0 - 149 mg/dL 09/30/2022 10:09 AM CDT [facility] ([facility]) HDL Cholesterol 56 >39 mg/dL 10:09 AM T [facility] ([facility]) VLDL Cholesterol Markel 13 5 - 40 mg/dL 09/30/2022 10:09 AM CDT [facility] ([facility]) LDL Chol Calc ([facility]) 113(H) 0 - 99 mg/dL 09/30/2022 10:09 AM T [facility] ([facility]) T. Chol/HDL Ratio 3.3 0.0 - 5.0 ratio 09/30/2022 10:09 AM T [facility] ([facility]) Comment: T. Chol/HDL Ratio Men Women 1/2 Avg.Risk 3.4 3.3 Avg.Risk 5.0 4.4 2X Avg.Risk 9.6 7.1 3X Avg.Risk 23.4 11.0 Blood BLOOD SPECIMEN / Unknown Venipuncture / Unknown 09/28/2022 8:27 AM CDT 09/28/2022 8:29 AM CDT Narrative [facility] ([facility]) - 09/30/2022 10:09 AM CDT Performed at: [address] [place] [address] [address] [place], [place] [id number] [employer] Tester: Vin Hensley MD, Phone: [phone] Lamont Mccoy MD SEND OUTS Final R esult Performing Organization Address City/[facility]/ZIP Co de Phone Number [facility] ([facility]) [address] [place] [address], * LC HCV ANTIBODY RFX TO QUANT PCR (09/28/2022 8:27 AM CDT) HCV Ab Non Reactive Non Reactive 09/30/2022 2:08 PM CDT [facility] ([facility]) Blood BLOOD SPECIMEN / Unknown Venipuncture / Unknown 09/28/2022 8:27 AM CDT 09/28/2022 8:29 AM CDT Narrative [facility] ([facility]) - 09/30/2022 2:08 PM CDT Performed at: [facility] [place] [place], [place] [id number] [employer] Tester: Vin Hensley MD, Phone: [phone] Lamont Mccoy MD LABORATORY Final R esult Performing Organization Address City/[facility]/ZIP Co de Phone Number [facility] ([facility]) [address] [place] [address], * HIV-1/O/2, 4TH GENERATION (09/28/2022 8:27 AM CDT) Pathologist [facility] HIV Scr 4th Gen Non Reactive Non Reactive 09/30/2022 12:07 PM CDT [facility] ([facility]) Comment: HIV Negative HIV-1/HIV-2 antibodies and HIV-1 p24 antigen were NOT detected. There is no laboratory evidence of HIV infection. Blood BLOOD SPECIMEN / Unknown Venipuncture / Unknown 09/28/2022 8:27 AM CDT 09/28/2022 8:29 AM CDT Narrative [facility] ([facility]) - 09/30/2022 12:07 PM CDT Performed at: [address] [place], [place] [address] [id number] [employer] Tester: Vin Hensley MD, Phone: [phone] Lamont Mccoy MD LABORATORY Final R esult [facility] ([facility]) [facility] [place] [address], from Last 3 Months or Most Recently [...] 10:53 PM 06/13/2011 3:00 PM Care Teams Natural Fabricator Relationship Specialty Start Date End Date Pcp, No . PCP - General 06/15/13
--- OUTSIDE RECORDS SUMMARY | 2025-03-30 00:13 | XMS_ITS | Clinical Summary ---
Author Organization [facility] Address [address] [place] [address] Care Team Providers Care System Administration Advisor Name Role Phone Meng Conner MD Primary [...] for each transition of care or referral. Makstr Allergies Active Allergy Reactions Criticality Noted Date [...] (07/26/2022): Added automatically from request for surgery [id number] Chronic pain of right knee 05/24/2022 Overview (05/24/2022): Added automatically from request for surgery [id number] Effusion of right knee 05/24/2022 Overview (05/24/2022): Added automatically from request for surgery [id number] Painful orthopaedic hardware 05/24/2022 Overview (05/24/2022): Added automatically from request for surgery [id number] Multiple fractures of pelvis with stable disruption of pelvic [place] with routine healing 03/13/2015 Femur fracture, right [...] Encounters Date Type Department Care Team Description 03/12/2025 Notes/Orders [place] [address] [place] [address] Derrell Lei MD from Last 3 Months Immunizations Immunization Administration Dates Next Due 9vHPV (Gardasil 9) 06/08/2022 Flu Vac (3+ yrs) 04/11/2007 Fluzone Qiv Multidose Vial 0.25 (6-35 Mos) 04/29 Influenza IIV4 (Quadrivalent) 0.5mL (49910) 03/04,08/22/2013 PPSV23 (Pneumovax) 08/22/2013 Tdap 02/22/2015,02/13/2007 Social History Tobacco Use Types Packs/Day Years Used Date Smoking Tobacco: Former Cigarettes Q uit: 01/2023 Smokeless Tobacco: Never Alcohol Use Standard Drinks/Week Comments No 0 (1 standard drink = 0.6 oz pur e alcohol) [facility] Utilities Answer Date Recorded In the past 12 months has th e [employer], oil, or water [employer] threatened to shut off services in your [...] 12:29 AM 07/22/2013 2:01 PM Care Teams System Administration Advisor Relationship Specialty Start Date End Date Meng Conner MD [address] [place], [address] PCP - General 02/03/16
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
--- OUTSIDE RECORDS SUMMARY | 2025-03-30 00:14 | XMS_ITS | Encounter Summary ---
Author Organization [facility] Address [address] [place] [address] Care Team Providers Care Molded Goods Embossing Press Operator Name Role Phone Meng Conner MD [...] on file documented as of this encounter Mental Status * Question Answer Entry Date Author Mood/Behavior restless 12/29/2014 1:19 PM CDT Gutierrez Koo RN Level of Consciousness alert 12/28/2014 8:00 PM CDT Yeny Cummins RN documented in this encounter Plan of Treatment Not on file documented as of this encounter Visit Diagnoses Not on filedocumented in this encounter Care Teams Molded Goods Embossing Press Operator Relationship Specialty Start Date End Date Meng Conner MD [address] [place] [address] PCP - General 02/03/16 documented as of this encounter
[2025-03-30 00:16] VITALS: BP 140/83; PULSE 82; RESP 18; TEMP 36.8; O2SAT 99; BMI 30.4
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
[2025-03-30] MEDS: ONDANSETRON ODT 4 MG TAB PO (00:40)
[2025-03-30 01:20] VITALS: BP 135/84; PULSE 79; RESP 18; TEMP 36.8; O2SAT 99
[2025-03-30 01:21] VITALS: BP 135/84; PULSE 79; RESP 18; TEMP 36.8
== END 2025-03-30 01:21 | disposition home or self-care (01) ==
PROVIDERS: Emergency Provider Family Medicine
DX: F11.13 Opioid abuse with withdrawal (principal)
CPT/HCPCS: 93005; 99284; A9270

== ENCOUNTER 2025-03-31 03:24 | Emergency (ER) | payer MEDICARE, SELFPAY ==
--- OUTSIDE RECORDS SUMMARY | 2025-02-23 07:46 | XMS_ITS | Encounter Summary ---
Author Organization [facility] Address [address] [place] [address] Care Team Providers Care Electrolysis Needle Operator Name Role Phone Stefanie Donis APRN C.N.P. Primary Care Provi amie Reason for Visit * Reason Comments Chest Pain From bar jaramillo luz g chest Encounter Details Date Type Department Care Team (Late st Contact Info) Description 02/23/2025 7:46 AM CDT - 02/23/2025 10:00 AM CDT Emergency [facility] Emergency Department [address] [place] [phone] Enrique Griffith M.D. [address] [place] [phone] Contusion Front Chest Wall Initial Right (Primary Dx) Discharge Disposition: Home or Self Care Social [...] needed for daily living? 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 Gender Identity Not on file Sexual Orientation Not on file documented as of this encounter Last Filed Vital Signs Vital Sign Reading Time Taken Comments Blood Pressure 110/80 02/23/2025 9:45 AM CDT Pulse 65 02/23/2025 9:45 AM CDT Temperature 36.6 C (97.9 F) 02/23/2025 8:07 AM CDT Respiratory Rate 12 02/23/2025 9:45 AM CDT Oxygen Saturation 95% 02/23/2025 9:45 AM CDT Inhaled Oxygen Concentration - - Weight 110 kg (242 lb 15.2 oz) 02/23/2025 7:49 A M CDT Height 172.7 cm (5' 8) 02/23/2025 7:49 AM CDT Body Mass Index 36.94 02/23/2025 7:49 AM CDT documented in this encounter Discharge Instructions * Discharge Instructions* Nav Rodriguez - 02/23/2025 9:56 AM CDT Continue to use over the counter medications and ice/ heat for pain management; can consider ibuprofen and aspirin, diclofenac gel, and topical numbing cream such as lidocaine gel. * Attachments The following attachments cannot be sent through Care Everywhere. * Chest Contusion Adult (Lithuanian) documented in this encounter Medications at Time of Discharge atomoxetine (Strattera) 40 mg capsule Take 1 capsule (40 mg total) by mouth daily. 30 capsule 01/07/2025 9:28 AM CDT 01/07/2025 escitalopram (Lexapro) 10 mg tablet Take 1 tablet (10 mg total) by mouth daily. 30 tablet 02/02/2025 11:54 AM CDT 02/02/2025 OLANZapine (ZyPREXA) 15 mg tablet Take 1 tablet (15 mg total) by mouth 2 (two) times a day. 60 tablet 01/14/2025 9:08 AM CDT 01/10/2025 OXcarbazepine (TrileptaL) 600 mg tablet Take 1 tablet (600 mg total) by mouth 2 (two) times a day. 60 tablet 02/04/2025 9:50 AM CDT 02/02/2025 semaglutide (Ozempic) 0.25 mg or 0.5 mg (2 mg/3 mL) injectionIndicati ons:Obesity Body Mass Index 30-39.9 Adult Inject 0.25 mg under the skin every 7 (seven) days for 28 days, THEN inject 0.5 mg every 7 (seven) days. 3 mL 02/04/2025 9:50 AM CDT 01/24/2025 semaglutide (Ozempic) 1 mg/dose (4 mg/3 mL) injectionIndicati ons:Obesity Body Mass Index 30-39.9 Adult Inject 1 mg under the skin every 7 (seven) days. 3 mL 02/24/2025 6:10 PM CDT 02/24/2025 varenicline tartrate (Chantix) 1 mg tabletIndications :smoking cessation Take 1 tablet (1 mg total) by mouth 2 (two) times a day Indications: stop smoking. 60 tablet 01/23/2025 5:29 PM CDT 01/22/2025 varenicline tartrate (Chantix) 1 mg tablet Take 1 tablet (1 mg total) by mouth 2 (two) times a day for 60 days. Take with full glass of water. 60 tablet 01/23/2025 03/24/2025 hydrOXYzine (Atarax) 50 mg tablet Take 1 tablet (50 mg total) by mouth 4 (four) times a day as needed for anxiety. 60 tablet 02/04/2025 9:50 AM CDT 02/02/2025 03/06/2025 documented as of this encounter ED Notes * Enrique Griffith M.D. - 02/23/2025 10:00 AM CDT I saw the patient with the medical student. I was present for or re-performed the History of Present Illness. I personally performed a Physical Exam and Medical Decision Making. I reviewed medical student documentation and agree or amended. Assessment and Plan 39 year old male presenting with chest pain after dropping a barbell on himself last night; barbellwas on his chest for > 1 minute, and he struggled to lift it off as he was benching without a cement storage worker or railings. Pain right now is localized to his right anterior chest wall and is a 9/10 intensity. ECG demonstrated no changes, and labs were reassuring as well (no symptoms of rhabdomyolysis, BMP normal). Toradol was given with benefit; heat also helped with pain. CXR ruled out fracture or pulmonary contusion. Discharged home in stable condition, with recommendations for OTC management of pain.. Final Diagnoses: as of 02/23/25 1131 Contusion Front Chest Wall Initial Right Enrique Griffith M.D. 02/23/25 1131 * Nav Rodriguez - 02/23/2025 8:18 AM CDT SUBJECTIVE CHIEF COMPLAINT/REASON FOR VISIT Chest Pain (From bar jaramillo hitting chest) HISTORY OF PRESENT ILLNESS Mr. Florentin Mccarthylease) is a pleasant 39 year old male who presents with right sided chest pain after dropping a barbell at 265lb on himself last night while benching; states that his previous weight wasusually 215lb. The pain has been constant and worsening since last night, localized over his right pectoral region, and is severe enough to disrupt his sleep. Denies any other chest pain or shortnessof breath, though he has been having some pain with deep inspiration. Denies any prior trauma to the chest or rib fractures. Is not on any blood thinners. REVIEW OF SYSTEMS HENT: Negative for trouble swallowing. Respiratory: Negative for shortness of breath. Cardiovascular: Positive for chest pain. Gastrointestinal: Negative for abdominal pain. Skin: Negative for color change. Neurological: Positive for weakness. Negative for numbness and headaches. Right upper extremity weakness stated to be secondary to pain. OBJECTIVE Initial Vitals Temperature 02/23/25 0807 36.6 ??C Pulse Rate 02/23/25 0806 81 Heart Rate 02/23/25 0806 78 Resp Rate 02/23/25 0806 12 Blood Pressure 02/23/25 0806 109/85 SpO2 02/23/25 0806 96 % Pain Score 02/23/25 0803 9 PHYSICAL EXAMINATION Constitutional: Nursing note and vitals reviewed. No distress. HENT: Head: Normocephalic and atraumatic. No signs of injury. Eyes: EOM are normal. Cardiovascular: Normal rate and regular rhythm. Pulses are palpable. Capillary refill: takes less than 3 seconds Pulmonary/Chest: Effort normal and breath sounds normal. No respiratory distress. Skin: He is not diaphoretic. Tenderness to palpation of right pectoral, without any bruising. No paradoxical movement of the chest wall visualized with inspiration. ASSESSMENT/PLAN Assessment and Plan 39 year old male presenting with chest pain after dropping a barbell on himself last night; barbellwas on his chest for > 1 minute, and he struggled to lift it off as he was benching without a cement storage worker or railings. Pain right now is localized to his right anterior chest wall and is a 9/10 intensity. ECG demonstrated no changes, and labs were reassuring as well (no symptoms of rhabdomyolysis, BMP normal). Toradol was given with benefit; heat also helped with pain. CXR ruled out fracture or pulmonary contusion. Discharged home in stable condition, with recommendations for OTC management of pain. DIFFERENTIAL DIAGNOSES Low concern for cardiac or pulmonary etiology given ECG, CXR, and clear association of pain with mechanical trauma. Low concern for rhabdo. Low concern for GERD or other esophageal causes given lack of dysphagia. ED Course as of 02/23/25 1022 Mon Feb 23, 2025 0827 ECG 12 Lead Sinus rhythm, normal ecg 0828 DX Chest AP or PA and Lateral 2 Views Per my interpretation: no fracture of congestion to indicate pulmonary contusion 0918 Basic Metabolic Panel: Potassium, P 4.0 Sodium, P 139 Chloride, P 103 Bicarbonate, P 22 Anion Gap, P 14 BUN (Blood Urea Nitrogen), P 16 Creatinine 1.13 Estimated GFR (eGFR) 84 Calcium, Total, P 8.9 Glucose, P 102 0919 Troponin T, Baseline, 5th gen: 7 0938 Toradol brought pain down to a 7; heat is also helping Final Diagnoses: as of 02/23/25 1022 Contusion Front Chest Wall Initial Right Nav Rodriguez 02/23/25 1024 Cosigned by Enrique Griffith M.D. at 02/23/2025 11:32 AM CDT * Lary Marie RPaolaN. - 02/23/2025 8:15 AM CDT Patient reports he was lifting heavy yesterday and dropped a 245 lb barbell on his chest. Reportslimited movement in the right arm, and states it is hard to take a deep breath in. No cardiac history. Lary Marie R.N. 02/23/25 0817 documented in this encounter Plan of Treatment Not on file documented as of this encounter Procedures Procedure Name Priority Date/Time Associated Diagnosis Comments DX CHEST AP OR PA AND LATERAL 2 VIEWS RAD - Semiurgent (Fast; most ED patients; some inpatients) 02/23/2025 8:18 AM CDT TROPONIN T, BASELINE, 5TH GEN, P STAT 02/23/2025 8:13 AM CDT PROTHROMBIN TIME (PT), P STAT 02/23/2025 8:13 AM CDT CBC WITH DIFFERENTIAL, B STAT 02/23/2025 8:13 AM CDT BASIC METABOLIC PANEL, S/P STAT 02/23/2025 8:13 AM CDT ECG STAT 02/23/2025 7:51 AM CDT documented in this encounter Results * DX Chest AP or PA and Lateral 2 Views (02/23/2025 8:18 AM CDT) Anatomical Region Laterality Modality Chest, Thoracic RST LOS, Tho racic ARZ LOS, Thoracic FLA LOS N/A Digital Radiography Impressions 02/23/2025 8:39 AM CDT Since 08/21/2024, overall lower lung volumes accentuate the cardiac silhouette and pulmonary vasculature. Remainder not significantly changed. Numerous bilateral calcified granulomas. Calcified hilar and mediastinal lymph nodes. Chest otherwise negative. Narrative 02/23/2025 8:39 AM CDT EXAM: DX CHEST AP OR PA AND LATERAL 2 VIEWS Procedure Note Gene Ying M.D. - 02/23/2025 EXAM: DX CHEST AP OR PA AND LATERAL 2 VIEWS IMPRESSION: Since 08/21/2024, overall lower lung volumes accentuate the cardiacsilhouette and pulmonary vasculature. Remainder not significantly changed.Numerous bilateral calcified granulomas. Calcified hilar and mediastinallymph nodes. Chest otherwise negative. us Enrique Griffith M.D. IMG DIAGNOSTIC IMAGING PROCEDU RES Final Result * (ABNORMAL) Prothrombin Time (PT) (02/23/2025 8:13 AM CDT) [facility] Prothrombin Time, P 13.0(H) 9.4 - 12.5 sec 02/23/2025 8:25 AM CDT [facility] 1[facility]2 0.9 - 1.1 02/23/2025 8:25 AM CDT [facility] Comment: ----ADDITIONAL INFORMATION---- Standard intensity warfarin therapeutic range: 2.0 to 3.0 High intensity warfarin therapeutic range: 2.5 to 3.5 Blood (Blood, Venous) 02/23/2025 8:13 AM CDT 02/23/2025 8:18 AM CDT Enrique Griffith M.D. LAB BLOOD ADD-ON Final Result Performing Organization Address City/[facility]/ZIP Co de Phone Number [facility] [address] [place] [address] * Troponin T, Baseline with 2 Hour/6 Hour Reflex Biomarker Panel (02/23/2025 8:13 AM CDT) [facility] Troponin T, Baseline, 5th gen 7 <=15 ng/L 02/23/2025 8:35 AM CDT [facility] Blood (Blood, Venous) 02/23/2025 8:13 AM CDT 02/23/2025 8:18 AM CDT Enrique Griffith M.D. LAB BLOOD TROPONIN Final Resul t Performing Organization Address City/[facility]/ZIP Co de Phone Number [facility] [address] [place] [address] * (ABNORMAL) CBC with Differential, Blood (02/23/2025 8:13 AM CDT) [facility] Hemoglobin 13.4 13.2 - 16.6 g/dL 02/23/2025 8:21 AM CDT [facility] Hematocrit 40.5 38.3 - 48.6 % 02/23/2025 8:21 AM CDT [facility] Erythrocytes 4.74 4.35 - 5.65 x10(12)/L 02/23/2025 8:21 AM CDT [facility] MCV 85.4 78.2 - 97.9 fL 02/23/2025 8:21 AM CDT [facility] RBC Distrib Width 12.3 11.8 - 14.5 % 02/23/2025 8:21 AM CDT [facility] Platelet Count 354(H) 135 - 317 x10(9)/L 02/23/2025 8:21 AM CDT [facility] Leukocytes 9.0 3.4 - 9.6 x10(9)/L 02/23/2025 8:21 AM CDT [facility] Neutrophils 6.35 1.56 - 6.45 x10(9)/L 02/23/2025 8:21 AM CDT [facility] Lymphocytes 1.51 0.95 - 3.07 x10(9)/L 02/23/2025 8:21 AM CDT [facility] Monocytes 0.84(H) 0.26 - 0.81 x10(9)/L 02/23/2025 8:21 AM CDT [facility] Eosinophils 0.25 0.03 - 0.48 x10(9)/L 02/23/2025 8:21 AM CDT [facility] Basophils 0.04 0.01 - 0.08 x10(9)/L 02/23/2025 8:21 AM CDT [facility] Blood (Blood, Venous) 02/23/2025 8:13 AM CDT 02/23/2025 8:18 AM CDT us Enrique Griffith M.D. LAB BLOOD ADD-ON Final Result [facility] [address] [place] [address], [facility] [address] [place], [place] [id number] [place] [address] 200 [place] [address] * Basic Metabolic Panel (02/23/2025 8:13 AM CDT) Potassium, P 4.0 3.6 - 5.2 mmol/L 02/23/2025 8:48 AM CDT [facility] Sodium, P 139 135 - 145 mmol/L 02/23/2025 8:48 AM CDT [facility] Chloride, P 103 98 - 107 mmol/L 02/23/2025 8:48 AM CDT [facility] Bicarbonate, P 22 22 - 29 mmol/L 02/23/2025 8:48 AM CDT [facility] Anion Gap, P 14 7 - 15 02/23/2025 8:48 AM CDT [facility] BUN (Blood Urea Nitrogen), P 16 8 - 24 mg/dL 02/23/2025 8:48 AM CDT [facility] Creatinine 1.13 0.74 - 1.35 mg/dL 02/23/2025 8:48 AM CDT [facility] Estimated GFR (eGFR) 84 >=60 mL/min/BSA 02/23/2025 8:48 AM CDT [facility] Comment: Estimated GFR calculated using the 2020 CKD_EPI creatinine equation. Calcium, Total, P 8.9 8.6 - 10.0 mg/dL 02/23/2025 8:48 AM CDT [facility] Glucose, P 102 70 - 140 mg/dL 02/23/2025 8:48 AM CDT [facility] Blood (Blood, Venous) 02/23/2025 8:13 AM CDT 02/23/2025 8:18 AM CDT us Enrique Griffith M.D. LAB BLOOD ADD-ON Final Result [facility] [address] [place] [address], [facility] [address] [place] [address] * ECG 12 Lead (02/23/2025 7:51 AM CDT) Ventricular Rate ECG/Min 80 BPM MUSE [place] Interval 140 ms MUSE QRSD Interval 86 ms MUSE QT Interval 338 ms MUSE QTC Interval 389 ms MUSE P [place] 28 degrees MUSE R [place] -2 degrees MUSE T Wave [place] 35 degrees MUSE 02/23/2025 7:51 AM CDT 02/23/2025 7:56 AM CDT Impressions MUSE - 02/23/2025 7:56 AM CDT Normal sinus rhythm Normal ECG When compared with ECG of 25-Dec-2024 07:17, No significant change was found Reviewed by SAKSHI Thomas Narrative Procedure Note Twin Claudio Jr., M.D. - 02/23/2025 IMPRESSION: Normal sinus rhythm Normal ECG When compared with ECG of 25-Dec-2024 07:17, No significant change was found Reviewed by SAKSHI Thomas us Gene Clifton M.D., M.S. ECG ORDERABLES Final Result MUSE NA documented in this encounter Visit Diagnoses Diagnosis Contusion Front Chest Wall Initial Right- Primary documented in this encounter Administered Medications Inactive Administered Medications - up to 3 most recent administrations Medication Order MAR Action Action Date Dose Rate Site ketorolac injection 15 mg (ToradoL) 15 mg, intramuscular, Once, On Sun02/23/25 at 0818, For 1 dose, Adult IV push rate: Over 15 seconds. Peds IV push rate: Over 1 minute. Doses > 15 mg IV/IM are discouraged due to lack of additional analgesic benefit. Given 02/23/2025 8:22 AM CDT 15 mg Left Deltoid sodium chloride 0.9 % injection 10 mL 10 mL, intravenous, As needed, line care, Starting on Sun02/23/25 at 0756, Peripheral Intravenous Catheter and Rapid Infusion Catheter, prior to blood sampling, post blood transfusion or post blood sampling sodium chloride 0.9 % injection 3 mL 3 mL, intravenous, As needed, line care, Starting on Sun02/23/25 at 0756, Prior to and following infusion and between multiple consecutive infusions: sodium chloride 0.9 % injection sodium chloride 0.9 % injection 3 mL 3 mL, intravenous, Every 12 hours scheduled, First dose on Sun02/23/25 at 0900, Peripheral Intravenous Catheter and Rapid Infusion Catheter, when no infusion to maintain patency documented in this encounter Active and Recently Administered Medications Times are shown in CDT. Scheduled Medication Order 02/21/2025 02/22/2025 02/23/2025 aspirin chewable tablet 324 mg 324 mg, oral, Once, On Sun02/23/25 at 0757, For 1 dose, For chest pain 0848 (Not Given - Pr ovider: Lary Marie R.N. - Reason: Other - Comment: non cardiogenic) ketorolac injection 15 mg (ToradoL) (COMPLETED) 15 mg, intramuscular, Once, On Sun02/23/25 at 0818, For 1 dose, Adult IV push rate: Over 15 seconds. Peds IV push rate: Over 1 minute. Doses > 15 mg IV/IM are discouraged due to lack of additional analgesic benefit. 0822 (Given - Provid er: Lary Marie, Hayden.) sodium chloride 0.9 % injection 3 mL 3 mL, intravenous, Every 12 hours scheduled, First dose on Sun02/23/25 at 0900, Peripheral Intravenous Catheter and Rapid Infusion Catheter, when no infusion to maintain patency 0900 (Due) PRN Medication Order 02/21/2025 02/22/2025 02/23/2025 sodium chloride 0.9 % injection 10 mL 10 mL, intravenous, As needed, line care, Starting on Sun02/23/25 at 0756, Peripheral Intravenous Catheter and Rapid Infusion Catheter, prior to blood sampling, post blood transfusion or post blood sampling sodium chloride 0.9 % injection 3 mL 3 mL, intravenous, As needed, line care, Starting on Sun02/23/25 at 0756, Prior to and following infusion and between multiple consecutive infusions: sodium chloride 0.9 % injection documented in this encounter Additional Health Concerns Assessment Noted Time PHQ-9 Depression Total Score: 13 025 5:34 PM CDT documented as of this encounter Care Teams Electrolysis Needle Operator Relationship Specialty Start Date End Date Stefanie Donis APRN, C.N.P. [address] [place] [phone] PCP - General Family Medicine 08/20/24 documented as of this encounter
--- OUTSIDE RECORDS SUMMARY | 2025-03-31 03:27 | XMS_ITS | Encounter Summary ---
Author Organization [place] Address [address] [place] [address] Care Team Providers Care Director Education Name Role Phone Avani Flowers Md Primary Care Provider Gene Mcgregor MD Primary Care Provider [phone] No Ref-Primary, Physician Primary Care Provider Leah Dael APRN TAPE CUTTING MACHINE OPERATOR Primary Care Provider Meng Conner MD Primary Care Provider [phone] [facility] Primary Care Provide r [facility] Primary Care Provider Encounter Details Date Type Department Care Team (Late st Contact Info) Description 11/17/2009 [place] [address] [place] [address] Meng Conner MD XXX RESIGNED XXX [address] [place] [address] 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 Gender Identity Not on file Sexual Orientation Not on file documented as of this encounter Plan of Treatment Not on file documented as of this encounter Visit Diagnoses Diagnosis [facility] SUMMARY- Primary documented in this encounter Additional Health Concerns Infection Onset Date Last Indicated Resolved Time MRSA-Contact Isolation Comment:MRSA: 01-21-02 skin and sputum Infection erroneous 06/06/2021 11 :03 AM HYDRAULIC PLUMBER HELPER MRSA 06/23/2021 06/23/2021 10/16/2023 9:21 AM CDT COVID-19 05/10/2024 05/10/2024 05/21/2024 11:4 1 PM HYDRAULIC PLUMBER HELPER documented as of this encounter Care Teams Director Education Relationship Specialty Start Date End Date Avani Flowers Md PCP - General 03/07/12 05/29/13 Gene Laws MD [address] [facility] [address] [place], [place] [address] PCP - General Psychiatry 05/30/13 05/30/13 No Ref-Primary, Physician PCP - General 06/23/13 09/19/13 Leah Dale APRN TAPE CUTTING MACHINE OPERATOR PCP - General Nurse Practitioner - Adult Health 09/20/13 01/10/15 Meng Conner MD PCP - General Internal Medicine 12/13/15 07/12/[address] [address] PCP - General 10/16/22 10/14/[address] [id number] PCP - General Internal Medicine 10/15/23 documented as of this encounter
--- OUTSIDE RECORDS SUMMARY | 2025-03-31 03:28 | XMS_ITS | Clinical Summary ---
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 Gender Identity Not on file Sexual Orientation [...] 99.8 kg (220 lb) 07/15/2024 7:00 AM SUPERVISOR ENGINE REPAIR Height 172.7 cm (5' 8) 07/09/2024 8:01 PM SUPERVISOR ENGINE REPAIR Body Mass Index 33.45 07/09/2024 8:01 PM SUPERVISOR ENGINE REPAIR Plan of Treatment Health Maintenance Due Date [...] CDT LIPID PROFILE Routine 07/10/2024 7:54 AM SUPERVISOR ENGINE REPAIR HEPATITIS C ANTIBODY Routine 07/03/2013 4:59 PM SUPERVISOR ENGINE REPAIR from Last 3 Months or Most Recently [...] - 99 mg/dL 10/20/2024 3:12 AM CDT [facility] Alkaline Phosphatase 74 40 - 150 U/L 10/20/2024 3:12 AM CDT [facility] AST 24 0 - 45 U/L 10/20/2024 3:12 AM CDT [facility] ALT 18 0 - 70 U/L 10/20/2024 3:12 AM CDT [facility] Protein Total 7.5 6.4 - 8.3 g/dL 10/20/2024 3:12 AM CDT [facility] Albumin 4.1 3.5 - 5.2 g/dL 10/20/2024 3:12 AM CDT [facility] Bilirubin Total <0.2 <=1.2 mg/dL 10/20/2024 3:12 AM CDT [facility] Blood STRUCTURE OF RIGHT UPPER LIMB / Unknown Venipuncture / Unknown 10/20/2024 2:50 AM CDT 10/20/2024 2:53 AM CDT Kailey Jarquin MD LAB - BLOOD ORDERABLES F inal Result [facility] [address] Room [address] [place] [phone] * (ABNORMAL) Lipid panel (07/10/2024 7:54 AM SUPERVISOR ENGINE REPAIR) Cholesterol 194 <200 mg/dL 07/10/2024 9:52 AM SUPERVISOR ENGINE REPAIR [facility] Triglycerides 598(H) <150 mg/dL 07/10/2024 9:52 AM SUPERVISOR ENGINE REPAIR [facility] Direct Measure HDL 39(L) >=40 mg/dL 07/10/2024 9:52 AM SUPERVISOR ENGINE REPAIR [facility] LDL Cholesterol Calculated 07/10/2024 9:52 AM SUPERVISOR ENGINE REPAIR [facility] Comment:Cannot estimate LDL when triglyceride exceeds 400 mg/dL Non HDL Cholesterol 155(H) <130 mg/dL 07/10/2024 9:52 AM SUPERVISOR ENGINE REPAIR [facility] Blood STRUCTURE OF RIGHT UPPER LIMB / Unknown Venipuncture / Unknown 07/10/2024 7:54 AM SUPERVISOR ENGINE REPAIR 07/10/2024 8:52 AM SUPERVISOR ENGINE REPAIR Narrative [facility] - 07/10/2024 9:52 AM SUPERVISOR ENGINE REPAIR Cholesterol Desirable: < 200 mg/dL Borderline High: [...] BLOOD ORDERABLES F inal Result [facility] [address] [place] [address], [address] * Hepatitis C antibody (07/03/2013 4:59 PM SUPERVISOR ENGINE REPAIR) Hepatitis C Antibody Negative NEG [facility] Blood specimen (specimen) 07/03/2013 4:59 PM SUPERVISOR ENGINE REPAIR 07/03/2013 5:00 PM SUPERVISOR ENGINE REPAIR us Cinthia Arias PA-C LAB - BLOOD ORDERAB LES Final Result [facility] [address] [place] [address] from Last 3 Months or Most Recently Relevant to Health Maintenance Insurance MEDICARE MEDICARE MEDICARE Advance Directives For more information, please contact: [phone] * Full Code (Latest Code Status on [...] 12:59 PM 11/07/2013 4:01 PM Care Teams Psychological Science Professor Relationship Specialty Start Date End Date [facility] - [address] [address] PCP - General Internal Medicine 10/15/23
--- OUTSIDE RECORDS SUMMARY | 2025-03-31 03:28 | XMS_ITS | Encounter Summary ---
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
--- OUTSIDE RECORDS SUMMARY | 2025-03-31 03:29 | XMS_ITS | Encounter Summary ---
Author Organization [facility] Address [address] [place] [address] Care Team Providers Care Cardiopulmonary Supervisor Name Role Phone Stefanie Donis APRN C.N.P. Primary Care Provi amie Reason for Visit * Reason Comments Med Refill Encounter Details Date Type Department Care Team (Late st Contact Info) Description 02/18/2025 Refill Department of Family Medicine, [facility], in [place], [place] [address] [address] Stanislav Leyva M.D. [address] [place] [address] Med Refill Social History Tobacco Use [...] needed for daily living? Patient declined 12/26/2024 [facility] Utilities Answer Date Recorded In the past 12 months has th e [employer], gas, oil, or water [employer] threatened to shut off services in your home? Patient declined 12/26/2024 Depression Answer Date Recor ded PHQ-9 Total Score (max 27) 13 01/06 Housing Stability Answer Date Recorded What is your living situatio n today? I do not have a steady place to live (I am temporarily staying with others, in a hotel, in a assisted, living outside on the street, on a beach, in a car, abandoned building, bus or train station, or in a park) 12/26/2024 Sex and Gender Information Value Date Recorded Sex Assigned at Not on file Legal Sex Male 10:34 PM IMPORT/EXPORT AGENT Gender Identity Not on file Sexual Orientation [...] He would like this sent to the [facility] pharmacy. PLAN Disposition/Recommendation: notified provider and awaiting [...] documented as of this encounter Care Teams Cardiopulmonary Supervisor Relationship Specialty Start Date End Date Stefanie Donis APRN, C.N.P. [address] [address] PCP - General Family Medicine 08/20/24 documented as of this encounter
--- OUTSIDE RECORDS SUMMARY | 2025-03-31 03:29 | XMS_ITS | Encounter Summary ---
Author Organization [place] Address [address] [place] [address]. [place] [address] Care Team Providers Care Assistant Golf Course Superintendent Name Role Phone Clinic - [facility] Primary Care Provider Reason for Visit * Reason Onset Date Comments MH/CD Inpatient 07/08/2024 Encounter Details Date Type Department Care Team ([facility] st Contact Info) Description 07/08/2024 Telephone [facility] Behavioral Health Intake [address] [place] [address] Generic, Behavioral Intake, MH/CD Inpatient [...] in an abandoned building, in an overnight detention, or couch-surfing.) No 07/09/2024 Are you worried [...] on file Legal Sex Male 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 [facility] is posting 0 beds. [facility] is posting 7 beds. [phone]: Per RN @ 12:19PM, they are already reviewing otherreferrals. She suggests calling back after 5PM [facility] is posting 0 beds. Negative covid required. [facility] is posting 0 beds. Neg covid. No high school/Kemi-psych. [phone]. Per Brittany @ 12:20PM, they are full today but Intake can call back tomorrow [facility] is posting 0 beds. [phone]. [facility] is posting 0 beds. [phone]. [facility] is posting 6 beds. (Ages 18-35) Negative covid, no aggression, physical or sexual assault, violence hx or drug abuse, or psychosis. [phone]; Per Nav @ 3:15PM, no YA beds [facility] is posting 0 beds. [facility] is posting 0 beds [phone]. Per Yoselin @ 12:22PM, [facility] is at full capacity until tomorrow after 8AM NICIAN SUBMARINE CABLE EQUIPMENT documented in this encounter Plan of Treatment Not on file documented as of this encounter Visit Diagnoses Not on filedocumented in this encounter Care Teams Assistant Golf Course Superintendent Relationship Specialty Start Date End Date Clinic - [address] [address] PCP - General Internal Medicine 10/15/23 documented as of this encounter
--- OUTSIDE RECORDS SUMMARY | 2025-03-31 03:30 | XMS_ITS | Encounter Summary ---
Author Organization [facility] Address [address] [place] [address] Care Team Providers Care Gemologist Name Role Phone Stefanie Donis APRN, C.N.P. Primary Care Provi amie Reason for Visit * Reason Comments Med Refill Encounter Details Date Type Department Care Team (Late st Contact Info) Description 03/06/2025 Refill Department of Family Medicine, [facility], in [place], [place] [address] [address] Stefanie Donis APRN, C.N.P. [address] [place] [address] Med Refill Social History Tobacco [...] needed for daily living? Patient declined 12/26/2024 [facility] Utilities Answer Date Recorded In the [...] with others, in a hotel, in a half-way, living outside on the street, on a beach, in a car, abandoned building, bus or train station, or in a park) 12/26/2024 Sex and Gender Information Value Date Recorded Sex Assigned at Not on file Legal Sex Male 10:34 PM JACK WINDER Gender Identity Not on file Sexual Orientation [...] documented as of this encounter Care Teams Gemologist Relationship Specialty Start Date End Date Stefanie Donis APRN, C.N.P. [address], [place] [phone] PCP - General Family Medicine 08/20/24 documented as of this encounter
--- OUTSIDE RECORDS SUMMARY | 2025-03-31 03:31 | XMS_ITS | Encounter Summary ---
Author Organization [employer] Address [address], [place] [address] Care Team Providers Care Pulp Operator Name Role Phone Meng Conner MD Primary Care Provider Unavailab le Encounter Details Date Type Department Care Team (Late st Contact Info) Description 03/12/2025 Notes/Orders [facility] Orthopedic [facility] [address] [place], [place] [id number] Derrell Lei MD [address] [place] [address] Social History Tobacco Use Types Packs/Day Years Used Date Smoking Tobacco: Former Cigarettes Q uit: 01/2023 Smokeless Tobacco: Never Alcohol Use Standard Drinks/Week Comments No 0 (1 standard drink = 0.6 oz pur e alcohol) [facility] Utilities Answer Date Recorded In the past 12 months has [facility] [employer], gas, oil, or water [employer] threatened to shut off services in [...] place to sleep or slept in a jail (including now)? Yes 12/23/2023 Sex and Gender Information Value Date Recorded Sex Assigned at Not on file Legal Sex Male 7:12 AM CDT Gender Identity Not on file Sexual Orientation Not on file documented as of this encounter Plan of Treatment Not on file documented as of this encounter Visit Diagnoses Not on filedocumented in this encounter Care Teams Pulp Operator Relationship Specialty Start Date End Date Meng Conner MD [address] [facility], [address] PCP - General 02/03/16 documented as of this encounter
--- OUTSIDE RECORDS SUMMARY | 2025-03-31 03:31 | XMS_ITS | Encounter Summary ---
Author Organization [facility] Address [address] [place] [address] Care Team Providers Care Job Printer Apprentice Name Role Phone Stefanie Donis APRN, C.N.P. Primary Care Provi amie Reason for Visit * Reason Comments Med Refill Encounter Details Date Type Department Care Team (Late st Contact Info) Description 03/06/2025 Refill Department of Family Medicine, [facility], in [place], [place] [address] [address] Stefanie Donis APRN, C.N.P. [address] [place] [address] Med Refill Social History [...] needed for daily living? 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 [address] [place] [address] PCP - General Family Medicine 08/20/24 documented as of this encounter
[2025-03-31 03:32] VITALS: BP 119/93; PULSE 104; RESP 16; TEMP 36.4; O2SAT 99; BMI 30.4
--- OUTSIDE RECORDS SUMMARY | 2025-03-31 03:32 | XMS_ITS | Clinical Summary ---
Author Organization [facility] Address [address] [place] [address] Care Team Providers Care Reverse Unit Operator Name Role Phone Meng Conner MD [...] for each transition of care or referral. Sponge Allergies Active Allergy Reactions Criticality Noted Date [...] (07/26/2022): Added automatically from request for surgery [id number] Chronic pain of right knee 05/24/2022 Overview (05/24/2022): Added automatically from request for surgery [id number] Effusion of right knee 05/24/2022 Overview (05/24/2022): Added automatically from request for surgery [id number] Painful orthopaedic hardware 05/24/2022 Overview (05/24/2022): Added automatically from request for surgery [id number] Multiple fractures of pelvis with stable disruption of pelvic [place] [employer] with routine healing 03/13/2015 Femur fracture, [...] Type Department Care Team Description 03/12/2025 Notes/Orders [place] [address] [place] [address] Derrell Lei MD from Last 3 Months Immunizations Immunization Administration Dates Next Due 9vHPV (Gardasil 9) 06/08/2022 Flu Vac (3+ yrs) 04/11/2007 Fluzone Qiv Multidose Vial 0.25 (6-35 Mos) 04/29 Influenza IIV4 (Quadrivalent) 0.5mL (57049) 03/04,08/22/2013 PPSV23 (Pneumovax) 08/22/2013 Tdap 02/22/2015,02/13/2007 Social History Tobacco Use Types Packs/Day Years Used Date Smoking Tobacco: Former Cigarettes Q uit: 01/2023 Smokeless Tobacco: Never Alcohol Use Standard Drinks/Week Comments No 0 (1 standard drink = 0.6 oz pur e alcohol) [facility] Utilities Answer Date Recorded In the past 12 months has th e [employer], oil, or water [employer] threatened to shut off services in your [...] 12:29 AM 07/22/2013 2:01 PM Care Teams Reverse Unit Operator Relationship Specialty Start Date End Date Meng Conner MD [address] [place], [address] PCP - General 02/03/16
--- OUTSIDE RECORDS SUMMARY | 2025-03-31 03:33 | XMS_ITS | Clinical Summary ---
Author Organization [facility] Address [address] [place] [address] Care Team Providers Care Raw Stock Machine Loader Name Role Phone Stefanie Donis APRN C.N.PPaola Primary Care Provi amie Source Comments Patient records contain information from all sites at [facility]. For routine questions regarding patient records, call [phone] during business hours, M-F 8:00 AM - 5:00 PM Central Time. Record requests for emergency care only can be directed to [phone] at any time.[facility] Allergies No known active allergies Medications [...] Description 03/06/2025 Refill Department of Family Medicine, [facility], in [place], [place] [address] [phone] Stefanie Donis APRN, C.N.P. Med Refill 03/06/2025 Refill Department of Family Medicine, [facility], in [place], [place] [address] [place] [phone] Stefanie Donis APRN, C.N.P. Med Refill 02/23/2025 7:46 AM CDT - 02/23/2025 10:00 AM CDT Emergency [facility] Emergency Department [address] [place] [phone] Enrique Griffith M.D. Contusion Front Chest Wall Initial Right (Primary Dx) Discharge Disposition: Home or Self Care 02/18/2025 Refill Department of [facility], [facility], in [place], [place] [address] [place] [phone] Stanislav Leyva M.D. Med Refill 02/07/2025 9:27 PM CDT - 02/07/2025 11:43 PM CDT Emergency [facility] Emergency Department [facility] [place] [phone] Justen Bergman D.O. Other Esophagitis Without Bleeding (Primary Dx); Other Dysphagia Discharge Disposition: Home or Self Care 01/27/2025 11:57 AM CDT - 01/27/2025 11:59 PM CDT Emergency [facility] ED [address] [place] [address] Discharge Disposition: Home or Self Care 01/23/2025 Refill Department of Family Medicine, [facility], in [place], [place] [address] [phone] Stefanie Donis APRN, C.N.P. Med Refill 01/23/2025 Orders Only Department of [facility], [facility], in [place], [place] [facility] [place] [address] Stefanie Donis APRN, C.N.P. 01/14/2025 12:00 PM CDT Office Visit Department of Family Medicine, [facility], in [place], [place] [address] [address] Stefanie Donis APRN, C.N.P. Benji Hoang R.N. Annual Medicare Examination Return (Primary Dx) 01/14/2025 11:30 AM CDT Office Visit Department of Family Medicine, [facility], in [place], [place] [address] [address] Stefanie Donis APRN, C.N.P. Obesity Body Mass Index 30-39.9 Adult (Primary Dx); Schizoaffective Disorder (HCC) 01/06/2025 Clinical Communication [facility] [address] [place] [address] Mikki Ballard M.D. Post Hospital Follow-up 01/06/2025 Orders Only [facility] Stefanie Donis APRN, C.N.P. from Last [...] needed for daily living? 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 LAB BLOOD TROPONIN Final Resul t [facility] [address] [place] [address], [facility] [address] [place] [address] * (ABNORMAL) Prothrombin Time (PT) (02/23/2025 8:13 AM CDT) Only the most recent of2 resultswithin the time period is included. [facility] Prothrombin Time, P 13.0(H) 9.4 - 12.5 sec 02/23/2025 8:25 AM CDT [facility] INR 1.2 0.9 - 1.1 02/23/2025 8:25 AM CDT [facility] Comment: ----ADDITIONAL INFORMATION---- Standard intensity warfarin therapeutic range: 2.0 to 3.0 High intensity warfarin therapeutic range: 2.5 to 3.5 Blood (Blood, Venous) 02/23/2025 8:13 AM CDT 02/23/2025 8:18 AM CDT us Enrique Griffith M.D. LAB BLOOD ADD-ON Final Result [place] [address] [place] [address], [address] [address] * (ABNORMAL) CBC with Differential, Blood (02/23/2025 8:13 AM CDT) Only the most recent of2 resultswithin the time period is included. Pathologist [facility] Hemoglobin 13.4 13.2 - 16.6 g/dL 02/23/2025 [...] Griffith M.D. LAB BLOOD ADD-ON Final Result [facility] [address] [place] [address], [facility] [address] [place] [address] [facility] [address] [place] [address] * Basic Metabolic Panel (02/23/2025 8:13 AM [...] BLOOD ADD-ON Final Result Performing Organization Address [facility] Co de Phone Number [facility] [address] [place] [address], [facility] [address] [place] [address] * ECG 12 Lead (02/23/2025 7:51 AM CDT) Ventricular Rate ECG/Min 80 BPM MUSE IL Interval 140 ms MUSE QRSD Interval 86 ms MUSE QT Interval 338 ms MUSE QTC Interval 389 ms MUSE P [place] 28 degrees MUSE R [place] -2 degrees MUSE T Wave [place] 35 degrees MUSE 02/23/2025 7:51 AM CDT [...] Reflex Antibody ID) (02/07/2025 9:44 PM CDT) [facility] ABORh A Pos Not applicable 02/07/2025 10:16 PM CDT [facility] Antibody Screen Negative Negative 02/07/2025 10:32 PM CDT [facility] Type & Screen Expiration 02/10/2025 23:59 02/07/2025 10:16 PM CDT STRM Testing Location [facility] 02/07/2025 9:52 PM CDT [facility] Blood (Blood, Venous) 02/07/2025 9:44 PM CDT 02/07/2025 9:52 PM CDT Justen Bergman D.O. LAB BLOOD BANK TEST ORD ERABLES Final Result [facility] [address] [place] [address], [facility] [address] [place] [address] * Lactate (02/07/2025 9:44 PM CDT) [facility] Lactate, P 2.1 0.5 - 2.2 mmol/L 02/07/2025 10:03 PM CDT [facility] Blood (Blood, Venous) 02/07/2025 9:44 PM CDT 02/07/2025 9:49 PM CDT us Justen Bergman D.O. LAB BLOOD NON ADD-ON Fi nal Result [facility] [address] [place] [address], [facility] STMA [facility] [address] [place] [address] * (ABNORMAL) Lipid Panel (01/05/2025 9:02 AM [...] ADD-ON Final Res ult Performing Organization Address City/[facility]/ZIP Co de Phone Number [facility] [address] [place] [address], [facility] [address] [place] [address] * (ABNORMAL) Sodium (01/05/2025 9:02 AM CDT) Sodium, S 134(L) 135 - 145 mmol/L 01/05/2025 10:14 AM CDT [facility] Blood (Blood, Venous) 01/05/2025 9:02 AM CDT 01/05/2025 9:53 AM CDT Mikki Ballard M.D. LAB BLOOD ADD-ON Final Res ult Performing Organization Address City/[facility]/ZIP Co de Phone Number [facility] [address] [place] [address], [facility] [address] [place] [address] * Drug Screen Urine (01/02/2025 8:48 AM [...] Ballard M.D. LAB URINE ORDERABLES Final Result [facility] [address] [place] [address], [facility] [address] [place] [address] * Phosphatidylethanol Confirmation (01/01/2025 2:41 PM CDT) PEth 16:0/18:1 (POPEth) by LC-MS/MS 152 Cutoff: 10 ng/mL 01/02/2025 10:34 AM CDT [facility] Comment: Phosphatidylethanol (PEth) homologues result interpretation [...] Cutoff: 10 ng/mL 01/02/2025 10:34 AM CDT [facility] Comment: PEth 16:0/18:2 (PLPEth) Reference ranges are not well established PEth Interpretation Positive. 01/02 10:34 AM CDT [facility] Comment: ----ADDITIONAL INFORMATION---- This report is intended for use in clinical monitoring and management of patients. It is not intended for use in employment-related testing. This test was developed and its performance characteristics determined by [facility] in a manner consistent with CLIA requirements. This test has not been cleared or approved by the U.S. Food and Drug Administration. Blood (Blood, Venous) 01/01/2025 2:41 PM CDT 01/01/2025 7:22 PM CDT Mikki Ballard M.D. LAB BLOOD ADD-ON Final Res ult [facility] [address] [place] [address] [facility] [address] [place] [address] [place] [address] from Last 3 Months Insurance MEDICARE Advance Directives For more information, please contact: [phone] * Full Code (Latest Code Status on File) Date Activated Date Inactivated Comments 12/25/2024 1:31 PM 01/07/2025 12:13 PM Question Answer Comments Full Code: Not Discussed Due to: Not medically appropriate Care Teams Raw Stock Machine Loader Relationship Specialty Start Date End Date Stefanie Donis APRN, C.N.P. [address] [place] [address] PCP - General Family Medicine 08/20/24
--- OUTSIDE RECORDS SUMMARY | 2025-03-31 03:34 | XMS_ITS | Clinical Summary ---
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 Gender Identity Not on file Sexual [...] - 11.0 thou/cu mm 01/27/2025 12:31 PM [facility] RED BLOOD COUNT 4.84 4.30 - 5.90 mil/cu mm 01/27/2025 12:31 PM [facility] HEMOGLOBIN 14.0 13.5 - 17.5 g/dL 01/27/2025 12:31 PM [facility] HEMATOCRIT 43.4 37.0 - 53.0 % 01/27/2025 12:31 PM [facility] MCV 90 80 - 100 fL 01/27/2025 12:31 PM [facility] MCH 28.9 26.0 - 34.0 pg 01/27/2025 12:31 PM [facility] MCHC 32.3 32.0 - 36.0 g/dL 01/27/2025 12:31 PM [facility] RDW 13.7 11.5 - 15.5 % 01/27/2025 12:31 PM [facility] PLATELET COUNT 278 140 - 440 thou/cu mm 01/27/2025 12:31 PM [facility] MPV 9.4 6.5 - 11.0 fL 01/27/2025 12:31 PM [facility] % NEUT 77.1 % 01/27/2025 12:31 PM [facility] % LYMPH 13.4 % 01/27/2025 12:31 PM [facility] % MONO 8.0 % 01/27/2025 12:31 PM [facility] % EOS 0.9 % 01/27/2025 12:31 PM [facility] % BASO 0.6 % 01/27/2025 12:31 PM [facility] ABSOLUTE NEUTROPHILS 6.7 1.7 - 7.0 thou/cu mm 01/27/2025 12:31 PM [facility] ABSOLUTE LYMPHOCYTES 1.2 0.9 - 2.9 thou/cu mm 01/27/2025 12:31 PM [facility] ABSOLUTE MONOCYTES 0.7 <0.9 thou/cu mm 01/27/2025 12:31 PM [facility] ABSOLUTE EOSINOPHILS 0.1 <0.5 thou/cu mm 01/27/2025 12:31 PM CDT [facility] ABSOLUTE BASOPHILS 0.1 <0.3 thou/cu mm 01/27/2025 12:31 PM CDT [facility] Blood BLOOD SPECIMEN / Unknown Venipuncture / Unknown 01/27/2025 12:24 PM CDT 01/27/2025 12:27 PM CDT Salvador RUBIN HEMATOLOGY Fin al Result Performing Organization Address [facility] Co de Phone Number [facility] [address] [phone] * ETHANOL SERUM OR PLASMA (01/27/2025 12:24 PM CDT) ETHANOL <0.010 <0.010 g/dL 01/27/2025 12:49 PM CDT [facility] Blood BLOOD SPECIMEN / Unknown Venipuncture / Unknown 01/27/2025 12:24 PM CDT 01/27/2025 12:27 PM CDT Salvador RUBIN CHEMISTRY Fin al Result Performing Organization Address [facility] Phone Number [facility] [address] [phone] * MAGNESIUM (01/27/2025 12:24 PM CDT) MAGNESIUM 2.0 1.6 - 2.6 mg/dL 01/27/2025 12:52 PM CDT [facility] Blood BLOOD SPECIMEN / Unknown Venipuncture / Unknown 01/27/2025 12:24 PM CDT 01/27/2025 12:27 PM CDT Salvador RUBIN CHEMISTRY Fin al Result Performing Organization Address [facility] de Phone Number [facility] [address] [phone] * LIPASE (01/27/2025 12:24 PM CDT) LIPASE 32.6 13.0 - 60.0 IU/L 01/27/2025 12:52 PM CDT [facility] Blood BLOOD SPECIMEN / Unknown Venipuncture / Unknown 01/27/2025 12:24 PM CDT 01/27/2025 12:27 PM CDT us Salvador RUBIN CHEMISTRY Fin al Result Performing Organization Address City/State/[facility] Co de Phone Number [facility] [address] [address] * HEPATIC FUNCTION PANEL (01/27/2025 12:24 PM CDT) ALBUMIN 4.0 4.0 - 4.9 g/dL 01/27/2025 12:52 PM CDT [facility] PROTEIN,TOTAL 7.1 6.0 - 8.0 g/dL 01/27/2025 12:52 PM T [facility] BILIRUBIN,TOTAL <0.2 0.0 - 1.2 mg/dL 01/27/2025 12:52 PM T [facility] BILIRUBIN,DIRECT <0.1 0.0 - 0.2 mg/dL 01/27/2025 12:52 PM T [facility] BILIRUBIN,INDIRE CT 01/27/2025 12:52 PM T [facility] Comment:Unable to calculate, Direct Bili <0.1 ALK PHOSPHATASE 70 40 - 129 IU/L 01/27/2025 12:52 PM T [facility] ALT (SGPT) 18 10 - 50 IU/L 01/27/2025 12:52 PM T [facility] AST (SGOT) 19 10 - 50 IU/L 01/27/2025 12:52 PM T [facility] Blood BLOOD SPECIMEN / Unknown Venipuncture / Unknown 01/27/2025 12:24 PM CDT 01/27/2025 12:27 PM CDT us Salvador RUBIN CHEMISTRY Fin al Result [facility] [address] [place] [phone] * (ABNORMAL) BASIC METABOLIC PANEL (01/27/2025 12:24 PM CDT) SODIUM 138 136 - 145 mmol/L 01/27/2025 12:52 PM [facility] POTASSIUM 4.3 3.5 - 5.1 mmol/L 01/27/2025 12:52 PM [facility] CHLORIDE 102 98 - 107 mmol/L 01/27/2025 12:52 PM [facility] CO2,TOTAL 23 22 - 29 mmol/L 01/27/2025 12:52 PM [facility] ANION GAP 13 5 - 18 01/27/2025 12:52 PM [facility] GLUCOSE 129(H) 70 - 99 mg/dL 01/27/2025 12:52 PM [facility] CALCIUM 9.4 8.8 - 10.4 mg/dL 01/27/2025 12:52 PM [facility] Comment: Reference ranges for this test were updated on 04/08/2024 to reflect our healthy population more accurately. Reference range changes are not retroactively applied to results, but previous results using the same methodology can be interpreted in the context of the new reference range. BUN 23(H) 6 - 20 mg/dL 01/27/2025 12:52 PM [facility] CREATININE 1.07 0.70 - 1.20 mg/dL 01/27/2025 12:52 PM [facility] BUN/CREAT RATIO 21(H) 10 - 20 12:52 PM [facility] eGFR 89(L) >90 mL/min/1.7 3m2 01/27/2025 12:52 PM [facility] Comment:As of 2021, eG FR is calculated [...] us Salvador RUBIN CHEMISTRY Fin al Result [facility] [address] [place] [phone] * UA W/ SEDIMENT EXAM REFLEXED PER CRITERIA (01/27/2025 12:12 PM CDT) COLOR Yellow Yellow Color 01/27/2025 12:19 PM T [facility] CLARITY Clear Clear Clarity 01/27/2025 12:19 PM [facility] SPECIFIC GRAVITY,URINE 1.020 1.010, 1.015, 1.020, 1.025 01/27/2025 12:19 PM [facility] PH,URINE 6.0 6.0, 7.0, 8.0, 5.5, 6.5, 7.5, 8.5 01/27/2025 12:19 PM [facility] UROBILINOGEN,Q UALITATIVE Normal Normal EU/dl 01/27/2025 12:19 PM [facility] PROTEIN, URINE Negative Negative mg/dL 01/27/2025 12:19 PM [facility] GLUCOSE, URINE Negative Negative mg/dL 01/27/2025 12:19 PM [facility] KETONES,URINE Negative Negative mg/dL 01/27/2025 12:19 PM [facility] BILIRUBIN,URIN E Negative Negative 01/27/2025 12:19 PM [facility] OCCULT BLOOD,URINE Negative Negative 01/27/2025 12:19 PM [facility] NITRITE Negative Negative 01/27/2025 12:19 PM [facility] LEUKOCYTE ESTERASE Negative Negative 01/27/2025 12:19 PM [facility] Urine URINE SPECIMEN / Unknown Non-Blood / Unknown 01/27/2025 12:12 PM CDT 01/27/2025 12:16 PM CDT us Salvador Cochran PA URINE Fin al Result [facility] [address] [address] * (ABNORMAL) LC LIPID PANEL AND CHOL/HDL RATIO (09/28/2022 8:27 AM CDT) [facility] Cholesterol, Total 182 100 - 199 mg/dL 09/30/2022 10:09 AM CDT [facility] Triglycerides 69 0 - 149 mg/dL 09/30/2022 10:09 AM CDT [facility] ([facility] HDL Cholesterol 56 >39 mg/dL 10:09 AM T [facility] ([facility] VLDL Cholesterol Markel 13 5 - 40 mg/dL 09/30/2022 10:09 AM CDT [facility] LDL Chol Calc ([facility]) 113(H) 0 - 99 mg/dL 09/30/2022 10:09 AM T [facility] T. Chol/HDL Ratio 3.3 0.0 - 5.0 ratio 09/30/2022 10:09 AM T [facility] ([facility] Comment: T. Chol/HDL Ratio Men Women 1/2 Avg.Risk 3.4 3.3 Avg.Risk 5.0 4.4 2X Avg.Risk 9.6 7.1 3X Avg.Risk 23.4 11.0 Blood BLOOD SPECIMEN / Unknown Venipuncture / Unknown 09/28/2022 8:27 AM CDT 09/28/2022 8:29 AM CDT Narrative [facility] ([facility]) - 09/30/2022 10:09 AM CDT Performed at: [address] [place] [address] [address] [place], [place] [id number] Application Development Consultant: Vin Hensley MD, Phone: [phone] Lamont Mccoy MD SEND OUTS Final R esult Performing Organization Address City/[facility]/ZIP Co de Phone Number [facility] [address] [place] [address], * LC HCV ANTIBODY RFX TO QUANT PCR (09/28/2022 8:27 AM CDT) HCV Ab Non Reactive Non Reactive 09/30/2022 2:08 PM CDT [facility] Blood BLOOD SPECIMEN / Unknown Venipuncture / Unknown 09/28/2022 8:27 AM CDT 09/28/2022 8:29 AM CDT Narrative [facility] - 09/30/2022 2:08 PM CDT Performed at: [facility] [employer] [place], [place] [id number] Application Development Consultant: Vin Hensley MD, Phone: [phone] Lamont Mccoy MD LABORATORY Final R esult Performing Organization Address City/[facility]/ZIP Co de Phone Number [facility] ([place]) [address] [place] [address], * HIV-1/O/2, 4TH GENERATION (09/28/2022 8:27 AM CDT) Pathologist [facility] HIV Scr 4th Gen Non Reactive Non Reactive 09/30/2022 12:07 PM CDT [facility] Comment: HIV Negative HIV-1/HIV-2 antibodies and HIV-1 p24 antigen were NOT detected. There is no laboratory evidence of HIV infection. Blood BLOOD SPECIMEN / Unknown Venipuncture / Unknown 09/28/2022 8:27 AM CDT 09/28/2022 8:29 AM CDT Narrative [facility]) - 09/30/2022 12:07 PM CDT Performed at: [address] [place], [place] [address] [address] [id number] Application Development Consultant: Vin Hensley MD, Phone: [phone] Lamont Mccoy MD LABORATORY Final R esult [facility] ([facility]) 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 PCP - General 06/15/13
--- OUTSIDE RECORDS SUMMARY | 2025-03-31 03:36 | XMS_ITS | Encounter Summary ---
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
--- NOTE | 2025-03-31 03:58 | CRLHL7_ITS ---
For Patients: As a result of the Century Cures Act, medical imaging exams and procedure reports are released immediately into your electronic medical record. You may view this report before your referring provider. If you have questions, please contact your health care provider. INDICATION: Left lower quadrant pain. GI bleeding. TECHNIQUE: CT abdomen and pelvis acquired with 97 cc Isovue 370 IV contrast. COMPARISON: October 06, 2024. FINDINGS: Lower chest: Numerous granulomas in the lung bases. Liver: Fatty infiltration. Otherwise unremarkable. Gallbladder and bile ducts: Unremarkable. No stones or inflammation. No biliary dilatation. Pancreas: Unremarkable. No mass or inflammation. Spleen: Unremarkable. Normal in size. No masses. Adrenal glands: Unremarkable. No nodules. Kidneys: Unremarkable. No suspicious masses, stones, or hydronephrosis. GI tract: Unremarkable. Normal in caliber. No sign of mass or inflammation. Normal appendix. Vasculature: Abdominal aorta is normal in caliber. Mesenteric arteries are patent. Lymph nodes: No lymphadenopathy. Peritoneum/Abdominal Wall: Unremarkable. No sign of mass or infiltration. No free air or significant free fluid. Pelvis: Unremarkable. Bones: Unremarkable for age. IMPRESSION: Unremarkable CT of the abdomen and pelvis. No findings to explain left lower quadrant pain or GI bleeding. Please note that all CT scans at this facility use dose modulation, iterative reconstruction, and/or weight-based dosing when appropriate to reduce radiation dose to as low as reasonably achievable. Dictated by Pepe Jerome MD @ 03/31/2025 4:54:56 AM (Electronically Signed)
[2025-03-31] MEDS: ONDANSETRON 2 MG/ML inj 4 MG IVP (04:00)
[2025-03-31 04:09] LABS: Fecal Occult Blood* Negative (Negative)
[2025-03-31 04:13] LABS: Hematocrit* 44.9 % (37.0-53.0); Hemoglobin* 15.1 gm/dL (13.5-17.5); Immature Granulocytes Abs Auto 0.02 K/uL (0.00-0.30); Immature Granulocytes Pct Auto 0.2 %; Lymphocytes Absolute Auto 2.49 K/uL (0.90-2.90); Mean Corpuscular HGB Conc 34 gm/dL (32-36); Mean Corpuscular Hemoglobin 28 pg (26-34); Mean Corpuscular Volume 83 fL (80-100); RDW Coefficient of Variation % 12.5 % (11.5-15.5); Red Blood Count* 5.43 m/uL (4.30-5.90); White Blood Count* 10.23 K/uL (4.50-11.00)
[2025-03-31 04:16] LABS: Appearance Urine Clear (Clear)
[2025-03-31 04:19] LABS: Lactate* 5.0 mmol/L (0.5-1.9); Slide Review Reflex No
[2025-03-31 04:20] LABS: Other Sediment Urine Moderate
[2025-03-31 04:24] LABS: Cannabinoid Screen Urine Negative (Negative); Methamphetamines Screen Urine Negative (Negative); Tricyclic Antidepressant Urine POSITIVE (Negative)
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
[2025-03-31 04:35] LABS: Albumin* 5.3 g/dL (3.3-5.0); Chloride* 105 mmol/L (96-114); Sodium* 140 mmol/L (135-149)
[2025-03-31 04:38] LABS: Alanine Aminotransferase* 30 U/L (4-50); Alkaline Phosphatase* 59 U/L (40-150); Anion Gap 17 mEq/L (7-15); Bilirubin Total* 2.1 mg/dL (0.1-1.5); Blood Urea Nitrogen* 14 mg/dL (5-24); Carbon Dioxide* 18 mmol/L (20-32); Creatinine* 1.2 mg/dL (0.5-1.5); Est. Creatinine Clearance* 77.58; Estimated Glomerular Filt Rate 77 ml/min; Total Protein* 10.0 g/dL (6.0-8.3)
[2025-03-31 04:39] LABS: Calcium* 9.7 mg/dL (8.4-10.6); Glucose* 114 mg/dL (60-115)
[2025-03-31 04:56] LABS: Potassium* 3.4 mmol/L (3.6-5.1)
[2025-03-31 04:59] LABS: Aspartate Amino Transferase* 30 U/L (12-35)
[2025-03-31] MEDS: ACETAMINOPHEN INJ 1,000 MG/100 ML VIAL 400 MG IVPB (05:20)
[2025-03-31 06:09] VITALS: BP 168/89; PULSE 98; RESP 16; O2SAT 98
== END 2025-03-31 06:11 | disposition home or self-care (01) ==
PROVIDERS: Emergency Provider Family Medicine
DX: E86.0 Dehydration (principal); F19.139 Other psychoactive substance abuse with withdrawal, unspecified
CPT/HCPCS: 36415; 74177; 80053; 80306; 81001; 81003; 82270; 83605; 83690; 85025; 86140; 87086; 96365; 96375; 99284; J0131; J1885; J2405; J7030; Q9967